=== PATIENT | male | born 1960 | race Caucasian/White ===

== ENCOUNTER 2020-07-29 18:13 | Emergency (ER) | payer OTHER, SELFPAY ==
[2020-07-29 18:22] VITALS: BP 124/80; PULSE 104; RESP 18; TEMP 36.6; O2SAT 96; BMI 25.8
--- NOTE | 2020-07-29 18:30 | ECG_ITS ---
Test Reason : weakness Blood Pressure : / mmHG Vent. Rate : 097 BPM Atrial Rate : 097 BPM P-R Int : 150 ms QRS Dur : 078 ms QT Int : 374 ms P-R-T Axes : 055 015 066 degrees QTc Int : 474 ms Normal sinus rhythm Normal ECG When compared with ECG of 03-MAY-2020 15:33, Borderline criteria for Inferior infarct are no longer Present Referred By: Denise Nina Electronically Signed By:KYLE MONTEZ
--- NOTE | 2020-07-29 18:32 | ED.NAVMDI ---
HPI - Nausea/Vomiting/Diarrhea General Chief complaint: Nausea/Vomiting/Diarrhea <Denise Nina NP - Last Filed: 07/29/20 21:19> Stated complaint: NVD <Denise Nina NP - Last Filed: 07/29/20 21:19> Time Seen by Provider: 07/29/20 18:21 <Denise Nina NP - Last Filed: 07/29/20 21:19> Source: patient and EMS <Denise Nina NP - Last Filed: 07/29/20 21:19> Mode of arrival: EMS <Denise Nina NP - Last Filed: 07/29/20 21:19> Limitations: no limitations <Denise Nina NP - Last Filed: 07/29/20 21:19> History of Present Illness HPI Narrative: 60-year-old male with a past medical history of ADD, D DD, depression, diabetes, high cholesterol, substance abuse, osteoarthritis, pancreatitis, alcohol abuse here with complaints of nausea, vomiting, diarrhea x2 days. No abdominal pain. No fevers, chills, urinary symptoms. The patient does drink daily about 2-3 nebs and has been cutting down. His last drink was today at 14:00. <Denise Nina NP - Last Filed: 07/29/20 21:19> MD elicited complaint: nausea, vomiting and diarrhea <Denise Nina NP - Last Filed: 07/29/20 21:19> Onset (ago): day(s) <Denise Nina NP - Last Filed: 07/29/20 21:19> Associated nausea: Yes <Denise Nina NP - Last Filed: 07/29/20 21:19> Associated abdominal pain: No <Denise Nina NP - Last Filed: 07/29/20 21:19> Exacerbating factors: none <Denise Nina NP - Last Filed: 07/29/20 21:19> Relieving factors: none <Denise Nina NP - Last Filed: 07/29/20 21:19> Associated symptoms: nausea/vomiting <Denise Nina NP - Last Filed: 07/29/20 21:19> Related Data Home medications: Home Medications Medication Instructions Recorded Confirmed acamprosate 333 mg tablet,delayed 666 mg PO TID 06/11/20 release amitriptyline 25 mg tablet 25 mg PO DAILY 06/11/20 bupropion HCl 150 mg tablet,12 hr 150 mg PO DAILY 06/11/20 sustained-release fluticasone furoate 50 INHALATION 06/11/20 mcg/actuation blister powder for inhalation gabapentin 300 mg tablet 300 mg PO DAILY 06/11/20 insulin glargine 100 unit/mL (3 15 unit SUBCUT BID 06/11/20 mL) subcutaneous pen insulin lispro 100 unit/mL 8 unit SUBCUT TID 06/11/20 subcutaneous pen naltrexone 50 mg tablet 50 mg PO DAILY 06/11/20 polyethylene glycol 3350 17 gram 17 g PO DAILY 06/11/20 oral powder packet quetiapine 100 mg tablet 100 mg PO DAILY 06/11/20 thiamine HCl (vitamin B1) 100 mg 50 mg PO DAILY 06/11/20 tablet Previous Rx's Medication Instructions Recorded insulin lispro 100 unit/mL 12 unit SUBCUT TID 30 Days #15 ml 05/31/20 subcutaneous pen gabapentin 400 mg capsule 400 mg PO TID #90 cap 07/02/20 cholecalciferol (vitamin D3) 25 25 mcg PO DAILY #90 cap 07/24/20 mcg (1,000 unit) capsule nabumetone 750 mg tablet 750 mg PO BID #60 tab 07/24/20 benzonatate [Tessalon Perles] 100 mg PO TID PRN #14 cap 07/30/20 prochlorperazine maleate 10 mg PO TID PRN #10 tab 07/30/20 [Compazine] <Denise Nina NP - Last Filed: 07/29/20 21:19> Allergies/Adverse reactions: Allergies Allergy/AdvReac Type Severity Reaction Status Date / Time acamprosate Allergy Unknown redness Verified 06/11/20 08:50 and itching Docusate Sodium Allergy Unknown Migraines Verified 07/16/20 14:05 <Denise Nina NP - Last Filed: 07/29/20 21:19> Review of Systems Review of Systems: Yes all other systems are reviewed and are negative <Denise Nina NP - Last Filed: 07/29/20 21:19> Constitutional: Constitutional: Reports no additional constitutional complaints, Denies body ache(s), Denies chills, Denies fever(s), Denies headache(s) and Denies weakness <Denise Nina NP - Last Filed: 07/29/20 21:19> Eyes: Eyes: Reports no additional eye complaints and Denies change in vision <Denise Nina NP - Last Filed: 07/29/20 21:19> ENT: Reports system reviewed and no additional complaints, except as documented, Denies dizziness, Denies headache(s), Denies nasal congestion, Denies nasal discharge and Denies neck pain <Denise Nina NP - Last Filed: 07/29/20 21:19> Cardiovascular: Cardiovascular: Reports no additional cardiovascular complaints, Denies chest pain, Denies leg edema and Denies dyspnea <Denise Nina NP - Last Filed: 07/29/20 21:19> Respiratory: Respiratory: Reports no additional respiratory complaints, Denies cough and Denies dyspnea <Denise Nina NP - Last Filed: 07/29/20 21:19> Gastrointestinal: Gastrointestinal: Denies abdominal pain, Reports diarrhea, Reports nausea and Reports vomiting <Denise Nina NP - Last Filed: 07/29/20 21:19> Genitourinary: Genitourinary: Denies urinary incontinence <Denise Nina NP - Last Filed: 07/29/20 21:19> Musculoskeletal: Musculoskeletal: Reports no additional musculoskeletal complaints, Denies back pain, Denies arthralgias, Denies joint swelling, Denies neck pain, Denies numbness and Denies tingling <Denise Nina NP - Last Filed: 07/29/20 21:19> Integumentary/Breasts: Skin/Breast: Reports system reviewed and no additional complaints, except as docu and Denies rash <Denise Nina NP - Last Filed: 07/29/20 21:19> Neurologic: Reports system reviewed and no additional complaints, except as documented, Denies Abnormal speech present, Denies dizziness, Denies headache(s), Denies numbness, Denies tingling and Denies weakness <Denise Nina NP - Last Filed: 07/29/20 21:19> [facility] Past Medical History Attestation statement: The following information was validated with the patient. <Denise Nina NP - Last Filed: 07/29/20 21:19> Source: old records reviewed and nursing notes reviewed <Denise Nina NP - Last Filed: 07/29/20 21:19> Medical History: Medical History Attention deficit disorder Degenerative disc disease, cervical Depression Diabetes mellitus Dyslipidemia History of substance abuse Hypotestosteronism Osteoarthritis of right hand Pancreatitis <Denise Nina NP - Last Filed: 07/29/20 21:19> Surgical History: Surgical History History of surgery <Denise Nina NP - Last Filed: 07/29/20 21:19> Family History Family History: Family History Father Cancer Mother Cancer Diabetes <Denise Nina NP - Last Filed: 07/29/20 21:19> Social History Social History: Social History Smoking Status: Current every day smoker Use of substances other than those prescribed or required for medical reasons: No Substance Use Frequency: Chronic Longstanding Last Used Substance: Hours (ago) Advance Directives: No Current occupational status: unemployed Current occupation: Right Handed <Denise Nina NP - Last Filed: 07/29/20 21:19> Physical Exam Vital Signs: Vital Signs: Last Vital Signs Temp 98.6 F 07/29/20 21:18 Pulse 89 07/29/20 23:00 Resp 17 07/29/20 22:00 BP 131/89 07/29/20 23:00 Pulse Ox 96 07/29/20 22:00 Body Mass Index 25.8 <Denise Nina NP - Last Filed: 07/29/20 21:19> Vital Signs: Last Vital Signs Temp 98.6 F 07/29/20 21:18 Pulse 89 07/29/20 23:00 Resp 17 07/29/20 22:00 BP 131/89 07/29/20 23:00 Pulse Ox 96 07/29/20 22:00 Body Mass Index 25.8 <Consuelo Izquierdo MD - Last Filed: 07/30/20 00:34> Const: General: cooperative, healthy appearing, comfortable and no acute distress <Denise Nina NP - Last Filed: 07/29/20 21:19> Orientation/consciousness: patient oriented x3 <Denise Nina NP - Last Filed: 07/29/20 21:19> Limitations: no limitations <Denise Nina NP - Last Filed: 07/29/20 21:19> HENMT: Head: Yes normal to inspection <Denise Nina NP - Last Filed: 07/29/20 21:19> Ears: hearing grossly normal bilaterally <Denise Nina NP - Last Filed: 07/29/20 21:19> General nose exam: Normal external nose present <Denise Nina NP - Last Filed: 07/29/20 21:19> Face and sinus: Yes normal facial exam <Denise Nina NP - Last Filed: 07/29/20 21:19> Mouth: Normal oral and palatal mucosa present <Denise Nina NP - Last Filed: 07/29/20 21:19> Throat: Yes posterior oropharynx normal <Denise Nina NP - Last Filed: 07/29/20 21:19> Eyes: General: appearance normal, both eyes and all related structures <Denise Nina NP - Last Filed: 07/29/20 21:19> Pupils: Equal, round and reactive pupils present <Denise Nina NP - Last Filed: 07/29/20 21:19> Neck: Neck: Yes normal visual inspection <Denise Nina NP - Last Filed: 07/29/20 21:19> Chest: Chest palpation & inspection: normal inspection of the chest <Denise Nina NP - Last Filed: 07/29/20 21:19> Resp: Effort & Inspection: normal respiratory effort <Denise Nina NP - Last Filed: 07/29/20 21:19> Auscultation: clear to auscultation bilaterally <Denise Nina ON [employer] SUPER[employer]OR - Last Filed: 07/29/20 21:19> Cardio: Rate: regular rate <Denise Nina NP - Last Filed: 07/29/20 21:19> Rhythm: regular rhythm <Denise Nina [employer]PER[employer] - Last Filed: 07/29/20 21:19> Peripheral pulses: Peripheral pulses 2+ throughout <Denise Nina NP - Last Filed: 07/29/20 21:19> GI: Inspection: Yes normal to inspection <Denise Nina NP - Last Filed: 07/29/20 21:19> Palpation (GI): Soft to palpation and nontender <Denise Nina ON [employer] SUPER[employer] - Last Filed: 07/29/20 21:19> Auscultation: normal bowel sounds <Denise Nina NP - Last Filed: 07/29/20 21:19> Back/Spine/Pelvis: Thoracic/Lumbar Spine: thoracic and lumbar spine normal to inspection <Denise Nina NP - Last Filed: 07/29/20 21:19> Skin: General skin exam: no rashes or lesions noted <Denise Nina NP - Last Filed: 07/29/20 21:19> Neuro: General: patient oriented x3, no focal motor deficits and normal sensation to monofilament <Denise Nina ON [employer] SUPER[employer]OR - Last Filed: 07/29/20 21:19> Cranial nerves: Yes Equal, round and reactive pupils present <Denise Nina NP - Last Filed: 07/29/20 21:19> Cognition (Neuro): normal cognition <Denise Nina NP - Last Filed: 07/29/20 21:19> Speech: No Abnormal speech present <Denise Nina NP - Last Filed: 07/29/20 21:19> Gait exam (Neuro): Normal gait present <Denise Nina NP - Last Filed: 07/29/20 21:19> Motor exam (neuro): 5/5 motor strength present throughout <Denise Nina NP - Last Filed: 07/29/20 21:19> Extrem: General: Yes normal to inspection <Denise Nina NP - Last Filed: 07/29/20 21:19> Course Course Course Narrative: 60-year-old male here with vomiting and diarrhea for the last 2 days. No abdominal pain or any other symptoms. He does drink daily but was able to tolerate 2 nips today with no difficultly at 14:00. Will check labs, UA, EKG. Will place PIV and give normal saline bolus and antiemetics. The patient does have a slight tremor so we will give him a dose of lorazepam. 2053-Labs reviewed and show low MG. Replacement ordered. Pt received 1L NSB and one dose antiemetic. Requesting repeat. ordered 2L NSB, IV phenergan. UA/LITTLE pending, additional labs pending. 2100-sign out to Dr Izquierdo pending above. <Denise Nina NP - Last Filed: 07/29/20 21:19> I received sign-out from JOE Nina. I discussed the labs with the patient, patient states that he does not have any abdominal pain at all. Patient still feeling nauseous, 2nd L of fluid still running, more nausea medication offered to the patient prior to discharge, patient complaining of cough. Patient states the nausea is still present but much improved, no vomiting. Chest x-ray obtained, no acute pathology. Patient feeling better, p.o. challenged, patient ready for discharge <Consuelo Izquierdo MD - Last Filed: 07/30/20 00:34> MDM - Nausea/Vomiting/Diarrhea Medical Records Attestation: I reviewed the patient's medical records. <Denise Nina NP - Last Filed: 07/29/20 21:19> Lab Data Attestation: I reviewed the patient's lab results. <Denise Nina NP - Last Filed: 07/29/20 21:19> Result diagrams: : 07/29/20 18:38 12/07/20 18:38 <Denise Nina ON [employer]PER[employer] - Last Filed: 07/29/20 21:19> Labs: Lab Results 07/29/20 07/29/20 07/29/20 Range/Units 18:38 18:38 20:49 WBC 11.9 H (4.8-10.8) X10*3/uL RBC 3.92 L (4.60-5.80) X10*6/uL Hgb 13.0 L (14.0-18.0) g/dl Hct 36.7 L (42-52) % MCV 93.6 (80-98) fL MCH 33.2 H (27.0-33.0) pg MCHC 35.4 (31.0-36.0) g/dl RDW 13.6 (11.0-16.0) % Plt Count 135 L (160-400) X10*3/uL MPV 9.1 L (9.4-12.4) fL Immature Gran % (Auto) 0.4 (0.0-0.4) % Neut % (Auto) 71.8 (45-73) % Lymph % (Auto) 20.6 (20-40) % [place] % (Auto) 6.6 (2-11) % Eos % (Auto) 0.3 (0-4) % Baso % (Auto) 0.3 (0-2) % Lymph # (Auto) 2.5 (1.2-4.9) X10*3/uL [place] # (Auto) 0.8 (0.1-1.2) X10*3/uL Eos # (Auto) 0.0 (0.0-0.4) X10*3/uL Baso # (Auto) 0.0 (0.0-0.2) X10*3/uL Abs Immat Gran (auto) 0.05 H (0.00-0.03) X10*3/uL Absolute Neuts (auto) 8.6 H (2.0-8.3) X10*3/uL Absolute Nucleated RBC 0.000 (0.0-0.012) X10*3/uL Nucleated RBC % (auto) 0.0 (0.0-0.2) /100WBC Sodium 134 L (135-145) mmol/L Potassium 3.3 (3.3-5.1) mmol/l Chloride 87 L (96-108) mmol/L Carbon Dioxide 28 (22-29) mmol/L Anion Gap 22 H (12-20) BUN 13 (9-16) mg/dL Creatinine 1.32 (0.5-1.4) mg/dL Estim Creat Clear Calc 54.3 Estimated GFR 56 Random Glucose 234 H (60-115) mg/dL Calcium 8.7 (8.4-10.2) mg/dL Magnesium 1.0 L* (1.6-2.6) mg/dL Total Bilirubin 0.8 (0.0-1.0) mg/dL Direct Bilirubin 0.4 (0.0-0.5) mg/dL AST 44 H (5-37) U/L ALT 27 (0-40) U/L Alkaline Phosphatase 125 H (39-117) U/L Total Protein 7.7 (6.5-8.0) g/dL Albumin 4.2 (3.5-5.0) g/dL Lipase 126 H (8-78) U/L Urine Color YELLOW Urine Appearance CLEAR Urine pH 6.5 (5.0-8.0) Ur Specific [place] <= 1.005 (1.005-1.025) Urine Protein NEG (NEG-TRACE) MG/DL Urine Glucose (UA) NEG (NEG) MG/DL Urine Ketones NEG (NEG) MG/DL Urine Blood TRACE (NEG) Urine Nitrite NEG (NEG) Ur Leukocyte Esterase NEG (NEG) Urine RBC 1-4 (0) /HPF Urine WBC 0 (0-4) /HPF Ur Squamous Epith Cells 1+ /LPF Urine Bacteria NONE /LPF Urine Opiates Screen (Not Detect) Ur Barbiturates Screen (Not Detect) Ur Phencyclidine Scrn (Not Detect) Ur Amphetamines Screen (Not Detect) U Benzodiazepines Scrn (Not Detect) Urine Cocaine Screen (Not Detect) U Marijuana (THC) Screen (Not Detect) 07/29/20 Range/Units 20:49 WBC (4.8-10.8) X10*3/uL RBC (4.60-5.80) X10*6/uL Hgb (14.0-18.0) g/dl Hct (42-52) % MCV (80-98) fL MCH (27.0-33.0) pg MCHC (31.0-36.0) g/dl RDW (11.0-16.0) % Plt Count (160-400) X10*3/uL MPV (9.4-12.4) fL Immature Gran % (Auto) (0.0-0.4) % Neut % (Auto) (45-73) % Lymph % (Auto) (20-40) % [place] % (Auto) (2-11) % Eos % (Auto) (0-4) % Baso % (Auto) (0-2) % Lymph # (Auto) (1.2-4.9) X10*3/uL [place] # (Auto) (0.1-1.2) X10*3/uL Eos # (Auto) (0.0-0.4) X10*3/uL Baso # (Auto) (0.0-0.2) X10*3/uL Abs Immat Gran (auto) (0.00-0.03) X10*3/uL Absolute Neuts (auto) (2.0-8.3) X10*3/uL Absolute Nucleated RBC (0.0-0.012) X10*3/uL Nucleated RBC % (auto) (0.0-0.2) /100WBC Sodium (135-145) mmol/L Potassium (3.3-5.1) mmol/l Chloride (96-108) mmol/L Carbon Dioxide (22-29) mmol/L Anion Gap (12-20) BUN (9-16) mg/dL Creatinine (0.5-1.4) mg/dL Estim Creat Clear Calc Estimated GFR Random Glucose (60-115) mg/dL Calcium (8.4-10.2) mg/dL Magnesium (1.6-2.6) mg/dL Total Bilirubin (0.0-1.0) mg/dL Direct Bilirubin (0.0-0.5) mg/dL AST (5-37) U/L ALT (0-40) U/L Alkaline Phosphatase (39-117) U/L Total Protein (6.5-8.0) g/dL Albumin (3.5-5.0) g/dL Lipase (8-78) U/L Urine Color Urine Appearance Urine pH (5.0-8.0) Ur Specific [place] (1.005-1.025) Urine Protein (NEG-TRACE) MG/DL Urine Glucose (UA) (NEG) MG/DL Urine Ketones (NEG) MG/DL Urine Blood (NEG) Urine Nitrite (NEG) Ur Leukocyte Esterase (NEG) Urine RBC (0) /HPF Urine WBC (0-4) /HPF Ur Squamous Epith Cells /LPF Urine Bacteria /LPF Urine Opiates Screen Not Detected (Not Detect) Ur Barbiturates Screen Not Detected (Not Detect) Ur Phencyclidine Scrn Not Detected (Not Detect) Ur Amphetamines Screen Not Detected (Not Detect) U Benzodiazepines Scrn Not Detected (Not Detect) Urine Cocaine Screen Not Detected (Not Detect) U Marijuana (THC) Screen Not Detected (Not Detect) <Denise Nina NP - Last Filed: 07/29/20 21:19> Lab Results 07/29/20 07/29/20 07/29/20 Range/Units 18:38 18:38 20:49 WBC 11.9 H (4.8-10.8) X10*3/uL RBC 3.92 L (4.60-5.80) X10*6/uL Hgb 13.0 L (14.0-18.0) g/dl Hct 36.7 L (42-52) % MCV 93.6 (80-98) fL MCH 33.2 H (27.0-33.0) pg MCHC 35.4 (31.0-36.0) g/dl RDW 13.6 (11.0-16.0) % Plt Count 135 L (160-400) X10*3/uL MPV 9.1 L (9.4-12.4) fL Immature Gran % (Auto) 0.4 (0.0-0.4) % Neut % (Auto) 71.8 (45-73) % Lymph % (Auto) 20.6 (20-40) % [place] % (Auto) 6.6 (2-11) % Eos % (Auto) 0.3 (0-4) % Baso % (Auto) 0.3 (0-2) % Lymph # (Auto) 2.5 (1.2-4.9) X10*3/uL [place] # (Auto) 0.8 (0.1-1.2) X10*3/uL Eos # (Auto) 0.0 (0.0-0.4) X10*3/uL Baso # (Auto) 0.0 (0.0-0.2) X10*3/uL Abs Immat Gran (auto) 0.05 H (0.00-0.03) X10*3/uL Absolute Neuts (auto) 8.6 H (2.0-8.3) X10*3/uL Absolute Nucleated RBC 0.000 (0.0-0.012) X10*3/uL Nucleated RBC % (auto) 0.0 (0.0-0.2) /100WBC Sodium 134 L (135-145) mmol/L Potassium 3.3 (3.3-5.1) mmol/l Chloride 87 L (96-108) mmol/L Carbon Dioxide 28 (22-29) mmol/L Anion Gap 22 H (12-20) BUN 13 (9-16) mg/dL Creatinine 1.32 (0.5-1.4) mg/dL Estim Creat Clear Calc 54.3 Estimated GFR 56 Random Glucose 234 H (60-115) mg/dL Calcium 8.7 (8.4-10.2) mg/dL Magnesium 1.0 L* (1.6-2.6) mg/dL Total Bilirubin 0.8 (0.0-1.0) mg/dL Direct Bilirubin 0.4 (0.0-0.5) mg/dL AST 44 H (5-37) U/L ALT 27 (0-40) U/L Alkaline Phosphatase 125 H (39-117) U/L Total Protein 7.7 (6.5-8.0) g/dL Albumin 4.2 (3.5-5.0) g/dL Lipase 126 H (8-78) U/L Urine Color YELLOW Urine Appearance CLEAR Urine pH 6.5 (5.0-8.0) Ur Specific [place] <= 1.005 (1.005-1.025) Urine Protein NEG (NEG-TRACE) MG/DL Urine Glucose (UA) NEG (NEG) MG/DL Urine Ketones NEG (NEG) MG/DL Urine Blood TRACE (NEG) Urine Nitrite NEG (NEG) Ur Leukocyte Esterase NEG (NEG) Urine RBC 1-4 (0) /HPF Urine WBC 0 (0-4) /HPF Ur Squamous Epith Cells 1+ /LPF Urine Bacteria NONE /LPF Urine Opiates Screen (Not Detect) Ur Barbiturates Screen (Not Detect) Ur Phencyclidine Scrn (Not Detect) Ur Amphetamines Screen (Not Detect) U Benzodiazepines Scrn (Not Detect) Urine Cocaine Screen (Not Detect) U Marijuana (THC) Screen (Not Detect) 07/29/20 Range/Units 20:49 WBC (4.8-10.8) X10*3/uL RBC (4.60-5.80) X10*6/uL Hgb (14.0-18.0) g/dl Hct (42-52) % MCV (80-98) fL MCH (27.0-33.0) pg MCHC (31.0-36.0) g/dl RDW (11.0-16.0) % Plt Count (160-400) X10*3/uL MPV (9.4-12.4) fL Immature Gran % (Auto) (0.0-0.4) % Neut % (Auto) (45-73) % Lymph % (Auto) (20-40) % [place] % (Auto) (2-11) % Eos % (Auto) (0-4) % Baso % (Auto) (0-2) % Lymph # (Auto) (1.2-4.9) X10*3/uL [place] # (Auto) (0.1-1.2) X10*3/uL Eos # (Auto) (0.0-0.4) X10*3/uL Baso # (Auto) (0.0-0.2) X10*3/uL Abs Immat Gran (auto) (0.00-0.03) X10*3/uL Absolute Neuts (auto) (2.0-8.3) X10*3/uL Absolute Nucleated RBC (0.0-0.012) X10*3/uL Nucleated RBC % (auto) (0.0-0.2) /100WBC Sodium (135-145) mmol/L Potassium (3.3-5.1) mmol/l Chloride (96-108) mmol/L Carbon Dioxide (22-29) mmol/L Anion Gap (12-20) BUN (9-16) mg/dL Creatinine (0.5-1.4) mg/dL Estim Creat Clear Calc Estimated GFR Random Glucose (60-115) mg/dL Calcium (8.4-10.2) mg/dL Magnesium (1.6-2.6) mg/dL Total Bilirubin (0.0-1.0) mg/dL Direct Bilirubin (0.0-0.5) mg/dL AST (5-37) U/L ALT (0-40) U/L Alkaline Phosphatase (39-117) U/L Total Protein (6.5-8.0) g/dL Albumin (3.5-5.0) g/dL Lipase (8-78) U/L Urine Color Urine Appearance Urine pH (5.0-8.0) Ur Specific [place] (1.005-1.025) Urine Protein (NEG-TRACE) MG/DL Urine Glucose (UA) (NEG) MG/DL Urine Ketones (NEG) MG/DL Urine Blood (NEG) Urine Nitrite (NEG) Ur Leukocyte Esterase (NEG) Urine RBC (0) /HPF Urine WBC (0-4) /HPF Ur Squamous Epith Cells /LPF Urine Bacteria /LPF Urine Opiates Screen Not Detected (Not Detect) Ur Barbiturates Screen Not Detected (Not Detect) Ur Phencyclidine Scrn Not Detected (Not Detect) Ur Amphetamines Screen Not Detected (Not Detect) U Benzodiazepines Scrn Not Detected (Not Detect) Urine Cocaine Screen Not Detected (Not Detect) U Marijuana (THC) Screen Not Detected (Not Detect) <Consuelo Izquierdo MD - Last Filed: 07/30/20 00:34> Imaging Data Chest x-ray: Radiologist's impression: The lungs are hypoexpanded. No focal infiltrate, effusion, edema, or pneumothorax. Cardiac and mediastinal silhouettes are within normal limits for technique. No acute bony abnormality seen. XR/XR chest 1V IMPRESSION: Hypoexpanded but otherwise no evidence of acute disease <Consuelo Izquierdo MD - Last Filed: 07/30/20 00:34> ECG Data Attestation: I personally reviewed and interpreted this ECG as follows: <Denise Nina NP - Last Filed: 07/29/20 21:19> ECG interpretation date: 07/29/20 <Denise Nina NP - Last Filed: 07/29/20 21:19> ECG interpretation time: 18:52 <Denise Nina NP - Last Filed: 07/29/20 21:19> Interpretation: normal sinus rhythm, normal NH, normal QRS, normal QTC, normal ST segment <Denise Nina NP - Last Filed: 07/29/20 21:19> Discharge Plan Discharge Clinical Impression: Cough Vomiting Qualifiers: Vomiting type: unspecified Vomiting Intractability: non-intractable Nausea presence: with nausea Qualified Code(s): R11.2 - Nausea with vomiting, unspecified <Denise Nina NP - Last Filed: 07/29/20 21:19> Patient Disposition: Home, Self-Care <Denise Nina NP - Last Filed: 07/29/20 21:19> Instructions: Acute Nausea and Vomiting (ED) <Denise Nina NP - Last Filed: 07/29/20 21:19> Additional Instructions: Please follow-up with your primary care physician tomorrow. If you have any worsening or new symptoms, please return to the emergency room or call 911 <Denise Nina NP - Last Filed: 07/29/20 21:19> Prescriptions: New prochlorperazine maleate [Compazine] 10 mg tablet 10 mg PO TID PRN (Reason: nausea and vomiting) Qty: 10 RF: 0 benzonatate [Tessalon Perles] 100 mg capsule 100 mg PO TID PRN (Reason: cough) Qty: 14 RF: 0 No Action insulin lispro [Admelog SoloStar U-100 Insulin] 100 unit/mL insulin pen 12 unit subcut TID 30 Days Qty: 15 RF: 1 gabapentin 400 mg capsule 400 mg PO TID Qty: 90 RF: 0 nabumetone 750 mg tablet 750 mg PO BID Qty: 60 RF: 1 cholecalciferol (vitamin D3) 25 mcg (1,000 unit) capsule 25 mcg PO DAILY Qty: 90 RF: 2 <Denise Nina NP - Last Filed: 07/29/20 21:19>
[2020-07-29 18:50] LABS: Basophils Percent Auto 0.3 % (0-2); Eosinophils Percent Auto 0.3 % (0-4); Hematocrit 36.7 % (42-52); Imm Gran Abs Auto 0.05 X10*3/uL (0.00-0.03); Imm Gran Pct Auto 0.4 % (0.0-0.4); Lymphocytes Absolute Auto 2.5 X10*3/uL (1.2-4.9); Lymphocytes Percent Auto 20.6 % (20-40); MANUAL DIFF FLAG NO; Mean Corpuscular HGB Conc 35.4 g/dl (31.0-36.0); Mean Corpuscular Hemoglobin 33.2 pg (27.0-33.0); Mean Corpuscular Volume 93.6 fL (80-98); Mean Platelet Volume 9.1 fL (9.4-12.4); Monocytes Absolute Auto 0.8 X10*3/uL (0.1-1.2); Monocytes Percent Auto 6.6 % (2-11); Neutrophils Absolute Auto 8.6 X10*3/uL (2.0-8.3); Neutrophils Percent Auto 71.8 % (45-73); Platelet Count 135 X10*3/uL (160-400); Red Blood Count 3.92 X10*6/uL (4.60-5.80); Red Cell Distribution Width 13.6 % (11.0-16.0); White Blood Count 11.9 X10*3/uL (4.8-10.8)
[2020-07-29] MEDS: LORazepam 2 MG/ML VIAL 1 MG IVPUSH (18:54)
[2020-07-29] MEDS: ondansetron HCL 4 MG/2 ML VIAL IVPUSH (18:54)
[2020-07-29] MEDS: 0.9 % Sodium Chloride 1,000 ML 999 ML IV ×2 (18:58→21:16)
[2020-07-29 19:28] LABS: Alanine Aminotransferase 27 U/L (0-40); Albumin Level 4.2 g/dL (3.5-5.0); Alkaline Phosphatase 125 U/L (39-117); Anion Gap 22 (12-20); Aspartate Amino Transferase 44 U/L (5-37); Bilirubin Direct 0.4 mg/dL (0.0-0.5); Bilirubin Total 0.8 mg/dL (0.0-1.0); Blood Urea Nitrogen 13 mg/dL (9-16); Calcium 8.7 mg/dL (8.4-10.2); Carbon Dioxide 28 mmol/L (22-29); Chloride 87 mmol/L (96-108); Creatinine Clr Calc Pharmacy 54.3; Estimated Glomerular Filt Rate 56; Glucose Random 234 mg/dL (60-115); Potassium 3.3 mmol/l (3.3-5.1); Sodium 134 mmol/L (135-145); Total Protein 7.7 g/dL (6.5-8.0)
[2020-07-29] MEDS: Magnesium Sulfate/H2O 2 GM/50 ML PIGGYBACK IV (19:43)
[2020-07-29 20:59] LABS: Appearance Urine CLEAR; Color Urine YELLOW; Glucose Urine UA NEG (NEG); Leukocyte Esterase Urine NEG (NEG); Nitrite Urine NEG (NEG); PH 6.5 (5.0-8.0); Specific Gravity - Urine <= 1.005 (1.005-1.025); Urine Blood TRACE (NEG); Urine Ketones NEG (NEG); Urine Protein NEG (NEG-TRACE)
[2020-07-29 21:10] LABS: Squamous Epithelial Cell Urine 1+ /LPF; WBC Urine 0 /HPF (0-4)
[2020-07-29 21:18] VITALS: BP 121/88; PULSE 95; RESP 18; TEMP 37; O2SAT 95
[2020-07-29 21:18] LABS: Lipase 126 U/L (8-78)
[2020-07-29 21:37] LABS: Amphetamine Screen Urine Not Detected (Not Detect); Barbiturates, Urine Not Detected (Not Detect); Benzodiazepines Screen Urine Not Detected (Not Detect); Cannabinoid Screen Urine Not Detected (Not Detect); Cocaine Screen Urine Not Detected (Not Detect); Opiate Screen Urine Not Detected (Not Detect); Phencyclidine Screen Urine Not Detected (Not Detect)
[2020-07-29 22:00] VITALS: BP 128/86; PULSE 93; RESP 17; O2SAT 96
[2020-07-29] MEDS: Prochlorperazine Edisylate 10 MG/2 ML VIAL IVPUSH (22:37)
[2020-07-29 23:00] VITALS: BP 131/89; PULSE 89
--- NOTE | 2020-07-29 23:40 | PC.NURSE ---
PT COUGHING. LUNGS CLEAR, DIM. ABD HURTS WHEN PT COUGHS. NAUSEA BETTER PER PATIENT. DR MCDONALD AWARE. SEE ORDERS.
--- NOTE | 2020-07-29 23:45 | XR_ITS ---
EXAMINATION: PORTABLE CHEST 1 VIEW CLINICAL INFORMATION: cough . COMPARISON: 11/03/2019. TECHNIQUE: Portable frontal view of the chest was obtained. FINDINGS: The lungs are hypoexpanded. No focal infiltrate, effusion, edema, or pneumothorax. Cardiac and mediastinal silhouettes are within normal limits for technique. No acute bony abnormality seen. XR/XR chest 1V IMPRESSION: Hypoexpanded but otherwise no evidence of acute disease
[2020-07-30] MEDS: Benzonatate 100 MG CAPSULE PO (00:13)
== END 2020-07-30 00:46 | disposition home or self-care (01) ==
PROVIDERS: Nurse Practitioner Family; Emergency Provider Emergency Medicine; PCP Internal Medicine
DX: R05 Cough (principal); R11.2 Nausea with vomiting, unspecified; E11.9 Type 2 diabetes mellitus without complications; F17.200 Nicotine dependence, unspecified, uncomplicated; F10.10 Alcohol abuse, uncomplicated; Y90.9 Presence of alcohol in blood, level not specified; Z79.4 Long term (current) use of insulin; Z79.899 Other long term (current) drug therapy
CPT/HCPCS: 36415; 71045; 80048; 80076; 80307; 81001; 83690; 83735; 85025; 93005; 96361; 96365; 96366; 96375; 99284; J2060; J2405; J3475

== ENCOUNTER 2020-09-12 16:38 | Inpatient (IN) | payer OTHER, SELFPAY ==
[2020-09-12] VITALS (7 sets, daily range): BP systolic 95–122; BP diastolic 65–88; PULSE 78–98; RESP 11–17; TEMP 36–36.4; O2SAT 97–100; BMI 25.0
--- NOTE | 2020-09-12 17:01 | ED_ITS ---
HPI - Weakness General Chief complaint: Failure to Thrive <eDnise Nina NP - Last Filed: 09/13/20 00:58> Stated complaint: wakness <Denise Nina NP - Last Filed: 09/13/20 00:58> Time Seen by Provider: 09/12/20 17:00 <Denise Nina NP - Last Filed: 09/13/20 00:58> Source: EMS <Denise Nina NP - Last Filed: 09/13/20 00:58> Mode of arrival: EMS <Denise Nina NP - Last Filed: 09/13/20 00:58> Limitations: no limitations <Denise Nina NP - Last Filed: 09/13/20 00:58> History of Present Illness HPI Narrative: 60-year-old male with a past medical history of ADD, DDD, depression, high cholesterol, substance abuse, osteoarthritis, pancreatitis, alcohol abuse, diabetes here with complaints of generalized weakness x several days. EMS was called by a stepdamorales for a well check as she has not seen him in more then one month. PD and EMS on scene found the house in disarray, bugs everywhere, patient laying down surrounding by empty nip bottles. Concern that he is not medication compliant. Sent in on section 12. Patient is c/o of lower extremity pain, weakness, malaise, nausea. <Denise Nina NP - Last Filed: 09/13/20 00:58> MD Complaint: generalized weakness <Denise Nina NP - Last Filed: 09/13/20 00:58> Related Data Home medications: Previous Rx's Medication Instructions Recorded insulin lispro 100 unit/mL 12 unit SUBCUT TID 30 Days #15 ml 05/31/20 subcutaneous pen gabapentin 400 mg capsule 400 mg PO TID #90 cap 07/02/20 cholecalciferol (vitamin D3) 25 25 mcg PO DAILY #90 cap 08/12/20 mcg (1,000 unit) capsule Basaglar KwikPen U-100 Insulin 10 unit SUBCUT QPM #0 ml 09/23/20 magnesium oxide 400 mg PO BIDPC #1 tab 09/23/20 midodrine 5 mg PO TID #1 tab 09/23/20 quetiapine 100 mg PO BEDTIME #1 tab 09/23/20 <Denise Nina NP - Last Filed: 09/13/20 00:58> Allergies/Adverse reactions: Allergies Allergy/AdvReac Type Severity Reaction Status Date / Time acamprosate Allergy Unknown redness Verified 06/11/20 08:50 and itching Docusate Sodium Allergy Unknown Migraines Verified 07/16/20 14:05 <Denise Nina NP - Last Filed: 09/13/20 00:58> Review of Systems Review of Systems: Yes all other systems are reviewed and are negative <Denise Nina NP - Last Filed: 09/13/20 00:58> Constitutional: Constitutional: Reports no additional constitutional c omplaints, Denies body ache(s), Denies chills, Denies fever(s), Denies headache(s), Reports malaise and Reports weakness <Denise Nina NP - Last Filed: 09/13/20 00:58> Eyes: Eyes: Reports no additional eye complaints and Denies change in vision <Denise Nina NP - Last Filed: 09/13/20 00:58> ENT: Reports system reviewed and no additional complaints, except as documented, Denies dizziness, Denies headache(s), Denies nasal congestion, Denies nasal discharge and Denies neck pain <IVAN Sunshine Last Filed: 09/13/20 00:58> Cardiovascular: Cardiovascular: Reports no additional cardiovascular complaints, Denies chest pain, Denies leg edema and Denies dyspnea <Denise Nina NP - Last Filed: 09/13/20 00:58> Respiratory: Respiratory: Reports no additional respiratory complaints, Denies cough and Denies dyspnea <Denise Nina NP - Last Filed: 09/13/20 00:58> Gastrointestinal: Gastrointestinal: Reports no additional gastrointestinal complaints, Denies abdominal pain, Denies diarrhea, Reports nausea and Denies vomiting <IVAN Sunshine Last Filed: 09/13/20 00:58> Genitourinary: Genitourinary: Denies urinary incontinence <Denise Nina NP - Last Filed: 09/13/20 00:58> Musculoskeletal: Musculoskeletal: Reports no additional musculoskeletal complaints, Denies back pain, Reports arthralgias, Reports joint swelling, Denies neck pain, Denies numbness and Denies tingling <Denise Nina NP - Last Filed: 09/13/20 00:58> Integumentary/Breasts: Skin/Breast: Reports system reviewed and no additional complaints, except as docu and Denies rash <Denise Nina NP - Last Filed: 09/13/20 00:58> Neurologic: Reports system reviewed and no additional complaints, except as documented, Denies Abnormal speech present, Denies dizziness, Denies headache(s), Denies numbness, Denies tingling and Reports weakness <Denise Nina NP - Last Filed: 09/13/20 00:58> PMFSH Past Medical History Attestation statement: The following information was validated with the patient. <Denise Nina NP - Last Filed: 09/13/20 00:58> Source: old records reviewed and nursing notes reviewed <Denise Nina NP - Last Filed: 09/13/20 00:58> Medical History: Medical History Attention deficit disorder Degenerative disc disease, cervical Depression Diabetes mellitus Dyslipidemia History of substance abuse Hypotestosteronism Osteoarthritis of right hand Pancreatitis <Denise Nina NP - Last Filed: 09/13/20 00:58> Surgical History: Surgical History History of surgery <Denise Nina NP - Last Filed: 09/13/20 00:58> Family History Family History: Family History Father Cancer Mother Cancer Diabetes <Denise Nina NP - Last Filed: 09/13/20 00:58> Social History Social History: Social History Household Members: None Housing: Unknown / Unable to assess Alcohol intake: current Alcohol intake frequency: 0-2 drinks per day Alcohol type: hard liquor Smoking Status: Current every day smoker Tobacco Type: Cigarette service: No Current occupational status: unemployed Current occupation: Right Handed <Denise Nina NP - Last Filed: 09/13/20 00:58> Physical Exam Vital Signs: Vital Signs: Last Vital Signs Temp 97.5 F 09/24/20 07:42 Pulse 72 09/24/20 12:00 Resp 09/24/20 07:42 BP 90/60 09/24/20 12:00 Pulse Ox 99 09/24/20 12:00 Body Mass Index 25.0 <Deinse Nina NP - Last Filed: 09/13/20 00:58> Vital Signs: Last Vital Signs Temp 97.5 F 09/24/20 07:42 Pulse 72 09/24/20 12:00 Resp 09/24/20 07:42 BP 90/60 09/24/20 12:00 Pulse Ox 99 09/24/20 12:00 Body Mass Index 25.0 <Poli Pizano MD - Last Filed: 09/25/20 07:44> Const: Other: Eyes closed, open to verbal <Denise Nina NP - Last Filed: 09/13/20 00:58> General: ill appearing and poor hygiene <Denise Nina NP - Last Filed: 09/13/20 00:58> Nutritional Appearance: malnourished <Denise Nina NP - Last Filed: 09/13/20 00:58> Orientation/consciousness: oriented to person and oriented to place <Denise Nina NP - Last Filed: 09/13/20 00:58> Limitations: altered mental status <Denise Nina NP - Last Filed: 09/13/20 00:58> HENMT: Head: Yes normal to inspection <Denise Nina NP - Last Filed: 09/13/20 00:58> Ears: hearing grossly normal bilaterally <Denise Nina NP - Last Filed: 09/13/20 00:58> General nose exam: Normal external nose present <Denise Nina NP - Last Filed: 09/13/20 00:58> Face and sinus: Yes normal facial exam <Denise Nina NP - Last Filed: 09/13/20 00:58> Mouth: moist mucous membranes abnormal (tacky) <Denise Nina NP - Last Filed: 09/13/20 00:58> Throat: Yes posterior oropharynx normal <Denise Nina NP - Last Filed: 09/13/20 00:58> Eyes: General: appearance normal, both eyes and all related structures <Denise Nina NP - Last Filed: 09/13/20 00:58> Visual Stevenson: normal visual stevenson by confrontation <Denise Nina NP - Last Filed: 09/13/20 00:58> Alignment and Position: alignment normal <Denise Nina NP - Last Filed: 09/13/20 00:58> Periorbital: periorbital findings normal <Denise Nina NP - Last Filed: 09/13/20 00:58> Eyelids: Yes eyelids normal <Denise Nina NP - Last Filed: 09/13/20 00:58> Conjunctivae: conjunctival abnormal (bilateral conjunctival injection with purulent drainage, crusting ) <Denise Nina NP - Last Filed: 09/13/20 00:58> Sclerae: sclerae normal <Denise Nina NP - Last Filed: 09/13/20 00:58> Corneas: corneas normal <Denise Nina NP - Last Filed: 09/13/20 00:58> Pupils: Equal, round and reactive pupils present <Denise Nina NP - Last Filed: 09/13/20 00:58> EOM: EOMs intact bilaterally <Denise Nina NP - Last Filed: 09/13/20 00:58> Neck: Other: No cervical tenderness,step offs or deformities <Denise Nina NP - Last Filed: 09/13/20 00:58> Neck: Yes normal visual inspection <Denise Nina NP - Last Filed: 09/13/20 00:58> Chest: Chest palpation & inspection: normal inspection of the chest <Denise Nina NP - Last Filed: 09/13/20 00:58> Resp: Effort & Inspection: normal respiratory effort <Denise Nian NP - Last Filed: 09/13/20 00:58> Auscultation: clear to auscultation bilaterally <Denise Nina NP - Last Filed: 09/13/20 00:58> Cardio: Rate: regular rate <Denise Nina NP - Last Filed: 09/13/20 00:58> Rhythm: regular rhythm <Denise Nina NP - Last Filed: 09/13/20 00:58> Peripheral pulses: Peripheral pulses 2+ throughout <Denise Nina NP - Last Filed: 09/13/20 00:58> GI: Inspection: Yes normal to inspection <Denise Nina NP - Last Filed: 09/13/20 00:58> Palpation (GI): Soft to palpation and nontender <Denise Nina NP - Last Filed: 09/13/20 00:58> Auscultation: normal bowel sounds <Denise Nina NP - Last Filed: 09/13/20 00:58> Back/Spine/Pelvis: Thoracic/Lumbar Spine: thoracic and lumbar spine normal to inspection <Denise Nina NP - Last Filed: 09/13/20 00:58> Skin: General skin exam: no rashes or lesions noted <Denise Nina NP - Last Filed: 09/13/20 00:58> Neuro: General: oriented to person, oriented to place, no focal motor deficits, normal sensation to monofilament and Unable to assess gait <Denise Nina NP - Last Filed: 09/13/20 00:58> Cranial nerves: Yes Equal, round and reactive pupils present <Denise Nina NP - Last Filed: 09/13/20 00:58> Cognition (Neuro): normal cognition <Denise Nina NP - Last Filed: 09/13/20 00:58> Speech: No Abnormal speech present <Denise Nina NP - Last Filed: 09/13/20 00:58> Gait exam (Neuro): Unable to assess gait <Denise Nina NP - Last Filed: 09/13/20 00:58> Motor exam (neuro): 5/5 motor strength present throughout <Denise Nina NP - Last Filed: 09/13/20 00:58> Extrem: Other: Bilateral lower extremities cool to touch, discoloration noted. Doppler DP pulses obtained. FROM although entire legs tender to palp. <Denise Nina NP - Last Filed: 09/13/20 00:58> General: Yes normal to inspection <Denise Nina NP - Last Filed: 09/13/20 00:58> Course Course Course Narrative: 60 yo male here on section 12 here with generalized weakness, nausea, ma laise, lower extremity pain. Sent in for an unkept house, department of Health was notified by EMS and PD. Patient was found surrounded by empty nip bottles. On arrival unkept appearing, lower extremity bruising and discoloration, bilateral conjunctival injection/exudate. Oriented x2, equal hand grasps, speech normal (no focal deficits). Will check labs including blood cultures and lactic acid, chest x-ray, CT head, UA, LITTLE, EKG. 1814-CT head negative. X-rays unremarkable. COVID test negative. UA negative. Labs show an LIANA, hyperglycemia, hypochloremia, moderate acetone. Elevated lactic acid secondary to dehydration and not underlying infection. Corrected sodium 136. Fluids are infusing 30cc/kg for total 2200ml. Insulin ordered IV will plan to recheck BMP in 1 hour. EKG shows T wave inversions which appear new when compared to previous. NO Chest pain. Troponin x2 unchanged. 2300-repeat BMP shows improved glucose and renal function. However, the patient now has a potassium of 2.4. Ordered replacement both p.o. and IV. Lethargy and mild confusion likely secondary metabolic encephalopathy. Discussed with hospitalist Dr. Shepard who accepted patient. 0040-CT A/P ordered by medicine for complaints of abdominal pain reads as once agan soft tissue stranding around the pancreas which may well represent sequela of pancreatitis. While While this overall is not significantly changed from previous there is some increasing density in the region of the pancreatic tail extending cephalad posterior to the stomach and this could represent a complex fluid collection and/or organizing inflammatory change. It is soft tissue density therefore solid structure such as a lesion would need to be considered. Consider an MRI here a postcontrast CT to fully evaluate. This area measures 3.2 x 1.9 x 2.7 cm. At this time infection suspected. Antibiotics ordered. <Denise Nina NP - Last Filed: 09/13/20 00:58> I have discussed the case and management with the KATHLEEN, will hydrate and bring glucose down, no evidence of sepsis <Poli Pizano MD - Last Filed: 09/25/20 07:44> MDM - Weakness MDM Narrative Medical decision making narrative: ICH vs Lesion, metabolic cause, Underlying infection, deconditioning, ACS, FTT <Denise Nina NP - Last Filed: 09/13/20 00:58> Medical Records Attestation: I reviewed the patient's medical records. <Denise Nina NP - Last Filed: 09/13/20 00:58> Lab Data Attestation: I reviewed the patient's lab results. <Denise Nina NP - Last Filed: 09/13/20 00:58> Result diagrams: : 09/21/20 06:28 09/21/20 06:28 <Denise Nina NP - Last Filed: 09/13/20 00:58> Labs: Lab Results 09/12/20 09/12/20 09/12/20 Range/Units 17:10 17:23 17:23 WBC 8.2 (4.8-10.8) X10*3/uL RBC 4.21 L (4.60-5.80) X10*6/uL Hgb 13.4 L (14.0-18.0) g/dl Hct 37.1 L (42-52) % MCV 88.1 (80-98) fL MCH 31.8 (27.0-33.0) pg MCHC 36.1 H (31.0-36.0) g/dl RDW 13.9 (11.0-16.0) % Plt Count 61 L D (160-400) X10*3/uL MPV 9.4 (9.4-12.4) fL Immature Gran % (Auto) 0.7 H (0.0-0.4) % Neut % (Auto) 82.3 H (45-73) % Lymph % (Auto) 11.4 L (20-40) % [place] % (Auto) 5.5 (2-11) % Eos % (Auto) 0.1 (0-4) % Baso % (Auto) 0.0 (0-2) % Lymph # (Auto) 0.9 L (1.2-4.9) X10*3/uL [place] # (Auto) 0.5 (0.1-1.2) X10*3/uL Eos # (Auto) 0.0 (0.0-0.4) X10*3/uL Baso # (Auto) 0.0 (0.0-0.2) X10*3/uL Abs Immat Gran (auto) 0.06 H (0.00-0.03) X10*3/uL Absolute Neuts (auto) 6.7 (2.0-8.3) X10*3/uL Absolute Nucleated RBC 0.020 H (0.0-0.012) X10*3/uL Nucleated RBC % (auto) 0.2 (0.0-0.2) /100WBC PT 13.7 H (10.8-13.0) SEC INR 1.2 H (0.9-1.1) VBG pH (7.32-7.43) VBG pCO2 mmHg VBG pO2 mmHg VBG HCO3 mmol/L VBG O2 Saturation % VBG Base Excess mmol/L Sodium (135-145) mmol/L Potassium (3.3-5.1) mmol/l Chloride (96-108) mmol/L Carbon Dioxide (22-29) mmol/L Anion Gap (12-20) BUN (9-16) mg/dL Creatinine (0.5-1.4) mg/dL Estim Creat Clear Calc Estimated GFR POC Glucose 532 H* (60-115) mg/dL Random Glucose (60-115) mg/dL Osmolality (281-305) mosm/kg Lactic Acid (0.5-2.0) mmol/L Lactic Acid Fup @ 2Hr (0.5-2.0) mmol/L Calcium (8.4-10.2) mg/dL Phosphorus (2.7-4.5) mg/dL Magnesium (1.6-2.6) mg/dL Total Bilirubin (0.0-1.0) mg/dL Direct Bilirubin (0.0-0.5) mg/dL AST (5-37) U/L ALT (0-40) U/L Alkaline Phosphatase (39-117) U/L Total Creatine Kinase (38-174) U/L Troponin I High Sens (<3.5-35.0) ng/L Total Protein (6.5-8.0) g/dL Albumin (3.5-5.0) g/dL Urine Color Urine Appearance Urine pH (5.0-8.0) Ur Specific [place] (1.005-1.025) Urine Protein (NEG-TRACE) MG/DL Urine Glucose (UA) (NEG) MG/DL Urine Ketones (NEG) MG/DL Urine Blood (NEG) Urine Nitrite (NEG) Ur Leukocyte Esterase (NEG) Urine RBC (0) /HPF Urine WBC (0-4) /HPF Ur Squamous Epith Cells /LPF Amorphous Sediment /LPF Urine Bacteria /LPF Urine Opiates Screen (Not Detect) Ur Barbiturates Screen (Not Detect) Ur Phencyclidine Scrn (Not Detect) Ur Amphetamines Screen (Not Detect) U Benzodiazepines Scrn (Not Detect) Urine Cocaine Screen (Not Detect) U Marijuana (THC) Screen (Not Detect) Ethyl Alcohol mg/dL Acetone, Qual (Negative) COVID-19 (KAYLA) (Negative) COVID-19 Clin Com 09/12/20 09/12/20 09/12/20 Range/Units 17:23 17:23 17:23 WBC (4.8-10.8) X10*3/uL RBC (4.60-5.80) X10*6/uL Hgb (14.0-18.0) g/dl Hct (42-52) % MCV (80-98) fL MCH (27.0-33.0) pg MCHC (31.0-36.0) g/dl RDW (11.0-16.0) % Plt Count (160-400) X10*3/uL MPV (9.4-12.4) fL Immature Gran % (Auto) (0.0-0.4) % Neut % (Auto) (45-73) % Lymph % (Auto) (20-40) % [place] % (Auto) (2-11) % Eos % (Auto) (0-4) % Baso % (Auto) (0-2) % Lymph # (Auto) (1.2-4.9) X10*3/uL [place] # (Auto) (0.1-1.2) X10*3/uL Eos # (Auto) (0.0-0.4) X10*3/uL Baso # (Auto) (0.0-0.2) X10*3/uL Abs Immat Gran (auto) (0.00-0.03) X10*3/uL Absolute Neuts (auto) (2.0-8.3) X10*3/uL Absolute Nucleated RBC (0.0-0.012) X10*3/uL Nucleated RBC % (auto) (0.0-0.2) /100WBC PT (10.8-13.0) SEC INR (0.9-1.1) VBG pH (7.32-7.43) VBG pCO2 mmHg VBG pO2 mmHg VBG HCO3 mmol/L VBG O2 Saturation % VBG Base Excess mmol/L Sodium 127 L (135-145) mmol/L Potassium 3.6 (3.3-5.1) mmol/l Chloride 66 L D (96-108) mmol/L Carbon Dioxide 26 (22-29) mmol/L Anion Gap 39 H (12-20) BUN 62 H D (9-16) mg/dL Creatinine 2.36 H (0.5-1.4) mg/dL Estim Creat Clear Calc 32.6 Estimated GFR 28 POC Glucose (60-115) mg/dL Random Glucose 641 H* (60-115) mg/dL Osmolality (281-305) mosm/kg Lactic Acid 3.6 H* (0.5-2.0) mmol/L Lactic Acid Fup @ 2Hr (0.5-2.0) mmol/L Calcium 9.8 D (8.4-10.2) mg/dL Phosphorus 5.2 H (2.7-4.5) mg/dL Magnesium 2.8 H (1.6-2.6) mg/dL Total Bilirubin 1.7 H (0.0-1.0) mg/dL Direct Bilirubin 1.3 H (0.0-0.5) mg/dL AST 23 D (5-37) U/L ALT 27 (0-40) U/L Alkaline Phosphatase 102 (39-117) U/L Total Creatine Kinase 19 L (38-174) U/L Troponin I High Sens 10.6 (<3.5-35.0) ng/L Total Protein 8.7 H (6.5-8.0) g/dL Albumin 4.6 (3.5-5.0) g/dL Urine Color Urine Appearance Urine pH (5.0-8.0) Ur Specific [place] (1.005-1.025) Urine Protein (NEG-TRACE) MG/DL Urine Glucose (UA) (NEG) MG/DL Urine Ketones (NEG) MG/DL Urine Blood (NEG) Urine Nitrite (NEG) Ur Leukocyte Esterase (NEG) Urine RBC (0) /HPF Urine WBC (0-4) /HPF Ur Squamous Epith Cells /LPF Amorphous Sediment /LPF Urine Bacteria /LPF Urine Opiates Screen (Not Detect) Ur Barbiturates Screen (Not Detect) Ur Phencyclidine Scrn (Not Detect) Ur Amphetamines Screen (Not Detect) U Benzodiazepines Scrn (Not Detect) Urine Cocaine Screen (Not Detect) U Marijuana (THC) Screen (Not Detect) Ethyl Alcohol mg/dL Acetone, Qual Moderate H (Negative) COVID-19 (KAYLA) (Negative) COVID-19 Clin Com 09/12/20 09/12/20 09/12/20 Range/Units 17:23 17:23 17:23 WBC (4.8-10.8) X10*3/uL RBC (4.60-5.80) X10*6/uL Hgb (14.0-18.0) g/dl Hct (42-52) % MCV (80-98) fL MCH (27.0-33.0) pg MCHC (31.0-36.0) g/dl RDW (11.0-16.0) % Plt Count (160-400) X10*3/uL MPV (9.4-12.4) fL Immature Gran % (Auto) (0.0-0.4) % Neut % (Auto) (45-73) % Lymph % (Auto) (20-40) % [place] % (Auto) (2-11) % Eos % (Auto) (0-4) % Baso % (Auto) (0-2) % Lymph # (Auto) (1.2-4.9) X10*3/uL [place] # (Auto) (0.1-1.2) X10*3/uL Eos # (Auto) (0.0-0.4) X10*3/uL Baso # (Auto) (0.0-0.2) X10*3/uL Abs Immat Gran (auto) (0.00-0.03) X10*3/uL Absolute Neuts (auto) (2.0-8.3) X10*3/uL Absolute Nucleated RBC (0.0-0.012) X10*3/uL Nucleated RBC % (auto) (0.0-0.2) /100WBC PT (10.8-13.0) SEC INR (0.9-1.1) VBG pH (7.32-7.43) VBG pCO2 mmHg VBG pO2 mmHg VBG HCO3 mmol/L VBG O2 Saturation % VBG Base Excess mmol/L Sodium (135-145) mmol/L Potassium (3.3-5.1) mmol/l Chloride (96-108) mmol/L Carbon Dioxide (22-29) mmol/L Anion Gap (12-20) BUN (9-16) mg/dL Creatinine (0.5-1.4) mg/dL Estim Creat Clear Calc Estimated GFR POC Glucose (60-115) mg/dL Random Glucose (60-115) mg/dL Osmolality 335 H (281-305) mosm/kg Lactic Acid (0.5-2.0) mmol/L Lactic Acid Fup @ 2Hr (0.5-2.0) mmol/L Calcium (8.4-10.2) mg/dL Phosphorus (2.7-4.5) mg/dL Magnesium (1.6-2.6) mg/dL Total Bilirubin (0.0-1.0) mg/dL Direct Bilirubin (0.0-0.5) mg/dL AST (5-37) U/L ALT (0-40) U/L Alkaline Phosphatase (39-117) U/L Total Creatine Kinase (38-174) U/L Troponin I High Sens (<3.5-35.0) ng/L Total Protein (6.5-8.0) g/dL Albumin (3.5-5.0) g/dL Urine Color Urine Appearance Urine pH (5.0-8.0) Ur Specific [place] (1.005-1.025) Urine Protein (NEG-TRACE) MG/DL Urine Glucose (UA) (NEG) MG/DL Urine Ketones (NEG) MG/DL Urine Blood (NEG) Urine Nitrite (NEG) Ur Leukocyte Esterase (NEG) Urine RBC (0) /HPF Urine WBC (0-4) /HPF Ur Squamous Epith Cells /LPF Amorphous Sediment /LPF Urine Bacteria /LPF Urine Opiates Screen (Not Detect) Ur Barbiturates Screen (Not Detect) Ur Phencyclidine Scrn (Not Detect) Ur Amphetamines Screen (Not Detect) U Benzodiazepines Scrn (Not Detect) Urine Cocaine Screen (Not Detect) U Marijuana (THC) Screen (Not Detect) Ethyl Alcohol < 10 mg/dL Acetone, Qual (Negative) COVID-19 (KAYLA) Negative (Negative) COVID-19 Clin Com See Note 09/12/20 09/12/20 09/12/20 Range/Units 19:02 19:02 20:26 WBC (4.8-10.8) X10*3/uL RBC (4.60-5.80) X10*6/uL Hgb (14.0-18.0) g/dl Hct (42-52) % MCV (80-98) fL MCH (27.0-33.0) pg MCHC (31.0-36.0) g/dl RDW (11.0-16.0) % Plt Count (160-400) X10*3/uL MPV (9.4-12.4) fL Immature Gran % (Auto) (0.0-0.4) % Neut % (Auto) (45-73) % Lymph % (Auto) (20-40) % [place] % (Auto) (2-11) % Eos % (Auto) (0-4) % Baso % (Auto) (0-2) % Lymph # (Auto) (1.2-4.9) X10*3/uL [place] # (Auto) (0.1-1.2) X10*3/uL Eos # (Auto) (0.0-0.4) X10*3/uL Baso # (Auto) (0.0-0.2) X10*3/uL Abs Immat Gran (auto) (0.00-0.03) X10*3/uL Absolute Neuts (auto) (2.0-8.3) X10*3/uL Absolute Nucleated RBC (0.0-0.012) X10*3/uL Nucleated RBC % (auto) (0.0-0.2) /100WBC PT (10.8-13.0) SEC INR (0.9-1.1) VBG pH 7.53 H (7.32-7.43) VBG pCO2 24 mmHg VBG pO2 191 mmHg VBG HCO3 21 mmol/L VBG O2 Saturation 99.0 % VBG Base Excess -0.1 mmol/L Sodium (135-145) mmol/L Potassium (3.3-5.1) mmol/l Chloride (96-108) mmol/L Carbon Dioxide (22-29) mmol/L Anion Gap (12-20) BUN (9-16) mg/dL Creatinine (0.5-1.4) mg/dL Estim Creat Clear Calc Estimated GFR POC Glucose (60-115) mg/dL Random Glucose (60-115) mg/dL Osmolality (281-305) mosm/kg Lactic Acid (0.5-2.0) mmol/L Lactic Acid Fup @ 2Hr (0.5-2.0) mmol/L Calcium (8.4-10.2) mg/dL Phosphorus (2.7-4.5) mg/dL Magnesium (1.6-2.6) mg/dL Total Bilirubin (0.0-1.0) mg/dL Direct Bilirubin (0.0-0.5) mg/dL AST (5-37) U/L ALT (0-40) U/L Alkaline Phosphatase (39-117) U/L Total Creatine Kinase (38-174) U/L Troponin I High Sens (<3.5-35.0) ng/L Total Protein (6.5-8.0) g/dL Albumin (3.5-5.0) g/dL Urine Color YELLOW Urine Appearance CLEAR Urine pH 5.5 (5.0-8.0) Ur Specific [place] 1.020 (1.005-1.025) Urine Protein NEG (NEG-TRACE) MG/DL Urine Glucose (UA) >=1000 H (NEG) MG/DL Urine Ketones >=80 (NEG) MG/DL Urine Blood 1+ H (NEG) Urine Nitrite NEG (NEG) Ur Leukocyte Esterase NEG (NEG) Urine RBC 0-2 (0) /HPF Urine WBC 0 (0-4) /HPF Ur Squamous Epith Cells TRACE /LPF Amorphous Sediment 1+ /LPF Urine Bacteria NONE /LPF Urine Opiates Screen Not Detected (Not Detect) Ur Barbiturates Screen Not Detected (Not Detect) Ur Phencyclidine Scrn Not Detected (Not Detect) Ur Amphetamines Screen Not Detected (Not Detect) U Benzodiazepines Scrn Not Detected (Not Detect) Urine Cocaine Screen Not Detected (Not Detect) U Marijuana (THC) Screen Not Detected (Not Detect) Ethyl Alcohol mg/dL Acetone, Qual (Negative) COVID-19 (KAYLA) (Negative) COVID-19 Clin Com 09/12/20 09/12/20 09/12/20 Range/Units 20:26 20:26 20:56 WBC (4.8-10.8) X10*3/uL RBC (4.60-5.80) X10*6/uL Hgb (14.0-18.0) g/dl Hct (42-52) % MCV (80-98) fL MCH (27.0-33.0) pg MCHC (31.0-36.0) g/dl RDW (11.0-16.0) % Plt Count (160-400) X10*3/uL MPV (9.4-12.4) fL Immature Gran % (Auto) (0.0-0.4) % Neut % (Auto) (45-73) % Lymph % (Auto) (20-40) % [place] % (Auto) (2-11) % Eos % (Auto) (0-4) % Baso % (Auto) (0-2) % Lymph # (Auto) (1.2-4.9) X10*3/uL [place] # (Auto) (0.1-1.2) X10*3/uL Eos # (Auto) (0.0-0.4) X10*3/uL Baso # (Auto) (0.0-0.2) X10*3/uL Abs Immat Gran (auto) (0.00-0.03) X10*3/uL Absolute Neuts (auto) (2.0-8.3) X10*3/uL Absolute Nucleated RBC (0.0-0.012) X10*3/uL Nucleated RBC % (auto) (0.0-0.2) /100WBC PT (10.8-13.0) SEC INR (0.9-1.1) VBG pH (7.32-7.43) VBG pCO2 mmHg VBG pO2 mmHg VBG HCO3 mmol/L VBG O2 Saturation % VBG Base Excess mmol/L Sodium (135-145) mmol/L Potassium (3.3-5.1) mmol/l Chloride (96-108) mmol/L Carbon Dioxide (22-29) mmol/L Anion Gap (12-20) BUN (9-16) mg/dL Creatinine (0.5-1.4) mg/dL Estim Creat Clear Calc Estimated GFR POC Glucose 380 H* (60-115) mg/dL Random Glucose (60-115) mg/dL Osmolality (281-305) mosm/kg Lactic Acid (0.5-2.0) mmol/L Lactic Acid Fup @ 2Hr 3.2 H* (0.5-2.0) mmol/L Calcium (8.4-10.2) mg/dL Phosphorus (2.7-4.5) mg/dL Magnesium (1.6-2.6) mg/dL Total Bilirubin (0.0-1.0) mg/dL Direct Bilirubin (0.0-0.5) mg/dL AST (5-37) U/L ALT (0-40) U/L Alkaline Phosphatase (39-117) U/L Total Creatine Kinase (38-174) U/L Troponin I High Sens 8.8 (<3.5-35.0) ng/L Total Protein (6.5-8.0) g/dL Albumin (3.5-5.0) g/dL Urine Color Urine Appearance Urine pH (5.0-8.0) Ur Specific [place] (1.005-1.025) Urine Protein (NEG-TRACE) MG/DL Urine Glucose (UA) (NEG) MG/DL Urine Ketones (NEG) MG/DL Urine Blood (NEG) Urine Nitrite (NEG) Ur Leukocyte Esterase (NEG) Urine RBC (0) /HPF Urine WBC (0-4) /HPF Ur Squamous Epith Cells /LPF Amorphous Sediment /LPF Urine Bacteria /LPF Urine Opiates Screen (Not Detect) Ur Barbiturates Screen (Not Detect) Ur Phencyclidine Scrn (Not Detect) Ur Amphetamines Screen (Not Detect) U Benzodiazepines Scrn (Not Detect) Urine Cocaine Screen (Not Detect) U Marijuana (THC) Screen (Not Detect) Ethyl Alcohol mg/dL Acetone, Qual (Negative) COVID-19 ([facility]) (Negative) COVID-19 Clin Com 09/12/20 Range/Units 21:35 WBC (4.8-10.8) X10*3/uL RBC (4.60-5.80) X10*6/uL Hgb (14.0-18.0) g/dl Hct (42-52) % MCV (80-98) fL MCH (27.0-33.0) pg MCHC (31.0-36.0) g/dl RDW (11.0-16.0) % Plt Count (160-400) X10*3/uL MPV (9.4-12.4) fL Immature Gran % (Auto) (0.0-0.4) % Neut % (Auto) (45-73) % Lymph % (Auto) (20-40) % [place] % (Auto) (2-11) % Eos % (Auto) (0-4) % Baso % (Auto) (0-2) % Lymph # (Auto) (1.2-4.9) X10*3/uL [place] # (Auto) (0.1-1.2) X10*3/uL Eos # (Auto) (0.0-0.4) X10*3/uL Baso # (Auto) (0.0-0.2) X10*3/uL Abs Immat Gran (auto) (0.00-0.03) X10*3/uL Absolute Neuts (auto) (2.0-8.3) X10*3/uL Absolute Nucleated RBC (0.0-0.012) X10*3/uL Nucleated RBC % (auto) (0.0-0.2) /100WBC PT (10.8-13.0) SEC INR (0.9-1.1) VBG pH (7.32-7.43) VBG pCO2 mmHg VBG pO2 mmHg VBG HCO3 mmol/L VBG O2 Saturation % VBG Base Excess mmol/L Sodium 133 L (135-145) mmol/L Potassium 2.4 L* D (3.3-5.1) mmol/l Chloride 84 L D (96-108) mmol/L Carbon Dioxide 25 (22-29) mmol/L Anion Gap 26 H (12-20) BUN 53 H (9-16) mg/dL Creatinine 1.75 H (0.5-1.4) mg/dL Estim Creat Clear Calc 43.9 Estimated GFR 40 POC Glucose (60-115) mg/dL Random Glucose 351 H* (60-115) mg/dL Osmolality (281-305) mosm/kg Lactic Acid (0.5-2.0) mmol/L Lactic Acid Fup @ 2Hr (0.5-2.0) mmol/L Calcium 8.0 L D (8.4-10.2) mg/dL Phosphorus (2.7-4.5) mg/dL Magnesium (1.6-2.6) mg/dL Total Bilirubin (0.0-1.0) mg/dL Direct Bilirubin (0.0-0.5) mg/dL AST (5-37) U/L ALT (0-40) U/L Alkaline Phosphatase (39-117) U/L Total Creatine Kinase (38-174) U/L Troponin I High Sens (<3.5-35.0) ng/L Total Protein (6.5-8.0) g/dL Albumin (3.5-5.0) g/dL Urine Color Urine Appearance Urine pH (5.0-8.0) Ur Specific [place] (1.005-1.025) Urine Protein (NEG-TRACE) MG/DL Urine Glucose (UA) (NEG) MG/DL Urine Ketones (NEG) MG/DL Urine Blood (NEG) Urine Nitrite (NEG) Ur Leukocyte Esterase (NEG) Urine RBC (0) /HPF Urine WBC (0-4) /HPF Ur Squamous Epith Cells /LPF Amorphous Sediment /LPF Urine Bacteria /LPF Urine Opiates Screen (Not Detect) Ur Barbiturates Screen (Not Detect) Ur Phencyclidine Scrn (Not Detect) Ur Amphetamines Screen (Not Detect) U Benzodiazepines Scrn (Not Detect) Urine Cocaine Screen (Not Detect) U Marijuana (THC) Screen (Not Detect) Ethyl Alcohol mg/dL Acetone, Qual (Negative) COVID-19 ([facility]) (Negative) COVID-19 Clin Com <Denisereginald Nina, [employer] - Last Filed: 09/13/20 00:58> Lab Results 09/12/20 09/12/20 09/12/20 Range/Units 17:10 17:23 17:23 WBC 8.2 (4.8-10.8) X10*3/uL RBC 4.21 L (4.60-5.80) X10*6/uL Hgb 13.4 L (14.0-18.0) g/dl Hct 37.1 L (42-52) % MCV 88.1 (80-98) fL MCH 31.8 (27.0-33.0) pg MCHC 36.1 H (31.0-36.0) g/dl RDW 13.9 (11.0-16.0) % Plt Count 61 L D (160-400) X10*3/uL MPV 9.4 (9.4-12.4) fL Immature Gran % (Auto) 0.7 H (0.0-0.4) % Neut % (Auto) 82.3 H (45-73) % Lymph % (Auto) 11.4 L (20-40) % [place] % (Auto) 5.5 (2-11) % Eos % (Auto) 0.1 (0-4) % Baso % (Auto) 0.0 (0-2) % Lymph # (Auto) 0.9 L (1.2-4.9) X10*3/uL [place] # (Auto) 0.5 (0.1-1.2) X10*3/uL Eos # (Auto) 0.0 (0.0-0.4) X10*3/uL Baso # (Auto) 0.0 (0.0-0.2) X10*3/uL Abs Immat Gran (auto) 0.06 H (0.00-0.03) X10*3/uL Absolute Neuts (auto) 6.7 (2.0-8.3) X10*3/uL Absolute Nucleated RBC 0.020 H (0.0-0.012) X10*3/uL Nucleated RBC % (auto) 0.2 (0.0-0.2) /100WBC PT 13.7 H (10.8-13.0) SEC INR 1.2 H (0.9-1.1) VBG pH (7.32-7.43) VBG pCO2 mmHg VBG pO2 mmHg VBG HCO3 mmol/L VBG O2 Saturation % VBG Base Excess mmol/L Sodium (135-145) mmol/L Potassium (3.3-5.1) mmol/l Chloride (96-108) mmol/L Carbon Dioxide (22-29) mmol/L Anion Gap (12-20) BUN (9-16) mg/dL Creatinine (0.5-1.4) mg/dL Estim Creat Clear Calc Estimated GFR POC Glucose 532 H* (60-115) mg/dL Random Glucose (60-115) mg/dL Osmolality (281-305) mosm/kg Lactic Acid (0.5-2.0) mmol/L Lactic Acid Fup @ 2Hr (0.5-2.0) mmol/L Calcium (8.4-10.2) mg/dL Phosphorus (2.7-4.5) mg/dL Magnesium (1.6-2.6) mg/dL Total Bilirubin (0.0-1.0) mg/dL Direct Bilirubin (0.0-0.5) mg/dL AST (5-37) U/L ALT (0-40) U/L Alkaline Phosphatase (39-117) U/L Total Creatine Kinase (38-174) U/L Troponin I High Sens (<3.5-35.0) ng/L Total Protein (6.5-8.0) g/dL Albumin (3.5-5.0) g/dL Urine Color Urine Appearance Urine pH (5.0-8.0) Ur Specific [place] (1.005-1.025) Urine Protein (NEG-TRACE) MG/DL Urine Glucose (UA) (NEG) MG/DL Urine Ketones (NEG) MG/DL Urine Blood (NEG) Urine Nitrite (NEG) Ur Leukocyte Esterase (NEG) Urine RBC (0) /HPF Urine WBC (0-4) /HPF Ur Squamous Epith Cells /LPF Amorphous Sediment /LPF Urine Bacteria /LPF Urine Opiates Screen (Not Detect) Ur Barbiturates Screen (Not Detect) Ur Phencyclidine Scrn (Not Detect) Ur Amphetamines Screen (Not Detect) U Benzodiazepines Scrn (Not Detect) Urine Cocaine Screen (Not Detect) U Marijuana (THC) Screen (Not Detect) Ethyl Alcohol mg/dL Acetone, Qual (Negative) COVID-19 ([facility]) (Negative) COVID-19 Clin Com 09/12/20 09/12/20 09/12/20 Range/Units 17:23 17:23 17:23 WBC (4.8-10.8) X10*3/uL RBC (4.60-5.80) X10*6/uL Hgb (14.0-18.0) g/dl Hct (42-52) % MCV (80-98) fL MCH (27.0-33.0) pg MCHC (31.0-36.0) g/dl RDW (11.0-16.0) % Plt Count (160-400) X10*3/uL MPV (9.4-12.4) fL Immature Gran % (Auto) (0.0-0.4) % Neut % (Auto) (45-73) % Lymph % (Auto) (20-40) % [place] % (Auto) (2-11) % Eos % (Auto) (0-4) % Baso % (Auto) (0-2) % Lymph # (Auto) (1.2-4.9) X10*3/uL [place] # (Auto) (0.1-1.2) X10*3/uL Eos # (Auto) (0.0-0.4) X10*3/uL Baso # (Auto) (0.0-0.2) X10*3/uL Abs Immat Gran (auto) (0.00-0.03) X10*3/uL Absolute Neuts (auto) (2.0-8.3) X10*3/uL Absolute Nucleated RBC (0.0-0.012) X10*3/uL Nucleated RBC % (auto) (0.0-0.2) /100WBC PT (10.8-13.0) SEC INR (0.9-1.1) VBG pH (7.32-7.43) VBG pCO2 mmHg VBG pO2 mmHg VBG HCO3 mmol/L VBG O2 Saturation % VBG Base Excess mmol/L Sodium 127 L (135-145) mmol/L Potassium 3.6 (3.3-5.1) mmol/l Chloride 66 L D (96-108) mmol/L Carbon Dioxide 26 (22-29) mmol/L Anion Gap 39 H (12-20) BUN 62 H D (9-16) mg/dL Creatinine 2.36 H (0.5-1.4) mg/dL Estim Creat Clear Calc 32.6 Estimated GFR 28 POC Glucose (60-115) mg/dL Random Glucose 641 H* (60-115) mg/dL Osmolality (281-305) mosm/kg Lactic Acid 3.6 H* (0.5-2.0) mmol/L Lactic Acid Fup @ 2Hr (0.5-2.0) mmol/L Calcium 9.8 D (8.4-10.2) mg/dL Phosphorus 5.2 H (2.7-4.5) mg/dL Magnesium 2.8 H (1.6-2.6) mg/dL Total Bilirubin 1.7 H (0.0-1.0) mg/dL Direct Bilirubin 1.3 H (0.0-0.5) mg/dL AST 23 D (5-37) U/L ALT 27 (0-40) U/L Alkaline Phosphatase 102 (39-117) U/L Total Creatine Kinase 19 L (38-174) U/L Troponin I High Sens 10.6 (<3.5-35.0) ng/L Total Protein 8.7 H (6.5-8.0) g/dL Albumin 4.6 (3.5-5.0) g/dL Urine Color Urine Appearance Urine pH (5.0-8.0) Ur Specific [place] (1.005-1.025) Urine Protein (NEG-TRACE) MG/DL Urine Glucose (UA) (NEG) MG/DL Urine Ketones (NEG) MG/DL Urine Blood (NEG) Urine Nitrite (NEG) Ur Leukocyte Esterase (NEG) Urine RBC (0) /HPF Urine WBC (0-4) /HPF Ur Squamous Epith Cells /LPF Amorphous Sediment /LPF Urine Bacteria /LPF Urine Opiates Screen (Not Detect) Ur Barbiturates Screen (Not Detect) Ur Phencyclidine Scrn (Not Detect) Ur Amphetamines Screen (Not Detect) U Benzodiazepines Scrn (Not Detect) Urine Cocaine Screen (Not Detect) U Marijuana (THC) Screen (Not Detect) Ethyl Alcohol mg/dL Acetone, Qual Moderate H (Negative) COVID-19 ([facility]) (Negative) COVID-19 Clin Com 09/12/20 09/12/20 09/12/20 Range/Units 17:23 17:23 17:23 WBC (4.8-10.8) X10*3/uL RBC (4.60-5.80) X10*6/uL Hgb (14.0-18.0) g/dl Hct (42-52) % MCV (80-98) fL MCH (27.0-33.0) pg MCHC (31.0-36.0) g/dl RDW (11.0-16.0) % Plt Count (160-400) X10*3/uL MPV (9.4-12.4) fL Immature Gran % (Auto) (0.0-0.4) % Neut % (Auto) (45-73) % Lymph % (Auto) (20-40) % [place] % (Auto) (2-11) % Eos % (Auto) (0-4) % Baso % (Auto) (0-2) % Lymph # (Auto) (1.2-4.9) X10*3/uL [place] # (Auto) (0.1-1.2) X10*3/uL Eos # (Auto) (0.0-0.4) X10*3/uL Baso # (Auto) (0.0-0.2) X10*3/uL Abs Immat Gran (auto) (0.00-0.03) X10*3/uL Absolute Neuts (auto) (2.0-8.3) X10*3/uL Absolute Nucleated RBC (0.0-0.012) X10*3/uL Nucleated RBC % (auto) (0.0-0.2) /100WBC PT (10.8-13.0) SEC INR (0.9-1.1) VBG pH (7.32-7.43) VBG pCO2 mmHg VBG pO2 mmHg VBG HCO3 mmol/L VBG O2 Saturation % VBG Base Excess mmol/L Sodium (135-145) mmol/L Potassium (3.3-5.1) mmol/l Chloride (96-108) mmol/L Carbon Dioxide (22-29) mmol/L Anion Gap (12-20) BUN (9-16) mg/dL Creatinine (0.5-1.4) mg/dL Estim Creat Clear Calc Estimated GFR POC Glucose (60-115) mg/dL Random Glucose (60-115) mg/dL Osmolality 335 H (281-305) mosm/kg Lactic Acid (0.5-2.0) mmol/L Lactic Acid Fup @ 2Hr (0.5-2.0) mmol/L Calcium (8.4-10.2) mg/dL Phosphorus (2.7-4.5) mg/dL Magnesium (1.6-2.6) mg/dL Total Bilirubin (0.0-1.0) mg/dL Direct Bilirubin (0.0-0.5) mg/dL AST (5-37) U/L ALT (0-40) U/L Alkaline Phosphatase (39-117) U/L Total Creatine Kinase (38-174) U/L Troponin I High Sens (<3.5-35.0) ng/L Total Protein (6.5-8.0) g/dL Albumin (3.5-5.0) g/dL Urine Color Urine Appearance Urine pH (5.0-8.0) Ur Specific [place] (1.005-1.025) Urine Protein (NEG-TRACE) MG/DL Urine Glucose (UA) (NEG) MG/DL Urine Ketones (NEG) MG/DL Urine Blood (NEG) Urine Nitrite (NEG) Ur Leukocyte Esterase (NEG) Urine RBC (0) /HPF Urine WBC (0-4) /HPF Ur Squamous Epith Cells /LPF Amorphous Sediment /LPF Urine Bacteria /LPF Urine Opiates Screen (Not Detect) Ur Barbiturates Screen (Not Detect) Ur Phencyclidine Scrn (Not Detect) Ur Amphetamines Screen (Not Detect) U Benzodiazepines Scrn (Not Detect) Urine Cocaine Screen (Not Detect) U Marijuana (THC) Screen (Not Detect) Ethyl Alcohol < 10 mg/dL Acetone, Qual (Negative) COVID-19 ([facility]) Negative (Negative) COVID-19 Clin Com See Note 09/12/20 09/12/20 09/12/20 Range/Units 19:02 19:02 20:26 WBC (4.8-10.8) X10*3/uL RBC (4.60-5.80) X10*6/uL Hgb (14.0-18.0) g/dl Hct (42-52) % MCV (80-98) fL MCH (27.0-33.0) pg MCHC (31.0-36.0) g/dl RDW (11.0-16.0) % Plt Count (160-400) X10*3/uL MPV (9.4-12.4) fL Immature Gran % (Auto) (0.0-0.4) % Neut % (Auto) (45-73) % Lymph % (Auto) (20-40) % [place] % (Auto) (2-11) % Eos % (Auto) (0-4) % Baso % (Auto) (0-2) % Lymph # (Auto) (1.2-4.9) X10*3/uL [place] # (Auto) (0.1-1.2) X10*3/uL Eos # (Auto) (0.0-0.4) X10*3/uL Baso # (Auto) (0.0-0.2) X10*3/uL Abs Immat Gran (auto) (0.00-0.03) X10*3/uL Absolute Neuts (auto) (2.0-8.3) X10*3/uL Absolute Nucleated RBC (0.0-0.012) X10*3/uL Nucleated RBC % (auto) (0.0-0.2) /100WBC PT (10.8-13.0) SEC INR (0.9-1.1) VBG pH 7.53 H (7.32-7.43) VBG pCO2 24 mmHg VBG pO2 191 mmHg VBG HCO3 21 mmol/L VBG O2 Saturation 99.0 % VBG Base Excess -0.1 mmol/L Sodium (135-145) mmol/L Potassium (3.3-5.1) mmol/l Chloride (96-108) mmol/L Carbon Dioxide (22-29) mmol/L Anion Gap (12-20) BUN (9-16) mg/dL Creatinine (0.5-1.4) mg/dL Estim Creat Clear Calc Estimated GFR POC Glucose (60-115) mg/dL Random Glucose (60-115) mg/dL Osmolality (281-305) mosm/kg Lactic Acid (0.5-2.0) mmol/L Lactic Acid Fup @ 2Hr (0.5-2.0) mmol/L Calcium (8.4-10.2) mg/dL Phosphorus (2.7-4.5) mg/dL Magnesium (1.6-2.6) mg/dL Total Bilirubin (0.0-1.0) mg/dL Direct Bilirubin (0.0-0.5) mg/dL AST (5-37) U/L ALT (0-40) U/L Alkaline Phosphatase (39-117) U/L Total Creatine Kinase (38-174) U/L Troponin I High Sens (<3.5-35.0) ng/L Total Protein (6.5-8.0) g/dL Albumin (3.5-5.0) g/dL Urine Color YELLOW Urine Appearance CLEAR Urine pH 5.5 (5.0-8.0) Ur Specific [place] 1.020 (1.005-1.025) Urine Protein NEG (NEG-TRACE) MG/DL Urine Glucose (UA) >=1000 H (NEG) MG/DL Urine Ketones >=80 (NEG) MG/DL Urine Blood 1+ H (NEG) Urine Nitrite NEG (NEG) Ur Leukocyte Esterase NEG (NEG) Urine RBC 0-2 (0) /HPF Urine WBC 0 (0-4) /HPF Ur Squamous Epith Cells TRACE /LPF Amorphous Sediment 1+ /LPF Urine Bacteria NONE /LPF Urine Opiates Screen Not Detected (Not Detect) Ur Barbiturates Screen Not Detected (Not Detect) Ur Phencyclidine Scrn Not Detected (Not Detect) Ur Amphetamines Screen Not Detected (Not Detect) U Benzodiazepines Scrn Not Detected (Not Detect) Urine Cocaine Screen Not Detected (Not Detect) U Marijuana (THC) Screen Not Detected (Not Detect) Ethyl Alcohol mg/dL Acetone, Qual (Negative) COVID-19 ([facility]) (Negative) COVID-19 Clin Com 09/12/20 09/12/20 09/12/20 Range/Units 20:26 20:26 20:56 WBC (4.8-10.8) X10*3/uL RBC (4.60-5.80) X10*6/uL Hgb (14.0-18.0) g/dl Hct (42-52) % MCV (80-98) fL MCH (27.0-33.0) pg MCHC (31.0-36.0) g/dl RDW (11.0-16.0) % Plt Count (160-400) X10*3/uL MPV (9.4-12.4) fL Immature Gran % (Auto) (0.0-0.4) % Neut % (Auto) (45-73) % Lymph % (Auto) (20-40) % [place] % (Auto) (2-11) % Eos % (Auto) (0-4) % Baso % (Auto) (0-2) % Lymph # (Auto) (1.2-4.9) X10*3/uL [place] # (Auto) (0.1-1.2) X10*3/uL Eos # (Auto) (0.0-0.4) X10*3/uL Baso # (Auto) (0.0-0.2) X10*3/uL Abs Immat Gran (auto) (0.00-0.03) X10*3/uL Absolute Neuts (auto) (2.0-8.3) X10*3/uL Absolute Nucleated RBC (0.0-0.012) X10*3/uL Nucleated RBC % (auto) (0.0-0.2) /100WBC PT (10.8-13.0) SEC INR (0.9-1.1) VBG pH (7.32-7.43) VBG pCO2 mmHg VBG pO2 mmHg VBG HCO3 mmol/L VBG O2 Saturation % VBG Base Excess mmol/L Sodium (135-145) mmol/L Potassium (3.3-5.1) mmol/l Chloride (96-108) mmol/L Carbon Dioxide (22-29) mmol/L Anion Gap (12-20) BUN (9-16) mg/dL Creatinine (0.5-1.4) mg/dL Estim Creat Clear Calc Estimated GFR POC Glucose 380 H* (60-115) mg/dL Random Glucose (60-115) mg/dL Osmolality (281-305) mosm/kg Lactic Acid (0.5-2.0) mmol/L Lactic Acid Fup @ 2Hr 3.2 H* (0.5-2.0) mmol/L Calcium (8.4-10.2) mg/dL Phosphorus (2.7-4.5) mg/dL Magnesium (1.6-2.6) mg/dL Total Bilirubin (0.0-1.0) mg/dL Direct Bilirubin (0.0-0.5) mg/dL AST (5-37) U/L ALT (0-40) U/L Alkaline Phosphatase (39-117) U/L Total Creatine Kinase (38-174) U/L Troponin I High Sens 8.8 (<3.5-35.0) ng/L Total Protein (6.5-8.0) g/dL Albumin (3.5-5.0) g/dL Urine Color Urine Appearance Urine pH (5.0-8.0) Ur Specific [place] (1.005-1.025) Urine Protein (NEG-TRACE) MG/DL Urine Glucose (UA) (NEG) MG/DL Urine Ketones (NEG) MG/DL Urine Blood (NEG) Urine Nitrite (NEG) Ur Leukocyte Esterase (NEG) Urine RBC (0) /HPF Urine WBC (0-4) /HPF Ur Squamous Epith Cells /LPF Amorphous Sediment /LPF Urine Bacteria /LPF Urine Opiates Screen (Not Detect) Ur Barbiturates Screen (Not Detect) Ur Phencyclidine Scrn (Not Detect) Ur Amphetamines Screen (Not Detect) U Benzodiazepines Scrn (Not Detect) Urine Cocaine Screen (Not Detect) U Marijuana (THC) Screen (Not Detect) Ethyl Alcohol mg/dL Acetone, Qual (Negative) COVID-19 ([facility]LA) (Negative) COVID-19 Clin Com 09/12/20 Range/Units 21:35 WBC (4.8-10.8) X10*3/uL RBC (4.60-5.80) X10*6/uL Hgb (14.0-18.0) g/dl Hct (42-52) % MCV (80-98) fL MCH (27.0-33.0) pg MCHC (31.0-36.0) g/dl RDW (11.0-16.0) % Plt Count (160-400) X10*3/uL MPV (9.4-12.4) fL Immature Gran % (Auto) (0.0-0.4) % Neut % (Auto) (45-73) % Lymph % (Auto) (20-40) % [place] % (Auto) (2-11) % Eos % (Auto) (0-4) % Baso % (Auto) (0-2) % Lymph # (Auto) (1.2-4.9) X10*3/uL [place] # (Auto) (0.1-1.2) X10*3/uL Eos # (Auto) (0.0-0.4) X10*3/uL Baso # (Auto) (0.0-0.2) X10*3/uL Abs Immat Gran (auto) (0.00-0.03) X10*3/uL Absolute Neuts (auto) (2.0-8.3) X10*3/uL Absolute Nucleated RBC (0.0-0.012) X10*3/uL Nucleated RBC % (auto) (0.0-0.2) /100WBC PT (10.8-13.0) SEC INR (0.9-1.1) VBG pH (7.32-7.43) VBG pCO2 mmHg VBG pO2 mmHg VBG HCO3 mmol/L VBG O2 Saturation % VBG Base Excess mmol/L Sodium 133 L (135-145) mmol/L Potassium 2.4 L* D (3.3-5.1) mmol/l Chloride 84 L D (96-108) mmol/L Carbon Dioxide 25 (22-29) mmol/L Anion Gap 26 H (12-20) BUN 53 H (9-16) mg/dL Creatinine 1.75 H (0.5-1.4) mg/dL Estim Creat Clear Calc 43.9 Estimated GFR 40 POC Glucose (60-115) mg/dL Random Glucose 351 H* (60-115) mg/dL Osmolality (281-305) mosm/kg Lactic Acid (0.5-2.0) mmol/L Lactic Acid Fup @ 2Hr (0.5-2.0) mmol/L Calcium 8.0 L D (8.4-10.2) mg/dL Phosphorus (2.7-4.5) mg/dL Magnesium (1.6-2.6) mg/dL Total Bilirubin (0.0-1.0) mg/dL Direct Bilirubin (0.0-0.5) mg/dL AST (5-37) U/L ALT (0-40) U/L Alkaline Phosphatase (39-117) U/L Total Creatine Kinase (38-174) U/L Troponin I High Sens (<3.5-35.0) ng/L Total Protein (6.5-8.0) g/dL Albumin (3.5-5.0) g/dL Urine Color Urine Appearance Urine pH (5.0-8.0) Ur Specific [place] (1.005-1.025) Urine Protein (NEG-TRACE) MG/DL Urine Glucose (UA) (NEG) MG/DL Urine Ketones (NEG) MG/DL Urine Blood (NEG) Urine Nitrite (NEG) Ur Leukocyte Esterase (NEG) Urine RBC (0) /HPF Urine WBC (0-4) /HPF Ur Squamous Epith Cells /LPF Amorphous Sediment /LPF Urine Bacteria /LPF Urine Opiates Screen (Not Detect) Ur Barbiturates Screen (Not Detect) Ur Phencyclidine Scrn (Not Detect) Ur Amphetamines Screen (Not Detect) U Benzodiazepines Scrn (Not Detect) Urine Cocaine Screen (Not Detect) U Marijuana (THC) Screen (Not Detect) Ethyl Alcohol mg/dL Acetone, Qual (Negative) COVID-19 ([facility]) (Negative) COVID-19 Clin Com <Poli Pizano MD - Last Filed: 09/25/20 07:44> Imaging Data CT scan - head: Attestation: I personally reviewed and interpreted this imaging study as follows: <Denise Nina NP - Last Filed: 09/13/20 00:58> Radiologist's impression: EXAMINATION: CT HEAD WITHOUT CONTRAST CLINICAL INFORMATION: Frequent falls COMPARISON: 11/03/2019 TECHNIQUE: Contiguous axial imaging was performed from the skull base to vertex without intravenous administration of contrast. This CT examination was performed using dose optimization techniques as appropriate, variously including the following: *Automated exposure control *Adjustment of mA and/or kV according to patient size (this includes techniques or standardized protocols for targeted exams where dose is matched to indication/reason for exam; i.e. extremities or head) *Use of iterative reconstruction technique DLP: 110 mGy-cm FINDINGS: There is no evidence of acute intracranial hemorrhage or territorial infarction. No abnormal mass effect or midline shift is seen. James to white matter differentiation is well preserved. No extra-axial fluid collections are identified. The ventricles are normal in size. Some scattered white matter ischemic change The osseous structures and soft tissues are normal. The mastoid air cells and visualized portions of the paranasal sinuses are well aerated. 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 Also seen previously. Not significantly changed from previous exam CT/CT head/brain wo con IMPRESSION: No acute intracranial pathology. 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 Measures approximately a centimeter <Denise Nina NP - Last Filed: 09/13/20 00:58> Chest x-ray: Attestation: I personally reviewed and interpreted this imaging study as follows: <eDnise Nina NP - Last Filed: 09/13/20 00:58> Radiologist's impression: Single view chest does not demonstrate an acute finding. No obvious failure or infiltrate. There is no effusion. The mediastinal contours are comparable to previous. Must consider some element of tortuous versus ectatic aorta. No displaced fracture. There is no pneumothorax. <Denise Nina NP - Last Filed: 09/13/20 00:58> right/left tibia/fibula: Attestation: I personally reviewed and interpreted this imaging study as follows: <Denise Nnia NP - Last Filed: 09/13/20 00:58> Radiologist's impression: 2 views of the left tib-fib do not demonstrate evidence for fracture. 2 views of the right tib-fib do not demonstrate evidence for fracture. Some mild benign-appearing periosteal change mid shaft tibia may represent calcification within the intraosseous ligament. <Denise Nina NP - Last Filed: 09/13/20 00:58> CT scan - abdomen: Attestation: I personally reviewed and interpreted this imaging study as follows: <Denise Nina NP - Last Filed: 09/13/20 00:58> Radiologist's impression: EXAMINATION: CT ABDOMEN AND PELVIS WITHOUT CONTRAST CLINICAL INFORMATION: Abdominal pain COMPARISON: 04/08/2020 TECHNIQUE: Multidetector volumetric imaging was performed from the superior aspect of the liver through the pubic symphysis. Sagittal and coronal reformatted images were obtained on the technologist's workstation. This CT examination was performed using dose optimization techniques as appropriate, variously including the following: *Automated exposure control *Adjustment of mA and/or kV according to patient size (this includes techniques or standardized protocols for targeted exams where dose is matched to indication/reason for exam; i.e. extremities or head) *Use of iterative reconstruction technique DLP: 434 mGy-cm FINDINGS: LUNG BASES: Some reticular nodular change in the right midlung laterally may be a small inflammatory process. Stable small nodularity in the left lung Mild reticular nodular change lateral left upper most cuts. LIVER, GALLBLADDER, AND BILIARY TREE: The liver is normal in size, shape, and attenuation. No focal hepatic lesion or biliary ductal dilatation is present. The gallbladder is unremarkable with no evidence of radiopaque gallstones, gallbladder wall thickening, or obvious pericholecystic inflammatory changes. PANCREAS: Some minimal soft tissue stranding around the pancreas. This is felt to be a mildly improved from previous. Region of the distal body and tail however posterior to the pancreas there is more soft tissue density structure which is emanating cephalad posterior to the stomach. This may be the sequela of pancreatitis with more organized complex collection but a solid lesion cannot be excluded. Increasing calcification in the region of the proximal pancreatic body. SPLEEN: Unremarkable. ADRENAL GLANDS: Unremarkable. KIDNEYS AND URETERS: No hydronephrosis or stone. BLADDER: Unremarkable. GASTROINTESTINAL TRACT: The small and large bowel are unremarkable. The appendix is unremarkable. ABDOMINAL WALL: No significant hernia is appreciated. LYMPH NODES: Normal. VASCULAR: Unremarkable. PELVIC VISCERA: Unremarkable. OSSEOUS STRUCTURES: No acute finding. Degenerative change at L1-L2. CT/CT abdomen pelvis wo con IMPRESSION: Once again soft tissue stranding around the pancreas which may well represent sequela of pancreatitis. While this overall is not significantly changed from previous there is some increasing density in the region of the pancreatic tail extending cephalad posterior to the stomach and this could represent a complex fluid collection and/or organizing inflammatory change. It is soft tissue density therefore solid structure such as a lesion would need to be considered. Consider an MRI here a postcontrast CT to fully evaluate. This area measures 3.2 x 1.9 x 2.7 cm Some mild reticular nodular change in the lungs may be small areas of inflammatory change <Denise Nina NP - Last Filed: 09/13/20 00:58> ECG Data Attestation: I personally reviewed and interpreted this ECG as follows: <Denise Nina NP - Last Filed: 09/13/20 00:58> ECG interpretation date: 09/12/20 <Denise Nina NP - Last Filed: 09/13/20 00:58> ECG interpretation time: 19:12 <Denise Nina NP - Last Filed: 09/13/20 00:58> Interpretation: Normal sinus rhythm with a rate of 85, normal MA, normal QRS, QTC 497. Inverted T-waves in leads 2, V5, V6 <Denise Nina NP - Last Filed: 09/13/20 00:58> Discharge Plan Discharge Clinical Impression: Dehydration, LIANA (acute kidney injury), Acute hypokalemia, Elevated lactic acid level, Acute electrocardiogram changes, Hypochloremia, Weakness Acute pancreatitis Qualifiers: Pancreatitis type: alcohol induced Acute pancreatitis complication: unspecified Qualified Code(s): K85.20 - Alcohol induced acute pancreatitis without necrosis or infection <Denise Nina NP - Last Filed: 09/13/20 00:58> Patient Disposition: Admitted As Inpatient <IVAN Sunshine Last Filed: 09/13/20 00:58> Discharge Date/Time: 09/13/20 07:45 <Denise Nina [employer] - Last Filed: 09/13/20 00:58>
--- NOTE | 2020-09-12 17:11 | XR_ITS ---
Indication: Weakness EXAMINATION: Single view of the chest and bilateral tib-fib studies. Comparison 07/29/2020. Single view chest does not demonstrate an acute finding. No obvious failure or infiltrate. There is no effusion. The mediastinal contours are comparable to previous. Must consider some element of tortuous versus ectatic aorta. No displaced fracture. There is no pneumothorax. 2 views of the left tib-fib do not demonstrate evidence for fracture. 2 views of the right tib-fib do not demonstrate evidence for fracture. Some mild benign-appearing periosteal change mid shaft tibia may represent calcification within the intraosseous ligament. XR/XR chest 1V IMPRESSION: Multiple studies. No acute finding. Smooth appearing periosteal change along the lateral aspect of the mid shaft of the right tibia may be reactive or calcification dystrophic of the intraosseous ligament. Correlation recommended clinically. If further evaluation is warranted consider MR.
--- NOTE | 2020-09-12 17:11 | ECG_ITS ---
Test Reason : WEAKNESS Blood Pressure : / mmHG Vent. Rate : 085 BPM Atrial Rate : 085 BPM P-R Int : 160 ms QRS Dur : 076 ms QT Int : 418 ms P-R-T Axes : 071 023 082 degrees QTc Int : 497 ms Normal sinus rhythm Nonspecific T wave abnormality Prolonged QT Abnormal ECG When compared with ECG of 29-JUL-2020 18:52, Nonspecific T wave abnormality now evident in Inferior leads T wave inversion now evident in Lateral leads Referred By: Denise Nian Electronically Signed By:KYLE MONTEZ
--- NOTE | 2020-09-12 17:12 | XR_ITS ---
Indication: Weakness EXAMINATION: Single view of the chest and bilateral tib-fib studies. Comparison 07/29/2020. Single view chest does not demonstrate an acute finding. No obvious failure or infiltrate. There is no effusion. The mediastinal contours are comparable to previous. Must consider some element of tortuous versus ectatic aorta. No displaced fracture. There is no pneumothorax. 2 views of the left tib-fib do not demonstrate evidence for fracture. 2 views of the right tib-fib do not demonstrate evidence for fracture. Some mild benign-appearing periosteal change mid shaft tibia may represent calcification within the intraosseous ligament. XR/XR tibia fibula LT 2V IMPRESSION: Multiple studies. No acute finding. Smooth appearing periosteal change along the lateral aspect of the mid shaft of the right tibia may be reactive or calcification dystrophic of the intraosseous ligament. Correlation recommended clinically. If further evaluation is warranted consider .
--- NOTE | 2020-09-12 17:12 | XR_ITS ---
Indication: Weakness EXAMINATION: Single view of the chest and bilateral tib-fib studies. Comparison 07/29/2020. Single view chest does not demonstrate an acute finding. No obvious failure or infiltrate. There is no effusion. The mediastinal contours are comparable to previous. Must consider some element of tortuous versus ectatic aorta. No displaced fracture. There is no pneumothorax. 2 views of the left tib-fib do not demonstrate evidence for fracture. 2 views of the right tib-fib do not demonstrate evidence for fracture. Some mild benign-appearing periosteal change mid shaft tibia may represent calcification within the intraosseous ligament. XR/XR tibia fibula RT 2V IMPRESSION: Multiple studies. No acute finding. Smooth appearing periosteal change along the lateral aspect of the mid shaft of the right tibia may be reactive or calcification dystrophic of the intraosseous ligament. Correlation recommended clinically. If further evaluation is warranted consider .
--- NOTE | 2020-09-12 17:13 | CT_ITS ---
EXAMINATION: CT HEAD WITHOUT CONTRAST CLINICAL INFORMATION: Frequent falls COMPARISON: 11/03/2019 TECHNIQUE: Contiguous axial imaging was performed from the skull base to vertex without intravenous administration of contrast. This CT examination was performed using dose optimization techniques as appropriate, variously including the following: *Automated exposure control *Adjustment of mA and/or kV according to patient size (this includes techniques or standardized protocols for targeted exams where dose is matched to indication/reason for exam; i.e. extremities or head) *Use of iterative reconstruction technique DLP: 110 mGy-cm FINDINGS: There is no evidence of acute intracranial hemorrhage or territorial infarction. No abnormal mass effect or midline shift is seen. James to white matter differentiation is well preserved. No extra-axial fluid collections are identified. The ventricles are normal in size. Some scattered white matter ischemic change The osseous structures and soft tissues are normal. The mastoid air cells and visualized portions of the paranasal sinuses are well aerated. 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 Also seen previously. Not significantly changed from previous exam CT/CT head/brain wo con IMPRESSION: No acute intracranial pathology. 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 Measures approximately a centimeter
[2020-09-12 17:16] LABS: Glucose, Whole Blood 532 mg/dL (60-115)
[2020-09-12] MEDS: 0.9 % Sodium Chloride 1,000 ML 999 ML IV (17:26)
[2020-09-12 17:32] LABS: MANUAL DIFF FLAG NO
[2020-09-12 17:36] LABS: Eosinophils Percent Auto 0.1 % (0-4); Hematocrit 37.1 % (42-52); Hemoglobin 13.4 g/dl (14.0-18.0); Imm Gran Abs Auto 0.06 X10*3/uL (0.00-0.03); Imm Gran Pct Auto 0.7 % (0.0-0.4); Lymphocytes Absolute Auto 0.9 X10*3/uL (1.2-4.9); Lymphocytes Percent Auto 11.4 % (20-40); Mean Corpuscular HGB Conc 36.1 g/dl (31.0-36.0); Mean Corpuscular Hemoglobin 31.8 pg (27.0-33.0); Mean Corpuscular Volume 88.1 fL (80-98); Mean Platelet Volume 9.4 fL (9.4-12.4); Monocytes Absolute Auto 0.5 X10*3/uL (0.1-1.2); Monocytes Percent Auto 5.5 % (2-11); NRBC Pct Auto 0.2 /100WBC (0.0-0.2); Neutrophils Absolute Auto 6.7 X10*3/uL (2.0-8.3); Neutrophils Percent Auto 82.3 % (45-73); Red Blood Count 4.21 X10*6/uL (4.60-5.80); Red Cell Distribution Width 13.9 % (11.0-16.0); White Blood Count 8.2 X10*3/uL (4.8-10.8)
[2020-09-12 17:43] LABS: INTERNATIONAL NORM RATIO 1.2 (0.9-1.1); Prothrombin Time 13.7 SEC (10.8-13.0)
--- NOTE | 2020-09-12 17:49 | PC.NURSE ---
pt alert and oriented, but sleepy. pt coming from home due to a well visit call. pt in really poor state, very dehydrated-oral mucosal extremely dry, tong almost leather like in appearance, body covered in old and new scrapes/scratches/skin rears/bruising. pt's lower extremities muddled in appearance, but positive pedal pulses via Doppler. rectal/coccyx area appears excoriated. eyes with crusted yellow substances around them. pt reports all over abd pain/nausea and having multiple falls.according to pt last alcohol drink was yesterday-pt is a chronic drinker
[2020-09-12 17:54] LABS: Ethanol < 10 mg/dL
[2020-09-12 17:57] LABS: COVID-19 Test Negative (Negative); Lactic Acid 3.6 mmol/L (0.5-2.0)
[2020-09-12 17:58] LABS: Platelet Count 61 X10*3/uL (160-400)
[2020-09-12 18:03] LABS: Troponin-I High Sensitivity 10.6 ng/L (<3.5-35.0)
[2020-09-12 18:06] LABS: Alanine Aminotransferase 27 U/L (0-40); Albumin Level 4.6 g/dL (3.5-5.0); Alkaline Phosphatase 102 U/L (39-117); Anion Gap 39 (12-20); Aspartate Amino Transferase 23 U/L (5-37); Bilirubin Direct 1.3 mg/dL (0.0-0.5); Bilirubin Total 1.7 mg/dL (0.0-1.0); Blood Urea Nitrogen 62 mg/dL (9-16); Calcium 9.8 mg/dL (8.4-10.2); Carbon Dioxide 26 mmol/L (22-29); Chloride 66 mmol/L (96-108); Creatinine Clr Calc Pharmacy 32.6; Estimated Glomerular Filt Rate 28; Glucose Random 641 mg/dL (60-115); Magnesium 2.8 mg/dL (1.6-2.6); Potassium 3.6 mmol/l (3.3-5.1); Sodium 127 mmol/L (135-145); Total Protein 8.7 g/dL (6.5-8.0)
[2020-09-12 18:24] LABS: Acetone, serum QL Moderate (Negative)
[2020-09-12 18:45] LABS: Phosphorus 5.2 mg/dL (2.7-4.5)
[2020-09-12 18:47] LABS: Osmolality, Serum 335 mosm/kg (281-305)
[2020-09-12 19:30] LABS: Reflex Lactate? Lactic Acid Added
[2020-09-12] MEDS: SODIUM CHLORIDE 999 ML IV (19:31)
[2020-09-12] MEDS: Insulin Regular, Human 100 UNIT/ML 3 ML VIAL 10 UNIT IVPUSH (19:31)
--- NOTE | 2020-09-12 19:31 | PC.NURSE ---
PT WILL RECIEVE A TOTAL OF 2250 ML OF NORMAL SALINE.
[2020-09-12 19:45] LABS: Glucose Urine UA >=1000 MG/DL (NEG); Leukocyte Esterase Urine NEG (NEG); Nitrite Urine NEG (NEG); PH 5.5 (5.0-8.0); Urine Blood 1+ (NEG); Urine Ketones >=80 MG/DL (NEG); Urine Protein NEG (NEG-TRACE)
[2020-09-12 19:46] LABS: Appearance Urine CLEAR; Color Urine YELLOW
[2020-09-12 20:01] LABS: Amorphous Sediment Urine 1+ /LPF; RBC Urine 0-2 /HPF (0); Squamous Epithelial Cell Urine TRACE /LPF; WBC Urine 0 /HPF (0-4)
[2020-09-12 20:07] LABS: Amphetamine Screen Urine Not Detected (Not Detect); Barbiturates, Urine Not Detected (Not Detect); Benzodiazepines Screen Urine Not Detected (Not Detect); Cannabinoid Screen Urine Not Detected (Not Detect); Cocaine Screen Urine Not Detected (Not Detect); Opiate Screen Urine Not Detected (Not Detect); Phencyclidine Screen Urine Not Detected (Not Detect)
[2020-09-12 20:38] LABS: Base Excess VBG -0.1 mmol/L; HCO3 VBG 21 mmol/L; PCO2 VBG 24 mmHg; PO2 VBG 191 mmHg; pH VBG 7.53 (7.32-7.43)
--- NOTE | 2020-09-12 20:55 | PC.NURSE ---
STEP DAUGHTER CALLED, UNDER THE IMPRESSION THAT PT WILL REMAIN IN HOSPITAL UNDER A SECTION 12. PT WAS SECTION 12 FOR TRANSPORT ONLY. PROVIDER EXPLAINED THAT PT IS NOT ABLE TO LEAVE UNTIL HE IS AWAKE AND ALERT AND HAS GOOD JUDGEMENT. PT'S APARTMENT IS FILLED WITH ALCOHOL BOTTLES, BUGS AND FECAL MATTER-[employer]. STEP DAUGHTER HAS BEEN CLEANING APARTMENT. SHE WANTS TO HAVE HIM SECTION [address],FOR ETOH, WILL GO TO COURT TMRW MORNING. STEP DAUGHTER ON PHONE NOW WITH CASE MANAGEMENT.
[2020-09-12 21:00] LABS: Glucose, Whole Blood 380 mg/dL (60-115)
[2020-09-12 21:03] LABS: ~Lactic Acid-LAB USE ONLY 3.2 mmol/L (0.5-2.0)
[2020-09-12 21:08] LABS: Troponin-I High Sensitivity 8.8 ng/L (<3.5-35.0)
--- NOTE | 2020-09-12 21:33 | MHC.CARE ---
CARE Team receives consult, indicating that pt is here for alcohol use among other medical concerns, and his step daughter, Gaby ([phone]), is planning on pursuing a section 35. Case management asks that CARE Team reach out to cosme espinoza to provide guidance on obtaining the section 35. CARE Team provides education on how to work with official court reporter, and the process that would follow, should a warrant be issued. Cosme espinoza identifies that she would like for pt to be picked up on warrant from the [facility] and CARE Team does not provide guarantee of this, as if pt is d/c on the weekend or at night this would not be possible. It would be helpful for [facility] floor team to work with Tia on making a plan for d/c. Cosme espinoza does not want pt to return home, as she is trying to clean his apartment, so she would like to work out a plan for pt to be picked up from [facility]. Gaby plans on staying in touch with nursing daily in order to get a timeline of when pt may be medically cleared for discharge. She will call the court in the morning. CARE Team phone number is provided and Tia is encouraged to reach out for support as needed.
--- NOTE | 2020-09-12 21:34 | MHC.CM.ED ---
RENE received a call from patients step daughter, Gaby Perez ([phone]), who was very concerned about pt. [facility] pt has alcohol abuse problem and has been drinking heavily since her mother 6 years ago. Has HX of bipolar, diabetes and substance abuse per Tia. States she found him at home and he would not get out of bed. House was covered in filth, with bugs and feces, and nips bottles everywhere. She has been cleaning the apartment. [facility] police will file with health department. Cannot file elder at risk, as pt is only 60 years of age. Gaby wants to file a section 35 to try and get him some help. Gaby tells CM pt has a therapist and psychiatrist and PCP is Dr. White. [facility] pt had VNA services, but refused to open the door, so they discharged him. Relayed above conversation with Susi DIAZ. This pt is well known to her and the CARE team has been consulted. Spoke with Marilee from the Care Team. She tells CM that pt is well known to her and that section 35 may be a very good plan. Will call Gaby to discuss section 35. Contact information given. Pt will be followed by CARE team at this time. Repeat telephone call to Gaby to let her know that CARE team is following pt. Given contact information ([phone]).
[2020-09-12 22:14] LABS: Blood Urea Nitrogen 53 mg/dL (9-16); Creatinine Clr Calc Pharmacy 43.9; Estimated Glomerular Filt Rate 40; Glucose Random 351 mg/dL (60-115)
[2020-09-12 22:26] LABS: Anion Gap 26 (12-20); Carbon Dioxide 25 mmol/L (22-29); Chloride 84 mmol/L (96-108); Potassium 2.4 mmol/l (3.3-5.1); Sodium 133 mmol/L (135-145)
[2020-09-12 22:32] LABS: Reflex Lactate? 2 Y
[2020-09-12] MEDS: Potassium Chloride/H20 10 MEQ/100 ML PIGGYBACK 100 MEQ IV ×2 (22:52→23:58)
[2020-09-12] MEDS: Potassium Chloride Packet 20 MEQ PACKET 60 MEQ PO (22:53)
--- NOTE | 2020-09-12 23:13 | CT_ITS ---
EXAMINATION: CT ABDOMEN AND PELVIS WITHOUT CONTRAST CLINICAL INFORMATION: Abdominal pain COMPARISON: 04/08/2020 TECHNIQUE: Multidetector volumetric imaging was performed from the superior aspect of the liver through the pubic symphysis. Sagittal and coronal reformatted images were obtained on the technologist's workstation. This CT examination was performed using dose optimization techniques as appropriate, variously including the following: *Automated exposure control *Adjustment of mA and/or kV according to patient size (this includes techniques or standardized protocols for targeted exams where dose is matched to indication/reason for exam; i.e. extremities or head) *Use of iterative reconstruction technique DLP: 434 mGy-cm FINDINGS: LUNG BASES: Some reticular nodular change in the right midlung laterally may be a small inflammatory process. Stable small nodularity in the left lung Mild reticular nodular change lateral left upper most cuts. LIVER, GALLBLADDER, AND BILIARY TREE: The liver is normal in size, shape, and attenuation. No focal hepatic lesion or biliary ductal dilatation is present. The gallbladder is unremarkable with no evidence of radiopaque gallstones, gallbladder wall thickening, or obvious pericholecystic inflammatory changes. PANCREAS: Some minimal soft tissue stranding around the pancreas. This is felt to be a mildly improved from previous. Region of the distal body and tail however posterior to the pancreas there is more soft tissue density structure which is emanating cephalad posterior to the stomach. This may be the sequela of pancreatitis with more organized complex collection but a solid lesion cannot be excluded. Increasing calcification in the region of the proximal pancreatic body. SPLEEN: Unremarkable. ADRENAL GLANDS: Unremarkable. KIDNEYS AND URETERS: No hydronephrosis or stone. BLADDER: Unremarkable. GASTROINTESTINAL TRACT: The small and large bowel are unremarkable. The appendix is unremarkable. ABDOMINAL WALL: No significant hernia is appreciated. LYMPH NODES: Normal. VASCULAR: Unremarkable. PELVIC VISCERA: Unremarkable. OSSEOUS STRUCTURES: No acute finding. Degenerative change at L1-L2. CT/CT abdomen pelvis wo con IMPRESSION: Once again soft tissue stranding around the pancreas which may well represent sequela of pancreatitis. While this overall is not significantly changed from previous there is some increasing density in the region of the pancreatic tail extending cephalad posterior to the stomach and this could represent a complex fluid collection and/or organizing inflammatory change. It is soft tissue density therefore solid structure such as a lesion would need to be considered. Consider an MRI here a postcontrast CT to fully evaluate. This area measures 3.2 x 1.9 x 2.7 cm Some mild reticular nodular change in the lungs may be small areas of inflammatory change
--- NOTE | 2020-09-12 23:31 | P.HPHOSP_ITS ---
History of Present Illness Date of Service: 09/12/20 Chief Complaint: weakness, lethargy This is a 60-year-old male with past medical history of alcohol abuse, diabetes, pancreatitis, HLD who presents to the hospital after being found by EMS on the floor. Patient is lethargic answers questions appropriately within not of his head but not much history can be obtained from him. It appears that his niece was worried about him because she had not heard from him in few days, she called EMS for a well check, EMS went patient's home, found him on the floor conscious but lethargic, they also found his house in complete disarray with feces everywhere, bugs and rode in's around the house and therefore patient was brought in. When asked about review of system, patient does report abdominal pain and nausea and vomiting, as well as diarrhea, he otherwise shakes his head no to questions including headache, chest pain, shortness of breath, cough, urinary symptoms, lower extremity edema. He does say that he has been feeling sick although does not elaborate. When asked about his drinking, he reports that he has been drinking 2 weeks. On arrival To the ED hemodynamically stable with no significant abnormal vitals Labs are significant for normal WBC count of 6.6, hemoglobin of 10.2, hematocrit 28.1, PT of 13.7, INR of 1.2, pH of 7.53, CO2 of 24, glucose on arrival found to be 641, corrected sodium 136, potassium 3.6 with dropped to 2.4 after receiving insulin for the hyperglycemia, he had an anion gap of 39, creatinine of 2.36 with a BUN of 62 which improved to 1.75/53 with IV fluids, , lactic acid of 3.6, UA that is positive for glucose, acetone positive, UDS negative and alcohol level negative. Patient received 10 units of IV insulin, with improvement of his glucose Multiple images including chest x-ray, x-ray of the tibia fibula and head CT were all negative for any acute changes, abdominal CT ordered by me showed soft tissue stranding around the pancreas which may be represent sequelae of pancreatitis. There is some increasing density in the region of the pancreatic tail which could represent a complex fluid collection and or organizing inflammatory change. Past medical history: ADHD, depression, diabetes, HLD, hypotestosteronism, history of pancreatitis Surgical history: Unknown Family history: Significant for cancer Social history: Comes from home, lives alone, history of alcohol abuse although patient reports that he has not been drinking for 2 weeks, distant history of IV drug use, Review of Systems Review of Systems: Yes all other systems are reviewed and are negative Constitutional: Constitutional: Denies headache(s) and Reports weakness ENT: Denies dizziness and Denies headache(s) Musculoskeletal: Musculoskeletal: Denies numbness and Denies tingling Neurologic: Reports system reviewed and no additional complaints, except as documented, Reports Abnormal speech present, Denies dizziness, Denies headache(s), Denies numbness, Denies tingling and Reports weakness PMFSH Medical History Attention deficit disorder Degenerative disc disease, cervical Depression Diabetes mellitus Dyslipidemia History of substance abuse Hypotestosteronism Osteoarthritis of right hand Pancreatitis Family History Father Cancer Mother Cancer Diabetes Surgical History History of surgery Social History Alcohol intake: current Alcohol intake frequency: 0-2 drinks per day Alcohol type: hard liquor Smoking Status: Current every day smoker Use of substances other than those prescribed or required for medical reasons: No Advance Directives: No Advance Directives Information Provided: No Current occupational status: unemployed Current occupation: Right Handed Meds Allergies Allergy/AdvReac Type Severity Reaction Status Date / Time acamprosate Allergy Unknown redness Verified 06/11/20 08:50 and itching Docusate Sodium Allergy Unknown Migraines Verified 07/16/20 14:05 Home Medications Medication Instructions Recorded Confirmed Type acamprosate 333 mg tablet,delayed 666 mg PO TID 06/11/20 09/12/20 History release amitriptyline 25 mg tablet 25 mg PO BEDTIME 06/11/20 09/12/20 History dexmethylphenidate 10 mg PO DAILY 09/12/20 09/12/20 History insulin glargine [Basaglar KwikPen 0 unit SUBCUT QPM 09/12/20 History U-100 Insulin] Physical Exam Vital Signs and Narrative: Vital Signs: Last Vital Signs Temp 96.8 F 09/12/20 21:55 Pulse 787 H 09/12/20 22:55 Resp 15 09/12/20 22:55 BP 95/67 09/12/20 22:55 Pulse Ox 100 09/12/20 22:55 Body Mass Index 25.0 Const: General: cooperative, ill appearing, lethargic and poor hygiene (significant poor hygiene) Orientation/consciousness: oriented to person, oriented to place and lethargic Eyes: General: appearance normal, both eyes and all related structures Neck: Yes no meningeal signs Resp: Effort & Inspection: normal respiratory effort and able to speak in complete sentences Cardio: Rate: regular rate Rhythm: regular rhythm GI: Other: tender abdomen diffusely, worst in the epigastric region, Palp ation (GI): Soft to palpation Auscultation: normal bowel sounds Neuro: General: oriented to person, oriented to place and no meningeal signs Speech: Abnormal speech present Extrem: General: Yes normal to inspection and Yes no pedal edema Results Labs CBC and Chem 7: 09/13/20 05:27 09/12/20 21:35 Labs: Laboratory Results - last 24 hr 09/12/20 09/12/20 09/12/20 17:10 17:23 17:23 MCV 88.1 MCH 31.8 MCHC 36.1 H RDW 13.9 Plt Count 61 L D MPV 9.4 Immature Gran % (Auto) 0.7 H Neut % (Auto) 82.3 H Lymph % (Auto) 11.4 L Burke % (Auto) 5.5 Eos % (Auto) 0.1 Baso % (Auto) 0.0 Lymph # (Auto) 0.9 L Burke # (Auto) 0.5 Eos # (Auto) 0.0 Baso # (Auto) 0.0 Abs Immat Gran (auto) 0.06 H Absolute Neuts (auto) 6.7 Absolute Nucleated RBC 0.020 H Nucleated RBC % (auto) 0.2 PT 13.7 H INR 1.2 H VBG pH VBG pCO2 VBG pO2 VBG HCO3 VBG O2 Saturation VBG Base Excess Anion Gap Estim Creat Clear Calc Estimated GFR POC Glucose 532 H* Random Glucose Osmolality Lactic Acid Lactic Acid Fup @ 2Hr Calcium Phosphorus Magnesium Total Bilirubin Direct Bilirubin AST ALT Alkaline Phosphatase Total Creatine Kinase Troponin I High Sens Total Protein Albumin Urine Color Urine Appearance Urine pH Ur Specific [place] Urine Protein Urine Glucose (UA) Urine Ketones Urine Blood Urine Nitrite Ur Leukocyte Esterase Urine RBC Urine WBC Ur Squamous Epith Cells Amorphous Sediment Urine Bacteria Urine Opiates Screen Ur Barbiturates Screen Ur Phencyclidine Scrn Ur Amphetamines Screen U Benzodiazepines Scrn Urine Cocaine Screen U Marijuana (THC) Screen Ethyl Alcohol Acetone, Qual COVID-19 (KAYLA) COVID-19 Clin Com 09/12/20 09/12/20 09/12/20 17:23 17:23 17:23 MCV MCH MCHC RDW Plt Count MPV Immature Gran % (Auto) Neut % (Auto) Lymph % (Auto) Burke % (Auto) Eos % (Auto) Baso % (Auto) Lymph # (Auto) Burke # (Auto) Eos # (Auto) Baso # (Auto) Abs Immat Gran (auto) Absolute Neuts (auto) Absolute Nucleated RBC Nucleated RBC % (auto) PT INR VBG pH VBG pCO2 VBG pO2 VBG HCO3 VBG O2 Saturation VBG Base Excess Anion Gap 39 H Estim Creat Clear Calc 32.6 Estimated GFR 28 POC Glucose Random Glucose 641 H* Osmolality Lactic Acid 3.6 H* Lactic Acid Fup @ 2Hr Calcium 9.8 D Phosphorus 5.2 H Magnesium 2.8 H Total Bilirubin 1.7 H Direct Bilirubin 1.3 H AST 23 D ALT 27 Alkaline Phosphatase 102 Total Creatine Kinase 19 L Troponin I High Sens 10.6 Total Protein 8.7 H Albumin 4.6 Urine Color Urine Appearance Urine pH Ur Specific [place] Urine Protein Urine Glucose (UA) Urine Ketones Urine Blood Urine Nitrite Ur Leukocyte Esterase Urine RBC Urine WBC Ur Squamous Epith Cells Amorphous Sediment Urine Bacteria Urine Opiates Screen Ur Barbiturates Screen Ur Phencyclidine Scrn Ur Amphetamines Screen U Benzodiazepines Scrn Urine Cocaine Screen U Marijuana (THC) Screen Ethyl Alcohol Acetone, Qual Moderate H COVID-19 (KAYLA) COVID-19 Clin Com 09/12/20 09/12/20 09/12/20 17:23 17:23 17:23 MCV MCH MCHC RDW Plt Count MPV Immature Gran % (Auto) Neut % (Auto) Lymph % (Auto) Burke % (Auto) Eos % (Auto) Baso % (Auto) Lymph # (Auto) Burke # (Auto) Eos # (Auto) Baso # (Auto) Abs Immat Gran (auto) Absolute Neuts (auto) Absolute Nucleated RBC Nucleated RBC % (auto) PT INR VBG pH VBG pCO2 VBG pO2 VBG HCO3 VBG O2 Saturation VBG Base Excess Anion Gap Estim Creat Clear Calc Estimated GFR POC Glucose Random Glucose Osmolality 335 H Lactic Acid Lactic Acid Fup @ 2Hr Calcium Phosphorus Magnesium Total Bilirubin Direct Bilirubin AST ALT Alkaline Phosphatase Total Creatine Kinase Troponin I High Sens Total Protein Albumin Urine Color Urine Appearance Urine pH Ur Specific [place] Urine Protein Urine Glucose (UA) Urine Ketones Urine Blood Urine Nitrite Ur Leukocyte Esterase Urine RBC Urine WBC Ur Squamous Epith Cells Amorphous Sediment Urine Bacteria Urine Opiates Screen Ur Barbiturates Screen Ur Phencyclidine Scrn Ur Amphetamines Screen U Benzodiazepines Scrn Urine Cocaine Screen U Marijuana (THC) Screen Ethyl Alcohol < 10 Acetone, Qual COVID-19 (KAYLA) Negative COVID-Octapoly See Note 09/12/20 09/12/20 09/12/20 19:02 19:02 20:26 MCV MCH MCHC RDW Plt Count MPV Immature Gran % (Auto) Neut % (Auto) Lymph % (Auto) Burke % (Auto) Eos % (Auto) Baso % (Auto) Lymph # (Auto) Burke # (Auto) Eos # (Auto) Baso # (Auto) Abs Immat Gran (auto) Absolute Neuts (auto) Absolute Nucleated RBC Nucleated RBC % (auto) PT INR VBG pH 7.53 H VBG pCO2 24 VBG pO2 191 VBG HCO3 21 VBG O2 Saturation 99.0 VBG Base Excess -0.1 Anion Gap Estim Creat Clear Calc Estimated GFR POC Glucose Random Glucose Osmolality Lactic Acid Lactic Acid Fup @ 2Hr Calcium Phosphorus Magnesium Total Bilirubin Direct Bilirubin AST ALT Alkaline Phosphatase Total Creatine Kinase Troponin I High Sens Total Protein Albumin Urine Color YELLOW Urine Appearance CLEAR Urine pH 5.5 Ur Specific [place] 1.020 Urine Protein NEG Urine Glucose (UA) >=1000 H Urine Ketones >=80 Urine Blood 1+ H Urine Nitrite NEG Ur Leukocyte Esterase NEG Urine RBC 0-2 Urine WBC 0 Ur Squamous Epith Cells TRACE Amorphous Sediment 1+ Urine Bacteria NONE Urine Opiates Screen Not Detected Ur Barbiturates Screen Not Detected Ur Phencyclidine Scrn Not Detected Ur Amphetamines Screen Not Detected U Benzodiazepines Scrn Not Detected Urine Cocaine Screen Not Detected U Marijuana (THC) Screen Not Detected Ethyl Alcohol Acetone, Qual COVID-19 (KAYLA) COVID-Octapoly 09/12/20 09/12/20 09/12/20 20:26 20:26 20:56 MCV MCH MCHC RDW Plt Count MPV Immature Gran % (Auto) Neut % (Auto) Lymph % (Auto) [place] % (Auto) Eos % (Auto) Baso % (Auto) Lymph # (Auto) [place] # (Auto) Eos # (Auto) Baso # (Auto) Abs Immat Gran (auto) Absolute Neuts (auto) Absolute Nucleated RBC Nucleated RBC % (auto) PT INR VBG pH VBG pCO2 VBG pO2 VBG HCO3 VBG O2 Saturation VBG Base Excess Anion Gap Estim Creat Clear Calc Estimated GFR POC Glucose 380 H* Random Glucose Osmolality Lactic Acid Lactic Acid Fup @ 2Hr 3.2 H* Calcium Phosphorus Magnesium Total Bilirubin Direct Bilirubin AST ALT Alkaline Phosphatase Total Creatine Kinase Troponin I High Sens 8.8 Total Protein Albumin Urine Color Urine Appearance Urine pH Ur Specific [place] Urine Protein Urine Glucose (UA) Urine Ketones Urine Blood Urine Nitrite Ur Leukocyte Esterase Urine RBC Urine WBC Ur Squamous Epith Cells Amorphous Sediment Urine Bacteria Urine Opiates Screen Ur Barbiturates Screen Ur Phencyclidine Scrn Ur Amphetamines Screen U Benzodiazepines Scrn Urine Cocaine Screen U Marijuana (THC) Screen Ethyl Alcohol Acetone, Qual COVID-19 (KAYLA) COVID-19 Mofang Com 09/12/20 21:35 MCV MCH MCHC RDW Plt Count MPV Immature Gran % (Auto) Neut % (Auto) Lymph % (Auto) [place] % (Auto) Eos % (Auto) Baso % (Auto) Lymph # (Auto) [place] # (Auto) Eos # (Auto) Baso # (Auto) Abs Immat Gran (auto) Absolute Neuts (auto) Absolute Nucleated RBC Nucleated RBC % (auto) PT INR VBG pH VBG pCO2 VBG pO2 VBG HCO3 VBG O2 Saturation VBG Base Excess Anion Gap 26 H Estim Creat Clear Calc 43.9 Estimated GFR 40 POC Glucose Random Glucose 351 H* Osmolality Lactic Acid Lactic Acid Fup @ 2Hr Calcium 8.0 L D Phosphorus Magnesium Total Bilirubin Direct Bilirubin AST ALT Alkaline Phosphatase Total Creatine Kinase Troponin I High Sens Total Protein Albumin Urine Color Urine Appearance Urine pH Ur Specific [place] Urine Protein Urine Glucose (UA) Urine Ketones Urine Blood Urine Nitrite Ur Leukocyte Esterase Urine RBC Urine WBC Ur Squamous Epith Cells Amorphous Sediment Urine Bacteria Urine Opiates Screen Ur Barbiturates Screen Ur Phencyclidine Scrn Ur Amphetamines Screen U Benzodiazepines Scrn Urine Cocaine Screen U Marijuana (THC) Screen Ethyl Alcohol Acetone, Qual COVID-19 (KAYLA) COVID-19 Clin Com Imaging Radiologist's Impressions: Impressions Chest X-Ray 09/12/20 17:11 IMPRESSION: Multiple studies. No acute finding. Smooth appearing periosteal change along the lateral aspect of the mid shaft of the right tibia may be reactive or calcification dystrophic of the intraosseous ligament. Correlation recommended clinically. If further evaluation is warranted consider MR. Tibia/Fibula X-Ray 09/12/20 17:12 IMPRESSION: Multiple studies. No acute finding. Smooth appearing periosteal change along the lateral aspect of the mid shaft of the right tibia may be reactive or calcification dystrophic of the intraosseous ligament. Correlation recommended clinically. If further evaluation is warranted consider MR. Tibia/Fibula X-Ray 09/12/20 17:12 IMPRESSION: Multiple studies. No acute finding. Smooth appearing periosteal change along the lateral aspect of the mid shaft of the right tibia may be reactive or calcification dystrophic of the intraosseous ligament. Correlation recommended clinically. If further evaluation is warranted consider MR. Head CT 09/12/20 17:13 IMPRESSION: No acute intracranial pathology. 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 Measures approximately a centimeter Assessment and Plan (1) LIANA (acute kidney injury): Status: Acute (2) Acute pancreatitis: Qualifiers: Pancreatitis type: alcohol induced Acute pancreatitis complication: unspecified Qualified Code(s): K85.20 - Alcohol induced acute pancreatitis without necrosis or infection Status: Acute (3) Weakness: Status: Acute (4) Dehydration: Status: Acute (5) Acute hypokalemia: Status: Acute (6) Elevated lactic acid level: Status: Acute (7) Diabetes mellitus: Status: Acute This is a 60-year-old male with past medical history of alcohol abuse, diabetes who presents to the hospital after being found in his home on the floor, in a very for condition. Found to have multiple abnormal findings on arrival to the ED as below # acute pancreatitis with possible complications - CT of the abdomen as above showing acute stranding around the pancreatitis as well as possible complex fluid collection - cause most likely alcohol use as patient has history of alcoholism - no leukocytosis, afebrile, no evidence of infection at this time - will start patient on aggressive IV fluids - given possible fluid collection will start him on IV antibiotics - blood cultures - will make NPO - GI consult # LIANA - most likely secondary to dehydration as well as pancreatitis - improve slightly in the ED with IV fluids - will continue maintenance fluids with LR 200 cc an hour - follow BMP # hyperkalemia - secondary to hyperglycemia as well as diarrhea as well as poor oral intake - repleted in the ED - will follow BMP and repeat repletion if necessary # lactic acidosis - most likely secondary to dehydration as well as acute pancreatitis - continue IV fluids - follow lactic acid # weakness/lethargy - secondary to acute infection, poor oral intake, history of alcohol abuse as well as mental health - no evidence of encephalopathy - will start him on IV fluids, treat the infection - follow mental status # history of alcohol abuse - reports last drink was 2 weeks ago - no evidence of withdrawal at this time - will start him on thiamine, folic acid supplement IV - CIWA to monitor for withdrawal symptoms DVT prophylaxis: Heparin subq
[2020-09-12] MEDS: Insulin Lispro 100 UNIT/ML 3 ML VIAL 10 UNIT SUBCUT (23:44)
[2020-09-12] MEDS: Heparin Sodium,Porcine 5,000 UNIT/ML VIAL 5000 UNIT SUBCUT (23:45)
[2020-09-12] MEDS: Lactated Ringers 1,000 ML 100 ML IVCONT (23:46)
[2020-09-12 23:53] LABS: Glucose, Whole Blood 303 mg/dL (60-115)
[2020-09-13] VITALS (7 sets, daily range): BP systolic 90–108; BP diastolic 59–75; PULSE 63–82; RESP 12–20; TEMP 36.4–36.8; O2SAT 97–100
[2020-09-13 00:38] LABS: ~Lactic Acid-LAB USE ONLY 1.8 mmol/L (0.5-2.0)
[2020-09-13] MEDS: Piperacillin Sodium/Tazobactam 3.375 GM in 0.9 % Sodium Chloride 50 ML IV (00:55)
--- NOTE | 2020-09-13 02:26 | PC.NURSE ---
PT WAKES EASILY TO TOUCH, RESPIRATORY EFFORT NON LABORED AND REGULAR. ROOM AIR SPO2 HAS BEEN HIGH 90'S, RR 16. PT HAS MULTIPLE HEALING SCABS FROM ? SKIN TEARS.
[2020-09-13 05:21] LABS: Glucose, Whole Blood 190 mg/dL (60-115)
[2020-09-13 05:32] LABS: Basophils Percent Auto 0.2 % (0-2); Eosinophils Percent Auto 0.6 % (0-4); Hematocrit 28.1 % (42-52); Hemoglobin 10.2 g/dl (14.0-18.0); Imm Gran Abs Auto 0.05 X10*3/uL (0.00-0.03); Imm Gran Pct Auto 0.8 % (0.0-0.4); Lymphocytes Percent Auto 15.5 % (20-40); MANUAL DIFF FLAG NO; Mean Corpuscular HGB Conc 36.3 g/dl (31.0-36.0); Mean Corpuscular Hemoglobin 32.2 pg (27.0-33.0); Mean Corpuscular Volume 88.6 fL (80-98); Mean Platelet Volume 8.7 fL (9.4-12.4); Monocytes Absolute Auto 0.4 X10*3/uL (0.1-1.2); Monocytes Percent Auto 6.2 % (2-11); Neutrophils Absolute Auto 5.1 X10*3/uL (2.0-8.3); Neutrophils Percent Auto 76.7 % (45-73); Red Blood Count 3.17 X10*6/uL (4.60-5.80); Red Cell Distribution Width 13.8 % (11.0-16.0); White Blood Count 6.6 X10*3/uL (4.8-10.8)
[2020-09-13 05:34] LABS: Platelet Count 27 X10*3/uL (160-400)
[2020-09-13] MEDS: Lactated Ringers 1,000 ML 200 ML IVCONT ×4 (05:47→20:12)
[2020-09-13 06:10] LABS: Carbon Dioxide 30 mmol/L (22-29)
[2020-09-13 06:11] LABS: Creatinine Clr Calc Pharmacy 49.9; Estimated Glomerular Filt Rate 46
[2020-09-13 06:12] LABS: Blood Urea Nitrogen 44 mg/dL (9-16)
[2020-09-13 06:38] LABS: Anion Gap 21 (12-20); Calcium 8.2 mg/dL (8.4-10.2); Chloride 88 mmol/L (96-108); Glucose Random 173 mg/dL (60-115); Potassium 2.8 mmol/l (3.3-5.1); Sodium 135 mmol/L (135-145)
[2020-09-13] MEDS: 0.9 % Sodium Chloride Flush 3 ML SYRINGE IVFLUSH (07:15)
[2020-09-13] MEDS: cefTRIAXone sodium 1 GM in 0.9 % Sodium Chloride 50 ML IV (07:15)
[2020-09-13] MEDS: metroNIDAZOLE/NS 500 MG/100 ML PIGGYBACK 100 MG IV ×3 (07:28→20:51)
[2020-09-13 07:57] LABS: Glucose, Whole Blood 198 mg/dL (60-115)
[2020-09-13] MEDS: Insulin Lispro 100 UNIT/ML 3 ML VIAL SUBCUT ×4 (08:31→20:51)
[2020-09-13] MEDS: Thiamine HCL 200 MG/2 ML VIAL 100 MG IVPUSH (09:25)
[2020-09-13] MEDS: Potassium Chloride ER 20 MEQ TAB.ER.PRT 40 MEQ PO (09:26)
[2020-09-13 10:03] LABS: Alanine Aminotransferase 17 U/L (0-40); Albumin Level 3.4 g/dL (3.5-5.0); Alkaline Phosphatase 70 U/L (39-117); Aspartate Amino Transferase 19 U/L (5-37); Bilirubin Direct 0.9 mg/dL (0.0-0.5); Bilirubin Total 1.2 mg/dL (0.0-1.0); Total Protein 6.3 g/dL (6.5-8.0)
--- NOTE | 2020-09-13 10:10 | P.PNIM_ITS ---
Subjective Subjective Date of Service: 09/13/20 Interval History: abd pain Cardiovascular Cardiovascular: Reports no additional cardiovascular complaints Genitourinary Genitourinary: Reports no additional male genitourinary complaints Physical Exam Vital Signs: Vital Signs: Last Vital Signs Temp 97.8 F 09/13/20 07:53 Pulse 71 09/13/20 07:53 Resp 20 09/13/20 07:53 BP 107/73 09/13/20 07:53 Pulse Ox 100 09/13/20 07:53 Body Mass Index 25.0 General: lethargic, oX3, no acute distress Resp: CTA bilateral CVS: S1,S2,RRR GI: soft, diffusely tender, non distended Neuro: motor grossly intact Psych: appropriate affect Objective Data Current Medications Generic Name Dose Route Start Last Admin Trade Name Freq PRN Reason Stop Dose Admin Acetaminophen 650 mg 09/12/20 23:13 Acetaminophen 325 Mg Tablet PO Q6H PRN Pain, Mild (Pain Scale 1-3) Docusate Sodium 100 mg 09/12/20 23:13 Docusate Sodium 100 Mg Capsule PO DAILY PRN Constipation Folic Acid 1 mg 09/13/20 09:00 09/13/20 09:26 Folic Acid 1 Mg/0.2 Ml Syringe IVPUSH 1 mg DAILY JOSE Administration Gabapentin 400 mg 09/13/20 09:00 09/13/20 08:27 Gabapentin 400 Mg Capsule PO Not Given TID JOSE Heparin Sodium (Porcine) 5,000 unit 09/12/20 23:15 09/12/20 23:45 Heparin Sodium,Porcine 5,000 Unit/Ml Vial SUBCUT 5,000 unit Q12H JOSE Administration Lactated Ringer's 1,000 mls @ 200 mls/hr 09/12/20 23:15 09/13/20 09:07 Lr IVCONT Not Given .Q5H JOSE Ceftriaxone Sodium 1 gm/ 50 mls @ 100 mls/hr 09/13/20 06:00 09/13/20 07:57 Sodium Chloride IV Infused Q24H JOSE Infusion Metronidazole 500 mg in 100 mls @ 100 mls/hr 09/13/20 06:00 09/13/20 09:04 Flagyl IV Infused Q8H JOSE Infusion Insulin Human Lispro 0 unit 09/13/20 08:15 09/13/20 08:31 Insulin Lispro 100 Unit/Ml 3 Ml Vial SUBCUT 2 unit Q6H JOSE Administration Protocol Ondansetron HCl 4 mg 09/12/20 23:13 Ondansetron Hcl 4 Mg/2 Ml Vial IVPUSH Q8H PRN Nausea and Vomiting Pharmacy Consult 1 each 09/12/20 17:11 Consult Rx Perform Med Rec MISCELLANE ONCE PRN Consult order Sodium Chloride 3 ml 09/13/20 00:00 09/13/20 07:56 0.9 % Sodium Chloride Flush 3 Ml Syringe IVFLUSH Not Given QSHIFT JOSE Thiamine HCl 100 mg 09/13/20 09:00 09/13/20 09:25 Thiamine Hcl 200 Mg/2 Ml Vial IVPUSH 100 mg DAILY JOSE Administration Labs CBC & Chem 7: 09/13/20 05:27 09/13/20 05:27 Assessment and Plan (1) LIANA (acute kidney injury): Status: Acute (2) Acute pancreatitis: Status: Acute (3) Weakness: Status: Acute (4) Dehydration: Status: Acute (5) Acute hypokalemia: Status: Acute (6) Elevated lactic acid level: Status: Acute (7) Diabetes mellitus: Status: Acute Assessment and Plan: This is a 60-year-old male with past medical history of alcohol abuse, diabetes who presented to the hospital after being found in his home on the floor compl aining of abd pain acute alcoholic pancreatitis npo, ivf advance diet as tolerated lesion posterior to pancreatic, will consider mri with contrast if creatining improves, if not will pursue other testing gi eval LIANA ivf, monitor hypokalemia, hypomagnesemia replace and monitor etoh dependence monitor ciwa thrombocytopenia ?etoh related monitor stop heparin
[2020-09-13 10:16] LABS: Lipase 1079 U/L (8-78)
--- NOTE | 2020-09-13 10:28 | MHC.CM.PN ---
spoke with pts brother who plans on filing a sect 35..care team to see pt prior to dc
[2020-09-13 11:34] LABS: Glucose, Whole Blood 202 mg/dL (60-115)
--- NOTE | 2020-09-13 11:56 | MHC.CM.PN ---
recalled brother fransisco and explined that a hcp mwas completed and being mailed to him we discussed sect 35 ,he reports that he calld [facility] this morning and got instructions in the sect 35 filing process he plans to move forward with the process he will keep us updated
--- NOTE | 2020-09-13 13:59 | MHC.RECOVSUP ---
Recovery Support note: Patient is a 60 year old Israeli speaking male who presented to [facility] ED via EMS after his family called for a wellness check. Patient was medically admitted due to LIANA and pancreatitis. Patient is known to this scientific technical writer from previous consultations. This scientific technical writer and the recovery support nurse attempted to meet with patient in to discuss his alcohol use and treatment options. Patient reports he is not feeling well at all and was minimally engaged in consultation. Attributes his alcohol use to his depression. Recovery Support Team will follow up with patient on Wednesday when he is feeling better to determine if patient is interested in discussing his substance use and recovery supports further.
[2020-09-13] MEDS: Gabapentin 400 MG CAPSULE PO ×2 (14:42→20:51)
[2020-09-13 16:23] LABS: Glucose, Whole Blood 212 mg/dL (60-115)
--- NOTE | 2020-09-13 16:23 | CONS_ITS ---
DATE OF SERVICE: 09/13/2020 REFERRING PHYSICIAN: Nayely Shepard REASON FOR CONSULTATION: Abdominal pain and abnormal CT scan of the pancreas. HISTORY OF THE PRESENT ILLNESS: The patient is a 60-year-old man who was admitted to the hospital after presenting to the emergency room yesterday after being found at home with change in mental status and very unkempt condition. The patient has a history of alcohol abuse and states he last drank 2 days ago. He does not quantify how much he drinks. He was evaluated in the emergency department and was hyperglycemic. He had complaints of abdominal pain and CT scanning was obtained. This is reviewed and is interpreted as showing changes consistent with pancreatitis. There were also abnormalities involving the tail of pancreas, which are reviewed with Dr. Miller today and she indicates could be fluid. The patient was not given IV contrast due to elevated BUN and creatinine. He has had pancreatitis in the past. A lipase was obtained on laboratory studies from this morning and was elevated at 1079, up from 126 on July 29. PAST MEDICAL HISTORY: 1. Alcohol abuse. 2. Pancreatitis. 3. Diabetes. 4. Hyperlipidemia. 5. ADHD. 6. Depression. CURRENT MEDICATIONS: Current medication list is reviewed in the chart. ALLERGIES: ACAMPROSATE AND DOCUSATE. FAMILY HISTORY: This is reviewed in the electronic medical record. SOCIAL HISTORY: Alcohol abuse. REVIEW OF SYSTEMS: This is not obtainable. PHYSICAL EXAMINATION: GENERAL: Shows an elderly, unkempt male, appearing older than stated age. VITAL SIGNS: Reviewed in the electronic medical record and are stable. SKIN: Shows multiple lesions. HEENT: Shows no scleral icterus. NECK: Without lymphadenopathy or thyromegaly. LUNGS: Clear. HEART: Shows regular rate and rhythm. S1, S2. No murmur. ABDOMEN: Soft. Bowel sounds are present. There is mild diffuse tenderness to palpation. There is no guarding or rebound. EXTREMITIES: Without edema. LABORATORY DATA: Show a white blood cell count of 6.6; hematocrit 28 following IV hydration; platelet count 27,000, down from 61 on admission. IMPRESSION: Pancreatitis with abnormal CT scan. This appears consistent with alcohol-induced pancreatitis. I advised the patient not to drink alcohol. The abnormalities on his CT scan could be consistent with fluid related to an episode of acute pancreatitis. I would recommend obtaining a CT with contrast or MRI with contrast when his renal function allows. I would continue to keep him n.p.o. and treat him with pain medications and IV fluids as needed and as his pancreatitis improves, his diet can be gradually advanced. Thanks for asking me to see him. I will follow him in the hospital with you. MD DIEGO Prieto/BAYRON / [id number]
[2020-09-13 20:17] LABS: Glucose, Whole Blood 219 mg/dL (60-115)
[2020-09-14] MEDS: Lactated Ringers 1,000 ML 200 ML IVCONT (01:18)
[2020-09-14 03:26] VITALS: BP 102/60; PULSE 63; RESP 16; TEMP 36.1; O2SAT 97
[2020-09-14] MEDS: cefTRIAXone sodium 1 GM in 0.9 % Sodium Chloride 50 ML IV (04:58)
[2020-09-14] MEDS: metroNIDAZOLE/NS 500 MG/100 ML PIGGYBACK 100 MG IV (04:58)
[2020-09-14 06:19] LABS: MANUAL DIFF FLAG NO
[2020-09-14 06:27] LABS: Basophils Percent Auto 0.2 % (0-2); Eosinophils Absolute Auto 0.1 X10*3/uL (0.0-0.4); Eosinophils Percent Auto 2.4 % (0-4); Hematocrit 27.9 % (42-52); Hemoglobin 9.6 g/dl (14.0-18.0); Imm Gran Abs Auto 0.02 X10*3/uL (0.00-0.03); Imm Gran Pct Auto 0.4 % (0.0-0.4); Lymphocytes Absolute Auto 1.2 X10*3/uL (1.2-4.9); Lymphocytes Percent Auto 21.6 % (20-40); Mean Corpuscular HGB Conc 34.4 g/dl (31.0-36.0); Mean Corpuscular Hemoglobin 31.2 pg (27.0-33.0); Mean Corpuscular Volume 90.6 fL (80-98); Mean Platelet Volume 9.6 fL (9.4-12.4); Monocytes Absolute Auto 0.3 X10*3/uL (0.1-1.2); Monocytes Percent Auto 5.1 % (2-11); Neutrophils Absolute Auto 3.9 X10*3/uL (2.0-8.3); Neutrophils Percent Auto 70.3 % (45-73); Platelet Count 23 X10*3/uL (160-400); Red Blood Count 3.08 X10*6/uL (4.60-5.80); Red Cell Distribution Width 13.8 % (11.0-16.0); White Blood Count 5.5 X10*3/uL (4.8-10.8)
[2020-09-14 06:32] LABS: Fibrinogen 375 MG/DL (259-690); INTERNATIONAL NORM RATIO 1.1 (0.9-1.1); Prothrombin Time 13.6 SEC (10.8-13.0)
[2020-09-14 07:02] LABS: Alanine Aminotransferase 12 U/L (0-40); Alkaline Phosphatase 62 U/L (39-117); Anion Gap 20 (12-20); Aspartate Amino Transferase 20 U/L (5-37); Bilirubin Direct 0.7 mg/dL (0.0-0.5); Bilirubin Total 0.8 mg/dL (0.0-1.0); Blood Urea Nitrogen 25 mg/dL (9-16); Calcium 8.2 mg/dL (8.4-10.2); Carbon Dioxide 28 mmol/L (22-29); Chloride 96 mmol/L (96-108); Creatinine Clr Calc Pharmacy 65.7; Estimated Glomerular Filt Rate > 60; Glucose Fasting 129 mg/dL (60-99); Potassium 2.9 mmol/l (3.3-5.1); Sodium 141 mmol/L (135-145); Total Protein 5.7 g/dL (6.5-8.0)
[2020-09-14 07:32] VITALS: BP 109/63; PULSE 62; RESP 17; TEMP 36.2; O2SAT 98
[2020-09-14 08:27] LABS: Glucose, Whole Blood 156 mg/dL (60-115)
--- NOTE | 2020-09-14 08:42 | PC.NURSE ---
pt has no IV access, also NPO . insulin held
--- NOTE | 2020-09-14 10:10 | HO.PM.IMPN ---
Subjective Subjective Date of Service: 09/14/20 Interval History: ready for liquids Cardiovascular Cardiovascular: Reports no additional cardiovascular complaints Respiratory Respiratory: Reports no additional respiratory complaints Physical Exam Vital Signs: Vital Signs: Last Vital Signs Temp 97.1 F 09/14/20 07:32 Pulse 62 09/14/20 07:32 Resp 17 09/14/20 07:32 BP 109/63 09/14/20 07:32 Pulse Ox 98 09/14/20 07:32 Body Mass Index 25.0 General: lethargic, dishevled Resp: CTA bilateral CVS: S1,S2,RRR GI: soft, tender, non distended Neuro: motor grossly intact Psych: appropriate affect Objective Data Current Medications Generic Name Dose Route Start Last Admin Trade Name Freq PRN Reason Stop Dose Admin Acetaminophen 650 mg 09/12/20 23:13 Acetaminophen 325 Mg Tablet PO Q6H PRN Pain, Mild (Pain Scale 1-3) Docusate Sodium 100 mg 09/12/20 23:13 Docusate Sodium 100 Mg Capsule PO DAILY PRN Constipation Folic Acid 1 mg 09/13/20 09:00 09/13/20 09:26 Folic Acid 1 Mg/0.2 Ml Syringe IVPUSH 1 mg DAILY JOSE Administration Gabapentin 400 mg 09/13/20 09:00 09/13/20 20:51 Gabapentin 400 Mg Capsule PO 400 mg TID JOSE Administration Insulin Human Lispro 0 unit 09/13/20 16:30 09/14/20 08:42 Insulin Lispro 100 Unit/Ml 3 Ml Vial SUBCUT Not Given QIDACHS [facility] Protocol Ondansetron HCl 4 mg 09/12/20 23:13 Ondansetron Hcl 4 Mg/2 Ml Vial IVPUSH Q8H PRN Nausea and Vomiting Pharmacy Consult 1 each 09/12/20 17:11 Consult Rx Perform Med Rec MISCELLANE ONCE PRN Consult order Potassium Chloride 40 meq 09/14/20 10:09 Potassium Chloride Packet 20 Meq Packet PO 09/14/20 10:10 ONCE ONE Sodium Chloride 3 ml 09/13/20 00:00 09/14/20 09:42 0.9 % Sodium Chloride Flush 3 Ml Syringe IVFLUSH Not Given QSHIFT JOSE Thiamine HCl 100 mg 09/13/20 09:00 09/13/20 09:25 Thiamine Hcl 200 Mg/2 Ml Vial IVPUSH 100 mg DAILY JOSE Administration Labs CBC & Chem 7: 09/14/20 05:05 09/14/20 05:05 Microbiology Microbiology Results: Microbiology 09/12/20 18:08 Blood - Venous Blood Culture - Preliminary No growth after 24 hours. 09/12/20 17:23 Blood - Venous Blood Culture - Preliminary No growth after 24 hours. Assessment and Plan (1) LIANA (acute kidney injury): Status: Acute (2) Acute pancreatitis: Status: Acute (3) Weakness: Status: Acute (4) Dehydration: Status: Acute (5) Acute hypokalemia: Status: Acute (6) Elevated lactic acid level: Status: Acute (7) Diabetes mellitus: Status: Acute Assessment and Plan: This is a 60-year-old male with past medical history of alcohol abuse, diabetes who presented to the hospital after being found in his home on the floor complaining of abd pain acute alcoholic pancreatitis advance to clears advance diet as tolerated lesion posterior to pancreatic, will consider mri with contrast if creatinine continues to improve, if not will pursue other testing gi appreciated LIANA improving hypokalemia, hypomagnesemia replace and monitor etoh dependence monitor ciwa thrombocytopenia ?etoh related monitor hodling heparin
[2020-09-14] MEDS: Potassium Chloride Packet 20 MEQ PACKET 40 MEQ PO (11:09)
--- NOTE | 2020-09-14 11:30 | PC.NURSE ---
pt has been intyermittently awake, semi oriented to self, place but not time. He has had several inc episodes of loose stool and has been cleaned and changed. Anesthesia put IV in pt's left neck. Pt has not removed the IV. He refused to drink the PO potassium.
[2020-09-14 11:53] LABS: Glucose, Whole Blood 200 mg/dL (60-115)
[2020-09-14 11:54] VITALS: BP 99/66; PULSE 65; RESP 20; TEMP 36.5; O2SAT 100
--- NOTE | 2020-09-14 11:59 | P.PNGI_ITS ---
Subjective Subjective Date of Service: 09/14/20 Interval History: resting comfortably denies abd pain Physical Exam Vital Signs: Vital Signs: Last Vital Signs Temp 97.1 F 09/14/20 07:32 Pulse 62 09/14/20 07:32 Resp 17 09/14/20 07:32 BP 109/63 09/14/20 07:32 Pulse Ox 98 09/14/20 07:32 Body Mass Index 25.0 Const: Other: unkempt Chest: Chest palpation & inspection: normal inspection of the chest Cardio: Rate: regular rate Heart sounds: S1 normal heart sound present and S2 normal heart sound present GI: Other: abdomen without focal tenderness Extrem: Other: no edema Objective Data Labs CBC & Chem 7: 09/14/20 05:05 09/14/20 05:05 Progress Note: A&P Assessment and plan (1) Acute pancreatitis: Status: Acute Assessment and Plan: renal function improving starting clear liquids advised patient not to drink alcohol. Time Spent With Patient Time: Total time spent is greater than 50% in coordination of care (as doc umented) at patient's floor/unit and/or counseling patient: Time with patient: less than 15 minutes
[2020-09-14] MEDS: Lactated Ringers 1,000 ML 150 ML IVCONT (13:35)
--- NOTE | 2020-09-14 14:46 | PC.NURSE ---
pt has had difficulty swallowing pills. He does not swallow trhem, spits them out ioir coughs until the pill is expelled from mouth. Pt has been able to tolerate sips of liquid and Jello. He also has been speaking, swearing at times. Pt has dryness to bilateral eyes, also has redness surrounding eyelids. He states eyes are painful. Eyes were cleaned with soft gauze and sterile water. MD locke.
[2020-09-14 15:16] VITALS: BP 99/69; PULSE 71; RESP 18; TEMP 36.4; O2SAT 94
--- NOTE | 2020-09-14 15:17 | PC.NURSE ---
pt removed his IV. aware. Pt able to tolerate PO fluids.
--- NOTE | 2020-09-14 16:15 | PC.NURSE ---
pt has had multiple episodes of loose stool incontinence. He has been reporting itching to buttocks and has been scratching an area to buttocks until it is red and open. Pt has been redirected several times and continues to occasionally scratch the area. Applied liberal amount of barrier cream to make scratching difficult. Pt resting at this time.
[2020-09-14 16:26] LABS: Glucose, Whole Blood 299 mg/dL (60-115)
[2020-09-14] MEDS: Insulin Lispro 100 UNIT/ML 3 ML VIAL SUBCUT ×2 (16:44→21:14)
[2020-09-14 19:54] VITALS: BP 90/60; PULSE 83; RESP 18; TEMP 36.4; O2SAT 100
[2020-09-14 20:27] LABS: Glucose, Whole Blood 299 mg/dL (60-115)
[2020-09-14] MEDS: Gabapentin 400 MG CAPSULE PO (21:14)
[2020-09-14 23:37] VITALS: BP 93/63; PULSE 79; RESP 16; TEMP 36.4; O2SAT 97
[2020-09-15] MEDS: Lactated Ringers 1,000 ML 150 ML IVCONT ×5 (01:05→22:56)
[2020-09-15 03:11] VITALS: BP 103/62; PULSE 72; RESP 16; TEMP 36.7; O2SAT 97
[2020-09-15 07:20] VITALS: BP 104/68; PULSE 76; RESP 16; TEMP 36.7; O2SAT 96
[2020-09-15] MEDS: 0.9 % Sodium Chloride Flush 3 ML SYRINGE IVFLUSH ×2 (08:58→15:25)
[2020-09-15] MEDS: Gabapentin 400 MG CAPSULE PO ×3 (08:58→21:59)
[2020-09-15 09:01] LABS: Glucose, Whole Blood 213 mg/dL (60-115)
[2020-09-15] MEDS: Insulin Lispro 100 UNIT/ML 3 ML VIAL SUBCUT ×4 (09:12→22:00)
--- NOTE | 2020-09-15 10:06 | HO.PM.IMPN ---
Subjective Subjective Date of Service: 09/15/20 Interval History: lousy, but ready to try solids Cardiovascular Cardiovascular: Reports no additional cardiovascular complaints Gastrointestinal Gastrointestinal: Reports no additional gastrointestinal complaints Physical Exam Vital Signs: Vital Signs: Last Vital Signs Temp 98.1 F 09/15/20 07:20 Pulse 76 09/15/20 07:20 Resp 16 09/15/20 07:20 BP 104/68 09/15/20 07:20 Pulse Ox 96 09/15/20 07:20 Body Mass Index 25.0 General: lethargic, dishevled Resp: CTA bilateral CVS: S1,S2,RRR GI: soft, tender, non distended Neuro: motor grossly intact Psych: appropriate affect Objective Data Current Medications Generic Name Dose Route Start Last Admin Trade Name Lolis PRN Reason Stop Dose Admin Acetaminophen 650 mg 09/12/20 23:13 Acetaminophen 325 Mg Tablet PO Q6H PRN Pain, Mild (Pain Scale 1-3) Docusate Sodium 100 mg 09/12/20 23:13 Docusate Sodium 100 Mg Capsule PO DAILY PRN Constipation Folic Acid 1 mg 09/13/20 09:00 09/15/20 08:58 Folic Acid 1 Mg/0.2 Ml Syringe IVPUSH Not Given DAILY JOSE Gabapentin 400 mg 09/13/20 09:00 09/15/20 08:58 Gabapentin 400 Mg Capsule PO 400 mg TID JOSE Administration Lactated Ringer's 1,000 mls @ 150 mls/hr 09/14/20 12:45 09/15/20 08:58 Lr IVCONT 150 mls/hr .Q6H40M JOSE Administration Insulin Human Lispro 0 unit 09/13/20 16:30 09/15/20 09:12 Insulin Lispro 100 Unit/Ml 3 Ml Vial SUBCUT 4 unit QIDACHS JOSE Administration Protocol Ondansetron HCl 4 mg 09/12/20 23:13 Ondansetron Hcl 4 Mg/2 Ml Vial IVPUSH Q8H PRN Nausea and Vomiting Pharmacy Consult 1 each 09/12/20 17:11 Consult Rx Perform Med Rec MISCELLANE ONCE PRN Consult order Sodium Chloride 3 ml 09/13/20 00:00 09/15/20 08:58 0.9 % Sodium Chloride Flush 3 Ml Syringe IVFLUSH 3 ml QSHIFT JOSE Administration Thiamine HCl 100 mg 09/13/20 09:00 09/14/20 10:49 Thiamine Hcl 200 Mg/2 Ml Vial IVPUSH Not Given DAILY JOSE Labs CBC & Chem 7: 09/14/20 05:05 09/14/20 05:05 Microbiology Microbiology Results: Microbiology 09/12/20 18:08 Blood - Venous Blood Culture - Preliminary No growth after 48 hours. 09/12/20 17:23 Blood - Venous Blood Culture - Preliminary No growth after 48 hours. Assessment and Plan (1) LIANA (acute kidney injury): Status: Acute (2) Acute pancreatitis: Status: Acute Assessment and Plan: This is a 60-year-old male with past medical history of alcohol abuse, diabetes who presented to the hospital after being found in his home on the floor complaining of abd pain acute alcoholic pancreatitis advance to low fat diet lesion posterior to pancreatic, will check mri gi appreciated LIANA improving hypokalemia, hypomagnesemia replace and monitor etoh dependence monitor ciwa thrombocytopenia ?etoh related monitor hodling heparin
[2020-09-15] MEDS: Thiamine HCL 200 MG/2 ML VIAL 100 MG IVPUSH (10:34)
[2020-09-15 12:00] VITALS: BP 90/60; PULSE 64; RESP 17; TEMP 36.6; O2SAT 100
[2020-09-15 12:18] LABS: Glucose, Whole Blood 305 mg/dL (60-115)
--- NOTE | 2020-09-15 12:34 | P.PNGI_ITS ---
Subjective Subjective Date of Service: 09/15/20 Interval History: states all my problems are in my head tolerating clear liquids denies abd pain Physical Exam Vital Signs: Vital Signs: Last Vital Signs Temp 98.1 F 09/15/20 07:20 Pulse 76 09/15/20 07:20 Resp 16 09/15/20 07:20 BP 104/68 09/15/20 07:20 Pulse Ox 96 09/15/20 07:20 Body Mass Index 25.0 Const: Other: alert GI: Other: soft, nontender, bowel sounds present Extrem: Other: without edema Objective Data Labs CBC & Chem 7: 09/14/20 05:05 09/14/20 05:05 Progress Note: A&P Assessment and plan (1) Acute pancreatitis: Status: Acute Assessment and Plan: advance diet as tolerated mri pending Time Spent With Patient Time: Total time spent is greater than 50% in coordination of care (as docume nted) at patient's floor/unit and/or counseling patient: Time with patient: less than 15 minutes
[2020-09-15 15:04] LABS: Basophils Percent Auto 0.3 % (0-2); MANUAL DIFF FLAG SCAN; Monocytes Absolute Auto 0.2 X10*3/uL (0.1-1.2); NRBC Pct Auto 0.5 /100WBC (0.0-0.2); PLT CLUMP 1; SCAN SMEAR FLAG 1
[2020-09-15 15:05] LABS: Eosinophils Absolute Auto 0.1 X10*3/uL (0.0-0.4); Eosinophils Percent Auto 2.7 % (0-4); Hematocrit 29.9 % (42-52); Hemoglobin 10.3 g/dl (14.0-18.0); Imm Gran Abs Auto 0.03 X10*3/uL (0.00-0.03); Imm Gran Pct Auto 0.8 % (0.0-0.4); Lymphocytes Absolute Auto 0.9 X10*3/uL (1.2-4.9); Lymphocytes Percent Auto 23.9 % (20-40); Mean Corpuscular HGB Conc 34.4 g/dl (31.0-36.0); Mean Corpuscular Hemoglobin 31.6 pg (27.0-33.0); Mean Corpuscular Volume 91.7 fL (80-98); Mean Platelet Volume 9.9 fL (9.4-12.4); Monocytes Percent Auto 4.8 % (2-11); Neutrophils Absolute Auto 2.5 X10*3/uL (2.0-8.3); Neutrophils Percent Auto 67.5 % (45-73); Red Blood Count 3.26 X10*6/uL (4.60-5.80); Red Cell Distribution Width 14.1 % (11.0-16.0); White Blood Count 3.7 X10*3/uL (4.8-10.8)
[2020-09-15 15:09] LABS: Platelet Count 29 X10*3/uL (160-400)
[2020-09-15 15:37] LABS: SLIDE REVIEW VERIFIED
[2020-09-15 15:59] VITALS: BP 100/60; PULSE 53; RESP 18; TEMP 36.6; O2SAT 99
[2020-09-15 16:01] LABS: Anion Gap 17 (12-20); Blood Urea Nitrogen 14 mg/dL (9-16); Calcium 8.4 mg/dL (8.4-10.2); Carbon Dioxide 30 mmol/L (22-29); Chloride 95 mmol/L (96-108); Creatinine Clr Calc Pharmacy 62.5; Estimated Glomerular Filt Rate > 60; Glucose Fasting 371 mg/dL (60-99); Magnesium 1.4 mg/dL (1.6-2.6); Potassium 3.2 mmol/l (3.3-5.1); Sodium 139 mmol/L (135-145)
[2020-09-15 17:05] LABS: Glucose, Whole Blood 303 mg/dL (60-115)
[2020-09-15] MEDS: Magnesium Oxide 400 MG TABLET 800 MG PO (17:21)
[2020-09-15 19:47] VITALS: BP 166/69; PULSE 93; RESP 21; TEMP 36.6; O2SAT 96
[2020-09-15 21:06] LABS: Glucose, Whole Blood 256 mg/dL (60-115)
[2020-09-16] VITALS (11 sets, daily range): BP systolic 92–128; BP diastolic 55–71; PULSE 86–107; RESP 18–20; TEMP 35.9–37.6; O2SAT 90–100
--- NOTE | 2020-09-16 | CT_ITS ---
EXAMINATION: CT ABDOMEN AND PELVIS WITHOUT AND WITH CONTRAST CLINICAL INFORMATION: Lesion posterior to pancreas COMPARISON: Directly compared to prior studies including most recent 09/12/2020 study TECHNIQUE: Multidetector volumetric imaging was performed of the abdomen and pelvis before and after the IV administration of 85 mL of Omnipaque 350 intravenous contrast. Sagittal and coronal reformatted images were obtained on the technologist's workstation. This CT examination was performed using dose optimization techniques as appropriate, variously including the following: *Automated exposure control *Adjustment of mA and/or kV according to patient size (this includes techniques or standardized protocols for targeted exams where dose is matched to indication/reason for exam; i.e. extremities or head) *Use of iterative reconstruction technique DLP: 1303 mGy-cm FINDINGS: LUNG BASES: The visualized lung bases are unremarkable. PERITONEAL SPACE: Small volume of abdominal ascites is seen but this is increased from the recent 09/12/2020 study. LIVER, GALLBLADDER, AND BILIARY TREE: The liver is normal in size, shape, and attenuation. No focal hepatic lesion or biliary ductal dilatation is present. The gallbladder is distended. Subtle densities along the dependent mid wall of the gallbladder may represent tiny gallstones or gallbladder polyps. Small pericholecystic fluid of uncertain significance in the setting of mild ascites. PANCREAS: Coarsened calcifications in the pancreatic neck again noted. I do not appreciate any pancreatic ductal dilatation. Mild peripancreatic inflammatory changes more so in the region the pancreatic tail with a small amount of ill-defined fluid along the lesser sac extending towards the splenic hilum. I do not appreciate a discrete wall surrounding the entirety of this ill-defined fluid collection. Again likely this represents sequela of pancreatitis. SPLEEN: Enlarged measuring 14.3 cm in maximal length. ADRENAL GLANDS: Unremarkable KIDNEYS AND URETERS: Low-attenuation left lower pole renal cyst. Otherwise the kidneys are normal in size, shape, and attenuation. No hydronephrosis, hydroureter, or calculi seen. No perinephric stranding. BLADDER: Unremarkable GASTROINTESTINAL TRACT: Scattered colonic diverticulosis but no obvious diverticulitis. No obstructive changes to the bowel ABDOMINAL WALL: Small fat-containing left inguinal hernia. Tiny fat-containing umbilical hernia LYMPH NODES: Normal VASCULAR: Vascular calcification within the aorta iliac system. PELVIC VISCERA: Unremarkable OSSEOUS STRUCTURES: Multilevel degenerative changes in the spine. CT/CT abdomen pelvis wo/w con IMPRESSION: Peripancreatic fluid collection in the region the pancreatic tail extending from the lesser sac to the splenic hilum. I do not appreciate a discrete wall around the entirety of this collection at this time suggesting more likely sequela of pancreatitis. No abnormal soft tissue gas to suggest underlying infection. No pancreatic ductal dilatation. Coarsened calcifications in the pancreatic neck likely representing sequela of prior chronic pancreatitis. Other changes as described above
[2020-09-16 05:10] LABS: Vitamin B12 1256 pg/mL (200-900)
[2020-09-16] MEDS: Lactated Ringers 1,000 ML 150 ML IVCONT ×3 (05:40→17:06)
[2020-09-16 06:11] LABS: MANUAL DIFF FLAG NO
[2020-09-16 06:16] LABS: Basophils Percent Auto 0.3 % (0-2); Eosinophils Absolute Auto 0.1 X10*3/uL (0.0-0.4); Eosinophils Percent Auto 1.8 % (0-4); Hematocrit 22.7 % (42-52); Hemoglobin 7.7 g/dl (14.0-18.0); Imm Gran Abs Auto 0.02 X10*3/uL (0.00-0.03); Imm Gran Pct Auto 0.6 % (0.0-0.4); Lymphocytes Absolute Auto 0.9 X10*3/uL (1.2-4.9); Lymphocytes Percent Auto 27.3 % (20-40); Mean Corpuscular HGB Conc 33.9 g/dl (31.0-36.0); Mean Corpuscular Hemoglobin 31.2 pg (27.0-33.0); Mean Corpuscular Volume 91.9 fL (80-98); Mean Platelet Volume 10.4 fL (9.4-12.4); Monocytes Absolute Auto 0.3 X10*3/uL (0.1-1.2); Monocytes Percent Auto 9.7 % (2-11); NRBC Pct Auto 0.6 /100WBC (0.0-0.2); Neutrophils Percent Auto 60.3 % (45-73); Red Blood Count 2.47 X10*6/uL (4.60-5.80); Red Cell Distribution Width 13.8 % (11.0-16.0); White Blood Count 3.3 X10*3/uL (4.8-10.8)
--- NOTE | 2020-09-16 06:45 | PC.NURSE ---
PATIENT NOTED TO BE INCONTINENT OF URINE AND A VERY LARGE AMOUNT OF LIQUID STOOL IN HIS BED. PATIENT WAS VERY RESISTIVE TO SKIN CARE AND BEING CLEANSED, BED SHEET CHANGE, AND REPOSITIONED. STAFF OF THREE NEEDED TO CLEAN PATIENT WHO WAS VERY UNCOOPERATIVE, SWEARING, AND DISRESPECTFUL TO ALL 3 STAFF MEMBERS. NOTED TO RELAX AND NAP SHORTLY AFTER CARE. [facility] [employer] ALERTED TO INCIDENT.
[2020-09-16 06:54] LABS: Anion Gap 16 (12-20); Blood Urea Nitrogen 10 mg/dL (9-16); Calcium 7.9 mg/dL (8.4-10.2); Carbon Dioxide 29 mmol/L (22-29); Chloride 95 mmol/L (96-108); Creatinine Clr Calc Pharmacy 89.4; Estimated Glomerular Filt Rate > 60; Glucose Fasting 153 mg/dL (60-99); Magnesium 0.9 mg/dL (1.6-2.6); Potassium 2.9 mmol/l (3.3-5.1); Sodium 137 mmol/L (135-145)
[2020-09-16 07:56] LABS: Glucose, Whole Blood 195 mg/dL (60-115)
[2020-09-16] MEDS: Insulin Lispro 100 UNIT/ML 3 ML VIAL SUBCUT ×4 (08:07→21:01)
[2020-09-16] MEDS: Potassium Chloride ER 20 MEQ TAB.ER.PRT 40 MEQ PO (08:09)
[2020-09-16] MEDS: Gabapentin 400 MG CAPSULE PO ×3 (08:10→21:01)
[2020-09-16] MEDS: Thiamine HCL 200 MG/2 ML VIAL 100 MG IVPUSH (08:10)
[2020-09-16] MEDS: Magnesium Sulfate/H2O 2 GM/50 ML PIGGYBACK IV (08:11)
[2020-09-16] MEDS: Magnesium Oxide 400 MG TABLET 800 MG PO (08:11)
[2020-09-16] MEDS: 0.9 % Sodium Chloride Flush 3 ML SYRINGE IVFLUSH (08:11)
[2020-09-16] MEDS: Folic Acid 1 MG TABLET PO ×2 (08:23→08:27)
[2020-09-16 08:25] LABS: Platelet Count 19 X10*3/uL (160-400)
--- NOTE | 2020-09-16 09:30 | HO.PM.IMPN ---
Subjective Subjective Date of Service: 09/16/20 Interval History: Nausea vomiting, some abdominal pain Respiratory Respiratory: Reports no additional respiratory complaints Gastrointestinal Gastrointestinal: Reports no additional gastrointestinal complaints Physical Exam Vital Signs: Vital Signs: Last Vital Signs Temp 97.3 F 09/16/20 07:58 Pulse 88 09/16/20 07:58 Resp 19 09/16/20 07:58 BP 94/67 09/16/20 07:58 Pulse Ox 99 09/16/20 07:58 Body Mass Index 25.0 General: AO X 3, no acute distress Resp: CTA bilateral CVS: S1,S2,RRR GI: soft, mild tender, non distended Neuro: motor grossly intact Psych: appropriate affect Objective Data Current Medications Generic Name Dose Route Start Last Admin Trade Name Freq PRN Reason Stop Dose Admin Acetaminophen 650 mg 09/12/20 23:13 Acetaminophen 325 Mg Tablet PO Q6H PRN Pain, Mild (Pain Scale 1-3) Docusate Sodium 100 mg 09/12/20 23:13 Docusate Sodium 100 Mg Capsule PO DAILY PRN Constipation Folic Acid 1 mg 09/16/20 09:00 09/16/20 08:27 Folic Acid 1 Mg Tablet PO 1 mg DAILY JOSE Administration Gabapentin 400 mg 09/13/20 09:00 09/16/20 08:10 Gabapentin 400 Mg Capsule PO 400 mg TID JOSE Administration Lactated Ringer's 1,000 mls @ 150 mls/hr 09/14/20 12:45 09/16/20 05:40 Lr IVCONT 150 mls/hr .Q6H40M JOSE Administration Insulin Human Lispro 0 unit 09/13/20 16:30 09/16/20 08:07 Insulin Lispro 100 Unit/Ml 3 Ml Vial SUBCUT 2 unit QIDACHS JOSE Administration Protocol Ondansetron HCl 4 mg 09/12/20 23:13 Ondansetron Hcl 4 Mg/2 Ml Vial IVPUSH Q8H PRN Nausea and Vomiting Pharmacy Consult 1 each 09/12/20 17:11 Consult Rx Perform Med Rec MISCELLANE ONCE PRN Consult order Sodium Chloride 3 ml 09/13/20 00:00 09/16/20 08:11 0.9 % Sodium Chloride Flush 3 Ml Syringe IVFLUSH 3 ml QSHIFT JOSE Administration Thiamine HCl 100 mg 09/13/20 09:00 09/16/20 08:10 Thiamine Hcl 200 Mg/2 Ml Vial IVPUSH 100 mg DAILY JOSE Administration Labs CBC & Chem 7: 09/16/20 05:30 09/16/20 05:30 Microbiology Microbiology Results: Microbiology 09/12/20 18:08 Blood - Venous Blood Culture - Preliminary No growth after 48 hours. 09/12/20 17:23 Blood - Venous Blood Culture - Preliminary No growth after 48 hours. Assessment and Plan (1) LIANA (acute kidney injury): Status: Acute (2) Acute pancreatitis: Status: Acute Assessment and Plan: This is a 60-year-old male with past medical history of alcohol abuse, diabetes who presented to the hospital after being found disheveled in his home on the floor complaining of abd pain acute alcoholic pancreatitis advanced to low fat diet 09/15/20, still with some abdominal pain, nausea, vomiting, but does not want to deescalate diet lesion posterior to pancreatic, will check mri gi appreciated Pancytopenia with severe thrombocytopenia CT abdomen with no clear splenomegaly Patient does not appear to have cirrhosis on imaging/labs, B12 within normal limits Will transfuse 1 unit of platelets Hematology eval LIANA Resolved hypokalemia, hypomagnesemia replace and monitor etoh dependence monitor ciwa, no signs of withdrawal at this time DVT prophylaxis- mechanical due to thrombocytopenia
--- NOTE | 2020-09-16 10:55 | MHC.RECOVRN ---
Recovery Support Note: Pt arrived to [facility] via ambulance on 09/12/20 after being found disheveled on the floor in his home and complaining of abdominal pain. Pt initially here for failure to thrive. Pt admitted due to LIANA, electrolyte abnormality, hyperglycemia, pancreatitis. T/w met with patient in 444-2 to discuss substance use. Pt oriented x3, spent most of the discussion with his eyes closed. Pt reports alcohol use, 2 sleeves x5 years. States when honey I went to the bottle. Pt reports having been together 23 years and the loss has been very difficult. Pt reports last use 2 weeks ago. Age of first use:10 Current cravings: Hell no. I feel like dog shit. Prior treatment: Detox 7 times I'll go anywhere but nothing to do with cyndi Islas, that's all I can say. Current mental health providers: Adrian Miles and Marv Sin Pt reports my therapist has been helpful Longest period in recovery: 2 weeks Social: Pt currently lives independently in an apartment. States I sit around and drink. Denies family history of addiction, states Nope, just me. Pt does endorse having supportive family. Pt would like to try medication for alcohol use disorder, although pt has stated I've tried them all and I still ended up here. Pt also interested in continuing with substance use disorder treatment once stable. Plan: Pt provided with information regarding inpatient and outpatient treatment. Pt too acute at this time to begin medication for alcohol use disorder, pt provided with information regarding medications and the [facility]. Per interdisciplinary rounds, step-daughter may pursue [facility] once patient is medically stable. Pt provided with t/w card if questions or concerns arise. Will continue to follow.
[2020-09-16 11:02] LABS: Glucose, Whole Blood 342 mg/dL (60-115)
[2020-09-16 11:55] LABS: Iron 67 mcg/dL (45-160); Lactate Dehydrogenase 168 U/L (118-273); Percent Iron Saturation 36 % (15-50); Total Iron Binding Capacity 184 mcg/dL (228-428); Unsaturated Iron Binding 117 ug/dL
[2020-09-16 11:56] LABS: Retic HGB Equivalent 34.9 pg (30.0-35.0); Reticulocyte Percent 1.5 % (0.5-1.8)
[2020-09-16 12:32] LABS: Folate 4.3 ng/mL (> or = 4.0)
--- NOTE | 2020-09-16 14:32 | MHC.CM.PN ---
CM SPOKE TO PTS BROTHER, LUH ([phone]) WHO REPORTS HE STILL PLANS TO FILE FOR A SECTION 35 PRIOR TO THE PT BEING DISCHARGED HE IS WORRIED IF THE PT RETURNS HOME HE WILL RESUME DRINKING. LUH REPORTS HE HAS DONE SOME CLEANING AND FUMIGATING IN THE PTS APARTMENT BUT IT STILL HAS A WAYS TO GO BEFORE IT IS HABITABLE. CM INFORMED LUH THAT THE MD DID NOT APPEAR TO FEEL THE PT WOULD BE READY TO DC TODAY OR TOMORROW. LUH ASKS THAT HE BE INFORMED WHEN AN EXPECTED DC DATE IS KNOWN SO THAT HE CAN FILE WITH THE [facility] [facility].
--- NOTE | 2020-09-16 16:07 | PM.HEMONCCN ---
Subjective - Subjective Chief complaint: Abdominal pain Patient: new to practice Consult date: 09/16/20 Requesting Physician: Dr. Botello. Primary Care Provider: Unknown Physician HPI - Consult Narrative Reason for consult: Thrombocytopenia/anemia Narrative: Pedrito Esteves is a 60 year old male Her with multiple medical problems but chiefly alcoholism who was admitted on 09/12/2020 with mental status changes. He was found dish ever old at home, on the floor and lethargic. On arrival To the ED hemodynamically stable with no significant abnormal vitals. Labs were significant for normal WBC count of 6.6, hemoglobin of 10.2, hematocrit 28.1, PT of 13.7, INR of 1.2, creatinine of 2.36 with a BUN of 62. Blood sugar was elevated at 641. Abdominal CT showed soft tissue stranding around the pancreas reported as sequelae of pancreatitis. There was also a density in the region of the pancreatic tail which could represent a complex fluid collection and or organizing inflammatory change. His blood counts worsened over the next few days with hemoglobin dropping to 7.7 gram/dL and platelets dropping from 61K to 19K on 09/16/2020. He got a few doses of ceftriaxone and 1 dose of subcutaneous heparin. He got 1 dose of Zosyn on 09/13/2020. Patient denies being told of anemia or low platelets in the past. He says he saw his PCP around 6 months or a year ago. He denies hematochezia, melena or epistaxis. He says he has extensive skin bruises. He says he hurt his left knee. He has been unemployed for about 5 years. He lives alone at home. He admits to chronic alcoholism and drinking on a daily basis. Review of Systems - Constitutional Reports poor appetite, Reports weight loss - Neurologic Reports no additional neurologic complaints, Reports abnormal speech, Denies dizziness, Denies headache(s), Denies numbness, Denies tingling, Reports weakness PMFSH Medical History: Medical History (Last Reviewed 09/13/20 @ 05:59 by Nayely Shepard MD) Attention deficit disorder Degenerative disc disease, cervical Depression Diabetes mellitus Dyslipidemia History of substance abuse Hypotestosteronism Osteoarthritis of right hand Pancreatitis Family History: Family History (Last Reviewed 09/12/20 @ 17:01 by Denise Nina NP) Father Cancer Mother Cancer Diabetes Surgical History: Surgical History (Last Reviewed 09/12/20 @ 17:01 by Denise Nina NP) History of surgery Smoking status: Current every day smoker Home Medications and Allergies Current Medications: Current Medications Generic Name Dose Route Start Last Admin Trade Name Lolis PRN Reason Stop Dose Admin Acetaminophen 650 mg 09/12/20 23:13 Acetaminophen 325 Mg Tablet PO Q6H PRN Pain, Mild (Pain Scale 1-3) Docusate Sodium 100 mg 09/12/20 23:13 Docusate Sodium 100 Mg Capsule PO DAILY PRN Constipation Folic Acid 1 mg 09/16/20 09:00 09/16/20 08:27 Folic Acid 1 Mg Tablet PO 1 mg DAILY JOSE Administration Gabapentin 400 mg 09/13/20 09:00 09/16/20 14:42 Gabapentin 400 Mg Capsule PO 400 mg TID JOSE Administration Lactated Ringer's 1,000 mls @ 150 mls/hr 09/14/20 12:45 09/16/20 13:22 Lr IVCONT 150 mls/hr .Q6H40M JOSE Administration Insulin Human Lispro 0 unit 09/13/20 16:30 09/16/20 11:21 Insulin Lispro 100 Unit/Ml 3 Ml Vial SUBCUT 8 unit QIDACHS JOSE Administration Protocol Ondansetron HCl 4 mg 09/12/20 23:13 Ondansetron Hcl 4 Mg/2 Ml Vial IVPUSH Q8H PRN Nausea and Vomiting Pharmacy Consult 1 each 09/12/20 17:11 Consult Rx Perform Med Rec MISCELLANE ONCE PRN Consult order Sodium Chloride 3 ml 09/13/20 00:00 09/16/20 08:11 0.9 % Sodium Chloride Flush 3 Ml Syringe IVFLUSH 3 ml QSHIFT JOSE Administration Thiamine HCl 100 mg 09/13/20 09:00 09/16/20 08:10 Thiamine Hcl 200 Mg/2 Ml Vial IVPUSH 100 mg DAILY JOSE Administration Home Medications Medication Instructions Recorded Confirmed Type acamprosate 333 mg tablet,delayed 666 mg PO TID 06/11/20 09/12/20 History release amitriptyline 25 mg tablet 25 mg PO BEDTIME 06/11/20 09/12/20 History dexmethylphenidate 10 mg PO DAILY 09/12/20 09/12/20 History insulin glargine [Basaglar KwikPen 0 unit SUBCUT QPM 09/12/20 History U-100 Insulin] Allergies Allergy/AdvReac Type Severity Reaction Status Date / Time acamprosate Allergy Unknown redness Verified 06/11/20 08:50 and itching Docusate Sodium Allergy Unknown Migraines Verified 07/16/20 14:05 Physical Exam Vital signs: Vital Signs Temp 97.4 F 09/16/20 11:09 Pulse 88 09/16/20 11:09 Resp 20 09/16/20 11:09 BP 128/62 09/16/20 11:09 Pulse Ox 98 09/16/20 11:09 Intake & Output 09/15/20 09/16/20 09/16/20 18:59 06:59 18:59 Intake Total 2237.5 / 4517.5 2280 / 4517.5 1530 / 1530 Output Total 400 / 600 200 / 600 300 / 300 Balance 1837.5 / 3917.5 2080 / 3917.5 1230 / 1230 Urine Output (Average ml/kg/hr) 0.45 0.22 0.33 Intake: Intake, Oral Amount 440 / 440 480 / 480 Intake, IV Amount 2237.5 / 4077.5 1840 / 4077.5 1050 / 1050 Magnesium Sulfate/H2O 2 gm In 50 / 50 50 ml @ 25 mls/hr IV ONCE ONE Rx#:[id number] Lactated Ringers 1,000 ml @ 150 2237.5 / 4077.5 1840 / 4077.5 1000 / 1000 mls/hr IVCONT .Q6H40M [facility] Rx#: [id number] Output: Output, Urine Amount 400 / 600 200 / 600 300 / 300 Other: Meal Refused No NPO No Breakfast % Eaten 100% Lunch % Eaten 25% Number of Incontinent Voids 2 2 Number of Unmeasured Voids 2 Number of Bowel Movements 2 1 Urine Urinal Urine Color Concentrated Last Bowel Movement 09/15/20 09/16/20 09/16/20 Stool Incontinent Incontinent Stool Amount Moderate Large Stool Color Brown Brown Stool Consistency Liquid Liquid Weight 74.843 kg - Constitutional Present: no acute distress, disheveled - Routine HEENT Exam Head: Present: normal inspection Eye: Present: EOMI, conjunctivae pale - Routine Neck Exam Absent: lymphadenopathy - Routine Respiratory Exam Present: CTAB. Absent: respiratory distress - Routine Cardiovascular Exam Cardiovascular: Present: S1, S2 - Routine Abdominal Exam Absent: rigid - Routine Skin Exam Present: ecchymosis - Routine Neurological Exam Present: alert, oriented X3 Hem/Onc Consult Result - Labs CBC & Chem 7: 09/16/20 05:30 09/16/20 05:30 Labs: Short CBC 09/16/20 Range/Units 05:30 WBC 3.3 L (4.8-10.8) X10*3/uL Hgb 7.7 L D (14.0-18.0) g/dl Hct 22.7 L D (42-52) % Plt Count 19 L* (160-400) X10*3/uL BMP 09/16/20 05:30 Sodium 137 Potassium 2.9 L Chloride 95 L Carbon Dioxide 29 BUN 10 Creatinine 0.86 Calcium 7.9 L Assessment and Plan (1) Thrombocytopenia Status: Acute 1. This is a 60-year-old male admitted with symptoms of acute alcohol related pancreatitis found to have worsening thrombocytopenia/pancytopenia. He has had a history of chronic thrombocytopenia with platelet count as low as 30 K in 2019. Thrombocytopenia dates back to at least 2013. He has also been anemic over the years and has had intermittent kidney injury probably related to alcohol-related dehydration. He has had multiple prior ER visits and admissions with similar problems. However, his platelet counts were never this low. Imaging does not show liver cirrhosis or splenomegaly. Possible etiology is alcohol related bone marrow suppression. He has also received one dose of Zosyn and 2/3 doses of ceftriaxone which can sometimes cause thrombocytopenia and hemolytic anemia. There is no evidence of hemolysis but he had acute kidney injury which could be a cause for his anemia in addition to bone marrow suppression, malnutrition and possibly blood loss. He has reticulocytopenia which is indicative of bone marrow suppression. Myelodysplastic syndrome, lymphoma and plasma cell dyscrasia is also possibility. He does not have coagulopathy, LDH is normal with normal Liver function tests and therefore less likely for this to be TTP/HUS. I agree with platelet transfusion, blood transfusion if his hemoglobin does not come up tomorrow. He does not have any significant hematinic deficiencies, he has mild folic acid deficiency and he is on replacement. I thank you for this consult, will follow with you.
[2020-09-16 16:13] LABS: Glucose, Whole Blood 306 mg/dL (60-115)
[2020-09-16 20:27] LABS: Glucose, Whole Blood 320 mg/dL (60-115)
[2020-09-16] MEDS: iohexoL 350 MG/ML 100 ML INFUS..BTL IV (22:06)
[2020-09-17] MEDS: Lactated Ringers 1,000 ML 150 ML IVCONT ×2 (02:26→09:43)
[2020-09-17 03:12] VITALS: BP 93/65; PULSE 71; RESP 18; TEMP 37; O2SAT 97
[2020-09-17 07:13] LABS: Basophils Percent Auto 0.4 % (0-2); Eosinophils Percent Auto 1.7 % (0-4); Hemoglobin 7.8 g/dl (14.0-18.0); Imm Gran Abs Auto 0.02 X10*3/uL (0.00-0.03); Imm Gran Pct Auto 0.9 % (0.0-0.4); MANUAL DIFF FLAG SCAN; Monocytes Absolute Auto 0.2 X10*3/uL (0.1-1.2); Monocytes Percent Auto 8.9 % (2-11); PLT CLUMP 1; Red Cell Distribution Width 14.2 % (11.0-16.0); SCAN SMEAR FLAG 1
[2020-09-17 07:15] LABS: Hematocrit 23.2 % (42-52); Lymphocytes Absolute Auto 0.6 X10*3/uL (1.2-4.9); Lymphocytes Percent Auto 24.3 % (20-40); Mean Corpuscular HGB Conc 33.6 g/dl (31.0-36.0); Mean Corpuscular Hemoglobin 31.5 pg (27.0-33.0); Mean Corpuscular Volume 93.5 fL (80-98); Mean Platelet Volume 10.6 fL (9.4-12.4); Neutrophils Absolute Auto 1.5 X10*3/uL (2.0-8.3); Neutrophils Percent Auto 63.8 % (45-73); Red Blood Count 2.48 X10*6/uL (4.60-5.80)
[2020-09-17 07:38] LABS: Platelet Count 33 X10*3/uL (160-400)
[2020-09-17 07:47] VITALS: BP 133/66; PULSE 79; RESP 18; TEMP 36.3; O2SAT 98
[2020-09-17] MEDS: Thiamine HCL 200 MG/2 ML VIAL 100 MG IVPUSH (07:58)
[2020-09-17] MEDS: Insulin Lispro 100 UNIT/ML 3 ML VIAL SUBCUT ×4 (07:59→22:00)
[2020-09-17] MEDS: Folic Acid 1 MG TABLET PO (07:59)
[2020-09-17] MEDS: Gabapentin 400 MG CAPSULE PO ×3 (07:59→21:59)
[2020-09-17] MEDS: 0.9 % Sodium Chloride Flush 3 ML SYRINGE IVFLUSH ×2 (07:59→22:00)
[2020-09-17 08:07] LABS: Glucose, Whole Blood 297 mg/dL (60-115)
[2020-09-17 08:18] LABS: Anion Gap 13 (12-20); Blood Urea Nitrogen 7 mg/dL (9-16); Calcium 7.6 mg/dL (8.4-10.2); Carbon Dioxide 28 mmol/L (22-29); Chloride 99 mmol/L (96-108); Creatinine Clr Calc Pharmacy 99.9; Estimated Glomerular Filt Rate > 60; Glucose Fasting 267 mg/dL (60-99); Potassium 3.2 mmol/l (3.3-5.1); Sodium 137 mmol/L (135-145)
[2020-09-17 08:21] LABS: Magnesium 1.4 mg/dL (1.6-2.6)
[2020-09-17 08:30] LABS: SLIDE REVIEW VERIFIED; White Blood Count 2.4 X10*3/uL (4.8-10.8)
[2020-09-17] MEDS: Magnesium Sulfate/D5W 1 GM/100 ML PIGGYBACK IV (09:28)
[2020-09-17] MEDS: Potassium Chloride ER 20 MEQ TAB.ER.PRT 40 MEQ PO (09:28)
[2020-09-17 11:12] VITALS: BP 107/62; PULSE 93; RESP 17; TEMP 36.1; O2SAT 96
[2020-09-17 11:44] LABS: Glucose, Whole Blood 307 mg/dL (60-115)
--- NOTE | 2020-09-17 14:46 | P.PNIM_ITS ---
Subjective Subjective Date of Service: 09/17/20 Interval History: Patient seen and examined at bedside Patient reported some abdominal discomfort Constitutional Constitutional: Denies headache(s) and Reports weakness ENT Ears, Nose, Mouth, and Throat: Denies dizziness and Denies headache(s) Cardiovascular Cardiovascular: Reports no additional cardiovascular complaints Respiratory Respiratory: Reports no additional respiratory complaints Gastrointestinal Gastrointestinal: Reports no additional gastrointestinal complaints Genitourinary Genitourinary: Reports no additional male genitourinary complaints Musculoskeletal Musculoskeletal: Denies numbness and Denies tingling Neurologic Neurologic: Reports system reviewed and no additional complaints, except as documented, Reports Abnormal speech present, Denies dizziness, Denies headache(s), Denies numbness, Denies tingling and Reports weakness Physical Exam Vital Signs: Vital Signs: Last Vital Signs Temp 97.0 F 09/17/20 11:12 Pulse 93 09/17/20 11:12 Resp 17 09/17/20 11:12 BP 107/62 09/17/20 11:12 Pulse Ox 96 09/17/20 11:12 Body Mass Index 25.0 Const: General: cooperative, ill appearing, lethargic and poor hygiene (significant poor hygiene) Orientation/consciousness: oriented to person, oriented to place and lethargic Eyes: General: appearance normal, both eyes and all related structures Neck: Neck: Yes no meningeal signs Resp: Effort & Inspection: normal respiratory effort and able to speak in complete sentences Cardio: Rate: regular rate Rhythm: regular rhythm GI: Other: tender abdomen diffusely, worst in the epigastric region, Palpation (GI): Soft to palpation Auscultation: normal bowel sounds Neuro: General: oriented to person, oriented to place and no meningeal signs Speech: Abnormal speech present Extrem: General: Yes normal to inspection and Yes no pedal edema Objective Data Current Medications Generic Name Dose Route Start Last Admin Trade Name Freq PRN Reason Stop Dose Admin Acetaminophen 650 mg 09/12/20 23:13 Acetaminophen 325 Mg Tablet PO Q6H PRN Pain, Mild (Pain Scale 1-3) Docusate Sodium 100 mg 09/12/20 23:13 Docusate Sodium 100 Mg Capsule PO DAILY PRN Constipation Folic Acid 1 mg 09/16/20 09:00 09/17/20 07:59 Folic Acid 1 Mg Tablet PO 1 mg DAILY JOSE Administration Gabapentin 400 mg 09/13/20 09:00 09/17/20 07:59 Gabapentin 400 Mg Capsule PO 400 mg TID [facility] Administration Insulin Human Lispro 0 unit 09/13/20 16:30 09/17/20 12:09 Insulin Lispro 100 Unit/Ml 3 Ml Vial SUBCUT 8 unit QIDACHS [facility] Administration Protocol Magnesium Oxide 400 mg 09/17/20 17:30 Magnesium Oxide 400 Mg Tablet PO BIDPC [facility] Ondansetron HCl 4 mg 09/12/20 23:13 Ondansetron Hcl 4 Mg/2 Ml Vial IVPUSH Q8H PRN Nausea and Vomiting Pharmacy Consult 1 each 09/12/20 17:11 Consult Rx Perform Med Rec MISCELLANE ONCE PRN Consult order Sodium Chloride 3 ml 09/13/20 00:00 09/17/20 07:59 0.9 % Sodium Chloride Flush 3 Ml Syringe IVFLUSH 3 ml QSHIFT [facility] Administration Thiamine HCl 100 mg 09/13/20 09:00 09/17/20 07:58 Thiamine Hcl 200 Mg/2 Ml Vial IVPUSH 100 mg DAILY JOSE Administration Labs CBC & Chem 7: 09/17/20 06:38 09/17/20 06:38 Microbiology Microbiology Results: Microbiology 09/12/20 18:08 Blood - Venous Blood Culture - Preliminary No growth after 48 hours. 09/12/20 17:23 Blood - Venous Blood Culture - Preliminary No growth after 48 hours. Assessment and Plan (1) LIANA (acute kidney injury): Status: Acute (2) Acute pancreatitis: Status: Acute Assessment and Plan: This is a 60-year-old male with past medical history of alcohol abuse, diabetes who presented to the hospital after being found disheveled in his home on the floor complaining of abd pain Acute alcoholic pancreatitis improving Continue pain management Continue supportive manage Advanced diet as tolerated lesion posterior to pancreatic, gi appreciated Pancytopenia with severe thrombocytopenia CT abdomen with no clear splenomegaly Patient does not appear to have cirrhosis on imaging/labs, B12 within normal limits Received 1 unit of platelets Platelet count improved today Monitor CBC Hematology consulted Anemia H&H dropped from 10-7.7 Will check stool for occult blood Will get GI follow-up May need transfusion if drop further LIANA Resolved hypokalemia, hypomagnesemia replace and monitor etoh dependence monitor ciwa, no signs of withdrawal at this time DVT prophylaxis- mechanical due to thrombocytopenia
[2020-09-17 16:00] VITALS: BP 93/54; PULSE 100; RESP 18; TEMP 36.6; O2SAT 93
[2020-09-17 16:36] LABS: Glucose, Whole Blood 263 mg/dL (60-115)
[2020-09-17] MEDS: Magnesium Oxide 400 MG TABLET PO (17:21)
[2020-09-17 17:30] LABS: OBS Int Ctl Valid YES; OBS1 NEG (NEG)
[2020-09-17 20:00] VITALS: BP 96/63; PULSE 93; RESP 20; TEMP 37.2; O2SAT 95
[2020-09-17 21:17] LABS: Glucose, Whole Blood 219 mg/dL (60-115)
[2020-09-18] VITALS: BP 95/60; PULSE 75; RESP 18; TEMP 37.1; O2SAT 97
--- NOTE | 2020-09-18 | ECG_ITS ---
Test Reason : chest pain Blood Pressure : / mmHG Vent. Rate : 085 BPM Atrial Rate : 085 BPM P-R Int : 162 ms QRS Dur : 074 ms QT Int : 352 ms P-R-T Axes : -14 024 006 degrees QTc Int : 418 ms Normal sinus rhythm Nonspecific T wave abnormality Abnormal ECG No previous ECGs available Referred By: Zeferino Rodriguez Electronically Signed By:Paolo Montaño
[2020-09-18 03:20] VITALS: BP 95/64; PULSE 80; RESP 18; TEMP 36.8; O2SAT 94
[2020-09-18 06:26] LABS: MANUAL DIFF FLAG NO
[2020-09-18 06:56] LABS: Basophils Percent Auto 0.9 % (0-2); Eosinophils Absolute Auto 0.1 X10*3/uL (0.0-0.4); Eosinophils Percent Auto 2.1 % (0-4); Hematocrit 25.5 % (42-52); Hemoglobin 8.6 g/dl (14.0-18.0); Imm Gran Abs Auto 0.02 X10*3/uL (0.00-0.03); Imm Gran Pct Auto 0.6 % (0.0-0.4); Lymphocytes Percent Auto 30.3 % (20-40); Mean Corpuscular HGB Conc 33.7 g/dl (31.0-36.0); Mean Corpuscular Hemoglobin 31.7 pg (27.0-33.0); Mean Corpuscular Volume 94.1 fL (80-98); Mean Platelet Volume 11.3 fL (9.4-12.4); Monocytes Absolute Auto 0.3 X10*3/uL (0.1-1.2); Monocytes Percent Auto 10.4 % (2-11); Neutrophils Absolute Auto 1.8 X10*3/uL (2.0-8.3); Neutrophils Percent Auto 55.7 % (45-73); Red Blood Count 2.71 X10*6/uL (4.60-5.80); Red Cell Distribution Width 14.6 % (11.0-16.0); White Blood Count 3.3 X10*3/uL (4.8-10.8)
[2020-09-18 06:57] LABS: Platelet Count 35 X10*3/uL (160-400)
[2020-09-18 07:10] LABS: Anion Gap 12 (12-20); Blood Urea Nitrogen 7 mg/dL (9-16); Calcium 7.9 mg/dL (8.4-10.2); Carbon Dioxide 27 mmol/L (22-29); Chloride 102 mmol/L (96-108); Creatinine Clr Calc Pharmacy 99.9; Estimated Glomerular Filt Rate > 60; Glucose Random 220 mg/dL (60-115); Potassium 3.4 mmol/l (3.3-5.1); Sodium 138 mmol/L (135-145)
[2020-09-18 07:42] VITALS: BP 99/61; PULSE 100; RESP 19; TEMP 37.1; O2SAT 95
[2020-09-18 08:09] LABS: Glucose, Whole Blood 234 mg/dL (60-115)
[2020-09-18 08:27] LABS: Magnesium 1.5 mg/dL (1.6-2.6)
[2020-09-18] MEDS: Folic Acid 1 MG TABLET PO (08:36)
[2020-09-18] MEDS: Magnesium Oxide 400 MG TABLET PO ×2 (08:36→17:17)
[2020-09-18] MEDS: Thiamine HCL 200 MG/2 ML VIAL 100 MG IVPUSH (08:36)
[2020-09-18] MEDS: Gabapentin 400 MG CAPSULE PO ×3 (08:36→21:15)
[2020-09-18] MEDS: Insulin Lispro 100 UNIT/ML 3 ML VIAL SUBCUT ×4 (08:37→21:15)
[2020-09-18] MEDS: 0.9 % Sodium Chloride Flush 3 ML SYRINGE IVFLUSH ×2 (08:41→16:41)
--- NOTE | 2020-09-18 10:07 | HO.PM.IMPN ---
Subjective Subjective Date of Service: 09/18/20 Interval History: seen and examined this AM feels the same ROS General - no fevers or chills Cardiovascular - no chest pain Respiratory - no shortness of breath or cough Abdominal- no abdominal pain, nausea, vomiting, diarrhea Physical Exam Vital Signs: Vital Signs: Last Vital Signs Temp 98.8 F 09/18/20 07:42 Pulse 100 09/18/20 07:42 Resp 19 09/18/20 07:42 BP 99/61 09/18/20 07:42 Pulse Ox 95 09/18/20 07:42 Body Mass Index 25.0 Const: Other: General - no acute distress, appears comfortable Cardiovascular - regular rate and rhythm, S1-S2 Lungs - normal respiratory effort, clear to auscultation bilaterally, no wheezing Abdomen - soft, nontender, no rebound or guarding Extremities - no edema bilaterally Neuro - awake and alert, no focal deficits Objective Data Current Medications Generic Name Dose Route Start Last Admin Trade Name Freq PRN Reason Stop Dose Admin Acetaminophen 650 mg 09/12/20 23:13 Acetaminophen 325 Mg Tablet PO Q6H PRN Pain, Mild (Pain Scale 1-3) Docusate Sodium 100 mg 09/12/20 23:13 Docusate Sodium 100 Mg Capsule PO DAILY PRN Constipation Folic Acid 1 mg 09/16/20 09:00 09/18/20 08:36 Folic Acid 1 Mg Tablet PO 1 mg DAILY JOSE Administration Gabapentin 400 mg 09/13/20 09:00 09/18/20 08:36 Gabapentin 400 Mg Capsule PO 400 mg TID JOSE Administration Insulin Human Lispro 0 unit 09/13/20 16:30 09/18/20 08:37 Insulin Lispro 100 Unit/Ml 3 Ml Vial SUBCUT 4 unit QIDACHS JOSE Administration Protocol Magnesium Oxide 400 mg 09/17/20 17:30 09/18/20 08:36 Magnesium Oxide 400 Mg Tablet PO 400 mg BIDPC JOSE Administration Ondansetron HCl 4 mg 09/12/20 23:13 Ondansetron Hcl 4 Mg/2 Ml Vial IVPUSH Q8H PRN Nausea and Vomiting Pharmacy Consult 1 each 09/12/20 17:11 Consult Rx Perform Med Rec MISCELLANE ONCE PRN Consult order Sodium Chloride 3 ml 09/13/20 00:00 09/18/20 08:41 0.9 % Sodium Chloride Flush 3 Ml Syringe IVFLUSH 3 ml QSHIFT JOSE Administration Labs CBC & Chem 7: 09/18/20 06:11 09/18/20 06:11 Microbiology Microbiology Results: Microbiology 09/12/20 18:08 Blood - Venous Blood Culture - Final No growth after 5 days. 09/12/20 17:23 Blood - Venous Blood Culture - Final No growth after 5 days. Assessment and Plan (1) LIANA (acute kidney injury): Status: Acute (2) Acute pancreatitis: Status: Acute Assessment and Plan: This is a 60-year-old male with past medical history of alcohol abuse, diabetes who presented to the hospital after being found disheveled in his home on the floor complaining of abd pain 1. Acute alcoholic pancreatitis clinically improving taper pain meds advance diet 2. Pancytopenia with severe thrombocytopenia hematology input appreciated suspected secondary to chronic alcoholism 3. Anemia likely due to liver dx no evidence of acute gi bleed at this time h/h stable >24 hours 4. LIANA Resolved 5. hypokalemia, hypomagnesemia replace and monitor 6. etoh dependence monitor ciwa, no signs of withdrawal at this time 7. Dysphagia being followed by speech - advance per their recs DVT prophylaxis- mechanical due to thrombocytopenia
[2020-09-18 11:12] VITALS: BP 111/82; PULSE 91; RESP 17; TEMP 36.2; O2SAT 94
--- NOTE | 2020-09-18 11:24 | MHC.SLORD ---
COCOA POWDER MIXER OPERATOR attempted to see pt x2 this morning. Both times pt was in the restroom reportedly passing bowels per RN. Pt's current diet is ground/mech altered solids and nectar thick liquids with pills whole in puree. Per RN, pt is tolerating without difficulty. COCOA POWDER MIXER OPERATOR will re-attempt dysphagia treatment later today or first thing tomorrow morning. Name: Pedrito Esteves Date of : 1960 Age: 60 Date of Registration: 09/12/20 Speech Language Pathology Order Status:
[2020-09-18 11:55] LABS: Glucose, Whole Blood 304 mg/dL (60-115)
--- NOTE | 2020-09-18 12:19 | MHC.CM.PN ---
NURSE STEAM SHOVEL OPERATING ENGINEER NOTE ELECTRONIC MEDICAL RECORD REVIEWED ALONG WITH CASE DISCUSSED WITH STAFF NURSE, joanne on multiple disciplinary rounds , reviewed care team notes. per documentation patient was admitted to the hospital secondary to history of etoh abuse diabetes and presented to the hospital after being found disheveled in his home on the floor complaining of abdominal pain . acute pancreatitis pancytopenia severe thrombocytopenia monitored by johana day no signs of withdrawl now dysphasia by speech evaluation patient has met with care team and obtained guidance on how to obtain section 35 patients brother polly ([phone]) i called and informed him that the doctor was planning on discharging patient tomorrow 09/19/20 is now planning to go to the court house and file for a section 35 . 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 discharge plan brother polly will go to court house 09/19/20 to apply for section 35
[2020-09-18 14:22] LABS: COVID-19 Test Negative (Negative); IDNOW Serial# 9DD0AD1C
[2020-09-18 16:43] LABS: Glucose, Whole Blood 319 mg/dL (60-115)
[2020-09-18 19:38] VITALS: BP 103/65; PULSE 92; RESP 19; TEMP 36.9; O2SAT 100
[2020-09-18 20:41] LABS: Glucose, Whole Blood 224 mg/dL (60-115)
[2020-09-19] VITALS: BP 123/75; PULSE 80; RESP 18; TEMP 36.6; O2SAT 99
[2020-09-19 03:31] VITALS: BP 107/66; PULSE 95; RESP 18; TEMP 36.6; O2SAT 99
[2020-09-19 07:28] VITALS: BP 120/79; PULSE 121; RESP 18; TEMP 36.1; O2SAT 96
[2020-09-19 08:22] LABS: Glucose, Whole Blood 209 mg/dL (60-115)
--- NOTE | 2020-09-19 09:03 | MHC.CM.PN ---
Addendum entered by Yoon Hernandez RN 09/19/20 09:07: STEP DAUGHTER/HCP TIA Victor M [phone] Original Note: CM RECEIVED CALL FROM PT'S STEP DAUGHTER/HCP TIA REGARDING DISCHARGE TIME FOR PT, CM MESSAGED ATTENDING WHO REPORTED PT WILL NOT BE DISCHARGE TODAY 09/19/20, CM RETURNED CALL TO PT'S STEP DAUGHTER AT 09OO TO LET HER KNOW PT WILL NOT BE DISCHARGED TODAY. STEP DAUGHTER TO CALL IN AM OF 09/20 TO CHECK ON DISCHARGE STATUS AND COORDINATE SECTION 35.
[2020-09-19 09:06] LABS: Basophils Percent Auto 0.3 % (0-2); Imm Gran Abs Auto 0.02 X10*3/uL (0.00-0.03); Imm Gran Pct Auto 0.6 % (0.0-0.4); MANUAL DIFF FLAG SCAN; PLT CLUMP 1; Red Cell Distribution Width 15.3 % (11.0-16.0); SCAN SMEAR FLAG 1
[2020-09-19 09:08] LABS: Eosinophils Absolute Auto 0.1 X10*3/uL (0.0-0.4); Eosinophils Percent Auto 1.9 % (0-4); Hematocrit 26.4 % (42-52); Hemoglobin 8.8 g/dl (14.0-18.0); Lymphocytes Absolute Auto 0.5 X10*3/uL (1.2-4.9); Lymphocytes Percent Auto 16.4 % (20-40); Mean Corpuscular HGB Conc 33.3 g/dl (31.0-36.0); Mean Corpuscular Hemoglobin 31.8 pg (27.0-33.0); Mean Corpuscular Volume 95.3 fL (80-98); Mean Platelet Volume 11.6 fL (9.4-12.4); Monocytes Absolute Auto 0.3 X10*3/uL (0.1-1.2); Neutrophils Absolute Auto 2.3 X10*3/uL (2.0-8.3); Neutrophils Percent Auto 71.8 % (45-73); Red Blood Count 2.77 X10*6/uL (4.60-5.80); White Blood Count 3.2 X10*3/uL (4.8-10.8)
[2020-09-19 09:13] LABS: Platelet Count 48 X10*3/uL (160-400)
[2020-09-19 09:30] LABS: SLIDE REVIEW VERIFIED
[2020-09-19 09:32] LABS: CDIFF Ag Negative (Negative); CDIFF Internal ctrl Dots and bkg OK (V); CDiff Toxin Negative (Negative)
[2020-09-19 09:42] LABS: Anion Gap 14 (12-20); Blood Urea Nitrogen 8 mg/dL (9-16); Carbon Dioxide 27 mmol/L (22-29); Chloride 102 mmol/L (96-108); Creatinine Clr Calc Pharmacy 98.6; Estimated Glomerular Filt Rate > 60; Glucose Random 239 mg/dL (60-115); Potassium 3.5 mmol/l (3.3-5.1); Sodium 139 mmol/L (135-145)
[2020-09-19] MEDS: Magnesium Oxide 400 MG TABLET PO ×2 (10:07→17:26)
[2020-09-19] MEDS: Gabapentin 400 MG CAPSULE PO ×3 (10:07→20:57)
[2020-09-19] MEDS: Thiamine HCL 100 MG TABLET PO (10:07)
[2020-09-19] MEDS: Insulin Lispro 100 UNIT/ML 3 ML VIAL SUBCUT ×4 (10:07→20:57)
[2020-09-19] MEDS: Folic Acid 1 MG TABLET PO (10:07)
[2020-09-19] MEDS: 0.9 % Sodium Chloride Flush 3 ML SYRINGE IVFLUSH ×3 (10:08→21:00)
[2020-09-19] MEDS: Loperamide HCl 2 MG CAPSULE 4 MG PO (10:58)
[2020-09-19 11:41] VITALS: BP 112/77; PULSE 109; RESP 18; TEMP 37.2; O2SAT 94
[2020-09-19 12:12] LABS: Glucose, Whole Blood 280 mg/dL (60-115)
[2020-09-19 15:34] VITALS: BP 100/64; PULSE 100; RESP 19; TEMP 37; O2SAT 100
[2020-09-19 16:41] LABS: Glucose, Whole Blood 263 mg/dL (60-115)
--- NOTE | 2020-09-19 18:07 | HO.PM.IMPN ---
Subjective Subjective Date of Service: 09/19/20 Interval History: seen and examined this AM feels the same, horrible per Rn rpoerts +diarrhea overnight and this AM ROS General - no fevers or chills Cardiovascular - no chest pain Respiratory - no shortness of breath or cough Abdominal- no abdominal pain, nausea, vomiting, +diarrhea Physical Exam Vital Signs: Vital Signs: Last Vital Signs Temp 98.6 F 09/19/20 15:34 Pulse 100 09/19/20 15:34 Resp 19 09/19/20 15:34 BP 100/64 09/19/20 15:34 Pulse Ox 100 09/19/20 15:34 Body Mass Index 25.0 Const: Other: General - no acute distress, appears comfortable Cardiovascular - regular rate and rhythm, S1-S2 Lungs - normal respiratory effort, clear to auscultation bilaterally, no wheezing Abdomen - soft, nontender, no rebound or guarding Extremities - no edema bilaterally Neuro - awake and alert, no focal deficits Objective Data Current Medications Generic Name Dose Route Start Last Admin Trade Name Lolis PRN Reason Stop Dose Admin Acetaminophen 650 mg 09/12/20 23:13 Acetaminophen 325 Mg Tablet PO Q6H PRN Pain, Mild (Pain Scale 1-3) Docusate Sodium 100 mg 09/12/20 23:13 Docusate Sodium 100 Mg Capsule PO DAILY PRN Constipation Folic Acid 1 mg 09/16/20 09:00 09/19/20 10:07 Folic Acid 1 Mg Tablet PO 1 mg DAILY JOSE Administration Gabapentin 400 mg 09/13/20 09:00 09/19/20 17:26 Gabapentin 400 Mg Capsule PO 400 mg TID JOSE Administration Insulin Human Lispro 0 unit 09/13/20 16:30 09/19/20 17:26 Insulin Lispro 100 Unit/Ml 3 Ml Vial SUBCUT 6 unit QIDACHS JOSE Administration Protocol Magnesium Oxide 400 mg 09/17/20 17:30 09/19/20 17:26 Magnesium Oxide 400 Mg Tablet PO 400 mg BIDPC JOSE Administration Ondansetron HCl 4 mg 09/12/20 23:13 Ondansetron Hcl 4 Mg/2 Ml Vial IVPUSH Q8H PRN Nausea and Vomiting Pharmacy Consult 1 each 09/12/20 17:11 Consult Rx Perform Med Rec MISCELLANE ONCE PRN Consult order Sodium Chloride 3 ml 09/13/20 00:00 09/19/20 17:28 0.9 % Sodium Chloride Flush 3 Ml Syringe IVFLUSH 3 ml QSHIFT JOSE Administration Thiamine HCl 100 mg 09/19/20 09:00 09/19/20 10:07 Thiamine Hcl 100 Mg Tablet PO 100 mg DAILY JOSE Administration Labs CBC & Chem 7: 09/19/20 08:34 09/19/20 08:34 Microbiology Microbiology Results: Microbiology 09/12/20 18:08 Blood - Venous Blood Culture - Final No growth after 5 days. 09/12/20 17:23 Blood - Venous Blood Culture - Final No growth after 5 days. Assessment and Plan (1) LIANA (acute kidney injury): Status: Acute (2) Acute pancreatitis: Status: Acute Assessment and Plan: This is a 60-year-old male with past medical history of alcohol abuse, diabetes who presented to the hospital after being found disheveled in his home on the floor complaining of abd pain 1. Acute alcoholic pancreatitis clinically improving taper pain meds advance diet 2. Pancytopenia with severe thrombocytopenia hematology input appreciated suspected secondary to chronic alcoholism recheck with labs tomorrow 3. Anemia likely due to liver dx no evidence of acute gi bleed at this time h/h stable >24 hours 4. LIANA Resolved 5. hypokalemia, hypomagnesemia replace and monitor 6. etoh dependence monitor ciwa, no signs of withdrawal at this time 7. Dysphagia being followed by speech - advance per their recs 8. diarrhea c. diff negative imodium prn DVT prophylaxis- mechanical due to thrombocytopenia
[2020-09-19 19:26] VITALS: BP 103/78; PULSE 100; RESP 20; TEMP 36.9; O2SAT 100
[2020-09-19 20:44] LABS: Glucose, Whole Blood 256 mg/dL (60-115)
[2020-09-20] VITALS (7 sets, daily range): BP systolic 91–104; BP diastolic 60–77; PULSE 72–111; RESP 14–18; TEMP 36–36.9; O2SAT 95–100
[2020-09-20 06:53] LABS: Basophils Percent Auto 0.5 % (0-2); Eosinophils Percent Auto 1.9 % (0-4); Hematocrit 22.4 % (42-52); Hemoglobin 7.6 g/dl (14.0-18.0); Imm Gran Abs Auto 0.01 X10*3/uL (0.00-0.03); Imm Gran Pct Auto 0.5 % (0.0-0.4); Lymphocytes Absolute Auto 0.5 X10*3/uL (1.2-4.9); Lymphocytes Percent Auto 25.4 % (20-40); MANUAL DIFF FLAG SCAN; Mean Corpuscular HGB Conc 33.9 g/dl (31.0-36.0); Mean Corpuscular Hemoglobin 32.1 pg (27.0-33.0); Mean Corpuscular Volume 94.5 fL (80-98); Mean Platelet Volume 10.9 fL (9.4-12.4); Monocytes Absolute Auto 0.4 X10*3/uL (0.1-1.2); Monocytes Percent Auto 17.7 % (2-11); Neutrophils Absolute Auto 1.1 X10*3/uL (2.0-8.3); Red Blood Count 2.37 X10*6/uL (4.60-5.80); Red Cell Distribution Width 15.2 % (11.0-16.0); SCAN SMEAR FLAG 1
[2020-09-20 06:55] LABS: Platelet Count 40 X10*3/uL (160-400); White Blood Count 2.1 X10*3/uL (4.8-10.8)
[2020-09-20 07:17] LABS: Alanine Aminotransferase 12 U/L (0-40); Albumin Level 2.7 g/dL (3.5-5.0); Alkaline Phosphatase 74 U/L (39-117); Anion Gap 12 (12-20); Aspartate Amino Transferase 22 U/L (5-37); Bilirubin Direct 0.4 mg/dL (0.0-0.5); Bilirubin Total 0.8 mg/dL (0.0-1.0); Blood Urea Nitrogen 7 mg/dL (9-16); Carbon Dioxide 25 mmol/L (22-29); Chloride 103 mmol/L (96-108); Creatinine Clr Calc Pharmacy 108.3; Estimated Glomerular Filt Rate > 60; Glucose Random 193 mg/dL (60-115); Magnesium 1.2 mg/dL (1.6-2.6); Sodium 137 mmol/L (135-145); Total Protein 5.1 g/dL (6.5-8.0)
[2020-09-20 07:29] LABS: Calcium 7.5 mg/dL (8.4-10.2)
[2020-09-20 07:32] LABS: SLIDE REVIEW VERIFIED
[2020-09-20 07:32] LABS: Glucose, Whole Blood 180 mg/dL (60-115)
[2020-09-20] MEDS: Insulin Lispro 100 UNIT/ML 3 ML VIAL SUBCUT ×4 (07:34→22:09)
[2020-09-20] MEDS: Thiamine HCL 100 MG TABLET PO (07:35)
[2020-09-20] MEDS: 0.9 % Sodium Chloride Flush 3 ML SYRINGE IVFLUSH ×2 (07:35→15:00)
[2020-09-20] MEDS: Magnesium Oxide 400 MG TABLET PO ×2 (07:35→17:20)
[2020-09-20] MEDS: Gabapentin 400 MG CAPSULE PO ×3 (07:35→22:10)
[2020-09-20] MEDS: Folic Acid 1 MG TABLET PO (07:35)
[2020-09-20] MEDS: Potassium Chloride ER 20 MEQ TAB.ER.PRT 60 MEQ PO (09:39)
[2020-09-20] MEDS: Magnesium Sulfate/H2O 2 GM/50 ML PIGGYBACK IV (09:40)
--- NOTE | 2020-09-20 09:42 | HO.PM.IMPN ---
Subjective Subjective Date of Service: 09/20/20 Interval History: seen and examined this AM feels tired and having diarrhea willing to go to [facility] General - no fevers or chills Cardiovascular - no chest pain Respiratory - no shortness of breath or cough Abdominal- no abdominal pain, nausea, vomiting, +diarrhea Physical Exam Vital Signs: Vital Signs: Last Vital Signs Temp 97.9 F 09/20/20 08:00 Pulse 81 09/20/20 08:00 Resp 18 09/20/20 08:00 BP 91/67 09/20/20 08:00 Pulse Ox 95 09/20/20 08:00 Body Mass Index 25.0 Const: Other: General - no acute distress, appears comfortable Cardiovascular - regular rate and rhythm, S1-S2 Lungs - normal respiratory effort, clear to auscultation bilaterally, no wheezing Abdomen - soft, nontender, no rebound or guarding Extremities - no edema bilaterally Neuro - awake and alert, no focal deficits Objective Data Current Medications Generic Name Dose Route Start Last Admin Trade Name Freq PRN Reason Stop Dose Admin Acetaminophen 650 mg 09/12/20 23:13 Acetaminophen 325 Mg Tablet PO Q6H PRN Pain, Mild (Pain Scale 1-3) Docusate Sodium 100 mg 09/12/20 23:13 Docusate Sodium 100 Mg Capsule PO DAILY PRN Constipation Folic Acid 1 mg 09/16/20 09:00 09/20/20 07:35 Folic Acid 1 Mg Tablet PO 1 mg DAILY JOSE Administration Gabapentin 400 mg 09/13/20 09:00 09/20/20 07:35 Gabapentin 400 Mg Capsule PO 400 mg TID JOSE Administration Insulin Human Lispro 0 unit 09/13/20 16:30 09/20/20 07:34 Insulin Lispro 100 Unit/Ml 3 Ml Vial SUBCUT 2 unit QIDACHS [facility] Administration Protocol Magnesium Oxide 400 mg 09/17/20 17:30 09/20/20 07:35 Magnesium Oxide 400 Mg Tablet PO 400 mg BIDPC [facility] Administration Ondansetron HCl 4 mg 09/12/20 23:13 Ondansetron Hcl 4 Mg/2 Ml Vial IVPUSH Q8H PRN Nausea and Vomiting Pharmacy Consult 1 each 09/12/20 17:11 Consult Rx Perform Med Rec MISCELLANE ONCE PRN Consult order Sodium Chloride 3 ml 09/13/20 00:00 09/20/20 07:35 0.9 % Sodium Chloride Flush 3 Ml Syringe IVFLUSH 3 ml QSHIFT JOSE Administration Thiamine HCl 100 mg 09/19/20 09:00 09/20/20 07:35 Thiamine Hcl 100 Mg Tablet PO 100 mg DAILY JOSE Administration Labs CBC & Chem 7: 09/20/20 06:07 09/20/20 06:07 Microbiology Microbiology Results: Microbiology 09/12/20 18:08 Blood - Venous Blood Culture - Final No growth after 5 days. 09/12/20 17:23 Blood - Venous Blood Culture - Final No growth after 5 days. Assessment and Plan (1) LIANA (acute kidney injury): Status: Acute (2) Acute pancreatitis: Status: Acute Assessment and Plan: This is a 60-year-old male with past medical history of alcohol abuse, diabetes who presented to the hospital after being found disheveled in his home on the floor complaining of abd pain 1. Acute alcoholic pancreatitis resolved tolearting diet 2. Diarrhea c. diff ruled out prn imodium 2. Pancytopenia with severe thrombocytopenia hematology input appreciated suspected secondary to chronic alcoholism recheck with labs tomorrow 3. Anemia likely due to liver dx no evidence of acute gi bleed at this time h/h stable >24 hours 4. LIANA Resolved 5. hypokalemia, hypomagnesemia low, continue schduled po mag + give 2gm iv today continue po k replacement as needed 6. etoh dependence monitor ciwa, no signs of withdrawal at this time 7. Dysphagia being followed by speech - advance per their recs 8. diarrhea c. diff negative imodium prn 9. weakness pt evaluation DVT prophylaxis- mechanical due to thrombocytopenia dispo: anticipate STR given his significant weakness.
--- NOTE | 2020-09-20 09:52 | MHC.CM.PN ---
CM met with pt to discuss DC planning. Pt reports being agreeable to short term rehab. Pt reports he wants to go to [facility] [place]. Referral sent. If [facility] is unable to offer a bed, CM will review STR list with pt as he reports being unable to read it on his own. Pt has a physical therapy eval pending and per MD will likely be ready to DC over the weekend
[2020-09-20 11:32] LABS: Glucose, Whole Blood 222 mg/dL (60-115)
--- NOTE | 2020-09-20 11:49 | MHC.PIE ---
P: Pt complaining of severe chest pain I: Vitals: P 78, BP 105/76, SAO2 97% on RA, MAP 86, Dr. Fran power[place] [facility] made aware, EKG ordered. E: Continue to monitor patient
[2020-09-20] MEDS: ondansetron HCL 4 MG/2 ML VIAL IVPUSH (11:57)
[2020-09-20] MEDS: Loperamide HCl 2 MG CAPSULE 4 MG PO (11:57)
--- NOTE | 2020-09-20 12:10 | ECG_ITS ---
Test Reason : CP Blood Pressure : / mmHG Vent. Rate : 076 BPM Atrial Rate : 076 BPM P-R Int : 160 ms QRS Dur : 072 ms QT Int : 406 ms P-R-T Axes : 013 -04 068 degrees QTc Int : 456 ms Normal sinus rhythm Nonspecific T wave abnormality Abnormal ECG When compared with ECG of 18-SEP-2020 23:05, Nonspecific T wave abnormality no longer evident in Inferior leads Referred By: Jd Peters Electronically Signed By:Paolo Montaño
--- NOTE | 2020-09-20 14:51 | MHC.CM.PN ---
CM met with pt to inform him that [facility] did not have a bed. CM assisted pt in reviewing a list of SNF's contracted with his insurance and he [facility]. Pt reports he does not hae a preference in facility and would be fine with any of these. referrals sent
[2020-09-20] MEDS: Midodrine HCl 5 MG TABLET PO ×2 (15:00→22:08)
[2020-09-20 15:38] LABS: COVID-19 Test Negative (Negative)
--- NOTE | 2020-09-20 16:20 | MHC.CM.PN ---
CM RECEIVED A CALL FROM PTS BROTHER, HARVINDER, WHO REPORTS HE SPOKE TO THE PTS STEP-DAUGHTER AND LEARNED THE PT IS NOW AGREEABLE TO STR SO HE DOES NOT PLAN TO MOVE FORWARD WITH THE SECTION 35. HE REPORTS HE HAS DONE MORE RESEARCH ON THE SECTION 35 AND FEELS IT IS A DOUBLE EDGE SWORD AND HE WILL NOT DON ONE UNLESS HE ABSOLUTELY HAS TO. HE REPORTS HE IS HOPEFUL THAT IF THE PT IS HERE GETTING HIS MEDICATIONS AND HIS MEDICAL CONDITIONS UNDER CONTROL, AND THEN GOES TO STR WHERE HE WILL GET PT, HE WILL FEEL BETTER AND MAY MAKE BETTER CHOICES. HARVINDER IS AWARE THE PT DOES NOT YET HAVE A BED OFFER AND THAT CM HAS MADE SEVERAL REFERRALS BUT MAY NEED TO EXPAND THE BED SEARCH. HE IS ALSO AWARE THE PT MAY BE CLEARED FOR DISCHARGE OVER THE WEEKEND. PTS CURRENT DC PLAN IS STR PENDING BED OFFER
[2020-09-20 16:49] LABS: Glucose, Whole Blood 245 mg/dL (60-115)
[2020-09-20 21:37] LABS: Glucose, Whole Blood 232 mg/dL (60-115)
[2020-09-21] VITALS (10 sets, daily range): BP systolic 94–106; BP diastolic 48–74; PULSE 68–81; RESP 14–17; TEMP 36.3–37.1; O2SAT 93–99
[2020-09-21] MEDS: 0.9 % Sodium Chloride Flush 3 ML SYRINGE IVFLUSH ×3 (02:14→14:38)
[2020-09-21 07:06] LABS: MANUAL DIFF FLAG NO
[2020-09-21 07:24] LABS: Basophils Percent Auto 0.7 % (0-2); Eosinophils Absolute Auto 0.1 X10*3/uL (0.0-0.4); Eosinophils Percent Auto 2.3 % (0-4); Hematocrit 22.4 % (42-52); Hemoglobin 7.4 g/dl (14.0-18.0); Imm Gran Abs Auto 0.01 X10*3/uL (0.00-0.03); Imm Gran Pct Auto 0.3 % (0.0-0.4); Lymphocytes Absolute Auto 0.9 X10*3/uL (1.2-4.9); Lymphocytes Percent Auto 29.5 % (20-40); Mean Corpuscular Hemoglobin 31.5 pg (27.0-33.0); Mean Corpuscular Volume 95.3 fL (80-98); Mean Platelet Volume 10.9 fL (9.4-12.4); Monocytes Absolute Auto 0.5 X10*3/uL (0.1-1.2); Monocytes Percent Auto 17.4 % (2-11); Neutrophils Absolute Auto 1.5 X10*3/uL (2.0-8.3); Neutrophils Percent Auto 49.8 % (45-73); Red Blood Count 2.35 X10*6/uL (4.60-5.80)
[2020-09-21 07:27] LABS: Platelet Count 49 X10*3/uL (160-400)
[2020-09-21 07:50] LABS: Anion Gap 12 (12-20); Blood Urea Nitrogen 7 mg/dL (9-16); Calcium 7.4 mg/dL (8.4-10.2); Carbon Dioxide 24 mmol/L (22-29); Chloride 103 mmol/L (96-108); Creatinine Clr Calc Pharmacy 108.3; Estimated Glomerular Filt Rate > 60; Glucose Random 213 mg/dL (60-115); Potassium 4.6 mmol/L (3.3-5.1); Sodium 134 mmol/L (135-145)
[2020-09-21 08:26] LABS: Glucose, Whole Blood 261 mg/dL (60-115)
--- NOTE | 2020-09-21 08:27 | HO.PM.IMPN ---
Subjective Subjective Date of Service: 09/21/20 Interval History: seen and examined this AM reports feeling better and that diarrhea has improved significantly ROS General - no fevers or chills Cardiovascular - no chest pain Respiratory - no shortness of breath or cough Abdominal- no abdominal pain, nausea, vomiting, diarrhea improved Physical Exam Vital Signs: Vital Signs: Last Vital Signs Temp 97.3 F 09/21/20 07:38 Pulse 68 09/21/20 07:38 Resp 17 09/21/20 07:38 BP 101/60 09/21/20 07:38 Pulse Ox 99 09/21/20 07:38 Body Mass Index 25.0 Const: Other: General - no acute distress, appears comfortable Cardiovascular - regular rate and rhythm, S1-S2 Lungs - normal respiratory effort, clear to auscultation bilaterally, no wheezing Abdomen - soft, nontender, no rebound or guarding Extremities - no edema bilaterally Neuro - awake and alert, no focal deficits Objective Data Current Medications Generic Name Dose Route Start Last Admin Trade Name Freq PRN Reason Stop Dose Admin Acetaminophen 650 mg 09/12/20 23:13 Acetaminophen 325 Mg Tablet PO Q6H PRN Pain, Mild (Pain Scale 1-3) Docusate Sodium 100 mg 09/12/20 23:13 Docusate Sodium 100 Mg Capsule PO DAILY PRN Constipation Folic Acid 1 mg 09/16/20 09:00 09/20/20 07:35 Folic Acid 1 Mg Tablet PO 1 mg DAILY JOSE Administration Gabapentin 400 mg 09/13/20 09:00 09/20/20 22:10 Gabapentin 400 Mg Capsule PO 400 mg TID JOSE Administration Insulin Human Lispro 0 unit 09/13/20 16:30 09/20/20 22:09 Insulin Lispro 100 Unit/Ml 3 Ml Vial SUBCUT 4 unit QIDACHS JOSE Administration Protocol Loperamide HCl 4 mg 09/20/20 09:40 09/20/20 11:57 Loperamide Hcl 2 Mg Capsule PO 4 mg Q6H PRN Administration Diarrhea Magnesium Oxide 400 mg 09/17/20 17:30 09/20/20 17:20 Magnesium Oxide 400 Mg Tablet PO 400 mg BIDPC JOSE Administration Midodrine 5 mg 09/20/20 15:00 09/20/20 22:08 Midodrine Hcl 5 Mg Tablet PO 5 mg TID JOSE Administration Ondansetron HCl 4 mg 09/12/20 23:13 09/20/20 11:57 Ondansetron Hcl 4 Mg/2 Ml Vial IVPUSH 4 mg Q8H PRN Administration Nausea and Vomiting Pharmacy Consult 1 each 09/12/20 17:11 Consult Rx Perform Med Rec MISCELLANE ONCE PRN Consult order Sodium Chloride 3 ml 09/13/20 00:00 09/21/20 02:14 0.9 % Sodium Chloride Flush 3 Ml Syringe IVFLUSH 3 ml QSHIFT JOSE Administration Thiamine HCl 100 mg 09/19/20 09:00 09/20/20 07:35 Thiamine Hcl 100 Mg Tablet PO 100 mg DAILY JOSE Administration Labs CBC & Chem 7: 09/21/20 06:28 09/21/20 06:28 Microbiology Microbiology Results: Microbiology 09/12/20 18:08 Blood - Venous Blood Culture - Final No growth after 5 days. 09/12/20 17:23 Blood - Venous Blood Culture - Final No growth after 5 days. Assessment and Plan (1) LIANA (acute kidney injury): Status: Acute (2) Acute pancreatitis: Status: Acute Assessment and Plan: This is a 60-year-old male with past medical history of alcohol abuse, diabetes who presented to the hospital after being found disheveled in his home on the floor complaining of abd pain 1. Acute alcoholic pancreatitis resolved tolerating diet 2. Diarrhea c. diff ruled out prn imodium improved 2. Pancytopenia with severe thrombocytopenia hematology input appreciated suspected secondary to chronic alcoholism relatively stable 3. Anemia likely due to liver dx no evidence of acute gi bleed at this time stable 4. LIANA Resolved 5. hypokalemia, hypomagnesemia K normalized, Mag pending -- will replete as necessary 6. etoh dependence monitor ciwa, no signs of withdrawal at this time 7. Dysphagia being followed by speech - advance per their recs 8. diarrhea c. diff negative imodium prn 9. weakness pt evaluation DVT prophylaxis- mechanical due to thrombocytopenia dispo: STR when bed available
[2020-09-21] MEDS: Magnesium Oxide 400 MG TABLET PO ×2 (08:41→17:16)
[2020-09-21] MEDS: Insulin Lispro 100 UNIT/ML 3 ML VIAL SUBCUT ×4 (08:41→21:08)
[2020-09-21] MEDS: Gabapentin 400 MG CAPSULE PO ×3 (08:41→21:07)
[2020-09-21] MEDS: Thiamine HCL 100 MG TABLET PO (08:42)
[2020-09-21] MEDS: Midodrine HCl 5 MG TABLET PO ×3 (08:42→21:09)
[2020-09-21 08:44] LABS: Magnesium 1.5 mg/dL (1.6-2.6)
[2020-09-21] MEDS: Omeprazole 20 MG CAPSULE.DR PO (09:18)
--- NOTE | 2020-09-21 10:31 | MHC.CM.PN ---
PATIENT OFFERED A BED AT [facility]; HOWEVER, NO ABILITY TO OBTAIN AUTH.OVER WEEKEND. THIS SCRIPT MANAGER ATTEMPTED TO SPEAK WITH PATIENT, BUT HE IS NOT RESPONDING TO VERBAL ATTEMPTS TO WAKE. AVOIDABLE DELAY RECORDED. NO OTHER BED OFFERS HAVE BEEN MADE
[2020-09-21 11:49] LABS: Glucose, Whole Blood 283 mg/dL (60-115)
[2020-09-21 16:48] LABS: Glucose, Whole Blood 235 mg/dL (60-115)
[2020-09-21 20:34] LABS: Glucose, Whole Blood 303 mg/dL (60-115)
[2020-09-21] MEDS: QUEtiapine Fumarate 100 MG TABLET PO (21:08)
[2020-09-22] VITALS (10 sets, daily range): BP systolic 94–131; BP diastolic 52–70; PULSE 69–89; RESP 16–19; TEMP 36.4–37.2; O2SAT 95–99
[2020-09-22] MEDS: 0.9 % Sodium Chloride Flush 3 ML SYRINGE IVFLUSH ×4 (01:05→21:27)
[2020-09-22] MEDS: Omeprazole 20 MG CAPSULE.DR PO (06:23)
[2020-09-22 07:49] LABS: Glucose, Whole Blood 194 mg/dL (60-115)
[2020-09-22] MEDS: Insulin Lispro 100 UNIT/ML 3 ML VIAL SUBCUT ×3 (09:57→21:24)
[2020-09-22] MEDS: Thiamine HCL 100 MG TABLET PO (09:58)
[2020-09-22] MEDS: Magnesium Oxide 400 MG TABLET PO ×2 (09:58→16:41)
[2020-09-22] MEDS: Midodrine HCl 5 MG TABLET PO ×3 (10:00→21:25)
[2020-09-22] MEDS: Folic Acid 1 MG TABLET PO (10:00)
[2020-09-22] MEDS: Gabapentin 400 MG CAPSULE PO ×3 (10:00→21:25)
--- NOTE | 2020-09-22 11:19 | HO.PM.IMPN ---
Subjective Subjective Date of Service: 09/22/20 Interval History: seen and examined this AM face timing with his family reports he slept well last night ROS General - no fevers or chills Cardiovascular - no chest pain Respiratory - no shortness of breath or cough Abdominal- no abdominal pain, nausea, vomiting, diarrhea improved Physical Exam Vital Signs: Vital Signs: Last Vital Signs Temp 97.5 F 09/22/20 07:30 Pulse 71 09/22/20 10:00 Resp 16 09/22/20 07:30 BP 113/52 L 09/22/20 10:00 Pulse Ox 96 09/22/20 07:30 Body Mass Index 25.0 Const: Other: General - no acute distress, appears comfortable Cardiovascular - regular rate and rhythm, S1-S2 Lungs - normal respiratory effort, clear to auscultation bilaterally, no wheezing Abdomen - soft, nontender, no rebound or guarding Extremities - no edema bilaterally Neuro - awake and alert, no focal deficits Objective Data Current Medications Generic Name Dose Route Start Last Admin Trade Name Freq PRN Reason Stop Dose Admin Acetaminophen 650 mg 09/12/20 23:13 Acetaminophen 325 Mg Tablet PO Q6H PRN Pain, Mild (Pain Scale 1-3) Docusate Sodium 100 mg 09/12/20 23:13 Docusate Sodium 100 Mg Capsule PO DAILY PRN Constipation Folic Acid 1 mg 09/16/20 09:00 09/22/20 10:00 Folic Acid 1 Mg Tablet PO 1 mg DAILY JOSE Administration Gabapentin 400 mg 09/13/20 09:00 09/22/20 10:00 Gabapentin 400 Mg Capsule PO 400 mg TID JOSE Administration Insulin Human Lispro 0 unit 09/13/20 16:30 09/22/20 09:57 Insulin Lispro 100 Unit/Ml 3 Ml Vial SUBCUT 2 unit QIDACHS JOSE Administration Protocol Loperamide HCl 4 mg 09/20/20 09:40 09/20/20 11:57 Loperamide Hcl 2 Mg Capsule PO 4 mg Q6H PRN Administration Diarrhea Magnesium Oxide 400 mg 09/17/20 17:30 09/22/20 09:58 Magnesium Oxide 400 Mg Tablet PO 400 mg BIDPC JOSE Administration Midodrine 5 mg 09/20/20 15:00 09/22/20 10:00 Midodrine Hcl 5 Mg Tablet PO 5 mg TID JOSE Administration Omeprazole 20 mg 09/21/20 09:00 09/22/20 06:23 Omeprazole 20 Mg Capsule. PO 20 mg DAILY@0630 JOSE Administration Ondansetron HCl 4 mg 09/12/20 23:13 09/20/20 11:57 Ondansetron Hcl 4 Mg/2 Ml Vial IVPUSH 4 mg Q8H PRN Administration Nausea and Vomiting Pharmacy Consult 1 each 09/12/20 17:11 Consult Rx Perform Med Rec MISCELLANE ONCE PRN Consult order Quetiapine Fumarate 100 mg 09/21/20 21:00 09/21/20 21:08 Quetiapine Fumarate 100 Mg Tablet PO 100 mg BEDTIME JOSE Administration Sodium Chloride 3 ml 09/13/20 00:00 09/22/20 09:58 0.9 % Sodium Chloride Flush 3 Ml Syringe IVFLUSH 3 ml QSHIFT JOSE Administration Thiamine HCl 100 mg 09/19/20 09:00 09/22/20 09:58 Thiamine Hcl 100 Mg Tablet PO 100 mg DAILY JOSE Administration Labs CBC & Chem 7: 09/21/20 06:28 09/21/20 06:28 Microbiology Microbiology Results: Microbiology 09/12/20 18:08 Blood - Venous Blood Culture - Final No growth after 5 days. 09/12/20 17:23 Blood - Venous Blood Culture - Final No growth after 5 days. Assessment and Plan (1) LIANA (acute kidney injury): Status: Acute (2) Acute pancreatitis: Status: Acute Assessment and Plan: This is a 60-year-old male with past medical history of alcohol abuse, diabetes who presented to the hospital after being found disheveled in his home on the floor complaining of abd pain 1. Acute alcoholic pancreatitis resolved tolerating diet alcohol cessation as been advised. 2. Diarrhea c. diff ruled out prn imodium resolved 3. Pancytopenia with severe thrombocytopenia/anemia hematology input appreciated suspected secondary to chronic alcoholism relatively stable 4. LIANA Resolved 5. hypokalemia, hypomagnesemia resolved 6. etoh dependence monitor ciwa, no signs of withdrawal at this time 7. Dysphagia being followed by speech - advance per their recs 8. weakness pt evaluation 9. History of bipolar was previously on multiple meds, which he stopped for a month or two (per his own admission / step-daughter report) restarted his seroquel at lower dose -- 100mg will need outpatient f/u with his psychiatrist DVT prophylaxis- mechanical due to thrombocytopenia dispo: STR when bed available
[2020-09-22 11:58] LABS: Glucose, Whole Blood 187 mg/dL (60-115)
[2020-09-22 16:45] LABS: Glucose, Whole Blood 374 mg/dL (60-115)
[2020-09-22 20:37] LABS: Glucose, Whole Blood 285 mg/dL (60-115)
[2020-09-22] MEDS: QUEtiapine Fumarate 100 MG TABLET PO (21:25)
[2020-09-23] VITALS (10 sets, daily range): BP systolic 98–137; BP diastolic 61–90; PULSE 70–107; RESP 16–18; TEMP 36.6–38.4; O2SAT 93–98
[2020-09-23] MEDS: Omeprazole 20 MG CAPSULE.DR PO (04:58)
--- NOTE | 2020-09-23 07:48 | PC.NURSE ---
pt states he rolled over on his IV and it came loose and then was itchy so he removed it. Pt currently has no IV access. He is awake and oriented.
[2020-09-23 08:07] LABS: Glucose, Whole Blood 221 mg/dL (60-115)
[2020-09-23] MEDS: Insulin Lispro 100 UNIT/ML 3 ML VIAL SUBCUT ×4 (08:33→21:02)
--- NOTE | 2020-09-23 09:11 | MHC.CM.PN ---
Addendum entered by Brittney Srinivasan 09/23/20 15:48: [facility] clinically accepting but received word and spoke with insurance company he does not qualify under the insurance criteria for inpatient short term rehab, patient alvin remain here overnight , i spoke with katja from the cares team she will referral to [facility] for possible alternative pans , i also spoke with patients father maría miller , he would not be able to tkae hannah into his home as he is carrying for a disabled daughter and her two autistic children, no other family members would be able to take him into their homes, family is now thinking secondary to his health they do not want to section 35 hi,m Original Note: NURSE DIRECTOR DRUG NOTE ELECTRONIC MEDICAL RECORD REVIEWED ALONG WITH CASE DISCUSSED WITH INSURANCE VERIFICATION CLERK AND HOSPITLAIST , [facility] CLINICAL ACCEPTANCE AND AWAITING INSURANCE AUTHORIZATION , CASE DISCUSSED WITH PHYSICAL THERAPIST AND RECOMMENDING WHEECHAIR VAN FOR TRANSPORTATION TO [facility] RAPID COVID 19 TEST TO BE ORDERED, AND PATIENT WILL NEEDED ANTICIPATED LENGTH OF STAY LENGTH OF STAY AT [facility] LESS THAN 30 DAYS ANTICIPATE DISCHARGE TODAY TO [facility] AE\WAITING INS AUTHORIZATION FOR DISCHARGE TODAY ACTION WHEEL-CHAIR VAN TO PROVIDE TRANSPORT
[2020-09-23] MEDS: Midodrine HCl 5 MG TABLET PO ×3 (10:18→21:03)
[2020-09-23] MEDS: Magnesium Oxide 400 MG TABLET PO ×2 (10:18→17:21)
[2020-09-23] MEDS: Folic Acid 1 MG TABLET PO (10:18)
[2020-09-23] MEDS: Gabapentin 400 MG CAPSULE PO ×3 (10:18→21:02)
[2020-09-23] MEDS: Thiamine HCL 100 MG TABLET PO (10:18)
[2020-09-23 12:13] LABS: Glucose, Whole Blood 401 mg/dL (60-115)
[2020-09-23 12:23] LABS: COVID-19 Test Negative (Negative); IDNOW Serial# 9DD0AD1C
--- NOTE | 2020-09-23 13:21 | PM.DS ---
DS: Providers Provider Date of Service: 09/23/20 Date of admission: 09/12/20 23:13 Primary care physician: Unknown Physician Consults: 09/12/20 20:34 Consult to Care Team Stat Comment: Reason for consultation: daughter seeking section 35, alcohol abuse 09/13/20 05:45 Consult to Gastroenterology Routine Consulting Provider: Dean Pineda Reason for consultation: complicated pancreatitis Has provider been notified: No 09/13/20 10:49 Consult to Care Team Routine Comment: Reason for consultation: etoh 09/16/20 09:25 Consult to Hematology / Oncology Routine Consulting Provider: Chante Maza Reason for consultation: pancytopenia, severe thrombocytopenia, ETOH, but no cirhrosis/splenomegaly DS: Diagnosis Discharge Diagnosis (1) LIANA (acute kidney injury): Status: Acute (2) Acute pancreatitis: Status: Acute DS: Medications Discharge Medications Home Medications: Previous Rx's Medication Instructions Recorded insulin lispro 100 unit/mL 12 unit SUBCUT TID 30 Days #15 ml 05/31/20 subcutaneous pen gabapentin 400 mg capsule 400 mg PO TID #90 cap 07/02/20 cholecalciferol (vitamin D3) 25 25 mcg PO DAILY #90 cap 08/12/20 mcg (1,000 unit) capsule Basaglar KwikPen U-100 Insulin 10 unit SUBCUT QPM #0 ml 09/23/20 magnesium oxide 400 mg PO BIDPC #1 tab 09/23/20 midodrine 5 mg PO TID #1 tab 09/23/20 quetiapine 100 mg PO BEDTIME #1 tab 09/23/20 DS: Summary Hospital Course Hospital Course: Patient presented with Weakness and lethargy. He was diagnosed with acute pancreatitis secondary to alcohol abuse and dependence. He also was noted to have electrolyte abnormalities including hyperkalemia and hypermagnesemia. He also had acute kidney injury. He was treated with aggressive fluid resuscitation, bowel rest and IV pain control. His diet was slowly advanced from clear liquids to solids which he is tolerating at the time of discharge. Who recommended ground solids and nectar thick liquids. If thin liquids are used, aspiration precaution should be followed and he should be supervised. His electrolyte abnormalities were repleted as necessary. His acute kidney injury did improve and resolved. He did have multiple abnormalities on his CBC as well. He was evaluated by Hematology who felt that these were likely secondary to bone marrow suppression from his chronic alcohol abuse. He did require a transfusion of blood in his H&H remained stable after this. In regards to his known history of bipolar/depression patient admitted that he had been off of his medications for at least 1 if not 2 months. Seroquel 100 mg at bedtime has been initiated hospital and can be continued. Time Spent with Patient Time attestation: Total time spent providing and/or coordinating discharge services: Discharge coordination time: Greater than 30 minutes Physical Exam Vital Signs: Vital Signs: Last Vital Signs Temp 97.9 F 09/23/20 11:20 Pulse 80 09/23/20 11:20 Resp 18 09/23/20 11:20 BP 111/66 09/23/20 11:20 Pulse Ox 94 09/23/20 11:20 Body Mass Index 25.0 Const: Other: General - no acute distress, appears comfortable Cardiovascular - regular rate and rhythm, S1-S2 Lungs - normal respiratory effort, clear to auscultation bilaterally, no wheezing Abdomen - soft, nontender, no rebound or guarding Extremities - no edema bilaterally Neuro - awake and alert, no focal deficits DS: Data Data Completed and Pending Labs on day of discharge: Laboratory Tests 09/12/20 09/12/20 09/12/20 17:10 17:23 17:23 WBC 8.2 RBC 4.21 L Hgb 13.4 L Hct 37.1 L MCV 88.1 MCH 31.8 MCHC 36.1 H RDW 13.9 Plt Count 61 L D MPV 9.4 Immature Gran % (Auto) 0.7 H Neut % (Auto) 82.3 H Lymph % (Auto) 11.4 L [place] % (Auto) 5.5 Eos % (Auto) 0.1 Baso % (Auto) 0.0 Lymph # (Auto) 0.9 L [place] # (Auto) 0.5 Eos # (Auto) 0.0 Baso # (Auto) 0.0 Abs Immat Gran (auto) 0.06 H Absolute Neuts (auto) 6.7 Absolute Nucleated RBC 0.020 H Nucleated RBC % (auto) 0.2 Smear Tech's Comments Smear Path Review Absolute Retic Percent Retic Immature Retic Fraction Retic Hgb Equivalent PT 13.7 H INR 1.2 H Fibrinogen VBG pH VBG pCO2 VBG pO2 VBG HCO3 VBG O2 Saturation VBG Base Excess Sodium Potassium Chloride Carbon Dioxide Anion Gap BUN Creatinine Estim Creat Clear Calc Estimated GFR POC Glucose 532 H* Random Glucose Fasting Glucose Osmolality Lactic Acid Lactic Acid Fup @ 2Hr Lactic Acid Fup @ 4Hr Calcium Phosphorus Magnesium Iron TIBC % Saturation Unsat Iron Binding Total Bilirubin Direct Bilirubin AST ALT Alkaline Phosphatase Lactate Dehydrogenase Total Creatine Kinase Troponin I High Sens Total Protein Albumin Lipase Vitamin B12 Folate Urine Color Urine Appearance Urine pH Ur Specific [place] Urine Protein Urine Glucose (UA) Urine Ketones Urine Blood Urine Nitrite Ur Leukocyte Esterase Urine RBC Urine WBC Ur Squamous Epith Cells Amorphous Sediment Urine Bacteria Stool Occult Blood Urine Opiates Screen Ur Barbiturates Screen Ur Phencyclidine Scrn Ur Amphetamines Screen U Benzodiazepines Scrn Urine Cocaine Screen U Marijuana (THC) Screen Ethyl Alcohol Acetone, Qual C. difficile Toxin A&B C. difficile Antigen C. difficile Interpret COVID-19 ([facility]) COVID-19 Clin Com Blood Type Antibody Screen 09/12/20 09/12/20 09/12/20 17:23 17:23 17:23 WBC RBC Hgb Hct MCV MCH MCHC RDW Plt Count MPV Immature Gran % (Auto) Neut % (Auto) Lymph % (Auto) [place] % (Auto) Eos % (Auto) Baso % (Auto) Lymph # (Auto) [place] # (Auto) Eos # (Auto) Baso # (Auto) Abs Immat Gran (auto) Absolute Neuts (auto) Absolute Nucleated RBC Nucleated RBC % (auto) Smear Tech's Comments Smear Path Review Absolute Retic Percent Retic Immature Retic Fraction Retic Hgb Equivalent PT INR Fibrinogen VBG pH VBG pCO2 VBG pO2 VBG HCO3 VBG O2 Saturation VBG Base Excess Sodium 127 L Potassium 3.6 Chloride 66 L D Carbon Dioxide 26 Anion Gap 39 H BUN 62 H D Creatinine 2.36 H Estim Creat Clear Calc 32.6 Estimated GFR 28 POC Glucose Random Glucose 641 H* Fasting Glucose Osmolality Lactic Acid 3.6 H* Lactic Acid Fup @ 2Hr Lactic Acid Fup @ 4Hr Calcium 9.8 D Phosphorus 5.2 H Magnesium 2.8 H Iron TIBC % Saturation Unsat Iron Binding Total Bilirubin 1.7 H Direct Bilirubin 1.3 H AST 23 D ALT 27 Alkaline Phosphatase 102 Lactate Dehydrogenase Total Creatine Kinase 19 L Troponin I High Sens 10.6 Total Protein 8.7 H Albumin 4.6 Lipase Vitamin B12 Folate Urine Color Urine Appearance Urine pH Ur Specific [place] Urine Protein Urine Glucose (UA) Urine Ketones Urine Blood Urine Nitrite Ur Leukocyte Esterase Urine RBC Urine WBC Ur Squamous Epith Cells Amorphous Sediment Urine Bacteria Stool Occult Blood Urine Opiates Screen Ur Barbiturates Screen Ur Phencyclidine Scrn Ur Amphetamines Screen U Benzodiazepines Scrn Urine Cocaine Screen U Marijuana (THC) Screen Ethyl Alcohol Acetone, Qual Moderate H C. difficile Toxin A&B C. difficile Antigen C. difficile Interpret COVID-19 ([facility]) COVID-19 Clin Com Blood Type Antibody Screen 09/12/20 09/12/20 09/12/20 17:23 17:23 17:23 WBC RBC Hgb Hct MCV MCH MCHC RDW Plt Count MPV Immature Gran % (Auto) Neut % (Auto) Lymph % (Auto) [place] % (Auto) Eos % (Auto) Baso % (Auto) Lymph # (Auto) [place] # (Auto) Eos # (Auto) Baso # (Auto) Abs Immat Gran (auto) Absolute Neuts (auto) Absolute Nucleated RBC Nucleated RBC % (auto) Smear Tech's Comments Smear Path Review Absolute Retic Percent Retic Immature Retic Fraction Retic Hgb Equivalent PT INR Fibrinogen VBG pH VBG pCO2 VBG pO2 VBG HCO3 VBG O2 Saturation VBG Base Excess Sodium Potassium Chloride Carbon Dioxide Anion Gap BUN Creatinine Estim Creat Clear Calc Estimated GFR POC Glucose Random Glucose Fasting Glucose Osmolality 335 H Lactic Acid Lactic Acid Fup @ 2Hr Lactic Acid Fup @ 4Hr Calcium Phosphorus Magnesium Iron TIBC % Saturation Unsat Iron Binding Total Bilirubin Direct Bilirubin AST ALT Alkaline Phosphatase Lactate Dehydrogenase Total Creatine Kinase Troponin I High Sens Total Protein Albumin Lipase Vitamin B12 Folate Urine Color Urine Appearance Urine pH Ur Specific [place] Urine Protein Urine Glucose (UA) Urine Ketones Urine Blood Urine Nitrite Ur Leukocyte Esterase Urine RBC Urine WBC Ur Squamous Epith Cells Amorphous Sediment Urine Bacteria Stool Occult Blood Urine Opiates Screen Ur Barbiturates Screen Ur Phencyclidine Scrn Ur Amphetamines Screen U Benzodiazepines Scrn Urine Cocaine Screen U Marijuana (THC) Screen Ethyl Alcohol < 10 Acetone, Qual C. difficile Toxin A&B C. difficile Antigen C. difficile Interpret COVID-19 ([facility]) Negative COVID-19 Clin Com See Note Blood Type Antibody Screen 09/12/20 09/12/20 09/12/20 19:02 19:02 20:26 WBC RBC Hgb Hct MCV MCH MCHC RDW Plt Count MPV Immature Gran % (Auto) Neut % (Auto) Lymph % (Auto) [place] % (Auto) Eos % (Auto) Baso % (Auto) Lymph # (Auto) [place] # (Auto) Eos # (Auto) Baso # (Auto) Abs Immat Gran (auto) Absolute Neuts (auto) Absolute Nucleated RBC Nucleated RBC % (auto) Smear Tech's Comments Smear Path Review Absolute Retic Percent Retic Immature Retic Fraction Retic Hgb Equivalent PT INR Fibrinogen VBG pH 7.53 H VBG pCO2 24 VBG pO2 191 VBG HCO3 21 VBG O2 Saturation 99.0 VBG Base Excess -0.1 Sodium Potassium Chloride Carbon Dioxide Anion Gap BUN Creatinine Estim Creat Clear Calc Estimated GFR POC Glucose Random Glucose Fasting Glucose Osmolality Lactic Acid Lactic Acid Fup @ 2Hr Lactic Acid Fup @ 4Hr Calcium Phosphorus Magnesium Iron TIBC % Saturation Unsat Iron Binding Total Bilirubin Direct Bilirubin AST ALT Alkaline Phosphatase Lactate Dehydrogenase Total Creatine Kinase Troponin I High Sens Total Protein Albumin Lipase Vitamin B12 Folate Urine Color YELLOW Urine Appearance CLEAR Urine pH 5.5 Ur Specific [place] 1.020 Urine Protein NEG Urine Glucose (UA) >=1000 H Urine Ketones >=80 Urine Blood 1+ H Urine Nitrite NEG Ur Leukocyte Esterase NEG Urine RBC 0-2 Urine WBC 0 Ur Squamous Epith Cells TRACE Amorphous Sediment 1+ Urine Bacteria NONE Stool Occult Blood Urine Opiates Screen Not Detected Ur Barbiturates Screen Not Detected Ur Phencyclidine Scrn Not Detected Ur Amphetamines Screen Not Detected U Benzodiazepines Scrn Not Detected Urine Cocaine Screen Not Detected U Marijuana (THC) Screen Not Detected Ethyl Alcohol Acetone, Qual C. difficile Toxin A&B C. difficile Antigen C. difficile Interpret COVID-19 ([facility]) COVID-19 Clin Com Blood Type Antibody Screen 09/12/20 09/12/20 09/12/20 20:26 20:26 20:56 WBC RBC Hgb Hct MCV MCH MCHC RDW Plt Count MPV Immature Gran % (Auto) Neut % (Auto) Lymph % (Auto) [place] % (Auto) Eos % (Auto) Baso % (Auto) Lymph # (Auto) [place] # (Auto) Eos # (Auto) Baso # (Auto) Abs Immat Gran (auto) Absolute Neuts (auto) Absolute Nucleated RBC Nucleated RBC % (auto) Smear Tech's Comments Smear Path Review Absolute Retic Percent Retic Immature Retic Fraction Retic Hgb Equivalent PT INR Fibrinogen VBG pH VBG pCO2 VBG pO2 VBG HCO3 VBG O2 Saturation VBG Base Excess Sodium Potassium Chloride Carbon Dioxide Anion Gap BUN Creatinine Estim Creat Clear Calc Estimated GFR POC Glucose 380 H* Random Glucose Fasting Glucose Osmolality Lactic Acid Lactic Acid Fup @ 2Hr 3.2 H* Lactic Acid Fup @ 4Hr Calcium Phosphorus Magnesium Iron TIBC % Saturation Unsat Iron Binding Total Bilirubin Direct Bilirubin AST ALT Alkaline Phosphatase Lactate Dehydrogenase Total Creatine Kinase Troponin I High Sens 8.8 Total Protein Albumin Lipase Vitamin B12 Folate Urine Color Urine Appearance Urine pH Ur Specific [place] Urine Protein Urine Glucose (UA) Urine Ketones Urine Blood Urine Nitrite Ur Leukocyte Esterase Urine RBC Urine WBC Ur Squamous Epith Cells Amorphous Sediment Urine Bacteria Stool Occult Blood Urine Opiates Screen Ur Barbiturates Screen Ur Phencyclidine Scrn Ur Amphetamines Screen U Benzodiazepines Scrn Urine Cocaine Screen U Marijuana (THC) Screen Ethyl Alcohol Acetone, Qual C. difficile Toxin A&B C. difficile Antigen C. difficile Interpret COVID-19 ([facility]) COVID-19 Clin Com Blood Type Antibody Screen 09/12/20 09/12/20 09/12/20 21:35 23:49 23:51 WBC RBC Hgb Hct MCV MCH MCHC RDW Plt Count MPV Immature Gran % (Auto) Neut % (Auto) Lymph % (Auto) [place] % (Auto) Eos % (Auto) Baso % (Auto) Lymph # (Auto) [place] # (Auto) Eos # (Auto) Baso # (Auto) Abs Immat Gran (auto) Absolute Neuts (auto) Absolute Nucleated RBC Nucleated RBC % (auto) Smear Tech's Comments Smear Path Review Absolute Retic Percent Retic Immature Retic Fraction Retic Hgb Equivalent PT INR Fibrinogen VBG pH VBG pCO2 VBG pO2 VBG HCO3 VBG O2 Saturation VBG Base Excess Sodium 133 L Potassium 2.4 L* D Chloride 84 L D Carbon Dioxide 25 Anion Gap 26 H BUN 53 H Creatinine 1.75 H Estim Creat Clear Calc 43.9 Estimated GFR 40 POC Glucose 303 H Random Glucose 351 H* Fasting Glucose Osmolality Lactic Acid Lactic Acid Fup @ 2Hr Lactic Acid Fup @ 4Hr 1.8 Calcium 8.0 L D Phosphorus Magnesium Iron TIBC % Saturation Unsat Iron Binding Total Bilirubin Direct Bilirubin AST ALT Alkaline Phosphatase Lactate Dehydrogenase Total Creatine Kinase Troponin I High Sens Total Protein Albumin Lipase Vitamin B12 Folate Urine Color Urine Appearance Urine pH Ur Specific [place] Urine Protein Urine Glucose (UA) Urine Ketones Urine Blood Urine Nitrite Ur Leukocyte Esterase Urine RBC Urine WBC Ur Squamous Epith Cells Amorphous Sediment Urine Bacteria Stool Occult Blood Urine Opiates Screen Ur Barbiturates Screen Ur Phencyclidine Scrn Ur Amphetamines Screen U Benzodiazepines Scrn Urine Cocaine Screen U Marijuana (THC) Screen Ethyl Alcohol Acetone, Qual C. difficile Toxin A&B C. difficile Antigen C. difficile Interpret COVID-19 ([facility]) COVID-19 Clin Com Blood Type Antibody Screen 09/13/20 09/13/20 09/13/20 05:17 05:27 05:27 WBC 6.6 RBC 3.17 L D Hgb 10.2 L D Hct 28.1 L D MCV 88.6 MCH 32.2 MCHC 36.3 H RDW 13.8 Plt Count 27 L D MPV 8.7 L Immature Gran % (Auto) 0.8 H Neut % (Auto) 76.7 H Lymph % (Auto) 15.5 L [place] % (Auto) 6.2 Eos % (Auto) 0.6 Baso % (Auto) 0.2 Lymph # (Auto) 1.0 L [place] # (Auto) 0.4 Eos # (Auto) 0.0 Baso # (Auto) 0.0 Abs Immat Gran (auto) 0.05 H Absolute Neuts (auto) 5.1 Absolute Nucleated RBC 0.000 Nucleated RBC % (auto) 0.0 Smear Tech's Comments Smear Path Review Absolute Retic Percent Retic Immature Retic Fraction Retic Hgb Equivalent PT INR Fibrinogen VBG pH VBG pCO2 VBG pO2 VBG HCO3 VBG O2 Saturation VBG Base Excess Sodium 135 Potassium 2.8 L Chloride 88 L Carbon Dioxide 30 H Anion Gap 21 H BUN 44 H Creatinine 1.54 H Estim Creat Clear Calc 49.9 Estimated GFR 46 POC Glucose 190 H Random Glucose 173 H D Fasting Glucose Osmolality Lactic Acid Lactic Acid Fup @ 2Hr Lactic Acid Fup @ 4Hr Calcium 8.2 L Phosphorus Magnesium Iron TIBC % Saturation Unsat Iron Binding Total Bilirubin 1.2 H Direct Bilirubin 0.9 H AST 19 ALT 17 Alkaline Phosphatase 70 D Lactate Dehydrogenase Total Creatine Kinase Troponin I High Sens Total Protein 6.3 L D Albumin 3.4 L D Lipase 1079 H Vitamin B12 Folate Urine Color Urine Appearance Urine pH Ur Specific [place] Urine Protein Urine Glucose (UA) Urine Ketones Urine Blood Urine Nitrite Ur Leukocyte Esterase Urine RBC Urine WBC Ur Squamous Epith Cells Amorphous Sediment Urine Bacteria Stool Occult Blood Urine Opiates Screen Ur Barbiturates Screen Ur Phencyclidine Scrn Ur Amphetamines Screen U Benzodiazepines Scrn Urine Cocaine Screen U Marijuana (THC) Screen Ethyl Alcohol Acetone, Qual C. difficile Toxin A&B C. difficile Antigen C. difficile Interpret COVID-19 ([facility]) COVID-19 Clin Com Blood Type Antibody Screen 09/13/20 09/13/20 09/13/20 07:51 11:30 15:37 WBC RBC Hgb Hct MCV MCH MCHC RDW Plt Count MPV Immature Gran % (Auto) Neut % (Auto) Lymph % (Auto) [place] % (Auto) Eos % (Auto) Baso % (Auto) Lymph # (Auto) [place] # (Auto) Eos # (Auto) Baso # (Auto) Abs Immat Gran (auto) Absolute Neuts (auto) Absolute Nucleated RBC Nucleated RBC % (auto) Smear Tech's Comments Smear Path Review Absolute Retic Percent Retic Immature Retic Fraction Retic Hgb Equivalent PT INR Fibrinogen VBG pH VBG pCO2 VBG pO2 VBG HCO3 VBG O2 Saturation VBG Base Excess Sodium Potassium Chloride Carbon Dioxide Anion Gap BUN Creatinine Estim Creat Clear Calc Estimated GFR POC Glucose 198 H 202 H 212 H Random Glucose Fasting Glucose Osmolality Lactic Acid Lactic Acid Fup @ 2Hr Lactic Acid Fup @ 4Hr Calcium Phosphorus Magnesium Iron TIBC % Saturation Unsat Iron Binding Total Bilirubin Direct Bilirubin AST ALT Alkaline Phosphatase Lactate Dehydrogenase Total Creatine Kinase Troponin I High Sens Total Protein Albumin Lipase Vitamin B12 Folate Urine Color Urine Appearance Urine pH Ur Specific [place] Urine Protein Urine Glucose (UA) Urine Ketones Urine Blood Urine Nitrite Ur Leukocyte Esterase Urine RBC Urine WBC Ur Squamous Epith Cells Amorphous Sediment Urine Bacteria Stool Occult Blood Urine Opiates Screen Ur Barbiturates Screen Ur Phencyclidine Scrn Ur Amphetamines Screen U Benzodiazepines Scrn Urine Cocaine Screen U Marijuana (THC) Screen Ethyl Alcohol Acetone, Qual C. difficile Toxin A&B C. difficile Antigen C. difficile Interpret COVID-19 ([facility]) COVID-19 Clin Com Blood Type Antibody Screen 09/13/20 09/14/20 09/14/20 19:23 05:05 05:05 WBC 5.5 RBC 3.08 L Hgb 9.6 L Hct 27.9 L MCV 90.6 MCH 31.2 MCHC 34.4 RDW 13.8 Plt Count 23 L MPV 9.6 Immature Gran % (Auto) 0.4 Neut % (Auto) 70.3 Lymph % (Auto) 21.6 [place] % (Auto) 5.1 Eos % (Auto) 2.4 Baso % (Auto) 0.2 Lymph # (Auto) 1.2 [place] # (Auto) 0.3 Eos # (Auto) 0.1 Baso # (Auto) 0.0 Abs Immat Gran (auto) 0.02 Absolute Neuts (auto) 3.9 Absolute Nucleated RBC 0.000 Nucleated RBC % (auto) 0.0 Smear Tech's Comments Smear Path Review Absolute Retic Percent Retic Immature Retic Fraction Retic Hgb Equivalent PT 13.6 H INR 1.1 Fibrinogen 375 VBG pH VBG pCO2 VBG pO2 VBG HCO3 VBG O2 Saturation VBG Base Excess Sodium Potassium Chloride Carbon Dioxide Anion Gap BUN Creatinine Estim Creat Clear Calc Estimated GFR POC Glucose 219 H Random Glucose Fasting Glucose Osmolality Lactic Acid Lactic Acid Fup @ 2Hr Lactic Acid Fup @ 4Hr Calcium Phosphorus Magnesium Iron TIBC % Saturation Unsat Iron Binding Total Bilirubin Direct Bilirubin AST ALT Alkaline Phosphatase Lactate Dehydrogenase Total Creatine Kinase Troponin I High Sens Total Protein Albumin Lipase Vitamin B12 Folate Urine Color Urine Appearance Urine pH Ur Specific [place] Urine Protein Urine Glucose (UA) Urine Ketones Urine Blood Urine Nitrite Ur Leukocyte Esterase Urine RBC Urine WBC Ur Squamous Epith Cells Amorphous Sediment Urine Bacteria Stool Occult Blood Urine Opiates Screen Ur Barbiturates Screen Ur Phencyclidine Scrn Ur Amphetamines Screen U Benzodiazepines Scrn Urine Cocaine Screen U Marijuana (THC) Screen Ethyl Alcohol Acetone, Qual C. difficile Toxin A&B C. difficile Antigen C. difficile Interpret COVID-19 ([facility]) COVID-19 Clin Com Blood Type Antibody Screen 09/14/20 09/14/20 09/14/20 05:05 05:05 07:31 WBC RBC Hgb Hct MCV MCH MCHC RDW Plt Count MPV Immature Gran % (Auto) Neut % (Auto) Lymph % (Auto) [place] % (Auto) Eos % (Auto) Baso % (Auto) Lymph # (Auto) [place] # (Auto) Eos # (Auto) Baso # (Auto) Abs Immat Gran (auto) Absolute Neuts (auto) Absolute Nucleated RBC Nucleated RBC % (auto) Smear Tech's Comments Smear Path Review Absolute Retic Percent Retic Immature Retic Fraction Retic Hgb Equivalent PT INR Fibrinogen VBG pH VBG pCO2 VBG pO2 VBG HCO3 VBG O2 Saturation VBG Base Excess Sodium 141 Potassium 2.9 L Chloride 96 Carbon Dioxide 28 Anion Gap 20 BUN 25 H Creatinine 1.17 Estim Creat Clear Calc 65.7 Estimated GFR > 60 POC Glucose 156 H Random Glucose Fasting Glucose 129 H Osmolality Lactic Acid Lactic Acid Fup @ 2Hr Lactic Acid Fup @ 4Hr Calcium 8.2 L Phosphorus Magnesium Iron TIBC % Saturation Unsat Iron Binding Total Bilirubin 0.8 Direct Bilirubin 0.7 H AST 20 ALT 12 Alkaline Phosphatase 62 Lactate Dehydrogenase Total Creatine Kinase Troponin I High Sens Total Protein 5.7 L Albumin 3.0 L Lipase Vitamin B12 1256 H Folate Urine Color Urine Appearance Urine pH Ur Specific [place] Urine Protein Urine Glucose (UA) Urine Ketones Urine Blood Urine Nitrite Ur Leukocyte Esterase Urine RBC Urine WBC Ur Squamous Epith Cells Amorphous Sediment Urine Bacteria Stool Occult Blood Urine Opiates Screen Ur Barbiturates Screen Ur Phencyclidine Scrn Ur Amphetamines Screen U Benzodiazepines Scrn Urine Cocaine Screen U Marijuana (THC) Screen Ethyl Alcohol Acetone, Qual C. difficile Toxin A&B C. difficile Antigen C. difficile Interpret COVID-19 ([facility]) COVID-19 Clin Com Blood Type Antibody Screen 09/14/20 09/14/20 09/14/20 11:32 16:20 20:12 WBC RBC Hgb Hct MCV MCH MCHC RDW Plt Count MPV Immature Gran % (Auto) Neut % (Auto) Lymph % (Auto) [place] % (Auto) Eos % (Auto) Baso % (Auto) Lymph # (Auto) [place] # (Auto) Eos # (Auto) Baso # (Auto) Abs Immat Gran (auto) Absolute Neuts (auto) Absolute Nucleated RBC Nucleated RBC % (auto) Smear Tech's Comments Smear Path Review Absolute Retic Percent Retic Immature Retic Fraction Retic Hgb Equivalent PT INR Fibrinogen VBG pH VBG pCO2 VBG pO2 VBG HCO3 VBG O2 Saturation VBG Base Excess Sodium Potassium Chloride Carbon Dioxide Anion Gap BUN Creatinine Estim Creat Clear Calc Estimated GFR POC Glucose 200 H 299 H 299 H Random Glucose Fasting Glucose Osmolality Lactic Acid Lactic Acid Fup @ 2Hr Lactic Acid Fup @ 4Hr Calcium Phosphorus Magnesium Iron TIBC % Saturation Unsat Iron Binding Total Bilirubin Direct Bilirubin AST ALT Alkaline Phosphatase Lactate Dehydrogenase Total Creatine Kinase Troponin I High Sens Total Protein Albumin Lipase Vitamin B12 Folate Urine Color Urine Appearance Urine pH Ur Specific [place] Urine Protein Urine Glucose (UA) Urine Ketones Urine Blood Urine Nitrite Ur Leukocyte Esterase Urine RBC Urine WBC Ur Squamous Epith Cells Amorphous Sediment Urine Bacteria Stool Occult Blood Urine Opiates Screen Ur Barbiturates Screen Ur Phencyclidine Scrn Ur Amphetamines Screen U Benzodiazepines Scrn Urine Cocaine Screen U Marijuana (THC) Screen Ethyl Alcohol Acetone, Qual C. difficile Toxin A&B C. difficile Antigen C. difficile Interpret COVID-19 ([facility]) COVID-19 Clin Com Blood Type Antibody Screen 09/15/20 09/15/20 09/15/20 08:57 11:16 14:52 WBC 3.7 L RBC 3.26 L Hgb 10.3 L Hct 29.9 L MCV 91.7 MCH 31.6 MCHC 34.4 RDW 14.1 Plt Count 29 L D MPV 9.9 Immature Gran % (Auto) 0.8 H Neut % (Auto) 67.5 Lymph % (Auto) 23.9 [place] % (Auto) 4.8 Eos % (Auto) 2.7 Baso % (Auto) 0.3 Lymph # (Auto) 0.9 L [place] # (Auto) 0.2 Eos # (Auto) 0.1 Baso # (Auto) 0.0 Abs Immat Gran (auto) 0.03 Absolute Neuts (auto) 2.5 Absolute Nucleated RBC 0.020 H Nucleated RBC % (auto) 0.5 H Smear Tech's Comments VERIFIED Smear Path Review Absolute Retic Percent Retic Immature Retic Fraction Retic Hgb Equivalent PT INR Fibrinogen VBG pH VBG pCO2 VBG pO2 VBG HCO3 VBG O2 Saturation VBG Base Excess Sodium Potassium Chloride Carbon Dioxide Anion Gap BUN Creatinine Estim Creat Clear Calc Estimated GFR POC Glucose 213 H 305 H Random Glucose Fasting Glucose Osmolality Lactic Acid Lactic Acid Fup @ 2Hr Lactic Acid Fup @ 4Hr Calcium Phosphorus Magnesium Iron TIBC % Saturation Unsat Iron Binding Total Bilirubin Direct Bilirubin AST ALT Alkaline Phosphatase Lactate Dehydrogenase Total Creatine Kinase Troponin I High Sens Total Protein Albumin Lipase Vitamin B12 Folate Urine Color Urine Appearance Urine pH Ur Specific [place] Urine Protein Urine Glucose (UA) Urine Ketones Urine Blood Urine Nitrite Ur Leukocyte Esterase Urine RBC Urine WBC Ur Squamous Epith Cells Amorphous Sediment Urine Bacteria Stool Occult Blood Urine Opiates Screen Ur Barbiturates Screen Ur Phencyclidine Scrn Ur Amphetamines Screen U Benzodiazepines Scrn Urine Cocaine Screen U Marijuana (THC) Screen Ethyl Alcohol Acetone, Qual C. difficile Toxin A&B C. difficile Antigen C. difficile Interpret COVID-19 ([facility]) COVID-19 Clin Com Blood Type Antibody Screen 09/15/20 09/15/20 09/15/20 14:52 17:01 19:40 WBC RBC Hgb Hct MCV MCH MCHC RDW Plt Count MPV Immature Gran % (Auto) Neut % (Auto) Lymph % (Auto) [place] % (Auto) Eos % (Auto) Baso % (Auto) Lymph # (Auto) [place] # (Auto) Eos # (Auto) Baso # (Auto) Abs Immat Gran (auto) Absolute Neuts (auto) Absolute Nucleated RBC Nucleated RBC % (auto) Smear Tech's Comments Smear Path Review Absolute Retic Percent Retic Immature Retic Fraction Retic Hgb Equivalent PT INR Fibrinogen VBG pH VBG pCO2 VBG pO2 VBG HCO3 VBG O2 Saturation VBG Base Excess Sodium 139 Potassium 3.2 L Chloride 95 L Carbon Dioxide 30 H Anion Gap 17 BUN 14 Creatinine 1.23 Estim Creat Clear Calc 62.5 Estimated GFR > 60 POC Glucose 303 H 256 H Random Glucose Fasting Glucose 371 H* D Osmolality Lactic Acid Lactic Acid Fup @ 2Hr Lactic Acid Fup @ 4Hr Calcium 8.4 Phosphorus Magnesium 1.4 L* Iron TIBC % Saturation Unsat Iron Binding Total Bilirubin Direct Bilirubin AST ALT Alkaline Phosphatase Lactate Dehydrogenase Total Creatine Kinase Troponin I High Sens Total Protein Albumin Lipase Vitamin B12 Folate Urine Color Urine Appearance Urine pH Ur Specific [place] Urine Protein Urine Glucose (UA) Urine Ketones Urine Blood Urine Nitrite Ur Leukocyte Esterase Urine RBC Urine WBC Ur Squamous Epith Cells Amorphous Sediment Urine Bacteria Stool Occult Blood Urine Opiates Screen Ur Barbiturates Screen Ur Phencyclidine Scrn Ur Amphetamines Screen U Benzodiazepines Scrn Urine Cocaine Screen U Marijuana (THC) Screen Ethyl Alcohol Acetone, Qual C. difficile Toxin A&B C. difficile Antigen C. difficile Interpret COVID-19 ([facility]) COVID-19 Clin Com Blood Type Antibody Screen 09/16/20 09/16/20 09/16/20 05:30 05:30 05:30 WBC 3.3 L RBC 2.47 L D Hgb 7.7 L D Hct 22.7 L D MCV 91.9 MCH 31.2 MCHC 33.9 RDW 13.8 Plt Count 19 L* MPV 10.4 Immature Gran % (Auto) 0.6 H Neut % (Auto) 60.3 Lymph % (Auto) 27.3 [place] % (Auto) 9.7 Eos % (Auto) 1.8 Baso % (Auto) 0.3 Lymph # (Auto) 0.9 L [place] # (Auto) 0.3 Eos # (Auto) 0.1 Baso # (Auto) 0.0 Abs Immat Gran (auto) 0.02 Absolute Neuts (auto) 2.0 Absolute Nucleated RBC 0.020 H Nucleated RBC % (auto) 0.6 H Smear Tech's Comments Smear Path Review Absolute Retic 0.040 Percent Retic 1.5 Immature Retic Fraction 28.0 H Retic Hgb Equivalent 34.9 PT INR Fibrinogen VBG pH VBG pCO2 VBG pO2 VBG HCO3 VBG O2 Saturation VBG Base Excess Sodium 137 Potassium 2.9 L Chloride 95 L Carbon Dioxide 29 Anion Gap 16 BUN 10 Creatinine 0.86 Estim Creat Clear Calc 89.4 Estimated GFR > 60 POC Glucose Random Glucose Fasting Glucose 153 H D Osmolality Lactic Acid Lactic Acid Fup @ 2Hr Lactic Acid Fup @ 4Hr Calcium 7.9 L Phosphorus Magnesium 0.9 L* Iron 67 TIBC 184 L % Saturation 36 Unsat Iron Binding 117 Total Bilirubin Direct Bilirubin AST ALT Alkaline Phosphatase Lactate Dehydrogenase 168 Total Creatine Kinase Troponin I High Sens Total Protein Albumin Lipase Vitamin B12 Folate 4.3 Urine Color Urine Appearance Urine pH Ur Specific [place] Urine Protein Urine Glucose (UA) Urine Ketones Urine Blood Urine Nitrite Ur Leukocyte Esterase Urine RBC Urine WBC Ur Squamous Epith Cells Amorphous Sediment Urine Bacteria Stool Occult Blood Urine Opiates Screen Ur Barbiturates Screen Ur Phencyclidine Scrn Ur Amphetamines Screen U Benzodiazepines Scrn Urine Cocaine Screen U Marijuana (THC) Screen Ethyl Alcohol Acetone, Qual C. difficile Toxin A&B C. difficile Antigen C. difficile Interpret COVID-19 ([facility]) COVID-19 Clin Com Blood Type Antibody Screen 09/16/20 09/16/20 09/16/20 07:52 09:56 10:58 WBC RBC Hgb Hct MCV MCH MCHC RDW Plt Count MPV Immature Gran % (Auto) Neut % (Auto) Lymph % (Auto) [place] % (Auto) Eos % (Auto) Baso % (Auto) Lymph # (Auto) [place] # (Auto) Eos # (Auto) Baso # (Auto) Abs Immat Gran (auto) Absolute Neuts (auto) Absolute Nucleated RBC Nucleated RBC % (auto) Smear Tech's Comments Smear Path Review Absolute Retic Percent Retic Immature Retic Fraction Retic Hgb Equivalent PT INR Fibrinogen VBG pH VBG pCO2 VBG pO2 VBG HCO3 VBG O2 Saturation VBG Base Excess Sodium Potassium Chloride Carbon Dioxide Anion Gap BUN Creatinine Estim Creat Clear Calc Estimated GFR POC Glucose 195 H 342 H Random Glucose Fasting Glucose Osmolality Lactic Acid Lactic Acid Fup @ 2Hr Lactic Acid Fup @ 4Hr Calcium Phosphorus Magnesium Iron TIBC % Saturation Unsat Iron Binding Total Bilirubin Direct Bilirubin AST ALT Alkaline Phosphatase Lactate Dehydrogenase Total Creatine Kinase Troponin I High Sens Total Protein Albumin Lipase Vitamin B12 Folate Urine Color Urine Appearance Urine pH Ur Specific [place] Urine Protein Urine Glucose (UA) Urine Ketones Urine Blood Urine Nitrite Ur Leukocyte Esterase Urine RBC Urine WBC Ur Squamous Epith Cells Amorphous Sediment Urine Bacteria Stool Occult Blood Urine Opiates Screen Ur Barbiturates Screen Ur Phencyclidine Scrn Ur Amphetamines Screen U Benzodiazepines Scrn Urine Cocaine Screen U Marijuana (THC) Screen Ethyl Alcohol Acetone, Qual C. difficile Toxin A&B C. difficile Antigen C. difficile Interpret COVID-19 ([facility]) COVID-19 Clin Com Blood Type O Positive Antibody Screen NEGATIVE 09/16/20 09/16/20 09/17/20 16:09 20:22 06:38 WBC 2.4 L RBC 2.48 L Hgb 7.8 L Hct 23.2 L MCV 93.5 MCH 31.5 MCHC 33.6 RDW 14.2 Plt Count 33 L D MPV 10.6 Immature Gran % (Auto) 0.9 H Neut % (Auto) 63.8 Lymph % (Auto) 24.3 [place] % (Auto) 8.9 Eos % (Auto) 1.7 Baso % (Auto) 0.4 Lymph # (Auto) 0.6 L [place] # (Auto) 0.2 Eos # (Auto) 0.0 Baso # (Auto) 0.0 Abs Immat Gran (auto) 0.02 Absolute Neuts (auto) 1.5 L Absolute Nucleated RBC 0.000 Nucleated RBC % (auto) 0.0 Smear Tech's Comments VERIFIED Smear Path Review SEE NOTE Absolute Retic Percent Retic Immature Retic Fraction Retic Hgb Equivalent PT INR Fibrinogen VBG pH VBG pCO2 VBG pO2 VBG HCO3 VBG O2 Saturation VBG Base Excess Sodium Potassium Chloride Carbon Dioxide Anion Gap BUN Creatinine Estim Creat Clear Calc Estimated GFR POC Glucose 306 H 320 H Random Glucose Fasting Glucose Osmolality Lactic Acid Lactic Acid Fup @ 2Hr Lactic Acid Fup @ 4Hr Calcium Phosphorus Magnesium Iron TIBC % Saturation Unsat Iron Binding Total Bilirubin Direct Bilirubin AST ALT Alkaline Phosphatase Lactate Dehydrogenase Total Creatine Kinase Troponin I High Sens Total Protein Albumin Lipase Vitamin B12 Folate Urine Color Urine Appearance Urine pH Ur Specific [place] Urine Protein Urine Glucose (UA) Urine Ketones Urine Blood Urine Nitrite Ur Leukocyte Esterase Urine RBC Urine WBC Ur Squamous Epith Cells Amorphous Sediment Urine Bacteria Stool Occult Blood Urine Opiates Screen Ur Barbiturates Screen Ur Phencyclidine Scrn Ur Amphetamines Screen U Benzodiazepines Scrn Urine Cocaine Screen U Marijuana (THC) Screen Ethyl Alcohol Acetone, Qual C. difficile Toxin A&B C. difficile Antigen C. difficile Interpret COVID-19 ([facility]) COVID-19 Clin Com Blood Type Antibody Screen 09/17/20 09/17/20 09/17/20 06:38 07:46 11:10 WBC RBC Hgb Hct MCV MCH MCHC RDW Plt Count MPV Immature Gran % (Auto) Neut % (Auto) Lymph % (Auto) [place] % (Auto) Eos % (Auto) Baso % (Auto) Lymph # (Auto) [place] # (Auto) Eos # (Auto) Baso # (Auto) Abs Immat Gran (auto) Absolute Neuts (auto) Absolute Nucleated RBC Nucleated RBC % (auto) Smear Tech's Comments Smear Path Review Absolute Retic Percent Retic Immature Retic Fraction Retic Hgb Equivalent PT INR Fibrinogen VBG pH VBG pCO2 VBG pO2 VBG HCO3 VBG O2 Saturation VBG Base Excess Sodium 137 Potassium 3.2 L Chloride 99 Carbon Dioxide 28 Anion Gap 13 BUN 7 L Creatinine 0.77 Estim Creat Clear Calc 99.9 Estimated GFR > 60 POC Glucose 297 H 307 H Random Glucose Fasting Glucose 267 H D Osmolality Lactic Acid Lactic Acid Fup @ 2Hr Lactic Acid Fup @ 4Hr Calcium 7.6 L Phosphorus Magnesium 1.4 L* Iron TIBC % Saturation Unsat Iron Binding Total Bilirubin Direct Bilirubin AST ALT Alkaline Phosphatase Lactate Dehydrogenase Total Creatine Kinase Troponin I High Sens Total Protein Albumin Lipase Vitamin B12 Folate Urine Color Urine Appearance Urine pH Ur Specific [place] Urine Protein Urine Glucose (UA) Urine Ketones Urine Blood Urine Nitrite Ur Leukocyte Esterase Urine RBC Urine WBC Ur Squamous Epith Cells Amorphous Sediment Urine Bacteria Stool Occult Blood Urine Opiates Screen Ur Barbiturates Screen Ur Phencyclidine Scrn Ur Amphetamines Screen U Benzodiazepines Scrn Urine Cocaine Screen U Marijuana (THC) Screen Ethyl Alcohol Acetone, Qual C. difficile Toxin A&B C. difficile Antigen C. difficile Interpret COVID-19 ([facility]) COVID-19 Clin Com Blood Type Antibody Screen 09/17/20 09/17/20 09/17/20 16:30 16:33 21:07 WBC RBC Hgb Hct MCV MCH MCHC RDW Plt Count MPV Immature Gran % (Auto) Neut % (Auto) Lymph % (Auto) [place] % (Auto) Eos % (Auto) Baso % (Auto) Lymph # (Auto) [place] # (Auto) Eos # (Auto) Baso # (Auto) Abs Immat Gran (auto) Absolute Neuts (auto) Absolute Nucleated RBC Nucleated RBC % (auto) Smear Tech's Comments Smear Path Review Absolute Retic Percent Retic Immature Retic Fraction Retic Hgb Equivalent PT INR Fibrinogen VBG pH VBG pCO2 VBG pO2 VBG HCO3 VBG O2 Saturation VBG Base Excess Sodium Potassium Chloride Carbon Dioxide Anion Gap BUN Creatinine Estim Creat Clear Calc Estimated GFR POC Glucose 263 H 219 H Random Glucose Fasting Glucose Osmolality Lactic Acid Lactic Acid Fup @ 2Hr Lactic Acid Fup @ 4Hr Calcium Phosphorus Magnesium Iron TIBC % Saturation Unsat Iron Binding Total Bilirubin Direct Bilirubin AST ALT Alkaline Phosphatase Lactate Dehydrogenase Total Creatine Kinase Troponin I High Sens Total Protein Albumin Lipase Vitamin B12 Folate Urine Color Urine Appearance Urine pH Ur Specific [place] Urine Protein Urine Glucose (UA) Urine Ketones Urine Blood Urine Nitrite Ur Leukocyte Esterase Urine RBC Urine WBC Ur Squamous Epith Cells Amorphous Sediment Urine Bacteria Stool Occult Blood NEG Urine Opiates Screen Ur Barbiturates Screen Ur Phencyclidine Scrn Ur Amphetamines Screen U Benzodiazepines Scrn Urine Cocaine Screen U Marijuana (THC) Screen Ethyl Alcohol Acetone, Qual C. difficile Toxin A&B C. difficile Antigen C. difficile Interpret COVID-19 ([facility]) COVID-19 [facility] Com Blood Type Antibody Screen 09/18/20 09/18/20 09/18/20 06:11 06:11 08:02 WBC 3.3 L RBC 2.71 L Hgb 8.6 L Hct 25.5 L MCV 94.1 MCH 31.7 MCHC 33.7 RDW 14.6 Plt Count 35 L MPV 11.3 Immature Gran % (Auto) 0.6 H Neut % (Auto) 55.7 Lymph % (Auto) 30.3 [place] % (Auto) 10.4 Eos % (Auto) 2.1 Baso % (Auto) 0.9 Lymph # (Auto) 1.0 L [place] # (Auto) 0.3 Eos # (Auto) 0.1 Baso # (Auto) 0.0 Abs Immat Gran (auto) 0.02 Absolute Neuts (auto) 1.8 L Absolute Nucleated RBC 0.000 Nucleated RBC % (auto) 0.0 Smear Tech's Comments Smear Path Review Absolute Retic Percent Retic Immature Retic Fraction Retic Hgb Equivalent PT INR Fibrinogen VBG pH VBG pCO2 VBG pO2 VBG HCO3 VBG O2 Saturation VBG Base Excess Sodium 138 Potassium 3.4 Chloride 102 Carbon Dioxide 27 Anion Gap 12 BUN 7 L Creatinine 0.77 Estim Creat Clear Calc 99.9 Estimated GFR > 60 POC Glucose 234 H Random Glucose 220 H Fasting Glucose Osmolality Lactic Acid Lactic Acid Fup @ 2Hr Lactic Acid Fup @ 4Hr Calcium 7.9 L Phosphorus Magnesium 1.5 L Iron TIBC % Saturation Unsat Iron Binding Total Bilirubin Direct Bilirubin AST ALT Alkaline Phosphatase Lactate Dehydrogenase Total Creatine Kinase Troponin I High Sens Total Protein Albumin Lipase Vitamin B12 Folate Urine Color Urine Appearance Urine pH Ur Specific [place] Urine Protein Urine Glucose (UA) Urine Ketones Urine Blood Urine Nitrite Ur Leukocyte Esterase Urine RBC Urine WBC Ur Squamous Epith Cells Amorphous Sediment Urine Bacteria Stool Occult Blood Urine Opiates Screen Ur Barbiturates Screen Ur Phencyclidine Scrn Ur Amphetamines Screen U Benzodiazepines Scrn Urine Cocaine Screen U Marijuana (THC) Screen Ethyl Alcohol Acetone, Qual C. difficile Toxin A&B C. difficile Antigen C. difficile Interpret COVID-19 ([facility]) COVID-19 Clin Com Blood Type Antibody Screen 09/18/20 09/18/20 09/18/20 11:14 13:25 16:39 WBC RBC Hgb Hct MCV MCH MCHC RDW Plt Count MPV Immature Gran % (Auto) Neut % (Auto) Lymph % (Auto) [place] % (Auto) Eos % (Auto) Baso % (Auto) Lymph # (Auto) [place] # (Auto) Eos # (Auto) Baso # (Auto) Abs Immat Gran (auto) Absolute Neuts (auto) Absolute Nucleated RBC Nucleated RBC % (auto) Smear Tech's Comments Smear Path Review Absolute Retic Percent Retic Immature Retic Fraction Retic Hgb Equivalent PT INR Fibrinogen VBG pH VBG pCO2 VBG pO2 VBG HCO3 VBG O2 Saturation VBG Base Excess Sodium Potassium Chloride Carbon Dioxide Anion Gap BUN Creatinine Estim Creat Clear Calc Estimated GFR POC Glucose 304 H 319 H Random Glucose Fasting Glucose Osmolality Lactic Acid Lactic Acid Fup @ 2Hr Lactic Acid Fup @ 4Hr Calcium Phosphorus Magnesium Iron TIBC % Saturation Unsat Iron Binding Total Bilirubin Direct Bilirubin AST ALT Alkaline Phosphatase Lactate Dehydrogenase Total Creatine Kinase Troponin I High Sens Total Protein Albumin Lipase Vitamin B12 Folate Urine Color Urine Appearance Urine pH Ur Specific [place] Urine Protein Urine Glucose (UA) Urine Ketones Urine Blood Urine Nitrite Ur Leukocyte Esterase Urine RBC Urine WBC Ur Squamous Epith Cells Amorphous Sediment Urine Bacteria Stool Occult Blood Urine Opiates Screen Ur Barbiturates Screen Ur Phencyclidine Scrn Ur Amphetamines Screen U Benzodiazepines Scrn Urine Cocaine Screen U Marijuana (THC) Screen Ethyl Alcohol Acetone, Qual C. difficile Toxin A&B C. difficile Antigen C. difficile Interpret COVID-19 ([facility]) Negative COVID-19 Clin Com See Note Blood Type Antibody Screen 09/18/20 09/19/20 09/19/20 20:34 07:31 08:34 WBC 3.2 L RBC 2.77 L Hgb 8.8 L Hct 26.4 L MCV 95.3 MCH 31.8 MCHC 33.3 RDW 15.3 Plt Count 48 L D MPV 11.6 Immature Gran % (Auto) 0.6 H Neut % (Auto) 71.8 Lymph % (Auto) 16.4 L [place] % (Auto) 9.0 Eos % (Auto) 1.9 Baso % (Auto) 0.3 Lymph # (Auto) 0.5 L [place] # (Auto) 0.3 Eos # (Auto) 0.1 Baso # (Auto) 0.0 Abs Immat Gran (auto) 0.02 Absolute Neuts (auto) 2.3 Absolute Nucleated RBC 0.000 Nucleated RBC % (auto) 0.0 Smear Tech's Comments VERIFIED Smear Path Review Absolute Retic Percent Retic Immature Retic Fraction Retic Hgb Equivalent PT INR Fibrinogen VBG pH VBG pCO2 VBG pO2 VBG HCO3 VBG O2 Saturation VBG Base Excess Sodium Potassium Chloride Carbon Dioxide Anion Gap BUN Creatinine Estim Creat Clear Calc Estimated GFR POC Glucose 224 H 209 H Random Glucose Fasting Glucose Osmolality Lactic Acid Lactic Acid Fup @ 2Hr Lactic Acid Fup @ 4Hr Calcium Phosphorus Magnesium Iron TIBC % Saturation Unsat Iron Binding Total Bilirubin Direct Bilirubin AST ALT Alkaline Phosphatase Lactate Dehydrogenase Total Creatine Kinase Troponin I High Sens Total Protein Albumin Lipase Vitamin B12 Folate Urine Color Urine Appearance Urine pH Ur Specific [place] Urine Protein Urine Glucose (UA) Urine Ketones Urine Blood Urine Nitrite Ur Leukocyte Esterase Urine RBC Urine WBC Ur Squamous Epith Cells Amorphous Sediment Urine Bacteria Stool Occult Blood Urine Opiates Screen Ur Barbiturates Screen Ur Phencyclidine Scrn Ur Amphetamines Screen U Benzodiazepines Scrn Urine Cocaine Screen U Marijuana (THC) Screen Ethyl Alcohol Acetone, Qual C. difficile Toxin A&B C. difficile Antigen C. difficile Interpret COVID-19 ([facility]) COVID-19 Clin Com Blood Type Antibody Screen 09/19/20 09/19/20 09/19/20 08:34 08:35 11:39 WBC RBC Hgb Hct MCV MCH MCHC RDW Plt Count MPV Immature Gran % (Auto) Neut % (Auto) Lymph % (Auto) [place] % (Auto) Eos % (Auto) Baso % (Auto) Lymph # (Auto) [place] # (Auto) Eos # (Auto) Baso # (Auto) Abs Immat Gran (auto) Absolute Neuts (auto) Absolute Nucleated RBC Nucleated RBC % (auto) Smear Tech's Comments Smear Path Review Absolute Retic Percent Retic Immature Retic Fraction Retic Hgb Equivalent PT INR Fibrinogen VBG pH VBG pCO2 VBG pO2 VBG HCO3 VBG O2 Saturation VBG Base Excess Sodium 139 Potassium 3.5 Chloride 102 Carbon Dioxide 27 Anion Gap 14 BUN 8 L Creatinine 0.78 Estim Creat Clear Calc 98.6 Estimated GFR > 60 POC Glucose 280 H Random Glucose 239 H Fasting Glucose Osmolality Lactic Acid Lactic Acid Fup @ 2Hr Lactic Acid Fup @ 4Hr Calcium 8.0 L Phosphorus Magnesium Iron TIBC % Saturation Unsat Iron Binding Total Bilirubin Direct Bilirubin AST ALT Alkaline Phosphatase Lactate Dehydrogenase Total Creatine Kinase Troponin I High Sens Total Protein Albumin Lipase Vitamin B12 Folate Urine Color Urine Appearance Urine pH Ur Specific [place] Urine Protein Urine Glucose (UA) Urine Ketones Urine Blood Urine Nitrite Ur Leukocyte Esterase Urine RBC Urine WBC Ur Squamous Epith Cells Amorphous Sediment Urine Bacteria Stool Occult Blood Urine Opiates Screen Ur Barbiturates Screen Ur Phencyclidine Scrn Ur Amphetamines Screen U Benzodiazepines Scrn Urine Cocaine Screen U Marijuana (THC) Screen Ethyl Alcohol Acetone, Qual C. difficile Toxin A&B Negative C. difficile Antigen Negative C. difficile Interpret SEE NOTE COVID-19 ([facility]) COVID-19 Clin Com Blood Type Antibody Screen 09/19/20 09/19/20 09/20/20 16:33 20:33 06:07 WBC 2.1 L RBC 2.37 L Hgb 7.6 L Hct 22.4 L MCV 94.5 MCH 32.1 MCHC 33.9 RDW 15.2 Plt Count 40 L MPV 10.9 Immature Gran % (Auto) 0.5 H Neut % (Auto) 54.0 Lymph % (Auto) 25.4 [place] % (Auto) 17.7 H Eos % (Auto) 1.9 Baso % (Auto) 0.5 Lymph # (Auto) 0.5 L [place] # (Auto) 0.4 Eos # (Auto) 0.0 Baso # (Auto) 0.0 Abs Immat Gran (auto) 0.01 Absolute Neuts (auto) 1.1 L Absolute Nucleated RBC 0.000 Nucleated RBC % (auto) 0.0 Smear Tech's Comments VERIFIED Smear Path Review Absolute Retic Percent Retic Immature Retic Fraction Retic Hgb Equivalent PT INR Fibrinogen VBG pH VBG pCO2 VBG pO2 VBG HCO3 VBG O2 Saturation VBG Base Excess Sodium Potassium Chloride Carbon Dioxide Anion Gap BUN Creatinine Estim Creat Clear Calc Estimated GFR POC Glucose 263 H 256 H Random Glucose Fasting Glucose Osmolality Lactic Acid Lactic Acid Fup @ 2Hr Lactic Acid Fup @ 4Hr Calcium Phosphorus Magnesium Iron TIBC % Saturation Unsat Iron Binding Total Bilirubin Direct Bilirubin AST ALT Alkaline Phosphatase Lactate Dehydrogenase Total Creatine Kinase Troponin I High Sens Total Protein Albumin Lipase Vitamin B12 Folate Urine Color Urine Appearance Urine pH Ur Specific [place] Urine Protein Urine Glucose (UA) Urine Ketones Urine Blood Urine Nitrite Ur Leukocyte Esterase Urine RBC Urine WBC Ur Squamous Epith Cells Amorphous Sediment Urine Bacteria Stool Occult Blood Urine Opiates Screen Ur Barbiturates Screen Ur Phencyclidine Scrn Ur Amphetamines Screen U Benzodiazepines Scrn Urine Cocaine Screen U Marijuana (THC) Screen Ethyl Alcohol Acetone, Qual C. difficile Toxin A&B C. difficile Antigen C. difficile Interpret COVID-19 ([facility]) COVID-19 Clin Com Blood Type Antibody Screen 09/20/20 09/20/20 09/20/20 06:07 07:15 11:18 WBC RBC Hgb Hct MCV MCH MCHC RDW Plt Count MPV Immature Gran % (Auto) Neut % (Auto) Lymph % (Auto) [place] % (Auto) Eos % (Auto) Baso % (Auto) Lymph # (Auto) [place] # (Auto) Eos # (Auto) Baso # (Auto) Abs Immat Gran (auto) Absolute Neuts (auto) Absolute Nucleated RBC Nucleated RBC % (auto) Smear Tech's Comments Smear Path Review Absolute Retic Percent Retic Immature Retic Fraction Retic Hgb Equivalent PT INR Fibrinogen VBG pH VBG pCO2 VBG pO2 VBG HCO3 VBG O2 Saturation VBG Base Excess Sodium 137 Potassium 3.0 L Chloride 103 Carbon Dioxide 25 Anion Gap 12 BUN 7 L Creatinine 0.71 Estim Creat Clear Calc 108.3 Estimated GFR > 60 POC Glucose 180 H 222 H Random Glucose 193 H Fasting Glucose Osmolality Lactic Acid Lactic Acid Fup @ 2Hr Lactic Acid Fup @ 4Hr Calcium 7.5 L D Phosphorus Magnesium 1.2 L* Iron TIBC % Saturation Unsat Iron Binding Total Bilirubin 0.8 Direct Bilirubin 0.4 AST 22 ALT 12 Alkaline Phosphatase 74 Lactate Dehydrogenase Total Creatine Kinase Troponin I High Sens Total Protein 5.1 L Albumin 2.7 L Lipase Vitamin B12 Folate Urine Color Urine Appearance Urine pH Ur Specific [place] Urine Protein Urine Glucose (UA) Urine Ketones Urine Blood Urine Nitrite Ur Leukocyte Esterase Urine RBC Urine WBC Ur Squamous Epith Cells Amorphous Sediment Urine Bacteria Stool Occult Blood Urine Opiates Screen Ur Barbiturates Screen Ur Phencyclidine Scrn Ur Amphetamines Screen U Benzodiazepines Scrn Urine Cocaine Screen U Marijuana (THC) Screen Ethyl Alcohol Acetone, Qual C. difficile Toxin A&B C. difficile Antigen C. difficile Interpret COVID-19 ([facility]) COVID-19 Clin Com Blood Type Antibody Screen 09/20/20 09/20/20 09/20/20 15:05 16:34 21:15 WBC RBC Hgb Hct MCV MCH MCHC RDW Plt Count MPV Immature Gran % (Auto) Neut % (Auto) Lymph % (Auto) [place] % (Auto) Eos % (Auto) Baso % (Auto) Lymph # (Auto) [place] # (Auto) Eos # (Auto) Baso # (Auto) Abs Immat Gran (auto) Absolute Neuts (auto) Absolute Nucleated RBC Nucleated RBC % (auto) Smear Tech's Comments Smear Path Review Absolute Retic Percent Retic Immature Retic Fraction Retic Hgb Equivalent PT INR Fibrinogen VBG pH VBG pCO2 VBG pO2 VBG HCO3 VBG O2 Saturation VBG Base Excess Sodium Potassium Chloride Carbon Dioxide Anion Gap BUN Creatinine Estim Creat Clear Calc Estimated GFR POC Glucose 245 H 232 H Random Glucose Fasting Glucose Osmolality Lactic Acid Lactic Acid Fup @ 2Hr Lactic Acid Fup @ 4Hr Calcium Phosphorus Magnesium Iron TIBC % Saturation Unsat Iron Binding Total Bilirubin Direct Bilirubin AST ALT Alkaline Phosphatase Lactate Dehydrogenase Total Creatine Kinase Troponin I High Sens Total Protein Albumin Lipase Vitamin B12 Folate Urine Color Urine Appearance Urine pH Ur Specific [place] Urine Protein Urine Glucose (UA) Urine Ketones Urine Blood Urine Nitrite Ur Leukocyte Esterase Urine RBC Urine WBC Ur Squamous Epith Cells Amorphous Sediment Urine Bacteria Stool Occult Blood Urine Opiates Screen Ur Barbiturates Screen Ur Phencyclidine Scrn Ur Amphetamines Screen U Benzodiazepines Scrn Urine Cocaine Screen U Marijuana (THC) Screen Ethyl Alcohol Acetone, Qual C. difficile Toxin A&B C. difficile Antigen C. difficile Interpret COVID-19 ([facility]) Negative COVID-19 Clin Com See Note Blood Type Antibody Screen 09/21/20 09/21/20 09/21/20 06:28 06:28 07:35 WBC 3.0 L RBC 2.35 L Hgb 7.4 L Hct 22.4 L MCV 95.3 MCH 31.5 MCHC 33.0 RDW 15.0 Plt Count 49 L MPV 10.9 Immature Gran % (Auto) 0.3 Neut % (Auto) 49.8 Lymph % (Auto) 29.5 [place] % (Auto) 17.4 H Eos % (Auto) 2.3 Baso % (Auto) 0.7 Lymph # (Auto) 0.9 L [place] # (Auto) 0.5 Eos # (Auto) 0.1 Baso # (Auto) 0.0 Abs Immat Gran (auto) 0.01 Absolute Neuts (auto) 1.5 L Absolute Nucleated RBC 0.000 Nucleated RBC % (auto) 0.0 Smear Tech's Comments Smear Path Review Absolute Retic Percent Retic Immature Retic Fraction Retic Hgb Equivalent PT INR Fibrinogen VBG pH VBG pCO2 VBG pO2 VBG HCO3 VBG O2 Saturation VBG Base Excess Sodium 134 L Potassium 4.6 Chloride 103 Carbon Dioxide 24 Anion Gap 12 BUN 7 L Creatinine 0.71 Estim Creat Clear Calc 108.3 Estimated GFR > 60 POC Glucose 261 H Random Glucose 213 H Fasting Glucose Osmolality Lactic Acid Lactic Acid Fup @ 2Hr Lactic Acid Fup @ 4Hr Calcium 7.4 L Phosphorus Magnesium 1.5 L Iron TIBC % Saturation Unsat Iron Binding Total Bilirubin Direct Bilirubin AST ALT Alkaline Phosphatase Lactate Dehydrogenase Total Creatine Kinase Troponin I High Sens Total Protein Albumin Lipase Vitamin B12 Folate Urine Color Urine Appearance Urine pH Ur Specific [place] Urine Protein Urine Glucose (UA) Urine Ketones Urine Blood Urine Nitrite Ur Leukocyte Esterase Urine RBC Urine WBC Ur Squamous Epith Cells Amorphous Sediment Urine Bacteria Stool Occult Blood Urine Opiates Screen Ur Barbiturates Screen Ur Phencyclidine Scrn Ur Amphetamines Screen U Benzodiazepines Scrn Urine Cocaine Screen U Marijuana (THC) Screen Ethyl Alcohol Acetone, Qual C. difficile Toxin A&B C. difficile Antigen C. difficile Interpret COVID-19 ([facility]) COVID-19 [employer] Com Blood Type Antibody Screen 09/21/20 09/21/20 09/21/20 11:36 16:35 20:26 WBC RBC Hgb Hct MCV MCH MCHC RDW Plt Count MPV Immature Gran % (Auto) Neut % (Auto) Lymph % (Auto) [place] % (Auto) Eos % (Auto) Baso % (Auto) Lymph # (Auto) [place] # (Auto) Eos # (Auto) Baso # (Auto) Abs Immat Gran (auto) Absolute Neuts (auto) Absolute Nucleated RBC Nucleated RBC % (auto) Smear Tech's Comments Smear Path Review Absolute Retic Percent Retic Immature Retic Fraction Retic Hgb Equivalent PT INR Fibrinogen VBG pH VBG pCO2 VBG pO2 VBG HCO3 VBG O2 Saturation VBG Base Excess Sodium Potassium Chloride Carbon Dioxide Anion Gap BUN Creatinine Estim Creat Clear Calc Estimated GFR POC Glucose 283 H 235 H 303 H Random Glucose Fasting Glucose Osmolality Lactic Acid Lactic Acid Fup @ 2Hr Lactic Acid Fup @ 4Hr Calcium Phosphorus Magnesium Iron TIBC % Saturation Unsat Iron Binding Total Bilirubin Direct Bilirubin AST ALT Alkaline Phosphatase Lactate Dehydrogenase Total Creatine Kinase Troponin I High Sens Total Protein Albumin Lipase Vitamin B12 Folate Urine Color Urine Appearance Urine pH Ur Specific Sunbright Urine Protein Urine Glucose (UA) Urine Ketones Urine Blood Urine Nitrite Ur Leukocyte Esterase Urine RBC Urine WBC Ur Squamous Epith Cells Amorphous Sediment Urine Bacteria Stool Occult Blood Urine Opiates Screen Ur Barbiturates Screen Ur Phencyclidine Scrn Ur Amphetamines Screen U Benzodiazepines Scrn Urine Cocaine Screen U Marijuana (THC) Screen Ethyl Alcohol Acetone, Qual C. difficile Toxin A&B C. difficile Antigen C. difficile Interpret COVID-19 (KAYLA) COVID-19 [employer] Com Blood Type Antibody Screen 09/22/20 09/22/20 09/22/20 07:27 11:33 16:31 WBC RBC Hgb Hct MCV MCH MCHC RDW Plt Count MPV Immature Gran % (Auto) Neut % (Auto) Lymph % (Auto) [place] % (Auto) Eos % (Auto) Baso % (Auto) Lymph # (Auto) [place] # (Auto) Eos # (Auto) Baso # (Auto) Abs Immat Gran (auto) Absolute Neuts (auto) Absolute Nucleated RBC Nucleated RBC % (auto) Smear Tech's Comments Smear Path Review Absolute Retic Percent Retic Immature Retic Fraction Retic Hgb Equivalent PT INR Fibrinogen VBG pH VBG pCO2 VBG pO2 VBG HCO3 VBG O2 Saturation VBG Base Excess Sodium Potassium Chloride Carbon Dioxide Anion Gap BUN Creatinine Estim Creat Clear Calc Estimated GFR POC Glucose 194 H 187 H 374 H* Random Glucose Fasting Glucose Osmolality Lactic Acid Lactic Acid Fup @ 2Hr Lactic Acid Fup @ 4Hr Calcium Phosphorus Magnesium Iron TIBC % Saturation Unsat Iron Binding Total Bilirubin Direct Bilirubin AST ALT Alkaline Phosphatase Lactate Dehydrogenase Total Creatine Kinase Troponin I High Sens Total Protein Albumin Lipase Vitamin B12 Folate Urine Color Urine Appearance Urine pH Ur Specific Sunbright Urine Protein Urine Glucose (UA) Urine Ketones Urine Blood Urine Nitrite Ur Leukocyte Esterase Urine RBC Urine WBC Ur Squamous Epith Cells Amorphous Sediment Urine Bacteria Stool Occult Blood Urine Opiates Screen Ur Barbiturates Screen Ur Phencyclidine Scrn Ur Amphetamines Screen U Benzodiazepines Scrn Urine Cocaine Screen U Marijuana (THC) Screen Ethyl Alcohol Acetone, Qual C. difficile Toxin A&B C. difficile Antigen C. difficile Interpret COVID-19 (KAYLA) COVID-19 Clin Com Blood Type Antibody Screen 09/22/20 09/23/20 09/23/20 20:23 07:39 11:19 WBC RBC Hgb Hct MCV MCH MCHC RDW Plt Count MPV Immature Gran % (Auto) Neut % (Auto) Lymph % (Auto) [place] % (Auto) Eos % (Auto) Baso % (Auto) Lymph # (Auto) [place] # (Auto) Eos # (Auto) Baso # (Auto) Abs Immat Gran (auto) Absolute Neuts (auto) Absolute Nucleated RBC Nucleated RBC % (auto) Smear Tech's Comments Smear Path Review Absolute Retic Percent Retic Immature Retic Fraction Retic Hgb Equivalent PT INR Fibrinogen VBG pH VBG pCO2 VBG pO2 VBG HCO3 VBG O2 Saturation VBG Base Excess Sodium Potassium Chloride Carbon Dioxide Anion Gap BUN Creatinine Estim Creat Clear Calc Estimated GFR POC Glucose 285 H 221 H 401 H* Random Glucose Fasting Glucose Osmolality Lactic Acid Lactic Acid Fup @ 2Hr Lactic Acid Fup @ 4Hr Calcium Phosphorus Magnesium Iron TIBC % Saturation Unsat Iron Binding Total Bilirubin Direct Bilirubin AST ALT Alkaline Phosphatase Lactate Dehydrogenase Total Creatine Kinase Troponin I High Sens Total Protein Albumin Lipase Vitamin B12 Folate Urine Color Urine Appearance Urine pH Ur Specific Sunbright Urine Protein Urine Glucose (UA) Urine Ketones Urine Blood Urine Nitrite Ur Leukocyte Esterase Urine RBC Urine WBC Ur Squamous Epith Cells Amorphous Sediment Urine Bacteria Stool Occult Blood Urine Opiates Screen Ur Barbiturates Screen Ur Phencyclidine Scrn Ur Amphetamines Screen U Benzodiazepines Scrn Urine Cocaine Screen U Marijuana (THC) Screen Ethyl Alcohol Acetone, Qual C. difficile Toxin A&B C. difficile Antigen C. difficile Interpret COVID-19 (KAYLA) COVID-19 Clin Com Blood Type Antibody Screen 09/23/20 11:51 WBC RBC Hgb Hct MCV MCH MCHC RDW Plt Count MPV Immature Gran % (Auto) Neut % (Auto) Lymph % (Auto) [place] % (Auto) Eos % (Auto) Baso % (Auto) Lymph # (Auto) [place] # (Auto) Eos # (Auto) Baso # (Auto) Abs Immat Gran (auto) Absolute Neuts (auto) Absolute Nucleated RBC Nucleated RBC % (auto) Smear Tech's Comments Smear Path Review Absolute Retic Percent Retic Immature Retic Fraction Retic Hgb Equivalent PT INR Fibrinogen VBG pH VBG pCO2 VBG pO2 VBG HCO3 VBG O2 Saturation VBG Base Excess Sodium Potassium Chloride Carbon Dioxide Anion Gap BUN Creatinine Estim Creat Clear Calc Estimated GFR POC Glucose Random Glucose Fasting Glucose Osmolality Lactic Acid Lactic Acid Fup @ 2Hr Lactic Acid Fup @ 4Hr Calcium Phosphorus Magnesium Iron TIBC % Saturation Unsat Iron Binding Total Bilirubin Direct Bilirubin AST ALT Alkaline Phosphatase Lactate Dehydrogenase Total Creatine Kinase Troponin I High Sens Total Protein Albumin Lipase Vitamin B12 Folate Urine Color Urine Appearance Urine pH Ur Specific Sunbright Urine Protein Urine Glucose (UA) Urine Ketones Urine Blood Urine Nitrite Ur Leukocyte Esterase Urine RBC Urine WBC Ur Squamous Epith Cells Amorphous Sediment Urine Bacteria Stool Occult Blood Urine Opiates Screen Ur Barbiturates Screen Ur Phencyclidine Scrn Ur Amphetamines Screen U Benzodiazepines Scrn Urine Cocaine Screen U Marijuana (THC) Screen Ethyl Alcohol Acetone, Qual C. difficile Toxin A&B C. difficile Antigen C. difficile Interpret COVID-19 (KAYLA) Negative COVID-19 Clin Com See Note Blood Type Antibody Screen Discharge Plan Discharge Patient Disposition: Xfer SNF Referrals: Jose White MD [Physician] - 1 Week (Please call and schedule a follow up appointment within 1 week.) Discharge Medications: New midodrine 5 mg Tablet 5 mg PO TID Qty: 1 RF: 0 quetiapine 100 mg Tablet 100 mg PO BEDTIME Qty: 1 RF: 0 magnesium oxide 400 mg (241.3 mg magnesium) Tablet 400 mg PO BIDPC Qty: 1 RF: 0 Continued insulin lispro [Admelog SoloStar U-100 Insulin] 100 unit/mL insulin pen 12 unit subcut TID 30 Days Qty: 15 RF: 1 gabapentin 400 mg capsule 400 mg PO TID Qty: 90 RF: 0 cholecalciferol (vitamin D3) 25 mcg (1,000 unit) capsule 25 mcg PO DAILY Qty: 90 RF: 0 Changed Basaglar KwikPen U-100 Insulin 100 unit/mL (3 mL) Insulin Pen 10 unit SUBCUT QPM Qty: 0 RF: 0 Discontinued nabumetone 750 mg tablet 750 mg PO BID Qty: 60 RF: 1 dexmethylphenidate 10 mg Capsule,Er Biphasic 50-50 10 mg PO DAILY RF: 0 amitriptyline 25 mg tablet 25 mg PO BEDTIME RF: 0 acamprosate 333 mg tablet,delayed release (DR/EC) 666 mg PO TID RF: 0 Discharge Orders: Discharge Order (Routine); Ordered 09/23/20 Ordered By: Jd Peters Diet: advance to usual diet and other Activity on Discharge: As tolerated Stand Alone Forms: Patient Portal Discharge page Other Ambulatory Orders: Add Laboratory Test (Routine) Timeframe: 1 Day Facility: [facility] - Location: Laboratory Ordered By: Chante Maza Care Plan Goals: To stay healthy and out of the hospital. Health Concerns: Alcohol Dependence and its acute and termite exterminator helper complications Plan of Treatment: Do not drink alcohol. You will be going to short term rehab to continue your recovery. Your body has already showed evidence of damage from years of drinking. If you continue to drink, this damage will continue and ultimately this will lead to your demise.
--- NOTE | 2020-09-23 14:34 | MHC.SLORD ---
Plan is for discharge to [facility] for STR, likely today, pending insurance authorization. Per MD, f/u for speech is no longer indicated. Name: Pedrito Esteves Date of : 1960 Age: 60 Date of Registration: 09/12/20 Speech Language Pathology Order Status:
--- NOTE | 2020-09-23 14:59 | PM.EVENT ---
Event Note Date of Service: 09/23/20 Event Note: Day Team Note S Pt continues to feel better and more hopeful for recovery O vitals - last documneted Gen - nad CVS - S1S2 Lungs - dim Abd - NT/ND Neuro - non-focal A/P plan was for STR today but denied by insurance. will need safe d/c plan. continue current mgmt otherwise
[2020-09-23 16:43] LABS: Glucose, Whole Blood 279 mg/dL (60-115)
[2020-09-23] MEDS: QUEtiapine Fumarate 100 MG TABLET PO (21:02)
[2020-09-23 21:31] LABS: Glucose, Whole Blood 209 mg/dL (60-115)
[2020-09-24] MEDS: Acetaminophen 325 MG TABLET 650 MG PO ×2 (00:02→06:03)
[2020-09-24 00:55] VITALS: TEMP 37.3
[2020-09-24 03:25] VITALS: BP 95/55; PULSE 97; RESP 18; TEMP 37.5; O2SAT 94
[2020-09-24] MEDS: Omeprazole 20 MG CAPSULE.DR PO (06:04)
[2020-09-24 07:42] VITALS: BP 80/60; PULSE 92; RESP 17; TEMP 36.4; O2SAT 97
[2020-09-24 07:44] LABS: Glucose, Whole Blood 228 mg/dL (60-115)
[2020-09-24 08:01] VITALS: BP 80/50
[2020-09-24] MEDS: Gabapentin 400 MG CAPSULE PO (08:01)
[2020-09-24] MEDS: Magnesium Oxide 400 MG TABLET PO (08:01)
[2020-09-24] MEDS: Midodrine HCl 5 MG TABLET PO (08:01)
[2020-09-24] MEDS: Thiamine HCL 100 MG TABLET PO (08:01)
[2020-09-24] MEDS: Folic Acid 1 MG TABLET PO (08:01)
[2020-09-24] MEDS: Insulin Lispro 100 UNIT/ML 3 ML VIAL SUBCUT (08:01)
--- NOTE | 2020-09-24 10:35 | MHC.RECOVSUP ---
Recovery Support note: This assembly instructions writer met with patient to further discuss recovery resources and treatment options. Patient reports he was not drinking for two weeks prior to his hospitalization. Discussed the damage that alcohol consumption has on the body and patient acknowledged. Patient reports he plans to avoid drinking entirely. Reports he has had periods of sobriety in the past. Patient states in the past when he was feeling well, he thought he could handle one drink but that this always lead to more drinks and that he realizes now he cannot drink at all. Patient reports he has attended AA meetings in the past and does not find them helpful at all. Discussed other types of support groups with patient. Patient reports he has been to detox six times and he is familiar with IOP. Patient reports he does not have access to technology and that he only has a flip phone. Patient reports he has one good friend who does not drink. Patient reports he plans to focus on his hobbies to stay busy, which include stamp collecting. Patient reports he has been on Campral and Naltrexone and that he did not find either helpful. Patient states he will skip doses when he plans to drink. Patient is not interested in Vivitrol. Patient reports he would be willing to get back on a medication for alcohol use disorder, stating he will accept anything that will help. Provided patient with the number for the [facility] and instructions to call when he is ready. Patient was familiar with [facility] and was agreeable to meeting with a Vessel Crew Member. This assembly instructions writer introduced patient to Gary Vessel Crew Member, who was familiar with patient from past encounters at [facility]. Vessel Crew Member discussed additional recovery supports with patient. Discussed case with patient's RN and CM.
--- NOTE | 2020-09-24 11:22 | MHC.CM.PN ---
Addendum entered by Brittney Srinivasan 09/24/20 12:14: telephone call to mr laine moody reviewed sdischarge plan with him i as below, he will provide transportatin home for patient and alvin call the foor when he can pick him up , he will also make sure their is food for him as he has been here since 09/12/20, and will take him to the pharmacy Original Note: NURSE JUNIOR DATA ANALYST NOTE ELECTRONIC MEDICAL RCORD REVIEWED SPOKE WITH JUVENAL FROM THE CARES TEAM , PER DOCUMENTATION HE NOTED Pedrito Esteves Male : 1960 [id number] 09/24/20 10:35 - Recovery Support Team by Juvenal Forrest [facility] Num: [id number] : 1960 Patient Age: 60 ( Recovery Support note: his principal technical writer met with patient to further discuss recovery resources and treatment options. Patient reports he was not drinking for two weeks prior to his hospitalization. Discussed the damage that alcohol consumption has on the body and patient acknowledged. Patient reports he plans to avoid drinking entirely. Reports he has had periods of sobriety in the past. Patient states in the past when he was feeling well, he thought he could handle one drink but that this always lead to more drinks and that he realizes now he cannot drink at all. Patient reports he has attended AA meetings in the past and does not find them helpful at all. Discussed other types of support groups with patient. Patient reports he has been to detox six times and he is familiar with IOP. Patient reports he does not have access to technology and that he only has a flip phone. Patient reports he has one good friend who does not drink. Patient reports he plans to focus on his hobbies to stay busy, which include stamp collecting. Patient reports he has been on Campral and Naltrexone and that he did not find either helpful. Patient states he will skip doses when he plans to drink. Patient is not interested in Vivitrol. Patient reports he would be willing to get back on a medication for alcohol use disorder, stating he will accept anything that will help. Provided patient with the number for the [facility] and instructions to call when he is ready. Patient was familiar with [facility] and was agreeable to meeting with a Business Lawyer. This principal technical writer introduced patient to Gary, Business Lawyer, who was familiar with patient from past encounters at [facility]. Business Lawyer discussed additional recovery supports with patient. Discussed case with patient's RN and CM. Initialized on 09/24/20 10:35 - END OF NOTE ) ALSO REFERRED TO THE [facility] COMM[facility]ITY NAVIGATION NURSES ,(HIGH UTILIZE, HISTORY OF SOME NON VOMPLIANCE WITH HIS DIABETIC MEDICATIONS) PATIENT WILL BE DISCHARGED HOME TODAY WITH [facility] FOR NURSING AND HOME PHYSICAL THEARPY DISCHARGE PLAN HOME WITH [facility] FOR NRUSING AND HOME PHYSICAL THEARPY, MARBLE CLEANER FOLLOW UP AND LISTING OF REQOUCES IN THE COMMUNITY GIVEN TO HIM BY THE CARES TEAM WORKER, INIATED REFERRAL TO THE [facility] NURSE NAVIGATOR REGAING HIGH UTILIZER AND DIAGNOSIS PCP PATIENT /FAMILY TO FOLLOW UP WITH PCP DR AUTUMN LÓPEZ TRANSPORTATION TO BE DETERMINED
[2020-09-24 11:35] LABS: Glucose, Whole Blood 241 mg/dL (60-115)
[2020-09-24 12:00] VITALS: BP 90/60; PULSE 72; O2SAT 99
--- NOTE | 2020-09-24 12:00 | P.PNIM_ITS ---
Subjective Subjective Date of Service: 09/24/20 Interval History: Has no issues overnight, BP is 80/50, report no symptoms ROS General - no fevers or chills Cardiovascular - no chest pain Respiratory - no shortness of breath or cough Abdominal- no abdominal pain, nausea, vomiting, diarrhea improved Physical Exam Vital Signs: Vital Signs: Last Vital Signs Temp 97.5 F 09/24/20 07:42 Pulse 92 09/24/20 07:42 Resp 17 09/24/20 07:42 BP 80/50 L 09/24/20 08:01 Pulse Ox 97 09/24/20 07:42 Body Mass Index 25.0 Const: Other: General - no acute distress, appears comfortable Cardiovascular - regular rate and rhythm, S1-S2 Lungs - normal respiratory effort, clear to auscultation bilaterally, no wheezing Abdomen - soft, nontender, no rebound or guarding Extremities - no edema bilaterally Neuro - awake and alert, no focal deficits Objective Data Current Medications Generic Name Dose Route Start Last Admin Trade Name Freq PRN Reason Stop Dose Admin Acetaminophen 650 mg 09/12/20 23:13 09/24/20 06:03 Acetaminophen 325 Mg Tablet PO 650 mg Q6H PRN Administration Pain, Mild (Pain Scale 1-3) Docusate Sodium 100 mg 09/12/20 23:13 Docusate Sodium 100 Mg Capsule PO DAILY PRN Constipation Folic Acid 1 mg 09/16/20 09:00 09/24/20 08:01 Folic Acid 1 Mg Tablet PO 1 mg DAILY JOSE Administration Gabapentin 400 mg 09/13/20 09:00 09/24/20 08:01 Gabapentin 400 Mg Capsule PO 400 mg TID JOSE Administration Insulin Human Lispro 0 unit 09/13/20 16:30 09/24/20 08:01 Insulin Lispro 100 Unit/Ml 3 Ml Vial SUBCUT 4 unit QIDACHS JOSE Administration Protocol Loperamide HCl 4 mg 09/20/20 09:40 09/20/20 11:57 Loperamide Hcl 2 Mg Capsule PO 4 mg Q6H PRN Administration Diarrhea Magnesium Oxide 400 mg 09/17/20 17:30 09/24/20 08:01 Magnesium Oxide 400 Mg Tablet PO 400 mg BIDPC JOSE Administration Midodrine 5 mg 09/20/20 15:00 09/24/20 08:01 Midodrine Hcl 5 Mg Tablet PO 5 mg TID JOSE Administration Omeprazole 20 mg 09/21/20 09:00 09/24/20 06:04 Omeprazole 20 Mg Capsule. PO 20 mg DAILY@0630 JOSE Administration Ondansetron HCl 4 mg 09/12/20 23:13 09/20/20 11:57 Ondansetron Hcl 4 Mg/2 Ml Vial IVPUSH 4 mg Q8H PRN Administration Nausea and Vomiting Pharmacy Consult 1 each 09/12/20 17:11 Consult Rx Perform Med Rec MISCELLANE ONCE PRN Consult order Quetiapine Fumarate 100 mg 09/21/20 21:00 09/23/20 21:02 Quetiapine Fumarate 100 Mg Tablet PO 100 mg BEDTIME JOSE Administration Sodium Chloride 3 ml 09/13/20 00:00 09/24/20 08:01 0.9 % Sodium Chloride Flush 3 Ml Syringe IVFLUSH Not Given QSHIFT JOSE Thiamine HCl 100 mg 09/19/20 09:00 09/24/20 08:01 Thiamine Hcl 100 Mg Tablet PO 100 mg DAILY JOSE Administration Labs CBC & Chem 7: 09/21/20 06:28 09/21/20 06:28 Microbiology Microbiology Results: Microbiology 09/12/20 18:08 Blood - Venous Blood Culture - Final No growth after 5 days. 09/12/20 17:23 Blood - Venous Blood Culture - Final No growth after 5 days. Assessment and Plan (1) LIANA (acute kidney injury): Status: Acute (2) Acute pancreatitis: Status: Acute Assessment and Plan: 60-year-old male with past medical history of alcohol abuse, diabetes who presented to the hospital after being found disheveled in his home on the floor complaining of abd pain 1. Acute alcoholic pancreatitis this was treated conservatively and has resolved. He has been advanced to regular diet which he is tolerating alcohol cessation as been advised. We were hoping he goes to rehab however denied by insurance. Here is alternate plan: He met with CARE team again and more receptive, he also has met with the resource recovery engineer whom will follow up with him for etoh abuse and was given additional commuinity resources , referreed to the [facility] conmmunity navigation nurse for diabetic education, management and medication reconciation and will have [facility] and home PT 2. Diarrhea--CD was negative and given Imodium PRN and now resolved. 3. Pancytopenia with severe thrombocytopenia/anemia hematology input appreciatedsuspected secondary to chronic alcoholism and relatively stable. No bleeding 4. LIANA--likely related to dehydration, hydrated and resolved. 5. hypokalemia, hypomagnesemia--related to chronic alcoholism and this has been treated and resolved. 6. etoh dependence monitor ciwa, no signs of withdrawal at this time--see plan as outlined in 1. 7. Dysphagia--gross followed by speech and seemed to have resolved. His t olerating regular diet. 8. weakness due to deconditioning but this has seemed to have improved. Will he will have home PT. 9. History of bipolar was previously on multiple meds, which he stopped for a month or two (per his own admission / step-daughter report) restarted his seroquel at lower dose -- 100mg will need outpatient f/u with his psychiatrist DVT prophylaxis- mechanical due to thrombocytopenia dispo: Home with [facility].
--- NOTE | 2020-09-24 13:43 | MHC.RECOVSUP ---
? Reason for consult:Continuity of care o Current location: [facility] o Identified substance use concern: - Withdrawal - Seeking ATS (detox) - Support ? Intervention: o MAT started or to be started o Community resources provided o Harm reduction discussion ? Plan: o Referral to CCC o Patient to follow up with [facility] after discharge ? Additional information: Pt. familar with this SALES [employer]PRESENTATIVE [facility]. Pt. given community resources,explained harm reduction,his danny, vivitrol, and pt.currently in MAT with Naltrexone.
[2020-09-26 09:04] LABS: Glucose, Whole Blood 427 mg/dL (60-115)
== END 2020-09-24 14:31 | disposition skilled nursing facility (03) | DRG 282 ==
LOC: HO.ED 23:13 → HO.EDOVER 09-13 00:03 → HO.IMC 09-13 06:39 → HO.S3 09-16 15:26
PROVIDERS: Family Medicine; Internal Medicine; Internal Medicine Gastroenterology; Nurse Practitioner Family; Admitting Provider Internal Medicine; Emergency Provider Emergency Medicine; PCP Internal Medicine; Visit Provider Internal Medicine
DX: K85.20 Alcohol induced acute pancreatitis without necrosis or infection (principal); N17.9 Acute kidney failure, unspecified; D61.818 Other pancytopenia; E83.42 Hypomagnesemia; R13.10 Dysphagia, unspecified; F31.9 Bipolar disorder, unspecified; E86.0 Dehydration; E78.5 Hyperlipidemia, unspecified; F10.20 Alcohol dependence, uncomplicated; R19.7 Diarrhea, unspecified; E11.9 Type 2 diabetes mellitus without complications; E87.6 Hypokalemia; F32.9 Major depressive disorder, single episode, unspecified; F90.9 Attention-deficit hyperactivity disorder, unspecified type; Z20.822 Contact with and (suspected) exposure to COVID-19; Z79.4 Long term (current) use of insulin; Z79.899 Other long term (current) drug therapy
CPT/HCPCS: 36415; 70450; 71045; 73590; 74176; 74178; 80048; 80076; 80307; 80320; 81001; 82009; 82272; 82550; 82607; 82746; 82803; 82947; 83540; 83605; 83615; 83690; 83735; 83930; 84100; 84484; 85025; 85045; 85060; 85384; 85610; 86850; 86900; 86901; 87040; 87324; 87449; 87635; 92526; 92610; 93005; 96361; 96365; 96366; 96367; 96375; 97116; 97162; 99284; 99285; J0696; J2405; J2543; J3411; J3475; P9035; Q9967

== ENCOUNTER 2020-09-25 15:39 | Emergency (ER) | payer OTHER, SELFPAY ==
[2020-09-25 15:47] VITALS: BP 92/54; BP 96/40; PULSE 90; PULSE 91; RESP 16; TEMP 36.7; O2SAT 98; BMI 25.0
--- NOTE | 2020-09-25 16:58 | XR_ITS ---
EXAMINATION: XR CHEST CLINICAL INFORMATION: Right-sided chest pain COMPARISON: 09/12/2020 TECHNIQUE: Frontal view of the chest was obtained. FINDINGS: The cardiomediastinal silhouette is within normal limits. The lungs are well expanded. There is no focal consolidation, edema, or effusion. No pneumothorax. No acute osseous abnormality. XR/XR chest 1V IMPRESSION: No acute pulmonary process.
--- NOTE | 2020-09-25 16:58 | ECG_ITS ---
Test Reason : RIGHT SIDED PAIN Blood Pressure : / mmHG Vent. Rate : 082 BPM Atrial Rate : 082 BPM P-R Int : 144 ms QRS Dur : 072 ms QT Int : 370 ms P-R-T Axes : -17 017 022 degrees QTc Int : 432 ms Normal sinus rhythm Normal ECG When compared with ECG of 20-SEP-2020 11:53, Nonspecific T wave abnormality no longer evident in Anterior leads Referred By: Melvin Hernandez Electronically Signed By:KYLE MONTEZ
--- NOTE | 2020-09-25 17:01 | ED.GENADULT ---
HPI - General Adult General Chief complaint: Psychiatric Symptoms Stated complaint: SI,-SEC 12 Time Seen by Provider: 09/25/20 16:04 Source: patient Mode of arrival: EMS Limitations: no limitations History of Present Illness HPI narrative: 60-year-old male who presents emergency department complaining of right-sided body pain, weakness, not feeling well and suicidal ideation. The patient was admitted to the hospital from 09/12/2019 until yesterday 09/24/2020 for alcoholic pancreatitis and alcohol abuse. In reviewing the notes, the patient was denied detox secondary to insurance. He states this is going home he has not felt well. He states that the right side of his body (right chest and right abdomen) is painful. He describes this as a constant, nonstop, pressure-like pain is if someone is sitting on him. He states the pain is 10/10. He states that he is feeling suicidal. He states that he wants to blow his brains out or drink a whole bottle of Draino. He states that he has had suicidal ideation in the past and usually is self-abusive in beats himself up when he suicidal. He denied fever, chills, cough, nausea, vomiting, changes bowel movements. He states that he continues to drink alcohol and drinks 1/2 pt of root beer vodka per day. He denies drug use. Related Data Home Medications Medication Instructions Recorded Confirmed nabumetone 750 mg PO BID 09/25/20 09/25/20 Previous Rx's Medication Instructions Recorded insulin lispro 100 unit/mL 12 unit SUBCUT TID 30 Days #15 ml 05/31/20 subcutaneous pen cholecalciferol (vitamin D3) 25 25 mcg PO DAILY #90 cap 08/12/20 mcg (1,000 unit) capsule Basaglar KwikPen U-100 Insulin 10 unit SUBCUT QPM #0 ml 09/23/20 midodrine 5 mg PO TID #1 tab 09/23/20 quetiapine 100 mg PO BEDTIME #1 tab 09/23/20 Allergies Allergy/AdvReac Type Severity Reaction Status Date / Time acamprosate Allergy Unknown redness Verified 06/11/20 08:50 and itching Docusate Sodium Allergy Unknown Migraines Verified 07/16/20 14:05 Review of Systems Review of Systems: Yes all other systems are reviewed and are negative Neurologic: Reports Abnormal speech present PMFSH Past Medical History Source: unable to obtain Medical History Attention deficit disorder Degenerative disc disease, cervical Depression Diabetes mellitus Dyslipidemia History of substance abuse Hypotestosteronism Osteoarthritis of right hand Pancreatitis Surgical History History of surgery Family History Family History Father Cancer Mother Cancer Diabetes Social History Social History Household Members: None Housing: Unknown / Unable to assess Alcohol intake: current Alcohol intake frequency: 0-2 drinks per day Alcohol type: hard liquor Smoking Status: Current every day smoker Tobacco Type: Cigarette Advance Directives: No Advance Directives Information Provided: Yes service: No Current occupational status: unemployed Current occupation: Right Handed Physical Exam Vital Signs: Vital Signs: Last Vital Signs Temp 98.1 F 09/25/20 15:47 Pulse 88 09/25/20 19:52 Resp 16 09/25/20 19:52 BP 112/82 09/25/20 19:52 Pulse Ox 100 09/25/20 19:52 Body Mass Index 25.0 Const: General: cooperative Nutritional Appearance: average body habitus Orientation/consciousness: oriented to person and oriented to place Limitations: no limitations HENMT: Head: Yes normal to inspection, Yes normocephalic and Yes atraumatic Ears: external ears normal General nose exam: Normal external nose present Face and sinus: Yes normal facial exam Mouth: Normal oral and palatal mucosa present Throat: Yes posterior oropharynx normal Eyes: Periorbital: periorbital findings normal Eyelids: Yes eyelids normal Conjunctivae: conjunctivae normal Sclerae: sclerae normal Corneas: corneas normal Pupils: Equal, round and reactive pupils present Direct Ophthalmoscopy: normal light reflex Neck: Neck: Yes full ROM, Yes no lymphadenopathy, Yes no meningeal signs, Yes trachea midline and Yes supple Chest: Chest palpation & inspection: normal inspection of the chest and normal palpation of entire chest wall Resp: Effort & Inspection: normal respiratory effort and able to speak in complete sentences Auscultation: clear to auscultation bilaterally Cardio: Rate: regular rate Rhythm: regular rhythm Heart sounds: S1 normal heart sound present, S2 normal heart sound present and no murmurs GI: Inspection: Yes normal to inspection Palpation (GI): Soft to palpation, Tenderness to palpation present (GI) (Moderate RUQ, RLQ and midepigastric), no guarding, not rigid and No hepatosplenomegaly present : General: Yes no CVA tenderness Back/Spine/Pelvis: Back: no CVA tenderness Cervical Spine: normal cervical lordosis Thoracic/Lumbar Spine: thoracic and lumbar spine normal to inspection Skin: Lesions: no lesions Rashes: no rashes Wounds: no wounds Neuro: General: oriented to person, oriented to place and no meningeal signs Cranial nerves: Yes Equal, round and reactive pupils present Cognition (Neuro): normal cognition Speech: Abnormal speech present Motor exam (neuro): 5/5 motor strength present throughout Extrem: General: Yes normal to inspection and Yes full ROM Psych: Appearance: well kempt Mental Status: mental status grossly normal Speech and movement: Normal speech and movement present Affect: normal affect Attitude: cooperative Thought process: Normal thought process present Thought content: Suicidality present Course Course Course Narrative: 60-year-old male who was hospitalized from 09/12/2020 until yesterday 09/24/2020 for alcohol abuse and alcoholic pancreatitis who presents to emergency department complaining of suicidal ideation with a plan to either blow his brains out or drink a bottle of drain 0. He also complained of right-sided chest and abdominal pain. Physical examination did reveal right upper quadrant, right lower quadrant and mid epigastric abdominal tenderness. I did order a laboratory workup on this patient including an EKG and a chest x-ray. Patient does appear to be dehydrated and was given normal saline x1 L IV. 2046: The patient's laboratory evaluation did reveal a pancytopenia which is chronic for this patient, patient had an elevated glucose greater than 400 which was treated with 2 L of normal saline and IV insulin with improvement of his glucose. Patient has LFT abnormalities which is consistent with his alcohol abuse. Patient's lipase was 260 which is markedly improved from 09/13/2020 when it was 1079. The patient is medically cleared. I will order the patient's outpatient medications and the patient is medically cleared to be transferred to the the [facility] for crisis evaluation. He that he is still suicidal. Medical Decision Making Lab Data Result diagrams: 09/25/20 17:49 09/25/20 17:50 Labs: Lab Results 09/25/20 09/25/20 09/25/20 Range/Units 17:46 17:46 17:46 WBC (4.8-10.8) X10*3/uL RBC (4.60-5.80) X10*6/uL Hgb (14.0-18.0) g/dl Hct (42-52) % MCV (80-98) fL MCH (27.0-33.0) pg MCHC (31.0-36.0) g/dl RDW (11.0-16.0) % Plt Count (160-400) X10*3/uL MPV (9.4-12.4) fL Immature Gran % (Auto) (0.0-0.4) % Neut % (Auto) (45-73) % Lymph % (Auto) (20-40) % [place] % (Auto) (2-11) % Eos % (Auto) (0-4) % Baso % (Auto) (0-2) % Lymph # (Auto) (1.2-4.9) X10*3/uL [place] # (Auto) (0.1-1.2) X10*3/uL Eos # (Auto) (0.0-0.4) X10*3/uL Baso # (Auto) (0.0-0.2) X10*3/uL Abs Immat Gran (auto) (0.00-0.03) X10*3/uL Absolute Neuts (auto) (2.0-8.3) X10*3/uL Absolute Nucleated RBC (0.0-0.012) X10*3/uL Nucleated RBC % (auto) (0.0-0.2) /100WBC Smear Tech's Comments Sodium (135-145) mmol/L Potassium (3.3-5.1) mmol/L Chloride (96-108) mmol/L Carbon Dioxide (22-29) mmol/L Anion Gap (12-20) BUN (9-16) mg/dL Creatinine (0.5-1.4) mg/dL Estim Creat Clear Calc Estimated GFR POC Glucose (60-115) mg/dL Random Glucose (60-115) mg/dL Calcium (8.4-10.2) mg/dL Total Bilirubin (0.0-1.0) mg/dL AST (5-37) U/L ALT (0-40) U/L Alkaline Phosphatase (39-117) U/L Total Protein (6.5-8.0) g/dL Albumin (3.5-5.0) g/dL Lipase (8-78) U/L Urine Color YELLOW Urine Appearance CLEAR Urine pH 6.0 (5.0-8.0) Ur Specific Hartman 1.015 (1.005-1.025) Urine Protein NEG (NEG-TRACE) MG/DL Urine Glucose (UA) >=1000 H (NEG) MG/DL Urine Ketones NEG (NEG) MG/DL Urine Blood 2+ H (NEG) Urine Nitrite NEG (NEG) Ur Leukocyte Esterase NEG (NEG) Urine RBC 10-14 H (0) /HPF Urine WBC 1-4 (0-4) /HPF Ur Squamous Epith Cells 1+ /LPF Urine Bacteria NONE /LPF Urine Opiates Screen Not Detected (Not Detect) Ur Barbiturates Screen Not Detected (Not Detect) Ur Phencyclidine Scrn Not Detected (Not Detect) Ur Amphetamines Screen Not Detected (Not Detect) U Benzodiazepines Scrn Not Detected (Not Detect) Urine Cocaine Screen Not Detected (Not Detect) U Marijuana (THC) Screen Not Detected (Not Detect) Ethyl Alcohol mg/dL COVID-19 ([facility]AYLA) Negative (Negative) COVID-19 Clin Com See Note 09/25/20 09/25/20 09/25/20 Range/Units 17:49 17:50 17:50 WBC 2.8 L (4.8-10.8) X10*3/uL RBC 2.51 L (4.60-5.80) X10*6/uL Hgb 8.0 L (14.0-18.0) g/dl Hct 23.6 L (42-52) % MCV 94.0 (80-98) fL MCH 31.9 (27.0-33.0) pg MCHC 33.9 (31.0-36.0) g/dl RDW 14.9 (11.0-16.0) % Plt Count 81 L D (160-400) X10*3/uL MPV 10.6 (9.4-12.4) fL Immature Gran % (Auto) 0.7 H (0.0-0.4) % Neut % (Auto) 69.9 (45-73) % Lymph % (Auto) 19.1 L (20-40) % [place] % (Auto) 7.8 (2-11) % Eos % (Auto) 2.1 (0-4) % Baso % (Auto) 0.4 (0-2) % Lymph # (Auto) 0.5 L (1.2-4.9) X10*3/uL [place] # (Auto) 0.2 (0.1-1.2) X10*3/uL Eos # (Auto) 0.1 (0.0-0.4) X10*3/uL Baso # (Auto) 0.0 (0.0-0.2) X10*3/uL Abs Immat Gran (auto) 0.02 (0.00-0.03) X10*3/uL Absolute Neuts (auto) 2.0 (2.0-8.3) X10*3/uL Absolute Nucleated RBC 0.000 (0.0-0.012) X10*3/uL Nucleated RBC % (auto) 0.0 (0.0-0.2) /100WBC Smear Tech's Comments VERIFIED Sodium 133 L (135-145) mmol/L Potassium 4.2 (3.3-5.1) mmol/L Chloride 98 (96-108) mmol/L Carbon Dioxide 24 (22-29) mmol/L Anion Gap 15 (12-20) BUN 10 (9-16) mg/dL Creatinine 0.94 (0.5-1.4) mg/dL Estim Creat Clear Calc 76.3 Estimated GFR > 60 POC Glucose (60-115) mg/dL Random Glucose 410 H* (60-115) mg/dL Calcium 8.3 L D (8.4-10.2) mg/dL Total Bilirubin 3.4 H (0.0-1.0) mg/dL AST 46 H D (5-37) U/L ALT 51 H (0-40) U/L Alkaline Phosphatase 194 H D (39-117) U/L Total Protein 6.2 L D (6.5-8.0) g/dL Albumin 3.1 L (3.5-5.0) g/dL Lipase 260 H (8-78) U/L Urine Color Urine Appearance Urine pH (5.0-8.0) Ur Specific Hartman (1.005-1.025) Urine Protein (NEG-TRACE) MG/DL Urine Glucose (UA) (NEG) MG/DL Urine Ketones (NEG) MG/DL Urine Blood (NEG) Urine Nitrite (NEG) Ur Leukocyte Esterase (NEG) Urine RBC (0) /HPF Urine WBC (0-4) /HPF Ur Squamous Epith Cells /LPF Urine Bacteria /LPF Urine Opiates Screen (Not Detect) Ur Barbiturates Screen (Not Detect) Ur Phencyclidine Scrn (Not Detect) Ur Amphetamines Screen (Not Detect) U Benzodiazepines Scrn (Not Detect) Urine Cocaine Screen (Not Detect) U Marijuana (THC) Screen (Not Detect) Ethyl Alcohol < 10 mg/dL COVID-19 ([facility]LA) (Negative) COVID-19 Clin Com 09/25/20 09/25/20 Range/Units 19:47 20:41 WBC (4.8-10.8) X10*3/uL RBC (4.60-5.80) X10*6/uL Hgb (14.0-18.0) g/dl Hct (42-52) % MCV (80-98) fL MCH (27.0-33.0) pg MCHC (31.0-36.0) g/dl RDW (11.0-16.0) % Plt Count (160-400) X10*3/uL MPV (9.4-12.4) fL Immature Gran % (Auto) (0.0-0.4) % Neut % (Auto) (45-73) % Lymph % (Auto) (20-40) % [place] % (Auto) (2-11) % Eos % (Auto) (0-4) % Baso % (Auto) (0-2) % Lymph # (Auto) (1.2-4.9) X10*3/uL [place] # (Auto) (0.1-1.2) X10*3/uL Eos # (Auto) (0.0-0.4) X10*3/uL Baso # (Auto) (0.0-0.2) X10*3/uL Abs Immat Gran (auto) (0.00-0.03) X10*3/uL Absolute Neuts (auto) (2.0-8.3) X10*3/uL Absolute Nucleated RBC (0.0-0.012) X10*3/uL Nucleated RBC % (auto) (0.0-0.2) /100WBC Smear Tech's Comments Sodium (135-145) mmol/L Potassium (3.3-5.1) mmol/L Chloride (96-108) mmol/L Carbon Dioxide (22-29) mmol/L Anion Gap (12-20) BUN (9-16) mg/dL Creatinine (0.5-1.4) mg/dL Estim Creat Clear Calc Estimated GFR POC Glucose 396 H* 290 H (60-115) mg/dL Random Glucose (60-115) mg/dL Calcium (8.4-10.2) mg/dL Total Bilirubin (0.0-1.0) mg/dL AST (5-37) U/L ALT (0-40) U/L Alkaline Phosphatase (39-117) U/L Total Protein (6.5-8.0) g/dL Albumin (3.5-5.0) g/dL Lipase (8-78) U/L Urine Color Urine Appearance Urine pH (5.0-8.0) Ur Specific Hartman (1.005-1.025) Urine Protein (NEG-TRACE) MG/DL Urine Glucose (UA) (NEG) MG/DL Urine Ketones (NEG) MG/DL Urine Blood (NEG) Urine Nitrite (NEG) Ur Leukocyte Esterase (NEG) Urine RBC (0) /HPF Urine WBC (0-4) /HPF Ur Squamous Epith Cells /LPF Urine Bacteria /LPF Urine Opiates Screen (Not Detect) Ur Barbiturates Screen (Not Detect) Ur Phencyclidine Scrn (Not Detect) Ur Amphetamines Screen (Not Detect) U Benzodiazepines Scrn (Not Detect) Urine Cocaine Screen (Not Detect) U Marijuana (THC) Screen (Not Detect) Ethyl Alcohol mg/dL COVID-19 (KAYLA) (Negative) COVID-19 Clin Com ECG Data Attestation: I personally reviewed and interpreted this ECG as follows: Interpretation: 1724: Normal sinus rhythm with a rate of 82, normal TX, QRS and QTC intervals, no ST segment elevation or depression, nonspecific T-wave abnormalities, this is a normal EKG. Discharge Plan Discharge Prescriptions: No Action insulin lispro [Admelog SoloStar U-100 Insulin] 100 unit/mL insulin pen 12 unit subcut TID 30 Days Qty: 15 RF: 1 cholecalciferol (vitamin D3) 25 mcg (1,000 unit) capsule 25 mcg PO DAILY Qty: 90 RF: 0 midodrine 5 mg Tablet 5 mg PO TID Qty: 1 RF: 0 quetiapine 100 mg Tablet 100 mg PO BEDTIME Qty: 1 RF: 0 Basaglar KwikPen U-100 Insulin 100 unit/mL (3 mL) Insulin Pen 10 unit SUBCUT QPM Qty: 0 RF: 0 nabumetone 750 mg tablet 750 mg PO BID RF: 0
[2020-09-25 17:27] VITALS: BP 94/64; PULSE 83; RESP 16; O2SAT 98
[2020-09-25 17:59] LABS: Basophils Percent Auto 0.4 % (0-2); Eosinophils Absolute Auto 0.1 X10*3/uL (0.0-0.4); Eosinophils Percent Auto 2.1 % (0-4); Hematocrit 23.6 % (42-52); Imm Gran Abs Auto 0.02 X10*3/uL (0.00-0.03); Imm Gran Pct Auto 0.7 % (0.0-0.4); Lymphocytes Absolute Auto 0.5 X10*3/uL (1.2-4.9); Lymphocytes Percent Auto 19.1 % (20-40); MANUAL DIFF FLAG SCAN; Mean Corpuscular HGB Conc 33.9 g/dl (31.0-36.0); Mean Corpuscular Hemoglobin 31.9 pg (27.0-33.0); Mean Platelet Volume 10.6 fL (9.4-12.4); Monocytes Absolute Auto 0.2 X10*3/uL (0.1-1.2); Monocytes Percent Auto 7.8 % (2-11); Neutrophils Percent Auto 69.9 % (45-73); Red Blood Count 2.51 X10*6/uL (4.60-5.80); Red Cell Distribution Width 14.9 % (11.0-16.0); SCAN SMEAR FLAG 1; White Blood Count 2.8 X10*3/uL (4.8-10.8)
[2020-09-25 18:01] LABS: Glucose Urine UA >=1000 MG/DL (NEG); Leukocyte Esterase Urine NEG (NEG); Nitrite Urine NEG (NEG); Specific Gravity - Urine 1.015 (1.005-1.025); Urine Blood 2+ (NEG); Urine Ketones NEG (NEG); Urine Protein NEG (NEG-TRACE)
[2020-09-25 18:02] LABS: Appearance Urine CLEAR; Color Urine YELLOW
[2020-09-25 18:08] LABS: Squamous Epithelial Cell Urine 1+ /LPF
[2020-09-25] MEDS: 0.9 % Sodium Chloride 1,000 ML 999 ML IV ×2 (18:11→19:49)
[2020-09-25 18:12] LABS: COVID-19 Test Negative (Negative)
[2020-09-25 18:19] LABS: Platelet Count 81 X10*3/uL (160-400)
[2020-09-25 18:20] LABS: SLIDE REVIEW VERIFIED
[2020-09-25 18:27] LABS: Ethanol < 10 mg/dL
[2020-09-25 18:30] LABS: Amphetamine Screen Urine Not Detected (Not Detect); Barbiturates, Urine Not Detected (Not Detect); Benzodiazepines Screen Urine Not Detected (Not Detect); Cannabinoid Screen Urine Not Detected (Not Detect); Cocaine Screen Urine Not Detected (Not Detect); Opiate Screen Urine Not Detected (Not Detect); Phencyclidine Screen Urine Not Detected (Not Detect)
[2020-09-25 18:41] LABS: Alanine Aminotransferase 51 U/L (0-40); Albumin Level 3.1 g/dL (3.5-5.0); Alkaline Phosphatase 194 U/L (39-117); Anion Gap 15 (12-20); Aspartate Amino Transferase 46 U/L (5-37); Bilirubin Total 3.4 mg/dL (0.0-1.0); Blood Urea Nitrogen 10 mg/dL (9-16); Calcium 8.3 mg/dL (8.4-10.2); Carbon Dioxide 24 mmol/L (22-29); Chloride 98 mmol/L (96-108); Creatinine Clr Calc Pharmacy 76.3; Estimated Glomerular Filt Rate > 60; Glucose Random 410 mg/dL (60-115); Lipase 260 U/L (8-78); Potassium 4.2 mmol/L (3.3-5.1); Sodium 133 mmol/L (135-145); Total Protein 6.2 g/dL (6.5-8.0)
[2020-09-25] MEDS: Insulin Regular, Human 100 UNIT/ML 3 ML VIAL 10 UNIT IVPUSH (19:49)
[2020-09-25 19:52] VITALS: BP 112/82; PULSE 88; RESP 16; O2SAT 100
[2020-09-25 19:52] LABS: Glucose, Whole Blood 396 mg/dL (60-115)
--- NOTE | 2020-09-25 19:57 | PC.NURSE ---
Pt medicated per OCT. POC obtained by MELISSA Merrill. Pt voiding in urinal without difficulty. VSS. Sitter at bedside. Pt provided with warm blankets, lights dim for comfort. Continue to monitor.
[2020-09-25 20:49] LABS: Glucose, Whole Blood 290 mg/dL (60-115)
--- NOTE | 2020-09-25 20:56 | PC.NURSE ---
This RN updating family on pt condition and plan of care. Per family, pt has been using alcohol as a coping mechanism since his mother several years ago. Per family, pt blames himself for his mothers . PD removing guns from pts home last week as pt doesn't have an FID card. Per family, pt had agreed to [place] [facility] [place] was an issue with [place] so he was sent home. Per family, pt lives alone and has never been without alcohol this long. Per family, pt taking Seroquel for depression but has been without Seroquel since April due to noncompliance. Per family, pt recently restarting by PCP on Seroquel. Per family, there is no family for him to stay with due to his declining health. Gaby Perez [phone]
--- NOTE | 2020-09-25 22:04 | PC.NURSE ---
Pt ambulating to the bathroom with walker and sitter with a steady gait. Per MD, plan to transfer to pod. 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
--- NOTE | 2020-09-25 22:12 | PC.NURSE ---
Report given to Erik, plan to transfer to pod room 5.
--- NOTE | 2020-09-25 23:28 | PC.NURSE ---
[facility] faxed/called spoke with Tavia/confirmed receipt of referral. No ETA
[2020-09-25 23:43] LABS: Glucose, Whole Blood 279 mg/dL (60-115)
[2020-09-25] MEDS: Insulin Glargine,Hum.rec.anlog 100 UNIT/ML 10 ML VIAL 10 UNIT SUBCUT (23:47)
--- NOTE | 2020-09-25 23:59 | PC.NURSE ---
POC was 279 @ 2335, provider notified/no new order, administered scheduled lantus 10 units. Patient compliant. Denied distress. Will continue to monitor.
--- NOTE | 2020-09-26 03:44 | PC.NURSE ---
HUNTERN completed assessment, patient disposition updated, patient is on section 12 in-patient bed search, will continue to monitor.
[2020-09-26 06:54] LABS: Glucose, Whole Blood 171 mg/dL (60-115)
--- NOTE | 2020-09-26 07:17 | PC.NURSE ---
SITTING AT DESK, EATING BKFST. INPT BEDSEARCH CONTINUES. COOPERATIVE
[2020-09-26] MEDS: Insulin Lispro 100 UNIT/ML 3 ML VIAL 12 UNIT SUBCUT (08:51)
[2020-09-26 08:52] VITALS: BP 108/78; PULSE 77
[2020-09-26] MEDS: Midodrine HCl 5 MG TABLET PO (08:52)
[2020-09-26] MEDS: Cholecalciferol (Vitamin D3) 25 MCG TABLET PO (08:54)
[2020-09-26 09:01] VITALS: BP 108/78; PULSE 77; TEMP 36.3; O2SAT 99
[2020-09-26 09:25] LABS: Alanine Aminotransferase 48 U/L (0-40); Albumin Level 2.7 g/dL (3.5-5.0); Alkaline Phosphatase 169 U/L (39-117); Aspartate Amino Transferase 62 U/L (5-37); Bilirubin Direct 2.6 mg/dL (0.0-0.5); Bilirubin Total 2.9 mg/dL (0.0-1.0); Total Protein 5.5 g/dL (6.5-8.0)
--- NOTE | 2020-09-26 12:38 | PC.NURSE ---
PT EATING LUNCH. NO C/O. BEDSEARCH CONTINUES
[2020-09-26 12:53] LABS: Glucose, Whole Blood 71 mg/dL (60-115)
[2020-09-26 16:20] VITALS: BP 120/80; PULSE 68; RESP 18; TEMP 36.1; O2SAT 98
--- NOTE | 2020-09-26 16:41 | PC.NURSE ---
PATIENT ACCEPTED AT [facility], DR. MCDONALD ACCEPTING. NURSE TO NURSE REPORT CALLED.
[2020-09-26] MEDS: Nicotine 21 MG PATCH.TD24 TRANSDERMA (18:36)
== END 2020-09-26 18:45 | disposition short-term general hospital (02) ==
PROVIDERS: Physician Assistant; Emergency Provider Emergency Medicine Emergency Medical Services; PCP Internal Medicine
DX: R07.9 Chest pain, unspecified (principal); R10.9 Unspecified abdominal pain; R45.851 Suicidal ideations; E11.65 Type 2 diabetes mellitus with hyperglycemia; R79.89 Other specified abnormal findings of blood chemistry; Z20.822 Contact with and (suspected) exposure to COVID-19; F10.10 Alcohol abuse, uncomplicated; Y90.0 Blood alcohol level of less than 20 mg/100 ml; K86.0 Alcohol-induced chronic pancreatitis; D61.818 Other pancytopenia; F17.210 Nicotine dependence, cigarettes, uncomplicated; Z79.4 Long term (current) use of insulin; Z79.899 Other long term (current) drug therapy
CPT/HCPCS: 36415; 71045; 80053; 80076; 80307; 80320; 81001; 82947; 83690; 85025; 87635; 93005; 96361; 96374; 99285

== ENCOUNTER 2021-02-09 11:52 | Inpatient (IN) | payer OTHER, SELFPAY ==
--- NOTE | ~2021-02-09 | CT_ITS ---
EXAMINATION: CT ABDOMEN AND PELVIS WITHOUT CONTRAST CLINICAL INFORMATION: Right lower quadrant pain COMPARISON: Previous CT of the abdomen and pelvis most recent August 2020 TECHNIQUE: Multidetector volumetric imaging was performed from the superior aspect of the liver through the pubic symphysis. Sagittal and coronal reformatted images were obtained on the technologist's workstation. This CT examination was performed using dose optimization techniques as appropriate, variously including the following: *Automated exposure control *Adjustment of mA and/or kV according to patient size (this includes techniques or standardized protocols for targeted exams where dose is matched to indication/reason for exam; i.e. extremities or head) *Use of iterative reconstruction technique DLP: 441 mGy-cm FINDINGS: LUNG BASES: The visualized lung bases are unremarkable. LIVER, GALLBLADDER, AND BILIARY TREE: The liver is normal in size, shape, and attenuation. No focal hepatic lesion or biliary ductal dilatation is present. The gallbladder is unremarkable with no evidence of radiopaque gallstones, gallbladder wall thickening, or obvious pericholecystic inflammatory changes. PANCREAS: There are calcifications in the pancreas suggestive of chronic pancreatitis. The largest measures 4 x 5 mm. There is a new cyst in the tail of the pancreas. This measures 3.8 x 4.8 cm and has a slightly thickened wall. There is stranding of the surrounding fat and thickening of the left pararenal fascia. SPLEEN: Unremarkable. ADRENAL GLANDS: Unremarkable. KIDNEYS AND URETERS: There is a 1.5 cm low-attenuation the left kidney probably representing a cyst. BLADDER: Unremarkable. GASTROINTESTINAL TRACT: There are fluid-filled slightly distended loops of small and proximal large bowel. No transition zone is seen and this probably represents an ileus. The appendix is unremarkable. ABDOMINAL WALL: There is a small left inguinal hernia containing fat and small umbilical hernia containing fat. LYMPH NODES: Normal. VASCULAR: There is evidence of atherosclerotic disease. No aneurysm is seen PELVIC VISCERA: Unremarkable. OSSEOUS STRUCTURES: There are degenerative changes of the spine. CT/CT abdomen pelvis wo con IMPRESSION: Fluid-filled distended small and proximal large bowel suggestive of an ileus. Normal-appearing appendix. Calcifications in the pancreas suggestive of chronic pancreatitis. New slightly complex cyst in the tail the pancreas measuring 3.8 x 4.8 cm and stranding of the surrounding fat and thickening of the left anterior pararenal fascia. This probably represents a pseudocyst and changes from pancreatitis.
[2021-02-09 11:59] LABS: Glucose, Whole Blood 341 mg/dL (60-115)
--- NOTE | 2021-02-09 12:01 | ED.ABDPAIN ---
HPI - Abdominal Pain General Chief Complaint: Abdominal Pain Stated Complaint: ABD PAIN Time Seen by Provider: 02/09/21 11:54 Source: patient, EMS and old records reviewed Mode of arrival: EMS Limitations: no limitations History of Present Illness MD elicited complaint: abdominal pain Pertinent past history: other (ETOH and pancreatitis) Onset (ago): day(s) (2) Pain Consistency: constant Location: RLQ Severity: moderate Quality: stabbing Radiation: none Migration to: no migration Exacerbating factors: vomiting and movement Relieving factors: nothing Associated symptoms: nausea, vomiting, diarrhea and chills Related Data Home Medications Medication Instructions Recorded Confirmed nabumetone 750 mg PO BID 09/25/20 09/25/20 Previous Rx's Medication Instructions Recorded cholecalciferol (vitamin D3) 25 25 mcg PO DAILY #90 cap 08/12/20 mcg (1,000 unit) capsule midodrine 5 mg PO TID #1 tab 09/23/20 quetiapine 100 mg PO BEDTIME #1 tab 09/23/20 blood sugar diagnostic #100 ea 12/30/20 blood-glucose meter #1 ea 12/30/20 insulin glargine 100 unit/mL (3 10 unit SUBCUT QPM #15 ml 12/30/20 mL) subcutaneous pen insulin lispro 100 unit/mL 12 unit SUBCUT TID 30 Days #15 ml 12/30/20 subcutaneous pen lancets 28 gauge #100 ea 12/30/20 pen needle, diabetic 31 gauge x #1200 ea 12/30/2001/05 Allergies Allergy/AdvReac Type Severity Reaction Status Date / Time acamprosate Allergy Unknown redness Verified 06/11/20 08:50 and itching Docusate Sodium Allergy Unknown Migraines Verified 07/16/20 14:05 Review of Systems Review of Systems Constitutional : No Weight loss, No Fever, No Chills ENT/Mouth : No sore throat, No Rhinorrhea Eyes: No Swelling, No Redness Cardiovascular : No Chest Pain, No SOB, NoEdema Respiratory : No Cough, No Sputum, No Wheezing Gastrointestinal : Positive Nausea, Positive Vomiting, positive Diarrhea, positive abdominal Pain, No Hematochezia, No Melena Genitourinary : No Dysuria, No Urinary Frequency, No Hematuria, No Urgency Musculoskeletal : No joint pain, No Myalgias, No Joint Swelling Skin : No Skin Lesions, No rash Neuro : No Weakness, No Numbness, No Dizziness, No Headache Psych : No Anxiety/Panic, No Depression Heme/Lymph: No Bruising, No Lymphadenopathy Endocrine : No Polyuria, No Polydipsia All other systems reviewed and are negative. Physical Exam Vital Signs: Vital Signs: Last Vital Signs Temp 98.7 F 02/09/21 12:02 Pulse 82 02/09/21 14:00 Resp 16 02/09/21 14:00 BP 102/76 02/09/21 14:00 Pulse Ox 96 02/09/21 14:00 Body Mass Index 25.8 Appearance: Alert. Oriented X3. No acute distress. unkempt, disheveled Eyes: Pupils equal, round and reactive to light. ENT: Pharynx mild dry MM Neck: Normal inspection. Neck supple. CVS: Normal heart rate and rhythm. Pulses normal. Respiratory: No respiratory distress. Breath sounds normal. Abdomen: Soft and moderate ttp in RLQ no rebound, mild guarding Skin: Skin warm and dry. Normal skin color. Normal skin turgor. Extremities: No lower extremity edema. No calf ttp Neuro: Oriented X 3. No motor deficit. No sensory deficit. Course Course Course Narrative: call to Radiology for results of CT scan - +ileus, will admit for further management repleting Mag and K given ETOH history will start on phenobarb protocol MDM - Abdominal Pain MDM Narrative Medical decision making narrative: 60 yo male with hx of COPD, IDDM, pancreatitis due to ETOH comes in today with c/o RLQ pain and n/v/d no recent abx use, at this time will need labs, CT scan for appendicitis, IVF, IV morphine/zofran for symptoms, dispo per results and findings. Differential Diagnosis Differential diagnosis: Likely abdominal pain, acute appendicitis, calculus of kidney and pancreatitis Lab Data Result diagrams: 02/09/21 12:15 02/09/21 12:15 Labs: Lab Results 02/09/21 02/09/21 02/09/21 Range/Units 11:56 12:15 12:15 WBC 5.9 (4.8-10.8) X10*3/uL RBC 4.52 L D (4.60-5.80) X10*6/uL Hgb 13.7 L D (14.0-18.0) g/dl Hct 37.8 L D (42-52) % MCV 83.6 (80-98) fL MCH 30.3 (27.0-33.0) pg MCHC 36.2 H (31.0-36.0) g/dl RDW 15.9 (11.0-16.0) % Plt Count 56 L D (160-400) X10*3/uL MPV 9.5 (9.4-12.4) fL Immature Gran % (Auto) 0.3 (0.0-0.4) % Neut % (Auto) 53.6 (45-73) % Lymph % (Auto) 35.5 (20-40) % [place] % (Auto) 8.7 (2-11) % Eos % (Auto) 1.4 (0-4) % Baso % (Auto) 0.5 (0-2) % Lymph # (Auto) 2.1 (1.2-4.9) X10*3/uL [place] # (Auto) 0.5 (0.1-1.2) X10*3/uL Eos # (Auto) 0.1 (0.0-0.4) X10*3/uL Baso # (Auto) 0.0 (0.0-0.2) X10*3/uL Abs Immat Gran (auto) 0.02 (0.00-0.03) X10*3/uL Absolute Neuts (auto) 3.2 (2.0-8.3) X10*3/uL Absolute Nucleated RBC 0.000 (0.0-0.012) X10*3/uL Nucleated RBC % (auto) 0.0 (0.0-0.2) /100WBC Smear Tech's Comments VERIFIED Hold Blue Top Sodium 131 L (135-145) mmol/L Potassium 3.2 L D (3.3-5.1) mmol/L Chloride 90 L (96-108) mmol/L Carbon Dioxide 26 (22-29) mmol/L Anion Gap 18 (12-20) BUN 8 L (9-16) mg/dL Creatinine 1.15 (0.5-1.4) mg/dL Estim Creat Clear Calc 62.4 Estimated GFR > 60 POC Glucose 341 H (60-115) mg/dL Random Glucose 359 H* (60-115) mg/dL Lactic Acid (0.5-2.0) mmol/L Calcium 8.9 D (8.4-10.2) mg/dL Magnesium 1.2 L* (1.6-2.6) mg/dL Total Bilirubin 0.9 (0.0-1.0) mg/dL Direct Bilirubin 0.4 (0.0-0.5) mg/dL AST 23 D (5-37) U/L ALT 10 (0-40) U/L Alkaline Phosphatase 93 D (39-117) U/L Total Protein 7.2 D (6.5-8.0) g/dL Albumin 3.9 D (3.5-5.0) g/dL Lipase 73 (8-78) U/L Urine Color Urine Appearance Urine pH (5.0-8.0) Ur Specific [place] (1.005-1.025) Urine Protein (NEG-TRACE) MG/DL Urine Glucose (UA) (NEG) MG/DL Urine Ketones (NEG) MG/DL Urine Blood (NEG) Urine Nitrite (NEG) Ur Leukocyte Esterase (NEG) Urine RBC (0) /HPF Urine WBC (0-4) /HPF Ur Squamous Epith Cells /LPF Urine Bacteria /LPF Urine Opiates Screen (Not Detect) Ur Barbiturates Screen (Not Detect) Ur Phencyclidine Scrn (Not Detect) Ur Amphetamines Screen (Not Detect) U Benzodiazepines Scrn (Not Detect) Urine Cocaine Screen (Not Detect) U Marijuana (THC) Screen (Not Detect) Ethyl Alcohol mg/dL 02/09/21 02/09/21 02/09/21 Range/Units 12:15 12:15 12:39 WBC (4.8-10.8) X10*3/uL RBC (4.60-5.80) X10*6/uL Hgb (14.0-18.0) g/dl Hct (42-52) % MCV (80-98) fL MCH (27.0-33.0) pg MCHC (31.0-36.0) g/dl RDW (11.0-16.0) % Plt Count (160-400) X10*3/uL MPV (9.4-12.4) fL Immature Gran % (Auto) (0.0-0.4) % Neut % (Auto) (45-73) % Lymph % (Auto) (20-40) % [place] % (Auto) (2-11) % Eos % (Auto) (0-4) % Baso % (Auto) (0-2) % Lymph # (Auto) (1.2-4.9) X10*3/uL [place] # (Auto) (0.1-1.2) X10*3/uL Eos # (Auto) (0.0-0.4) X10*3/uL Baso # (Auto) (0.0-0.2) X10*3/uL Abs Immat Gran (auto) (0.00-0.03) X10*3/uL Absolute Neuts (auto) (2.0-8.3) X10*3/uL Absolute Nucleated RBC (0.0-0.012) X10*3/uL Nucleated RBC % (auto) (0.0-0.2) /100WBC Smear Tech's Comments Hold Blue Top SEE NOTE Sodium (135-145) mmol/L Potassium (3.3-5.1) mmol/L Chloride (96-108) mmol/L Carbon Dioxide (22-29) mmol/L Anion Gap (12-20) BUN (9-16) mg/dL Creatinine (0.5-1.4) mg/dL Estim Creat Clear Calc Estimated GFR POC Glucose (60-115) mg/dL Random Glucose (60-115) mg/dL Lactic Acid 3.0 H* (0.5-2.0) mmol/L Calcium (8.4-10.2) mg/dL Magnesium (1.6-2.6) mg/dL Total Bilirubin (0.0-1.0) mg/dL Direct Bilirubin (0.0-0.5) mg/dL AST (5-37) U/L ALT (0-40) U/L Alkaline Phosphatase (39-117) U/L Total Protein (6.5-8.0) g/dL Albumin (3.5-5.0) g/dL Lipase (8-78) U/L Urine Color Urine Appearance Urine pH (5.0-8.0) Ur Specific [place] (1.005-1.025) Urine Protein (NEG-TRACE) MG/DL Urine Glucose (UA) (NEG) MG/DL Urine Ketones (NEG) MG/DL Urine Blood (NEG) Urine Nitrite (NEG) Ur Leukocyte Esterase (NEG) Urine RBC (0) /HPF Urine WBC (0-4) /HPF Ur Squamous Epith Cells /LPF Urine Bacteria /LPF Urine Opiates Screen (Not Detect) Ur Barbiturates Screen (Not Detect) Ur Phencyclidine Scrn (Not Detect) Ur Amphetamines Screen (Not Detect) U Benzodiazepines Scrn (Not Detect) Urine Cocaine Screen (Not Detect) U Marijuana (THC) Screen (Not Detect) Ethyl Alcohol < 10 mg/dL 02/09/21 02/09/21 Range/Units 14:20 14:20 WBC (4.8-10.8) X10*3/uL RBC (4.60-5.80) X10*6/uL Hgb (14.0-18.0) g/dl Hct (42-52) % MCV (80-98) fL MCH (27.0-33.0) pg MCHC (31.0-36.0) g/dl RDW (11.0-16.0) % Plt Count (160-400) X10*3/uL MPV (9.4-12.4) fL Immature Gran % (Auto) (0.0-0.4) % Neut % (Auto) (45-73) % Lymph % (Auto) (20-40) % [place] % (Auto) (2-11) % Eos % (Auto) (0-4) % Baso % (Auto) (0-2) % Lymph # (Auto) (1.2-4.9) X10*3/uL [place] # (Auto) (0.1-1.2) X10*3/uL Eos # (Auto) (0.0-0.4) X10*3/uL Baso # (Auto) (0.0-0.2) X10*3/uL Abs Immat Gran (auto) (0.00-0.03) X10*3/uL Absolute Neuts (auto) (2.0-8.3) X10*3/uL Absolute Nucleated RBC (0.0-0.012) X10*3/uL Nucleated RBC % (auto) (0.0-0.2) /100WBC Smear Tech's Comments Hold Blue Top Sodium (135-145) mmol/L Potassium (3.3-5.1) mmol/L Chloride (96-108) mmol/L Carbon Dioxide (22-29) mmol/L Anion Gap (12-20) BUN (9-16) mg/dL Creatinine (0.5-1.4) mg/dL Estim Creat Clear Calc Estimated GFR POC Glucose (60-115) mg/dL Random Glucose (60-115) mg/dL Lactic Acid (0.5-2.0) mmol/L Calcium (8.4-10.2) mg/dL Magnesium (1.6-2.6) mg/dL Total Bilirubin (0.0-1.0) mg/dL Direct Bilirubin (0.0-0.5) mg/dL AST (5-37) U/L ALT (0-40) U/L Alkaline Phosphatase (39-117) U/L Total Protein (6.5-8.0) g/dL Albumin (3.5-5.0) g/dL Lipase (8-78) U/L Urine Color YELLOW Urine Appearance CLEAR Urine pH 6.0 (5.0-8.0) Ur Specific [place] <= 1.005 (1.005-1.025) Urine Protein NEG (NEG-TRACE) MG/DL Urine Glucose (UA) 250 H (NEG) MG/DL Urine Ketones NEG (NEG) MG/DL Urine Blood TRACE (NEG) Urine Nitrite NEG (NEG) Ur Leukocyte Esterase NEG (NEG) Urine RBC 0-2 (0) /HPF Urine WBC 0 (0-4) /HPF Ur Squamous Epith Cells TRACE /LPF Urine Bacteria NONE /LPF Urine Opiates Screen POSITIVE H (Not Detect) Ur Barbiturates Screen Not Detected (Not Detect) Ur Phencyclidine Scrn Not Detected (Not Detect) Ur Amphetamines Screen Not Detected (Not Detect) U Benzodiazepines Scrn Not Detected (Not Detect) Urine Cocaine Screen Not Detected (Not Detect) U Marijuana (THC) Screen Not Detected (Not Detect) Ethyl Alcohol mg/dL Critical Care Time Critical Care Time Critical Care Time: Yes Total Critical Care Time: 60 Attestation: IVF, repletion of magnesium and potassium, start on phenobarb protocol, review of records I attest to this time spent taking care of the patient Discharge Plan Discharge Clinical Impression: Hypomagnesemia, Acute hypokalemia, Alcohol abuse, Ileus Vomiting Qualifiers: Vomiting type: unspecified Vomiting Intractability: intractable Nausea presence: with nausea Qualified Code(s): R11.2 - Nausea with vomiting, unspecified Patient Disposition: Admitted As Inpatient [facility] Past Medical History Attestation statement: The following information was validated with the patient. Medical History Attention deficit disorder Degenerative disc disease, cervical Depression Diabetes mellitus Dyslipidemia History of substance abuse Hypotestosteronism Osteoarthritis of right hand Pancreatitis Surgical History History of surgery Family History Family History Father Cancer Mother Cancer Diabetes Social History Social History (Updated 02/09/21 @ 12:01 by Rani Forrest DO) Household Members: None Housing: Unknown / Unable to assess Do you presently have visiting nurse or other home services: No Unable to assess alcohol history related to: Refusing to respond Alcohol intake: current Alcohol intake frequency: 3 or more drinks per day Alcohol type: wine and hard liquor Patient Tobacco Use Status: Former Tobacco user Use of substances other than those prescribed or required for medical reasons: No Advance Directives: No Advance Directives Information Provided: No service: No Current occupational status: unemployed Current occupation: Right Handed
[2021-02-09 12:02] VITALS: BP 115/75; BP 118/79; PULSE 100; PULSE 97; RESP 18; TEMP 37.1; O2SAT 93; O2SAT 96; BMI 25.8
[2021-02-09 12:23] LABS: Basophils Percent Auto 0.5 % (0-2); Hemoglobin 13.7 g/dl (14.0-18.0); MANUAL DIFF FLAG SCAN; PLT CLUMP 1; Red Cell Distribution Width 15.9 % (11.0-16.0); SCAN SMEAR FLAG 1
[2021-02-09] MEDS: 0.9 % Sodium Chloride 1,000 ML 999 ML IVCONT ×2 (12:23→13:53)
[2021-02-09] MEDS: Morphine Sulfate 4 MG/ML CARTRIDGE IVPUSH (12:24)
[2021-02-09] MEDS: Magnesium Sulfate/H2O 2 GM/50 ML PIGGYBACK IV ×2 (12:24→13:58)
[2021-02-09] MEDS: ondansetron HCL 4 MG/2 ML VIAL IVPUSH (12:24)
[2021-02-09 12:25] LABS: Eosinophils Absolute Auto 0.1 X10*3/uL (0.0-0.4); Eosinophils Percent Auto 1.4 % (0-4); Hematocrit 37.8 % (42-52); Imm Gran Abs Auto 0.02 X10*3/uL (0.00-0.03); Imm Gran Pct Auto 0.3 % (0.0-0.4); Lymphocytes Absolute Auto 2.1 X10*3/uL (1.2-4.9); Lymphocytes Percent Auto 35.5 % (20-40); Mean Corpuscular HGB Conc 36.2 g/dl (31.0-36.0); Mean Corpuscular Hemoglobin 30.3 pg (27.0-33.0); Mean Corpuscular Volume 83.6 fL (80-98); Mean Platelet Volume 9.5 fL (9.4-12.4); Monocytes Absolute Auto 0.5 X10*3/uL (0.1-1.2); Monocytes Percent Auto 8.7 % (2-11); Neutrophils Absolute Auto 3.2 X10*3/uL (2.0-8.3); Neutrophils Percent Auto 53.6 % (45-73); Red Blood Count 4.52 X10*6/uL (4.60-5.80); White Blood Count 5.9 X10*3/uL (4.8-10.8)
[2021-02-09 12:26] VITALS: BP 108/74; PULSE 104; RESP 16; O2SAT 95
[2021-02-09 12:28] LABS: Platelet Count 56 X10*3/uL (160-400)
[2021-02-09 12:41] LABS: SLIDE REVIEW VERIFIED
[2021-02-09 12:48] LABS: Ethanol < 10 mg/dL
[2021-02-09 12:55] LABS: Alanine Aminotransferase 10 U/L (0-40); Albumin Level 3.9 g/dL (3.5-5.0); Alkaline Phosphatase 93 U/L (39-117); Anion Gap 18 (12-20); Aspartate Amino Transferase 23 U/L (5-37); Bilirubin Direct 0.4 mg/dL (0.0-0.5); Bilirubin Total 0.9 mg/dL (0.0-1.0); Blood Urea Nitrogen 8 mg/dL (9-16); Calcium 8.9 mg/dL (8.4-10.2); Carbon Dioxide 26 mmol/L (22-29); Chloride 90 mmol/L (96-108); Creatinine Clr Calc Pharmacy 62.4; Estimated Glomerular Filt Rate > 60; Lipase 73 U/L (8-78); Potassium 3.2 mmol/L (3.3-5.1); Sodium 131 mmol/L (135-145); Total Protein 7.2 g/dL (6.5-8.0)
[2021-02-09 12:57] LABS: Glucose Random 359 mg/dL (60-115); Magnesium 1.2 mg/dL (1.6-2.6)
[2021-02-09] MEDS: Potassium Chloride ER 20 MEQ TAB.ER.PRT 40 MEQ PO (13:52)
[2021-02-09] MEDS: Potassium Chloride/H20 10 MEQ/100 ML PIGGYBACK 100 MEQ IV ×2 (13:58→16:19)
[2021-02-09 14:00] VITALS: BP 102/76; PULSE 82; RESP 16; O2SAT 96
[2021-02-09 14:20] LABS: Reflex Lactate? Lactic Acid Added
[2021-02-09 14:27] LABS: Glucose Urine UA 250 MG/DL (NEG); Leukocyte Esterase Urine NEG (NEG); Nitrite Urine NEG (NEG); Specific Gravity - Urine <= 1.005 (1.005-1.025); Urine Blood TRACE (NEG); Urine Ketones NEG (NEG); Urine Protein NEG (NEG-TRACE)
[2021-02-09 14:28] LABS: Appearance Urine CLEAR; Color Urine YELLOW
[2021-02-09 14:37] LABS: RBC Urine 0-2 /HPF (0); Squamous Epithelial Cell Urine TRACE /LPF; WBC Urine 0 /HPF (0-4)
[2021-02-09 14:49] LABS: Amphetamine Screen Urine Not Detected (Not Detect); Barbiturates, Urine Not Detected (Not Detect); Benzodiazepines Screen Urine Not Detected (Not Detect); Cannabinoid Screen Urine Not Detected (Not Detect); Cocaine Screen Urine Not Detected (Not Detect); Opiate Screen Urine POSITIVE (Not Detect); Phencyclidine Screen Urine Not Detected (Not Detect)
[2021-02-09 15:40] LABS: ~Lactic Acid-LAB USE ONLY 1.3 mmol/L (0.5-2.0)
--- NOTE | 2021-02-09 15:53 | P.HPHOSP_ITS ---
History of Present Illness Date of Service: 02/09/21 Chief Complaint: Abd pain, nausea, vomiting A 60 years old male with PMH of diabetes type 2, alcohol abuse among others who presented to the hospital complaining of abdominal pain, and VD for the last 3 days. The patient reports that event he started with nausea and vomiting 2 days ago associated with watery diarrhea multiple occasions. Denies any fever, chi lls, urinary symptoms, shortness of breath or chest pain. Starting this morning he noticed abdominal pain mainly central periumbilical radiating to his right low id associated with increased feeling of nausea. Stabbing in nature. 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 In the emergency a CT scan of the abdomen was consistent with ileus. He was found to have hypomagnesemia and hypokalemia as well. Admitted for further evaluation and treatment. Review of Systems 2 Review of Systems: No fever, chills but reports weakness No chest pain, palpitation No shortness of breath or coughing abdominal pain with reported nausea and vomiting No urinary symptoms No any rash or wounds PMFSH Medical History Attention deficit disorder Degenerative disc disease, cervical Depression Diabetes mellitus Dyslipidemia History of substance abuse Hypotestosteronism Osteoarthritis of right hand Pancreatitis Family History Father Cancer Mother Cancer Diabetes Surgical History History of surgery Social History Household Members: None Housing: Unknown / Unable to assess Do you presently have visiting nurse or other home services: No Unable to assess alcohol history related to: Refusing to respond Alcohol intake: current Alcohol intake frequency: 3 or more drinks per day Alcohol type: wine and hard liquor Patient Tobacco Use Status: Former Tobacco user Use of substances other than those prescribed or required for medical reasons: No Advance Directives: No Advance Directives Information Provided: No service: No Current occupational status: unemployed Current occupation: Right Handed Meds Allergies Allergy/AdvReac Type Severity Reaction Status Date / Time acamprosate Allergy Unknown redness Verified 06/11/20 08:50 and itching Docusate Sodium Allergy Unknown Migraines Verified 07/16/20 14:05 Active Medications: Current Medications Generic Name Dose Route Start Last Admin Trade Name [place] PRN Reason Stop Dose Admin Medication 1 each 02/10/21 09:00 No Benzodiazepines MISCELLANE DAILY [facility] Phenobarbital 45 mg 02/10/21 09:00 Phenobarbital 15 Mg Tablet PO 02/11/21 21:01 BID [facility] Phenobarbital 15 mg 02/12/21 09:00 Phenobarbital 15 Mg Tablet PO 02/13/21 21:01 BID [facility] Phenobarbital 15 mg 02/14/21 09:00 Phenobarbital 15 Mg Tablet PO 02/15/21 09:01 DAILY [facility] Phenobarbital Sodium 204 mg 02/09/21 16:00 Phenobarbital Sodium 130 Mg/Ml Vial IM 02/09/21 16:01 ONCE ONE Phenobarbital Sodium 153 mg 02/09/21 19:00 Phenobarbital Sodium 130 Mg/Ml Vial IM 02/09/21 22:01 Q3H [facility] Home Medications Medication Instructions Recorded Confirmed Last Taken Type nabumetone 750 mg PO BID 09/25/20 09/25/20 Unknown History Physical Exam Vital Signs and Narrative: Vital Signs: Last Vital Signs Temp 98.7 F 02/09/21 12:02 Pulse 82 02/09/21 14:00 Resp 16 02/09/21 14:00 BP 102/76 02/09/21 14:00 Pulse Ox 96 02/09/21 14:00 Body Mass Index 25.8 Const: Other: Constitutional : Alert, oriented, in mild distress Neck : Normal inspection, Supple Cardiovascular : RRR, S1 S2, no lower extremity edema Respiratory : Good bilateral air entry, no crackles, wheezes or rhonchi Gastrointestinal: soft, lax, Normal bowel sounds, generalized tenderness with no surgical Skin : Warm/Dry, No rash Neurological : Alert & oriented x3, No focal deficit Results Labs CBC and Chem 7: 02/09/21 12:15 02/09/21 12:15 Labs: Laboratory Results - last 24 hr 02/09/21 02/09/21 02/09/21 11:56 12:15 12:15 MCV 83.6 MCH 30.3 MCHC 36.2 H RDW 15.9 Plt Count 56 L D MPV 9.5 Immature Gran % (Auto) 0.3 Neut % (Auto) 53.6 Lymph % (Auto) 35.5 [place] % (Auto) 8.7 Eos % (Auto) 1.4 Baso % (Auto) 0.5 Lymph # (Auto) 2.1 [place] # (Auto) 0.5 Eos # (Auto) 0.1 Baso # (Auto) 0.0 Abs Immat Gran (auto) 0.02 Absolute Neuts (auto) 3.2 Absolute Nucleated RBC 0.000 Nucleated RBC % (auto) 0.0 Smear Tech's Comments VERIFIED Hold Blue Top Anion Gap 18 Estim Creat Clear Calc 62.4 Estimated GFR > 60 POC Glucose 341 H Random Glucose 359 H* Lactic Acid Lactic Acid Fup @ 2Hr Calcium 8.9 D Magnesium 1.2 L* Total Bilirubin 0.9 Direct Bilirubin 0.4 AST 23 D ALT 10 Alkaline Phosphatase 93 D Total Protein 7.2 D Albumin 3.9 D Lipase 73 Urine Color Urine Appearance Urine pH Ur Specific [place] Urine Protein Urine Glucose (UA) Urine Ketones Urine Blood Urine Nitrite Ur Leukocyte Esterase Urine RBC Urine WBC Ur Squamous Epith Cells Urine Bacteria Urine Opiates Screen Ur Barbiturates Screen Ur Phencyclidine Scrn Ur Amphetamines Screen U Benzodiazepines Scrn Urine Cocaine Screen U Marijuana (THC) Screen Ethyl Alcohol 02/09/21 02/09/21 02/09/21 12:15 12:15 12:39 MCV MCH MCHC RDW Plt Count MPV Immature Gran % (Auto) Neut % (Auto) Lymph % (Auto) [place] % (Auto) Eos % (Auto) Baso % (Auto) Lymph # (Auto) [place] # (Auto) Eos # (Auto) Baso # (Auto) Abs Immat Gran (auto) Absolute Neuts (auto) Absolute Nucleated RBC Nucleated RBC % (auto) Smear Tech's Comments Hold Blue Top SEE NOTE Anion Gap Estim Creat Clear Calc Estimated GFR POC Glucose Random Glucose Lactic Acid 3.0 H* Lactic Acid Fup @ 2Hr Calcium Magnesium Total Bilirubin Direct Bilirubin AST ALT Alkaline Phosphatase Total Protein Albumin Lipase Urine Color Urine Appearance Urine pH Ur Specific [place] Urine Protein Urine Glucose (UA) Urine Ketones Urine Blood Urine Nitrite Ur Leukocyte Esterase Urine RBC Urine WBC Ur Squamous Epith Cells Urine Bacteria Urine Opiates Screen Ur Barbiturates Screen Ur Phencyclidine Scrn Ur Amphetamines Screen U Benzodiazepines Scrn Urine Cocaine Screen U Marijuana (THC) Screen Ethyl Alcohol < 10 02/09/21 02/09/21 02/09/21 14:20 14:20 14:57 MCV MCH MCHC RDW Plt Count MPV Immature Gran % (Auto) Neut % (Auto) Lymph % (Auto) [place] % (Auto) Eos % (Auto) Baso % (Auto) Lymph # (Auto) [place] # (Auto) Eos # (Auto) Baso # (Auto) Abs Immat Gran (auto) Absolute Neuts (auto) Absolute Nucleated RBC Nucleated RBC % (auto) Smear Tech's Comments Hold Blue Top Anion Gap Estim Creat Clear Calc Estimated GFR POC Glucose Random Glucose Lactic Acid Lactic Acid Fup @ 2Hr 1.3 Calcium Magnesium Total Bilirubin Direct Bilirubin AST ALT Alkaline Phosphatase Total Protein Albumin Lipase Urine Color YELLOW Urine Appearance CLEAR Urine pH 6.0 Ur Specific [place] <= 1.005 Urine Protein NEG Urine Glucose (UA) 250 H Urine Ketones NEG Urine Blood TRACE Urine Nitrite NEG Ur Leukocyte Esterase NEG Urine RBC 0-2 Urine WBC 0 Ur Squamous Epith Cells TRACE Urine Bacteria NONE Urine Opiates Screen POSITIVE H Ur Barbiturates Screen Not Detected Ur Phencyclidine Scrn Not Detected Ur Amphetamines Screen Not Detected U Benzodiazepines Scrn Not Detected Urine Cocaine Screen Not Detected U Marijuana (THC) Screen Not Detected Ethyl Alcohol Imaging Radiologist's Impressions: Impressions Abdomen/Pelvis CT 02/09/21 12:00 IMPRESSION: Fluid-filled distended small and proximal large bowel suggestive of an ileus. Normal-appearing appendix. Calcifications in the pancreas suggestive of chronic pancreatitis. New slightly complex cyst in the tail the pancreas measuring 3.8 x 4.8 cm and stranding of the surrounding fat and thickening of the left anterior pararenal fascia. This probably represents a pseudocyst and changes from pancreatitis. Assessment and Plan (1) Vomiting: Qualifiers: Nausea presence: with nausea Vomiting Intractability: intractable Vomiting type: unspecified Qualified Code(s): R11.2 - Nausea with vomiting, unspecified Status: Acute (2) Hypomagnesemia: Status: Acute (3) Acute hypokalemia: Status: Acute (4) Alcohol abuse: Status: Acute (5) Thrombocytopenia: Status: Acute (6) Ileus: Status: Acute (7) Pancreatic cyst: Status: Acute A 60 years old male with PMH of diabetes type 2, alcohol abuse among others who presented to the hospital complaining of abdominal pain, and VD for the last 3 days. Ileus As reported on CT scan Bowel rest, advance to clear liquid with tolerated IV fluids Correct electrolyte imbalance Hypokalemia Hypomagnesemia Hyponatremia Start IV fluid to give potassium replacement Received magnesium replacement Monitor electrolytes Alcohol abuse in withdrawal Advised to quit alcohol Start phenobarbital treatment Pancreatic cyst See with CT scan The presenting likely a pseudocyst next [place] to get GI evaluation Thrombocytopenia Chronic related to chronic alcoholism DVT PPX Xarelto Quality Stroke Does the patient have a stroke diagnosis?: No VTE Prior VTE?: No VTE Risk Level:: Medical - moderate - high VTE Device Contraindication: Treatment Not Indicated VTE Drug Contraindication: N/A - Med Ordered
[2021-02-09] MEDS: PHENobarbitaL sodium 130 MG/ML VIAL 204 MG IM (16:17)
[2021-02-09 16:43] LABS: COVID-19 Test Negative (Negative)
[2021-02-09 18:38] VITALS: BP 102/57; PULSE 88; RESP 13; O2SAT 96
[2021-02-09] MEDS: Nicotine 7 MG PATCH.TD24 TRANSDERMA (19:03)
[2021-02-09] MEDS: PHENobarbitaL sodium 130 MG/ML VIAL 153 MG IM (19:03)
--- NOTE | 2021-02-09 19:15 | PC.NURSE ---
PT WALKING AROUND THE ED, INSTRUCTED THAT IF HE NEEDS TO WALK, TO PLEASE USE THE CALLBELL AND ASK STAFF TO WALK WITH HIM. WILL CONTINUE TO ASSESS AND MONITOR.
[2021-02-09 20:48] LABS: Glucose, Whole Blood 231 mg/dL (60-115)
[2021-02-09 22:13] VITALS: BP 108/60; PULSE 86; RESP 16; TEMP 36.6; O2SAT 94
[2021-02-09 22:19] LABS: Glucose, Whole Blood 209 mg/dL (60-115)
[2021-02-09] MEDS: Insulin Lispro 100 UNIT/ML 3 ML VIAL SUBCUT (22:23)
[2021-02-09] MEDS: 0.9 % Sodium Chloride Flush 3 ML SYRINGE IVFLUSH ×2 (22:23→22:28)
[2021-02-09] MEDS: 0.9 % Sodium Chloride 1,000 ML 100 ML IVCONT (22:23)
[2021-02-10] VITALS (7 sets, daily range): BP systolic 98–116; BP diastolic 56–74; PULSE 58–70; RESP 14–20; TEMP 36.4–36.8; O2SAT 94–98
[2021-02-10 06:14] LABS: Hematocrit 33.3 % (42-52); Hemoglobin 11.5 g/dl (14.0-18.0); Mean Corpuscular HGB Conc 34.5 g/dl (31.0-36.0); Mean Corpuscular Hemoglobin 30.4 pg (27.0-33.0); Mean Corpuscular Volume 88.1 fL (80-98); Red Blood Count 3.78 X10*6/uL (4.60-5.80); Red Cell Distribution Width 16.1 % (11.0-16.0); White Blood Count 4.2 X10*3/uL (4.8-10.8)
[2021-02-10 06:17] LABS: Platelet Count 35 X10*3/uL (160-400)
[2021-02-10 06:43] LABS: Anion Gap 10 (12-20); Blood Urea Nitrogen 8 mg/dL (9-16); Calcium 8.1 mg/dL (8.4-10.2); Carbon Dioxide 28 mmol/L (22-29); Chloride 101 mmol/L (96-108); Creatinine Clr Calc Pharmacy 84.4; Estimated Glomerular Filt Rate > 60; Glucose Random 213 mg/dL (60-115); Magnesium 1.8 mg/dL (1.6-2.6); Potassium 4.6 mmol/L (3.3-5.1); Sodium 134 mmol/L (135-145)
[2021-02-10 07:24] LABS: Glucose, Whole Blood 169 mg/dL (60-115)
[2021-02-10] MEDS: Insulin Lispro 100 UNIT/ML 3 ML VIAL SUBCUT ×2 (08:06→12:07)
[2021-02-10] MEDS: PHENobarbitaL 15 MG TABLET 45 MG PO ×2 (08:07→20:17)
[2021-02-10] MEDS: Nicotine 7 MG PATCH.TD24 TRANSDERMA (08:07)
--- NOTE | 2021-02-10 10:10 | MHC.CM.PN ---
CM met with Patient at bedside. Patient lives alone in an apartment, uses a cane to assist with mobility, and his goal for dc is to return home with a new referral to [facility]. CM has initiated and will follow for dc planning. Patient was recently at [facility] and then a [facility] and he wishes NOT to return. Brother/Lyndon is HCP and PCP is Dr. Jose White.
[2021-02-10 11:39] LABS: Glucose, Whole Blood 198 mg/dL (60-115)
[2021-02-10] MEDS: 0.9 % Sodium Chloride 1,000 ML 100 ML IVCONT ×2 (12:07→20:18)
[2021-02-10] MEDS: Ketorolac Tromethamine 15 MG/ML VIAL IVPUSH ×2 (14:20→23:41)
--- NOTE | 2021-02-10 14:39 | PM.EVENT ---
Event Note Date of Service: 02/10/21 Event Note: GI consult dictated N/V/D and abdominal pain improving with symptomatic treatment advised pt to stop using alcohol empiric omeprazole to cover any component of gastritis.
--- NOTE | 2021-02-10 15:06 | P.PNIM_ITS ---
Subjective Subjective Date of Service: 02/10/21 Interval History: The patient was seen and evaluated this morning Laying in bed, feels better today and able to tolerate small amount of clear liquids Still complaining abdominal pain occasions and feeling of nausea Denies any fever, chills or shortness of breath No reported other overnight events. Review of Systems No fever, chills but reports weakness No chest pain, palpitation No shortness of breath or coughing abdominal pain with reported nausea and vomiting No urinary symptoms No any rash or wounds Physical Exam Vital Signs: Vital Signs: Last Vital Signs Temp 98.3 F 02/10/21 12:00 Pulse 66 02/10/21 12:00 Resp 14 02/10/21 12:00 BP 114/63 02/10/21 12:00 Pulse Ox 94 02/10/21 12:00 Body Mass Index 25.8 Const: Other: Constitutional : Alert, oriented, in mild distress Neck : Normal inspection, Supple Cardiovascular : RRR, S1 S2, no lower extremity edema Respiratory : Good bilateral air entry, no crackles, wheezes or rhonchi Gastrointestinal: soft, lax, Normal bowel sounds, generalized tenderness with no surgical signs Skin : Warm/Dry, No rash Neurological : Alert & oriented x3, No focal deficit Objective Data Current Medications Generic Name Dose Route Start Last Admin Trade Name Freq PRN Reason Stop Dose Admin Acetaminophen 650 mg 02/09/21 21:39 Acetaminophen 325 Mg Tablet PO Q6H PRN Pain, Mild (Pain Scale 1-3) Sodium Chloride 1,000 mls @ 100 mls/hr 02/09/21 21:39 02/10/21 12:07 Ns IVCONT 100 mls/hr .Q10H JOSE Administration Insulin Human Lispro 0 unit 02/09/21 21:39 02/10/21 12:07 Insulin Lispro 100 Unit/Ml 3 Ml Vial SUBCUT 2 unit QIDACHS JOSE Administration Protocol Ketorolac Tromethamine 15 mg 02/10/21 14:07 02/10/21 14:20 Ketorolac Tromethamine 15 Mg/Ml Vial IVPUSH 15 mg Q6H PRN Administration Pain, Severe (Pain Scale 7-10) Medication 1 each 02/10/21 09:00 No Benzodiazepines MISCELLANE DAILY JOSE Nicotine 7 mg 02/09/21 19:00 02/10/21 08:07 Nicotine 7 Mg Patch.Td24 TRANSDERMA 7 mg DAILY [facility] Administration Omeprazole 20 mg 02/10/21 14:45 Omeprazole 20 Mg Capsule.Dr PO DAILY@0630 [facility] Ondansetron HCl 4 mg 02/09/21 21:39 Ondansetron Hcl 4 Mg/2 Ml Vial IVPUSH Q8H PRN Nausea and Vomiting Phenobarbital 45 mg 02/10/21 09:00 02/10/21 08:07 Phenobarbital 15 Mg Tablet PO 02/11/21 21:01 45 mg BID [facility] Administration Phenobarbital 15 mg 02/12/21 09:00 Phenobarbital 15 Mg Tablet PO 02/13/21 21:01 BID [facility] Phenobarbital 15 mg 02/14/21 09:00 Phenobarbital 15 Mg Tablet PO 02/15/21 09:01 DAILY [facility] Rivaroxaban 10 mg 02/10/21 09:00 02/10/21 08:16 Rivaroxaban 10 Mg Tablet PO Not Given DAILY [facility] Sodium Chloride 3 ml 02/09/21 21:39 02/10/21 08:07 0.9 % Sodium Chloride Flush 3 Ml Syringe IVFLUSH Not Given QSHIFT [facility] Labs CBC & Chem 7: 02/10/21 05:52 02/10/21 05:52 Labs: Laboratory Results - last 24 hr 02/09/21 02/09/21 02/09/21 14:57 16:23 20:44 WBC RBC Hgb Hct MCV MCH MCHC RDW Plt Count MPV Absolute Nucleated RBC Nucleated RBC % (auto) Sodium Potassium Chloride Carbon Dioxide Anion Gap BUN Creatinine Estim Creat Clear Calc Estimated GFR POC Glucose 231 H Random Glucose Lactic Acid Fup @ 2Hr 1.3 Calcium Magnesium COVID-19 ([facility]) Negative COVID-19 Clin Com See Note 02/09/21 02/10/21 02/10/21 22:16 05:52 05:52 WBC 4.2 L RBC 3.78 L Hgb 11.5 L Hct 33.3 L MCV 88.1 MCH 30.4 MCHC 34.5 RDW 16.1 H Plt Count 35 L D MPV 10.0 Absolute Nucleated RBC 0.000 Nucleated RBC % (auto) 0.0 Sodium 134 L Potassium 4.6 D Chloride 101 Carbon Dioxide 28 Anion Gap 10 L BUN 8 L Creatinine 0.85 Estim Creat Clear Calc 84.4 Estimated GFR > 60 POC Glucose 209 H Random Glucose 213 H D Lactic Acid Fup @ 2Hr Calcium 8.1 L D Magnesium 1.8 COVID-19 ([facility]) COVID-19 [employer] 02/10/21 02/10/21 07:21 11:30 WBC RBC Hgb Hct MCV MCH MCHC RDW Plt Count MPV Absolute Nucleated RBC Nucleated RBC % (auto) Sodium Potassium Chloride Carbon Dioxide Anion Gap BUN Creatinine Estim Creat Clear Calc Estimated GFR POC Glucose 169 H 198 H Random Glucose Lactic Acid Fup @ 2Hr Calcium Magnesium COVID-19 ([facility]) COVID-19 [employer] Com Microbiology Microbiology Results: Microbiology 02/09/21 12:39 Blood Culture - Preliminary Blood - Venous No growth after 24 hours. 02/09/21 12:15 Blood Culture - Preliminary Blood - Venous No growth after 24 hours. Quality Stroke Does the patient have a stroke diagnosis?: No VTE Prior VTE?: No VTE Risk Level:: Medical - moderate - high VTE Device Contraindication: Treatment Not Indicated VTE Drug Contraindication: N/A - Med Ordered Assessment and Plan (1) Vomiting: Status: Acute (2) Hypomagnesemia: Status: Acute (3) Acute hypokalemia: Status: Acute (4) Alcohol abuse: Status: Acute (5) Thrombocytopenia: Status: Acute (6) Ileus: Status: Acute (7) Pancreatic cyst: Status: Acute Assessment and Plan: A 60 years old male with PMH of diabetes type 2, alcohol abuse among others who presented to the hospital complaining of abdominal pain, and VD for the last 3 days. Ileus As reported on CT scan Passing small amount gas advance to clear liquid with tolerated Continue IV fluids Correct electrolyte imbalance Hypokalemia Hypomagnesemia Hyponatremia IV fluid Potassium corrected Magnesium corrected Sodium improving Alcohol abuse in withdrawal Advised to quit alcohol Continue phenobarbital treatment Pancreatic cyst See with CT scan The presenting likely a pseudocyst Pending GI evaluation Thrombocytopenia Chronic related to chronic alcoholism DVT PPX Xarelto
[2021-02-10] MEDS: Omeprazole 20 MG CAPSULE.DR PO (15:12)
[2021-02-10 16:10] LABS: Glucose, Whole Blood 127 mg/dL (60-115)
[2021-02-10 19:42] LABS: Glucose, Whole Blood 144 mg/dL (60-115)
[2021-02-10] MEDS: 0.9 % Sodium Chloride Flush 3 ML SYRINGE IVFLUSH (20:18)
--- NOTE | 2021-02-10 23:38 | CONS_ITS ---
DATE OF SERVICE: 02/10/2021 REFERRING PHYSICIAN: Dawit Gomez MD REASON FOR CONSULTATION: Abdominal pain, nausea, and vomiting. The patient is a 60-year-old man who was admitted to the hospital after presenting to the emergency room with complaints of abdominal pain, nausea, vomiting, and diarrhea for 2 days prior to admission. There was no associated fever or chills. He denies any unusual ingestions, ill contacts, or travel. The abdominal pain was present in the right lower quadrant and became associated with nausea, vomiting was nonbloody. He reports nonbloody diarrhea. He continues to drink alcohol and was hospitalized in September with pancreatitis secondary to alcohol. In the emergency department, CT scanning was obtained. This is reviewed. It shows calcifications in the pancreas suggestive of chronic pancreatitis and a 3 x 4.8 cm cyst in the tail of the pancreas, likely representing a pseudocyst. PAST MEDICAL HISTORY: 1. Alcohol abuse. 2. Pancreatitis. 3. Diabetes mellitus. 4. Hyperlipidemia. 5. Osteoarthritis. 6. ADD. 7. Hypotestosterone. CURRENT MEDICATIONS: His current medication list is reviewed in the chart. ALLERGIES: MULTIPLE ALLERGIES ARE REVIEWED. FAMILY HISTORY: This is reviewed with the patient and is noncontributory. SOCIAL HISTORY: Alcohol uses as noted above. He estimates he drinks 10 nip bottles on a daily basis. REVIEW OF SYSTEMS: SKIN: No pruritus. HEENT: Negative. CARDIOPULMONARY: No shortness of breath or chest pain. GASTROINTESTINAL: As above. GENITOURINARY: Negative. NEURO/PSYCHIATRIC: Negative. PHYSICAL EXAMINATION: GENERAL: Reveals a disheveled male in no acute distress. VITAL SIGNS: Reviewed in the electronic medical record and are stable. SKIN: Anicteric. HEENT: No scleral icterus. NECK: Without lymphadenopathy or thyromegaly. LUNGS: Clear. HEART: Regular rate and rhythm. S1, S2. No murmur. ABDOMEN: Soft without focal masses, guarding, or tenderness. EXTREMITIES: Without edema. LABORATORY DATA: Shows a white blood cell count of 4.2, hematocrit 33, platelet count 35. Chemistries show an AST of 23 and an ALT of 10. IMPRESSION: Abdominal pain with nausea, vomiting, and diarrhea. The differential diagnosis for his symptoms includes viral gastroenteritis, alcoholic gastritis, and pancreatitis. His lipase on admission was normal. I discussed with him the need to avoid alcohol and I would recommend empiric treatment with a proton pump inhibitor to treat any component of alcoholic gastritis. He appears to be improving symptomatically with improvement in his diarrhea as well as nausea and vomiting. His diet can be gradually advanced. Thanks for asking me to see him. I will follow him in the hospital with you. MD DIEGO Prieto/BAYRON / [id number] MTDD
[2021-02-11 03:19] VITALS: BP 120/67; PULSE 74; RESP 20; TEMP 36.6; O2SAT 100
[2021-02-11] MEDS: Omeprazole 20 MG CAPSULE.DR PO (05:37)
[2021-02-11] MEDS: Nicotine 7 MG PATCH.TD24 TRANSDERMA (05:40)
[2021-02-11 06:14] LABS: Hematocrit 35.5 % (42-52); Hemoglobin 11.9 g/dl (14.0-18.0); Mean Corpuscular HGB Conc 33.5 g/dl (31.0-36.0); Mean Corpuscular Hemoglobin 29.8 pg (27.0-33.0); Mean Corpuscular Volume 88.8 fL (80-98); Mean Platelet Volume 10.7 fL (9.4-12.4); Red Cell Distribution Width 15.9 % (11.0-16.0); White Blood Count 3.3 X10*3/uL (4.8-10.8)
[2021-02-11 06:15] LABS: Platelet Count 36 X10*3/uL (160-400)
[2021-02-11 06:43] LABS: Anion Gap 14 (12-20); Blood Urea Nitrogen 7 mg/dL (9-16); Calcium 8.4 mg/dL (8.4-10.2); Carbon Dioxide 24 mmol/L (22-29); Chloride 102 mmol/L (96-108); Creatinine Clr Calc Pharmacy 87.5; Estimated Glomerular Filt Rate > 60; Glucose Random 208 mg/dL (60-115); Potassium 4.5 mmol/L (3.3-5.1); Sodium 135 mmol/L (135-145)
[2021-02-11 07:22] VITALS: BP 135/90; PULSE 71; RESP 18; TEMP 36.4; O2SAT 93
[2021-02-11 07:32] LABS: Glucose, Whole Blood 256 mg/dL (60-115)
[2021-02-11] MEDS: Insulin Lispro 100 UNIT/ML 3 ML VIAL SUBCUT ×4 (08:12→20:38)
[2021-02-11] MEDS: 0.9 % Sodium Chloride Flush 3 ML SYRINGE IVFLUSH ×3 (08:14→20:39)
[2021-02-11 10:54] VITALS: BP 138/89; PULSE 74; RESP 18; TEMP 36.5; O2SAT 98
[2021-02-11 11:30] LABS: Glucose, Whole Blood 153 mg/dL (60-115)
[2021-02-11] MEDS: Ketorolac Tromethamine 15 MG/ML VIAL IVPUSH (11:39)
--- NOTE | 2021-02-11 14:41 | P.PNIM_ITS ---
Subjective Subjective Date of Service: 02/11/21 Interval History: The patient was seen and evaluated this morning feels better today and able to tolerate more of clear liquids abdominal pain occasions and feeling of nausea sometimes relieved by medications Denies any fever, chills or shortness of breath No reported other overnight events. Review of Systems No fever, chills but reports weakness No chest pain, palpitation No shortness of breath or coughing abdominal pain with reported nausea and vomiting No urinary symptoms No any rash or wounds Physical Exam Vital Signs: Vital Signs: Last Vital Signs Temp 97.7 F 02/11/21 10:54 Pulse 74 02/11/21 10:54 Resp 18 02/11/21 10:54 BP 138/89 02/11/21 10:54 Pulse Ox 98 02/11/21 10:54 Body Mass Index 25.8 Const: Other: Constitutional : Alert, oriented, in mild distress Neck : Normal inspection, Supple Cardiovascular : RRR, S1 S2, no lower extremity edema Respiratory : Good bilateral air entry, no crackles, wheezes or rhonchi Gastrointestinal: soft, lax, Normal bowel sounds, generalized tenderness with no surgical signs Skin : Warm/Dry, No rash Neurological : Alert & oriented x3, No focal deficit Objective Data Current Medications Generic Name Dose Route Start Last Admin Trade Name Freq PRN Reason Stop Dose Admin Acetaminophen 650 mg 02/09/21 21:39 Acetaminophen 325 Mg Tablet PO Q6H PRN Pain, Mild (Pain Scale 1-3) Insulin Human Lispro 0 unit 02/09/21 21:39 02/11/21 11:39 Insulin Lispro 100 Unit/Ml 3 Ml Vial SUBCUT 2 unit QIDACHS JOSE Administration Protocol Ketorolac Tromethamine 15 mg 02/10/21 14:07 02/11/21 11:39 Ketorolac Tromethamine 15 Mg/Ml Vial IVPUSH 15 mg Q6H PRN Administration Pain, Severe (Pain Scale 7-10) Medication 1 each 02/10/21 09:00 No Benzodiazepines MISCELLANE DAILY JOSE Nicotine 7 mg 02/09/21 19:00 02/11/21 05:40 Nicotine 7 Mg Patch.Td24 TRANSDERMA 7 mg DAILY JOSE Administration Omeprazole 20 mg 02/10/21 14:45 02/11/21 05:37 Omeprazole 20 Mg Capsule.Dr PO 20 mg DAILY@0630 JOSE Administration Ondansetron HCl 4 mg 02/09/21 21:39 Ondansetron Hcl 4 Mg/2 Ml Vial IVPUSH Q8H PRN Nausea and Vomiting Phenobarbital 45 mg 02/10/21 09:00 02/11/21 08:17 Phenobarbital 15 Mg Tablet PO 02/11/21 21:01 Not Given BID [facility] Phenobarbital 15 mg 02/12/21 09:00 Phenobarbital 15 Mg Tablet PO 02/13/21 21:01 BID [facility] Phenobarbital 15 mg 02/14/21 09:00 Phenobarbital 15 Mg Tablet PO 02/15/21 09:01 DAILY [facility] Rivaroxaban 10 mg 02/10/21 09:00 02/11/21 08:17 Rivaroxaban 10 Mg Tablet PO Not Given DAILY [facility] Sodium Chloride 3 ml 02/09/21 21:39 02/11/21 08:14 0.9 % Sodium Chloride Flush 3 Ml Syringe IVFLUSH 3 ml QSHIFT [facility] Administration Labs CBC & Chem 7: 02/11/21 05:25 02/11/21 05:25 Labs: Laboratory Results - last 24 hr 02/10/21 02/10/21 02/11/21 16:07 19:38 05:25 WBC 3.3 L RBC 4.00 L Hgb 11.9 L Hct 35.5 L MCV 88.8 MCH 29.8 MCHC 33.5 RDW 15.9 Plt Count 36 L MPV 10.7 Absolute Nucleated RBC 0.000 Nucleated RBC % (auto) 0.0 Sodium Potassium Chloride Carbon Dioxide Anion Gap BUN Creatinine Estim Creat Clear Calc Estimated GFR POC Glucose 127 H 144 H Random Glucose Calcium 02/11/21 02/11/21 02/11/21 05:25 07:26 10:58 WBC RBC Hgb Hct MCV MCH MCHC RDW Plt Count MPV Absolute Nucleated RBC Nucleated RBC % (auto) Sodium 135 Potassium 4.5 Chloride 102 Carbon Dioxide 24 Anion Gap 14 BUN 7 L Creatinine 0.82 Estim Creat Clear Calc 87.5 Estimated GFR > 60 POC Glucose 256 H 153 H Random Glucose 208 H Calcium 8.4 Microbiology Microbiology Results: Microbiology 02/09/21 12:15 Blood Culture - Preliminary Blood - Venous No growth after 48 hours. 02/09/21 12:39 Blood Culture - Preliminary Blood - Venous No growth after 24 hours. Quality Stroke Does the patient have a stroke diagnosis?: No VTE Prior VTE?: No VTE Risk Level:: Medical - moderate - high VTE Device Contraindication: Treatment Not Indicated VTE Drug Contraindication: N/A - Med Ordered Assessment and Plan (1) Vomiting: Status: Acute (2) Hypomagnesemia: Status: Acute (3) Acute hypokalemia: Status: Acute (4) Alcohol abuse: Status: Acute (5) Thrombocytopenia: Status: Acute (6) Ileus: Status: Acute (7) Pancreatic cyst: Status: Acute Assessment and Plan: A 60 years old male with PMH of diabetes type 2, alcohol abuse among others who presented to the hospital complaining of abdominal pain, and VD for the last 3 days. Ileus As reported on CT scan Passing gas, reports small bowel motion advance to regular as tolerated Discontinue IV fluids Correct electrolyte imbalance Hypokalemia Hypomagnesemia Hyponatremia Discontinue IV fluid Potassium corrected Magnesium corrected Sodium improved with 35 Alcohol abuse in withdrawal Improving Advised to quit alcohol Continue phenobarbital treatment Pancreatic cyst Seen with CT scan presenting likely a pseudocyst GI evaluated the patient, to follow-up with Dr. Pineda as outpatient within a month Thrombocytopenia Chronic related to chronic alcoholism DVT PPX Xarelto
--- NOTE | 2021-02-11 14:55 | PC.NURSE ---
Skin assessment completed today. No skin issues noted.
[2021-02-11 15:27] VITALS: BP 139/87; PULSE 65; RESP 20; TEMP 36.8; O2SAT 99
[2021-02-11 16:09] LABS: Glucose, Whole Blood 178 mg/dL (60-115)
[2021-02-11 19:27] VITALS: BP 119/75; PULSE 65; RESP 18; TEMP 36.6; O2SAT 96
[2021-02-11 20:22] LABS: Glucose, Whole Blood 240 mg/dL (60-115)
[2021-02-11] MEDS: ondansetron HCL 4 MG/2 ML VIAL IVPUSH (20:41)
[2021-02-11 23:34] VITALS: BP 109/65; PULSE 61; RESP 18; TEMP 36.6; O2SAT 97
[2021-02-12] MEDS: Ketorolac Tromethamine 15 MG/ML VIAL IVPUSH (00:13)
[2021-02-12 04:00] VITALS: BP 157/93; PULSE 63; RESP 20; TEMP 36.4; O2SAT 97
[2021-02-12] MEDS: Omeprazole 20 MG CAPSULE.DR PO (06:11)
[2021-02-12] MEDS: Nicotine 7 MG PATCH.TD24 TRANSDERMA (06:39)
[2021-02-12 07:04] LABS: Glucose, Whole Blood 200 mg/dL (60-115)
[2021-02-12 07:19] VITALS: BP 135/88; PULSE 71; RESP 18; TEMP 36.4; O2SAT 99
[2021-02-12 07:30] LABS: Alanine Aminotransferase 7 U/L (0-40); Albumin Level 3.6 g/dL (3.5-5.0); Alkaline Phosphatase 79 U/L (39-117); Aspartate Amino Transferase 17 U/L (5-37); Bilirubin Direct 0.3 mg/dL (0.0-0.5); Bilirubin Total 0.6 mg/dL (0.0-1.0); Total Protein 6.3 g/dL (6.5-8.0)
[2021-02-12 07:32] LABS: Anion Gap 13 (12-20); Blood Urea Nitrogen 10 mg/dL (9-16); Calcium 8.8 mg/dL (8.4-10.2); Carbon Dioxide 26 mmol/L (22-29); Chloride 102 mmol/L (96-108); Creatinine Clr Calc Pharmacy 77.1; Estimated Glomerular Filt Rate > 60; Glucose Random 222 mg/dL (60-115); Potassium 4.4 mmol/L (3.3-5.1); Sodium 137 mmol/L (135-145)
[2021-02-12] MEDS: Insulin Lispro 100 UNIT/ML 3 ML VIAL SUBCUT ×2 (07:40→11:21)
[2021-02-12] MEDS: 0.9 % Sodium Chloride Flush 3 ML SYRINGE IVFLUSH (07:41)
[2021-02-12 11:02] LABS: Glucose, Whole Blood 361 mg/dL (60-115)
[2021-02-12 11:14] VITALS: BP 125/66; PULSE 61; RESP 18; TEMP 37.1; O2SAT 98
--- NOTE | 2021-02-12 11:39 | PM.DS ---
DS: Providers Provider Date of Service: 02/12/21 Date of admission: 02/09/21 15:53 Primary care physician: Jose White MD Consults: 02/09/21 16:12 Consult to Gastroenterology Routine Consulting Provider: Dean Pineda Reason for consultation: Abd pain, Ileus, Pancreatic cyst. for your kind eval. DS: Diagnosis Discharge Diagnosis (1) Vomiting: Status: Acute (2) Hypomagnesemia: Status: Acute (3) Acute hypokalemia: Status: Acute (4) Alcohol abuse: Status: Acute (5) Thrombocytopenia: Status: Acute (6) Ileus: Status: Acute (7) Pancreatic cyst: Status: Acute (8) Alcohol dependence with withdrawal: Status: Acute DS: Medications Discharge Medications Home Medications: Home Medications Medication Instructions Recorded Confirmed gabapentin 400 mg PO DAILY 02/09/21 02/09/21 quetiapine 200 mg PO BEDTIME 02/09/21 02/09/21 Previous Rx's Medication Instructions Recorded blood sugar diagnostic #100 ea 12/30/20 blood-glucose meter #1 ea 12/30/20 insulin glargine 100 unit/mL (3 10 unit SUBCUT QPM #15 ml 12/30/20 mL) subcutaneous pen insulin lispro 100 unit/mL 12 unit SUBCUT TID 30 Days #15 ml 12/30/20 subcutaneous pen lancets 28 gauge #100 ea 12/30/20 pen needle, diabetic 31 gauge x #1200 ea 12/30/2001/05 DS: Summary Hospital Course Hospital Course: patient was admitted for alcoholic gastirits, ileus, and alcohol dependence with withdrawl. he was give fluids, ppi, phenobarb. sympotoms improved. diet [facility], tolerating solids, no longer in withdrawl, having bowel movements Time Spent with Patient Time attestation: Total time spent providing and/or coordinating discharge services: Discharge coordination time: Greater than 30 minutes Quality: Stroke Does the patient have a stroke diagnosis?: No Physical Exam Vital Signs: Vital Signs: Last Vital Signs Temp 98.8 F 02/12/21 11:14 Pulse 61 02/12/21 11:14 Resp 18 02/12/21 11:14 BP 125/66 02/12/21 11:14 Pulse Ox 98 02/12/21 11:14 Body Mass Index 25.8 General: AO X 3, no acute distress Resp: CTA bilateral CVS: S1,S2,RRR GI: soft, non tender, non distended Neuro: motor grossly intact Psych: appropriate affect DS: Data Data Completed and Pending Completed studies during hospitalization [Text1]: Procedures Transfusion of Nonautologous Platelets into Peripheral Vein, Percutaneous Approach (09/12/20) Labs on day of discharge: Laboratory Results - last 24 hr 02/11/21 02/11/21 02/12/21 16:06 20:19 06:12 Sodium 137 Potassium 4.4 Chloride 102 Carbon Dioxide 26 Anion Gap 13 BUN 10 Creatinine 0.93 Estim Creat Clear Calc 77.1 Estimated GFR > 60 POC Glucose 178 H 240 H Random Glucose 222 H Calcium 8.8 Total Bilirubin Direct Bilirubin AST ALT Alkaline Phosphatase Total Protein Albumin 02/12/21 02/12/21 02/12/21 06:12 07:01 10:52 Sodium Potassium Chloride Carbon Dioxide Anion Gap BUN Creatinine Estim Creat Clear Calc Estimated GFR POC Glucose 200 H 361 H* Random Glucose Calcium Total Bilirubin 0.6 Direct Bilirubin 0.3 AST 17 ALT 7 Alkaline Phosphatase 79 Total Protein 6.3 L Albumin 3.6 Preliminary micro results at discharge 02/09/21 12:39 Blood Culture - Preliminary Blood - Venous No growth after 48 hours. 02/09/21 12:15 Blood Culture - Preliminary Blood - Venous No growth after 48 hours. Discharge Plan Discharge Patient Disposition: Home, Self-Care Discharge Diagnosis: ileus Referrals: Jose White MD [Primary Care Provider] - 1 Week Discharge Medications: Continued insulin lispro [Admelog SoloStar U-100 Insulin] 100 unit/mL insulin pen 12 unit subcut TID 30 Days Qty: 15 RF: 1 Basaglar KwikPen U-100 Insulin 100 unit/mL (3 mL) insulin pen 10 unit SUBCUT QPM Qty: 15 RF: 2 (DME) pen needle, diabetic [BD Ultra-Fine Short Pen Needle] 31 gauge x 5/16 needle See Rx Instructions .ROUTE .MEDSUPPLY Qty: 1200 RF: 0 (DME) blood-glucose meter [FreeStyle Lite Meter] Kit See Rx Instructions .ROUTE .MEDSUPPLY Qty: 1 RF: 0 (DME) lancets [FreeStyle Lancets] 28 gauge misc See Rx Instructions .ROUTE .MEDSUPPLY Qty: 100 RF: 6 (DME) FreeStyle Lite Strips Strip See Rx Instructions .ROUTE .MEDSUPPLY Qty: 100 RF: 6 gabapentin 400 mg Tablet 400 mg PO DAILY RF: 0 quetiapine 100 mg tablet 200 mg PO BEDTIME RF: 0 Discharge Orders: Discharge Order (Routine); Ordered 02/12/21 Ordered By: Alberto Botello Diet: advance to usual diet Activity on Discharge: As tolerated Stand Alone Forms: Patient Portal Discharge page Care Plan Goals: rec[facility] Health Concerns: etoh Plan of Treatment: avoid alcohol Assessment: see above
--- NOTE | 2021-02-12 11:57 | MHC.CM.PN ---
pt dcd home no skilled servceis ordered by
--- NOTE | 2021-02-12 12:10 | MHC.CM.PN ---
[place] [facility]
== END 2021-02-12 12:48 | disposition home or self-care (01) | DRG 241 ==
LOC: HO.ED 15:13 → HO.EDOVER 16:11 → HO.IMC 20:26
PROVIDERS: Admitting Provider Student in an Organized Health Care Education/Training Program; Emergency Provider Emergency Medicine; PCP Internal Medicine; Visit Provider Internal Medicine
DX: K29.20 Alcoholic gastritis without bleeding (principal); D69.6 Thrombocytopenia, unspecified; K86.2 Cyst of pancreas; E83.42 Hypomagnesemia; K56.7 Ileus, unspecified; F98.8 Other specified behavioral and emotional disorders with onset usually occurring in childhood and adolescence; E87.6 Hypokalemia; F10.239 Alcohol dependence with withdrawal, unspecified; Z20.822 Contact with and (suspected) exposure to COVID-19; F17.210 Nicotine dependence, cigarettes, uncomplicated; Z71.6 Tobacco abuse counseling; Z79.4 Long term (current) use of insulin; Z79.899 Other long term (current) drug therapy
CPT/HCPCS: 36415; 74176; 80048; 80076; 80307; 81001; 82077; 82947; 83605; 83690; 83735; 85025; 85027; 87040; 87635; 99285; J1885; J2270; J2405; J2560; J3475

== ENCOUNTER 2021-02-27 20:38 | Inpatient (IN) | payer OTHER, SELFPAY ==
--- NOTE | ~2021-02-27 | CT_ITS ---
EXAMINATION: CT HEAD WITHOUT CONTRAST CLINICAL INFORMATION: Brain aneurysm. Headaches. COMPARISON: 09/12/2020 TECHNIQUE: Contiguous axial imaging was performed from the skull base to vertex without intravenous contrast. This CT examination was performed using dose optimization techniques as appropriate, variously including the following: * Automated exposure control * Adjustment of mA and/or kV according to patient size (this includes techniques or standardized protocols for targeted exams where dose is matched to indication/reason for exam; i.e. extremities or head) Use of iterative reconstruction technique DLP: 751 mGy-cm. FINDINGS: There is no evidence of acute intracranial hemorrhage or territorial infarction. No abnormal mass effect or midline shift is seen. James to white matter differentiation is well preserved. No extra-axial fluid collections are identified. No hydrocephalus. Proportional prominence of the ventricles and sulcal spaces is consistent with mild volume loss. There is no abnormal attenuation within the brain parenchyma. 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 Soft tissue swelling overlies the high left parietal lesion. No calvarial fracture. The mastoid air cells and visualized portions of the paranasal sinuses are well aerated. CT/CT head/brain wo con IMPRESSION: No acute intracranial pathology. Basilar tip aneurysm again noted.
--- NOTE | ~2021-02-27 | CT_ITS ---
EXAMINATION: CT ABDOMEN AND PELVIS WITHOUT CONTRAST CLINICAL INFORMATION: Vomiting. History of pancreatitis. Ileus. COMPARISON: CT abdomen pelvis February 09, 2021 TECHNIQUE: Multidetector volumetric imaging was performed from the superior aspect of the liver through the pubic symphysis. Sagittal and coronal reformatted images were obtained on the technologist's workstation. This CT examination was performed using dose optimization techniques as appropriate, variously including the following: *Automated exposure control *Adjustment of mA and/or kV according to patient size (this includes techniques or standardized protocols for targeted exams where dose is matched to indication/reason for exam; i.e. extremities or head) *Use of iterative reconstruction technique DLP: 415 mGy-cm FINDINGS: LUNG BASES: The visualized lung bases are unremarkable. LIVER, GALLBLADDER, AND BILIARY TREE: The liver is normal in size, shape, and attenuation. No focal hepatic lesion or biliary ductal dilatation is present. The gallbladder is unremarkable with no evidence of radiopaque gallstones, gallbladder wall thickening, or obvious pericholecystic inflammatory changes. PANCREAS: Coarse calcifications in the pancreas consistent with chronic pancreatitis. Redemonstrated pseudocyst involving the distal body and tail the pancreas. This has thickened wall. Measures about 4.5 cm in diameter. Similar size to the prior CAT scan of February 09, 2021. The surrounding edema in the mesenteric fat has diminished slightly since the prior CAT scan February 09, 2021 remains present. No new cysts. The pancreatic duct dilatation. SPLEEN: Unremarkable. ADRENAL GLANDS: Unremarkable. KIDNEYS AND URETERS: The kidneys are normal in size, shape, and attenuation. No hydronephrosis, hydroureter, or calculi seen. No perinephric stranding. Small cortical cyst lower pole of left kidney measuring 2 cm. Density measurement of 12 Hounsfield units. No follow-up imaging is recommended for simple renal cyst. BLADDER: Unremarkable. GASTROINTESTINAL TRACT: The small and large bowel are unremarkable. The appendix is unremarkable. ABDOMINAL WALL: Small fat-containing left inguinal hernia. LYMPH NODES: Normal. VASCULAR: Scattered vascular calcifications of the abdominal aorta and iliac arteries. There is no aneurysm. PELVIC VISCERA: Unremarkable. OSSEOUS STRUCTURES: Multilevel degenerative spondylosis of the spine. CT/CT abdomen pelvis wo con IMPRESSION: 1. Redemonstration of pancreatic pseudocyst. Diminishing edema around the pseudocyst since prior CAT scan February 09, 2021. Calcifications in the pancreas from chronic pancreatitis. 2. No acute abnormality of bowel.
[2021-02-27 20:48] VITALS: BP 144/125; PULSE 109; RESP 16; O2SAT 98; BMI 25.0
[2021-02-27 20:53] LABS: Glucose, Whole Blood 496 mg/dL (60-115)
--- NOTE | 2021-02-27 21:00 | ED.ABDPAIN ---
HPI - Abdominal Pain General Chief Complaint: Abdominal Pain Stated Complaint: upper abd pain Time Seen by Provider: 02/27/21 21:00 Source: patient, EMS and old records reviewed Mode of arrival: EMS Limitations: no limitations History of Present Illness HPI narrative: 60 yo male hx of DM, alcohol abuse has been on a cooper since father's day after his daughter didn't call him c/o vomiting with some brown material noted no lower GIB sypmtoms, he is not taking care of himself MD elicited complaint: abdominal pain Pertinent past history: other (gastritis/pancreatitis) Onset (ago): day(s) (2) Pain Consistency: constant Location: epigastric Severity: similar to previous episodes Quality: stabbing Radiation: back Migration to: no migration Exacerbating factors: eating, vomiting and movement Relieving factors: nothing Context: history of similar episodes and other (heavy ETOH abuse) Associated symptoms: nausea, vomiting and chills Related Data Home Medications Medication Instructions Recorded Confirmed gabapentin 1 cap PO TID 02/27/21 02/27/21 insulin glargine [Lantus Solostar 10 unit SUBCUT BEDTIME 02/27/21 02/27/21 U-100 Insulin] Previous Rx's Medication Instructions Recorded insulin lispro 100 unit/mL 12 unit SUBCUT TID 30 Days #15 ml 12/30/20 subcutaneous pen Allergies Allergy/AdvReac Type Severity Reaction Status Date / Time acamprosate Allergy Unknown redness Verified 06/11/20 08:50 and itching Docusate Sodium Allergy Unknown Migraines Verified 07/16/20 14:05 Review of Systems Review of Systems Constitutional : No Weight loss, No Fever, No Chills ENT/Mouth : No sore throat, No Rhinorrhea Eyes: No Swelling, No Redness Cardiovascular : No Chest Pain, No SOB, NoEdema Respiratory : No Cough, No Sputum, No Wheezing Gastrointestinal : Positive Nausea, Positive Vomiting, no Diarrhea, positive abdominal Pain, No Hematochezia, No Melena Genitourinary : No Dysuria, No Urinary Frequency, No Hematuria, No Urgency Musculoskeletal : No joint pain, No Myalgias, No Joint Swelling Skin : No Skin Lesions, No rash Neuro : pos Weakness, No Numbness, No Dizziness, No Headache Psych : No Anxiety/Panic, No Depression Heme/Lymph: No Bruising, No Lymphadenopathy Endocrine : No Polyuria, No Polydipsia All other systems reviewed and are negative. Physical Exam Vital Signs: Vital Signs: Last Vital Signs Temp 98.4 F 02/28/21 00:41 Pulse 84 02/28/21 00:41 Resp 16 02/28/21 00:41 BP 100/62 02/28/21 00:41 Pulse Ox 98 02/28/21 00:41 Body Mass Index 25.0 Appearance: Alert. Oriented X3. Mild acute distress. active dry heaving Eyes: Pupils equal, round and reactive to light. ENT: Pharynx moderately dry MM Neck: Normal inspection. Neck supple. CVS: tachycardic heart rate and rhythm. Pulses normal. Respiratory: No respiratory distress. Breath sounds normal. Abdomen: Soft and moderate epigastric ttp with vol guarding no rebound Skin: Skin warm and dry. Normal skin color. Normal skin turgor. Extremities: No lower extremity edema. No calf ttp Neuro: Oriented X 3. No motor deficit. No sensory deficit. Course Course Course Narrative: lactic acid high likely combination of ETOH and dehydration - receiving 3L of IVF lactic acidosis, thrombocytopenia is due to dehydration and ETOH abuse not infection or severe sepsis patient is not toxic appearing, drinking water and watching TV - repeat bmp and lactic acid ordered, shockingly HCO3 is 20 lactic acid trending down to 5.2 repeat BMP gap closed HCO3 stable, planned to admit to medicine MDM - Abdominal Pain MDM Narrative Medical decision making narrative: 60 yo male hx of DM, alcohol abuse has been on a cooper since father's day after his daughter didn't call him c/o vomiting with some brown material noted no lower GIB sypmtoms, he is not taking care of himself at this time labs, IVF x 2L, IV morphine/ativan for symptoms control, IV insulin for hyperglycemia, CT scan for ileus/pancreatitis, dispo per results and findings. Anticipate admission Lab Data Result diagrams: 02/27/21 22:17 02/28/21 00:29 Labs: Lab Results 02/27/21 02/27/21 02/27/21 Range/Units 20:47 22:14 22:16 WBC (4.8-10.8) X10*3/uL RBC (4.60-5.80) X10*6/uL Hgb (14.0-18.0) g/dl Hct (42-52) % MCV (80-98) fL MCH (27.0-33.0) pg MCHC (31.0-36.0) g/dl RDW (11.0-16.0) % Plt Count (160-400) X10*3/uL MPV (9.4-12.4) fL Immature Gran % (Auto) (0.0-0.4) % Neut % (Auto) (45-73) % Lymph % (Auto) (20-40) % [place] % (Auto) (2-11) % Eos % (Auto) (0-4) % Baso % (Auto) (0-2) % Lymph # (Auto) (1.2-4.9) X10*3/uL [place] # (Auto) (0.1-1.2) X10*3/uL Eos # (Auto) (0.0-0.4) X10*3/uL Baso # (Auto) (0.0-0.2) X10*3/uL Abs Immat Gran (auto) (0.00-0.03) X10*3/uL Absolute Neuts (auto) (2.0-8.3) X10*3/uL Absolute Nucleated RBC (0.0-0.012) X10*3/uL Nucleated RBC % (auto) (0.0-0.2) /100WBC VBG pH (7.32-7.43) VBG pCO2 mmHg VBG pO2 mmHg VBG HCO3 (22-26) mmol/L VBG O2 Saturation % VBG Base Excess mmol/L Sodium (135-145) mmol/L Potassium (3.3-5.1) mmol/L Chloride (96-108) mmol/L Carbon Dioxide (22-29) mmol/L Anion Gap (12-20) BUN (9-16) mg/dL Creatinine (0.5-1.4) mg/dL Estim Creat Clear Calc Estimated GFR POC Glucose 496 H* (60-115) mg/dL Random Glucose (60-115) mg/dL Lactic Acid 8.9 H* (0.5-2.0) mmol/L Lactic Acid Fup @ 2Hr (0.5-2.0) mmol/L Calcium (8.4-10.2) mg/dL Magnesium (1.6-2.6) mg/dL Total Bilirubin (0.0-1.0) mg/dL Direct Bilirubin (0.0-0.5) mg/dL AST (5-37) U/L ALT (0-40) U/L Alkaline Phosphatase (39-117) U/L Lactate Dehydrogenase (118-273) U/L Troponin I High Sens (<3.5-35.0) ng/L Total Protein (6.5-8.0) g/dL Albumin (3.5-5.0) g/dL Lipase (8-78) U/L Urine Color Urine Appearance Urine pH (5.0-8.0) Ur Specific [place] (1.005-1.025) Urine Protein (NEG-TRACE) MG/DL Urine Glucose (UA) (NEG) MG/DL Urine Ketones (NEG) MG/DL Urine Blood (NEG) Urine Nitrite (NEG) Ur Leukocyte Esterase (NEG) Urine RBC (0) /HPF Urine WBC (0-4) /HPF Ur Squamous Epith Cells /LPF Urine Bacteria /LPF Ethyl Alcohol < 10 mg/dL Acetone, Qual (Negative) COVID-19 (KAYLA) (Negative) COVID-19 Clin Com 02/27/21 02/27/21 02/27/21 Range/Units 22:16 22:17 22:17 WBC 6.0 (4.8-10.8) X10*3/uL RBC 3.85 L (4.60-5.80) X10*6/uL Hgb 11.9 L (14.0-18.0) g/dl Hct 33.0 L (42-52) % MCV 85.7 (80-98) fL MCH 30.9 (27.0-33.0) pg MCHC 36.1 H (31.0-36.0) g/dl RDW 14.7 (11.0-16.0) % Plt Count 50 L D (160-400) X10*3/uL MPV 9.1 L (9.4-12.4) fL Immature Gran % (Auto) 0.2 (0.0-0.4) % Neut % (Auto) 83.5 H (45-73) % Lymph % (Auto) 7.9 L (20-40) % [place] % (Auto) 8.2 (2-11) % Eos % (Auto) 0.0 (0-4) % Baso % (Auto) 0.2 (0-2) % Lymph # (Auto) 0.5 L (1.2-4.9) X10*3/uL [place] # (Auto) 0.5 (0.1-1.2) X10*3/uL Eos # (Auto) 0.0 (0.0-0.4) X10*3/uL Baso # (Auto) 0.0 (0.0-0.2) X10*3/uL Abs Immat Gran (auto) 0.01 (0.00-0.03) X10*3/uL Absolute Neuts (auto) 5.0 (2.0-8.3) X10*3/uL Absolute Nucleated RBC 0.000 (0.0-0.012) X10*3/uL Nucleated RBC % (auto) 0.0 (0.0-0.2) /100WBC VBG pH (7.32-7.43) VBG pCO2 mmHg VBG pO2 mmHg VBG HCO3 (22-26) mmol/L VBG O2 Saturation % VBG Base Excess mmol/L Sodium 137 (135-145) mmol/L Potassium 3.7 (3.3-5.1) mmol/L Chloride 92 L (96-108) mmol/L Carbon Dioxide 20 L (22-29) mmol/L Anion Gap 29 H (12-20) BUN 13 (9-16) mg/dL Creatinine 1.37 (0.5-1.4) mg/dL Estim Creat Clear Calc 52.3 Estimated GFR 53 POC Glucose (60-115) mg/dL Random Glucose 315 H D (60-115) mg/dL Lactic Acid (0.5-2.0) mmol/L Lactic Acid Fup @ 2Hr (0.5-2.0) mmol/L Calcium 8.5 (8.4-10.2) mg/dL Magnesium 1.5 L (1.6-2.6) mg/dL Total Bilirubin 1.2 H (0.0-1.0) mg/dL Direct Bilirubin 0.6 H (0.0-0.5) mg/dL AST 17 (5-37) U/L ALT 9 (0-40) U/L Alkaline Phosphatase 124 H D (39-117) U/L Lactate Dehydrogenase 142 (118-273) U/L Troponin I High Sens < 3.5 (<3.5-35.0) ng/L Total Protein 7.1 (6.5-8.0) g/dL Albumin 3.9 (3.5-5.0) g/dL Lipase 32 (8-78) U/L Urine Color Urine Appearance Urine pH (5.0-8.0) Ur Specific [place] (1.005-1.025) Urine Protein (NEG-TRACE) MG/DL Urine Glucose (UA) (NEG) MG/DL Urine Ketones (NEG) MG/DL Urine Blood (NEG) Urine Nitrite (NEG) Ur Leukocyte Esterase (NEG) Urine RBC (0) /HPF Urine WBC (0-4) /HPF Ur Squamous Epith Cells /LPF Urine Bacteria /LPF Ethyl Alcohol mg/dL Acetone, Qual Moderate H (Negative) COVID-19 (KAYLA) (Negative) COVID-19 Clin Com 02/27/21 02/27/21 02/27/21 Range/Units 22:26 22:51 23:37 WBC (4.8-10.8) X10*3/uL RBC (4.60-5.80) X10*6/uL Hgb (14.0-18.0) g/dl Hct (42-52) % MCV (80-98) fL MCH (27.0-33.0) pg MCHC (31.0-36.0) g/dl RDW (11.0-16.0) % Plt Count (160-400) X10*3/uL MPV (9.4-12.4) fL Immature Gran % (Auto) (0.0-0.4) % Neut % (Auto) (45-73) % Lymph % (Auto) (20-40) % [place] % (Auto) (2-11) % Eos % (Auto) (0-4) % Baso % (Auto) (0-2) % Lymph # (Auto) (1.2-4.9) X10*3/uL [place] # (Auto) (0.1-1.2) X10*3/uL Eos # (Auto) (0.0-0.4) X10*3/uL Baso # (Auto) (0.0-0.2) X10*3/uL Abs Immat Gran (auto) (0.00-0.03) X10*3/uL Absolute Neuts (auto) (2.0-8.3) X10*3/uL Absolute Nucleated RBC (0.0-0.012) X10*3/uL Nucleated RBC % (auto) (0.0-0.2) /100WBC VBG pH 7.46 H (7.32-7.43) VBG pCO2 29 mmHg VBG pO2 188 mmHg VBG HCO3 21 L (22-26) mmol/L VBG O2 Saturation 100.0 % VBG Base Excess -1.1 mmol/L Sodium (135-145) mmol/L Potassium (3.3-5.1) mmol/L Chloride (96-108) mmol/L Carbon Dioxide (22-29) mmol/L Anion Gap (12-20) BUN (9-16) mg/dL Creatinine (0.5-1.4) mg/dL Estim Creat Clear Calc Estimated GFR POC Glucose 284 H (60-115) mg/dL Random Glucose (60-115) mg/dL Lactic Acid (0.5-2.0) mmol/L Lactic Acid Fup @ 2Hr (0.5-2.0) mmol/L Calcium (8.4-10.2) mg/dL Magnesium (1.6-2.6) mg/dL Total Bilirubin (0.0-1.0) mg/dL Direct Bilirubin (0.0-0.5) mg/dL AST (5-37) U/L ALT (0-40) U/L Alkaline Phosphatase (39-117) U/L Lactate Dehydrogenase (118-273) U/L Troponin I High Sens (<3.5-35.0) ng/L Total Protein (6.5-8.0) g/dL Albumin (3.5-5.0) g/dL Lipase (8-78) U/L Urine Color Urine Appearance Urine pH (5.0-8.0) Ur Specific [place] (1.005-1.025) Urine Protein (NEG-TRACE) MG/DL Urine Glucose (UA) (NEG) MG/DL Urine Ketones (NEG) MG/DL Urine Blood (NEG) Urine Nitrite (NEG) Ur Leukocyte Esterase (NEG) Urine RBC (0) /HPF Urine WBC (0-4) /HPF Ur Squamous Epith Cells /LPF Urine Bacteria /LPF Ethyl Alcohol mg/dL Acetone, Qual (Negative) COVID-19 (KAYLA) Negative (Negative) COVID-19 Clin Com See Note 02/27/21 02/28/21 02/28/21 Range/Units 23:37 00:29 00:29 WBC (4.8-10.8) X10*3/uL RBC (4.60-5.80) X10*6/uL Hgb (14.0-18.0) g/dl Hct (42-52) % MCV (80-98) fL MCH (27.0-33.0) pg MCHC (31.0-36.0) g/dl RDW (11.0-16.0) % Plt Count (160-400) X10*3/uL MPV (9.4-12.4) fL Immature Gran % (Auto) (0.0-0.4) % Neut % (Auto) (45-73) % Lymph % (Auto) (20-40) % [place] % (Auto) (2-11) % Eos % (Auto) (0-4) % Baso % (Auto) (0-2) % Lymph # (Auto) (1.2-4.9) X10*3/uL [place] # (Auto) (0.1-1.2) X10*3/uL Eos # (Auto) (0.0-0.4) X10*3/uL Baso # (Auto) (0.0-0.2) X10*3/uL Abs Immat Gran (auto) (0.00-0.03) X10*3/uL Absolute Neuts (auto) (2.0-8.3) X10*3/uL Absolute Nucleated RBC (0.0-0.012) X10*3/uL Nucleated RBC % (auto) (0.0-0.2) /100WBC VBG pH (7.32-7.43) VBG pCO2 mmHg VBG pO2 mmHg VBG HCO3 (22-26) mmol/L VBG O2 Saturation % VBG Base Excess mmol/L Sodium 135 (135-145) mmol/L Potassium 4.2 (3.3-5.1) mmol/L Chloride 95 L (96-108) mmol/L Carbon Dioxide 24 (22-29) mmol/L Anion Gap 20 (12-20) BUN 12 (9-16) mg/dL Creatinine 1.07 (0.5-1.4) mg/dL Estim Creat Clear Calc 67.0 Estimated GFR > 60 POC Glucose (60-115) mg/dL Random Glucose 297 H (60-115) mg/dL Lactic Acid (0.5-2.0) mmol/L Lactic Acid Fup @ 2Hr 5.2 H* (0.5-2.0) mmol/L Calcium 7.8 L D (8.4-10.2) mg/dL Magnesium (1.6-2.6) mg/dL Total Bilirubin (0.0-1.0) mg/dL Direct Bilirubin (0.0-0.5) mg/dL AST (5-37) U/L ALT (0-40) U/L Alkaline Phosphatase (39-117) U/L Lactate Dehydrogenase (118-273) U/L Troponin I High Sens (<3.5-35.0) ng/L Total Protein (6.5-8.0) g/dL Albumin (3.5-5.0) g/dL Lipase (8-78) U/L Urine Color YELLOW Urine Appearance CLEAR Urine pH 6.0 (5.0-8.0) Ur Specific [place] 1.025 (1.005-1.025) Urine Protein NEG (NEG-TRACE) MG/DL Urine Glucose (UA) >=1000 H (NEG) MG/DL Urine Ketones >=80 (NEG) MG/DL Urine Blood TRACE (NEG) Urine Nitrite NEG (NEG) Ur Leukocyte Esterase NEG (NEG) Urine RBC 1-4 (0) /HPF Urine WBC 0-2 (0-4) /HPF Ur Squamous Epith Cells TRACE /LPF Urine Bacteria TRACE /LPF Ethyl Alcohol mg/dL Acetone, Qual (Negative) COVID-19 (KAYLA) (Negative) COVID-19 Clin Com ECG Data Attestation: I personally reviewed and interpreted this ECG as follows: ECG interpretation date: 02/27/21 ECG interpretation time: 21:34 Interpretation: Rate: 90 Rhythm: NSR [place]: normal Normal P waves. Normal [place]ICARD[place]. Normal QRS complex. ST T wave : nonspecific no LUIS FERNANDO qTC: prolonged prior studies: no acute ischemia The study has been interpreted contemporaneously by me. . Critical Care Time Critical Care Time Critical Care Time: Yes Total Critical Care Time: 60 Attestation: repeat labs, IVF x 3L, IV insulin, review of old records I attest to this time spent taking care of the patient Discharge Plan Discharge Clinical Impression: Hypomagnesemia, Alcohol abuse, Acidosis, lactic, Acute dehydration, Acute hyperglycemia Vomiting Qualifiers: Vomiting type: unspecified Vomiting Intractability: non-intractable Nausea presence: with nausea Qualified Code(s): R11.2 - Nausea with vomiting, unspecified Patient Disposition: Admitted As Inpatient [facility] Past Medical History Attestation statement: The following information was validated with the patient. Medical History Attention deficit disorder Degenerative disc disease, cervical Depression Diabetes mellitus Dyslipidemia History of substance abuse Hypotestosteronism Osteoarthritis of right hand Pancreatitis Surgical History History of surgery Family History Family History Father Cancer Mother Cancer Diabetes Social History Social History Household Members: None Housing: Apartment Do you presently have visiting nurse or other home services: No Unable to assess alcohol history related to: Refusing to respond Alcohol intake: current Alcohol intake frequency: 3 or more drinks per day Alcohol type: wine and hard liquor Patient Tobacco Use Status: Current everyday Tobacco user Tobacco use type: Cigarette Cigarette Packs Per Day: 1 Cigarettes Per Day: 20.0 Advance Directives: No Advance Directives Information Provided: No service: No Current occupational status: disabled Current occupation: Right Handed
--- NOTE | 2021-02-27 21:01 | ECG_ITS ---
Test Reason : ABDOMINAL PAIN Blood Pressure : / mmHG Vent. Rate : 090 BPM Atrial Rate : 090 BPM P-R Int : 156 ms QRS Dur : 074 ms QT Int : 416 ms P-R-T Axes : 053 017 046 degrees QTc Int : 508 ms Normal sinus rhythm Prolonged QT Abnormal ECG When compared with ECG of 25-SEP-2020 17:24, QT has lengthened Referred By: Rani Forrest Electronically Signed By:KYLE MONTEZ
--- NOTE | 2021-02-27 21:02 | PC.NURSE ---
POC 496 (Adriane) aware
[2021-02-27] MEDS: ondansetron HCL 4 MG/2 ML VIAL IVPUSH (21:11)
[2021-02-27 21:14] VITALS: RESP 17
[2021-02-27] MEDS: Morphine Sulfate 4 MG/ML CARTRIDGE IVPUSH (21:14)
[2021-02-27] MEDS: LORazepam 2 MG/ML VIAL 1 MG IVPUSH (21:15)
[2021-02-27] MEDS: Insulin Regular, Human 100 UNIT/ML 3 ML VIAL IVPUSH (21:18)
[2021-02-27] MEDS: Magnesium Sulfate/H2O 2 GM/50 ML PIGGYBACK IV (21:23)
[2021-02-27] MEDS: 0.9 % Sodium Chloride 1,000 ML 999 ML IVCONT ×2 (21:27→21:35)
[2021-02-27] MEDS: Pantoprazole Sodium 40 MG/10 ML VIAL IVPUSH (21:31)
[2021-02-27 22:23] LABS: MANUAL DIFF FLAG NO
[2021-02-27 22:25] LABS: Basophils Percent Auto 0.2 % (0-2); Hemoglobin 11.9 g/dl (14.0-18.0); Imm Gran Abs Auto 0.01 X10*3/uL (0.00-0.03); Imm Gran Pct Auto 0.2 % (0.0-0.4); Lymphocytes Absolute Auto 0.5 X10*3/uL (1.2-4.9); Lymphocytes Percent Auto 7.9 % (20-40); Mean Corpuscular HGB Conc 36.1 g/dl (31.0-36.0); Mean Corpuscular Hemoglobin 30.9 pg (27.0-33.0); Mean Corpuscular Volume 85.7 fL (80-98); Mean Platelet Volume 9.1 fL (9.4-12.4); Monocytes Absolute Auto 0.5 X10*3/uL (0.1-1.2); Monocytes Percent Auto 8.2 % (2-11); Neutrophils Percent Auto 83.5 % (45-73); Red Blood Count 3.85 X10*6/uL (4.60-5.80); Red Cell Distribution Width 14.7 % (11.0-16.0)
--- NOTE | 2021-02-27 22:27 | PHA.MEDREC ---
Pharmacy Consult ? Medication Reconciliation Pharmacy has completed the medication reconciliation. Patient states they take two insulin pens, meaning he is no longer taking the R insulin. He has not taken anything in three days.
[2021-02-27 22:28] LABS: Platelet Count 50 X10*3/uL (160-400)
[2021-02-27 22:34] LABS: VBG Base Excess -1.1 mmol/L; VBG HCO3 21 mmol/L (22-26); VBG pCO2 29 mmHg; VBG pH 7.46 (7.32-7.43); VBG pO2 188 mmHg
[2021-02-27 22:37] LABS: Venous Blood Gas Refer to POC result
--- NOTE | 2021-02-27 22:53 | PC.NURSE ---
POC 284 (Adriane) aware
[2021-02-27 22:54] LABS: Lactic Acid 8.9 mmol/L (0.5-2.0)
[2021-02-27 22:55] LABS: Alanine Aminotransferase 9 U/L (0-40); Albumin Level 3.9 g/dL (3.5-5.0); Alkaline Phosphatase 124 U/L (39-117); Anion Gap 29 (12-20); Aspartate Amino Transferase 17 U/L (5-37); Bilirubin Direct 0.6 mg/dL (0.0-0.5); Bilirubin Total 1.2 mg/dL (0.0-1.0); Blood Urea Nitrogen 13 mg/dL (9-16); Calcium 8.5 mg/dL (8.4-10.2); Carbon Dioxide 20 mmol/L (22-29); Chloride 92 mmol/L (96-108); Creatinine Clr Calc Pharmacy 52.3; Estimated Glomerular Filt Rate 53; Glucose Random 315 mg/dL (60-115); Lactate Dehydrogenase 142 U/L (118-273); Lipase 32 U/L (8-78); Magnesium 1.5 mg/dL (1.6-2.6); Potassium 3.7 mmol/L (3.3-5.1); Sodium 137 mmol/L (135-145); Total Protein 7.1 g/dL (6.5-8.0)
[2021-02-27 22:55] LABS: Glucose, Whole Blood 284 mg/dL (60-115)
[2021-02-27 23:02] LABS: Troponin-I High Sensitivity < 3.5 ng/L (<3.5-35.0)
[2021-02-27 23:16] VITALS: PULSE 87; RESP 16
[2021-02-27] MEDS: Lactated Ringers 1,000 ML 999 ML IV (23:22)
[2021-02-27 23:38] LABS: Ethanol < 10 mg/dL
[2021-02-27 23:44] LABS: Glucose Urine UA >=1000 MG/DL (NEG); Leukocyte Esterase Urine NEG (NEG); Nitrite Urine NEG (NEG); Specific Gravity - Urine 1.025 (1.005-1.025); Urine Blood TRACE (NEG); Urine Ketones >=80 MG/DL (NEG); Urine Protein NEG (NEG-TRACE)
[2021-02-27 23:47] LABS: Appearance Urine CLEAR; Color Urine YELLOW
[2021-02-27 23:53] LABS: Acetone, serum QL Moderate (Negative)
[2021-02-27 23:57] LABS: COVID-19 Test Negative (Negative); IDNOW Serial# 9DD0AD1C
[2021-02-27 23:59] LABS: Bacteria Urine TRACE /LPF; Squamous Epithelial Cell Urine TRACE /LPF; WBC Urine 0-2 /HPF (0-4)
[2021-02-28] VITALS (10 sets, daily range): BP systolic 89–129; BP diastolic 61–83; PULSE 68–85; RESP 16–20; TEMP 35.8–36.9; O2SAT 94–99
[2021-02-28 00:18] LABS: Reflex Lactate? Lactic Acid Added
[2021-02-28] MEDS: Nicotine 21 MG PATCH.TD24 TRANSDERMA ×3 (00:31→15:16)
[2021-02-28] MEDS: PHENobarbitaL sodium 130 MG/ML VIAL 205 MG IM (00:33)
[2021-02-28 00:56] LABS: ~Lactic Acid-LAB USE ONLY 5.2 mmol/L (0.5-2.0)
--- NOTE | 2021-02-28 00:56 | PC.NURSE ---
lactic 5.2 (Adriane) aware
[2021-02-28 01:11] LABS: Anion Gap 20 (12-20); Blood Urea Nitrogen 12 mg/dL (9-16); Calcium 7.8 mg/dL (8.4-10.2); Carbon Dioxide 24 mmol/L (22-29); Chloride 95 mmol/L (96-108); Estimated Glomerular Filt Rate > 60; Glucose Random 297 mg/dL (60-115); Potassium 4.2 mmol/L (3.3-5.1); Sodium 135 mmol/L (135-145)
--- NOTE | 2021-02-28 01:26 | P.HPHOSP_ITS ---
History of Present Illness Date of Service: 02/28/21 Chief Complaint: Abd pain 60-year-old male with a past medical history of alcohol abuse, diabetes, thrombocytopenia, history of brain aneurysm, tobacco dependence, history of pancreatitis / pseudocyst, history of ileus, alcohol abuse presented to the hospital with a chief complaint of nausea vomiting and abdominal discomfort for the past 2 days. Patient reports that he drinks regularly last drink was this morning; he has not been eating well; reports he has history of pancreatitis and for the past 2 days he has been having similar abdominal pain located in the upper abdomen associated with nausea and vomiting. Patient reports that he has history of diabetes-but is noncompliant with his insulin; last Insulin dose was couple days ago. patient reports that he has a history of brain aneurysm and has not had any intervention and has been having intermittent headaches; denies any blurry vision focal weakness. Denies any lightheadedness or dizziness. Patient denies any urinary symptoms. Denies any chest pain palpitations. Review of all other systems is negative except mentioned above ER course: Per ER team patient noted to be very dehydrated, mild abdominal tenderness noted, CT abdomen showed chronic pseudocyst; lipase was within normal limits. But labs also noted to have normal pH, CBD elevated lactate, a high anion gap, ketoacidosis, given IV fluids with improvement in anion gap. And improving lactic acidosis. Patient also received phenobarb for alcohol withdrawal. Admitted to the hospital for further management. [facility] Medical History Attention deficit disorder Degenerative disc disease, cervical Depression Diabetes mellitus Dyslipidemia History of substance abuse Hypotestosteronism Osteoarthritis of right hand Pancreatitis Family History Father Cancer Mother Cancer Diabetes Surgical History History of surgery Social History Household Members: None Housing: Apartment Do you presently have visiting nurse or other home services: No Unable to assess alcohol history related to: Refusing to respond Alcohol intake: current Alcohol intake frequency: 3 or more drinks per day Alcohol type: wine and hard liquor Patient Tobacco Use Status: Current everyday Tobacco user Tobacco use type: Cigarette Cigarette Packs Per Day: 1 Cigarettes Per Day: 20.0 Substance Use Type: Marijuana service: No Current occupational status: unemployed and disabled Current occupation: Right Handed Meds Allergies Allergy/AdvReac Type Severity Reaction Status Date / Time acamprosate Allergy Unknown redness Verified 06/11/20 08:50 and itching Docusate Sodium Allergy Unknown Migraines Verified 07/16/20 14:05 Active Medications: Current Medications Generic Name Dose Route Start Last Admin Trade Name Freq PRN Reason Stop Dose Admin Acetaminophen 650 mg 02/28/21 01:18 Acetaminophen 325 Mg Tablet PO Q6H PRN Pain, Mild (Pain Scale 1-3) Famotidine 20 mg 02/28/21 09:00 Famotidine/Pf 20 Mg/2 Ml Vial IVPUSH BID [facility] Folic Acid 1 mg 02/28/21 09:00 Folic Acid 1 Mg Tablet PO 03/03/21 08:59 DAILY [facility] Gabapentin 400 mg 02/28/21 09:00 Gabapentin 400 Mg Capsule PO TID [facility] Hydromorphone HCl 0.5 mg 02/28/21 01:18 Hydromorphone Hcl 0.5 Mg/0.5 Ml Syringe IVPUSH Q4H PRN Breakthrough Pain Dextrose/Sodium Chloride 1,000 mls @ 100 mls/hr 02/28/21 01:30 D51/2ns IVCONT .Q10H [facility] Insulin Human Lispro 0 unit 02/28/21 07:30 Insulin Lispro 100 Unit/Ml 3 Ml Vial SUBCUT QIDACHS [facility] Protocol Medication 1 each 02/28/21 09:00 No Benzodiazepines MISCELLANE DAILY [facility] Melatonin 6 mg 02/28/21 01:18 Melatonin 3 Mg Tablet PO BEDTIME PRN Insomnia Multivitamins 1 tab 02/28/21 09:00 B-Complex With Vitamin C Tablet PO DAILY [facility] Nicotine 21 mg 02/28/21 09:00 Nicotine 21 Mg Patch.Td24 TRANSDERMA DAILY [facility] Pharmacy Consult 1 each 02/27/21 21:29 Consult Rx Perform Med Rec MISCELLANE ONCE PRN Consult order Pharmacy Consult 1 each 02/27/21 23:46 Consult Rx Etoh Phenob Dosing MISCELLANE 02/27/21 23:47 ONCE ONE Protocol Phenobarbital Sodium 153 mg 02/28/21 03:30 Phenobarbital Sodium 130 Mg/Ml Vial IM 02/28/21 06:31 Q3H [facility] Senna 17.2 mg 02/28/21 01:18 Sennosides 8.6 Mg Tablet PO BEDTIME PRN Constipation Sodium Chloride 3 ml 02/28/21 08:00 0.9 % Sodium Chloride Flush 3 Ml Syringe IVFLUSH QSHIFT [facility] Thiamine HCl 100 mg 02/28/21 09:00 Thiamine Hcl 100 Mg Tablet PO 03/03/21 08:59 DAILY [facility] Home Medications Medication Instructions Recorded Confirmed Last Taken Type Lantus Solostar U-100 Insulin 10 unit SUBCUT BEDTIME 02/27/21 02/27/21 Unknown History gabapentin 1 cap PO TID 02/27/21 02/27/21 Unknown History Physical Exam Vital Signs and Narrative: Vital Signs: Last Vital Signs Temp 98.4 F 02/28/21 00:41 Pulse 84 02/28/21 00:41 Resp 16 02/28/21 00:41 BP 100/62 02/28/21 00:41 Pulse Ox 98 02/28/21 00:41 Body Mass Index 25.0 Gen: Appears be in no acute distress; lying in the bed comfortably; has a cane next to him; thin built HEENT: NCAT, Dry mucosa. Pulmonary: Vesicular breath sounds, fair air entry CVS: Normal S1-S2 Abdomen: BS+, Soft, mildly tender diffusely; no guarding no rigidity Extremities: Warm well perfused Neuro: Alert and awake. Results Labs CBC and Chem 7: 03/04/21 05:38 03/04/21 05:38 Labs: Laboratory Results - last 24 hr 02/27/21 02/27/21 02/27/21 20:47 22:14 22:16 MCV MCH MCHC RDW Plt Count MPV Immature Gran % (Auto) Neut % (Auto) Lymph % (Auto) [place] % (Auto) Eos % (Auto) Baso % (Auto) Lymph # (Auto) [place] # (Auto) Eos # (Auto) Baso # (Auto) Abs Immat Gran (auto) Absolute Neuts (auto) Absolute Nucleated RBC Nucleated RBC % (auto) VBG pH VBG pCO2 VBG pO2 VBG HCO3 VBG O2 Saturation VBG Base Excess Anion Gap Estim Creat Clear Calc Estimated GFR POC Glucose 496 H* Random Glucose Lactic Acid 8.9 H* Lactic Acid Fup @ 2Hr Calcium Magnesium Total Bilirubin Direct Bilirubin AST ALT Alkaline Phosphatase Lactate Dehydrogenase Troponin I High Sens Total Protein Albumin Lipase Urine Color Urine Appearance Urine pH Ur Specific [place] Urine Protein Urine Glucose (UA) Urine Ketones Urine Blood Urine Nitrite Ur Leukocyte Esterase Urine RBC Urine WBC Ur Squamous Epith Cells Urine Bacteria Ethyl Alcohol < 10 Acetone, Qual COVID-19 ([facility]) COVID-19 [employer] 02/27/21 02/27/21 02/27/21 22:16 22:17 22:17 MCV 85.7 MCH 30.9 MCHC 36.1 H RDW 14.7 Plt Count 50 L D MPV 9.1 L Immature Gran % (Auto) 0.2 Neut % (Auto) 83.5 H Lymph % (Auto) 7.9 L [place] % (Auto) 8.2 Eos % (Auto) 0.0 Baso % (Auto) 0.2 Lymph # (Auto) 0.5 L [place] # (Auto) 0.5 Eos # (Auto) 0.0 Baso # (Auto) 0.0 Abs Immat Gran (auto) 0.01 Absolute Neuts (auto) 5.0 Absolute Nucleated RBC 0.000 Nucleated RBC % (auto) 0.0 VBG pH VBG pCO2 VBG pO2 VBG HCO3 VBG O2 Saturation VBG Base Excess Anion Gap 29 H Estim Creat Clear Calc 52.3 Estimated GFR 53 POC Glucose Random Glucose 315 H D Lactic Acid Lactic Acid Fup @ 2Hr Calcium 8.5 Magnesium 1.5 L Total Bilirubin 1.2 H Direct Bilirubin 0.6 H AST 17 ALT 9 Alkaline Phosphatase 124 H D Lactate Dehydrogenase 142 Troponin I High Sens < 3.5 Total Protein 7.1 Albumin 3.9 Lipase 32 Urine Color Urine Appearance Urine pH Ur Specific [place] Urine Protein Urine Glucose (UA) Urine Ketones Urine Blood Urine Nitrite Ur Leukocyte Esterase Urine RBC Urine WBC Ur Squamous Epith Cells Urine Bacteria Ethyl Alcohol Acetone, Qual Moderate H COVID-19 ([facility]) COVID-19 [employer] 02/27/21 02/27/21 02/27/21 22:26 22:51 23:37 MCV MCH MCHC RDW Plt Count MPV Immature Gran % (Auto) Neut % (Auto) Lymph % (Auto) [place] % (Auto) Eos % (Auto) Baso % (Auto) Lymph # (Auto) [place] # (Auto) Eos # (Auto) Baso # (Auto) Abs Immat Gran (auto) Absolute Neuts (auto) Absolute Nucleated RBC Nucleated RBC % (auto) VBG pH 7.46 H VBG pCO2 29 VBG pO2 188 VBG HCO3 21 L VBG O2 Saturation 100.0 VBG Base Excess -1.1 Anion Gap Estim Creat Clear Calc Estimated GFR POC Glucose 284 H Random Glucose Lactic Acid Lactic Acid Fup @ 2Hr Calcium Magnesium Total Bilirubin Direct Bilirubin AST ALT Alkaline Phosphatase Lactate Dehydrogenase Troponin I High Sens Total Protein Albumin Lipase Urine Color Urine Appearance Urine pH Ur Specific [place] Urine Protein Urine Glucose (UA) Urine Ketones Urine Blood Urine Nitrite Ur Leukocyte Esterase Urine RBC Urine WBC Ur Squamous Epith Cells Urine Bacteria Ethyl Alcohol Acetone, Qual COVID-19 ([facility]) Negative COVID-19 Clin Com See Note 02/27/21 02/28/21 02/28/21 23:37 00:29 00:29 MCV MCH MCHC RDW Plt Count MPV Immature Gran % (Auto) Neut % (Auto) Lymph % (Auto) [place] % (Auto) Eos % (Auto) Baso % (Auto) Lymph # (Auto) [place] # (Auto) Eos # (Auto) Baso # (Auto) Abs Immat Gran (auto) Absolute Neuts (auto) Absolute Nucleated RBC Nucleated RBC % (auto) VBG pH VBG pCO2 VBG pO2 VBG HCO3 VBG O2 Saturation VBG Base Excess Anion Gap 20 Estim Creat Clear Calc 67.0 Estimated GFR > 60 POC Glucose Random Glucose 297 H Lactic Acid Lactic Acid Fup @ 2Hr 5.2 H* Calcium 7.8 L D Magnesium Total Bilirubin Direct Bilirubin AST ALT Alkaline Phosphatase Lactate Dehydrogenase Troponin I High Sens Total Protein Albumin Lipase Urine Color YELLOW Urine Appearance CLEAR Urine pH 6.0 Ur Specific [place] 1.025 Urine Protein NEG Urine Glucose (UA) >=1000 H Urine Ketones >=80 Urine Blood TRACE Urine Nitrite NEG Ur Leukocyte Esterase NEG Urine RBC 1-4 Urine WBC 0-2 Ur Squamous Epith Cells TRACE Urine Bacteria TRACE Ethyl Alcohol Acetone, Qual COVID-19 ([facility]) COVID-19 Clin Com Imaging Radiologist's Impressions: Impressions Abdomen/Pelvis CT 02/27/21 21:29 IMPRESSION: 1. Redemonstration of pancreatic pseudocyst. Diminishing edema around the pseudocyst since prior CAT scan February 09, 2021. Calcifications in the pancreas from chronic pancreatitis. 2. No acute abnormality of bowel. Assessment and Plan (1) Alcohol abuse: 60-year-old male with a past medical history of diabetes, alcohol abuse, tobacco dependence, thrombocytopenia, pancreatic pseudocyst presented to the hospital with a chief complaint of nausea vomiting and abdominal pain. Nausea vomiting /abdominal pain: Lipase is normal limits: CT abdomen showed pseudocyst. Pain control. Pepcid IV b.i.d.. Clear liquid diet as tolerated. Alcohol abuse: Patient on phenobarb protocol. Thiamine, folate: Multivitamins. Lactic acidosis/ alcoholic ketoacidosis: Improving. Continue IV fluids. History of brain aneurysm: Patient does report intermittent headaches. Denies any blurry visions or focal weakness. Will obtain CT head History of thrombocytopenia: Patient currently level is 50. patient had less than numbers before. Will continue to monitor. denies any signs of bleeding DVT prophylaxis: SCD boots Code status: Full code Quality Stroke Does the patient have a stroke diagnosis?: No VTE Prior VTE?: No VTE Risk Level:: Medical - moderate - high VTE Device Contraindication: N/A - Device Ordered VTE Drug Contraindication: Treatment Not Indicated
[2021-02-28] MEDS: Thiamine HCL 200 MG/2 ML VIAL 500 MG IVPUSH (01:29)
[2021-02-28] MEDS: Dextrose 5 % and 0.45 % NaCl 1,000 ML 100 ML IVCONT (01:34)
--- NOTE | 2021-02-28 01:59 | PC.NURSE ---
pt off to CT
--- NOTE | 2021-02-28 02:08 | PC.NURSE ---
pt back from CT
--- NOTE | 2021-02-28 02:08 | PC.NURSE ---
nurse to nurse report given to Tanika TORRES
[2021-02-28] MEDS: HYDROmorphone HCl 0.5 MG/0.5 ML SYRINGE IVPUSH ×4 (02:14→21:37)
[2021-02-28 02:32] LABS: Reflex Lactate? 2 Y
[2021-02-28 03:05] LABS: MANUAL DIFF FLAG NO
[2021-02-28 03:14] LABS: Basophils Percent Auto 0.2 % (0-2); Hematocrit 31.8 % (42-52); Hemoglobin 11.4 g/dl (14.0-18.0); Imm Gran Abs Auto 0.02 X10*3/uL (0.00-0.03); Imm Gran Pct Auto 0.4 % (0.0-0.4); Lymphocytes Percent Auto 19.5 % (20-40); Mean Corpuscular HGB Conc 35.8 g/dl (31.0-36.0); Mean Corpuscular Hemoglobin 31.1 pg (27.0-33.0); Mean Corpuscular Volume 86.9 fL (80-98); Mean Platelet Volume 9.5 fL (9.4-12.4); Monocytes Absolute Auto 0.5 X10*3/uL (0.1-1.2); Monocytes Percent Auto 8.6 % (2-11); Neutrophils Absolute Auto 3.8 X10*3/uL (2.0-8.3); Neutrophils Percent Auto 71.3 % (45-73); Platelet Count 40 X10*3/uL (160-400); Red Blood Count 3.66 X10*6/uL (4.60-5.80); Red Cell Distribution Width 14.8 % (11.0-16.0); White Blood Count 5.3 X10*3/uL (4.8-10.8)
[2021-02-28] MEDS: PHENobarbitaL sodium 130 MG/ML VIAL 153 MG IM ×2 (03:29→06:46)
[2021-02-28 03:56] LABS: ~Lactic Acid-LAB USE ONLY 2.2 mmol/L (0.5-2.0)
[2021-02-28 03:56] LABS: Glucose, Whole Blood 368 mg/dL (60-115)
[2021-02-28 03:57] LABS: Anion Gap 19 (12-20); Blood Urea Nitrogen 11 mg/dL (9-16); Calcium 7.9 mg/dL (8.4-10.2); Carbon Dioxide 24 mmol/L (22-29); Chloride 93 mmol/L (96-108); Creatinine Clr Calc Pharmacy 66.4; Estimated Glomerular Filt Rate > 60; Glucose Random 361 mg/dL (60-115); Potassium 4.4 mmol/L (3.3-5.1); Sodium 132 mmol/L (135-145)
[2021-02-28] MEDS: Insulin Lispro 100 UNIT/ML 3 ML VIAL SUBCUT ×5 (03:57→20:33)
--- NOTE | 2021-02-28 04:46 | PC.NURSE ---
pt glucose lab draw at 0.50 was critical 361. MD notified, orders to give sliding scale 10 units.
[2021-02-28 07:05] LABS: Glucose, Whole Blood 231 mg/dL (60-115)
[2021-02-28] MEDS: Thiamine HCL 100 MG TABLET PO (08:46)
[2021-02-28] MEDS: Famotidine/PF 20 MG/2 ML VIAL IVPUSH (08:46)
[2021-02-28] MEDS: Gabapentin 400 MG CAPSULE PO ×3 (08:46→20:33)
[2021-02-28] MEDS: Folic Acid 1 MG TABLET PO (08:46)
[2021-02-28 09:28] LABS: Alanine Aminotransferase 9 U/L (0-40); Albumin Level 3.5 g/dL (3.5-5.0); Alkaline Phosphatase 105 U/L (39-117); Aspartate Amino Transferase 20 U/L (5-37); Bilirubin Direct 0.4 mg/dL (0.0-0.5); Bilirubin Total 0.7 mg/dL (0.0-1.0); Magnesium 1.7 mg/dL (1.6-2.6); Total Protein 6.3 g/dL (6.5-8.0)
[2021-02-28 10:57] LABS: Glucose, Whole Blood 210 mg/dL (60-115)
--- NOTE | 2021-02-28 11:04 | PM.EVENT ---
Event Note Date of Service: 02/28/21 Event Note: Brief Day Team Note S Pt seen and examined Feels abdominal pain improved, but feels a bit nauseous O vital - last documented gen - NAD CVS - s1s2 Lungs - clear Abd - soft nt Neuro - non-focal, mild tremor at finger tips A/P 60 yo M with a a hitory of alcohol abuse and dependence and multiple alcohol related medical issues admitted for multiple issues 1. Alcohol dependence and withdrawal phenobarb monitor lytes and replete as needed mvi, thiamin, folate cessation has been strongly encouraged, 2. uncontrolled DM due to non-compliance unclear what he is truly taking at home continue sliding scale, add lantus 10 units bed time 3. Probable alcohol gastritis change iv h2 becky to oral ppi h/h stable 4. 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 At this time, he tells me is isnt interested in repair.
[2021-02-28] MEDS: Omeprazole 20 MG CAPSULE.DR PO (11:31)
--- NOTE | 2021-02-28 11:39 | MHC.CM.PN ---
CM MET WITH PT WHO REPORTS HE LIVES ALONE AND IS INDEPENDENT WITH CARE. PT REPORTS HE USES A CANE FOR MOBILITY AND HAS A CPAP MACHINE. PT REPORTS HE HAS BEEN TO DETOX AND GROUP HOME HOUSES AND HE IS NOT INTERESTED IN EITHER. PT REPORTS HE DID TRY VIVITROL ONCE ABOUT 4 YEARS AGO AND MAY BE INTERESTED IN TRYING THAT AGAIN. PT REPORTS HE IS STARTING TO FORGET THINGS AN IS WORRIED HE IS GETTING WET BRAIN . PT STATES IN THE PAST 5 YEARS HE HAS HAD MANY HEALTH ISSUES AND HE KNOWS HE HAS TO STOP DRINKING. PT INITIALLY INDICATES HE IS NOT INTERESTED IN STR IF RECOMMENDED BUT LATER SAYS HE WILL TRY ANYTHING THAT WILL HELP. PT IS ALSO INTERESTED IN [facility] IF HE DISCHARGES HOME. PT REPORTS HE HAS HAD THEM IN THE PAST BUT THEY DISCHARGED HIM BECAUSE OF HIS DRINKING. CURRENT DC PLAN IS HOME WITH CARE TEAM REFERRALS, POSSIBLY WITH [facility] VS STR. TRANSPORT WILL BE DETERMINED BY DISPOSITION., FAMILY VS CHAIR VAN
--- NOTE | 2021-02-28 12:02 | MHC.CLN ---
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
[2021-02-28] MEDS: 0.9 % Sodium Chloride Flush 3 ML SYRINGE IVFLUSH ×2 (15:17→20:34)
[2021-02-28 16:32] LABS: Glucose, Whole Blood 261 mg/dL (60-115)
[2021-02-28] MEDS: Insulin Glargine,Hum.rec.anlog 100 UNIT/ML 10 ML VIAL 10 UNIT SUBCUT (20:33)
[2021-02-28] MEDS: PHENobarbitaL 15 MG TABLET 45 MG PO (20:33)
[2021-02-28 20:35] LABS: Glucose, Whole Blood 218 mg/dL (60-115)
[2021-03-01] MEDS: Metoclopramide HCl 10 MG/2 ML VIAL 5 MG IVPUSH (00:28)
[2021-03-01 04:00] VITALS: BP 98/66; PULSE 70; RESP 18; TEMP 36.8; O2SAT 94
[2021-03-01] MEDS: Omeprazole 20 MG CAPSULE.DR PO ×2 (06:02→17:25)
[2021-03-01] MEDS: Acetaminophen 325 MG TABLET 650 MG PO ×2 (06:06→18:07)
[2021-03-01 07:14] LABS: Glucose, Whole Blood 239 mg/dL (60-115)
[2021-03-01 07:26] VITALS: BP 103/76; PULSE 78; RESP 16; TEMP 36.4; O2SAT 99
[2021-03-01] MEDS: PHENobarbitaL 15 MG TABLET 45 MG PO ×2 (08:35→20:56)
[2021-03-01] MEDS: Insulin Lispro 100 UNIT/ML 3 ML VIAL SUBCUT ×4 (08:35→20:56)
[2021-03-01] MEDS: Folic Acid 1 MG TABLET PO (08:36)
[2021-03-01] MEDS: Thiamine HCL 100 MG TABLET PO (08:36)
[2021-03-01] MEDS: 0.9 % Sodium Chloride Flush 3 ML SYRINGE IVFLUSH ×3 (08:36→20:57)
[2021-03-01] MEDS: Gabapentin 400 MG CAPSULE PO ×3 (08:36→20:56)
[2021-03-01] MEDS: Nicotine 21 MG PATCH.TD24 TRANSDERMA (08:36)
--- NOTE | 2021-03-01 11:15 | HO.PM.IMPN ---
Subjective Subjective Date of Service: 03/01/21 Interval History: Patient feels better, wants to eat regular diet abdominal pain has improved, has chronic achiness of feet with difficulty in ambulation, complain of falls,has history of neuropathy. Events from last night noted patient was trying to open the bathroom door when he fell hitting the side of rt head, right shoulder, no loss of consciousness, no nausea, no vomiting, no confusion, no change in his chronic headaches. ROS General no fever, no chills CVS no chest pain, no palpitation GI no nausea, no vomiting, epigastric pain is improving Physical Exam Vital Signs: Vital Signs: Last Vital Signs Temp 97.6 F 03/01/21 07:26 Pulse 78 03/01/21 07:26 Resp 16 03/01/21 07:26 BP 103/76 03/01/21 07:26 Pulse Ox 99 03/01/21 07:26 Body Mass Index 25.0 General resting comfortably in no acute distress. Neck supple ,no JVD. CVS regular rate rhythm, Respiratory lungs clear to auscultation, no respiratory distress Gastrointestinal abdomen soft, nontender, bowel sounds audible,no guarding , no rigidity. Extremities no edema. Neuro nonfocal Skin no rash Objective Data Current Medications Generic Name Dose Route Start Last Admin Trade Name Freq PRN Reason Stop Dose Admin Acetaminophen 650 mg 02/28/21 01:18 03/01/21 06:06 Acetaminophen 325 Mg Tablet PO 650 mg Q6H PRN Administration Pain, Mild (Pain Scale 1-3) Folic Acid 1 mg 02/28/21 09:00 03/01/21 08:36 Folic Acid 1 Mg Tablet PO 03/03/21 08:59 1 mg DAILY [facility] Administration Gabapentin 400 mg 02/28/21 09:00 03/01/21 08:36 Gabapentin 400 Mg Capsule PO 400 mg TID [facility] Administration Insulin Glargine 10 unit 02/28/21 21:00 02/28/21 20:33 Insulin Glargine,Hum.Rec.Anlog 100 Unit/Ml 10 Ml Vial SUBCUT 10 unit BEDTIME [facility] Administration Insulin Human Lispro 0 unit 02/28/21 07:30 03/01/21 08:35 Insulin Lispro 100 Unit/Ml 3 Ml Vial SUBCUT 4 unit QIDACHS [facility] Administration Protocol Medication 1 each 02/28/21 09:00 No Benzodiazepines MISCELLANE DAILY [facility] Melatonin 6 mg 02/28/21 01:18 Melatonin 3 Mg Tablet PO BEDTIME PRN Insomnia Multivitamins 1 tab 02/28/21 09:00 03/01/21 08:35 B-Complex With Vitamin C Tablet PO 1 tab DAILY [facility] Administration Nicotine 21 mg 02/28/21 09:00 03/01/21 08:36 Nicotine 21 Mg Patch.Td24 TRANSDERMA 21 mg DAILY [facility] Administration Omeprazole 20 mg 03/01/21 16:30 Omeprazole 20 Mg Capsule. PO BID@7614,3263 [facility] Pharmacy Consult 1 each 02/27/21 21:29 Consult Rx Perform Med Rec MISCELLANE ONCE PRN Consult order Phenobarbital 45 mg 02/28/21 21:00 03/01/21 08:35 Phenobarbital 15 Mg Tablet PO 03/02/21 09:01 45 mg BID [facility] Administration Protocol Phenobarbital 15 mg 03/02/21 21:00 Phenobarbital 15 Mg Tablet PO 03/04/21 09:01 BID [facility] Protocol Phenobarbital 15 mg 03/05/21 09:00 Phenobarbital 15 Mg Tablet PO 03/06/21 09:01 DAILY [facility] Protocol Senna 17.2 mg 02/28/21 01:18 Sennosides 8.6 Mg Tablet PO BEDTIME PRN Constipation Sodium Chloride 3 ml 02/28/21 08:00 03/01/21 08:36 0.9 % Sodium Chloride Flush 3 Ml Syringe IVFLUSH 3 ml QSHIFT [facility] Administration Thiamine HCl 100 mg 02/28/21 09:00 03/01/21 08:36 Thiamine Hcl 100 Mg Tablet PO 03/03/21 08:59 100 mg DAILY [facility] Administration Labs CBC & Chem 7: 02/28/21 02:58 02/28/21 02:58 Labs: Laboratory Results - last 24 hr 02/28/21 02/28/21 03/01/21 16:27 20:24 07:07 POC Glucose 261 H 218 H 239 H Quality Stroke Does the patient have a stroke diagnosis?: No VTE Prior VTE?: No VTE Risk Level:: Medical - moderate - high VTE Device Contraindication: N/A - Device Ordered VTE Drug Contraindication: Treatment Not Indicated Assessment and Plan (1) Alcohol abuse: Status: Acute (2) Acidosis, lactic: Status: Acute (3) Acute hyperglycemia: Status: Acute (4) Alcohol dependence with withdrawal: Status: Acute (5) Thrombocytopenia: Status: Acute (6) Hypomagnesemia: Status: Acute (7) Diabetes mellitus: Status: Acute (8) Abdominal pain: Status: Acute Assessment and Plan: 60 yo M with a a hitory of alcohol abuse and dependence and multiple alcohol related medical issues admitted for multiple issues 1. Alcohol dependence and withdrawal Patient has been drinking heavily since father's Day, continue phenobarb, mvi, thiamin, folate cessation has been strongly encouraged, will obtain care team eval 2. uncontrolled DM Hyperglycemia due to non-compliance, will adjust adjust insulin sliding scale since blood sugar noted to be elevated continue sliding scale, lantus 10 units bed time 3. Abdominal pain Likely due to alcohol gastritis, since was drinking heavily noted to have nausea followed by multiple episodes of vomiting, will advance diet, change Prilosec to twice daily Follow hematocrit, strongly advised to abstain from alcohol,if noted to have drop in hematocrit will obtain GI eval, normal lipase has prior history of pancreatitis 4. 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 At this time, he isnt interested in repair. 6. Unsteady gait and fall, patient fell last night have normal examination no head injuries noted, likely due to neuropathy, will check folic acid and B12 7. Prolonged QTC likely due to electrolyte abnormality will replace magnesium, follow labs and repeat EKG
[2021-03-01 11:27] LABS: Glucose, Whole Blood 342 mg/dL (60-115)
[2021-03-01 11:33] VITALS: BP 101/74; PULSE 92; RESP 16; TEMP 36.4; O2SAT 96
--- NOTE | 2021-03-01 14:42 | MHC.CARE ---
CARE team consulted for pt due to concern about ETOH. Per records pt has had acute medical issues as a result of his chronic ETOH dep. CARE met w pt in his room on [facility] today. Pt offered t/w a chair and was eager to engage in discussion. Pt described his longstanding history of ETOH dep and admits that his use is problematic. Pt expressed insight into how his use has caused him considerable medical issues with hospitalizations. Pt stated he does wish to reduce or stop his use but feels he cannot maintain it on his own. Pt stated his longest periods of abstinence of ETOH was while in a program at [facility]. Pts family has hx of [place] by his report also. He lives in an apartment in [facility] in his Brother's house. Pt stated he attempted to step down from [facility] to a sober house but decided to leave the program based on not being able to smoke cigarettes. Pt stated he is not sure he is open to the idea of a program at this time. Pt stated he heard of a program in [place] that comes to your house . He used to have [facility] for his medical issues however this was discontinued due to his ETOH use. Pt expressed frustration at the [facility] terminating his services despite his ETOH on board at the time of the services. Pt expressed interest (per chart and w t/w) about Vivitrol. T/w explained the benefit from coordination with [facility] here at [facility] for this referral given his hx and rule out medical acuity. T/w suggested that medical floor provider and nsg reach out to the [facility] on Wednesday for this to happen while pt is here for continuity. Pt accepted the resources given by CARE team for further consideration once he has clarity on his medical issues.
[2021-03-01 15:10] VITALS: BP 113/76; PULSE 88; RESP 17; TEMP 36.7; O2SAT 96
[2021-03-01 16:04] LABS: Glucose, Whole Blood 287 mg/dL (60-115)
[2021-03-01] MEDS: Magnesium Oxide 400 MG TABLET PO (17:24)
[2021-03-01 19:25] VITALS: BP 94/64; PULSE 86; RESP 16; TEMP 37.4; O2SAT 97
[2021-03-01 20:35] LABS: Glucose, Whole Blood 237 mg/dL (60-115)
[2021-03-01] MEDS: Insulin Glargine,Hum.rec.anlog 100 UNIT/ML 10 ML VIAL 10 UNIT SUBCUT (20:56)
[2021-03-01 23:11] VITALS: BP 93/62; PULSE 78; RESP 18; TEMP 36.1; O2SAT 97
[2021-03-02] MEDS: Acetaminophen 325 MG TABLET 650 MG PO ×2 (01:01→20:40)
[2021-03-02 03:02] VITALS: BP 111/69; PULSE 88; RESP 18; TEMP 35.8; O2SAT 98
[2021-03-02] MEDS: Omeprazole 20 MG CAPSULE.DR PO ×2 (05:57→16:32)
[2021-03-02 07:10] LABS: Hematocrit 31.6 % (42-52); Mean Corpuscular HGB Conc 34.8 g/dl (31.0-36.0); Mean Corpuscular Hemoglobin 30.5 pg (27.0-33.0); Mean Corpuscular Volume 87.5 fL (80-98); Mean Platelet Volume 9.4 fL (9.4-12.4); Red Blood Count 3.61 X10*6/uL (4.60-5.80); Red Cell Distribution Width 14.5 % (11.0-16.0); White Blood Count 2.8 X10*3/uL (4.8-10.8)
[2021-03-02 07:14] LABS: Glucose, Whole Blood 246 mg/dL (60-115)
[2021-03-02 07:36] LABS: Platelet Count 33 X10*3/uL (160-400)
[2021-03-02 07:44] VITALS: BP 103/71; PULSE 62; RESP 19; TEMP 36.6; O2SAT 100
[2021-03-02 07:51] LABS: Anion Gap 13 (12-20); Blood Urea Nitrogen 9 mg/dL (9-16); Calcium 8.9 mg/dL (8.4-10.2); Carbon Dioxide 31 mmol/L (22-29); Chloride 96 mmol/L (96-108); Creatinine Clr Calc Pharmacy 84.4; Estimated Glomerular Filt Rate > 60; Glucose Random 331 mg/dL (60-115); Magnesium 1.4 mg/dL (1.6-2.6); Potassium 3.5 mmol/L (3.3-5.1); Sodium 136 mmol/L (135-145)
--- NOTE | 2021-03-02 08:00 | ECG_ITS ---
Test Reason : QT INTERVAL Blood Pressure : / mmHG Vent. Rate : 080 BPM Atrial Rate : 080 BPM P-R Int : 168 ms QRS Dur : 078 ms QT Int : 374 ms P-R-T Axes : 024 027 044 degrees QTc Int : 431 ms Normal sinus rhythm Normal ECG When compared to the previous EKG of No significant changes seen Referred By: Vivek Houston Electronically Signed By:Paolo Montaño
[2021-03-02] MEDS: Insulin Lispro 100 UNIT/ML 3 ML VIAL SUBCUT ×4 (08:28→20:53)
[2021-03-02] MEDS: Thiamine HCL 100 MG TABLET PO (08:29)
[2021-03-02] MEDS: Magnesium Oxide 400 MG TABLET PO ×2 (08:29→16:32)
[2021-03-02] MEDS: PHENobarbitaL 15 MG TABLET 45 MG PO (08:29)
[2021-03-02] MEDS: Folic Acid 1 MG TABLET PO (08:29)
[2021-03-02] MEDS: Gabapentin 400 MG CAPSULE PO ×3 (08:30→20:44)
[2021-03-02] MEDS: 0.9 % Sodium Chloride Flush 3 ML SYRINGE IVFLUSH ×3 (08:30→23:41)
[2021-03-02] MEDS: Magnesium Sulfate/H2O 2 GM/50 ML PIGGYBACK IV (08:30)
[2021-03-02] MEDS: Nicotine 21 MG PATCH.TD24 TRANSDERMA (08:44)
[2021-03-02 11:24] LABS: Glucose, Whole Blood 343 mg/dL (60-115)
[2021-03-02 11:29] VITALS: BP 115/85; PULSE 78; RESP 20; TEMP 36.2; O2SAT 97
[2021-03-02 14:58] VITALS: BP 110/85; PULSE 79; RESP 20; TEMP 37.4; O2SAT 97
--- NOTE | 2021-03-02 15:03 | P.PNIM_ITS ---
Subjective Subjective Date of Service: 03/02/21 Interval History: Denies abdominal pain, no other acute issues overnight, frustrated due to high fall risk wants to ambulate, had a fall 02/28/2021 in the bathroom while trying to open the door, as history of chronic neuropathy and fall. ROS General no fever, no chills CVS no chest pain, no palpitation GI no nausea, no vomiting, no abdominal pain Skin no rash Physical Exam Vital Signs: Vital Signs: Last Vital Signs Temp 99.3 F 03/02/21 14:58 Pulse 79 03/02/21 14:58 Resp 20 03/02/21 14:58 BP 110/85 03/02/21 14:58 Pulse Ox 97 03/02/21 14:58 Body Mass Index 25.0 General resting comfortably,no acute distress. Neck supple ,no JVD. CVS regular rate rhythm, Respiratory lungs clear to auscultation, no respiratory distress Gastrointestinal abdomen soft, nontender, bowel sounds audible,no guarding , no rigidity. Extremities no edema. Neuro nonfocal Skin no rash Objective Data Current Medications Generic Name Dose Route Start Last Admin Trade Name Freq PRN Reason Stop Dose Admin Acetaminophen 650 mg 02/28/21 01:18 03/02/21 01:01 Acetaminophen 325 Mg Tablet PO 650 mg Q6H PRN Administration Pain, Mild (Pain Scale 1-3) Folic Acid 1 mg 02/28/21 09:00 03/02/21 08:29 Folic Acid 1 Mg Tablet PO 03/03/21 08:59 1 mg DAILY JOSE Administration Gabapentin 400 mg 02/28/21 09:00 03/02/21 08:30 Gabapentin 400 Mg Capsule PO 400 mg TID JOSE Administration Insulin Glargine 10 unit 02/28/21 21:00 03/01/21 20:56 Insulin Glargine,Hum.Rec.Anlog 100 Unit/Ml 10 Ml Vial SUBCUT 10 unit BEDTIME JOSE Administration Insulin Human Lispro 0 unit 02/28/21 07:30 03/02/21 11:32 Insulin Lispro 100 Unit/Ml 3 Ml Vial SUBCUT 10 unit QIDACHS JOSE Administration Protocol Magnesium Oxide 400 mg 03/01/21 17:30 03/02/21 08:29 Magnesium Oxide 400 Mg Tablet PO 400 mg BIDPC JOSE Administration Medication 1 each 02/28/21 09:00 No Benzodiazepines MISCELLANE DAILY [facility] Melatonin 6 mg 02/28/21 01:18 Melatonin 3 Mg Tablet PO BEDTIME PRN Insomnia Multivitamins 1 tab 02/28/21 09:00 03/02/21 08:29 B-Complex With Vitamin C Tablet PO 1 tab DAILY [facility] Administration Nicotine 21 mg 02/28/21 09:00 03/02/21 08:44 Nicotine 21 Mg Patch.Td24 TRANSDERMA 21 mg DAILY JOSE Administration Nicotine Polacrilex 2 mg 03/01/21 15:15 03/02/21 11:32 Nicotine Polacrilex 2 Mg Lozenge BUCCAL 2 mg Q2H PRN Administration Nicotine Cravings Omeprazole 20 mg 03/01/21 16:30 03/02/21 05:57 Omeprazole 20 Mg Capsule. PO 20 mg BID@8775,0162 [facility] Administration Pharmacy Consult 1 each 02/27/21 21:29 Consult Rx Perform Med Rec MISCELLANE ONCE PRN Consult order Phenobarbital 15 mg 03/02/21 21:00 Phenobarbital 15 Mg Tablet PO 03/04/21 09:01 BID [facility] Protocol Phenobarbital 15 mg 03/05/21 09:00 Phenobarbital 15 Mg Tablet PO 03/06/21 09:01 DAILY [facility] Protocol Senna 17.2 mg 02/28/21 01:18 Sennosides 8.6 Mg Tablet PO BEDTIME PRN Constipation Sodium Chloride 3 ml 02/28/21 08:00 03/02/21 08:30 0.9 % Sodium Chloride Flush 3 Ml Syringe IVFLUSH 3 ml QSHIFT [facility] Administration Thiamine HCl 100 mg 02/28/21 09:00 03/02/21 08:29 Thiamine Hcl 100 Mg Tablet PO 03/03/21 08:59 100 mg DAILY [facility] Administration Labs CBC & Chem 7: 03/02/21 06:07 03/02/21 06:07 Labs: Laboratory Results - last 24 hr 03/01/21 03/01/21 03/02/21 16:01 20:31 06:07 WBC 2.8 L RBC 3.61 L Hgb 11.0 L Hct 31.6 L MCV 87.5 MCH 30.5 MCHC 34.8 RDW 14.5 Plt Count 33 L MPV 9.4 Absolute Nucleated RBC 0.000 Nucleated RBC % (auto) 0.0 Sodium Potassium Chloride Carbon Dioxide Anion Gap BUN Creatinine Estim Creat Clear Calc Estimated GFR POC Glucose 287 H 237 H Random Glucose Calcium Magnesium 03/02/21 03/02/21 03/02/21 06:07 07:04 11:13 WBC RBC Hgb Hct MCV MCH MCHC RDW Plt Count MPV Absolute Nucleated RBC Nucleated RBC % (auto) Sodium 136 Potassium 3.5 D Chloride 96 Carbon Dioxide 31 H Anion Gap 13 BUN 9 Creatinine 0.85 Estim Creat Clear Calc 84.4 Estimated GFR > 60 POC Glucose 246 H 343 H Random Glucose 331 H Calcium 8.9 D Magnesium 1.4 L* Quality Stroke Does the patient have a stroke diagnosis?: No VTE Prior VTE?: No VTE Risk Level:: Medical - moderate - high VTE Device Contraindication: N/A - Device Ordered VTE Drug Contraindication: Treatment Not Indicated Assessment and Plan (1) Abdominal pain: Status: Acute (2) Alcohol abuse: Status: Acute (3) Thrombocytopenia: Status: Acute (4) Diabetes mellitus: Status: Acute (5) Hypomagnesemia: Status: Acute (6) Prolonged QT interval: Status: Acute Assessment and Plan: 60 yo M with a a hitory of alcohol abuse and dependence and multiple alcohol related medical issues admitted for multiple issues 1. Alcohol dependence and withdrawal Patient has been drinking heavily since father's Day, continue phenobarb, mvi, thiamin, folate cessation has been strongly encouraged, await care team eval, patient wishes to go to wear program, he remains sober for 6 months since he was at [facility] detox 90 days followed by sober house Is started drinking again in last 2 months 2. Hypomagnesemia magnesium dropped to 1.4 this a.m. will replete with 2 g of magnesium and continue by mouth Mag oxide likely due to poor nutrition 2. uncontrolled DM Hyperglycemia due to non-compliance, blood sugars remain elevated, will increase dose of Lantus, adjusted insulin sliding scale continue diabetic diet 3. Abdominal pain Likely due to alcohol gastritis, since was drinking heavily noted to have nausea followed by multiple episodes of vomiting, abdominal pain resolved Continue Prilosec to twice daily, hematocrit remains stable normal lipase has prior history of pancreatitis 4. 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 At this time, he isnt interested in repair. 6. Unsteady gait and fall, likely due to diabetic neuropathy, folic acid and B12 pending, obtain PT eval 7. Prolonged QTC likely due to electrolyte abnormality will replace magnesium, follow labs and repeat EKG pending 8. Psychiatric history patient asking for Seroquel that he was using in the past, recently not using it therefore will not start antipsychotics, refer to outpatient therapy.
[2021-03-02 16:15] LABS: Glucose, Whole Blood 267 mg/dL (60-115)
[2021-03-02 20:00] VITALS: BP 123/80; PULSE 82; RESP 16; TEMP 37.3; O2SAT 98
[2021-03-02 20:36] LABS: Glucose, Whole Blood 239 mg/dL (60-115)
[2021-03-02] MEDS: PHENobarbitaL 15 MG TABLET PO (20:40)
[2021-03-02] MEDS: Insulin Glargine,Hum.rec.anlog 100 UNIT/ML 10 ML VIAL 15 UNIT SUBCUT (20:41)
[2021-03-02 23:57] VITALS: BP 136/67; PULSE 84; RESP 18; TEMP 36.8; O2SAT 96
[2021-03-03] VITALS (7 sets, daily range): BP systolic 97–135; BP diastolic 58–83; PULSE 65–86; RESP 14–24; TEMP 36.4–37.1; O2SAT 97–100
[2021-03-03] MEDS: traZODone HCL 25 MG HALFTAB PO (02:41)
--- NOTE | 2021-03-03 02:51 | PC.NURSE ---
pt refusing telesitter camera. removed after educated regarding high fall risk, ring for assist, hourly rounds. need for bed alarm to remain in place, pt verbalizes understanding. reports difficulty sleeping steady ambulation, ambulated in [place] with cane & assist of standby tolerated well. smell of cigarettes in bathroom, educated no smoking & nicorette losenge given. dr. tobias aware trazadone 25mg po given as new order and administrated as ordered. pbj sandwich & drink given. pt relinquished cigarettes, labeled & placed in pt specific bin, will continue to monitor closely
[2021-03-03 04:19] LABS: Folate 11.5 ng/mL (> or = 4.0); Vitamin B12 462 pg/mL (200-900)
[2021-03-03] MEDS: Omeprazole 20 MG CAPSULE.DR PO ×2 (05:13→17:13)
[2021-03-03 06:53] LABS: Hematocrit 27.8 % (42-52); Hemoglobin 9.7 g/dl (14.0-18.0); Mean Corpuscular HGB Conc 34.9 g/dl (31.0-36.0); Mean Corpuscular Hemoglobin 30.8 pg (27.0-33.0); Mean Corpuscular Volume 88.3 fL (80-98); Mean Platelet Volume 10.6 fL (9.4-12.4); Red Blood Count 3.15 X10*6/uL (4.60-5.80); Red Cell Distribution Width 14.6 % (11.0-16.0); White Blood Count 3.2 X10*3/uL (4.8-10.8)
[2021-03-03 07:06] LABS: Platelet Count 28 X10*3/uL (160-400)
[2021-03-03 07:19] LABS: Glucose, Whole Blood 377 mg/dL (60-115)
[2021-03-03 07:30] LABS: Anion Gap 11 (12-20); Blood Urea Nitrogen 12 mg/dL (9-16); Calcium 8.3 mg/dL (8.4-10.2); Carbon Dioxide 26 mmol/L (22-29); Chloride 99 mmol/L (96-108); Estimated Glomerular Filt Rate > 60; Glucose Random 426 mg/dL (60-115); Magnesium 1.5 mg/dL (1.6-2.6); Potassium 3.4 mmol/L (3.3-5.1); Sodium 133 mmol/L (135-145)
[2021-03-03] MEDS: Magnesium Oxide 400 MG TABLET 800 MG PO ×2 (07:53→17:13)
[2021-03-03] MEDS: Gabapentin 400 MG CAPSULE PO ×3 (07:53→21:18)
[2021-03-03] MEDS: 0.9 % Sodium Chloride Flush 3 ML SYRINGE IVFLUSH ×3 (07:54→21:26)
[2021-03-03] MEDS: Nicotine 21 MG PATCH.TD24 TRANSDERMA (07:54)
[2021-03-03] MEDS: Magnesium Sulfate/H2O 2 GM/50 ML PIGGYBACK IV (07:54)
[2021-03-03] MEDS: Insulin Lispro 100 UNIT/ML 3 ML VIAL SUBCUT ×4 (07:54→21:19)
[2021-03-03] MEDS: PHENobarbitaL 15 MG TABLET PO ×2 (07:54→21:18)
[2021-03-03 08:03] LABS: Estimated Average Glucose 212 mg/dL
[2021-03-03 11:09] LABS: Glucose, Whole Blood 185 mg/dL (60-115)
--- NOTE | 2021-03-03 13:15 | MHC.RECOVRN ---
60 year old male presented to [facility] via EMS on 02/27 due to c/o abdominal pain and vomiting, per ems pt has hx of pancreatitis and etoh use. POC 496 on arrival. Upon evaluation, pt admitted for hypomagnesemia, acidosis, lactic, acute dehydration, acute hyperglycemia, as well as alcohol withdrawal. T/w met with pt in 458 after Addiction Medicine consult was placed. Pt reports drinking 1 sleeve of 100 proof root beer vodka x 4-5 years. Pt recently had 6 months of recovery while in a Sober Living house. Pt left the house 1 month ago and has been drinking wine, 2 boxes over the course of 3 days (about 21 glasses daily). Pt reports he began drinking heavily when his Honey on 08/27/14. Pt reports hx of opiate use, last use 18 years ago. Pt had been on methadone and successfully tapered. Pt has been in [facility] treatment many times. Pt does not find AA helpful due to the amount of people, prefers 1:1. Pt had services, prior to [facility], at [facility]. Pt had a psychiatrist and weekly therapy. Pt is interested in medications for AUD. T/w educated pt, pt reports hx Campral as well as naltrexone. Pt reports receiving 1 Vivitrol injection a couple years ago. Pt was unaware that it was a monthly injection and believed it to be a one time miracle shot. Pt would like to restart Campral and naltrexone if possible. Pt aware that liver function may be a barrier to restarting naltrexone. Pt also interested in [facility], in home [facility] treatment. Pt provided with this information. Case discussed with Yanique Hall APRN.
[2021-03-03 16:20] LABS: Glucose, Whole Blood 174 mg/dL (60-115)
--- NOTE | 2021-03-03 16:23 | HO.PM.IMPN ---
Subjective Subjective Date of Service: 03/03/21 Interval History: withdrawal symptoms well-controlled no gum or GI bleeding expresses interested in MAT to support sobriety Physical Exam Vital Signs: Vital Signs: Last Vital Signs Temp 97.7 F 03/03/21 15:32 Pulse 85 03/03/21 15:32 Resp 24 H 03/03/21 15:32 BP 97/68 03/03/21 15:32 Pulse Ox 99 03/03/21 15:32 Body Mass Index 25.0 Gen: in no acute distress HEENT: sclera anicteric, moist mucus membranes Neck: supple Lungs: clear to auscultation bilaterally Heart: regular rate and rhythm, no murmurs Abd: soft, non-tender, non-distended Ext: no edema Skin: warm/well-perfused Neuro: alert and oriented x3, no focal findings Psych: appropriate affect Objective Data Current Medications Generic Name Dose Route Start Last Admin Trade Name Freq PRN Reason Stop Dose Admin Acetaminophen 650 mg 02/28/21 01:18 03/02/21 20:40 Acetaminophen 325 Mg Tablet PO 650 mg Q6H PRN Administration Pain, Mild (Pain Scale 1-3) Gabapentin 400 mg 02/28/21 09:00 03/03/21 14:03 Gabapentin 400 Mg Capsule PO 400 mg TID [facility] Administration Insulin Glargine 18 unit 03/03/21 21:00 Insulin Glargine,Hum.Rec.Anlog 100 Unit/Ml 10 Ml Vial SUBCUT BEDTIME [facility] Insulin Human Lispro 0 unit 02/28/21 07:30 03/03/21 12:08 Insulin Lispro 100 Unit/Ml 3 Ml Vial SUBCUT 5 unit QIDAS [facility] Administration Protocol Magnesium Oxide 800 mg 03/03/21 08:30 03/03/21 07:53 Magnesium Oxide 400 Mg Tablet PO 800 mg BIDPC [facility] Administration Medication 1 each 02/28/21 09:00 No Benzodiazepines MISCELLANE DAILY JOSE Melatonin 6 mg 02/28/21 01:18 Melatonin 3 Mg Tablet PO BEDTIME PRN Insomnia Multivitamins 1 tab 02/28/21 09:00 03/03/21 07:53 B-Complex With Vitamin C Tablet PO 1 tab DAILY JOSE Administration Nicotine 21 mg 02/28/21 09:00 03/03/21 07:54 Nicotine 21 Mg Patch.Td24 TRANSDERMA 21 mg DAILY JOSE Administration Nicotine Polacrilex 2 mg 03/01/21 15:15 03/03/21 14:07 Nicotine Polacrilex 2 Mg Lozenge BUCCAL 2 mg Q2H PRN Administration Nicotine Cravings Omeprazole 20 mg 03/01/21 16:30 03/03/21 05:13 Omeprazole 20 Mg Capsule. PO 20 mg BID@2612,1432 [facility] Administration Pharmacy Consult 1 each 02/27/21 21:29 Consult Rx Perform Med Rec MISCELLANE ONCE PRN Consult order Phenobarbital 15 mg 03/02/21 21:00 03/03/21 07:54 Phenobarbital 15 Mg Tablet PO 03/04/21 09:01 15 mg BID [facility] Administration Protocol Phenobarbital 15 mg 03/05/21 09:00 Phenobarbital 15 Mg Tablet PO 03/06/21 09:01 DAILY [facility] Protocol Senna 17.2 mg 02/28/21 01:18 Sennosides 8.6 Mg Tablet PO BEDTIME PRN Constipation Sodium Chloride 3 ml 02/28/21 08:00 03/03/21 07:54 0.9 % Sodium Chloride Flush 3 Ml Syringe IVFLUSH 3 ml QSHIFT [facility] Administration Labs CBC & Chem 7: 03/03/21 06:01 03/03/21 06:01 Labs: Laboratory Results - last 24 hr 03/02/21 03/02/21 03/03/21 06:07 20:20 06:01 WBC 3.2 L RBC 3.15 L Hgb 9.7 L Hct 27.8 L MCV 88.3 MCH 30.8 MCHC 34.9 RDW 14.6 Plt Count 28 L MPV 10.6 Absolute Nucleated RBC 0.000 Nucleated RBC % (auto) 0.0 Sodium Potassium Chloride Carbon Dioxide Anion Gap BUN Creatinine Estim Creat Clear Calc Estimated GFR POC Glucose 239 H Random Glucose Estimat Average Glucose Hemoglobin A1c % Calcium Magnesium Vitamin B12 462 Folate 11.5 03/03/21 03/03/21 03/03/21 06:01 06:01 07:12 WBC RBC Hgb Hct MCV MCH MCHC RDW Plt Count MPV Absolute Nucleated RBC Nucleated RBC % (auto) Sodium 133 L Potassium 3.4 Chloride 99 Carbon Dioxide 26 Anion Gap 11 L BUN 12 Creatinine 0.92 Estim Creat Clear Calc 78.0 Estimated GFR > 60 POC Glucose 377 H* Random Glucose 426 H* Estimat Average Glucose 212 Hemoglobin A1c % 9.0 Calcium 8.3 L D Magnesium 1.5 L Vitamin B12 Folate 03/03/21 03/03/21 11:00 16:12 WBC RBC Hgb Hct MCV MCH MCHC RDW Plt Count MPV Absolute Nucleated RBC Nucleated RBC % (auto) Sodium Potassium Chloride Carbon Dioxide Anion Gap BUN Creatinine Estim Creat Clear Calc Estimated GFR POC Glucose 185 H 174 H Random Glucose Estimat Average Glucose Hemoglobin A1c % Calcium Magnesium Vitamin B12 Folate Quality Stroke Does the patient have a stroke diagnosis?: No VTE Prior VTE?: No VTE Risk Level:: Medical - moderate - high VTE Device Contraindication: N/A - Device Ordered VTE Drug Contraindication: Treatment Not Indicated Assessment and Plan (1) Abdominal pain: Status: Acute (2) Alcohol abuse: Status: Acute (3) Thrombocytopenia: Status: Acute (4) Diabetes mellitus: Status: Acute (5) Hypomagnesemia: Status: Acute (6) Prolonged QT interval: Status: Acute Assessment and Plan: hospital d#4 60 yo M with history of alcohol abuse and dependence and multiple alcohol related medical issues admitted for withdrawal, hypoMg # EtOH dependence/withdrawal - heavily drinking since Father's Day. continue phenobarbital taper, vitamins - CARE team consulted, Addiction Medicine consult pending # hypoMg - replete IV, increase PO Mg oxide dose, recheck level in AM # QT prolongation - QTc normalized to 431 ms as of yesterday # DM2, A1c 9 - increase basal/bolus insulin # EtOH gastritis - bid PPI # pancytopenia - due to EtOH, monitor counts, no bleeding at this time. check FOBT. # basilar artery aneurysm, chronic - [address] brain, unchanged from 09/12/20- outpt neurosurgery evaluation # neuropathy - continue gabapentin # tobacco abuse - NRT # VTE ppx - SCDs
[2021-03-03 20:53] LABS: Glucose, Whole Blood 323 mg/dL (60-115)
[2021-03-03] MEDS: Acetaminophen 325 MG TABLET 650 MG PO (21:18)
[2021-03-03] MEDS: Insulin Glargine,Hum.rec.anlog 100 UNIT/ML 10 ML VIAL 18 UNIT SUBCUT (21:20)
[2021-03-04 04:00] VITALS: BP 99/66; PULSE 80; RESP 20; TEMP 36.6; O2SAT 98
[2021-03-04 05:55] LABS: Hematocrit 29.5 % (42-52); Hemoglobin 10.1 g/dl (14.0-18.0); Mean Corpuscular HGB Conc 34.2 g/dl (31.0-36.0); Mean Corpuscular Hemoglobin 30.2 pg (27.0-33.0); Mean Corpuscular Volume 88.3 fL (80-98); Mean Platelet Volume 10.2 fL (9.4-12.4); Red Blood Count 3.34 X10*6/uL (4.60-5.80); Red Cell Distribution Width 14.8 % (11.0-16.0); White Blood Count 3.7 X10*3/uL (4.8-10.8)
[2021-03-04 05:57] LABS: Immature Retic Fraction 23.4 % (2.3-13.4); Reticulocyte Percent 3.3 % (0.5-1.8); Reticulocytes Absolute 0.111 X10*6/uL (0.026-0.095)
[2021-03-04 06:06] LABS: Platelet Count 39 X10*3/uL (160-400)
[2021-03-04] MEDS: Omeprazole 20 MG CAPSULE.DR PO ×2 (06:13→14:43)
[2021-03-04 06:20] LABS: Prothrombin Time 11.4 SEC (9.9-13.0)
[2021-03-04 06:21] LABS: Alanine Aminotransferase 13 U/L (0-40); Albumin Level 3.2 g/dL (3.5-5.0); Alkaline Phosphatase 76 U/L (39-117); Anion Gap 11 (12-20); Aspartate Amino Transferase 26 U/L (5-37); Bilirubin Direct 0.2 mg/dL (0.0-0.5); Bilirubin Total 0.4 mg/dL (0.0-1.0); Blood Urea Nitrogen 15 mg/dL (9-16); Calcium 8.9 mg/dL (8.4-10.2); Carbon Dioxide 28 mmol/L (22-29); Chloride 103 mmol/L (96-108); Creatinine Clr Calc Pharmacy 84.4; Estimated Glomerular Filt Rate > 60; Glucose Random 245 mg/dL (60-115); Iron 30 mcg/dL (45-160); Lactate Dehydrogenase 129 U/L (118-273); Magnesium 1.6 mg/dL (1.6-2.6); Percent Iron Saturation 11 % (15-50); Potassium 3.7 mmol/L (3.3-5.1); Sodium 138 mmol/L (135-145); Total Iron Binding Capacity 264 mcg/dL (228-428); Total Protein 5.8 g/dL (6.5-8.0); Unsaturated Iron Binding 234 ug/dL
[2021-03-04 06:34] LABS: HBS Num1 0.12 mIU/mL (0-7.99); HIV AB/AG Nonreactive (Nonreactive); HIV Num 1 0.08 S/CO (0.00-0.99); ~Hepatitis B Surface Antibody NONREACTIVE (Nonreactive)
[2021-03-04 06:36] LABS: HBc Num1 0.23 S/CO (0.00-0.79); HBsAGNum1 0.17 S/CO (0.00-0.99); Hepatitis B Core Antibody Nonreactive (Nonreactive); Hepatitis B Surface Antigen Negative (Negative); ~HepC Num1 0.12 S/CO (0.00-0.79); ~Hepatitis C Antibody Nonreactive (Nonreactive)
[2021-03-04 07:09] LABS: Glucose, Whole Blood 234 mg/dL (60-115)
[2021-03-04 07:43] VITALS: BP 101/73; PULSE 76; RESP 18; TEMP 36.3; O2SAT 98
[2021-03-04] MEDS: Insulin Lispro 100 UNIT/ML 3 ML VIAL SUBCUT ×2 (08:07→11:30)
[2021-03-04] MEDS: 0.9 % Sodium Chloride Flush 3 ML SYRINGE IVFLUSH ×2 (08:07→14:43)
[2021-03-04] MEDS: PHENobarbitaL 15 MG TABLET PO (08:07)
[2021-03-04] MEDS: Gabapentin 400 MG CAPSULE PO ×2 (08:07→14:43)
[2021-03-04] MEDS: Magnesium Oxide 400 MG TABLET 800 MG PO (08:07)
[2021-03-04] MEDS: Nicotine 21 MG PATCH.TD24 TRANSDERMA (08:08)
[2021-03-04] MEDS: Ferrous Sulfate 324 MG TABLET.DR PO (09:46)
--- NOTE | 2021-03-04 10:52 | PC.NURSE ---
Patient very angry this morning due to bed alarm sounding when he attempted to get out of bed; verbally abusive to staff, refusing to be redirected to room. Patient found in stair well by security while this RN was receiving report. jail guard spoke to patient along with this RN, stating that it is unacceptable for patient to be in the stairwells. Patient verbalizes understanding, yet is constantly in hallway without supervision. Patient steady on feet, high fall risk due to alcohol withdrawal, which patient denies he is experiencing.
[2021-03-04 11:01] LABS: Glucose, Whole Blood 170 mg/dL (60-115)
--- NOTE | 2021-03-04 11:06 | HO.ADDICTCON ---
History of Present Illness Date of Service: 03/04/2021 Chief Complaint: ETOH Abuse Reason for Consult: Alcohol use disorder Requesting physician: Jacqueline Álvarez Discussed with referring provider: No Sources of Information: patient interviewed and chart reviewed HPI Narrative: Patient is a 60-year-old male with alcohol use disorder, currently medically admitted with alcohol withdrawal and hypo Mag. Consult requested as patient verbalized desire to restart medications for alcohol use disorder. Patient seen in room 458, recovery support RN present for interview. Patient awake, alert, pleasant and engaged in interview. Patient reports he has struggled with several types of substance addictions, but finds abstaining from alcohol the most challenging. He reports history of several psychiatric and substance use treatment admissions over many years. He reports history of naltrexone and Campral. Denies any current engagement in behavioral health treatment or recovery supports. Review of Systems Constitutional: Reports as per HPI and Reports no additional constitutional complaints Diagnostics Vital Signs (24Hr): Vital Signs - 24 hr 03/03/21 11:30 03/03/21 15:32 03/03/21 20:00 Temperature 97.5 F 97.7 F 98.4 F Pulse Rate 86 85 76 Respiratory Rate 18 24 H 14 Blood Pressure 120/83 97/68 108/71 Pulse Oximetry 100 99 97 03/03/21 23:17 03/04/21 04:00 03/04/21 07:43 Temperature 98.7 F 98 F 97.4 F Pulse Rate 65 80 76 Respiratory Rate 18 20 18 Blood Pressure 135/82 99/66 101/73 Pulse Oximetry 98 98 98 Body Mass Index 25.0 Labs Results: 03/04/21 05:38 03/04/21 05:38 Labs: Laboratory Results - last 48 hr 03/02/21 03/02/21 03/02/21 06:07 11:13 16:10 WBC RBC Hgb Hct MCV MCH MCHC RDW Plt Count MPV Absolute Nucleated RBC Nucleated RBC % (auto) Absolute Retic Percent Retic Immature Retic Fraction Retic Hgb Equivalent PT INR Sodium Potassium Chloride Carbon Dioxide Anion Gap BUN Creatinine Estim Creat Clear Calc Estimated GFR POC Glucose 343 H 267 H Random Glucose Estimat Average Glucose Hemoglobin A1c % Calcium Magnesium Iron TIBC % Saturation Unsat Iron Binding Total Bilirubin Direct Bilirubin AST ALT Alkaline Phosphatase Lactate Dehydrogenase Total Protein Albumin Vitamin B12 462 Folate 11.5 Hep Bs Antigen Hep Bs Antibody Hep B Core Total Ab Hepatitis C Ab (EIA) HIV 1&2 Ab/P24 Ag 4thGn 03/02/21 03/03/21 03/03/21 20:20 06:01 06:01 WBC 3.2 L RBC 3.15 L Hgb 9.7 L Hct 27.8 L MCV 88.3 MCH 30.8 MCHC 34.9 RDW 14.6 Plt Count 28 L MPV 10.6 Absolute Nucleated RBC 0.000 Nucleated RBC % (auto) 0.0 Absolute Retic Percent Retic Immature Retic Fraction Retic Hgb Equivalent PT INR Sodium 133 L Potassium 3.4 Chloride 99 Carbon Dioxide 26 Anion Gap 11 L BUN 12 Creatinine 0.92 Estim Creat Clear Calc 78.0 Estimated GFR > 60 POC Glucose 239 H Random Glucose 426 H* Estimat Average Glucose Hemoglobin A1c % Calcium 8.3 L D Magnesium 1.5 L Iron TIBC % Saturation Unsat Iron Binding Total Bilirubin Direct Bilirubin AST ALT Alkaline Phosphatase Lactate Dehydrogenase Total Protein Albumin Vitamin B12 Folate Hep Bs Antigen Hep Bs Antibody Hep B Core Total Ab Hepatitis C Ab (EIA) HIV 1&2 Ab/P24 Ag 4thGn 03/03/21 03/03/21 03/03/21 06:01 07:12 11:00 WBC RBC Hgb Hct MCV MCH MCHC RDW Plt Count MPV Absolute Nucleated RBC Nucleated RBC % (auto) Absolute Retic Percent Retic Immature Retic Fraction Retic Hgb Equivalent PT INR Sodium Potassium Chloride Carbon Dioxide Anion Gap BUN Creatinine Estim Creat Clear Calc Estimated GFR POC Glucose 377 H* 185 H Random Glucose Estimat Average Glucose 212 Hemoglobin A1c % 9.0 Calcium Magnesium Iron TIBC % Saturation Unsat Iron Binding Total Bilirubin Direct Bilirubin AST ALT Alkaline Phosphatase Lactate Dehydrogenase Total Protein Albumin Vitamin B12 Folate Hep Bs Antigen Hep Bs Antibody Hep B Core Total Ab Hepatitis C Ab (EIA) HIV 1&2 Ab/P24 Ag 4thGn 03/03/21 03/03/21 03/04/21 16:12 20:46 05:38 WBC RBC Hgb Hct MCV MCH MCHC RDW Plt Count MPV Absolute Nucleated RBC Nucleated RBC % (auto) Absolute Retic Percent Retic Immature Retic Fraction Retic Hgb Equivalent PT INR Sodium Potassium Chloride Carbon Dioxide Anion Gap BUN Creatinine Estim Creat Clear Calc Estimated GFR POC Glucose 174 H 323 H Random Glucose Estimat Average Glucose Hemoglobin A1c % Calcium Magnesium Iron TIBC % Saturation Unsat Iron Binding Total Bilirubin Direct Bilirubin AST ALT Alkaline Phosphatase Lactate Dehydrogenase Total Protein Albumin Vitamin B12 Folate Hep Bs Antigen Negative Hep Bs Antibody NONREACTIVE Hep B Core Total Ab Nonreactive Hepatitis C Ab (EIA) Nonreactive HIV 1&2 Ab/P24 Ag 4thGn Nonreactive 03/04/21 03/04/21 03/04/21 05:38 05:38 05:38 WBC 3.7 L RBC 3.34 L Hgb 10.1 L Hct 29.5 L MCV 88.3 MCH 30.2 MCHC 34.2 RDW 14.8 Plt Count 39 L D MPV 10.2 Absolute Nucleated RBC 0.000 Nucleated RBC % (auto) 0.0 Absolute Retic Percent Retic Immature Retic Fraction Retic Hgb Equivalent PT 11.4 INR 1.0 Sodium 138 Potassium 3.7 Chloride 103 Carbon Dioxide 28 Anion Gap 11 L BUN 15 Creatinine 0.85 Estim Creat Clear Calc 84.4 Estimated GFR > 60 POC Glucose Random Glucose 245 H D Estimat Average Glucose Hemoglobin A1c % Calcium 8.9 D Magnesium 1.6 Iron 30 L TIBC 264 % Saturation 11 L Unsat Iron Binding 234 Total Bilirubin 0.4 Direct Bilirubin 0.2 AST 26 ALT 13 Alkaline Phosphatase 76 D Lactate Dehydrogenase 129 Total Protein 5.8 L Albumin 3.2 L Vitamin B12 Folate Hep Bs Antigen Hep Bs Antibody Hep B Core Total Ab Hepatitis C Ab (EIA) HIV 1&2 Ab/P24 Ag 4thGn 03/04/21 03/04/21 03/04/21 05:38 07:03 10:54 WBC RBC Hgb Hct MCV MCH MCHC RDW Plt Count MPV Absolute Nucleated RBC Nucleated RBC % (auto) Absolute Retic 0.111 H Percent Retic 3.3 H Immature Retic Fraction 23.4 H Retic Hgb Equivalent 35.0 PT INR Sodium Potassium Chloride Carbon Dioxide Anion Gap BUN Creatinine Estim Creat Clear Calc Estimated GFR POC Glucose 234 H 170 H Random Glucose Estimat Average Glucose Hemoglobin A1c % Calcium Magnesium Iron TIBC % Saturation Unsat Iron Binding Total Bilirubin Direct Bilirubin AST ALT Alkaline Phosphatase Lactate Dehydrogenase Total Protein Albumin Vitamin B12 Folate Hep Bs Antigen Hep Bs Antibody Hep B Core Total Ab Hepatitis C Ab (EIA) HIV 1&2 Ab/P24 Ag 4thGn Imaging Radiology Impressions: ITS Impressions Abdomen/Pelvis CT 02/27/21 21:29 IMPRESSION: 1. Redemonstration of pancreatic pseudocyst. Diminishing edema around the pseudocyst since prior CAT scan February 09, 2021. Calcifications in the pancreas from chronic pancreatitis. 2. No acute abnormality of bowel. Head CT 02/28/21 02:04 IMPRESSION: No acute intracranial pathology. Basilar tip aneurysm again noted. Mental Status Exam Mental Status Exam Patient Appearance: Appropriate Patient Orientation: Person, Place, Time and Situation Level of Consciousness: Awake, Appropriate and Alert Patient Behavior: Appropriate Mood Description: Calm and Appropriate Affect Description: Appropriate Patient Cognition Impaired: No Ability to Follow Directions: Excellent Speech Pattern: Clear Memory Description: Intact Delusions: Not Present Thought Process: Goal Oriented Thought Content: positive for Intact Judgement: Fair Medications Medications Current Medications Generic Name Dose Route Start Last Admin Trade Name Freq PRN Reason Stop Dose Admin Acetaminophen 650 mg 02/28/21 01:18 03/03/21 21:18 Acetaminophen 325 Mg Tablet PO 650 mg Q6H PRN Administration Pain, Mild (Pain Scale 1-3) Ferrous Sulfate 324 mg 03/04/21 09:30 03/04/21 09:46 Ferrous Sulfate 324 Mg Tablet. PO 324 mg DAILY JOSE Administration Gabapentin 400 mg 02/28/21 09:00 03/04/21 08:07 Gabapentin 400 Mg Capsule PO 400 mg TID JOSE Administration Insulin Glargine 18 unit 03/03/21 21:00 03/03/21 21:20 Insulin Glargine,Hum.Rec.Anlog 100 Unit/Ml 10 Ml Vial SUBCUT 18 unit BEDTIME JOSE Administration Insulin Human Lispro 0 unit 02/28/21 07:30 03/04/21 08:07 Insulin Lispro 100 Unit/Ml 3 Ml Vial SUBCUT 7 unit QIDACHS JOSE Administration Protocol Magnesium Oxide 800 mg 03/03/21 08:30 03/04/21 08:07 Magnesium Oxide 400 Mg Tablet PO 800 mg BIDPC JOSE Administration Medication 1 each 02/28/21 09:00 No Benzodiazepines MISCELLANE DAILY JOSE Melatonin 6 mg 02/28/21 01:18 Melatonin 3 Mg Tablet PO BEDTIME PRN Insomnia Multivitamins 1 tab 02/28/21 09:00 03/04/21 08:07 B-Complex With Vitamin C Tablet PO 1 tab DAILY JOSE Administration Nicotine Polacrilex 2 mg 03/01/21 15:15 03/04/21 09:46 Nicotine Polacrilex 2 Mg Lozenge BUCCAL 2 mg Q2H PRN Administration Nicotine Cravings Nicotine Polacrilex 2 mg 03/04/21 10:44 Nicotine Polacrilex 2 Mg Lozenge BUCCAL Q1H PRN Nicotine Cravings Omeprazole 20 mg 03/01/21 16:30 03/04/21 06:13 Omeprazole 20 Mg Capsule. PO 20 mg BID@0601,9740 [facility] Administration Pharmacy Consult 1 each 02/27/21 21:29 Consult Rx Perform Med Rec MISCELLANE ONCE PRN Consult order Phenobarbital 15 mg 03/05/21 09:00 Phenobarbital 15 Mg Tablet PO 03/06/21 09:01 DAILY [facility] Protocol Senna 17.2 mg 02/28/21 01:18 Sennosides 8.6 Mg Tablet PO BEDTIME PRN Constipation Sodium Chloride 3 ml 02/28/21 08:00 03/04/21 08:07 0.9 % Sodium Chloride Flush 3 Ml Syringe IVFLUSH 3 ml QSHIFT [facility] Administration Allergies Allergies Allergy/AdvReac Type Severity Reaction Status Date / Time acamprosate Allergy Unknown redness Verified 06/11/20 08:50 and itching Docusate Sodium Allergy Unknown Migraines Verified 07/16/20 14:05 Assessment & Plan Assessment & Plan (1) Alcohol use disorder, severe, dependence: Status: Acute Code(s): F10.20 - Alcohol dependence, uncomplicated Recommendations: Discussed available treatment options--patient requesting Campral. Aware of dosing, goals of treatment and side effects. Discussed Campral listed as an allergy--patient reports that this is inaccurate and he has taken Campral for several years. Discussed recovery supports with patient and coordinating outpatient care. Patient agreeable to meeting with livestock judging coach while in the hospital. Reports that primary care was prescribing Campral previously and would likely do so upon discharge. Total time spent with patient including coordinating care S 40 minutes Greater than 50% of the session was spent on counseling and/or coordination of care [facility] Past Medical History Medical History Attention deficit disorder Degenerative disc disease, cervical Depression Diabetes mellitus Dyslipidemia History of substance abuse Hypotestosteronism Osteoarthritis of right hand Pancreatitis Family History Family History Father Cancer Mother Cancer Diabetes Surgical History Surgical History History of surgery Social History Social History Household Members: None Housing: Apartment Do you presently have visiting nurse or other home services: No Unable to assess alcohol history related to: Refusing to respond Alcohol intake: current Alcohol intake frequency: 3 or more drinks per day Alcohol type: wine and hard liquor Patient Tobacco Use Status: Current everyday Tobacco user Tobacco use type: Cigarette Cigarette Packs Per Day: 1 Cigarettes Per Day: 20.0 Substance Use Type: Marijuana service: No Current occupational status: unemployed and disabled Current occupation: Right Handed
--- NOTE | 2021-03-04 11:15 | PM.EVENT ---
Event Note Date of Service: 03/04/21 Event Note: Contacted by provider, as Patient requesting to be started on seroquel, as he says he has bipolar disorder, and was on high doses of this in past. Patient recently seen by addiction STATIONARY BOILER FIREMAN re: ETOH use disorder and treatment options. This repairer typewriter reviewed chart, and discussed briefly with Yanique Hall. Communicated with Dr. Jacqueline Álvarez, recommendations are to hold off on starting seroquel as outpatient, and refer patient to his outpatient psych provider if he desires to be reinitiated on medications for bipolar disorder. Thank you. If you have any further questions or concerns, please do not hesitate to contact me at ext [phone]. Janette Nash, [id number]
[2021-03-04 11:27] VITALS: BP 112/82; PULSE 91; RESP 18; TEMP 36.6; O2SAT 99
--- NOTE | 2021-03-04 11:40 | PC.NURSE ---
Skin/Wound assessment completed today. The abrasions on right shoulder and left forearm are healed.
--- NOTE | 2021-03-04 12:06 | PM.DS ---
DS: Providers Provider Date of Service: 03/04/21 Date of admission: 02/28/21 01:19 Primary care physician: Jose White MD Consults: 03/01/21 11:05 Consult to Care Team Routine Comment: Reason for consultation: etoh abuse 03/03/21 09:01 Addiction Medicine Routine Consulting Provider: Yanique Hall Reason for consultation: etoh 03/04/21 10:44 Consult to Psychiatry Routine Consulting Provider: Psych Covering Reason for consultation: bipolar. was on quetiapine 400mg + 200mg prn. EtOH DS: Diagnosis Discharge Diagnosis (1) Alcohol abuse: Status: Acute (2) Thrombocytopenia: Status: Acute (3) Diabetes mellitus: Status: Acute (4) Hypomagnesemia: Status: Acute (5) Prolonged QT interval: Status: Acute (6) Alcohol withdrawal: Status: Acute (7) Pancytopenia: Status: Acute (8) Acute dehydration: Status: Acute (9) Alcoholic gastritis: Status: Acute DS: Medications Discharge Medications Home Medications: Home Medications Medication Instructions Recorded Confirmed gabapentin 1 cap PO TID 02/27/21 02/27/21 insulin glargine [Lantus Solostar 10 unit SUBCUT BEDTIME 02/27/21 02/27/21 U-100 Insulin] Previous Rx's Medication Instructions Recorded insulin lispro 100 unit/mL 12 unit SUBCUT TID 30 Days #15 ml 12/30/20 subcutaneous pen DS: Summary Hospital Course Hospital Course: from admission H+P by hospitalist Eamon Armijo, 02/28/21: 60-year-old male with a past medical history of alcohol abuse, diabetes, thrombocytopenia, history of brain aneurysm, tobacco dependence, history of pancreatitis / pseudocyst, history of ileus, alcohol abuse presented to the hospital with a chief complaint of nausea vomiting and abdominal discomfort for the past 2 days. Patient reports that he drinks regularly last drink was this morning; he has not been eating well; reports he has history of pancreatitis and for the past 2 days he has been having similar abdominal pain located in the upper abdomen associated with nausea and vomiting. Patient reports that he has history of diabetes-but is noncompliant with his insulin; last Insulin dose was couple days ago. patient reports that he has a history of brain aneurysm and has not had any intervention and has been having intermittent headaches; denies any blurry vision focal weakness. Denies any lightheadedness or dizziness. Patient denies any urinary symptoms. Denies any chest pain palpitations. Review of all other systems is negative except mentioned above ER course: Per ER team patient noted to be very dehydrated, mild abdominal tenderness noted, CT abdomen showed chronic pseudocyst; lipase was within normal limits. But labs also noted to have normal pH, CBD elevated lactate, a high anion gap, ketoacidosis, given IV fluids with improvement in anion gap. And improving lactic acidosis. Patient also received phenobarb for alcohol withdrawal. Admitted to the hospital for further management. The patient was admitted to the [facility] and started on phenobarbital taper with vitamin supplementation. Magnesium was repleted IV and PO and the patient was started on PO maintenance repletion. QTc normalized after magnesium repletion. He was given bid PPI for alcoholic gastritis. He was noted to have pancytopenia due to alcohol abuse. He was started on iron for iron deficiency. The importance of sobriety was counseled. He met with the addiction medicine specialist and was discharged on acamprosate. He will follow up with [place] [facility] for continued treatment of alcohol use disorder. He was incidentally noted on CT of the brain to have a 1 cm basilar artery aneurysm, present and unchanged since 09/12/20 and outpatient neurosurgery evaluation is recommended. He was discharged home with instructions to follow up with his primary care doctor in 1 week and to repeat labs (CBCd, CMP, and magnesium level) in 1 week. Time Spent with Patient Time attestation: Total time spent providing and/or coordinating discharge services: 40 Discharge coordination time: Greater than 30 minutes Quality: Stroke Does the patient have a stroke diagnosis?: No Physical Exam Vital Signs: Vital Signs: Last Vital Signs Temp 97.8 F 03/04/21 11:27 Pulse 91 03/04/21 11:27 Resp 18 03/04/21 11:27 BP 112/82 03/04/21 11:27 Pulse Ox 99 03/04/21 11:27 Body Mass Index 25.0 Gen: in no acute distress HEENT: sclera anicteric, moist mucus membranes Neck: supple Lungs: clear to auscultation bilaterally Heart: regular rate and rhythm, no murmurs Abd: soft, non-tender, non-distended Ext: no edema Skin: warm/well-perfused Neuro: alert and oriented x3, no focal findings Psych: appropriate affect DS: Data Data Completed and Pending Completed studies during hospitalization [Text1]: Laboratory Results WBC 3.7 X10*3/uL (4.8-10.8) L 03/04/21 05:38 RBC 3.34 X10*6/uL (4.60-5.80) L 03/04/21 05:38 Hgb 10.1 g/dl (14.0-18.0) L 03/04/21 05:38 Hct 29.5 % (42-52) L 03/04/21 05:38 MCV 88.3 fL (80-98) 03/04/21 05:38 MCH 30.2 pg (27.0-33.0) 03/04/21 05:38 MCHC 34.2 g/dl (31.0-36.0) 03/04/21 05:38 RDW 14.8 % (11.0-16.0) 03/04/21 05:38 Plt Count 39 X10*3/uL (160-400) L D 03/04/21 05:38 MPV 10.2 fL (9.4-12.4) 03/04/21 05:38 Immature Gran % (Auto) 0.4 % (0.0-0.4) 02/28/21 02:58 Neut % (Auto) 71.3 % (45-73) 02/28/21 02:58 Lymph % (Auto) 19.5 % (20-40) L 02/28/21 02:58 [place] % (Auto) 8.6 % (2-11) 02/28/21 02:58 Eos % (Auto) 0.0 % (0-4) 02/28/21 02:58 Baso % (Auto) 0.2 % (0-2) 02/28/21 02:58 Lymph # (Auto) 1.0 X10*3/uL (1.2-4.9) L 02/28/21 02:58 [place] # (Auto) 0.5 X10*3/uL (0.1-1.2) 02/28/21 02:58 Eos # (Auto) 0.0 X10*3/uL (0.0-0.4) 02/28/21 02:58 Baso # (Auto) 0.0 X10*3/uL (0.0-0.2) 02/28/21 02:58 Abs Immat Gran (auto) 0.02 X10*3/uL (0.00-0.03) 02/28/21 02:58 Absolute Neuts (auto) 3.8 X10*3/uL (2.0-8.3) 02/28/21 02:58 Absolute Nucleated RBC 0.000 X10*3/uL (0.0-0.012) 03/04/21 05:38 Nucleated RBC % (auto) 0.0 /100WBC (0.0-0.2) 03/04/21 05:38 Absolute Retic 0.111 X10*6/uL (0.026-0.095) H 03/04/21 05:38 Percent Retic 3.3 % (0.5-1.8) H 03/04/21 05:38 Immature Retic Fraction 23.4 % (2.3-13.4) H 03/04/21 05:38 Retic Hgb Equivalent 35.0 pg (30.0-35.0) 03/04/21 05:38 PT 11.4 SEC (9.9-13.0) 03/04/21 05:38 INR 1.0 (0.9-1.1) 03/04/21 05:38 VBG pH 7.46 (7.32-7.43) H 02/27/21 22:26 VBG pCO2 29 mmHg 02/27/21 22:26 VBG pO2 188 mmHg 02/27/21 22:26 VBG HCO3 21 mmol/L (22-26) L 02/27/21 22:26 VBG O2 Saturation 100.0 % 02/27/21 22:26 VBG Base Excess -1.1 mmol/L 02/27/21 22:26 Sodium 138 mmol/L (135-145) 03/04/21 05:38 Potassium 3.7 mmol/L (3.3-5.1) 03/04/21 05:38 Chloride 103 mmol/L (96-108) 03/04/21 05:38 Carbon Dioxide 28 mmol/L (22-29) 03/04/21 05:38 Anion Gap 11 (12-20) L 03/04/21 05:38 BUN 15 mg/dL (9-16) 03/04/21 05:38 Creatinine 0.85 mg/dL (0.5-1.4) 03/04/21 05:38 Estim Creat Clear Calc 84.4 03/04/21 05:38 Estimated GFR > 60 03/04/21 05:38 POC Glucose 170 mg/dL (60-115) H 03/04/21 10:54 Random Glucose 245 mg/dL (60-115) H D 03/04/21 05:38 Estimat Average Glucose 212 mg/dL 03/03/21 06:01 Hemoglobin A1c % 9.0 % 03/03/21 06:01 Lactic Acid 8.9 mmol/L (0.5-2.0) H* 02/27/21 22:16 Lactic Acid Fup @ 2Hr 5.2 mmol/L (0.5-2.0) H* 02/28/21 00:29 Lactic Acid Fup @ 4Hr 2.2 mmol/L (0.5-2.0) H* 02/28/21 02:58 Calcium 8.9 mg/dL (8.4-10.2) D 03/04/21 05:38 Magnesium 1.6 mg/dL (1.6-2.6) 03/04/21 05:38 Iron 30 mcg/dL (45-160) L 03/04/21 05:38 TIBC 264 mcg/dL (228-428) 03/04/21 05:38 % Saturation 11 % (15-50) L 03/04/21 05:38 Unsat Iron Binding 234 ug/dL 03/04/21 05:38 Total Bilirubin 0.4 mg/dL (0.0-1.0) 03/04/21 05:38 Direct Bilirubin 0.2 mg/dL (0.0-0.5) 03/04/21 05:38 AST 26 U/L (5-37) 03/04/21 05:38 ALT 13 U/L (0-40) 03/04/21 05:38 Alkaline Phosphatase 76 U/L (39-117) D 03/04/21 05:38 Lactate Dehydrogenase 129 U/L (118-273) 03/04/21 05:38 Troponin I High Sens < 3.5 ng/L (<3.5-35.0) 02/27/21 22:16 Total Protein 5.8 g/dL (6.5-8.0) L 03/04/21 05:38 Albumin 3.2 g/dL (3.5-5.0) L 03/04/21 05:38 Lipase 32 U/L (8-78) 02/27/21 22:17 Vitamin B12 462 pg/mL (200-900) 03/02/21 06:07 Folate 11.5 ng/mL (> or = 4.0) 03/02/21 06:07 Urine Color YELLOW 02/27/21 23:37 Urine Appearance CLEAR 02/27/21 23:37 Urine pH 6.0 (5.0-8.0) 02/27/21 23:37 Ur Specific [place] 1.025 (1.005-1.025) 02/27/21 23:37 Urine Protein NEG MG/DL (NEG-TRACE) 02/27/21 23:37 Urine Glucose (UA) >=1000 MG/DL (NEG) H 02/27/21 23:37 Urine Ketones >=80 MG/DL (NEG) 02/27/21 23:37 Urine Blood TRACE (NEG) 02/27/21 23:37 Urine Nitrite NEG (NEG) 02/27/21 23:37 Ur Leukocyte Esterase NEG (NEG) 02/27/21 23:37 Urine RBC 1-4 /HPF (0) 02/27/21 23:37 Urine WBC 0-2 /HPF (0-4) 02/27/21 23:37 Ur Squamous Epith Cells TRACE /LPF 02/27/21 23:37 Urine Bacteria TRACE /LPF 02/27/21 23:37 Ethyl Alcohol < 10 mg/dL 02/27/21 22:14 Acetone, Qual Moderate (Negative) H 02/27/21 22:17 COVID-19 (KAYLA) Negative (Negative) 02/27/21 23:37 COVID-19 Clin Com See Note 02/27/21 23:37 Hep Bs Antigen Negative (Negative) 03/04/21 05:38 Hep Bs Antibody NONREACTIVE (Nonreactive) 03/04/21 05:38 Hep B Core Total Ab Nonreactive (Nonreactive) 03/04/21 05:38 Hepatitis C Ab (EIA) Nonreactive (Nonreactive) 03/04/21 05:38 HIV 1&2 Ab/P24 Ag 4thGn Nonreactive (Nonreactive) 03/04/21 05:38 Impressions Abdomen/Pelvis CT 02/27/21 21:29 IMPRESSION: 1. Redemonstration of pancreatic pseudocyst. Diminishing edema around the pseudocyst since prior CAT scan February 09, 2021. Calcifications in the pancreas from chronic pancreatitis. 2. No acute abnormality of bowel. Head CT 02/28/21 02:04 IMPRESSION: No acute intracranial pathology. Basilar tip aneurysm again noted. Discharge Plan Discharge Patient Disposition: Home, Self-Care Discharge Diagnosis: alcohol dependence/withdrawal hypomagnesemia alcoholic gastritis pancytopenia brain aneurysm (chronic/stable) nicotine abuse bipolar disorder Referrals: Jose White MD [Primary Care Provider] - 03/05/21 3:00 pm (Post discharge appt with Dr. White on Wednesday, March 05, at 3 PM. Please call to reschedule if you are unable to make this appointment. ) Yanique Hall CNP [Nurse Practitioner] - 1 Week Physician,Unknown [Physician] - 1 Week Discharge Medications: New magnesium oxide 400 mg (241.3 mg magnesium) Tablet 800 mg PO BIDPC Qty: 120 RF: 0 omeprazole 20 mg Capsule,Delayed Release(Dr/Ec) 20 mg PO BID@0630,1630 Qty: 60 RF: 0 B-complex with vitamin C Tablet 1 tab PO DAILY Qty: 30 RF: 0 ferrous sulfate 324 mg (65 mg iron) Tablet,Delayed Release (Dr/Ec) 324 mg PO DAILY Qty: 30 RF: 0 nicotine (polacrilex) 2 mg Mini Lozenge 2 mg buccal Q1H PRN (Reason: Nicotine Cravings) Qty: 100 RF: 0 acamprosate 333 mg tablet,delayed release (DR/EC) 666 mg PO TID Qty: 180 RF: 0 Continued insulin lispro [Admelog SoloStar U-100 Insulin] 100 unit/mL insulin pen 12 unit subcut TID 30 Days Qty: 15 RF: 1 Lantus Solostar U-100 Insulin 100 unit/mL (3 mL) insulin pen 10 unit subcut BEDTIME RF: 0 gabapentin 400 mg capsule 1 cap PO TID RF: 0 Discharge Orders: Discharge Order (Routine); Ordered 03/04/21 Ordered By: Jacqueline Álvarez Diet: advance to usual diet Activity on Discharge: no etOH Stand Alone Forms: Patient Portal Discharge page Other Ambulatory Orders: Complete Blood Count Auto Diff (Routine) Timeframe: 1 Week Facility: [facility] - Location: Laboratory Ordered By: Jacqueline Mahoney. Panel (Routine) Timeframe: 1 Week Facility: [facility] - Location: Laboratory Ordered By: Jacqueline Álvarez Magnesium (Routine) Timeframe: 1 Week Facility: [facility] - Location: Laboratory Ordered By: Jacqueline Álvarez Care Plan Goals: sobriety, physical + mental health Health Concerns: alcohol dependence/withdrawal hypomagnesemia alcoholic gastritis pancytopenia brain aneurysm (chronic/stable) nicotine abuse bipolar disorder Plan of Treatment: avoid alcohol; start acamprosate 666 mg 3x a day and follow up with IVAN Hall at [facility] take magnesium oxide 800 mg twice daily; recheck labs in 1 week avoid alcohol; take omeprazole 20 mg twice daily avoid alcohol; take ferrous sulfate 325 mg once daily; recheck labs in 1 week stable brain aneurysm, 1 cm basilar artery; follow up with Neurosurgery as outpatient avoid smoking; use nicotine lozenge to help quit follow up with your psychiatry team see your primary care doctor in 1 week Assessment: as above Patient Instructions: Abuse of Alcohol (DC), Alcohol Dependence (DC)
--- NOTE | 2021-03-04 14:42 | MHC.CM.PN ---
pt dcd home no skilled services ordered by
--- NOTE | 2021-03-04 15:01 | MHC.CM.PN ---
PT DCD HOME GAVE [facility] VAN VOUCHER AND B US VOUCHER IF PT CANT MAKE VAN RIDE
== END 2021-03-04 15:42 | disposition home or self-care (01) | DRG 241 ==
LOC: HO.ED 02-28 00:37 → HO.EDOVER 02-28 01:53 → HO.IMC 02-28 01:55
PROVIDERS: Family Medicine; Hospitalist; Admitting Provider Hospitalist; Emergency Provider Emergency Medicine; PCP Internal Medicine; Visit Provider Family Medicine
DX: K29.20 Alcoholic gastritis without bleeding (principal); E11.42 Type 2 diabetes mellitus with diabetic polyneuropathy; E87.2 Acidosis; E11.65 Type 2 diabetes mellitus with hyperglycemia; E83.42 Hypomagnesemia; I72.5 Aneurysm of other precerebral arteries; E78.5 Hyperlipidemia, unspecified; F10.239 Alcohol dependence with withdrawal, unspecified; R94.31 Abnormal electrocardiogram [ECG] [EKG]; F98.8 Other specified behavioral and emotional disorders with onset usually occurring in childhood and adolescence; E86.0 Dehydration; F32.9 Major depressive disorder, single episode, unspecified; Z20.822 Contact with and (suspected) exposure to COVID-19; Z79.4 Long term (current) use of insulin; Z79.899 Other long term (current) drug therapy
CPT/HCPCS: 36415; 70450; 74176; 80048; 80076; 81001; 82009; 82077; 82607; 82746; 82947; 83036; 83540; 83605; 83615; 83690; 83735; 84484; 85025; 85027; 85045; 85610; 86704; 86706; 86803; 87340; 87389; 87635; 93005; 97161; 99285; J1170; J2060; J2270; J2405; J2560; J2765; J3411; J3475

== ENCOUNTER 2021-03-15 16:10 | Inpatient (IN) | payer OTHER, SELFPAY ==
--- NOTE | ~2021-03-15 | XR_ITS ---
EXAMINATION: XR KNEE, LEFT CLINICAL INFORMATION: Knee pain status post fall COMPARISON: None TECHNIQUE: Four views of the left knee. FINDINGS: Bones and soft tissues are normal. No fracture or joint effusion. Alignment is anatomic. Joint spaces are well maintained. No abnormal soft tissue calcification. XR/XR knee LT 4V IMPRESSION: Normal left knee.
--- NOTE | ~2021-03-15 | CT_ITS ---
EXAMINATION: CT HEAD WITHOUT CONTRAST CLINICAL INFORMATION: Fall injury. Alcohol. COMPARISON: Head CT dated 02/28/2021. TECHNIQUE: Contiguous axial imaging was performed from the skull base to vertex without intravenous administration of contrast. This CT examination was performed using dose optimization techniques as appropriate, variously including the following: *Automated exposure control *Adjustment of mA and/or kV according to patient size (this includes techniques or standardized protocols for targeted exams where dose is matched to indication/reason for exam; i.e. extremities or head) *Use of iterative reconstruction technique DLP: 843 mGy-cm FINDINGS: Small left posterior parietal/vertex soft tissue hematoma. There is no visible soft tissue trauma or skull fracture. There is no acute intracranial hemorrhage, midline shift, mass effect, intra- or extra-axial fluid collection. James-white matter differentiation is preserved. The ventricles and sulci are unremarkable. The basal cisterns are patent. Unchanged basilar tip aneurysm (2:33). The orbital contents are unremarkable bilaterally. Visualized paranasal sinuses and mastoid air cells are clear. CT/CT head/brain wo con IMPRESSION: --Left posterior parietal/vertex soft tissue hematoma. No underlying skull fracture. --No acute intracranial hemorrhage. --Unchanged basilar tip aneurysm.
--- NOTE | 2021-03-15 16:19 | ECG_ITS ---
Test Reason : ABDOMINAL PAIN Blood Pressure : / mmHG Vent. Rate : 093 BPM Atrial Rate : 093 BPM P-R Int : 146 ms QRS Dur : 068 ms QT Int : 388 ms P-R-T Axes : -16 025 062 degrees QTc Int : 482 ms Normal sinus rhythm Prolonged QT Abnormal ECG When compared with ECG of 02-MAR-2021 18:10, QT has lengthened Referred By: Rani Forrest Electronically Signed By:RICARDO CASANOVA MD
[2021-03-15 16:20] VITALS: BP 150/100; BP 153/92; PULSE 100; PULSE 82; RESP 18; TEMP 37.1; O2SAT 97; O2SAT 98; BMI 25.0
--- NOTE | 2021-03-15 16:32 | ED_ITS ---
HPI - Abdominal Pain General Chief Complaint: Abdominal Pain Stated Complaint: abdominal pain Time Seen by Provider: 03/15/21 16:16 Source: patient, EMS and old records reviewed Mode of arrival: EMS Limitations: no limitations History of Present Illness HPI narrative: 60 yo male with hx of chronic ETOH abuse - still drinking after last admission for ETOH gastritis/lyte derangements, pancytopenia, pancreatitis with known pseudocyst comes in with c/o return of abdominal pain n/v after drinking for the last week. Did fall and hurt his left knee and hit his head but no LOC MD elicited complaint: abdominal pain Pertinent past history: gastritis and other (pancreatitis) Onset (ago): day(s) (1) Pain Consistency: constant Location: epigastric Severity: similar to previous episodes Quality: stabbing Radiation: none Migration to: no migration Exacerbating factors: other (eating and drinking ETOH) Relieving factors: nothing Context: history of similar episodes Associated symptoms: nausea and vomiting Related Data Home Medications Medication Instructions Recorded Confirmed Lantus Solostar U-100 Insulin 10 unit SUBCUT BEDTIME 02/27/21 02/27/21 gabapentin 1 cap PO TID 02/27/21 02/27/21 Previous Rx's Medication Instructions Recorded insulin lispro 100 unit/mL 12 unit SUBCUT TID 30 Days #15 ml 12/30/20 subcutaneous pen B-complex with vitamin C 1 tab PO DAILY #30 tab 03/04/21 acamprosate 666 mg PO TID #180 tab 03/04/21 ferrous sulfate 324 mg PO DAILY #30 tab 03/04/21 magnesium oxide 800 mg PO BIDPC #120 tab 03/04/21 nicotine (polacrilex) 2 mg BUCCAL Q1H PRN #100 ea 03/04/21 omeprazole 20 mg PO BID@0630,1630 #60 cap 03/04/21 Allergies Allergy/AdvReac Type Severity Reaction Status Date / Time acamprosate Allergy Unknown redness Verified 06/11/20 08:50 and itching Docusate Sodium Allergy Unknown Migraines Verified 07/16/20 14:05 Review of Systems Review of Systems Constitutional : No Weight loss, No Fever, No Chills ENT/Mouth : No sore throat, No Rhinorrhea Eyes: No Swelling, No Redness Cardiovascular : No Chest Pain, No SOB, NoEdema Respiratory : No Cough, No Sputum, No Wheezing Gastrointestinal : Positive Nausea, Positive Vomiting, no Diarrhea, positive abdominal Pain, No Hematochezia, No Melena Genitourinary : No Dysuria, No Urinary Frequency, No Hematuria, No Urgency Musculoskeletal : pos joint pain, No Myalgias, No Joint Swelling Skin : No Skin Lesions, No rash Neuro : No Weakness, No Numbness, No Dizziness, No Headache Psych : No Anxiety/Panic, No Depression Heme/Lymph: No Bruising, No Lymphadenopathy Endocrine : No Polyuria, No Polydipsia All other systems reviewed and are negative. Physical Exam Vital Signs: Vital Signs: Last Vital Signs Temp 98.4 F 03/15/21 17:53 Pulse 80 03/15/21 17:53 Resp 18 03/15/21 17:53 BP 119/79 03/15/21 17:53 Pulse Ox 99 03/15/21 17:53 Body Mass Index 25.0 Appearance: Alert. Oriented X3. Mild acute distress. Disheveled and unkempt has stool that is dry down both legs Eyes: Pupils equal, round and reactive to light. ENT: Pharynx moderate dry MMM atraumatic scalp Neck: Normal inspection. Neck supple. CVS: Normal heart rate and rhythm. Pulses normal. Respiratory: No respiratory distress. Breath sounds normal. Abdomen: Soft and no distention, mild epigastric ttp somewhat distractable Skin: Skin warm and dry. pale skin color. Normal skin turgor. Extremities: No lower extremity edema. L knee ttp along patella distal NV intact Neuro: Oriented X 3. No motor deficit. No sensory deficit. Course Course Course Narrative: lactic acidosis, thrombocytopenia due to ETOH and not infection or severe sepsis chronic elevated acetone levels from ETOH and AKA not DKA gap and lactic acid cleared, thiamine ordered, phenobarb ordered MDM - Abdominal Pain MDM Narrative Medical decision making narrative: 60 yo male with hx of chronic ETOH abuse - still drinking after last admission for ETOH gastritis/lyte derangements, pancytopenia, pancreatitis with known pseudocyst comes in with c/o return of abdominal pain n/v after drinking for the last week. Did fall and hurt his left knee and hit his head but no LOC. At this time will need labs, IVF 2500cc bolus ordered, IV magnesium, IV ativan, CXR, CT head/L knee xray for trauma, suspect he will need admission again for ETOH gastritis - has failed multiple detox attempts does have a daughter but they are somewhat estranged so family would not be able to pursue a section 35. Lab Data Result diagrams: 03/15/21 16:33 03/15/21 19:17 Labs: Lab Results 03/15/21 03/15/21 03/15/21 Range/Units 16:33 16:33 16:33 WBC 5.0 (4.8-10.8) X10*3/uL RBC 3.95 L (4.60-5.80) X10*6/uL Hgb 12.3 L D (14.0-18.0) g/dl Hct 34.3 L (42-52) % MCV 86.8 (80-98) fL MCH 31.1 (27.0-33.0) pg MCHC 35.9 (31.0-36.0) g/dl RDW 14.1 (11.0-16.0) % Plt Count 82 L D (160-400) X10*3/uL MPV 8.9 L (9.4-12.4) fL Immature Gran % (Auto) 0.2 (0.0-0.4) % Neut % (Auto) 78.2 H (45-73) % Lymph % (Auto) 14.7 L (20-40) % Stephenson % (Auto) 6.5 (2-11) % Eos % (Auto) 0.0 (0-4) % Baso % (Auto) 0.4 (0-2) % Lymph # (Auto) 0.7 L (1.2-4.9) X10*3/uL Stephenson # (Auto) 0.3 (0.1-1.2) X10*3/uL Eos # (Auto) 0.0 (0.0-0.4) X10*3/uL Baso # (Auto) 0.0 (0.0-0.2) X10*3/uL Abs Immat Gran (auto) 0.01 (0.00-0.03) X10*3/uL Absolute Neuts (auto) 3.9 (2.0-8.3) X10*3/uL Absolute Nucleated RBC 0.000 (0.0-0.012) X10*3/uL Nucleated RBC % (auto) 0.0 (0.0-0.2) /100WBC PT 13.0 (9.9-13.0) SEC INR 1.1 (0.9-1.1) APTT 34.3 (24.1-38.0) SEC VBG pH (7.32-7.43) VBG pCO2 mmHg VBG pO2 mmHg VBG HCO3 (22-26) mmol/L VBG O2 Saturation % VBG Base Excess mmol/L Sodium 132 L (135-145) mmol/L Potassium 4.0 (3.3-5.1) mmol/L Chloride 91 L (96-108) mmol/L Carbon Dioxide 20 L (22-29) mmol/L Anion Gap 25 H (12-20) BUN 9 (9-16) mg/dL Creatinine 1.01 (0.5-1.4) mg/dL Estim Creat Clear Calc 71.0 Estimated GFR > 60 POC Glucose (60-115) mg/dL Random Glucose 426 H* (60-115) mg/dL Lactic Acid (0.5-2.0) mmol/L Lactic Acid Fup @ 2Hr (0.5-2.0) mmol/L Calcium 8.8 (8.4-10.2) mg/dL Magnesium (1.6-2.6) mg/dL Total Bilirubin (0.0-1.0) mg/dL Direct Bilirubin (0.0-0.5) mg/dL AST (5-37) U/L ALT (0-40) U/L Alkaline Phosphatase (39-117) U/L Lactate Dehydrogenase (118-273) U/L Troponin I High Sens (<3.5-35.0) ng/L Total Protein (6.5-8.0) g/dL Albumin (3.5-5.0) g/dL Lipase (8-78) U/L Urine Color Urine Appearance Urine pH (5.0-8.0) Ur Specific Reading (1.005-1.025) Urine Protein (NEG-TRACE) MG/DL Urine Glucose (UA) (NEG) MG/DL Urine Ketones (NEG) MG/DL Urine Blood (NEG) Urine Nitrite (NEG) Ur Leukocyte Esterase (NEG) Urine Opiates Screen (Not Detect) Ur Barbiturates Screen (Not Detect) Ur Phencyclidine Scrn (Not Detect) Ur Amphetamines Screen (Not Detect) U Benzodiazepines Scrn (Not Detect) Urine Cocaine Screen (Not Detect) U Marijuana (THC) Screen (Not Detect) Ethyl Alcohol mg/dL Acetone, Qual Small H (Negative) COVID-19 ([facility]LA) (Negative) COVID-19 Clin Com 03/15/21 03/15/21 03/15/21 Range/Units 16:33 16:33 16:33 WBC (4.8-10.8) X10*3/uL RBC (4.60-5.80) X10*6/uL Hgb (14.0-18.0) g/dl Hct (42-52) % MCV (80-98) fL MCH (27.0-33.0) pg MCHC (31.0-36.0) g/dl RDW (11.0-16.0) % Plt Count (160-400) X10*3/uL MPV (9.4-12.4) fL Immature Gran % (Auto) (0.0-0.4) % Neut % (Auto) (45-73) % Lymph % (Auto) (20-40) % Stephenson % (Auto) (2-11) % Eos % (Auto) (0-4) % Baso % (Auto) (0-2) % Lymph # (Auto) (1.2-4.9) X10*3/uL Stephenson # (Auto) (0.1-1.2) X10*3/uL Eos # (Auto) (0.0-0.4) X10*3/uL Baso # (Auto) (0.0-0.2) X10*3/uL Abs Immat Gran (auto) (0.00-0.03) X10*3/uL Absolute Neuts (auto) (2.0-8.3) X10*3/uL Absolute Nucleated RBC (0.0-0.012) X10*3/uL Nucleated RBC % (auto) (0.0-0.2) /100WBC PT (9.9-13.0) SEC INR (0.9-1.1) APTT (24.1-38.0) SEC VBG pH (7.32-7.43) VBG pCO2 mmHg VBG pO2 mmHg VBG HCO3 (22-26) mmol/L VBG O2 Saturation % VBG Base Excess mmol/L Sodium (135-145) mmol/L Potassium (3.3-5.1) mmol/L Chloride (96-108) mmol/L Carbon Dioxide (22-29) mmol/L Anion Gap (12-20) BUN (9-16) mg/dL Creatinine (0.5-1.4) mg/dL Estim Creat Clear Calc Estimated GFR POC Glucose (60-115) mg/dL Random Glucose (60-115) mg/dL Lactic Acid 2.9 H* (0.5-2.0) mmol/L Lactic Acid Fup @ 2Hr (0.5-2.0) mmol/L Calcium (8.4-10.2) mg/dL Magnesium 1.2 L* (1.6-2.6) mg/dL Total Bilirubin 1.2 H (0.0-1.0) mg/dL Direct Bilirubin 0.6 H (0.0-0.5) mg/dL AST 28 (5-37) U/L ALT 20 (0-40) U/L Alkaline Phosphatase 164 H D (39-117) U/L Lactate Dehydrogenase 143 (118-273) U/L Troponin I High Sens < 3.5 (<3.5-35.0) ng/L Total Protein 7.3 D (6.5-8.0) g/dL Albumin 4.0 D (3.5-5.0) g/dL Lipase 44 (8-78) U/L Urine Color Urine Appearance Urine pH (5.0-8.0) Ur Specific Reading (1.005-1.025) Urine Protein (NEG-TRACE) MG/DL Urine Glucose (UA) (NEG) MG/DL Urine Ketones (NEG) MG/DL Urine Blood (NEG) Urine Nitrite (NEG) Ur Leukocyte Esterase (NEG) Urine Opiates Screen (Not Detect) Ur Barbiturates Screen (Not Detect) Ur Phencyclidine Scrn (Not Detect) Ur Amphetamines Screen (Not Detect) U Benzodiazepines Scrn (Not Detect) Urine Cocaine Screen (Not Detect) U Marijuana (THC) Screen (Not Detect) Ethyl Alcohol mg/dL Acetone, Qual (Negative) COVID-19 ([facility]AYLA) (Negative) COVID-19 Clin Com 07/03/15/21 03/15/21 Range/Units 16:35 16:36 17:58 WBC (4.8-10.8) X10*3/uL RBC (4.60-5.80) X10*6/uL Hgb (14.0-18.0) g/dl Hct (42-52) % MCV (80-98) fL MCH (27.0-33.0) pg MCHC (31.0-36.0) g/dl RDW (11.0-16.0) % Plt Count (160-400) X10*3/uL MPV (9.4-12.4) fL Immature Gran % (Auto) (0.0-0.4) % Neut % (Auto) (45-73) % Lymph % (Auto) (20-40) % Stephenson % (Auto) (2-11) % Eos % (Auto) (0-4) % Baso % (Auto) (0-2) % Lymph # (Auto) (1.2-4.9) X10*3/uL Stephenson # (Auto) (0.1-1.2) X10*3/uL Eos # (Auto) (0.0-0.4) X10*3/uL Baso # (Auto) (0.0-0.2) X10*3/uL Abs Immat Gran (auto) (0.00-0.03) X10*3/uL Absolute Neuts (auto) (2.0-8.3) X10*3/uL Absolute Nucleated RBC (0.0-0.012) X10*3/uL Nucleated RBC % (auto) (0.0-0.2) /100WBC PT (9.9-13.0) SEC INR (0.9-1.1) APTT (24.1-38.0) SEC VBG pH 7.45 H (7.32-7.43) VBG pCO2 30 mmHg VBG pO2 85 mmHg VBG HCO3 21 L (22-26) mmol/L VBG O2 Saturation 97.0 % VBG Base Excess -1.4 mmol/L Sodium (135-145) mmol/L Potassium (3.3-5.1) mmol/L Chloride (96-108) mmol/L Carbon Dioxide (22-29) mmol/L Anion Gap (12-20) BUN (9-16) mg/dL Creatinine (0.5-1.4) mg/dL Estim Creat Clear Calc Estimated GFR POC Glucose 318 H (60-115) mg/dL Random Glucose (60-115) mg/dL Lactic Acid (0.5-2.0) mmol/L Lactic Acid Fup @ 2Hr (0.5-2.0) mmol/L Calcium (8.4-10.2) mg/dL Magnesium (1.6-2.6) mg/dL Total Bilirubin (0.0-1.0) mg/dL Direct Bilirubin (0.0-0.5) mg/dL AST (5-37) U/L ALT (0-40) U/L Alkaline Phosphatase (39-117) U/L Lactate Dehydrogenase (118-273) U/L Troponin I High Sens (<3.5-35.0) ng/L Total Protein (6.5-8.0) g/dL Albumin (3.5-5.0) g/dL Lipase (8-78) U/L Urine Color Urine Appearance Urine pH (5.0-8.0) Ur Specific Reading (1.005-1.025) Urine Protein (NEG-TRACE) MG/DL Urine Glucose (UA) (NEG) MG/DL Urine Ketones (NEG) MG/DL Urine Blood (NEG) Urine Nitrite (NEG) Ur Leukocyte Esterase (NEG) Urine Opiates Screen (Not Detect) Ur Barbiturates Screen (Not Detect) Ur Phencyclidine Scrn (Not Detect) Ur Amphetamines Screen (Not Detect) U Benzodiazepines Scrn (Not Detect) Urine Cocaine Screen (Not Detect) U Marijuana (THC) Screen (Not Detect) Ethyl Alcohol < 10 mg/dL Acetone, Qual (Negative) COVID-19 ([facility]LA) (Negative) COVID-19 Clin Com 03/15/21 03/15/21 03/15/21 Range/Units 19:11 19:17 19:17 WBC (4.8-10.8) X10*3/uL RBC (4.60-5.80) X10*6/uL Hgb (14.0-18.0) g/dl Hct (42-52) % MCV (80-98) fL MCH (27.0-33.0) pg MCHC (31.0-36.0) g/dl RDW (11.0-16.0) % Plt Count (160-400) X10*3/uL MPV (9.4-12.4) fL Immature Gran % (Auto) (0.0-0.4) % Neut % (Auto) (45-73) % Lymph % (Auto) (20-40) % Stephenson % (Auto) (2-11) % Eos % (Auto) (0-4) % Baso % (Auto) (0-2) % Lymph # (Auto) (1.2-4.9) X10*3/uL Stephenson # (Auto) (0.1-1.2) X10*3/uL Eos # (Auto) (0.0-0.4) X10*3/uL Baso # (Auto) (0.0-0.2) X10*3/uL Abs Immat Gran (auto) (0.00-0.03) X10*3/uL Absolute Neuts (auto) (2.0-8.3) X10*3/uL Absolute Nucleated RBC (0.0-0.012) X10*3/uL Nucleated RBC % (auto) (0.0-0.2) /100WBC PT (9.9-13.0) SEC INR (0.9-1.1) APTT (24.1-38.0) SEC VBG pH (7.32-7.43) VBG pCO2 mmHg VBG pO2 mmHg VBG HCO3 (22-26) mmol/L VBG O2 Saturation % VBG Base Excess mmol/L Sodium 132 L (135-145) mmol/L Potassium 4.0 (3.3-5.1) mmol/L Chloride 96 (96-108) mmol/L Carbon Dioxide 21 L (22-29) mmol/L Anion Gap 19 (12-20) BUN 8 L (9-16) mg/dL Creatinine 0.83 (0.5-1.4) mg/dL Estim Creat Clear Calc 86.4 Estimated GFR > 60 POC Glucose (60-115) mg/dL Random Glucose 340 H (60-115) mg/dL Lactic Acid (0.5-2.0) mmol/L Lactic Acid Fup @ 2Hr 1.8 (0.5-2.0) mmol/L Calcium 7.9 L D (8.4-10.2) mg/dL Magnesium (1.6-2.6) mg/dL Total Bilirubin (0.0-1.0) mg/dL Direct Bilirubin (0.0-0.5) mg/dL AST (5-37) U/L ALT (0-40) U/L Alkaline Phosphatase (39-117) U/L Lactate Dehydrogenase (118-273) U/L Troponin I High Sens (<3.5-35.0) ng/L Total Protein (6.5-8.0) g/dL Albumin (3.5-5.0) g/dL Lipase (8-78) U/L Urine Color Urine Appearance Urine pH (5.0-8.0) Ur Specific Reading (1.005-1.025) Urine Protein (NEG-TRACE) MG/DL Urine Glucose (UA) (NEG) MG/DL Urine Ketones (NEG) MG/DL Urine Blood (NEG) Urine Nitrite (NEG) Ur Leukocyte Esterase (NEG) Urine Opiates Screen (Not Detect) Ur Barbiturates Screen (Not Detect) Ur Phencyclidine Scrn (Not Detect) Ur Amphetamines Screen (Not Detect) U Benzodiazepines Scrn (Not Detect) Urine Cocaine Screen (Not Detect) U Marijuana (THC) Screen (Not Detect) Ethyl Alcohol mg/dL Acetone, Qual (Negative) COVID-19 ([facility]AYLA) Negative (Negative) COVID-19 Clin Com See Note 03/15/21 03/15/21 Range/Units 19:19 19:19 WBC (4.8-10.8) X10*3/uL RBC (4.60-5.80) X10*6/uL Hgb (14.0-18.0) g/dl Hct (42-52) % MCV (80-98) fL MCH (27.0-33.0) pg MCHC (31.0-36.0) g/dl RDW (11.0-16.0) % Plt Count (160-400) X10*3/uL MPV (9.4-12.4) fL Immature Gran % (Auto) (0.0-0.4) % Neut % (Auto) (45-73) % Lymph % (Auto) (20-40) % Stephenson % (Auto) (2-11) % Eos % (Auto) (0-4) % Baso % (Auto) (0-2) % Lymph # (Auto) (1.2-4.9) X10*3/uL Stephenson # (Auto) (0.1-1.2) X10*3/uL Eos # (Auto) (0.0-0.4) X10*3/uL Baso # (Auto) (0.0-0.2) X10*3/uL Abs Immat Gran (auto) (0.00-0.03) X10*3/uL Absolute Neuts (auto) (2.0-8.3) X10*3/uL Absolute Nucleated RBC (0.0-0.012) X10*3/uL Nucleated RBC % (auto) (0.0-0.2) /100WBC PT (9.9-13.0) SEC INR (0.9-1.1) APTT (24.1-38.0) SEC VBG pH (7.32-7.43) VBG pCO2 mmHg VBG pO2 mmHg VBG HCO3 (22-26) mmol/L VBG O2 Saturation % VBG Base Excess mmol/L Sodium (135-145) mmol/L Potassium (3.3-5.1) mmol/L Chloride (96-108) mmol/L Carbon Dioxide (22-29) mmol/L Anion Gap (12-20) BUN (9-16) mg/dL Creatinine (0.5-1.4) mg/dL Estim Creat Clear Calc Estimated GFR POC Glucose (60-115) mg/dL Random Glucose (60-115) mg/dL Lactic Acid (0.5-2.0) mmol/L Lactic Acid Fup @ 2Hr (0.5-2.0) mmol/L Calcium (8.4-10.2) mg/dL Magnesium (1.6-2.6) mg/dL Total Bilirubin (0.0-1.0) mg/dL Direct Bilirubin (0.0-0.5) mg/dL AST (5-37) U/L ALT (0-40) U/L Alkaline Phosphatase (39-117) U/L Lactate Dehydrogenase (118-273) U/L Troponin I High Sens (<3.5-35.0) ng/L Total Protein (6.5-8.0) g/dL Albumin (3.5-5.0) g/dL Lipase (8-78) U/L Urine Color YELLOW Urine Appearance CLEAR Urine pH 6.0 (5.0-8.0) Ur Specific Reading 1.015 (1.005-1.025) Urine Protein NEG (NEG-TRACE) MG/DL Urine Glucose (UA) >=1000 H (NEG) MG/DL Urine Ketones 40 (NEG) MG/DL Urine Blood TRACE (NEG) Urine Nitrite NEG (NEG) Ur Leukocyte Esterase NEG (NEG) Urine Opiates Screen Not Detected (Not Detect) Ur Barbiturates Screen POSITIVE H (Not Detect) Ur Phencyclidine Scrn Not Detected (Not Detect) Ur Amphetamines Screen Not Detected (Not Detect) U Benzodiazepines Scrn Not Detected (Not Detect) Urine Cocaine Screen Not Detected (Not Detect) U Marijuana (THC) Screen Not Detected (Not Detect) Ethyl Alcohol mg/dL Acetone, Qual (Negative) COVID-19 ([facility]LA) (Negative) COVID-19 Clin Com ECG Data Attestation: I personally reviewed and interpreted this ECG as follows: ECG interpretation date: 03/15/21 ECG interpretation time: 16:42 Interpretation: Rate: 93 Rhythm: NSR [place]: normal Normal P waves. Normal RICARDO. Normal QRS complex. ST T wave : normal no LUIS FERNANDO qTC: prolonged prior studies: no acute ischemia The study has been interpreted contemporaneously by me. . Critical Care Time Critical Care Time Critical Care Time: Yes Total Critical Care Time: 35 Attestation: review of records, 2L of IVF, phenobarb protocol I attest to this time spent taking care of the patient Discharge Plan Discharge Clinical Impression: Weakness, Hypomagnesemia, Acidosis, lactic, Acute hyperglycemia Alcoholic gastritis Qualifiers: Chronicity: chronic Gastritis bleeding: without bleeding Qualified Code(s): K29.20 - Alcoholic gastritis without bleeding Vomiting Qualifiers: Vomiting type: unspecified Vomiting Intractability: intractable Nausea presence: with nausea Qualified Code(s): R11.2 - Nausea with vomiting, unspecified Head injury Qualifiers: Encounter type: initial encounter Qualified Code(s): S09.90XA - Unspecified injury of head, initial encounter Patient Disposition: Admitted As Inpatient [facility] Past Medical History Attestation statement: The following information was validated with the patient. Medical History Acidosis, lactic Acute dehydration Acute hyperglycemia Alcohol abuse Alcohol dependence with withdrawal Alcohol use disorder, severe, dependence Attention deficit disorder Degenerative disc disease, cervical Depression Diabetes mellitus Dyslipidemia History of substance abuse Hypomagnesemia Hypotestosteronism Osteoarthritis of right hand Pancreatitis Prolonged QT interval Thrombocytopenia Vomiting Surgical History History of surgery Family History Family History Father Cancer Mother Cancer Diabetes Social History Social History Household Members: None Housing: Apartment Do you presently have visiting nurse or other home services: No Unable to assess alcohol history related to: Refusing to respond Alcohol intake: current Alcohol intake frequency: 3 or more drinks per day Alcohol type: wine and hard liquor Patient Tobacco Use Status: Current everyday Tobacco user Tobacco use type: Cigarette Cigarette Packs Per Day: 1 Cigarettes Per Day: 20.0 Use of substances other than those prescribed or required for medical reasons: No Substance Use Type: Marijuana Advance Directives: No Advance Directives Information Provided: No service: No Current occupational status: unemployed and disabled Current occupation: Right Handed
[2021-03-15 16:38] LABS: MANUAL DIFF FLAG NO
[2021-03-15 16:42] LABS: VBG Base Excess -1.4 mmol/L; VBG HCO3 21 mmol/L (22-26); VBG pCO2 30 mmHg; VBG pH 7.45 (7.32-7.43); VBG pO2 85 mmHg
[2021-03-15 16:43] LABS: Basophils Percent Auto 0.4 % (0-2); Hematocrit 34.3 % (42-52); Hemoglobin 12.3 g/dl (14.0-18.0); Imm Gran Abs Auto 0.01 X10*3/uL (0.00-0.03); Imm Gran Pct Auto 0.2 % (0.0-0.4); Lymphocytes Absolute Auto 0.7 X10*3/uL (1.2-4.9); Lymphocytes Percent Auto 14.7 % (20-40); Mean Corpuscular HGB Conc 35.9 g/dl (31.0-36.0); Mean Corpuscular Hemoglobin 31.1 pg (27.0-33.0); Mean Corpuscular Volume 86.8 fL (80-98); Mean Platelet Volume 8.9 fL (9.4-12.4); Monocytes Absolute Auto 0.3 X10*3/uL (0.1-1.2); Monocytes Percent Auto 6.5 % (2-11); Neutrophils Absolute Auto 3.9 X10*3/uL (2.0-8.3); Neutrophils Percent Auto 78.2 % (45-73); Red Blood Count 3.95 X10*6/uL (4.60-5.80); Red Cell Distribution Width 14.1 % (11.0-16.0); Venous Blood Gas Refer to POC result
[2021-03-15 16:46] LABS: Platelet Count 82 X10*3/uL (160-400)
[2021-03-15] MEDS: 0.9 % Sodium Chloride 1,000 ML 999 ML IVCONT ×2 (16:55)
[2021-03-15 16:56] LABS: Acetone, serum QL Small (Negative); INTERNATIONAL NORM RATIO 1.1 (0.9-1.1)
[2021-03-15] MEDS: Magnesium Sulfate/H2O 2 GM/50 ML PIGGYBACK IV (16:56)
[2021-03-15] MEDS: 0.9 % Sodium Chloride 500 ML IV (16:56)
[2021-03-15] MEDS: Famotidine/PF 20 MG/2 ML VIAL IVPUSH ×2 (16:56→20:48)
[2021-03-15] MEDS: LORazepam 2 MG/ML VIAL 1 MG IVPUSH (16:56)
[2021-03-15 16:59] LABS: Partial Thromboplastin Time 34.3 SEC (24.1-38.0)
[2021-03-15 17:02] LABS: Ethanol < 10 mg/dL
[2021-03-15 17:02] LABS: Lactic Acid 2.9 mmol/L (0.5-2.0)
[2021-03-15 17:08] LABS: Troponin-I High Sensitivity < 3.5 ng/L (<3.5-35.0)
[2021-03-15 17:11] LABS: Alanine Aminotransferase 20 U/L (0-40); Alkaline Phosphatase 164 U/L (39-117); Anion Gap 25 (12-20); Aspartate Amino Transferase 28 U/L (5-37); Bilirubin Direct 0.6 mg/dL (0.0-0.5); Bilirubin Total 1.2 mg/dL (0.0-1.0); Blood Urea Nitrogen 9 mg/dL (9-16); Calcium 8.8 mg/dL (8.4-10.2); Carbon Dioxide 20 mmol/L (22-29); Chloride 91 mmol/L (96-108); Estimated Glomerular Filt Rate > 60; Glucose Random 426 mg/dL (60-115); Lipase 44 U/L (8-78); Magnesium 1.2 mg/dL (1.6-2.6); Sodium 132 mmol/L (135-145); Total Protein 7.3 g/dL (6.5-8.0)
[2021-03-15] MEDS: Insulin Regular, Human 100 UNIT/ML 3 ML VIAL 10 UNIT IVPUSH (17:17)
[2021-03-15 17:19] LABS: Lactate Dehydrogenase 143 U/L (118-273)
[2021-03-15 17:53] VITALS: BP 119/79; PULSE 80; RESP 18; TEMP 36.9; O2SAT 99
[2021-03-15 18:06] LABS: Glucose, Whole Blood 318 mg/dL (60-115)
[2021-03-15 18:36] LABS: Reflex Lactate? Lactic Acid Added
[2021-03-15 19:34] LABS: Glucose Urine UA >=1000 MG/DL (NEG); Leukocyte Esterase Urine NEG (NEG); Nitrite Urine NEG (NEG); Specific Gravity - Urine 1.015 (1.005-1.025); Urine Blood TRACE (NEG); Urine Ketones 40 MG/DL (NEG); Urine Protein NEG (NEG-TRACE)
[2021-03-15 19:35] LABS: Appearance Urine CLEAR; Color Urine YELLOW
[2021-03-15 19:43] LABS: COVID-19 Test Negative (Negative)
[2021-03-15 19:52] LABS: ~Lactic Acid-LAB USE ONLY 1.8 mmol/L (0.5-2.0)
[2021-03-15 19:54] LABS: Amphetamine Screen Urine Not Detected (Not Detect); Barbiturates, Urine POSITIVE (Not Detect); Benzodiazepines Screen Urine Not Detected (Not Detect); Cannabinoid Screen Urine Not Detected (Not Detect); Cocaine Screen Urine Not Detected (Not Detect); Opiate Screen Urine Not Detected (Not Detect); Phencyclidine Screen Urine Not Detected (Not Detect)
[2021-03-15 19:55] LABS: Anion Gap 19 (12-20); Blood Urea Nitrogen 8 mg/dL (9-16); Calcium 7.9 mg/dL (8.4-10.2); Carbon Dioxide 21 mmol/L (22-29); Chloride 96 mmol/L (96-108); Creatinine Clr Calc Pharmacy 86.4; Estimated Glomerular Filt Rate > 60; Glucose Random 340 mg/dL (60-115); Sodium 132 mmol/L (135-145)
[2021-03-15 20:09] VITALS: BP 128/92; PULSE 76; RESP 16
--- NOTE | 2021-03-15 20:11 | PM.IMHP ---
History of Present Illness Date of Service: 03/15/21 Chief Complaint: Fall 60-year-old male with a past medical history of alcohol abuse, thrombocytopenia, anemia resume, tobacco dependence, history of pancreatitis with pseudocyst, ileus presented to the hospital with a chief complaint of nausea vomiting and abdominal discomfort. Patient reported that he had a fall and hurt his knee; denies any head strike or loss of consciousness. Patient denies any chest pain palpitations lightheadedness or dizziness. Patient denies any nausea vomiting or blood in the stool. Denies any urinary symptoms. Review of all other systems is negative except mentioned above ER course: ER team mentioned that patient's exam was nonfocal; CT head showed no acute findings; knee x-ray showed no acute findings; wound patient was given phenobarb protocol for alcohol abuse; admitted for further management. [facility] Medical History Acidosis, lactic Acute dehydration Acute hyperglycemia Alcohol abuse Alcohol dependence with withdrawal Alcohol use disorder, severe, dependence Attention deficit disorder Degenerative disc disease, cervical Depression Diabetes mellitus Dyslipidemia History of substance abuse Hypomagnesemia Hypotestosteronism Osteoarthritis of right hand Pancreatitis Prolonged QT interval Thrombocytopenia Vomiting Family History Father Cancer Mother Cancer Diabetes Surgical History History of surgery Social History Household Members: None Housing: Apartment Do you presently have visiting nurse or other home services: No Unable to assess alcohol history related to: Refusing to respond Alcohol intake: current Alcohol intake frequency: 3 or more drinks per day Alcohol type: wine and hard liquor Patient Tobacco Use Status: Current everyday Tobacco user Tobacco use type: Cigarette Cigarette Packs Per Day: 2 Cigarettes Per Day: 40.0 Substance Use Type: Marijuana Advance Directives: No Advance Directives Information Provided: No service: No Current occupational status: unemployed and disabled Current occupation: Right Handed Meds Allergies Allergy/AdvReac Type Severity Reaction Status Date / Time No Known Drug Allergies Allergy Unknown Verified 03/24/21 00:43 Active Medications: Current Medications Generic Name Dose Route Start Last Admin Trade Name Freq PRN Reason Stop Dose Admin Medication 1 each 03/15/21 20:10 No Benzodiazepines MISCELLANE DAILY [facility] Pharmacy Consult 1 each 03/15/21 20:00 Consult Rx Etoh Phenob Dosing MISCELLANE 03/15/21 20:01 ONCE ONE Protocol Phenobarbital 15 mg 03/16/21 09:00 Phenobarbital 15 Mg Tablet PO 03/17/21 21:01 BID [facility] Protocol Phenobarbital 30 mg 03/18/21 09:00 Phenobarbital 30 Mg Tablet PO 03/19/21 21:01 BID [facility] Protocol Phenobarbital 15 mg 03/20/21 09:00 Phenobarbital 15 Mg Tablet PO 03/21/21 09:01 DAILY [facility] Protocol Phenobarbital Sodium 204.16 mg 03/15/21 20:30 Phenobarbital Sodium 130 Mg/Ml Vial IM 03/15/21 20:31 ONCE ONE Protocol Phenobarbital Sodium 135.13 mg 03/16/21 00:00 Phenobarbital Sodium 65 Mg/Ml Vial IM 03/16/21 03:01 Q3H [facility] Protocol Home Medications Medication Instructions Recorded Confirmed Last Taken Type gabapentin 400 mg capsule 1 cap PO TID 02/27/21 03/24/21 Unknown History insulin glargine 100 unit/mL (3 10 unit SUBCUT BEDTIME 02/27/21 03/24/21 Unknown History mL) subcutaneous pen (Lantus Solostar U-100 Insulin) famotidine 20 mg tablet (Pepcid AC 20 mg PO BID 03/24/21 03/24/21 Unknown History Maximum Strength) insulin lispro 100 unit/mL 12 unit SUBCUT TIDWM 03/24/21 03/24/21 Unknown History subcutaneous pen (Admelog SoloStar U-100 Insulin lispro) Physical Exam Vital Signs and Narrative: Vital Signs: Last Vital Signs Temp 98.4 F 03/15/21 17:53 Pulse 80 03/15/21 17:53 Resp 18 03/15/21 17:53 BP 119/79 03/15/21 17:53 Pulse Ox 99 03/15/21 17:53 Body Mass Index 25.0 Gen: Appears be in no acute distress; lying in the bed comfortably; has a cane next to him; thin built HEENT: NCAT, Dry mucosa. Pulmonary: Vesicular breath sounds, fair air entry CVS: Normal S1-S2 Abdomen: BS+, Soft, mildly tender diffusely; no guarding no rigidity Extremities: Warm well perfused Neuro: Alert and awake.[email or web address] Results Labs CBC and Chem 7: 03/16/21 05:24 03/16/21 05:24 Labs: Laboratory Results - last 24 hr 03/15/21 03/15/21 03/15/21 16:33 16:33 16:33 MCV 86.8 MCH 31.1 MCHC 35.9 RDW 14.1 Plt Count 82 L D MPV 8.9 L Immature Gran % (Auto) 0.2 Neut % (Auto) 78.2 H Lymph % (Auto) 14.7 L [place] % (Auto) 6.5 Eos % (Auto) 0.0 Baso % (Auto) 0.4 Lymph # (Auto) 0.7 L [place] # (Auto) 0.3 Eos # (Auto) 0.0 Baso # (Auto) 0.0 Abs Immat Gran (auto) 0.01 Absolute Neuts (auto) 3.9 Absolute Nucleated RBC 0.000 Nucleated RBC % (auto) 0.0 PT 13.0 INR 1.1 APTT 34.3 VBG pH VBG pCO2 VBG pO2 VBG HCO3 VBG O2 Saturation VBG Base Excess Anion Gap 25 H Estim Creat Clear Calc 71.0 Estimated GFR > 60 POC Glucose Random Glucose 426 H* Lactic Acid Lactic Acid Fup @ 2Hr Calcium 8.8 Magnesium Total Bilirubin Direct Bilirubin AST ALT Alkaline Phosphatase Lactate Dehydrogenase Troponin I High Sens Total Protein Albumin Lipase Urine Color Urine Appearance Urine pH Ur Specific [place] Urine Protein Urine Glucose (UA) Urine Ketones Urine Blood Urine Nitrite Ur Leukocyte Esterase Urine Opiates Screen Ur Barbiturates Screen Ur Phencyclidine Scrn Ur Amphetamines Screen U Benzodiazepines Scrn Urine Cocaine Screen U Marijuana (THC) Screen Ethyl Alcohol Acetone, Qual Small H COVID-19 ([facility]) COVID-19 Clin Com 03/15/21 03/15/21 03/15/21 16:33 16:33 16:33 MCV MCH MCHC RDW Plt Count MPV Immature Gran % (Auto) Neut % (Auto) Lymph % (Auto) [place] % (Auto) Eos % (Auto) Baso % (Auto) Lymph # (Auto) [place] # (Auto) Eos # (Auto) Baso # (Auto) Abs Immat Gran (auto) Absolute Neuts (auto) Absolute Nucleated RBC Nucleated RBC % (auto) PT INR APTT VBG pH VBG pCO2 VBG pO2 VBG HCO3 VBG O2 Saturation VBG Base Excess Anion Gap Estim Creat Clear Calc Estimated GFR POC Glucose Random Glucose Lactic Acid 2.9 H* Lactic Acid Fup @ 2Hr Calcium Magnesium 1.2 L* Total Bilirubin 1.2 H Direct Bilirubin 0.6 H AST 28 ALT 20 Alkaline Phosphatase 164 H D Lactate Dehydrogenase 143 Troponin I High Sens < 3.5 Total Protein 7.3 D Albumin 4.0 D Lipase 44 Urine Color Urine Appearance Urine pH Ur Specific [place] Urine Protein Urine Glucose (UA) Urine Ketones Urine Blood Urine Nitrite Ur Leukocyte Esterase Urine Opiates Screen Ur Barbiturates Screen Ur Phencyclidine Scrn Ur Amphetamines Screen U Benzodiazepines Scrn Urine Cocaine Screen U Marijuana (THC) Screen Ethyl Alcohol Acetone, Qual COVID-19 ([facility]) COVID-19 [email or web address] 03/15/21 03/15/21 03/15/21 16:35 16:36 17:58 MCV MCH MCHC RDW Plt Count MPV Immature Gran % (Auto) Neut % (Auto) Lymph % (Auto) [place] % (Auto) Eos % (Auto) Baso % (Auto) Lymph # (Auto) [place] # (Auto) Eos # (Auto) Baso # (Auto) Abs Immat Gran (auto) Absolute Neuts (auto) Absolute Nucleated RBC Nucleated RBC % (auto) PT INR APTT VBG pH 7.45 H VBG pCO2 30 VBG pO2 85 VBG HCO3 21 L VBG O2 Saturation 97.0 VBG Base Excess -1.4 Anion Gap Estim Creat Clear Calc Estimated GFR POC Glucose 318 H Random Glucose Lactic Acid Lactic Acid Fup @ 2Hr Calcium Magnesium Total Bilirubin Direct Bilirubin AST ALT Alkaline Phosphatase Lactate Dehydrogenase Troponin I High Sens Total Protein Albumin Lipase Urine Color Urine Appearance Urine pH Ur Specific [place] Urine Protein Urine Glucose (UA) Urine Ketones Urine Blood Urine Nitrite Ur Leukocyte Esterase Urine Opiates Screen Ur Barbiturates Screen Ur Phencyclidine Scrn Ur Amphetamines Screen U Benzodiazepines Scrn Urine Cocaine Screen U Marijuana (THC) Screen Ethyl Alcohol < 10 Acetone, Qual COVID-19 ([facility]) COVID-19 [email or web address] 03/15/21 03/15/21 03/15/21 19:11 19:17 19:17 MCV MCH MCHC RDW Plt Count MPV Immature Gran % (Auto) Neut % (Auto) Lymph % (Auto) [place] % (Auto) Eos % (Auto) Baso % (Auto) Lymph # (Auto) [place] # (Auto) Eos # (Auto) Baso # (Auto) Abs Immat Gran (auto) Absolute Neuts (auto) Absolute Nucleated RBC Nucleated RBC % (auto) PT INR APTT VBG pH VBG pCO2 VBG pO2 VBG HCO3 VBG O2 Saturation VBG Base Excess Anion Gap 19 Estim Creat Clear Calc 86.4 Estimated GFR > 60 POC Glucose Random Glucose 340 H Lactic Acid Lactic Acid Fup @ 2Hr 1.8 Calcium 7.9 L D Magnesium Total Bilirubin Direct Bilirubin AST ALT Alkaline Phosphatase Lactate Dehydrogenase Troponin I High Sens Total Protein Albumin Lipase Urine Color Urine Appearance Urine pH Ur Specific [place] Urine Protein Urine Glucose (UA) Urine Ketones Urine Blood Urine Nitrite Ur Leukocyte Esterase Urine Opiates Screen Ur Barbiturates Screen Ur Phencyclidine Scrn Ur Amphetamines Screen U Benzodiazepines Scrn Urine Cocaine Screen U Marijuana (THC) Screen Ethyl Alcohol Acetone, Qual COVID-19 ([facility]) Negative COVID-19 Clin Com See Note 03/15/21 03/15/21 19:19 19:19 MCV MCH MCHC RDW Plt Count MPV Immature Gran % (Auto) Neut % (Auto) Lymph % (Auto) [place] % (Auto) Eos % (Auto) Baso % (Auto) Lymph # (Auto) [place] # (Auto) Eos # (Auto) Baso # (Auto) Abs Immat Gran (auto) Absolute Neuts (auto) Absolute Nucleated RBC Nucleated RBC % (auto) PT INR APTT VBG pH VBG pCO2 VBG pO2 VBG HCO3 VBG O2 Saturation VBG Base Excess Anion Gap Estim Creat Clear Calc Estimated GFR POC Glucose Random Glucose Lactic Acid Lactic Acid Fup @ 2Hr Calcium Magnesium Total Bilirubin Direct Bilirubin AST ALT Alkaline Phosphatase Lactate Dehydrogenase Troponin I High Sens Total Protein Albumin Lipase Urine Color YELLOW Urine Appearance CLEAR Urine pH 6.0 Ur Specific [place] 1.015 Urine Protein NEG Urine Glucose (UA) >=1000 H Urine Ketones 40 Urine Blood TRACE Urine Nitrite NEG Ur Leukocyte Esterase NEG Urine Opiates Screen Not Detected Ur Barbiturates Screen POSITIVE H Ur Phencyclidine Scrn Not Detected Ur Amphetamines Screen Not Detected U Benzodiazepines Scrn Not Detected Urine Cocaine Screen Not Detected U Marijuana (THC) Screen Not Detected Ethyl Alcohol Acetone, Qual COVID-19 ([facility]) COVID-19 Clin Com Imaging Radiologist's Impressions: Impressions Knee X-Ray 03/15/21 16:19 IMPRESSION: Normal left knee. Head CT 03/15/21 16:20 IMPRESSION: --Left posterior parietal/vertex soft tissue hematoma. No underlying skull fracture. --No acute intracranial hemorrhage. --Unchanged basilar tip aneurysm. Assessment and Plan (1) Alcoholic gastritis: Qualifiers: Chronicity: chronic Gastritis bleeding: without bleeding Qualified Code(s): K29.20 - Alcoholic gastritis without bleeding Status: Acute 60-year-old male with a past medical history of diabetes, alcohol abuse, tobacco dependence, thrombocytopenia, pancreatic pseudocyst presented to the hospital with a chief complaint of 1/nausea vomiting and abdominal comfort; admitted for alcoholic gastritis. fall: mechanical: CT head showed no acute intracranial abnormality; noted soft tissue hematoma was called. Supportive care. Fall precautions. PT/OT. X-rays were negative. Alcoholic Gastritis: Lipase is normal limits; Pain control. Pepcid IV b.i.d.. Clear liquid diet as tolerated. Alcohol abuse: Patient on phenobarb protocol. Thiamine, folate: Multivitamins. Hx Brain aneurysm: Denies any blurry visions or focal weakness. BP stable Hx chronic Thrombocytopenia: Will continue to monitor. Denies any signs of bleeding DVT prophylaxis: SCD boots Code status: Full code Quality Stroke Does the patient have a stroke diagnosis?: No VTE Prior VTE?: No VTE Risk Level:: Medical - moderate - high VTE Device Contraindication: N/A - Device Ordered VTE Drug Contraindication: Treatment Not Indicated
[2021-03-15 20:26] LABS: RBC Urine 0-2 /HPF (0); Squamous Epithelial Cell Urine TRACE /LPF; WBC Urine 0-2 /HPF (0-4)
[2021-03-15] MEDS: Thiamine HCL 200 MG/2 ML VIAL 100 MG IVPUSH (20:42)
[2021-03-15] MEDS: 0.9 % Sodium Chloride 1,000 ML 100 ML IVCONT (20:42)
[2021-03-15] MEDS: PHENobarbitaL sodium 130 MG/ML VIAL 204.16 MG IM (20:45)
[2021-03-15 21:08] LABS: Glucose, Whole Blood 285 mg/dL (60-115)
[2021-03-15] MEDS: Insulin Lispro 100 UNIT/ML 3 ML VIAL SUBCUT (21:39)
[2021-03-16] MEDS: Nicotine 21 MG PATCH.TD24 TRANSDERMA (00:33)
[2021-03-16] MEDS: PHENobarbitaL sodium 130 MG/ML VIAL 135.2 MG IM ×2 (00:34→03:36)
[2021-03-16] MEDS: 0.9 % Sodium Chloride Flush 3 ML SYRINGE IVFLUSH ×3 (00:34→16:55)
[2021-03-16] MEDS: 0.9 % Sodium Chloride 1,000 ML 100 ML IVCONT ×2 (03:42→14:19)
[2021-03-16 04:00] VITALS: BP 105/67; PULSE 66; RESP 16; TEMP 36.7; O2SAT 100
[2021-03-16 06:53] LABS: MANUAL DIFF FLAG NO
[2021-03-16 07:00] LABS: Basophils Percent Auto 0.6 % (0-2); Eosinophils Absolute Auto 0.1 X10*3/uL (0.0-0.4); Eosinophils Percent Auto 1.9 % (0-4); Hematocrit 29.3 % (42-52); Hemoglobin 10.4 g/dl (14.0-18.0); Imm Gran Abs Auto 0.01 X10*3/uL (0.00-0.03); Imm Gran Pct Auto 0.3 % (0.0-0.4); Lymphocytes Absolute Auto 1.4 X10*3/uL (1.2-4.9); Mean Corpuscular HGB Conc 35.5 g/dl (31.0-36.0); Mean Corpuscular Hemoglobin 31.5 pg (27.0-33.0); Mean Corpuscular Volume 88.8 fL (80-98); Monocytes Absolute Auto 0.2 X10*3/uL (0.1-1.2); Neutrophils Absolute Auto 1.5 X10*3/uL (2.0-8.3); Neutrophils Percent Auto 46.2 % (45-73); Red Cell Distribution Width 14.3 % (11.0-16.0); White Blood Count 3.2 X10*3/uL (4.8-10.8)
[2021-03-16 07:24] LABS: Platelet Count 52 X10*3/uL (160-400)
[2021-03-16 07:27] LABS: Anion Gap 15 (12-20); Blood Urea Nitrogen 7 mg/dL (9-16); Calcium 7.6 mg/dL (8.4-10.2); Carbon Dioxide 22 mmol/L (22-29); Chloride 102 mmol/L (96-108); Creatinine Clr Calc Pharmacy 96.9; Estimated Glomerular Filt Rate > 60; Glucose Random 242 mg/dL (60-115); Potassium 3.3 mmol/L (3.3-5.1); Sodium 136 mmol/L (135-145)
[2021-03-16 08:00] VITALS: BP 107/74; PULSE 64; RESP 18; TEMP 36.2; O2SAT 97
[2021-03-16 08:21] LABS: Glucose, Whole Blood 245 mg/dL (60-115)
[2021-03-16] MEDS: PHENobarbitaL 15 MG TABLET 45 MG PO ×2 (08:31→21:57)
[2021-03-16] MEDS: Insulin Lispro 100 UNIT/ML 3 ML VIAL SUBCUT ×4 (08:32→21:58)
[2021-03-16] MEDS: Thiamine HCL 100 MG TABLET PO (08:32)
[2021-03-16] MEDS: Folic Acid 1 MG TABLET PO (08:32)
[2021-03-16] MEDS: Famotidine/PF 20 MG/2 ML VIAL IVPUSH ×2 (08:33→21:57)
--- NOTE | 2021-03-16 11:16 | MHC.CM.PN ---
Patient lives alone, no prior services, has a cane and a CPAP machine. Has been to detox and nursing home homes in the past and does not wish to explore again. Transport TBD.
[2021-03-16 11:18] LABS: Glucose, Whole Blood 197 mg/dL (60-115)
[2021-03-16 12:31] VITALS: BP 138/71; PULSE 78; RESP 18; TEMP 35.3; O2SAT 98
[2021-03-16 12:54] LABS: Magnesium 1.5 mg/dL (1.6-2.6)
--- NOTE | 2021-03-16 13:34 | P.PNIM_ITS ---
Subjective Subjective Date of Service: 03/16/21 Interval History: Seen in f/u alcoholic gastritis, and electrolyte shift. He is having diarrhea, a bit shaky Review of Systems Gen: no fever Resp: no sob, no cough CV: no chest, no BARNES, no leg edema GI: No n/v, no abd pain, diarrhea Neuro: No confusion Physical Exam Vital Signs: Vital Signs: Last Vital Signs Temp 95.5 F L 03/16/21 12:31 Pulse 78 03/16/21 12:31 Resp 18 03/16/21 12:31 BP 138/71 03/16/21 12:31 Pulse Ox 98 03/16/21 12:31 Body Mass Index 25.0 Const: Other: General: AO X 3, no acute distress Resp: CTA bilateral CVS: S1,S2,RRR GI: +BS, NT, no distention Skin: No rash Neuro: motor grossly intact Psych: appropriate affect Objective Data Current Medications Generic Name Dose Route Start Last Admin Trade Name Freq PRN Reason Stop Dose Admin Acetaminophen 650 mg 03/15/21 20:06 Acetaminophen 325 Mg Tablet PO Q6H PRN Pain, Mild (Pain Scale 1-3) Famotidine 20 mg 03/15/21 21:00 03/16/21 08:33 Famotidine/Pf 20 Mg/2 Ml Vial IVPUSH 20 mg BID JOSE Administration Folic Acid 1 mg 03/16/21 09:00 03/16/21 08:32 Folic Acid 1 Mg Tablet PO 03/19/21 08:59 1 mg DAILY JOSE Administration Sodium Chloride 1,000 mls @ 100 mls/hr 03/15/21 20:15 03/16/21 03:42 Ns IVCONT 100 mls/hr .Q10H JOSE Administration Insulin Human Lispro 0 unit 03/15/21 21:00 03/16/21 11:53 Insulin Lispro 100 Unit/Ml 3 Ml Vial SUBCUT 2 unit QIDACHS JOSE Administration Protocol Medication 1 each 03/15/21 20:10 No Benzodiazepines MISCELLANE DAILY [facility] Multivitamins 1 tab 03/16/21 09:00 03/16/21 08:36 B-Complex With Vitamin C Tablet PO 1 tab DAILY JOSE Administration Phenobarbital 45 mg 03/16/21 09:00 03/16/21 08:31 Phenobarbital 15 Mg Tablet PO 03/17/21 21:01 45 mg BID JOSE Administration Protocol Phenobarbital 30 mg 03/18/21 09:00 Phenobarbital 30 Mg Tablet PO 03/19/21 21:01 BID JOSE Protocol Phenobarbital 15 mg 03/20/21 09:00 Phenobarbital 15 Mg Tablet PO 03/21/21 09:01 DAILY JOSE Protocol Sodium Chloride 3 ml 03/16/21 00:00 03/16/21 08:33 0.9 % Sodium Chloride Flush 3 Ml Syringe IVFLUSH 3 ml QSHIFT JOSE Administration Thiamine HCl 100 mg 03/16/21 09:00 03/16/21 08:32 Thiamine Hcl 100 Mg Tablet PO 03/19/21 08:59 100 mg DAILY JOSE Administration Labs CBC & Chem 7: 03/16/21 05:24 03/16/21 05:24 Labs: Laboratory Results - last 24 hr 03/15/21 03/15/21 03/15/21 16:33 16:33 16:33 WBC 5.0 RBC 3.95 L Hgb 12.3 L D Hct 34.3 L MCV 86.8 MCH 31.1 MCHC 35.9 RDW 14.1 Plt Count 82 L D MPV 8.9 L Immature Gran % (Auto) 0.2 Neut % (Auto) 78.2 H Lymph % (Auto) 14.7 L [place] % (Auto) 6.5 Eos % (Auto) 0.0 Baso % (Auto) 0.4 Lymph # (Auto) 0.7 L [place] # (Auto) 0.3 Eos # (Auto) 0.0 Baso # (Auto) 0.0 Abs Immat Gran (auto) 0.01 Absolute Neuts (auto) 3.9 Absolute Nucleated RBC 0.000 Nucleated RBC % (auto) 0.0 PT 13.0 INR 1.1 APTT 34.3 VBG pH VBG pCO2 VBG pO2 VBG HCO3 VBG O2 Saturation VBG Base Excess Sodium 132 L Potassium 4.0 Chloride 91 L Carbon Dioxide 20 L Anion Gap 25 H BUN 9 Creatinine 1.01 Estim Creat Clear Calc 71.0 Estimated GFR > 60 POC Glucose Random Glucose 426 H* Lactic Acid Lactic Acid Fup @ 2Hr Calcium 8.8 Magnesium Total Bilirubin Direct Bilirubin AST ALT Alkaline Phosphatase Lactate Dehydrogenase Troponin I High Sens Total Protein Albumin Lipase Urine Color Urine Appearance Urine pH Ur Specific [place] Urine Protein Urine Glucose (UA) Urine Ketones Urine Blood Urine Nitrite Ur Leukocyte Esterase Urine RBC Urine WBC Ur Squamous Epith Cells Urine Bacteria Urine Opiates Screen Ur Barbiturates Screen Ur Phencyclidine Scrn Ur Amphetamines Screen U Benzodiazepines Scrn Urine Cocaine Screen U Marijuana (THC) Screen Ethyl Alcohol Acetone, Qual Small H COVID-19 (KAYLA) COVID-19 [employer] 03/15/21 03/15/21 03/15/21 16:33 16:33 16:33 WBC RBC Hgb Hct MCV MCH MCHC RDW Plt Count MPV Immature Gran % (Auto) Neut % (Auto) Lymph % (Auto) [place] % (Auto) Eos % (Auto) Baso % (Auto) Lymph # (Auto) [place] # (Auto) Eos # (Auto) Baso # (Auto) Abs Immat Gran (auto) Absolute Neuts (auto) Absolute Nucleated RBC Nucleated RBC % (auto) PT INR APTT VBG pH VBG pCO2 VBG pO2 VBG HCO3 VBG O2 Saturation VBG Base Excess Sodium Potassium Chloride Carbon Dioxide Anion Gap BUN Creatinine Estim Creat Clear Calc Estimated GFR POC Glucose Random Glucose Lactic Acid 2.9 H* Lactic Acid Fup @ 2Hr Calcium Magnesium 1.2 L* Total Bilirubin 1.2 H Direct Bilirubin 0.6 H AST 28 ALT 20 Alkaline Phosphatase 164 H D Lactate Dehydrogenase 143 Troponin I High Sens < 3.5 Total Protein 7.3 D Albumin 4.0 D Lipase 44 Urine Color Urine Appearance Urine pH Ur Specific [place] Urine Protein Urine Glucose (UA) Urine Ketones Urine Blood Urine Nitrite Ur Leukocyte Esterase Urine RBC Urine WBC Ur Squamous Epith Cells Urine Bacteria Urine Opiates Screen Ur Barbiturates Screen Ur Phencyclidine Scrn Ur Amphetamines Screen U Benzodiazepines Scrn Urine Cocaine Screen U Marijuana (THC) Screen Ethyl Alcohol Acetone, Qual COVID-19 (KAYLA) COVID-19 [employer] 03/15/21 03/15/21 03/15/21 16:35 16:36 17:58 WBC RBC Hgb Hct MCV MCH MCHC RDW Plt Count MPV Immature Gran % (Auto) Neut % (Auto) Lymph % (Auto) [place] % (Auto) Eos % (Auto) Baso % (Auto) Lymph # (Auto) [place] # (Auto) Eos # (Auto) Baso # (Auto) Abs Immat Gran (auto) Absolute Neuts (auto) Absolute Nucleated RBC Nucleated RBC % (auto) PT INR APTT VBG pH 7.45 H VBG pCO2 30 VBG pO2 85 VBG HCO3 21 L VBG O2 Saturation 97.0 VBG Base Excess -1.4 Sodium Potassium Chloride Carbon Dioxide Anion Gap BUN Creatinine Estim Creat Clear Calc Estimated GFR POC Glucose 318 H Random Glucose Lactic Acid Lactic Acid Fup @ 2Hr Calcium Magnesium Total Bilirubin Direct Bilirubin AST ALT Alkaline Phosphatase Lactate Dehydrogenase Troponin I High Sens Total Protein Albumin Lipase Urine Color Urine Appearance Urine pH Ur Specific [place] Urine Protein Urine Glucose (UA) Urine Ketones Urine Blood Urine Nitrite Ur Leukocyte Esterase Urine RBC Urine WBC Ur Squamous Epith Cells Urine Bacteria Urine Opiates Screen Ur Barbiturates Screen Ur Phencyclidine Scrn Ur Amphetamines Screen U Benzodiazepines Scrn Urine Cocaine Screen U Marijuana (THC) Screen Ethyl Alcohol < 10 Acetone, Qual COVID-19 (KAYLA) COVID-[facility] [facility] [employer] [facility] 03/15/21 03/15/21 03/15/21 19:11 19:17 19:17 WBC RBC Hgb Hct MCV MCH MCHC RDW Plt Count MPV Immature Gran % (Auto) Neut % (Auto) Lymph % (Auto) [place] % (Auto) Eos % (Auto) Baso % (Auto) Lymph # (Auto) [place] # (Auto) Eos # (Auto) Baso # (Auto) Abs Immat Gran (auto) Absolute Neuts (auto) Absolute Nucleated RBC Nucleated RBC % (auto) PT INR APTT VBG pH VBG pCO2 VBG pO2 VBG HCO3 VBG O2 Saturation VBG Base Excess Sodium 132 L Potassium 4.0 Chloride 96 Carbon Dioxide 21 L Anion Gap 19 BUN 8 L Creatinine 0.83 Estim Creat Clear Calc 86.4 Estimated GFR > 60 POC Glucose Random Glucose 340 H Lactic Acid Lactic Acid Fup @ 2Hr 1.8 Calcium 7.9 L D Magnesium Total Bilirubin Direct Bilirubin AST ALT Alkaline Phosphatase Lactate Dehydrogenase Troponin I High Sens Total Protein Albumin Lipase Urine Color Urine Appearance Urine pH Ur Specific [place] Urine Protein Urine Glucose (UA) Urine Ketones Urine Blood Urine Nitrite Ur Leukocyte Esterase Urine RBC Urine WBC Ur Squamous Epith Cells Urine Bacteria Urine Opiates Screen Ur Barbiturates Screen Ur Phencyclidine Scrn Ur Amphetamines Screen U Benzodiazepines Scrn Urine Cocaine Screen U Marijuana (THC) Screen Ethyl Alcohol Acetone, Qual COVID-19 (KAYLA) Negative COVID-19 [employer] See Note 03/15/21 03/15/21 03/15/21 19:19 19:19 21:04 WBC RBC Hgb Hct MCV MCH MCHC RDW Plt Count MPV Immature Gran % (Auto) Neut % (Auto) Lymph % (Auto) [place] % (Auto) Eos % (Auto) Baso % (Auto) Lymph # (Auto) [place] # (Auto) Eos # (Auto) Baso # (Auto) Abs Immat Gran (auto) Absolute Neuts (auto) Absolute Nucleated RBC Nucleated RBC % (auto) PT INR APTT VBG pH VBG pCO2 VBG pO2 VBG HCO3 VBG O2 Saturation VBG Base Excess Sodium Potassium Chloride Carbon Dioxide Anion Gap BUN Creatinine Estim Creat Clear Calc Estimated GFR POC Glucose 285 H Random Glucose Lactic Acid Lactic Acid Fup @ 2Hr Calcium Magnesium Total Bilirubin Direct Bilirubin AST ALT Alkaline Phosphatase Lactate Dehydrogenase Troponin I High Sens Total Protein Albumin Lipase Urine Color YELLOW Urine Appearance CLEAR Urine pH 6.0 Ur Specific [place] 1.015 Urine Protein NEG Urine Glucose (UA) >=1000 H Urine Ketones 40 Urine Blood TRACE Urine Nitrite NEG Ur Leukocyte Esterase NEG Urine RBC 0-2 Urine WBC 0-2 Ur Squamous Epith Cells TRACE Urine Bacteria NONE Urine Opiates Screen Not Detected Ur Barbiturates Screen POSITIVE H Ur Phencyclidine Scrn Not Detected Ur Amphetamines Screen Not Detected U Benzodiazepines Scrn Not Detected Urine Cocaine Screen Not Detected U Marijuana (THC) Screen Not Detected Ethyl Alcohol Acetone, Qual COVID-19 (KAYLA) COVID-19 Clin Com 03/16/21 03/16/21 03/16/21 05:24 05:24 08:17 WBC 3.2 L RBC 3.30 L Hgb 10.4 L Hct 29.3 L MCV 88.8 MCH 31.5 MCHC 35.5 RDW 14.3 Plt Count 52 L D MPV 9.0 L Immature Gran % (Auto) 0.3 Neut % (Auto) 46.2 Lymph % (Auto) 44.0 H [place] % (Auto) 7.0 Eos % (Auto) 1.9 Baso % (Auto) 0.6 Lymph # (Auto) 1.4 [place] # (Auto) 0.2 Eos # (Auto) 0.1 Baso # (Auto) 0.0 Abs Immat Gran (auto) 0.01 Absolute Neuts (auto) 1.5 L Absolute Nucleated RBC 0.000 Nucleated RBC % (auto) 0.0 PT INR APTT VBG pH VBG pCO2 VBG pO2 VBG HCO3 VBG O2 Saturation VBG Base Excess Sodium 136 Potassium 3.3 Chloride 102 Carbon Dioxide 22 Anion Gap 15 BUN 7 L Creatinine 0.74 Estim Creat Clear Calc 96.9 Estimated GFR > 60 POC Glucose 245 H Random Glucose 242 H Lactic Acid Lactic Acid Fup @ 2Hr Calcium 7.6 L Magnesium 1.5 L Total Bilirubin Direct Bilirubin AST ALT Alkaline Phosphatase Lactate Dehydrogenase Troponin I High Sens Total Protein Albumin Lipase Urine Color Urine Appearance Urine pH Ur Specific [place] Urine Protein Urine Glucose (UA) Urine Ketones Urine Blood Urine Nitrite Ur Leukocyte Esterase Urine RBC Urine WBC Ur Squamous Epith Cells Urine Bacteria Urine Opiates Screen Ur Barbiturates Screen Ur Phencyclidine Scrn Ur Amphetamines Screen U Benzodiazepines Scrn Urine Cocaine Screen U Marijuana (THC) Screen Ethyl Alcohol Acetone, Qual COVID-19 (KAYLA) COVID-[facility] 03/16/21 11:09 WBC RBC Hgb Hct MCV MCH MCHC RDW Plt Count MPV Immature Gran % (Auto) Neut % (Auto) Lymph % (Auto) [place] % (Auto) Eos % (Auto) Baso % (Auto) Lymph # (Auto) [place] # (Auto) Eos # (Auto) Baso # (Auto) Abs Immat Gran (auto) Absolute Neuts (auto) Absolute Nucleated RBC Nucleated RBC % (auto) PT INR APTT VBG pH VBG pCO2 VBG pO2 VBG HCO3 VBG O2 Saturation VBG Base Excess Sodium Potassium Chloride Carbon Dioxide Anion Gap BUN Creatinine Estim Creat Clear Calc Estimated GFR POC Glucose 197 H Random Glucose Lactic Acid Lactic Acid Fup @ 2Hr Calcium Magnesium Total Bilirubin Direct Bilirubin AST ALT Alkaline Phosphatase Lactate Dehydrogenase Troponin I High Sens Total Protein Albumin Lipase Urine Color Urine Appearance Urine pH Ur Specific [place] Urine Protein Urine Glucose (UA) Urine Ketones Urine Blood Urine Nitrite Ur Leukocyte Esterase Urine RBC Urine WBC Ur Squamous Epith Cells Urine Bacteria Urine Opiates Screen Ur Barbiturates Screen Ur Phencyclidine Scrn Ur Amphetamines Screen U Benzodiazepines Scrn Urine Cocaine Screen U Marijuana (THC) Screen Ethyl Alcohol Acetone, Qual COVID-19 ([facility]AYLA) COVID-[facility] [facility] Quality Stroke Does the patient have a stroke diagnosis?: No VTE Prior VTE?: No VTE Risk Level:: Medical - moderate - high VTE Device Contraindication: N/A - Device Ordered VTE Drug Contraindication: Treatment Not Indicated Assessment and Plan (1) Alcoholic gastritis: Status: Acute Assessment and Plan: 60-year-old male with a past medical history of diabetes, alcohol abuse, tobacco dependence, thrombocytopenia, pancreatic pseudocyst presented to the hospital with a chief complaint of 1/nausea vomiting and abdominal comfort; admitted for alcoholic gastritis. fall: mechanical: CT head showed no acute intracranial abnormality; has scalp h ematoma. PT eval tomorrow Alcoholic Gastritis: Lipase is normal limits; Pain control. Pepcid IV b.i.d.. Advance diet Alcohol abuse high risk for withdrawal: Patient on phenobarb protocol. Thi amine, folate: Multivitamins. CARE consult Hypomagnesemia--d/t chronic alcohol se, IV replacement and repeat tomorrrow Diarrhea--check cdif Hx chronic Thrombocytopenia: Will continue to monitor. No bleeding DVT prophylaxis: SCD boots Code status: Full code
--- NOTE | 2021-03-16 14:21 | MHC.RECOVSUP ---
Recovery Support note: Patient is a 60 year old Bangladeshi speaking male who [place] [facility] [place] due to abdominal pain, nausea and vomiting and was medically admitted. This narrative writer met with patient in to discuss his alcohol use and recovery. Patient reports drinking since his last hospital discharge. Patient reports he was previously drinking 10 nips a day and is now down to 5. Patient reports he cannot find his phone and he has been unable to engage in services as a result. Patient reports plans to get a new phone so that he can utilize [facility]. Patient is optimistic that with this support he will be able to maintain sobriety. Patient acknowledges the negative effect his alcohol use has on his health. Patient reports he started drinking 5 years ago after the loss of his partner. Patient reports spending much of this year incarcerated and that he relapsed shortly after release. Patient reports he is interested in grief counseling and that he wants to get restarted on his Seroquel. Patient provided with a list of therapy agencies and recommended he reach out to [facility] when he gets his new phone to re-establish care with them. Patient reports therapy and psychiatry have been helpful in the past. Patient reports he is not interested in meeting with a motor coach chauffeur at this time. Discussed case with patient's RN.
[2021-03-16] MEDS: Magnesium Sulfate/H2O 2 GM/50 ML PIGGYBACK IV (14:26)
[2021-03-16 15:12] VITALS: BP 129/76; PULSE 67; RESP 17; TEMP 36.2; O2SAT 100
[2021-03-16 16:42] LABS: Glucose, Whole Blood 340 mg/dL (60-115)
[2021-03-16 19:28] VITALS: BP 103/77; PULSE 73; RESP 17; TEMP 36.4; O2SAT 99
[2021-03-16 20:23] LABS: Glucose, Whole Blood 281 mg/dL (60-115)
[2021-03-16 23:06] VITALS: BP 122/89; PULSE 68; RESP 18; TEMP 36.6; O2SAT 98
[2021-03-17] MEDS: Nicotine 21 MG PATCH.TD24 TRANSDERMA (01:32)
[2021-03-17] MEDS: 0.9 % Sodium Chloride 1,000 ML 100 ML IVCONT (01:32)
[2021-03-17 01:34] LABS: CDiff Gene PCR NEGATIVE (Negative)
[2021-03-17 03:35] VITALS: BP 122/72; PULSE 60; RESP 20; TEMP 36.8; O2SAT 99
[2021-03-17 07:18] LABS: Glucose, Whole Blood 292 mg/dL (60-115)
[2021-03-17 07:23] VITALS: BP 107/68; PULSE 65; RESP 18; TEMP 36.2; O2SAT 99
[2021-03-17] MEDS: Thiamine HCL 100 MG TABLET PO (07:58)
[2021-03-17] MEDS: Famotidine/PF 20 MG/2 ML VIAL IVPUSH (07:59)
[2021-03-17] MEDS: Insulin Lispro 100 UNIT/ML 3 ML VIAL SUBCUT ×2 (07:59→12:44)
[2021-03-17] MEDS: 0.9 % Sodium Chloride Flush 3 ML SYRINGE IVFLUSH (07:59)
[2021-03-17] MEDS: Folic Acid 1 MG TABLET PO (07:59)
[2021-03-17 09:20] VITALS: BP 107/68; PULSE 65; O2SAT 99
[2021-03-17 11:10] VITALS: BP 102/62; PULSE 64; RESP 18; TEMP 35.9; O2SAT 98
[2021-03-17 11:18] LABS: Glucose, Whole Blood 233 mg/dL (60-115)
[2021-03-17] MEDS: Loperamide HCl 2 MG CAPSULE PO (12:45)
--- NOTE | 2021-03-17 13:32 | PM.DS ---
DS: Providers Provider Date of Service: 03/17/21 Date of admission: 03/15/21 20:09 Primary care physician: Jose White MD Consults: 03/16/21 12:15 Consult to Care Team Routine Comment: Reason for consultation: alcoholism DS: Diagnosis Discharge Diagnosis (1) Alcoholic gastritis: Status: Acute DS: Medications Discharge Medications Home Medications: Home Medications Medication Instructions Recorded Confirmed Lantus Solostar U-100 Insulin 10 unit SUBCUT BEDTIME 02/27/21 02/27/21 gabapentin 1 cap PO TID 02/27/21 02/27/21 Previous Rx's Medication Instructions Recorded insulin lispro 100 unit/mL 12 unit SUBCUT TID 30 Days #15 ml 12/30/20 subcutaneous pen B-complex with vitamin C 1 tab PO DAILY #30 tab 03/04/21 acamprosate 666 mg PO TID #180 tab 03/04/21 ferrous sulfate 324 mg PO DAILY #30 tab 03/04/21 magnesium oxide 800 mg PO BIDPC #120 tab 03/04/21 nicotine (polacrilex) 2 mg BUCCAL Q1H PRN #100 ea 03/04/21 omeprazole 20 mg PO BID@0630,1630 #60 cap 03/04/21 loperamide [Anti-Diarrheal 2 mg PO Q6H PRN #14 tab 03/17/21 (loperamide)] DS: Summary Hospital Course Hospital Course: 60-year-old male with a past medical history of diabetes, alcohol abuse, tobacco dependence, thrombocytopenia, pancreatic pseudocyst presented to the hospital with a chief complaint of nausea vomiting and abdominal comfort; admitted for alcoholic gastritis. He aparently had also sustained mechanical fall a sustained a scalp hematoma. He was admitted for furthe management. fall: mechanical: CT head showed no acute intracranial abnormality; has scalp hematoma and no intracranial injury. PT saw him and recommend home with services. [facility]. Alcoholic Gastritis: Treated with hdyration, Pepcid and resolved and again discouraged from drinking. Alcohol abuse high risk for withdrawal: Was started on phenobarbital but did not develop overt alcohol withdrawal Hypomagnesemia--d/t chronic alcohol use, corrected, was 1.5 prior day was going to recheck, removed his iv and din't to be stuck again, not even for lab check and wanted to go home Diarrhea--C dif negative, and given imodium Hx chronic Thrombocytopenia: Will continue to monitor. No bleeding complication Diabetes--to resume usual meds Final diagnoses: Alcohol gastritis Scalp hematoma Mechanical fall Hypomagnesemia Diabetes Diarrhea home with services Time Spent with Patient Time attestation: Total time spent providing and/or coordinating discharge services: Discharge coordination time: Greater than 30 minutes Quality: Stroke Does the patient have a stroke diagnosis?: No Physical Exam Vital Signs: Vital Signs: Last Vital Signs Temp 96.7 F L 03/17/21 11:10 Pulse 64 03/17/21 11:10 Resp 18 03/17/21 11:10 BP 102/62 03/17/21 11:10 Pulse Ox 98 03/17/21 11:10 Body Mass Index 25.0 Const: Other: General: AO X 3, no acute distress Resp: CTA bilateral CVS: S1,S2,RRR GI: +BS, NT, no distention Skin: No rash Neuro: motor grossly intact Psych: appropriate affect DS: Data Data Completed and Pending Completed studies during hospitalization [Text1]: Procedures Detoxification Services for Substance Abuse Treatment (02/28/21) Transfusion of Nonautologous Platelets into Peripheral Vein, Percutaneous Approach (09/12/20) Labs on day of discharge: Laboratory Results - last 24 hr 03/16/21 03/16/21 03/16/21 16:29 16:39 20:15 POC Glucose 340 H 281 H C. difficile Tox B Gene NEGATIVE 03/17/21 03/17/21 07:10 11:09 POC Glucose 292 H 233 H C. difficile Tox B Gene Discharge Plan Discharge Anticipated Discharge Date/Time: 03/16/21 12:01 Patient Disposition: Home, Self-Care Discharge Diagnosis: Alcoholic gastritis Referrals: Jose White MD [Primary Care Provider] - 1 Week (You have been placed on the waiting list for a primary care appointment with Dr. White. You should receive a phone call from your doctor's office. ) Discharge Medications: New loperamide [Anti-Diarrheal (loperamide)] 2 mg tablet 2 mg PO Q6H PRN (Reason: loose stool) Qty: 14 RF: 0 Continued insulin lispro [Admelog SoloStar U-100 Insulin] 100 unit/mL insulin pen 12 unit subcut TID 30 Days Qty: 15 RF: 1 Lantus Solostar U-100 Insulin 100 unit/mL (3 mL) insulin pen 10 unit subcut BEDTIME RF: 0 gabapentin 400 mg capsule 1 cap PO TID RF: 0 magnesium oxide 400 mg (241.3 mg magnesium) Tablet 800 mg PO BIDPC Qty: 120 RF: 0 omeprazole 20 mg Capsule,Delayed Release(Dr/Ec) 20 mg PO BID@0630,1630 Qty: 60 RF: 0 B-complex with vitamin C Tablet 1 tab PO DAILY Qty: 30 RF: 0 ferrous sulfate 324 mg (65 mg iron) Tablet,Delayed Release (Dr/Ec) 324 mg PO DAILY Qty: 30 RF: 0 nicotine (polacrilex) 2 mg Mini Lozenge 2 mg buccal Q1H PRN (Reason: Nicotine Cravings) Qty: 100 RF: 0 acamprosate 333 mg tablet,delayed release (DR/EC) 666 mg PO TID Qty: 180 RF: 0 Discharge Orders: Discharge Order (Routine); Ordered 03/17/21 Ordered By: Lorenzo Yi Diet: advance to usual diet and diabetic diet Activity on Discharge: As tolerated Stand Alone Forms: Patient Portal Discharge page Care Plan Goals: to staty sober Health Concerns: alcohol dependency Plan of Treatment: avoid alcohol, take your medications as recommended and follow up with your Doctor in a week Assessment: as above Discharge Date/Time: 03/17/21 13:57
--- NOTE | 2021-03-17 13:48 | MHC.CM.PN ---
Male 60 DX ETOH is discharged today to home via [facility]. No services ordered.
--- NOTE | 2021-03-17 15:01 | W.MHC.F2F ---
Service Date Service Date: 03/17/21 Encounter Date of encounter: 03/17/21 Reasons for Services Reason for care home: neurological assessment Reason for physical therapy: home safety and mobility and gait/transfer training Homebound: Leaving the home is medically contraindicated at this time without the asist of a device and/or another person due th the listed conditions above and below. Homebound supporting statement: Homebound due to unsteady gait resulting in fall with scap hematoma and therefore needs the assitance of another person Certification: Based on the above findings, I certify that this patient is confined to the home and needs intermittent care home care, physical therapy and/or speech therapy, or continues to need occupational therapy. The patient is under my care, and I have initiated the establishment of the plan of care. The patient will be followed by a physician who will periodically review the plan of care.
== END 2021-03-17 13:57 | disposition home or self-care (01) | DRG 241 ==
LOC: HO.ED 20:03 → HO.EDOVER 21:29 → HO.IMC 03-16 02:02
PROVIDERS: Admitting Provider Hospitalist; Emergency Provider Emergency Medicine; PCP Internal Medicine; Visit Provider Internal Medicine
DX: K29.20 Alcoholic gastritis without bleeding (principal); D69.6 Thrombocytopenia, unspecified; F17.210 Nicotine dependence, cigarettes, uncomplicated; E83.42 Hypomagnesemia; F10.10 Alcohol abuse, uncomplicated; Z71.6 Tobacco abuse counseling; S00.03XA Contusion of scalp, initial encounter; W18.30XA Fall on same level, unspecified, initial encounter; Y93.9 Activity, unspecified; Y92.9 Unspecified place or not applicable; Y99.9 Unspecified external cause status; Z20.822 Contact with and (suspected) exposure to COVID-19; Z79.4 Long term (current) use of insulin; Z79.899 Other long term (current) drug therapy
CPT/HCPCS: 36415; 70450; 73564; 80048; 80076; 80307; 81001; 82009; 82077; 82803; 82947; 83605; 83615; 83690; 83735; 84484; 85025; 85610; 85730; 87493; 87635; 93005; 97162; 97165; 99285; J2060; J2560; J3411; J3475

== ENCOUNTER 2021-03-21 02:24 | Emergency (ER) | payer OTHER, SELFPAY ==
--- NOTE | ~2021-03-21 | XR_ITS ---
EXAMINATION: XR KNEE, LEFT CLINICAL INFORMATION: Fall. Pain. COMPARISON: 03/15/2021 TECHNIQUE: Four views of the left knee. FINDINGS: No acute fracture or dislocation. 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 Articular surfaces are smooth. No joint effusion. XR/XR knee LT 4V IMPRESSION: No acute fracture or dislocation.
[2021-03-21 02:29] VITALS: BP 125/91; PULSE 98; RESP 18; TEMP 36.8; O2SAT 99; BMI 24.2
--- NOTE | 2021-03-21 03:15 | ED.GENADULT ---
HPI - General Adult General Chief complaint: Fall Stated complaint: HIP PAIN DUE TO FALL THIS MORNING AND SOB Time Seen by Provider: 03/21/21 03:15 Source: patient Mode of arrival: EMS History of Present Illness HPI narrative: 60-year-old male, history of diabetes who presents via EMS with complaints of a mechanical fall into tall grass and has complaints of left knee pain as well as abdominal discomfort with nausea. Patient states that he drinks alcohol regularly and has not had a drink for 2 days. He states that he forgot to take his diabetic medication today but otherwise denies fever, chills, shortness of breath, chest pain/palpitations. Related Data Home Medications Medication Instructions Recorded Confirmed gabapentin 400 mg capsule 1 cap PO TID 02/27/21 02/27/21 insulin glargine 100 unit/mL (3 10 unit SUBCUT BEDTIME 02/27/21 02/27/21 mL) subcutaneous pen (Lantus Solostar U-100 Insulin) Previous Rx's Medication Instructions Recorded insulin lispro 100 unit/mL 12 unit SUBCUT TID 30 Days #15 ml 12/30/20 subcutaneous pen (Admelog SoloStar U-100 Insulin lispro) B-complex with vitamin C 1 tab PO DAILY #30 tab 03/04/21 acamprosate 333 mg tablet,delayed 666 mg PO TID #180 tab 03/04/21 release ferrous sulfate 324 mg (65 mg 324 mg PO DAILY #30 tab 03/04/21 iron) tablet,delayed release magnesium oxide 400 mg (241.3 mg 800 mg PO BIDPC #120 tab 03/04/21 magnesium) tablet nicotine (polacrilex) 2 mg buccal 2 mg BUCCAL Q1H PRN #100 ea 03/04/21 mini lozenge omeprazole 20 mg capsule,delayed 20 mg PO BID@0630,1630 #60 cap 03/04/21 release loperamide 2 mg tablet 2 mg PO Q6H PRN #14 tab 03/17/21 (Anti-Diarrheal (loperamide)) Allergies Allergy/AdvReac Type Severity Reaction Status Date / Time acamprosate Allergy Unknown redness Verified 06/11/20 08:50 and itching Docusate Sodium Allergy Unknown Migraines Verified 07/16/20 14:05 Review of Systems Review of Systems: Pertinent positives and negatives as stated in HPI 10 point review of systems is otherwise negative. PMFSH Past Medical History Source: nursing notes reviewed Medical History Acidosis, lactic Acute dehydration Acute hyperglycemia Alcohol abuse Alcohol dependence with withdrawal Alcohol use disorder, severe, dependence Attention deficit disorder Degenerative disc disease, cervical Depression Diabetes mellitus Dyslipidemia History of substance abuse Hypomagnesemia Hypotestosteronism Osteoarthritis of right hand Pancreatitis Prolonged QT interval Thrombocytopenia Vomiting Surgical History History of surgery Family History Family History Father Cancer Mother Cancer Diabetes Social History Social History Household Members: None Housing: Apartment Do you presently have visiting nurse or other home services: No Unable to assess alcohol history related to: Refusing to respond Alcohol intake: current Alcohol intake frequency: 3 or more drinks per day Alcohol type: wine and hard liquor Patient Tobacco Use Status: Current everyday Tobacco user Tobacco use type: Cigarette Cigarette Packs Per Day: 2 Cigarettes Per Day: 40.0 Substance Use Type: Marijuana Advance Directives: No service: No Current occupational status: unemployed and disabled Current occupation: Right Handed Physical Exam Vital Signs: Vital Signs: Last Vital Signs Temp 98.2 F 03/21/21 02:29 Pulse 72 03/21/21 06:44 Resp 16 03/21/21 06:44 BP 135/73 03/21/21 06:44 Pulse Ox 100 03/21/21 06:44 Body Mass Index 24.2 VITAL SIGNS: Reviewed. GENERAL: Chronically ill, in no acute distress. HEAD: Normocephalic/atraumatic EYES: PERRLA, EOMI EARS: Ext canals without abnormality OROPHARYNX: no oral lesions noted, posterior pharynx clear, dry mucosa NECK: No cervical spine tenderness on palpation, patient remove C-collar that EMS had put in place LUNGS: Normal breath sounds. No adventitious sounds or accessory muscle use. SpO2<98> CARDIOVASCULAR: Regular rate and rhythm without noted murmurs, no JVD or lower extremity edema. ABDOMEN: Soft, abdominal discomfort without rebound primarily in lower abdomen, non-distended with bowel sounds. LEFT KNEE: No obvious trauma to the knee, no erythema/swelling/abrasion/ecchymosis, sensation is intact BILATERAL FEET: Poor hygiene and onychomycosis noted otherwise no ulcerations and good capillary refill. SKIN: Inspection of the skin reveals no rashes, ulcerations, jaundice, pallor, or petechiae. NEUROLOGIC: Alert and oriented x 4. Strength and sensation to light touch were grossly intact x 4. Course Course Course Narrative: 60-year-old male with history and clinical presentation on review of prior documentation had similar presentation with left knee pain/fall/no LOC on 03/17 and was admitted that time for lactic acidosis. Patient complained of abdominal discomfort will receive IV fluids and is not currently hyperglycemic, to get CT scan as noted demonstrable evidence to support acute pancreatitis and on review of chart patient has chronic pseudocyst. Review of all investigations significant for hypo magnesemia which was repleted with 1 g and a noted likely ketoacidosis secondary to alcohol consumption as his sugar is within normal limits. Patient received 2 L of IV fluids and on repeat chemistries there is trending improvement in the acidosis, he is tolerating oral intake, and patient is feeling much better. He will be discharged in stable condition with instructions to continue fluid hydration and follow-up with his primary care provider. Medical Decision Making Lab Data Result diagrams: 03/21/21 03:34 03/21/21 06:12 Labs: Lab Results 03/21/21 03/21/21 03/21/21 Range/Units 03:29 03:29 03:33 WBC (4.8-10.8) X10*3/uL RBC (4.60-5.80) X10*6/uL Hgb (14.0-18.0) g/dl Hct (42-52) % MCV (80-98) fL MCH (27.0-33.0) pg MCHC (31.0-36.0) g/dl RDW (11.0-16.0) % Plt Count (160-400) X10*3/uL MPV (9.4-12.4) fL Immature Gran % (Auto) (0.0-0.4) % Neut % (Auto) (45-73) % Lymph % (Auto) (20-40) % [place] % (Auto) (2-11) % Eos % (Auto) (0-4) % Baso % (Auto) (0-2) % Lymph # (Auto) (1.2-4.9) X10*3/uL [place] # (Auto) (0.1-1.2) X10*3/uL Eos # (Auto) (0.0-0.4) X10*3/uL Baso # (Auto) (0.0-0.2) X10*3/uL Abs Immat Gran (auto) (0.00-0.03) X10*3/uL Absolute Neuts (auto) (2.0-8.3) X10*3/uL Absolute Nucleated RBC (0.0-0.012) X10*3/uL Nucleated RBC % (auto) (0.0-0.2) /100WBC Sodium 140 (135-145) mmol/L Potassium 3.6 (3.3-5.1) mmol/L Chloride 101 (96-108) mmol/L Carbon Dioxide 15 L (22-29) mmol/L Anion Gap 28 H (12-20) BUN 11 D (9-16) mg/dL Creatinine 0.79 (0.5-1.4) mg/dL Estim Creat Clear Calc 90.8 Estimated GFR > 60 Random Glucose 110 D (60-115) mg/dL Lactic Acid (0.5-2.0) mmol/L Calcium 8.8 D (8.4-10.2) mg/dL Magnesium 1.4 L* (1.6-2.6) mg/dL Total Bilirubin 0.6 (0.0-1.0) mg/dL AST 34 (5-37) U/L ALT 19 (0-40) U/L Alkaline Phosphatase 123 H D (39-117) U/L Total Protein 7.1 (6.5-8.0) g/dL Albumin 3.9 (3.5-5.0) g/dL Lipase 32 (8-78) U/L Urine Color YELLOW Urine Appearance CLEAR Urine pH 6.0 (5.0-8.0) Ur Specific [place] 1.025 (1.005-1.025) Urine Protein TRACE (NEG-TRACE) MG/DL Urine Glucose (UA) NEG (NEG) MG/DL Urine Ketones >=80 (NEG) MG/DL Urine Blood TRACE (NEG) Urine Nitrite NEG (NEG) Ur Leukocyte Esterase NEG (NEG) Urine RBC 0-2 (0) /HPF Urine WBC 0-2 (0-4) /HPF Ur Squamous Epith Cells 1+ /LPF Urine Bacteria NONE /LPF Hyaline Casts 15-29 /LPF Urine Mucus TRACE /LPF Ethyl Alcohol < 10 mg/dL Acetone, Qual Small H (Negative) 03/21/21 03/21/21 03/21/21 Range/Units 03:34 04:34 06:12 WBC 5.7 (4.8-10.8) X10*3/uL RBC 3.90 L (4.60-5.80) X10*6/uL Hgb 12.1 L (14.0-18.0) g/dl Hct 35.4 L D (42-52) % MCV 90.8 (80-98) fL MCH 31.0 (27.0-33.0) pg MCHC 34.2 (31.0-36.0) g/dl RDW 14.6 (11.0-16.0) % Plt Count 70 L D (160-400) X10*3/uL MPV 9.1 L (9.4-12.4) fL Immature Gran % (Auto) 0.5 H (0.0-0.4) % Neut % (Auto) 67.9 (45-73) % Lymph % (Auto) 22.0 (20-40) % [place] % (Auto) 7.9 (2-11) % Eos % (Auto) 1.2 (0-4) % Baso % (Auto) 0.5 (0-2) % Lymph # (Auto) 1.3 (1.2-4.9) X10*3/uL [place] # (Auto) 0.5 (0.1-1.2) X10*3/uL Eos # (Auto) 0.1 (0.0-0.4) X10*3/uL Baso # (Auto) 0.0 (0.0-0.2) X10*3/uL Abs Immat Gran (auto) 0.03 (0.00-0.03) X10*3/uL Absolute Neuts (auto) 3.9 (2.0-8.3) X10*3/uL Absolute Nucleated RBC 0.000 (0.0-0.012) X10*3/uL Nucleated RBC % (auto) 0.0 (0.0-0.2) /100WBC Sodium 139 (135-145) mmol/L Potassium 3.8 (3.3-5.1) mmol/L Chloride 104 (96-108) mmol/L Carbon Dioxide 16 L (22-29) mmol/L Anion Gap 23 H (12-20) BUN 11 (9-16) mg/dL Creatinine 0.78 (0.5-1.4) mg/dL Estim Creat Clear Calc 92.0 Estimated GFR > 60 Random Glucose 129 H (60-115) mg/dL Lactic Acid 1.6 (0.5-2.0) mmol/L Calcium 8.1 L D (8.4-10.2) mg/dL Magnesium 1.8 (1.6-2.6) mg/dL Total Bilirubin 0.6 (0.0-1.0) mg/dL AST 30 (5-37) U/L ALT 17 (0-40) U/L Alkaline Phosphatase 115 (39-117) U/L Total Protein 6.6 (6.5-8.0) g/dL Albumin 3.7 (3.5-5.0) g/dL Lipase (8-78) U/L Urine Color Urine Appearance Urine pH (5.0-8.0) Ur Specific [place] (1.005-1.025) Urine Protein (NEG-TRACE) MG/DL Urine Glucose (UA) (NEG) MG/DL Urine Ketones (NEG) MG/DL Urine Blood (NEG) Urine Nitrite (NEG) Ur Leukocyte Esterase (NEG) Urine RBC (0) /HPF Urine WBC (0-4) /HPF Ur Squamous Epith Cells /LPF Urine Bacteria /LPF Hyaline Casts /LPF Urine Mucus /LPF Ethyl Alcohol mg/dL Acetone, Qual (Negative) Discharge Plan Discharge Clinical Impression: Alcoholic ketoacidosis, Fall Patient Disposition: Home, Self-Care Instructions: Alcohol Dependence (ED), Knee Pain (ED) Additional Instructions: 1. Increase water intake. 2. Resume prescribed medications. 3. Follow-up with your primary care provider in the next 2-3 days for re-evaluation. Return to the ER for acute worsening of symptoms. Prescriptions: No Action insulin lispro [Admelog SoloStar U-100 Insulin] 100 unit/mL insulin pen 12 unit subcut TID 30 Days Qty: 15 RF: 1 Lantus Solostar U-100 Insulin 100 unit/mL (3 mL) insulin pen 10 unit subcut BEDTIME RF: 0 gabapentin 400 mg capsule 1 cap PO TID RF: 0 magnesium oxide 400 mg (241.3 mg magnesium) Tablet 800 mg PO BIDPC Qty: 120 RF: 0 omeprazole 20 mg Capsule,Delayed Release(Dr/Ec) 20 mg PO BID@0630,1630 Qty: 60 RF: 0 B-complex with vitamin C Tablet 1 tab PO DAILY Qty: 30 RF: 0 ferrous sulfate 324 mg (65 mg iron) Tablet,Delayed Release (Dr/Ec) 324 mg PO DAILY Qty: 30 RF: 0 nicotine (polacrilex) 2 mg Mini Lozenge 2 mg buccal Q1H PRN (Reason: Nicotine Cravings) Qty: 100 RF: 0 acamprosate 333 mg tablet,delayed release (DR/EC) 666 mg PO TID Qty: 180 RF: 0 loperamide [Anti-Diarrheal (loperamide)] 2 mg tablet 2 mg PO Q6H PRN (Reason: loose stool) Qty: 14 RF: 0 Referrals: Jose White MD [Primary Care Provider] - 2 days
[2021-03-21 03:26] VITALS: BP 141/98; PULSE 95; RESP 18; O2SAT 98
[2021-03-21 03:38] LABS: Basophils Percent Auto 0.5 % (0-2); Eosinophils Absolute Auto 0.1 X10*3/uL (0.0-0.4); Eosinophils Percent Auto 1.2 % (0-4); Hematocrit 35.4 % (42-52); Hemoglobin 12.1 g/dl (14.0-18.0); Imm Gran Abs Auto 0.03 X10*3/uL (0.00-0.03); Imm Gran Pct Auto 0.5 % (0.0-0.4); Lymphocytes Absolute Auto 1.3 X10*3/uL (1.2-4.9); Mean Corpuscular HGB Conc 34.2 g/dl (31.0-36.0); Mean Corpuscular Volume 90.8 fL (80-98); Mean Platelet Volume 9.1 fL (9.4-12.4); Monocytes Absolute Auto 0.5 X10*3/uL (0.1-1.2); Monocytes Percent Auto 7.9 % (2-11); Neutrophils Absolute Auto 3.9 X10*3/uL (2.0-8.3); Neutrophils Percent Auto 67.9 % (45-73); Red Cell Distribution Width 14.6 % (11.0-16.0); White Blood Count 5.7 X10*3/uL (4.8-10.8)
[2021-03-21 03:39] LABS: MANUAL DIFF FLAG NO
[2021-03-21 03:42] LABS: Platelet Count 70 X10*3/uL (160-400)
[2021-03-21 03:46] LABS: Glucose Urine UA NEG (NEG); Leukocyte Esterase Urine NEG (NEG); Nitrite Urine NEG (NEG); Specific Gravity - Urine 1.025 (1.005-1.025); UACC Culture Trigger NO; Urine Blood TRACE (NEG); Urine Ketones >=80 MG/DL (NEG); Urine Protein TRACE MG/DL (NEG-TRACE)
[2021-03-21 03:49] LABS: Appearance Urine CLEAR; Color Urine YELLOW
[2021-03-21 03:56] LABS: Acetone, serum QL Small (Negative)
[2021-03-21 04:04] LABS: Mucus Urine TRACE /LPF; RBC Urine 0-2 /HPF (0); Squamous Epithelial Cell Urine 1+ /LPF; WBC Urine 0-2 /HPF (0-4)
[2021-03-21 04:10] LABS: Alanine Aminotransferase 19 U/L (0-40); Albumin Level 3.9 g/dL (3.5-5.0); Alkaline Phosphatase 123 U/L (39-117); Anion Gap 28 (12-20); Aspartate Amino Transferase 34 U/L (5-37); Bilirubin Total 0.6 mg/dL (0.0-1.0); Blood Urea Nitrogen 11 mg/dL (9-16); Calcium 8.8 mg/dL (8.4-10.2); Carbon Dioxide 15 mmol/L (22-29); Chloride 101 mmol/L (96-108); Creatinine Clr Calc Pharmacy 90.8; Estimated Glomerular Filt Rate > 60; Glucose Random 110 mg/dL (60-115); Lipase 32 U/L (8-78); Magnesium 1.4 mg/dL (1.6-2.6); Potassium 3.6 mmol/L (3.3-5.1); Sodium 140 mmol/L (135-145); Total Protein 7.1 g/dL (6.5-8.0)
[2021-03-21] MEDS: Acetaminophen 325 MG TABLET 975 MG PO (04:36)
[2021-03-21] MEDS: Magnesium Sulfate/D5W 1 GM/100 ML PIGGYBACK IV (04:39)
[2021-03-21] MEDS: 0.9 % Sodium Chloride 1,000 ML 999 ML IV ×2 (04:42→04:47)
[2021-03-21 04:45] VITALS: BP 124/85; PULSE 85; RESP 16; O2SAT 97
[2021-03-21 04:46] LABS: Ethanol < 10 mg/dL
[2021-03-21 04:53] LABS: Lactic Acid 1.6 mmol/L (0.5-2.0)
[2021-03-21 05:47] VITALS: BP 103/76; PULSE 74; RESP 16; O2SAT 99
[2021-03-21 06:44] VITALS: BP 135/73; PULSE 72; RESP 16; O2SAT 100
[2021-03-21 06:57] LABS: Alanine Aminotransferase 17 U/L (0-40); Albumin Level 3.7 g/dL (3.5-5.0); Alkaline Phosphatase 115 U/L (39-117); Anion Gap 23 (12-20); Aspartate Amino Transferase 30 U/L (5-37); Bilirubin Total 0.6 mg/dL (0.0-1.0); Blood Urea Nitrogen 11 mg/dL (9-16); Calcium 8.1 mg/dL (8.4-10.2); Carbon Dioxide 16 mmol/L (22-29); Chloride 104 mmol/L (96-108); Estimated Glomerular Filt Rate > 60; Glucose Random 129 mg/dL (60-115); Magnesium 1.8 mg/dL (1.6-2.6); Potassium 3.8 mmol/L (3.3-5.1); Sodium 139 mmol/L (135-145); Total Protein 6.6 g/dL (6.5-8.0)
[2021-03-21] MEDS: Lidocaine HCl Viscous 2 % 15 ML SOLUTION 10 ML MUCOUS MEM (07:57)
[2021-03-21] MEDS: Nicotine 21 MG PATCH.TD24 TRANSDERMA (07:57)
[2021-03-21] MEDS: Magnesium Hydrox/Alum Hydrox 30 ML ORAL.SUSP PO (07:57)
== END 2021-03-21 08:36 | disposition home or self-care (01) ==
PROVIDERS: Emergency Provider Student in an Organized Health Care Education/Training Program; PCP Internal Medicine
DX: E87.2 Acidosis (principal); F10.20 Alcohol dependence, uncomplicated; Y90.0 Blood alcohol level of less than 20 mg/100 ml; E11.9 Type 2 diabetes mellitus without complications; M25.562 Pain in left knee; F17.210 Nicotine dependence, cigarettes, uncomplicated; Z79.4 Long term (current) use of insulin
CPT/HCPCS: 36415; 73564; 80053; 81001; 82009; 82077; 83605; 83690; 83735; 85025; 96361; 96365; 96375; 99284; J2405; J3475

== ENCOUNTER 2021-03-24 00:26 | Emergency (ER) | payer OTHER, SELFPAY ==
[2021-03-24] VITALS (9 sets, daily range): BP systolic 99–133; BP diastolic 65–91; PULSE 67–103; RESP 13–19; TEMP 36.4–37.4; O2SAT 94–100; BMI 25.0
--- NOTE | ~2021-03-24 | CT_ITS ---
EXAMINATION: CT HEAD WITHOUT CONTRAST CT CERVICAL SPINE WITHOUT CONTRAST CLINICAL INFORMATION: Fall COMPARISON: 03/15/2021, 11/03/2019 and 10/04/2019 TECHNIQUE: Multidetector CT imaging of the head and cervical spine was performed without the use of intravenous contrast. Multiplanar reformats are reviewed. This CT examination was performed using dose optimization techniques as appropriate, variously including the following: *Automated exposure control *Adjustment of mA and/or kV according to patient size (this includes techniques or standardized protocols for targeted exams where dose is matched to indication/reason for exam; i.e. extremities or head) *Use of iterative reconstruction technique DLP: 1120 mGy-cm. FINDINGS: There is no evidence of acute intracranial hemorrhage or territorial infarction. No abnormal mass effect or midline shift is seen. James to white matter differentiation is well preserved. No extra-axial fluid collections are identified. The ventricles are normal in size. There is no abnormal attenuation within the brain parenchyma. 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 Decreased size of the left parietal vertex subgaleal hematoma. No new soft tissue abnormalities. The mastoid air cells and visualized portions of the paranasal sinuses are well-aerated. Atlantooccipital alignment is maintained. The vertebral bodies and posterior elements align normally. No acute fracture or subluxation. Vertebral body heights are maintained.Stable bone island within the C4 vertebral body. The cervicomedullary junction and spinal cord are grossly unremarkable. Stable large right thyroid nodule measuring 3.3 cm. The imaged lung apices are clear CT/CT cervical spine wo con IMPRESSION: No acute intracranial pathology. 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 No cervical spine fracture or malalignment. Stable large right thyroid nodule measuring 3.3 cm. Recommend dedicated thyroid ultrasound.
[2021-03-24 00:53] LABS: Glucose, Whole Blood 221 mg/dL (60-115)
--- NOTE | 2021-03-24 00:55 | PC.NURSE ---
Pt aaox4 with red fall socks, red fall wrist band and red star posted outside of room. Stretcher low locked, rails raised, call tristan and personal belongings within reach. Pt aware and expresses understanding of instructions not to get out of bed independently.
[2021-03-24 01:23] LABS: Basophils Percent Auto 0.4 % (0-2); Eosinophils Percent Auto 0.9 % (0-4); Monocytes Absolute Auto 0.5 X10*3/uL (0.1-1.2); Monocytes Percent Auto 11.1 % (2-11); PLT CLUMP 1; SCAN SMEAR FLAG 1
[2021-03-24 01:24] LABS: MANUAL DIFF FLAG NO
[2021-03-24 01:25] LABS: Hematocrit 34.4 % (42-52); Hemoglobin 12.2 g/dl (14.0-18.0); Imm Gran Abs Auto 0.01 X10*3/uL (0.00-0.03); Imm Gran Pct Auto 0.2 % (0.0-0.4); Lymphocytes Absolute Auto 1.3 X10*3/uL (1.2-4.9); Lymphocytes Percent Auto 28.8 % (20-40); Mean Corpuscular HGB Conc 35.5 g/dl (31.0-36.0); Mean Corpuscular Hemoglobin 31.4 pg (27.0-33.0); Mean Corpuscular Volume 88.7 fL (80-98); Mean Platelet Volume 9.4 fL (9.4-12.4); Neutrophils Absolute Auto 2.7 X10*3/uL (2.0-8.3); Neutrophils Percent Auto 58.6 % (45-73); Red Blood Count 3.88 X10*6/uL (4.60-5.80); Red Cell Distribution Width 14.5 % (11.0-16.0); White Blood Count 4.6 X10*3/uL (4.8-10.8)
[2021-03-24 01:26] LABS: Platelet Count 83 X10*3/uL (160-400)
--- NOTE | 2021-03-24 02:06 | PC.NURSE ---
pt complaining I am feeling squirrely, can I have a nicotine patch ma'am? This RN requested nicotine patch from Dr Khoury. Per Dr Khoury, ok for verbal order for nicotine patch.
[2021-03-24] MEDS: Nicotine 21 MG PATCH.TD24 TRANSDERMA (02:21)
[2021-03-24 02:29] LABS: Acetone, serum QL Small (Negative)
--- NOTE | 2021-03-24 02:34 | PC.NURSE ---
pt c/o nausea, nereyda made aware, verbal order for MATTHEW kelsey
[2021-03-24 02:39] LABS: Ethanol < 10 mg/dL
[2021-03-24 02:41] LABS: Alanine Aminotransferase 26 U/L (0-40); Albumin Level 4.1 g/dL (3.5-5.0); Alkaline Phosphatase 127 U/L (39-117); Anion Gap 16 (12-20); Aspartate Amino Transferase 47 U/L (5-37); Bilirubin Total 0.6 mg/dL (0.0-1.0); Blood Urea Nitrogen 4 mg/dL (9-16); Calcium 9.3 mg/dL (8.4-10.2); Carbon Dioxide 24 mmol/L (22-29); Chloride 101 mmol/L (96-108); Creatinine Clr Calc Pharmacy 87.5; Estimated Glomerular Filt Rate > 60; Glucose Random 198 mg/dL (60-115); Potassium 3.4 mmol/L (3.3-5.1); Sodium 138 mmol/L (135-145); Total Protein 7.3 g/dL (6.5-8.0)
[2021-03-24] MEDS: Ondansetron ODT 4 MG TAB.RAPDIS TRANSLINGU (02:47)
--- NOTE | 2021-03-24 03:47 | ED.FALL ---
HPI - Fall General Chief Complaint: Fall Stated Complaint: FALL,HIT HEAD,+CCOLLAR,-THINNERS Time Seen by Provider: 03/24/21 02:10 Source: patient Mode of arrival: EMS History of Present Illness HPI Narrative: 60-year-old male arrives from home via EMS. As per EMS patient fell while getting out of his chair. Patient resources ?a little bit I think? of loss of consciousness but denies any use of blood thinners. As per EMS patient has a small lump on the back of the head and patient endorses cervical tenderness to EMS, but is noted to remove his collar multiple times. Patient denies any fever, chills, shortness of breath, chest pain/palpitations but states he is having some mild abdominal discomfort without nausea or vomiting or diarrhea. Related Data Home Medications Medication Instructions Recorded Confirmed gabapentin 400 mg capsule 1 cap PO TID 02/27/21 02/27/21 insulin glargine 100 unit/mL (3 10 unit SUBCUT BEDTIME 02/27/21 02/27/21 mL) subcutaneous pen (Lantus Solostar U-100 Insulin) Previous Rx's Medication Instructions Recorded insulin lispro 100 unit/mL 12 unit SUBCUT TID 30 Days #15 ml 12/30/20 subcutaneous pen (Admelog SoloStar U-100 Insulin lispro) B-complex with vitamin C 1 tab PO DAILY #30 tab 03/04/21 acamprosate 333 mg tablet,delayed 666 mg PO TID #180 tab 03/04/21 release ferrous sulfate 324 mg (65 mg 324 mg PO DAILY #30 tab 03/04/21 iron) tablet,delayed release magnesium oxide 400 mg (241.3 mg 800 mg PO BIDPC #120 tab 03/04/21 magnesium) tablet nicotine (polacrilex) 2 mg buccal 2 mg BUCCAL Q1H PRN #100 ea 03/04/21 mini lozenge omeprazole 20 mg capsule,delayed 20 mg PO BID@0630,1630 #60 cap 03/04/21 release loperamide 2 mg tablet 2 mg PO Q6H PRN #14 tab 03/17/21 (Anti-Diarrheal (loperamide)) Allergies Allergy/AdvReac Type Severity Reaction Status Date / Time No Known Drug Allergies Allergy Unknown Verified 03/24/21 00:43 Review of Systems Review of Systems: Pertinent positives and negatives as stated in HPI 10 point review of systems is otherwise negative. [facility] Past Medical History Source: nursing notes reviewed Medical History Acidosis, lactic Acute dehydration Acute hyperglycemia Alcohol abuse Alcohol dependence with withdrawal Alcohol use disorder, severe, dependence Attention deficit disorder Degenerative disc disease, cervical Depression Diabetes mellitus Dyslipidemia History of substance abuse Hypomagnesemia Hypotestosteronism Osteoarthritis of right hand Pancreatitis Prolonged QT interval Thrombocytopenia Vomiting Surgical History History of surgery Family History Family History Father Cancer Mother Cancer Diabetes Social History Social History Household Members: None Housing: Apartment Do you presently have visiting nurse or other home services: No Unable to assess alcohol history related to: Refusing to respond Alcohol intake: current Alcohol intake frequency: 3 or more drinks per day Alcohol type: wine and hard liquor Patient Tobacco Use Status: Current everyday Tobacco user Tobacco use type: Cigarette Cigarette Packs Per Day: 2 Cigarettes Per Day: 40.0 Substance Use Type: Marijuana Advance Directives: No Advance Directives Information Provided: No service: No Current occupational status: unemployed and disabled Current occupation: Right Handed Physical Exam Vital Signs: Vital Signs: Last Vital Signs Temp 98.3 F 03/24/21 06:15 Pulse 83 03/24/21 06:15 Resp 13 03/24/21 06:15 BP 108/75 03/24/21 06:15 Pulse Ox 100 03/24/21 06:15 Body Mass Index 25.0 VITAL SIGNS: Reviewed. GENERAL: Chronically ill, appears older than stated age, in no acute distress. HEAD: Normocephalic/small bump on back of head. EYES: PERRLA, EOMI EARS: Ext canals without abnormality, TMs non-bulging and non-erythematous NOSE: Nares patent bilateral OROPHARYNX: no oral lesions noted, posterior pharynx clear NECK: Supple, no adenopathy LUNGS: Normal breath sounds. No adventitious sounds or accessory muscle use. SpO2<100> CARDIOVASCULAR: Regular rate and rhythm without noted murmurs, no JVD or lower extremity edema. ABDOMEN: Soft, non-tender, non-distended with bowel sounds. MUSCULOSKELETAL: No tenderness, deformities, or effusions noted on gross inspection. EXTREMITIES: No cyanosis, clubbing or edema. SKIN: Inspection of the skin reveals no rashes NEUROLOGIC: Alert and oriented x 4. Strength and sensation to light touch were grossly intact x 4, gait instability (though not in terms of focal deficit) no tremulousness Course Course Course Narrative: This is a 60-year-old male with history and clinical presentation consistent with alcohol dependence but not currently intoxicated who presents with recurrent falls with evaluations. On review of all investigations only significant for low magnesium which was repleted with 1 g of magnesium sulfate. Otherwise it was noted by nursing staff that patient remains very unsteady on his feet and given his history of multiple falls he will be evaluated by Physical therapy as well as case management for possible placement. He is otherwise medically cleared for this evaluation. Signed out to Dr Forrest. Reevaluation(s) Reevaluation #1: Patient placed in physician observation because the patient needed more time for evaluation by Physical therapy and Case Management At the time observation was started the patient's vital signs were stable, patient is alert and oriented, neuro: Nonfocal, CV RRR, lungs clear Time: 06:55 MDM - Fall Lab Data Result diagrams: 03/24/21 01:15 03/24/21 01:52 Labs: Lab Results 03/24/21 03/24/21 03/24/21 Range/Units 00:39 01:15 01:15 WBC 4.6 L (4.8-10.8) X10*3/uL RBC 3.88 L (4.60-5.80) X10*6/uL Hgb 12.2 L (14.0-18.0) g/dl Hct 34.4 L (42-52) % MCV 88.7 (80-98) fL MCH 31.4 (27.0-33.0) pg MCHC 35.5 (31.0-36.0) g/dl RDW 14.5 (11.0-16.0) % Plt Count 83 L (160-400) X10*3/uL MPV 9.4 (9.4-12.4) fL Immature Gran % (Auto) 0.2 (0.0-0.4) % Neut % (Auto) 58.6 (45-73) % Lymph % (Auto) 28.8 (20-40) % [place] % (Auto) 11.1 H (2-11) % Eos % (Auto) 0.9 (0-4) % Baso % (Auto) 0.4 (0-2) % Lymph # (Auto) 1.3 (1.2-4.9) X10*3/uL [place] # (Auto) 0.5 (0.1-1.2) X10*3/uL Eos # (Auto) 0.0 (0.0-0.4) X10*3/uL Baso # (Auto) 0.0 (0.0-0.2) X10*3/uL Abs Immat Gran (auto) 0.01 (0.00-0.03) X10*3/uL Absolute Neuts (auto) 2.7 (2.0-8.3) X10*3/uL Absolute Nucleated RBC 0.000 (0.0-0.012) X10*3/uL Nucleated RBC % (auto) 0.0 (0.0-0.2) /100WBC Sodium (135-145) mmol/L Potassium (3.3-5.1) mmol/L Chloride (96-108) mmol/L Carbon Dioxide (22-29) mmol/L Anion Gap (12-20) BUN (9-16) mg/dL Creatinine (0.5-1.4) mg/dL Estim Creat Clear Calc Estimated GFR POC Glucose 221 H (60-115) mg/dL Random Glucose (60-115) mg/dL Calcium (8.4-10.2) mg/dL Magnesium (1.6-2.6) mg/dL Total Bilirubin (0.0-1.0) mg/dL AST (5-37) U/L ALT (0-40) U/L Alkaline Phosphatase (39-117) U/L Total Protein (6.5-8.0) g/dL Albumin (3.5-5.0) g/dL Ethyl Alcohol < 10 mg/dL Acetone, Qual (Negative) 03/24/21 Range/Units 01:52 WBC (4.8-10.8) X10*3/uL RBC (4.60-5.80) X10*6/uL Hgb (14.0-18.0) g/dl Hct (42-52) % MCV (80-98) fL MCH (27.0-33.0) pg MCHC (31.0-36.0) g/dl RDW (11.0-16.0) % Plt Count (160-400) X10*3/uL MPV (9.4-12.4) fL Immature Gran % (Auto) (0.0-0.4) % Neut % (Auto) (45-73) % Lymph % (Auto) (20-40) % [place] % (Auto) (2-11) % Eos % (Auto) (0-4) % Baso % (Auto) (0-2) % Lymph # (Auto) (1.2-4.9) X10*3/uL [place] # (Auto) (0.1-1.2) X10*3/uL Eos # (Auto) (0.0-0.4) X10*3/uL Baso # (Auto) (0.0-0.2) X10*3/uL Abs Immat Gran (auto) (0.00-0.03) X10*3/uL Absolute Neuts (auto) (2.0-8.3) X10*3/uL Absolute Nucleated RBC (0.0-0.012) X10*3/uL Nucleated RBC % (auto) (0.0-0.2) /100WBC Sodium 138 (135-145) mmol/L Potassium 3.4 (3.3-5.1) mmol/L Chloride 101 (96-108) mmol/L Carbon Dioxide 24 (22-29) mmol/L Anion Gap 16 (12-20) BUN 4 L D (9-16) mg/dL Creatinine 0.82 (0.5-1.4) mg/dL Estim Creat Clear Calc 87.5 Estimated GFR > 60 POC Glucose (60-115) mg/dL Random Glucose 198 H D (60-115) mg/dL Calcium 9.3 D (8.4-10.2) mg/dL Magnesium 1.3 L* (1.6-2.6) mg/dL Total Bilirubin 0.6 (0.0-1.0) mg/dL AST 47 H D (5-37) U/L ALT 26 (0-40) U/L Alkaline Phosphatase 127 H (39-117) U/L Total Protein 7.3 (6.5-8.0) g/dL Albumin 4.1 (3.5-5.0) g/dL Ethyl Alcohol mg/dL Acetone, Qual Small H (Negative) Discharge Plan Discharge Clinical Impression: Frequent falls, Diabetes, Gait instability Additional Instructions: 1. Stable large right thyroid nodule measuring 3.3 cm. Recommend dedicated thyroid ultrasound. Prescriptions: No Action insulin lispro [Admelog SoloStar U-100 Insulin] 100 unit/mL insulin pen 12 unit subcut TID 30 Days Qty: 15 RF: 1 Lantus Solostar U-100 Insulin 100 unit/mL (3 mL) insulin pen 10 unit subcut BEDTIME RF: 0 gabapentin 400 mg capsule 1 cap PO TID RF: 0 magnesium oxide 400 mg (241.3 mg magnesium) Tablet 800 mg PO BIDPC Qty: 120 RF: 0 omeprazole 20 mg Capsule,Delayed Release(Dr/Ec) 20 mg PO BID@0630,1630 Qty: 60 RF: 0 B-complex with vitamin C Tablet 1 tab PO DAILY Qty: 30 RF: 0 ferrous sulfate 324 mg (65 mg iron) Tablet,Delayed Release (Dr/Ec) 324 mg PO DAILY Qty: 30 RF: 0 nicotine (polacrilex) 2 mg Mini Lozenge 2 mg buccal Q1H PRN (Reason: Nicotine Cravings) Qty: 100 RF: 0 acamprosate 333 mg tablet,delayed release (DR/EC) 666 mg PO TID Qty: 180 RF: 0 loperamide [Anti-Diarrheal (loperamide)] 2 mg tablet 2 mg PO Q6H PRN (Reason: loose stool) Qty: 14 RF: 0
--- NOTE | 2021-03-24 04:31 | PC.NURSE ---
Pt assisted via stand and pivot to bedside commode. Pt had small diarrhea stool. Pt stand and pivot back to stretcher, rails raised, call tristan within reach. Pt's clothing taken into pod to be washed as pt reports his washing machine is broken at home and he arrived to [facility] tonight wearing the same, unwashed, clothing that he was wearing upon arrival to [facility] a couple of days ago. Pt appreciative of care provided.
[2021-03-24 06:01] LABS: Magnesium 1.3 mg/dL (1.6-2.6)
[2021-03-24] MEDS: Magnesium Sulfate/D5W 1 GM/100 ML PIGGYBACK IV (06:17)
--- NOTE | 2021-03-24 06:20 | PC.NURSE ---
Pt reports significant difficulty ambulating at home, states if I go home, I'm just going to fall. Dr Khoury made aware of pt's concerns, and pt's noted unsteady gait. Pt's mag level assessed, noted to be low. Pt to receive PT/CM and currently receiving IV mag replacement per orders. Pt aware of plan for PT/CM, is agreeable stating that's all I need. Thank you, ma'am. Pt stretcher in lowest locked position, rails raised, call tristan within reach.
[2021-03-24] MEDS: Nicotine Polacrilex Lozenge 4 MG LOZENGE BUCCAL (07:30)
[2021-03-24 07:36] LABS: COVID-19 Test Negative (Negative)
[2021-03-24] MEDS: chlordiazePOXIDE HCl 25 MG CAPSULE PO ×2 (07:53→18:34)
--- NOTE | 2021-03-24 08:03 | PHA.MEDREC ---
Pharmacy Consult ? Medication Reconciliation Pharmacy has completed the medication reconciliation. PT reports being non compliant with his meds. He thinks he may have last taken his meds a week ago but was unsure how true really was due to his drinking.
--- NOTE | 2021-03-24 08:41 | MHC.CM.ED ---
Received case management consult from Dr Khoury. Patient came to ER after a fall. Physical therapy eval completed. Short term rehab is recommended. Patient has a history of ETOH abuse. Current CIWA score is 8. Placement will not be able to be found until CIWA is consistently 0. Chiara DIAZ aware. Continue to monitor for d/c needs.
[2021-03-24] MEDS: LORazepam 1 MG TABLET 2 MG PO (09:04)
--- NOTE | 2021-03-24 09:44 | MHC.RECOVSUP ---
Recovery Support note: Patient is a 60 year old [place] Island[place] speaking male who presented to [facility] after a fall. Patient is known to this greeting card writer from previous consultations. Patient reports he has continued to drink 5 nips a day since discharging from the hospital. Patient states he was previously drinking 10 nips a day. Patient reports he wants to continue cutting back however states it's not easy. Encouraged patient to take it one day at a time and continue moving forward with reducing his consumption. Patient acknowledged. Patient reports he has found his phone since his last admission and hopes to utilize recovery supports with his phone. Patient reports he is experiencing withdrawal symptoms at this time. Discussed case with RENE.
[2021-03-24 12:01] LABS: Glucose, Whole Blood 238 mg/dL (60-115)
--- NOTE | 2021-03-24 13:31 | MHC.CM.ED ---
Met with patient in regards to discharge planning. Patient lives alone, ambulates with a cane, and had no services prior to coming to the ER. PCP verified. Copy of HCP verified to be on file. Patient received 2 Moderna vaccines. Patient states he has never been to short term rehab. List of facilities provided to patient. Patient states he can't see the list because he is legally blind. Facility choices discussed with patient. Patient requesting referral to [facility]. Referral made via [facility]. Continue to monitor for d/c needs.
[2021-03-24 21:27] LABS: Glucose, Whole Blood 332 mg/dL (60-115)
[2021-03-24] MEDS: Insulin Glargine,Hum.rec.anlog 100 UNIT/ML 10 ML VIAL 10 UNIT SUBCUT (21:43)
[2021-03-24] MEDS: Gabapentin 400 MG CAPSULE PO (21:43)
[2021-03-24] MEDS: Famotidine 20 MG TABLET PO (21:43)
[2021-03-24] MEDS: Insulin Lispro 100 UNIT/ML 3 ML VIAL SUBCUT (21:44)
[2021-03-25] VITALS (10 sets, daily range): BP systolic 90–113; BP diastolic 57–76; PULSE 62–85; RESP 16–18; TEMP 36.7–37.1; O2SAT 93–100
[2021-03-25 06:09] LABS: Glucose, Whole Blood 277 mg/dL (60-115)
[2021-03-25] MEDS: Insulin Lispro 100 UNIT/ML 3 ML VIAL SUBCUT ×3 (06:12→18:53)
--- NOTE | 2021-03-25 06:12 | PC.NURSE ---
pt eating sandwich and drinking juice awake and alert.
[2021-03-25 07:33] LABS: Glucose, Whole Blood 279 mg/dL (60-115)
--- NOTE | 2021-03-25 07:52 | PC.NURSE ---
PT A/O X 3 NO SOB/ELIJAH NOTED SKIN PINK WARM DRY SPEAKS IN FULL SENTENCES. PT IS SLEEPING RESP EVEN AND UNLABORED.
--- NOTE | 2021-03-25 08:59 | MHC.CM.ED ---
Patient remains in ER. Current CIWA score is 1. [facility] will not be able to accept patient until CIWA is consistently 0. Continue to monitor for d/c needs.
[2021-03-25] MEDS: Famotidine 20 MG TABLET PO ×2 (09:03→22:07)
[2021-03-25] MEDS: Gabapentin 400 MG CAPSULE PO ×3 (09:03→22:07)
[2021-03-25] MEDS: Nicotine Polacrilex 2 MG GUM BUCCAL ×3 (09:15→22:07)
[2021-03-25] MEDS: Nicotine 14 MG PATCH.TD24 TRANSDERMA (09:15)
--- NOTE | 2021-03-25 09:50 | PC.NURSE ---
pt amb (i) gait steady with cane to br. pt washed up himself and cchanged into clean/new hosp garment. complete bed change done.
--- NOTE | 2021-03-25 10:00 | PC.NURSE ---
pt amb (i) gait steady to br and performed lnida/body care, pt changed into clean/new hosp garment. complete bed change done.
[2021-03-25 11:30] LABS: Glucose, Whole Blood 188 mg/dL (60-115)
[2021-03-25] MEDS: Ibuprofen 400 MG TABLET PO (11:38)
--- NOTE | 2021-03-25 16:36 | MHC.CM.ED ---
CIWA score at 1558 is 0. will continue to monitor. Expect d/c to [facility] tomorrow. CM to follow for d/c planning.
[2021-03-25 18:19] LABS: Glucose, Whole Blood 375 mg/dL (60-115)
[2021-03-25 21:40] LABS: Glucose, Whole Blood 379 mg/dL (60-115)
[2021-03-25] MEDS: Nicotine 21 MG PATCH.TD24 TRANSDERMA (22:05)
[2021-03-25] MEDS: Insulin Glargine,Hum.rec.anlog 100 UNIT/ML 10 ML VIAL 10 UNIT SUBCUT (22:06)
[2021-03-25] MEDS: Insulin Lispro 100 UNIT/ML 3 ML VIAL 10 UNIT SUBCUT (22:07)
--- NOTE | 2021-03-25 22:48 | MHC.CM.ED ---
Repeat CIWA score 0 at 2132. Expect pt will be able to go to [facility] in the am Updates sent. CM to follow for d/c needs.
[2021-03-26 00:53] VITALS: BP 97/71; PULSE 75; RESP 18; O2SAT 99
[2021-03-26] MEDS: Nicotine Polacrilex 2 MG GUM BUCCAL ×2 (01:11→09:22)
[2021-03-26] MEDS: hydrOXYzine HCL 50 MG TABLET PO ×2 (01:11→09:35)
--- NOTE | 2021-03-26 07:37 | PC.NURSE ---
PT IS CURRENTLY SLEEPING, RESPIRATIONS EVEN AND UNLABORED.
--- NOTE | 2021-03-26 08:43 | MHC.CM.ED ---
Patient remains in ER. CIWA is 0. Clinical updates sent to [facility]. Continue to monitor for d/c needs.
[2021-03-26 09:03] VITALS: BP 117/74; PULSE 73; RESP 18; TEMP 36.4; O2SAT 97
[2021-03-26] MEDS: Famotidine 20 MG TABLET PO (09:16)
[2021-03-26] MEDS: Gabapentin 400 MG CAPSULE PO (09:16)
[2021-03-26] MEDS: Nicotine Polacrilex Lozenge 2 MG LOZENGE BUCCAL (09:39)
--- NOTE | 2021-03-26 09:39 | PC.NURSE ---
Pt reporting mild anxiety which he has at baseline. 1x dose attarax given. No obvious signs of anxiety noted at this time. Pt given nicotine lozenge instead of gum at this time r/t difficulty chewing.
--- NOTE | 2021-03-26 10:37 | MHC.CM.ED ---
Received notification from ER staff that patient is looking to speak with case management. Met with patient. Patient requesting to go home before going to short term rehab. T/W explained it would not be safe for patient to go home before going to short term rehab because of ETOH abuse. Patient declining to go to short term rehab. Requesting to be discharged home. [facility] van booked. Patient, Chiara DIAZ and Gracy Boone aware. Continue to monitor for d/c needs.
[2021-03-26 11:27] LABS: Glucose, Whole Blood 406 mg/dL (60-115)
[2021-03-26] MEDS: Insulin Lispro 100 UNIT/ML 3 ML VIAL 10 UNIT SUBCUT (11:31)
== END 2021-03-26 11:40 | disposition home or self-care (01) ==
PROVIDERS: Emergency Provider Student in an Organized Health Care Education/Training Program; PCP Internal Medicine
DX: R26.89 Other abnormalities of gait and mobility (principal); E11.9 Type 2 diabetes mellitus without complications; Z91.81 History of falling; F10.20 Alcohol dependence, uncomplicated; Y90.0 Blood alcohol level of less than 20 mg/100 ml; Z79.4 Long term (current) use of insulin; F17.210 Nicotine dependence, cigarettes, uncomplicated; F12.90 Cannabis use, unspecified, uncomplicated; Z20.822 Contact with and (suspected) exposure to COVID-19
CPT/HCPCS: 36415; 70450; 72125; 80053; 82009; 82077; 82947; 83735; 85025; 87635; 96365; 97162; 99285; J3475

== ENCOUNTER 2021-03-31 23:35 | Emergency (ER) | payer OTHER, SELFPAY ==
[2021-04-01] VITALS (9 sets, daily range): BP systolic 107–126; BP diastolic 56–93; PULSE 72–97; RESP 13–18; TEMP 36.3–38.1; O2SAT 95–99; BMI 25.0
--- NOTE | 2021-04-01 00:08 | ED_ITS ---
HPI - General Adult General Chief complaint: General Medical Stated complaint: ETOH Time Seen by Provider: 03/31/21 23:51 Source: patient and EMS Mode of arrival: EMS Limitations: no limitations History of Present Illness HPI narrative: Patient comes to emergency room complaining vomiting, diarrhea. Patient states that he usually drinks a significant amount of alcohol, states he had his last drink 2 days ago, states patient is trying to detox. Related Data Home Medications Medication Instructions Recorded Confirmed gabapentin 400 mg capsule 1 cap PO TID 02/27/21 03/24/21 insulin glargine 100 unit/mL (3 10 unit SUBCUT BEDTIME 02/27/21 03/24/21 mL) subcutaneous pen (Lantus Solostar U-100 Insulin) famotidine 20 mg tablet (Pepcid AC 20 mg PO BID 03/24/21 03/24/21 Maximum Strength) insulin lispro 100 unit/mL 12 unit SUBCUT TIDWM 03/24/21 03/24/21 subcutaneous pen (Admelog SoloStar U-100 Insulin lispro) Previous Rx's Medication Instructions Recorded acamprosate 333 mg tablet,delayed 666 mg PO TID #180 tab 03/04/21 release nicotine (polacrilex) 2 mg buccal 2 mg BUCCAL Q1H PRN #100 ea 03/04/21 mini lozenge loperamide 2 mg tablet 2 mg PO Q6H PRN #14 tab 03/17/21 (Anti-Diarrheal (loperamide)) Allergies Allergy/AdvReac Type Severity Reaction Status Date / Time No Known Drug Allergies Allergy Unknown Verified 03/24/21 00:43 Review of Systems Review of Systems: Constitutional : No Weight loss, No Fever, No Chills, No Night Sweats, No Fatigue, No Malaise ENT/Mouth : No Hearing loss, No Ear Pain, No Nasal Congestion, No Sinus Pain, No Hoarseness, No sore throat, No Rhinorrhea, No Swallowing Difficulty Eyes: No Eye Pain, No Swelling, No Redness, No Foreign Body, No Discharge, No Vision Changes Cardiovascular : No Chest Pain, No SOB, No Dyspnea on Exertion, No Orthopnea, No Edema, No Palpitations Respiratory : No Cough, No Sputum, No Wheezing, No Smoke Exposure, No Dyspnea Gastrointestinal : Patient complaining of nausea, vomiting, diarrhea, diffuse abdominal cramping, No Constipation, No Hematochezia, No Melena Genitourinary : no irregular bleeding, No Dysuria, No Urinary Frequency, No Hematuria, No Urinary Incontinence, No Urgency, No Flank Pain, No Urinary Flow Changes, No Hesitancy Musculoskeletal : No joint pain, No Myalgias, No Joint Swelling Skin : No Skin Lesions, No rash Neuro : No Weakness, No Numbness, No Paresthesias, No Loss of Consciousness, No Dizziness, No Headache, complaining of chronic neuropathic pain in lower extremities Psych : No Anxiety/Panic, No Depression, No SI/HI/AH/VH, No Social Issues, Heme/Lymph: No Bruising, No Bleeding,No Lymphadenopathy Endocrine : No Polyuria, No Polydipsia, No Temperature Intolerance [facility] Past Medical History Medical History Acidosis, lactic Acute dehydration Acute hyperglycemia Alcohol abuse Alcohol dependence with withdrawal Alcohol use disorder, severe, dependence Attention deficit disorder Degenerative disc disease, cervical Depression Diabetes mellitus Dyslipidemia Head injury History of substance abuse Hypomagnesemia Hypotestosteronism Osteoarthritis of right hand Pancreatitis Prolonged QT interval Thrombocytopenia Vomiting Surgical History History of surgery Family History Family History Father Cancer Mother Cancer Diabetes Social History Social History Household Members: None Housing: Apartment Do you presently have visiting nurse or other home services: No Unable to assess alcohol history related to: Refusing to respond Alcohol intake: current Alcohol intake frequency: 3 or more drinks per day Alcohol type: wine and hard liquor Patient Tobacco Use Status: Current everyday Tobacco user Tobacco use type: Cigarette Cigarette Packs Per Day: 2 Cigarettes Per Day: 40.0 Substance Use Type: Marijuana Advance Directives: No Advance Directives Information Provided: No service: No Current occupational status: unemployed and disabled Current occupation: Right Handed Physical Exam Vital Signs: Vital Signs: Last Vital Signs Temp 99.1 F 04/01/21 01:00 Pulse 87 04/01/21 01:00 Resp 13 04/01/21 01:00 BP 126/87 04/01/21 00:21 Pulse Ox 97 04/01/21 01:00 Body Mass Index 25.0 Const: Other: Appearance: Alert. Oriented X3. No acute distress. Eyes: Pupils equal, round and reactive to light. ENT: Pharynx normal. Neck: Normal inspection. Neck supple. No lymph nodes noted. No crepitus CVS: Normal heart rate and rhythm. Pulses normal. Normal S1 and S2 Respiratory: No respiratory distress. Breath sounds normal. No Wheezing. No rales Abdomen: Soft , mild to moderate abdominal pain in all quadrants, No rigidity. No distention. good BS x4 Skin: Skin warm and dry. Normal skin color. Normal skin turgor. Extremities: No lower extremity edema. No Lacerations. No Rash, no tremors Neuro: Oriented X 3. No motor deficit. No sensory deficit. Moving all extermities. No slurred speech. Course Course Course Narrative: At this time, 01:46, patient has no active signs of withdrawal. Patient has not been vomiting, no diarrhea in the emergency room, blood pressure stable, patient is not tremulous. Patient's magnesium is 1.0, being repleted IV, patient given 1 dose of Zofran, then patient will take p.o. potassium. Patient can likely be discharged after the fluids and IV magnesium Sign-out given to Dr. Tuttle Medical Decision Making Lab Data Result diagrams: 04/01/21 00:47 04/01/21 00:48 Labs: Lab Results 04/01/21 04/01/21 04/01/21 Range/Units 00:47 00:48 00:48 WBC 4.9 (4.8-10.8) X10*3/uL RBC 3.72 L (4.60-5.80) X10*6/uL Hgb 11.8 L (14.0-18.0) g/dl Hct 33.1 L (42-52) % MCV 89.0 (80-98) fL MCH 31.7 (27.0-33.0) pg MCHC 35.6 (31.0-36.0) g/dl RDW 14.2 (11.0-16.0) % Plt Count 71 L (160-400) X10*3/uL MPV 9.2 L (9.4-12.4) fL Immature Gran % (Auto) 0.2 (0.0-0.4) % Neut % (Auto) 66.4 (45-73) % Lymph % (Auto) 20.7 (20-40) % [place] % (Auto) 11.7 H (2-11) % Eos % (Auto) 0.4 (0-4) % Baso % (Auto) 0.6 (0-2) % Lymph # (Auto) 1.0 L (1.2-4.9) X10*3/uL [place] # (Auto) 0.6 (0.1-1.2) X10*3/uL Eos # (Auto) 0.0 (0.0-0.4) X10*3/uL Baso # (Auto) 0.0 (0.0-0.2) X10*3/uL Abs Immat Gran (auto) 0.01 (0.00-0.03) X10*3/uL Absolute Neuts (auto) 3.2 (2.0-8.3) X10*3/uL Absolute Nucleated RBC 0.000 (0.0-0.012) X10*3/uL Nucleated RBC % (auto) 0.0 (0.0-0.2) /100WBC PT 12.8 (9.9-13.0) SEC INR 1.1 (0.9-1.1) Sodium 142 (135-145) mmol/L Potassium 3.2 L (3.3-5.1) mmol/L Chloride 100 (96-108) mmol/L Carbon Dioxide 28 (22-29) mmol/L Anion Gap 17 (12-20) BUN 6 L (9-16) mg/dL Creatinine 0.85 (0.5-1.4) mg/dL Estim Creat Clear Calc 84.4 Estimated GFR > 60 Random Glucose 290 H D (60-115) mg/dL Calcium 8.3 L D (8.4-10.2) mg/dL Magnesium 1.0 L* (1.6-2.6) mg/dL Total Bilirubin 0.9 (0.0-1.0) mg/dL Direct Bilirubin 0.5 (0.0-0.5) mg/dL AST 28 D (5-37) U/L ALT 25 (0-40) U/L Alkaline Phosphatase 144 H (39-117) U/L Total Protein 6.8 (6.5-8.0) g/dL Albumin 3.8 (3.5-5.0) g/dL Lipase 20 (8-78) U/L Ethyl Alcohol mg/dL Acetone, Qual Negative (Negative) 04/01/21 Range/Units 00:48 WBC (4.8-10.8) X10*3/uL RBC (4.60-5.80) X10*6/uL Hgb (14.0-18.0) g/dl Hct (42-52) % MCV (80-98) fL MCH (27.0-33.0) pg MCHC (31.0-36.0) g/dl RDW (11.0-16.0) % Plt Count (160-400) X10*3/uL MPV (9.4-12.4) fL Immature Gran % (Auto) (0.0-0.4) % Neut % (Auto) (45-73) % Lymph % (Auto) (20-40) % [place] % (Auto) (2-11) % Eos % (Auto) (0-4) % Baso % (Auto) (0-2) % Lymph # (Auto) (1.2-4.9) X10*3/uL [place] # (Auto) (0.1-1.2) X10*3/uL Eos # (Auto) (0.0-0.4) X10*3/uL Baso # (Auto) (0.0-0.2) X10*3/uL Abs Immat Gran (auto) (0.00-0.03) X10*3/uL Absolute Neuts (auto) (2.0-8.3) X10*3/uL Absolute Nucleated RBC (0.0-0.012) X10*3/uL Nucleated RBC % (auto) (0.0-0.2) /100WBC PT (9.9-13.0) SEC INR (0.9-1.1) Sodium (135-145) mmol/L Potassium (3.3-5.1) mmol/L Chloride (96-108) mmol/L Carbon Dioxide (22-29) mmol/L Anion Gap (12-20) BUN (9-16) mg/dL Creatinine (0.5-1.4) mg/dL Estim Creat Clear Calc Estimated GFR Random Glucose (60-115) mg/dL Calcium (8.4-10.2) mg/dL Magnesium (1.6-2.6) mg/dL Total Bilirubin (0.0-1.0) mg/dL Direct Bilirubin (0.0-0.5) mg/dL AST (5-37) U/L ALT (0-40) U/L Alkaline Phosphatase (39-117) U/L Total Protein (6.5-8.0) g/dL Albumin (3.5-5.0) g/dL Lipase (8-78) U/L Ethyl Alcohol < 10 mg/dL Acetone, Qual (Negative) ECG Data Attestation: I personally reviewed and interpreted this ECG as follows: (Normal sinus rhythm, heart rate 83, no ST segment depression or elevation, no T-wave inversion, QTC 455) Discharge Plan Discharge Clinical Impression: Acute hypokalemia, Alcohol abuse, Hypomagnesemia Prescriptions: No Action Lantus Solostar U-100 Insulin 100 unit/mL (3 mL) insulin pen 10 unit subcut BEDTIME RF: 0 gabapentin 400 mg capsule 1 cap PO TID RF: 0 nicotine (polacrilex) 2 mg Mini Lozenge 2 mg buccal Q1H PRN (Reason: Nicotine Cravings) Qty: 100 RF: 0 acamprosate 333 mg tablet,delayed release (DR/EC) 666 mg PO TID Qty: 180 RF: 0 famotidine [Pepcid AC Maximum Strength] 20 mg Tablet 20 mg PO BID RF: 0 insulin lispro [Admelog SoloStar U-100 Insulin] 100 unit/mL insulin pen 12 unit subcut TIDWM RF: 0 loperamide [Anti-Diarrheal (loperamide)] 2 mg tablet 2 mg PO Q6H PRN (Reason: loose stool) Qty: 14 RF: 0
[2021-04-01 00:53] LABS: Basophils Percent Auto 0.6 % (0-2); Eosinophils Percent Auto 0.4 % (0-4); Hematocrit 33.1 % (42-52); Hemoglobin 11.8 g/dl (14.0-18.0); Imm Gran Abs Auto 0.01 X10*3/uL (0.00-0.03); Imm Gran Pct Auto 0.2 % (0.0-0.4); Lymphocytes Percent Auto 20.7 % (20-40); MANUAL DIFF FLAG NO; Mean Corpuscular HGB Conc 35.6 g/dl (31.0-36.0); Mean Corpuscular Hemoglobin 31.7 pg (27.0-33.0); Mean Platelet Volume 9.2 fL (9.4-12.4); Monocytes Absolute Auto 0.6 X10*3/uL (0.1-1.2); Monocytes Percent Auto 11.7 % (2-11); Neutrophils Absolute Auto 3.2 X10*3/uL (2.0-8.3); Neutrophils Percent Auto 66.4 % (45-73); Red Blood Count 3.72 X10*6/uL (4.60-5.80); Red Cell Distribution Width 14.2 % (11.0-16.0); White Blood Count 4.9 X10*3/uL (4.8-10.8)
[2021-04-01 01:01] LABS: Platelet Count 71 X10*3/uL (160-400)
[2021-04-01 01:03] LABS: INTERNATIONAL NORM RATIO 1.1 (0.9-1.1); Prothrombin Time 12.8 SEC (9.9-13.0)
--- NOTE | 2021-04-01 01:03 | ECG_ITS ---
Test Reason : WITHDRAWAL Blood Pressure : / mmHG Vent. Rate : 083 BPM Atrial Rate : 083 BPM P-R Int : 156 ms QRS Dur : 078 ms QT Int : 388 ms P-R-T Axes : -02 -02 041 degrees QTc Int : 455 ms Normal sinus rhythm Normal ECG When compared with ECG of 15-MAR-2021 16:42, No significant change was found Referred By: Consuelo Izquierdo Electronically Signed By:RICARDO CASANOVA MD
[2021-04-01 01:13] LABS: Acetone, serum QL Negative (Negative)
[2021-04-01 01:21] LABS: Ethanol < 10 mg/dL
[2021-04-01 01:25] LABS: Alanine Aminotransferase 25 U/L (0-40); Albumin Level 3.8 g/dL (3.5-5.0); Alkaline Phosphatase 144 U/L (39-117); Anion Gap 17 (12-20); Aspartate Amino Transferase 28 U/L (5-37); Bilirubin Direct 0.5 mg/dL (0.0-0.5); Bilirubin Total 0.9 mg/dL (0.0-1.0); Blood Urea Nitrogen 6 mg/dL (9-16); Calcium 8.3 mg/dL (8.4-10.2); Carbon Dioxide 28 mmol/L (22-29); Chloride 100 mmol/L (96-108); Creatinine Clr Calc Pharmacy 84.4; Estimated Glomerular Filt Rate > 60; Glucose Random 290 mg/dL (60-115); Lipase 20 U/L (8-78); Potassium 3.2 mmol/L (3.3-5.1); Sodium 142 mmol/L (135-145); Total Protein 6.8 g/dL (6.5-8.0)
[2021-04-01] MEDS: 0.9 % Sodium Chloride 1,000 ML 999 ML IVCONT (01:36)
[2021-04-01] MEDS: ondansetron HCL 4 MG/2 ML VIAL IVPUSH (01:36)
[2021-04-01] MEDS: Thiamine HCL 200 MG/2 ML VIAL 400 MG IVPUSH (01:36)
[2021-04-01] MEDS: LORazepam 1 MG TABLET PO ×2 (01:36→20:00)
[2021-04-01] MEDS: Potassium Chloride Packet 20 MEQ PACKET 40 MEQ PO (02:06)
[2021-04-01] MEDS: Loperamide HCl 2 MG CAPSULE 4 MG PO (02:06)
[2021-04-01] MEDS: Magnesium Sulfate/H2O 2 GM/50 ML PIGGYBACK IV (02:06)
--- NOTE | 2021-04-01 02:54 | PC.NURSE ---
PT NO LONGER FEELING NAUSEOUS, ABLE TO KEEP DOWN SEVERAL CUPS OF ICEWATER AND POTASSIUM SUPPLEMENT. PT ABLE TO USE BEDSIDE COMMODE FOR LOOSE STOOLS, EARLIER IN ER ARRIVAL.
[2021-04-01 04:26] LABS: Anion Gap 15 (12-20); Blood Urea Nitrogen 6 mg/dL (9-16); Calcium 7.9 mg/dL (8.4-10.2); Carbon Dioxide 30 mmol/L (22-29); Chloride 100 mmol/L (96-108); Creatinine Clr Calc Pharmacy 89.7; Estimated Glomerular Filt Rate > 60; Glucose Random 247 mg/dL (60-115); Magnesium 1.9 mg/dL (1.6-2.6); Potassium 3.9 mmol/L (3.3-5.1); Sodium 141 mmol/L (135-145)
--- NOTE | 2021-04-01 05:48 | PC.NURSE ---
PT REQUESTING A SANDWICH AND IBUPROFEN FOR A HEADACHE.
[2021-04-01 08:00] LABS: Glucose Urine UA 100 MG/DL (NEG); Leukocyte Esterase Urine NEG (NEG); Nitrite Urine NEG (NEG); PH 6.5 (5.0-8.0); Specific Gravity - Urine 1.025 (1.005-1.025); Urine Blood NEG (NEG); Urine Ketones 5 MG/DL (NEG); Urine Protein NEG (NEG-TRACE)
[2021-04-01 08:04] LABS: Appearance Urine CLEAR; Color Urine YELLOW
[2021-04-01 08:24] LABS: Amphetamine Screen Urine Not Detected (Not Detect); Barbiturates, Urine POSITIVE (Not Detect); Benzodiazepines Screen Urine POSITIVE (Not Detect); Cannabinoid Screen Urine Not Detected (Not Detect); Cocaine Screen Urine Not Detected (Not Detect); Opiate Screen Urine Not Detected (Not Detect); Phencyclidine Screen Urine Not Detected (Not Detect)
--- NOTE | 2021-04-01 08:33 | PC.NURSE ---
AMB TO BR USING CANE.
[2021-04-01] MEDS: Nicotine 21 MG PATCH.TD24 TRANSDERMA (09:16)
--- NOTE | 2021-04-01 09:57 | PHA.MEDREC ---
Pharmacy Consult ? Medication Reconciliation Pharmacy has completed the medication reconciliation.spoke with patient in ED2.
--- NOTE | 2021-04-01 10:32 | MHC.CM.ED ---
Received case management consult overnight. Patient came to the ER with weakness. Physical therapy eval completed. Rehab is recommended. Patient is well known to case management. [facility]. Patient recieved 2 doses of Moderna vaccines. Covid swab is pending. Continue to monitor for d/c needs.
[2021-04-01 11:48] LABS: Influenza A PCR NEGATIVE (Negative); Influenza B PCR NEGATIVE (Negative); Resp Syncy Virus RNA Qual PCR NEGATIVE (Negative); SARS COV2 PCR INHOUSE NEGATIVE (Negative)
--- NOTE | 2021-04-01 12:56 | MHC.CM.ED ---
[facility] is in the process of obtaining insurance auth. Continue to monitor for d/c needs.
--- NOTE | 2021-04-01 16:15 | PC.NURSE ---
Pt lying in bed resting quietly. Dinner order received from patient.
--- NOTE | 2021-04-01 17:27 | PC.NURSE ---
Patient is resting quietly in bed in no distress.
--- NOTE | 2021-04-01 18:10 | PC.NURSE ---
Patient given dinner tray. Pt is alert and in no distress
[2021-04-02] MEDS: Nicotine Polacrilex Lozenge 2 MG LOZENGE BUCCAL ×2 (00:24→11:14)
[2021-04-02] MEDS: LORazepam 1 MG TABLET PO ×2 (00:39→07:59)
[2021-04-02 07:24] VITALS: BP 105/82; PULSE 79; RESP 16; TEMP 37.3; O2SAT 97
[2021-04-02 07:56] LABS: Glucose, Whole Blood 264 mg/dL (60-115)
[2021-04-02] MEDS: Omeprazole 20 MG CAPSULE.DR PO (07:59)
[2021-04-02 08:02] VITALS: BP 116/82; PULSE 80; RESP 12; TEMP 36.3; O2SAT 99
--- NOTE | 2021-04-02 08:23 | MHC.CM.ED ---
Patient remains in ER. Waiting for insurance auth for patient to go to [facility] for short term rehab. Continue to monitor for d/c needs.
[2021-04-02 10:39] VITALS: BP 122/80; PULSE 68; RESP 16; TEMP 37.1; O2SAT 97
[2021-04-02] MEDS: Nicotine 21 MG PATCH.TD24 TRANSDERMA (11:14)
[2021-04-02] MEDS: ondansetron HCL 4 MG/2 ML VIAL IVPUSH (11:32)
[2021-04-02 12:26] VITALS: BP 125/80; PULSE 60; RESP 16; TEMP 36.7; O2SAT 97
--- NOTE | 2021-04-02 15:30 | MHC.CM.ED ---
[facility] has obtained insurance auth. Patient can leave at 430pm. [facility]. Med [facility] with chart. Patient and Monica DIAZ aware. Continue to monitor for d/c needs.
== END 2021-04-02 16:19 | disposition skilled nursing facility (03) ==
PROVIDERS: Internal Medicine; Emergency Provider Emergency Medicine
DX: F10.20 Alcohol dependence, uncomplicated (principal); E83.42 Hypomagnesemia; E87.6 Hypokalemia; D64.9 Anemia, unspecified; E11.42 Type 2 diabetes mellitus with diabetic polyneuropathy; Z79.4 Long term (current) use of insulin; Z79.899 Other long term (current) drug therapy; Z20.822 Contact with and (suspected) exposure to COVID-19
CPT/HCPCS: 0241U; 36415; 80048; 80076; 80307; 81003; 82009; 82077; 82947; 83690; 83735; 85025; 85610; 93005; 96361; 96374; 96375; 97162; 99285; J2405; J3411; J3475

== ENCOUNTER 2021-04-03 08:21 | Emergency (ER) | payer OTHER, SELFPAY ==
--- NOTE | ~2021-04-03 | CT_ITS ---
EXAMINATION: CT CERVICAL SPINE WITHOUT CONTRAST CLINICAL INFORMATION: Fall, trauma, ETOH COMPARISON: CT cervical spine 03/24/2021, 08/01/2018. TECHNIQUE: Multidetector volumetric CT imaging of the cervical spine is performed without contrast in the axial plane. Additional 2D reformatted coronal and sagittal images are generated on the CT workstation and uploaded to PACS. This CT examination was performed using dose optimization techniques as appropriate, variously including the following: *Automated exposure control *Adjustment of mA and/or kV according to patient size (this includes techniques or standardized protocols for targeted exams where dose is matched to indication/reason for exam; i.e. extremities or head) *Use of iterative reconstruction technique DLP: 309 mGy-cm FINDINGS: There is no vertebral compression fracture, fracture line, spondylolisthesis, or prevertebral soft tissue swelling. The craniocervical junction appears normal. The odontoid appears intact. There is straightening of the cervical lordosis. There are degenerative changes again noted with mild disc narrowing C5-C6. Posterior disc bulging with bridging osteophyte or mineralized annulus again noted at C3-C4. There is again mild dextrocurvature of cervical spine similar to previous exam. There is a bone island again seen in vertebral body C4. No apical pneumothorax. There is chronic largest nodule right thyroid again seen with overall size approximately 3.2 cm diameter by [address]/CT cervical spine wo con IMPRESSION: 1. No acute bony abnormality or prevertebral soft tissue swelling. 2. Chronic large right thyroid nodule approximately 3 x 6 cm. This may be further characterized with dedicated ultrasound as outpatient.
--- NOTE | ~2021-04-03 | CT_ITS ---
EXAMINATION: CT HEAD WITHOUT CONTRAST CLINICAL INFORMATION: Fall, trauma, EtOH COMPARISON: CT had noncontrast 03/24/2021, 03/15/2021, 02/28/2021 TECHNIQUE: Contiguous axial imaging was performed from the skull base to vertex without intravenous administration of contrast. This CT examination was performed using dose optimization techniques as appropriate, variously including the following: *Automated exposure control *Adjustment of mA and/or kV according to patient size (this includes techniques or standardized protocols for targeted exams where dose is matched to indication/reason for exam; i.e. extremities or head) *Use of iterative reconstruction technique DLP: 709 mGy-cm FINDINGS: There is no intracranial hemorrhage, hematoma, or extra-axial fluid collection. The ventricles are normal in size. There is no hydrocephalus, edema, or mass effect. The morris-white matter differentiation appears symmetric. There is some mild accentuation of the cortical sulci and fissures and cisterns similar to prior studies. Punctate bilateral basal ganglia calcifications are again seen. There is a stable aneurysm basilar tip measuring approximately 9 x 10 x 11 mm, stable from prior studies. There is no visible acute territorial infarct or interval mass lesion. The calvarium appears intact. There is no pneumocephalus or orbital emphysema. The visualized sinuses and middle ears and mastoid air cells show no significant mucosal thickening. There are no air-fluid levels. CT/CT head/brain wo con IMPRESSION: 1. No acute intracranial abnormality. 2. Aneurysm basilar tip stable.
[2021-04-03 08:27] VITALS: BP 128/76; PULSE 86; O2SAT 99
[2021-04-03 08:28] VITALS: BP 104/77; PULSE 95; RESP 15; TEMP 36.6; O2SAT 97; BMI 25.0
--- NOTE | 2021-04-03 08:58 | ED.GENADULT ---
HPI - General Adult General Chief complaint: General Medical Stated complaint: hyperglycemia 2.8 2/ Time Seen by Provider: 04/03/21 08:43 Source: patient and EMS Mode of arrival: EMS Limitations: no limitations History of Present Illness HPI narrative: Patient comes to the emergency room complaining of a fall. Patient was discharged yesterday from the emergency room, case management and physical therapy evaluated the patient, recommended short-term rehab at [facility]. Patient states that he got into an argument with the intake nurse, patient signed himself out, went home, had alcohol, fell backwards and hit the back of his head, did not lose consciousness. Patient complaining of mild neck pain. Related Data Home Medications Medication Instructions Recorded Confirmed gabapentin 400 mg capsule 400 mg PO BEDTIME 02/27/21 04/03/21 insulin glargine 100 unit/mL (3 12 unit SUBCUT BEDTIME 02/27/21 04/03/21 mL) subcutaneous pen (Lantus Solostar U-100 Insulin) insulin lispro 100 unit/mL 10 unit SUBCUT TIDAC 04/01/21 04/03/21 subcutaneous pen (Humalog KwikPen (U-100) Insulin) gabapentin 100 mg tablet 100 mg PO BID@0900,1200 PRN 04/03/21 04/03/21 Allergies Allergy/AdvReac Type Severity Reaction Status Date / Time No Known Drug Allergies Allergy Unknown Verified 03/24/21 00:43 Review of Systems Review of Systems: Constitutional : No Weight loss, No Fever, No Chills, No Night Sweats, No Fatigue, No Malaise ENT/Mouth : No Hearing loss, No Ear Pain, No Nasal Congestion, No Sinus Pain, No Hoarseness, No sore throat, No Rhinorrhea, No Swallowing Difficulty Eyes: No Eye Pain, No Swelling, No Redness, No Foreign Body, No Discharge, No Vision Changes Cardiovascular : No Chest Pain, No SOB, No Dyspnea on Exertion, No Orthopnea, No Edema, No Palpitations Respiratory : No Cough, No Sputum, No Wheezing, No Smoke Exposure, No Dyspnea Gastrointestinal : No Nausea, No Vomiting, No Diarrhea, No Constipation, No abdominal Pain, No Hematochezia, No Melena Genitourinary : no irregular bleeding, No Dysuria, No Urinary Frequency, No Hematuria, No Urinary Incontinence, No Urgency, No Flank Pain, No Urinary Flow Changes, No Hesitancy Musculoskeletal : No joint pain, No Myalgias, No Joint Swelling, complaining of chronic lower extremity neuropathy, complaining of posterior neck pain after a fall Skin : No Skin Lesions, No rash Neuro : No Weakness, No Numbness, No Paresthesias, No Loss of Consciousness, No Dizziness, No Headache Psych : No Anxiety/Panic, No Depression, No SI/HI/AH/VH, No Social Issues, Heme/Lymph: No Bruising, No Bleeding,No Lymphadenopathy Endocrine : No Polyuria, No Polydipsia, No Temperature Intolerance [facility] Past Medical History Medical History Acidosis, lactic Acute dehydration Acute hyperglycemia Alcohol abuse Alcohol dependence with withdrawal Alcohol use disorder, severe, dependence Attention deficit disorder Degenerative disc disease, cervical Depression Diabetes mellitus Dyslipidemia Head injury History of substance abuse Hypomagnesemia Hypotestosteronism Osteoarthritis of right hand Pancreatitis Prolonged QT interval Thrombocytopenia Vomiting Surgical History History of surgery Family History Family History Father Cancer Mother Cancer Diabetes Social History Social History Household Members: None Housing: Apartment Do you presently have visiting nurse or other home services: No Unable to assess alcohol history related to: Refusing to respond Alcohol intake: current Alcohol intake frequency: holidays/special occasions only Alcohol type: hard liquor Patient Tobacco Use Status: Current everyday Tobacco user Tobacco use type: Cigarette Cigarette Packs Per Day: 2 Cigarettes Per Day: 40.0 Use of substances other than those prescribed or required for medical reasons: No Substance Use Type: Marijuana Advance Directives: No Advance Directives Information Provided: No service: No Current occupational status: unemployed and disabled Current occupation: Right Handed Physical Exam Vital Signs: Vital Signs: Last Vital Signs Temp 98.8 F 04/03/21 10:15 Pulse 73 04/03/21 11:43 Resp 16 04/03/21 10:15 BP 106/68 04/03/21 11:43 Pulse Ox 99 04/03/21 11:43 Body Mass Index 25.0 Const: Other: Appearance: Alert. Oriented X3. No acute distress. Eyes: Pupils equal, round and reactive to light. ENT: Pharynx normal. Neck: Normal inspection. Neck supple. No lymph nodes noted. No crepitus, normal range of motion with flexion and extension, no palpable step-offs, no C-spine tenderness CVS: Normal heart rate and rhythm. Pulses normal. Normal S1 and S2 Respiratory: No respiratory distress. Breath sounds normal. No Wheezing. No rales Abdomen: Soft and nontender. No rigidity. No distention. good BS x4 Skin: Skin warm and dry. Normal skin color. Normal skin turgor. No abrasions and no ecchymosis Extremities: No lower extremity edema. No lower extremity edema. No Lacerations. No Rash Neuro: Oriented X 3. No motor deficit. No sensory deficit. Moving all extermities. No slurred speech. Course Course Course Narrative: Patient is being accepted in [facility] in [facility]. Patient agreeable to go. Medical Decision Making Lab Data Labs: Lab Results 04/03/21 04/03/21 04/03/21 Range/Units 09:48 09:48 11:54 Urine Color YELLOW Urine Appearance CLEAR Urine pH 7.0 (5.0-8.0) Ur Specific Buckner 1.015 (1.005-1.025) Urine Protein 1+ H (NEG-TRACE) MG/DL Urine Glucose (UA) 250 H (NEG) MG/DL Urine Ketones 5 (NEG) MG/DL Urine Blood NEG (NEG) Urine Nitrite NEG (NEG) Ur Leukocyte Esterase NEG (NEG) Urine RBC 0-2 (0) /HPF Urine WBC 1-4 (0-4) /HPF Ur Squamous Epith Cells 1+ /LPF Urine Bacteria NONE /LPF Urine Mucus 1+ /LPF Urine Opiates Screen Not Detected (Not Detect) Urine Fentanyl Screen Not Detected (Not Detect) Ur Barbiturates Screen POSITIVE H (Not Detect) Ur Phencyclidine Scrn Not Detected (Not Detect) Ur Amphetamines Screen Not Detected (Not Detect) U Benzodiazepines Scrn POSITIVE H (Not Detect) Urine Cocaine Screen Not Detected (Not Detect) U Marijuana (THC) Screen Not Detected (Not Detect) Ethyl Alcohol mg/dL Coronavirus (PCR) NEGATIVE (Negative) Influenza Type A (PCR) NEGATIVE (Negative) Influenza Type B (PCR) NEGATIVE (Negative) RSV RNA Qual (PCR) NEGATIVE (Negative) 04/03/21 Range/Units 11:55 Urine Color Urine Appearance Urine pH (5.0-8.0) Ur Specific Buckner (1.005-1.025) Urine Protein (NEG-TRACE) MG/DL Urine Glucose (UA) (NEG) MG/DL Urine Ketones (NEG) MG/DL Urine Blood (NEG) Urine Nitrite (NEG) Ur Leukocyte Esterase (NEG) Urine RBC (0) /HPF Urine WBC (0-4) /HPF Ur Squamous Epith Cells /LPF Urine Bacteria /LPF Urine Mucus /LPF Urine Opiates Screen (Not Detect) Urine Fentanyl Screen (Not Detect) Ur Barbiturates Screen (Not Detect) Ur Phencyclidine Scrn (Not Detect) Ur Amphetamines Screen (Not Detect) U Benzodiazepines Scrn (Not Detect) Urine Cocaine Screen (Not Detect) U Marijuana (THC) Screen (Not Detect) Ethyl Alcohol < 10 mg/dL Coronavirus (PCR) (Negative) Influenza Type A (PCR) (Negative) Influenza Type B (PCR) (Negative) RSV RNA Qual (PCR) (Negative) Imaging Data Cervical spine CT: Radiologist's impression: There is no vertebral compression fracture, fracture line, spondylolisthesis, or prevertebral soft tissue swelling. The craniocervical junction appears normal. The odontoid appears intact. There is straightening of the cervical lordosis. There are degenerative changes again noted with mild disc narrowing C5-C6. Posterior disc bulging with bridging osteophyte or mineralized annulus again noted at C3-C4. There is again mild dextrocurvature of cervical spine similar to previous exam. There is a bone island again seen in vertebral body C4. No apical pneumothorax. There is chronic largest nodule right thyroid again seen with overall size approximately 3.2 cm diameter by [address]/CT cervical spine wo con IMPRESSION: 1.? No acute bony abnormality or prevertebral soft tissue swelling. ? 2.? Chronic large right thyroid nodule approximately 3 x 6 cm. This may be further characterized with dedicated ultrasound as outpatient. CT scan - head: Radiologist's impression: FINDINGS: There is no intracranial hemorrhage, hematoma, or extra-axial fluid collection.? The ventricles are normal in size. There is no hydrocephalus, edema, or mass effect.? The morris-white matter differentiation appears symmetric. There is some mild accentuation of the cortical sulci and fissures and cisterns similar to prior studies. Punctate bilateral basal ganglia calcifications are again seen. There is a stable aneurysm basilar tip measuring approximately 9 x 10 x 11 mm, stable from prior studies. There is no visible acute territorial infarct or interval mass lesion. The calvarium appears intact. There is no pneumocephalus or orbital emphysema.? The visualized sinuses and middle ears and mastoid air cells show no significant mucosal thickening. There are no air-fluid levels. CT/CT head/brain wo con IMPRESSION: ? 1. No acute intracranial abnormality. 2. Aneurysm basilar tip stable. Discharge Plan Discharge Clinical Impression: Falls frequently, Chronic neuropathic pain Patient Disposition: Home, Self-Care Instructions: Fall Prevention for Older Adults (ED) Additional Instructions: Please follow-up with your primary care physician tomorrow. If you have any worsening or new symptoms, please return to the emergency room or call 911 Prescriptions: No Action Lantus Solostar U-100 Insulin 100 unit/mL (3 mL) insulin pen 12 unit subcut BEDTIME RF: 0 gabapentin 400 mg capsule 400 mg PO BEDTIME RF: 0 insulin lispro [Humalog KwikPen Insulin] 100 unit/mL Insulin Pen 10 unit SUBCUT TIDAC RF: 0 gabapentin 100 mg Tablet 100 mg PO BID@0900,1200 PRN (Reason: Pain) RF: 0
[2021-04-03] MEDS: Acetaminophen 325 MG TABLET 650 MG PO (09:55)
[2021-04-03 10:03] LABS: Glucose Urine UA 250 MG/DL (NEG); Leukocyte Esterase Urine NEG (NEG); Nitrite Urine NEG (NEG); Specific Gravity - Urine 1.015 (1.005-1.025); UACC Culture Trigger NO; Urine Blood NEG (NEG); Urine Ketones 5 MG/DL (NEG); Urine Protein 1+ MG/DL (NEG-TRACE)
[2021-04-03 10:04] LABS: Appearance Urine CLEAR; Color Urine YELLOW
[2021-04-03 10:15] VITALS: BP 105/67; PULSE 74; RESP 16; TEMP 37.1; O2SAT 97
[2021-04-03 10:15] LABS: Mucus Urine 1+ /LPF; RBC Urine 0-2 /HPF (0); Squamous Epithelial Cell Urine 1+ /LPF
[2021-04-03 10:37] LABS: Amphetamine Screen Urine Not Detected (Not Detect); Barbiturates, Urine POSITIVE (Not Detect); Benzodiazepines Screen Urine POSITIVE (Not Detect); Cannabinoid Screen Urine Not Detected (Not Detect); Cocaine Screen Urine Not Detected (Not Detect); Fentanyl, urine Not Detected (Not Detect); Opiate Screen Urine Not Detected (Not Detect); Phencyclidine Screen Urine Not Detected (Not Detect)
--- NOTE | 2021-04-03 11:17 | PHA.MEDREC ---
Pharmacy Consult ? Medication Reconciliation Pharmacy has completed the medication reconciliation. Patient has no recent filled history for gabapentin. Last filled in for Gabapentin 400mg TID. He reports taking it as 400mg at bedtime and 100mg BID PRN. Yadira Fuentes, PharmD
[2021-04-03 11:43] VITALS: BP 106/68; PULSE 73; O2SAT 99
[2021-04-03 12:21] LABS: Ethanol < 10 mg/dL
[2021-04-03 12:53] LABS: Influenza A PCR NEGATIVE (Negative); Influenza B PCR NEGATIVE (Negative); Resp Syncy Virus RNA Qual PCR NEGATIVE (Negative); SARS COV2 PCR INHOUSE NEGATIVE (Negative)
[2021-04-03] MEDS: Nicotine 21 MG PATCH.TD24 TRANSDERMA (14:59)
[2021-04-03 15:44] VITALS: BP 98/71; PULSE 80; RESP 16; TEMP 37.2; O2SAT 98
--- NOTE | 2021-04-03 16:06 | MHC.CM.ED ---
Received case management consult from Dr Izquierdo. Patient was d/c'd from [facility] on 04/02 to [facility]. When patient arrived at [facility], he wanted to smoke a cigarette and left the building before he could be officially admitted. Patient returned to the ER today. Patient is agreeable to returning to [facility]. Referral made. [place] doesn't have a bed. [place] does. Patient is agreeable to [facility]. Insurance auth has been obtained. Chair marietta booked for 530pm. Patient, Shanice TORRES and Dr Izquierdo aware. Continue to monitor for d/c needs.
== END 2021-04-03 18:08 | disposition home or self-care (01) ==
PROVIDERS: Emergency Provider Emergency Medicine; PCP Internal Medicine
DX: G89.29 Other chronic pain (principal); M79.2 Neuralgia and neuritis, unspecified; Z91.81 History of falling; M54.2 Cervicalgia; Z20.822 Contact with and (suspected) exposure to COVID-19; E11.9 Type 2 diabetes mellitus without complications; F19.10 Other psychoactive substance abuse, uncomplicated; F12.90 Cannabis use, unspecified, uncomplicated; F17.210 Nicotine dependence, cigarettes, uncomplicated; F10.20 Alcohol dependence, uncomplicated; Y90.0 Blood alcohol level of less than 20 mg/100 ml; Z79.899 Other long term (current) drug therapy; Z79.4 Long term (current) use of insulin
CPT/HCPCS: 0241U; 36415; 70450; 72125; 80307; 81001; 81003; 82077; 99284; 99285

== ENCOUNTER 2021-04-26 07:02 | Emergency (ER) | payer OTHER, SELFPAY ==
[2021-04-26 07:18] VITALS: BP 123/94; PULSE 98; RESP 18; TEMP 36.9; O2SAT 98; BMI 25.0
--- NOTE | 2021-04-26 08:21 | ED.ABDPAIN ---
HPI - Abdominal Pain General Chief Complaint: Abdominal Pain Stated Complaint: covid symptoms Time Seen by Provider: 04/26/21 08:21 Source: patient Mode of arrival: EMS History of Present Illness HPI narrative: 60-year-old male who is brought in by EMS and stating that he has had lower abdominal pain for the past 2 days with nausea, vomiting, and diarrhea. Also complaining of his diabetic neuropathy in bilateral feet. He states that he was ?forced out of the skilled nursing? that he was in because his roommate was talking too much to him. He had requested to be placed in a room by himself, however ?never happened?. Related Data Home Medications Medication Instructions Recorded Confirmed gabapentin 400 mg capsule 400 mg PO TID 02/27/21 04/26/21 insulin glargine 100 unit/mL (3 12 unit SUBCUT BEDTIME 02/27/21 04/26/21 mL) subcutaneous pen (Lantus Solostar U-100 Insulin) insulin lispro 100 unit/mL 10 unit SUBCUT TIDAC 04/01/21 04/26/21 subcutaneous pen (Humalog KwikPen (U-100) Insulin) gabapentin 100 mg tablet 100 mg PO BID@0900,1200 PRN 04/03/21 04/26/21 Allergies Allergy/AdvReac Type Severity Reaction Status Date / Time No Known Drug Allergies Allergy Unknown Verified 03/24/21 00:43 Review of Systems Review of Systems Pertinent positives and negatives as stated in HPI 10 point review systems is otherwise negative. Physical Exam Vital Signs: Vital Signs: Last Vital Signs Temp 98.8 F 04/26/21 08:34 Pulse 86 04/26/21 14:27 Resp 16 04/26/21 14:27 BP 100/47 L 04/26/21 14:27 Pulse Ox 98 04/26/21 14:27 Body Mass Index 25.0 VITAL SIGNS: Reviewed. GENERAL: Well developed, well nourished, in no acute distress. HEAD: Normocephalic/atraumatic EYES: PERRLA, EOMI OROPHARYNX: no oral lesions noted, posterior pharynx clear LUNGS: Normal breath sounds. No adventitious sounds or accessory muscle use. SpO2<98> CARDIOVASCULAR: Regular rate and rhythm without noted murmurs, no JVD or lower extremity edema. ABDOMEN: Soft, mild discomfort on palpation, non-distended with bowel sounds. MUSCULOSKELETAL: No tenderness, deformities, or effusions noted on gross inspection. EXTREMITIES: No cyanosis, clubbing or edema. SKIN: Inspection of the skin reveals no rashes NEUROLOGIC: Alert and oriented x 4. Strength and sensation to light touch were grossly intact x 4. Course Course Course Narrative: 60-year-old male with history and clinical presentation caution of chronic pain, likely a component of gastritis and patient has had no further episodes of diarrhea here in the emergency room. He has alternated between being able to tolerate use as well as a sandwich and then will informed nursing that he is nauseous. Patient stating that he requires more help and case management and PT eval were placed. He is otherwise medically cleared for placement. He will require continued medical management given his underlying diabetes. Reevaluation(s) Reevaluation #1: Patient placed in physician observation because the patient needed more time for case management and physical therapy evaluation. At the time observation was started the patient's vital signs were stable, patient is alert and oriented, neuro: Nonfocal, CV RRR, lungs clear Time: 16:49 MDM - Abdominal Pain Lab Data Result diagrams: 04/26/21 08:40 04/26/21 08:40 Labs: Lab Results 04/26/21 04/26/21 04/26/21 Range/Units 08:32 08:40 08:40 WBC 7.0 (4.8-10.8) X10*3/uL RBC 3.84 L (4.60-5.80) X10*6/uL Hgb 11.9 L (14.0-18.0) g/dl Hct 33.5 L (42-52) % MCV 87.2 (80-98) fL MCH 31.0 (27.0-33.0) pg MCHC 35.5 (31.0-36.0) g/dl RDW 12.8 (11.0-16.0) % Plt Count 79 L (160-400) X10*3/uL MPV 10.6 (9.4-12.4) fL Immature Gran % (Auto) 0.3 (0.0-0.4) % Neut % (Auto) 61.0 (45-73) % Lymph % (Auto) 29.4 (20-40) % [place] % (Auto) 7.8 (2-11) % Eos % (Auto) 1.1 (0-4) % Baso % (Auto) 0.4 (0-2) % Lymph # (Auto) 2.1 (1.2-4.9) X10*3/uL [place] # (Auto) 0.6 (0.1-1.2) X10*3/uL Eos # (Auto) 0.1 (0.0-0.4) X10*3/uL Baso # (Auto) 0.0 (0.0-0.2) X10*3/uL Abs Immat Gran (auto) 0.02 (0.00-0.03) X10*3/uL Absolute Neuts (auto) 4.3 (2.0-8.3) X10*3/uL Absolute Nucleated RBC 0.000 (0.0-0.012) X10*3/uL Nucleated RBC % (auto) 0.0 (0.0-0.2) /100WBC Sodium 134 L (135-145) mmol/L Potassium 3.9 (3.3-5.1) mmol/L Chloride 99 (96-108) mmol/L Carbon Dioxide 22 (22-29) mmol/L Anion Gap 17 (12-20) BUN 9 (9-16) mg/dL Creatinine 0.82 (0.5-1.4) mg/dL Estim Creat Clear Calc 87.5 Estimated GFR > 60 POC Glucose 306 H (60-115) mg/dL Random Glucose 299 H (60-115) mg/dL Calcium 9.0 D (8.4-10.2) mg/dL Total Bilirubin 1.1 H (0.0-1.0) mg/dL AST 17 (5-37) U/L ALT 19 (0-40) U/L Alkaline Phosphatase 96 D (39-117) U/L Total Protein 7.4 (6.5-8.0) g/dL Albumin 4.3 (3.5-5.0) g/dL Acetone, Qual Negative (Negative) COVID-19 (KAYLA) (Negative) COVID-19 Clin Com 04/26/21 04/26/21 Range/Units 09:59 16:53 WBC (4.8-10.8) X10*3/uL RBC (4.60-5.80) X10*6/uL Hgb (14.0-18.0) g/dl Hct (42-52) % MCV (80-98) fL MCH (27.0-33.0) pg MCHC (31.0-36.0) g/dl RDW (11.0-16.0) % Plt Count (160-400) X10*3/uL MPV (9.4-12.4) fL Immature Gran % (Auto) (0.0-0.4) % Neut % (Auto) (45-73) % Lymph % (Auto) (20-40) % [place] % (Auto) (2-11) % Eos % (Auto) (0-4) % Baso % (Auto) (0-2) % Lymph # (Auto) (1.2-4.9) X10*3/uL [place] # (Auto) (0.1-1.2) X10*3/uL Eos # (Auto) (0.0-0.4) X10*3/uL Baso # (Auto) (0.0-0.2) X10*3/uL Abs Immat Gran (auto) (0.00-0.03) X10*3/uL Absolute Neuts (auto) (2.0-8.3) X10*3/uL Absolute Nucleated RBC (0.0-0.012) X10*3/uL Nucleated RBC % (auto) (0.0-0.2) /100WBC Sodium (135-145) mmol/L Potassium (3.3-5.1) mmol/L Chloride (96-108) mmol/L Carbon Dioxide (22-29) mmol/L Anion Gap (12-20) BUN (9-16) mg/dL Creatinine (0.5-1.4) mg/dL Estim Creat Clear Calc Estimated GFR POC Glucose 278 H (60-115) mg/dL Random Glucose (60-115) mg/dL Calcium (8.4-10.2) mg/dL Total Bilirubin (0.0-1.0) mg/dL AST (5-37) U/L ALT (0-40) U/L Alkaline Phosphatase (39-117) U/L Total Protein (6.5-8.0) g/dL Albumin (3.5-5.0) g/dL Acetone, Qual (Negative) COVID-19 (KAYLA) Negative (Negative) COVID-19 Clin Com See Note Discharge Plan Discharge Clinical Impression: Chronic abdominal pain Prescriptions: No Action Lantus Solostar U-100 Insulin 100 unit/mL (3 mL) insulin pen 12 unit subcut BEDTIME RF: 0 gabapentin 400 mg capsule 400 mg PO TID RF: 0 insulin lispro [Humalog KwikPen Insulin] 100 unit/mL Insulin Pen 10 unit SUBCUT TIDAC RF: 0 gabapentin 100 mg Tablet 100 mg PO BID@0900,1200 PRN (Reason: Pain) RF: 0 PMFSH Past Medical History Source: nursing notes reviewed Medical History Acidosis, lactic Acute dehydration Acute hyperglycemia Alcohol abuse Alcohol dependence with withdrawal Alcohol use disorder, severe, dependence Attention deficit disorder Degenerative disc disease, cervical Depression Diabetes mellitus Dyslipidemia Head injury History of substance abuse Hypomagnesemia Hypotestosteronism Osteoarthritis of right hand Pancreatitis Prolonged QT interval Thrombocytopenia Vomiting Surgical History History of surgery Family History Family History Father Cancer Mother Cancer Diabetes Social History Social History Household Members: None Housing: Apartment Do you presently have visiting nurse or other home services: No Unable to assess alcohol history related to: Refusing to respond Alcohol intake: current Alcohol intake frequency: holidays/special occasions only Alcohol type: hard liquor Patient Tobacco Use Status: Current everyday Tobacco user Tobacco use type: Cigarette Cigarette Packs Per Day: 2 Cigarettes Per Day: 40.0 Use of substances other than those prescribed or required for medical reasons: No Substance Use Type: Marijuana Advance Directives: No Advance Directives Information Provided: No service: No Current occupational status: unemployed and disabled Current occupation: Right Handed
[2021-04-26 08:34] VITALS: BP 115/87; PULSE 85; RESP 15; TEMP 37.1; O2SAT 98
[2021-04-26 08:45] LABS: MANUAL DIFF FLAG NO
[2021-04-26 08:46] LABS: Glucose, Whole Blood 306 mg/dL (60-115)
[2021-04-26 08:57] LABS: Basophils Percent Auto 0.4 % (0-2); Eosinophils Absolute Auto 0.1 X10*3/uL (0.0-0.4); Eosinophils Percent Auto 1.1 % (0-4); Hematocrit 33.5 % (42-52); Hemoglobin 11.9 g/dl (14.0-18.0); Imm Gran Abs Auto 0.02 X10*3/uL (0.00-0.03); Imm Gran Pct Auto 0.3 % (0.0-0.4); Lymphocytes Absolute Auto 2.1 X10*3/uL (1.2-4.9); Lymphocytes Percent Auto 29.4 % (20-40); Mean Corpuscular HGB Conc 35.5 g/dl (31.0-36.0); Mean Corpuscular Volume 87.2 fL (80-98); Mean Platelet Volume 10.6 fL (9.4-12.4); Monocytes Absolute Auto 0.6 X10*3/uL (0.1-1.2); Monocytes Percent Auto 7.8 % (2-11); Neutrophils Absolute Auto 4.3 X10*3/uL (2.0-8.3); Red Blood Count 3.84 X10*6/uL (4.60-5.80); Red Cell Distribution Width 12.8 % (11.0-16.0)
[2021-04-26 08:59] LABS: Platelet Count 79 X10*3/uL (160-400)
[2021-04-26 09:06] LABS: Alanine Aminotransferase 19 U/L (0-40); Albumin Level 4.3 g/dL (3.5-5.0); Alkaline Phosphatase 96 U/L (39-117); Anion Gap 17 (12-20); Aspartate Amino Transferase 17 U/L (5-37); Bilirubin Total 1.1 mg/dL (0.0-1.0); Blood Urea Nitrogen 9 mg/dL (9-16); Carbon Dioxide 22 mmol/L (22-29); Chloride 99 mmol/L (96-108); Creatinine Clr Calc Pharmacy 87.5; Estimated Glomerular Filt Rate > 60; Glucose Random 299 mg/dL (60-115); Potassium 3.9 mmol/L (3.3-5.1); Sodium 134 mmol/L (135-145); Total Protein 7.4 g/dL (6.5-8.0)
[2021-04-26] MEDS: ondansetron HCL 4 MG/2 ML VIAL IVPUSH ×2 (09:43→20:58)
[2021-04-26] MEDS: 0.9 % Sodium Chloride 1,000 ML 999 ML IV (09:45)
[2021-04-26 09:48] LABS: Acetone, serum QL Negative (Negative)
[2021-04-26] MEDS: Nicotine 21 MG PATCH.TD24 TRANSDERMA (10:21)
[2021-04-26 10:23] LABS: COVID-19 Test Negative (Negative)
[2021-04-26] MEDS: Acetaminophen 325 MG TABLET 975 MG PO ×2 (10:23→17:23)
[2021-04-26 11:03] VITALS: BP 127/74; PULSE 77; RESP 16; O2SAT 99
--- NOTE | 2021-04-26 14:23 | PC.NURSE ---
Patient reporting continued nausea. This RN has made Dr. Khoury aware. Dr. Khoury to put in nausea medication.
[2021-04-26 14:27] VITALS: BP 100/47; PULSE 86; RESP 16; O2SAT 98
[2021-04-26] MEDS: Metoclopramide HCl 10 MG TABLET PO (14:38)
--- NOTE | 2021-04-26 16:07 | MHC.CM.ED ---
Received case management consult from Dr Le. Patient was at [facility] and was discharged home a few days prior to coming to the ER. Patient feels he needs more rehab. Patient will need physical therapy eval. Anticiapte patient will remain in ER. Continue to monitor for d/c needs.
[2021-04-26 16:57] LABS: Glucose, Whole Blood 278 mg/dL (60-115)
[2021-04-26] MEDS: Gabapentin 400 MG CAPSULE PO (20:20)
[2021-04-26] MEDS: Insulin Glargine,Hum.rec.anlog 100 UNIT/ML 10 ML VIAL 12 UNIT SUBCUT (20:21)
[2021-04-26 20:23] VITALS: BP 107/76; PULSE 75; RESP 16; O2SAT 98
--- NOTE | 2021-04-26 20:43 | PC.NURSE ---
Patient in NAD, breathing even and unlabored. Patient reporting nausea. This RN told MD Tuttle. Parag to put in medication.
--- NOTE | 2021-04-26 22:12 | PC.NURSE ---
Patient reports nausea has improved at this time. Patient in NAD, breathing even and unlabored. pending pt eval in morning.
--- NOTE | 2021-04-26 23:42 | PC.NURSE ---
patient getting up ambulating around the room without difficulty and patient asking to leave. stating that he came from home [facility]. stating came from diabetic neuropathy. patient attempting to climb on the black chair at bedside to reach the curtains to hang a towel to block the light. patient stopped before he was able to . provider coming in to reevaluate. no distress no issues ambulating. patient stating waiting to go home and does not feel like he needs case management. provider asking if he has medications and resources at home. patient responding yes and is ready to return home. stating needing transportation home. will attempt to get transport. patient was previous found before shift change attempting to smoke in the bathroom.
== END 2021-04-27 01:27 | disposition home or self-care (01) ==
PROVIDERS: Emergency Provider Student in an Organized Health Care Education/Training Program; PCP Internal Medicine
DX: G89.29 Other chronic pain (principal); R10.30 Lower abdominal pain, unspecified; Z20.822 Contact with and (suspected) exposure to COVID-19; E11.40 Type 2 diabetes mellitus with diabetic neuropathy, unspecified; F10.20 Alcohol dependence, uncomplicated; F17.210 Nicotine dependence, cigarettes, uncomplicated; F12.90 Cannabis use, unspecified, uncomplicated; Z79.4 Long term (current) use of insulin
CPT/HCPCS: 36415; 80053; 82009; 82947; 85025; 87635; 96361; 96374; 96376; 99284; 99285; J2405

== ENCOUNTER 2021-05-09 15:21 | Inpatient (IN) | payer OTHER, SELFPAY ==
--- NOTE | 2021-05-09 | ECG_ITS ---
Test Reason : CHEST PAIN Blood Pressure : / mmHG Vent. Rate : 094 BPM Atrial Rate : 094 BPM P-R Int : 136 ms QRS Dur : 076 ms QT Int : 414 ms P-R-T Axes : -20 -08 148 degrees QTc Int : 517 ms Normal sinus rhythm Low voltage QRS T wave abnormality, consider lateral ischemia Prolonged QT Abnormal ECG When compared with ECG of 01-APR-2021 01:11, T wave inversion now evident in Lateral leads QT has lengthened Referred By: Generic ED Physician Electronically Signed By:LINDA BAR
--- NOTE | ~2021-05-09 | CT_ITS ---
EXAMINATION: CT ABDOMEN AND PELVIS WITH CONTRAST CLINICAL INFORMATION: Abdominal pain, nausea and vomiting. History of pancreatitis. COMPARISON: 02/27/2021 TECHNIQUE: Multidetector volumetric images were obtained from the superior aspect of the liver through the pubic symphysis following administration 85 mL of Omnipaque 350 intravenous contrast. Sagittal and coronal reformatted images were obtained on the technologist's workstation. This CT examination was performed using dose optimization techniques as appropriate, variously including the following: *Automated exposure control *Adjustment of mA and/or kV according to patient size (this includes techniques or standardized protocols for targeted exams where dose is matched to indication/reason for exam; i.e. extremities or head) *Use of iterative reconstruction technique DLP: 372 mGy-cm FINDINGS: LUNG BASES: No pulmonary consolidation or pleural effusion at either lung base. LIVER: Liver is diffusely hypodense compared to the spleen on these portal venous phase images, which suggests presence of mild steatosis. No focal liver lesion or intrahepatic bile duct dilatation. GALLBLADDER AND BILIARY TREE: The gallbladder wall appears to be mildly thickened. No calculi are seen. No focal pericholecystic fluid. PANCREAS: Pancreatic parenchyma is chronically atrophied and has scattered coarse calcifications compatible with sequela of pancreatitis. There appears to be chronic, mild dilatation of the main pancreatic duct within the severely atrophied pancreatic body. No acute pancreatic edema or new peripancreatic fluid collection. 5.6 x 5.3 cm cyst of the pancreatic tail, consistent with pseudocyst, has central attenuation of 5 HU. It has developed a more simple appearance compared to 02/27/2021. This cyst measured 4.8 x 4.4 cm on 02/27/2021. SPLEEN: Mild splenomegaly. Spleen measures up to 14 cm maximum dimension. ADRENAL GLANDS: Normal. KIDNEYS AND URETERS: The kidneys have normal size and cortical thickness. No solid mass or perinephric fluid collection. No urolithiasis or hydroureteronephrosis. 2.1 cm cortical cyst of the posterior left lower pole has a very thin septation appearance (Bosniak category 2 cyst). Note that renal imaging follow-up is not recommended for a Bosniak category 1 or category 2 cyst. No suspicious renal lesion. BLADDER: Normal. No calculi or wall thickening. BOWEL AND PERITONEUM: Stomach is unremarkable. No dilated loops of bowel. The appendix is normal. No overt bowel wall thickening or mesenteric fat stranding. No ascites or pneumoperitoneum. ABDOMINAL WALL: Unremarkable. VASCULATURE: Atherosclerosis of the abdominal aorta without aneurysm. Inferior vena cava is normal. The splenic vein is compressed and displaced by the pancreatic pseudocyst. There are perisplenic/gastroepiploic collateral veins. No splenic vein thrombosis. The portal and hepatic veins are patent. LYMPH NODES: No pathologic sized lymph nodes in the abdomen or pelvis. No inguinal lymphadenopathy. PELVIC VISCERA: Prostate gland is unremarkable. No pelvic free fluid. SKELETAL: No suspicious bone lesions. Multilevel degenerative arthropathy of the visualized spine. Degenerative disc disease is worst at L1-L2. There is mild retrolisthesis at L1-L2 and L2-L3. The severe facet osteoarthritis of L4-L5 is associated with grade 1 anterolisthesis at this level. CT/CT abdomen pelvis w con IMPRESSION: * There is an old pseudocyst of the pancreatic tail. No evidence of recurrent pancreatitis. * No evidence of inflammation or obstruction along the gastrointestinal tract. * Mild diffuse hepatic steatosis is suspected and there is mild splenomegaly. The splenic vein is compressed and displaced by the pancreatic pseudocyst. However, no evidence of venous thrombosis. Perisplenic, gastroepiploic venous collaterals are noted. * Gallbladder wall appears to be mildly thickened. This is a nonspecific finding which might be reactive to hepatic disease. No gallstones are seen. If the patient has any right upper quadrant pain, then consider correlation with right upper quadrant ultrasound.
--- NOTE | ~2021-05-09 | XR_ITS ---
EXAMINATION: XR CHEST CLINICAL INFORMATION: Cough. Chest pain COMPARISON: Chest x-ray September 25, 2020 TECHNIQUE: Frontal portable view of the chest was obtained. 1651 hours FINDINGS: No significant abnormality is noted involving the heart, lungs, mediastinum, bony thorax or soft tissues. XR/XR chest 1V IMPRESSION: Unremarkable examination.
--- NOTE | ~2021-05-09 | US_ITS ---
EXAMINATION: US ABDOMEN LIMITED CLINICAL INFORMATION: Thickened gallbladder wall. COMPARISON: CT abdomen and pelvis 10/09/2020. Renal ultrasound 08/02/2018. Ultrasound abdomen 04/11/2018. X-ray abdomen 08/28/2017 and 08/27/2017. TECHNIQUE: Real-time imaging of the right upper quadrant abdominal viscera. FINDINGS: PANCREAS: The pancreas is abnormal. There is a 5.7 by by 5.5 x 5.5 cm anechoic cyst in the region of the tail the pancreas. The pancreatic duct appears dilated. There is an echogenic calcification in the mid body pancreatic tail consistent with a ductal stone measuring 1.3 x 0.7 x 0.6 cm. There may be an additional stone in the pancreatic duct at the junction with the common bile duct. This stone may be causing obstruction and dilatation of the pancreatic duct. LIVER: Normal. The liver is normal in size. The liver contour is normal. Parenchymal echogenicity is normal. No focal hepatic lesion. There is no intrahepatic biliary duct dilatation seen. GALLBLADDER: The gallbladder wall appears thickened, measuring 1.0 cm. There is fluid within the gallbladder wall. There is layering sludge seen within the gallbladder lumen. No echogenic gallstones are seen within the gallbladder lumen. COMMON BILE DUCT: Normal in caliber measuring 0.6 cm in diameter. RIGHT KIDNEY: Normal. No hydronephrosis. No renal calculi or focal parenchymal lesions. The kidney measures 10.3 cm in maximum dimension. FREE FLUID: None. US/US abdomen limited IMPRESSION: 1. There is a dilated and possibly obstructed pancreatic duct with a 1.3 cm calcification. There is a 5.7 cm cyst in the tail the pancreas. There may be a second pancreatic ductal calcification near the head of the pancreas. 2. There is a thickened gallbladder wall with gallbladder sludge within the lumen. Cholecystitis cannot be completely excluded.
[2021-05-09 15:31] VITALS: BP 113/70; BP 130/82; PULSE 102; RESP 14; TEMP 37.1; O2SAT 95; O2SAT 96; BMI 26.6
--- NOTE | 2021-05-09 15:45 | ED_ITS ---
HPI - Chest Pain General Chief Complaint: Chest Pain Stated Complaint: chest pain, n/v Time Seen by Provider: 05/09/21 15:43 Source: patient Mode of arrival: EMS Limitations: no limitations History of Present Illness HPI narrative: 60-year-old male with a past medical history of alcoholism, diabetes, hypokalemia, hypomagnesemia, pancreatitis, presents with chest pain that started at 11:00 a.m. this morning. Patient was lying in bed and the chest pain started and has been constant, it is a dull pain in his left chest radiating down his left arm. Patient had associated symptoms of nausea and mild dyspnea. Chest pain started while he was lying in bed. He started vomiting this morning, states he vomited 12-15 times. States he has not had a drink in 2 days, but usually drinks 10 drinks a day. No history of withdrawal seizures. Patient states he has had a new cough today. MD complaint: chest pain Onset (ago): hour(s) (5) Timing of current episode: constant Prior episodes: No Onset: during rest Pain location: left chest Pain radiation: left arm Severity: moderate Quality: dull Relieving factors: nothing Associated symptoms: nausea and vomiting Treatment prior to arrival: aspirin and nitroglycerin Risk Factors Coronary artery disease risk factors: diabetes, smoking history, hyperlipidemia and hypertension Related Data Home Medications Medication Instructions Recorded Confirmed gabapentin 400 mg capsule 400 mg PO TID 02/27/21 04/26/21 insulin glargine 100 unit/mL (3 12 unit SUBCUT BEDTIME 02/27/21 04/26/21 mL) subcutaneous pen (Lantus Solostar U-100 Insulin) insulin lispro 100 unit/mL 10 unit SUBCUT TIDAC 04/01/21 04/26/21 subcutaneous pen (Humalog KwikPen (U-100) Insulin) gabapentin 100 mg tablet 100 mg PO BID@0900,1200 PRN 04/03/21 04/26/21 Allergies Allergy/AdvReac Type Severity Reaction Status Date / Time No Known Drug Allergies Allergy Unknown Verified 03/24/21 00:43 Review of Systems Constitutional: Constitutional: Denies body ache(s), Denies chills, Reports fatigue, Denies fever(s), Denies headache(s), Reports malaise and Denies weakness Eyes: Eyes: Denies diplopia ENT: Denies dizziness, Denies otalgia, Denies headache(s), Denies mouth pain, Denies post nasal drip and Denies sore throat Cardiovascular: Cardiovascular: Reports chest pain, Denies syncope, Denies leg edema, Denies lightheadedness, Denies Loss of Consciousness, Denies palpitations and Reports dyspnea Respiratory: Respiratory: Denies chest congestion, Reports cough and Reports dyspnea Gastrointestinal: Gastrointestinal: Reports abdominal pain, Denies melena, Denies hematochezia, Denies constipation, Denies diarrhea, Reports nausea, Reports vomiting and Denies hematemesis Genitourinary: Genitourinary: Reports no additional male genitourinary complaints Musculoskeletal: Musculoskeletal: Reports no additional musculoskeletal complaints Integumentary/Breasts: Skin/Breast: Denies erythema and Denies rash Neurologic: Denies confusion, Denies dizziness, Denies syncope, Denies headache(s) and Denies weakness Psychiatric: Psychiatric: Denies anxiety, Denies confusion and Denies depression Endocrine: Endocrine: Reports fatigue and Denies palpitations PMFSH Past Medical History Medical History Acidosis, lactic Acute dehydration Acute hyperglycemia Alcohol abuse Alcohol dependence with withdrawal Alcohol use disorder, severe, dependence Attention deficit disorder Degenerative disc disease, cervical Depression Diabetes mellitus Dyslipidemia Head injury History of substance abuse Hypomagnesemia Hypotestosteronism Osteoarthritis of right hand Pancreatitis Prolonged QT interval Thrombocytopenia Vomiting Surgical History History of surgery Family History Family History Father Cancer Mother Cancer Diabetes Social History Social History Household Members: None Housing: Apartment Do you presently have visiting nurse or other home services: No Unable to assess alcohol history related to: Refusing to respond Alcohol intake: current Alcohol intake frequency: 3 or more drinks per day Alcohol type: hard liquor Patient Tobacco Use Status: Current everyday Tobacco user Tobacco use type: Cigarette Cigarette Packs Per Day: 2 Cigarettes Per Day: 40.0 Use of substances other than those prescribed or required for medical reasons: No Substance Use Type: Marijuana Advance Directives: No Advance Directives Information Provided: No service: No Current occupational status: unemployed and disabled Current occupation: Right Handed Physical Exam Vital Signs: Vital Signs: Last Vital Signs Temp 98.8 F 05/09/21 15:31 Pulse 83 05/09/21 20:18 Resp 12 05/09/21 20:18 BP 123/74 05/09/21 20:18 Pulse Ox 95 05/09/21 20:18 Body Mass Index 26.6 Const: General: alert, awake, ill appearing acutely and chronically and poor hygiene; No confusion Nutritional Appearance: thin Orientation/consciousness: patient oriented x3 and No confusion Limitations: no limitations HENMT: Head: Yes normal to inspection, Yes normocephalic and Yes atraumatic Ears: hearing grossly normal bilaterally and external ears normal General nose exam: Normal external nose present Face and sinus: Yes normal facial exam Mouth: Normal oral and palatal mucosa present and mucous membranes dry Throat: Yes posterior oropharynx normal Eyes: Conjunctivae: conjunctivae normal Pupils: Equal, round and reactive pupils present EOM: EOMs intact bilaterally Neck: Neck: Yes full ROM, Yes no lymphadenopathy and Yes supple Resp: Effort & Inspection: normal respiratory effort and able to speak in complete sentences Auscultation: clear to auscultation bilaterally, no crackles, no rales, no rhonchi and no wheezes Cardio: Rate: regular rate Rhythm: regular rhythm Heart sounds: S1 normal heart sound present and S2 normal heart sound present GI: Inspection: Yes normal to inspection Palpation (GI): Soft to palpation, not firm, Tenderness to palpation present (GI) in the epigastrum, in the LLQ, in the RLQ, in the LUQ and in the RUQ, Guarding due to palpation present (GI) in the LLQ, in the RLQ, in the LUQ and in the RUQ and not rigid Percussion: Yes normal to percussion Auscultation: Hypoactive bowel sounds present Skin: General skin exam: no rashes or lesions noted Neuro: General: patient oriented x3 and No confusion Cranial nerves: Yes Equal, round and reactive pupils present Extrem: General: Yes normal to inspection and Yes full ROM Psych: Appearance: grossly normal Affect: normal affect Attitude: cooperative Thought process: Normal thought process present Course Course Course Narrative: 60-year-old diabetic alcoholic male presents with chest pain that started 11:00 a.m. today. In addition, patient has been vomiting. Patient was hyperglycemic with blood sugar initially 524, after 1 L and 10 units of insulin his blood glucose is now 349. Patient has a VBG with the normal bicarb and a pH of 7.47. Acetone is moderately high. Troponin is negative, EKG shows no acute changes. Patient has an anion gap of 27, and sodium of 129. COVID negative. Chest x-ray is negative. Awaiting abdominal CT, will repeat BMP in 1 hour and troponin Q 3 hours. Reevaluation(s) Reevaluation #1: CT shows no pancreatitis, nothing acute to explain patient's nausea and vomiting, and tenderness in abdomen. Patient's repeat troponin is only 4.3, this rules out acute ischemia. Patient's blood glucose is now 265 with 10 units of insulin and 2 L of fluid. His anion gap has resolved and is 17. Patient has negative serum ketones. Patient is hyponatremic at 1:30 a.m. and hypokalemic at 3.1. Reevaluation #2: On repeat exam, patient is still nauseous and cannot keep fluids down despite antiemetics. Patient feels that he cannot go home as he feels too weak from the nausea and vomiting Patient's chest pain has resolved completely. MDM - Chest Pain Lab Data Result diagrams: 05/09/21 16:43 05/09/21 19:54 Labs: Lab Results 05/09/21 05/09/21 05/09/21 Range/Units 15:54 16:43 16:43 WBC 7.6 (4.8-10.8) X10*3/uL RBC 3.96 L (4.60-5.80) X10*6/uL Hgb 12.0 L (14.0-18.0) g/dl Hct 33.2 L (42-52) % MCV 83.8 (80-98) fL MCH 30.3 (27.0-33.0) pg MCHC 36.1 H (31.0-36.0) g/dl RDW 12.9 (11.0-16.0) % Plt Count 66 L (160-400) X10*3/uL MPV 8.7 L (9.4-12.4) fL Immature Gran % (Auto) 0.4 (0.0-0.4) % Neut % (Auto) 70.5 (45-73) % Lymph % (Auto) 17.5 L (20-40) % Dougherty % (Auto) 10.8 (2-11) % Eos % (Auto) 0.4 (0-4) % Baso % (Auto) 0.4 (0-2) % Lymph # (Auto) 1.3 (1.2-4.9) X10*3/uL Dougherty # (Auto) 0.8 (0.1-1.2) X10*3/uL Eos # (Auto) 0.0 (0.0-0.4) X10*3/uL Baso # (Auto) 0.0 (0.0-0.2) X10*3/uL Abs Immat Gran (auto) 0.03 (0.00-0.03) X10*3/uL Absolute Neuts (auto) 5.4 (2.0-8.3) X10*3/uL Absolute Nucleated RBC 0.000 (0.0-0.012) X10*3/uL Nucleated RBC % (auto) 0.0 (0.0-0.2) /100WBC VBG pH (7.32-7.43) VBG pCO2 mmHg VBG pO2 mmHg VBG HCO3 (22-26) mmol/L VBG O2 Saturation % VBG Base Excess mmol/L Sodium 129 L (135-145) mmol/L Potassium 3.6 (3.3-5.1) mmol/L Chloride 82 L (96-108) mmol/L Carbon Dioxide 24 (22-29) mmol/L Anion Gap 27 H (12-20) BUN 10 (9-16) mg/dL Creatinine 1.17 (0.5-1.4) mg/dL Estim Creat Clear Calc 61.3 Estimated GFR > 60 POC Glucose 520 H* (60-115) mg/dL Random Glucose 517 H* (60-115) mg/dL Calcium 8.4 D (8.4-10.2) mg/dL Magnesium 1.5 L (1.6-2.6) mg/dL Total Bilirubin 1.4 H (0.0-1.0) mg/dL AST 14 (5-37) U/L ALT 10 (0-40) U/L Alkaline Phosphatase 101 (39-117) U/L Troponin I High Sens (<3.5-35.0) ng/L Total Protein 7.0 (6.5-8.0) g/dL Albumin 4.2 (3.5-5.0) g/dL Urine Color Urine Appearance Urine pH (5.0-8.0) Ur Specific [facility] (1.005-1.025) Urine Protein (NEG-TRACE) MG/DL Urine Glucose (UA) (NEG) MG/DL Urine Ketones (NEG) MG/DL Urine Blood (NEG) Urine Nitrite (NEG) Ur Leukocyte Esterase (NEG) Urine RBC (0) /HPF Urine WBC (0-4) /HPF Ur Squamous Epith Cells /LPF Urine Bacteria /LPF Ethyl Alcohol mg/dL Acetone, Qual (Negative) COVID-19 ([facility]) (Negative) COVID-19 Clin Com 05/09/21 05/09/21 05/09/21 Range/Units 16:43 16:43 16:43 WBC (4.8-10.8) X10*3/uL RBC (4.60-5.80) X10*6/uL Hgb (14.0-18.0) g/dl Hct (42-52) % MCV (80-98) fL MCH (27.0-33.0) pg MCHC (31.0-36.0) g/dl RDW (11.0-16.0) % Plt Count (160-400) X10*3/uL MPV (9.4-12.4) fL Immature Gran % (Auto) (0.0-0.4) % Neut % (Auto) (45-73) % Lymph % (Auto) (20-40) % Dougherty % (Auto) (2-11) % Eos % (Auto) (0-4) % Baso % (Auto) (0-2) % Lymph # (Auto) (1.2-4.9) X10*3/uL Dougherty # (Auto) (0.1-1.2) X10*3/uL Eos # (Auto) (0.0-0.4) X10*3/uL Baso # (Auto) (0.0-0.2) X10*3/uL Abs Immat Gran (auto) (0.00-0.03) X10*3/uL Absolute Neuts (auto) (2.0-8.3) X10*3/uL Absolute Nucleated RBC (0.0-0.012) X10*3/uL Nucleated RBC % (auto) (0.0-0.2) /100WBC VBG pH (7.32-7.43) VBG pCO2 mmHg VBG pO2 mmHg VBG HCO3 (22-26) mmol/L VBG O2 Saturation % VBG Base Excess mmol/L Sodium (135-145) mmol/L Potassium (3.3-5.1) mmol/L Chloride (96-108) mmol/L Carbon Dioxide (22-29) mmol/L Anion Gap (12-20) BUN (9-16) mg/dL Creatinine (0.5-1.4) mg/dL Estim Creat Clear Calc Estimated GFR POC Glucose (60-115) mg/dL Random Glucose (60-115) mg/dL Calcium (8.4-10.2) mg/dL Magnesium (1.6-2.6) mg/dL Total Bilirubin (0.0-1.0) mg/dL AST (5-37) U/L ALT (0-40) U/L Alkaline Phosphatase (39-117) U/L Troponin I High Sens < 3.5 (<3.5-35.0) ng/L Total Protein (6.5-8.0) g/dL Albumin (3.5-5.0) g/dL Urine Color Urine Appearance Urine pH (5.0-8.0) Ur Specific [facility] (1.005-1.025) Urine Protein (NEG-TRACE) MG/DL Urine Glucose (UA) (NEG) MG/DL Urine Ketones (NEG) MG/DL Urine Blood (NEG) Urine Nitrite (NEG) Ur Leukocyte Esterase (NEG) Urine RBC (0) /HPF Urine WBC (0-4) /HPF Ur Squamous Epith Cells /LPF Urine Bacteria /LPF Ethyl Alcohol < 10 mg/dL Acetone, Qual (Negative) COVID-19 ([facility]) Negative (Negative) COVID-19 Clin Com See Note 05/09/21 05/09/21 05/09/21 Range/Units 16:43 16:50 17:40 WBC (4.8-10.8) X10*3/uL RBC (4.60-5.80) X10*6/uL Hgb (14.0-18.0) g/dl Hct (42-52) % MCV (80-98) fL MCH (27.0-33.0) pg MCHC (31.0-36.0) g/dl RDW (11.0-16.0) % Plt Count (160-400) X10*3/uL MPV (9.4-12.4) fL Immature Gran % (Auto) (0.0-0.4) % Neut % (Auto) (45-73) % Lymph % (Auto) (20-40) % Dougherty % (Auto) (2-11) % Eos % (Auto) (0-4) % Baso % (Auto) (0-2) % Lymph # (Auto) (1.2-4.9) X10*3/uL Dougherty # (Auto) (0.1-1.2) X10*3/uL Eos # (Auto) (0.0-0.4) X10*3/uL Baso # (Auto) (0.0-0.2) X10*3/uL Abs Immat Gran (auto) (0.00-0.03) X10*3/uL Absolute Neuts (auto) (2.0-8.3) X10*3/uL Absolute Nucleated RBC (0.0-0.012) X10*3/uL Nucleated RBC % (auto) (0.0-0.2) /100WBC VBG pH 7.47 H (7.32-7.43) VBG pCO2 34 mmHg VBG pO2 46 mmHg VBG HCO3 25 (22-26) mmol/L VBG O2 Saturation 78.0 % VBG Base Excess 2.3 mmol/L Sodium (135-145) mmol/L Potassium (3.3-5.1) mmol/L Chloride (96-108) mmol/L Carbon Dioxide (22-29) mmol/L Anion Gap (12-20) BUN (9-16) mg/dL Creatinine (0.5-1.4) mg/dL Estim Creat Clear Calc Estimated GFR POC Glucose 445 H* (60-115) mg/dL Random Glucose (60-115) mg/dL Calcium (8.4-10.2) mg/dL Magnesium (1.6-2.6) mg/dL Total Bilirubin (0.0-1.0) mg/dL AST (5-37) U/L ALT (0-40) U/L Alkaline Phosphatase (39-117) U/L Troponin I High Sens (<3.5-35.0) ng/L Total Protein (6.5-8.0) g/dL Albumin (3.5-5.0) g/dL Urine Color Urine Appearance Urine pH (5.0-8.0) Ur Specific [facility] (1.005-1.025) Urine Protein (NEG-TRACE) MG/DL Urine Glucose (UA) (NEG) MG/DL Urine Ketones (NEG) MG/DL Urine Blood (NEG) Urine Nitrite (NEG) Ur Leukocyte Esterase (NEG) Urine RBC (0) /HPF Urine WBC (0-4) /HPF Ur Squamous Epith Cells /LPF Urine Bacteria /LPF Ethyl Alcohol mg/dL Acetone, Qual Moderate H (Negative) COVID-19 ([facility]) (Negative) COVID-19 Clin Com 05/09/21 05/09/21 05/09/21 Range/Units 18:51 19:13 19:54 WBC (4.8-10.8) X10*3/uL RBC (4.60-5.80) X10*6/uL Hgb (14.0-18.0) g/dl Hct (42-52) % MCV (80-98) fL MCH (27.0-33.0) pg MCHC (31.0-36.0) g/dl RDW (11.0-16.0) % Plt Count (160-400) X10*3/uL MPV (9.4-12.4) fL Immature Gran % (Auto) (0.0-0.4) % Neut % (Auto) (45-73) % Lymph % (Auto) (20-40) % Dougherty % (Auto) (2-11) % Eos % (Auto) (0-4) % Baso % (Auto) (0-2) % Lymph # (Auto) (1.2-4.9) X10*3/uL Dougherty # (Auto) (0.1-1.2) X10*3/uL Eos # (Auto) (0.0-0.4) X10*3/uL Baso # (Auto) (0.0-0.2) X10*3/uL Abs Immat Gran (auto) (0.00-0.03) X10*3/uL Absolute Neuts (auto) (2.0-8.3) X10*3/uL Absolute Nucleated RBC (0.0-0.012) X10*3/uL Nucleated RBC % (auto) (0.0-0.2) /100WBC VBG pH (7.32-7.43) VBG pCO2 mmHg VBG pO2 mmHg VBG HCO3 (22-26) mmol/L VBG O2 Saturation % VBG Base Excess mmol/L Sodium (135-145) mmol/L Potassium (3.3-5.1) mmol/L Chloride (96-108) mmol/L Carbon Dioxide (22-29) mmol/L Anion Gap (12-20) BUN (9-16) mg/dL Creatinine (0.5-1.4) mg/dL Estim Creat Clear Calc Estimated GFR POC Glucose 349 H (60-115) mg/dL Random Glucose (60-115) mg/dL Calcium (8.4-10.2) mg/dL Magnesium (1.6-2.6) mg/dL Total Bilirubin (0.0-1.0) mg/dL AST (5-37) U/L ALT (0-40) U/L Alkaline Phosphatase (39-117) U/L Troponin I High Sens 4.3 (<3.5-35.0) ng/L Total Protein (6.5-8.0) g/dL Albumin (3.5-5.0) g/dL Urine Color YELLOW Urine Appearance CLEAR Urine pH 6.0 (5.0-8.0) Ur Specific [facility] 1.020 (1.005-1.025) Urine Protein TRACE (NEG-TRACE) MG/DL Urine Glucose (UA) >=1000 H (NEG) MG/DL Urine Ketones >=80 (NEG) MG/DL Urine Blood TRACE (NEG) Urine Nitrite NEG (NEG) Ur Leukocyte Esterase NEG (NEG) Urine RBC 1-4 (0) /HPF Urine WBC 0 (0-4) /HPF Ur Squamous Epith Cells TRACE /LPF Urine Bacteria NONE /LPF Ethyl Alcohol mg/dL Acetone, Qual (Negative) COVID-19 ([facility]) (Negative) COVID-19 Clin Com 05/09/21 Range/Units 19:54 WBC (4.8-10.8) X10*3/uL RBC (4.60-5.80) X10*6/uL Hgb (14.0-18.0) g/dl Hct (42-52) % MCV (80-98) fL MCH (27.0-33.0) pg MCHC (31.0-36.0) g/dl RDW (11.0-16.0) % Plt Count (160-400) X10*3/uL MPV (9.4-12.4) fL Immature Gran % (Auto) (0.0-0.4) % Neut % (Auto) (45-73) % Lymph % (Auto) (20-40) % Dougherty % (Auto) (2-11) % Eos % (Auto) (0-4) % Baso % (Auto) (0-2) % Lymph # (Auto) (1.2-4.9) X10*3/uL [place]herty # (Auto) (0.1-1.2) X10*3/uL Eos # (Auto) (0.0-0.4) X10*3/uL Baso # (Auto) (0.0-0.2) X10*3/uL Abs Immat Gran (auto) (0.00-0.03) X10*3/uL Absolute Neuts (auto) (2.0-8.3) X10*3/uL Absolute Nucleated RBC (0.0-0.012) X10*3/uL Nucleated RBC % (auto) (0.0-0.2) /100WBC VBG pH (7.32-7.43) VBG pCO2 mmHg VBG pO2 mmHg VBG HCO3 (22-26) mmol/L VBG O2 Saturation % VBG Base Excess mmol/L Sodium 130 L (135-145) mmol/L Potassium 3.1 L (3.3-5.1) mmol/L Chloride 89 L (96-108) mmol/L Carbon Dioxide 27 (22-29) mmol/L Anion Gap 17 (12-20) BUN 9 (9-16) mg/dL Creatinine 0.97 (0.5-1.4) mg/dL Estim Creat Clear Calc 73.9 Estimated GFR > 60 POC Glucose (60-115) mg/dL Random Glucose 265 H D (60-115) mg/dL Calcium 7.6 L D (8.4-10.2) mg/dL Magnesium (1.6-2.6) mg/dL Total Bilirubin (0.0-1.0) mg/dL AST (5-37) U/L ALT (0-40) U/L Alkaline Phosphatase (39-117) U/L Troponin I High Sens (<3.5-35.0) ng/L Total Protein (6.5-8.0) g/dL Albumin (3.5-5.0) g/dL Urine Color Urine Appearance Urine pH (5.0-8.0) Ur Specific [facility] (1.005-1.025) Urine Protein (NEG-TRACE) MG/DL Urine Glucose (UA) (NEG) MG/DL Urine Ketones (NEG) MG/DL Urine Blood (NEG) Urine Nitrite (NEG) Ur Leukocyte Esterase (NEG) Urine RBC (0) /HPF Urine WBC (0-4) /HPF Ur Squamous Epith Cells /LPF Urine Bacteria /LPF Ethyl Alcohol mg/dL Acetone, Qual (Negative) COVID-19 ([facility]) (Negative) COVID-19 Clin Com ECG Data ECG #1: Interpretation: Sinus at a rate of 94. P are 136, QRS 76, patient has a prolonged QTC of 517. No ST elevations or depressions, nonspecific T-wave changes.
[2021-05-09 15:59] LABS: Glucose, Whole Blood 520 mg/dL (60-115)
[2021-05-09] MEDS: 0.9 % Sodium Chloride 1,000 ML 999 ML IV ×2 (16:29→17:43)
[2021-05-09 16:35] VITALS: BP 135/85; PULSE 84; RESP 18; O2SAT 97
[2021-05-09 16:50] LABS: MANUAL DIFF FLAG NO
[2021-05-09 16:51] LABS: Basophils Percent Auto 0.4 % (0-2); Eosinophils Percent Auto 0.4 % (0-4); Hematocrit 33.2 % (42-52); Imm Gran Abs Auto 0.03 X10*3/uL (0.00-0.03); Imm Gran Pct Auto 0.4 % (0.0-0.4); Lymphocytes Absolute Auto 1.3 X10*3/uL (1.2-4.9); Lymphocytes Percent Auto 17.5 % (20-40); Mean Corpuscular HGB Conc 36.1 g/dl (31.0-36.0); Mean Corpuscular Hemoglobin 30.3 pg (27.0-33.0); Mean Corpuscular Volume 83.8 fL (80-98); Mean Platelet Volume 8.7 fL (9.4-12.4); Monocytes Absolute Auto 0.8 X10*3/uL (0.1-1.2); Monocytes Percent Auto 10.8 % (2-11); Neutrophils Absolute Auto 5.4 X10*3/uL (2.0-8.3); Neutrophils Percent Auto 70.5 % (45-73); Red Blood Count 3.96 X10*6/uL (4.60-5.80); Red Cell Distribution Width 12.9 % (11.0-16.0); White Blood Count 7.6 X10*3/uL (4.8-10.8)
[2021-05-09 16:52] LABS: Platelet Count 66 X10*3/uL (160-400)
[2021-05-09 16:55] LABS: VBG Base Excess 2.3 mmol/L; VBG HCO3 25 mmol/L (22-26); VBG pCO2 34 mmHg; VBG pH 7.47 (7.32-7.43); VBG pO2 46 mmHg
[2021-05-09 16:56] LABS: Venous Blood Gas Refer to POC result
[2021-05-09 17:04] LABS: COVID-19 Test Negative (Negative)
[2021-05-09 17:17] LABS: Ethanol < 10 mg/dL
[2021-05-09 17:20] LABS: Troponin-I High Sensitivity < 3.5 ng/L (<3.5-35.0)
[2021-05-09 17:36] LABS: Alanine Aminotransferase 10 U/L (0-40); Albumin Level 4.2 g/dL (3.5-5.0); Alkaline Phosphatase 101 U/L (39-117); Anion Gap 27 (12-20); Aspartate Amino Transferase 14 U/L (5-37); Bilirubin Total 1.4 mg/dL (0.0-1.0); Blood Urea Nitrogen 10 mg/dL (9-16); Calcium 8.4 mg/dL (8.4-10.2); Carbon Dioxide 24 mmol/L (22-29); Chloride 82 mmol/L (96-108); Creatinine Clr Calc Pharmacy 61.3; Estimated Glomerular Filt Rate > 60; Glucose Random 517 mg/dL (60-115); Magnesium 1.5 mg/dL (1.6-2.6); Potassium 3.6 mmol/L (3.3-5.1); Sodium 129 mmol/L (135-145)
[2021-05-09 17:38] LABS: Acetone, serum QL Moderate (Negative)
[2021-05-09 17:44] LABS: Glucose, Whole Blood 445 mg/dL (60-115)
[2021-05-09] MEDS: Insulin Regular, Human 100 UNIT/ML 3 ML VIAL 10 UNIT IVPUSH (17:51)
[2021-05-09] MEDS: iohexoL 350 MG/ML 100 ML INFUS..BTL IV (18:31)
[2021-05-09 18:55] LABS: Glucose, Whole Blood 349 mg/dL (60-115)
[2021-05-09 19:10] VITALS: BP 136/80; PULSE 87; RESP 15; O2SAT 93
[2021-05-09 19:27] LABS: Appearance Urine CLEAR; Color Urine YELLOW; Glucose Urine UA >=1000 MG/DL (NEG); Leukocyte Esterase Urine NEG (NEG); Nitrite Urine NEG (NEG); Urine Blood TRACE (NEG); Urine Ketones >=80 MG/DL (NEG); Urine Protein TRACE MG/DL (NEG-TRACE)
[2021-05-09 19:36] LABS: Squamous Epithelial Cell Urine TRACE /LPF; WBC Urine 0 /HPF (0-4)
[2021-05-09] MEDS: Nicotine 21 MG PATCH.TD24 TRANSDERMA (19:47)
[2021-05-09] MEDS: Potassium Chloride Packet 20 MEQ PACKET 40 MEQ PO (19:47)
[2021-05-09] MEDS: Magnesium Sulfate/H2O 2 GM/50 ML PIGGYBACK IV (19:47)
[2021-05-09 20:14] LABS: Anion Gap 17 (12-20); Blood Urea Nitrogen 9 mg/dL (9-16); Calcium 7.6 mg/dL (8.4-10.2); Carbon Dioxide 27 mmol/L (22-29); Chloride 89 mmol/L (96-108); Creatinine Clr Calc Pharmacy 73.9; Estimated Glomerular Filt Rate > 60; Glucose Random 265 mg/dL (60-115); Potassium 3.1 mmol/L (3.3-5.1); Sodium 130 mmol/L (135-145)
[2021-05-09 20:18] VITALS: BP 123/74; PULSE 83; RESP 12; O2SAT 95
[2021-05-09 20:21] LABS: Troponin-I High Sensitivity 4.3 ng/L (<3.5-35.0)
--- NOTE | 2021-05-09 21:43 | PHA.MEDREC ---
Pharmacy Consult ? Medication Reconciliation Pharmacy has completed the medication reconciliation. Patient reports taking medications, although they have not been filled for quite some time. Yolanda YoungD
[2021-05-09 22:12] VITALS: BP 136/83; PULSE 81; RESP 21
[2021-05-09] MEDS: ondansetron HCL 4 MG/2 ML VIAL IVPUSH (22:30)
--- NOTE | 2021-05-09 22:42 | PM.IMHP ---
History of Present Illness Date of Service: 05/09/21 Chief Complaint: Nausea/vomiting 61-year-old male with a past medical history of hypertension, hyperlipidemia, diabetes, anxiety, depression, alcohol abuse, osteoarthritis, history of pancreatitis, thrombocytopenia, prolonged QTC, presented to the hospital with a chief complaint of and vomiting. Patient reports that over the past couple days he has increased episodes of nausea vomiting and abdominal discomfort; denies any blood in the vomitus. Mentions that he has been drinking alcohol about 10 drinks per day but last drink was 2 days ago; denies any seizure-like activity. Denies any blood in the vomitus. Denies any blood in the stool. Patient reports he has reduced oral intake. Denies any chest pain palpitations lightheadedness or dizziness. Denies any numbness tingling or focal weakness. Denies any falls. Review of all other systems is except mentioned above Course: Per ER team patient noted to have severe; also noted to have elevated blood glucose levels and anion gap; given regular insulin IV push and IV fluids with improvement in anion gap; CT abdomen showed old pseudocyst at pancreatic tail, hepatic steatosis, mild gallbladder wall thickening; patient was afebrile and has no leukocytosis; antibiotics were not given. ER team mentioned that they tried to. Seven patient but patient failed. Admitted to the hospital for further management. [facility] Medical History (Updated 05/09/21 @ 22:43 by Eamon Longoria MD) Acidosis, lactic Acute dehydration Acute hyperglycemia Alcohol abuse Alcohol dependence with withdrawal Alcohol use disorder, severe, dependence Attention deficit disorder Degenerative disc disease, cervical Depression Diabetes mellitus Dyslipidemia Head injury History of substance abuse Hypomagnesemia Hypotestosteronism Osteoarthritis of right hand Pancreatitis Prolonged QT interval Thrombocytopenia Vomiting Family History Father Cancer Mother Cancer Diabetes Pertinent family history: Reviewed Surgical History History of surgery Social History Household Members: None Housing: Apartment Do you presently have visiting nurse or other home services: No Unable to assess alcohol history related to: Refusing to respond Alcohol intake: current Alcohol intake frequency: 3 or more drinks per day Alcohol type: hard liquor Patient Tobacco Use Status: Current everyday Tobacco user Tobacco use type: Cigarette Cigarette Packs Per Day: 2 Cigarettes Per Day: 40.0 Use of substances other than those prescribed or required for medical reasons: No Substance Use Type: Marijuana Advance Directives: No Advance Directives Information Provided: No service: No Current occupational status: unemployed and disabled Current occupation: Right Handed Meds Allergies Allergy/AdvReac Type Severity Reaction Status Date / Time No Known Drug Allergies Allergy Unknown Verified 03/24/21 00:43 Active Medications: Current Medications Acetaminophen (Acetaminophen 325 Mg Tablet) 650 mg PO Q6H PRN PRN Reason: Pain, Mild (Pain Scale 1-3) Dextrose (Dextrose 50 % 25 Gm/50 Ml Vial) 25 gm IVPUSH Q15M PRN; Protocol PRN Reason: per Hypoglycemia Standing Ord. Famotidine (Famotidine/Pf 20 Mg/2 Ml Vial) 20 mg IVPUSH BID JOSE Glucose (Glucose Gel 15 Gm Gel..Gram.) 15 gm PO Q15M PRN; Protocol PRN Reason: per Hypoglycemia Standing Ord. Sodium Chloride (Ns) 1,000 mls @ 100 mls/hr IVCONT .Q10H [facility] Insulin Human Lispro (Insulin Lispro 100 Unit/Ml 3 Ml Vial) 0 unit SUBCUT QIDACHS [facility]; Protocol Melatonin (Melatonin 3 Mg Tablet) 6 mg PO BEDTIME PRN PRN Reason: Insomnia Ondansetron HCl (Ondansetron Hcl 4 Mg/2 Ml Vial) 4 mg IVPUSH Q8H PRN PRN Reason: Nausea and Vomiting Pharmacy Consult (Consult Rx Perform Med Rec) 1 each MISCELLANE ONCE PRN PRN Reason: Consult order Senna (Sennosides 8.6 Mg Tablet) 17.2 mg PO BEDTIME PRN PRN Reason: Constipation Sodium Chloride (0.9 % Sodium Chloride Flush 3 Ml Syringe) 3 ml IVFLUSH QSHIFT [facility] Home Medications Medication Instructions Recorded Confirmed Last Taken Type gabapentin 400 mg capsule 400 mg PO TID 02/27/21 05/09/21 05/09/21 History insulin glargine 100 unit/mL (3 12 unit SUBCUT BEDTIME 02/27/21 05/09/21 04/02/21 History mL) subcutaneous pen (Lantus Solostar U-100 Insulin) insulin lispro 100 unit/mL 10 unit SUBCUT TIDAC 04/01/21 05/09/2104/02/21 History subcutaneous pen (Humalog KwikPen (U-100) Insulin) Physical Exam Vital Signs and Narrative: Vital Signs: Last Vital Signs Temp 98.8 F 05/09/21 15:31 Pulse 81 05/09/21 22:12 Resp 21 H 05/09/21 22:12 BP 136/83 05/09/21 22:12 Pulse Ox 95 05/09/21 20:18 Body Mass Index 26.6 Gen: Appears be in no acute distress HEENT: NCAT, Moist mucosa. Pulmonary: Vesicular breath sounds, fair air entry CVS: Normal S1-S2 Abdomen: BS+, Soft, Nontender Extremities: Warm well perfused Neuro: Alert and awake. Results Labs CBC and Chem 7: 05/09/21 16:43 05/09/21 19:54 Labs: Laboratory Results - last 24 hr 05/09/21 05/09/21 05/09/21 15:54 16:43 16:43 MCV 83.8 MCH 30.3 MCHC 36.1 H RDW 12.9 Plt Count 66 L MPV 8.7 L Immature Gran % (Auto) 0.4 Neut % (Auto) 70.5 Lymph % (Auto) 17.5 L [place] % (Auto) 10.8 Eos % (Auto) 0.4 Baso % (Auto) 0.4 Lymph # (Auto) 1.3 [place] # (Auto) 0.8 Eos # (Auto) 0.0 Baso # (Auto) 0.0 Abs Immat Gran (auto) 0.03 Absolute Neuts (auto) 5.4 Absolute Nucleated RBC 0.000 Nucleated RBC % (auto) 0.0 VBG pH VBG pCO2 VBG pO2 VBG HCO3 VBG O2 Saturation VBG Base Excess Anion Gap 27 H Estim Creat Clear Calc 61.3 Estimated GFR > 60 POC Glucose 520 H* Random Glucose 517 H* Calcium 8.4 D Magnesium 1.5 L Total Bilirubin 1.4 H AST 14 ALT 10 Alkaline Phosphatase 101 Troponin I High Sens Total Protein 7.0 Albumin 4.2 Urine Color Urine Appearance Urine pH Ur Specific Le[place] Urine Protein Urine Glucose (UA) Urine Ketones Urine Blood Urine Nitrite Ur Leukocyte Esterase Urine RBC Urine WBC Ur Squamous Epith Cells Urine Bacteria Ethyl Alcohol Acetone, Qual COVID-19 ([facility]) COVID-19 Clin Com 05/09/21 05/09/21 05/09/21 16:43 16:43 16:43 MCV MCH MCHC RDW Plt Count MPV Immature Gran % (Auto) Neut % (Auto) Lymph % (Auto) [place] % (Auto) Eos % (Auto) Baso % (Auto) Lymph # (Auto) [place] # (Auto) Eos # (Auto) Baso # (Auto) Abs Immat Gran (auto) Absolute Neuts (auto) Absolute Nucleated RBC Nucleated RBC % (auto) VBG pH VBG pCO2 VBG pO2 VBG HCO3 VBG O2 Saturation VBG Base Excess Anion Gap Estim Creat Clear Calc Estimated GFR POC Glucose Random Glucose Calcium Magnesium Total Bilirubin AST ALT Alkaline Phosphatase Troponin I High Sens < 3.5 Total Protein Albumin Urine Color Urine Appearance Urine pH Ur Specific Leivasy Urine Protein Urine Glucose (UA) Urine Ketones Urine Blood Urine Nitrite Ur Leukocyte Esterase Urine RBC Urine WBC Ur Squamous Epith Cells Urine Bacteria Ethyl Alcohol < 10 Acetone, Qual COVID-19 ([facility]) Negative COVID-19 Clin Com See Note 05/09/21 05/09/21 05/09/21 16:43 16:50 17:40 MCV MCH MCHC RDW Plt Count MPV Immature Gran % (Auto) Neut % (Auto) Lymph % (Auto) [place] % (Auto) Eos % (Auto) Baso % (Auto) Lymph # (Auto) [place] # (Auto) Eos # (Auto) Baso # (Auto) Abs Immat Gran (auto) Absolute Neuts (auto) Absolute Nucleated RBC Nucleated RBC % (auto) VBG pH 7.47 H VBG pCO2 34 VBG pO2 46 VBG HCO3 25 VBG O2 Saturation 78.0 VBG Base Excess 2.3 Anion Gap Estim Creat Clear Calc Estimated GFR POC Glucose 445 H* Random Glucose Calcium Magnesium Total Bilirubin AST ALT Alkaline Phosphatase Troponin I High Sens Total Protein Albumin Urine Color Urine Appearance Urine pH Ur Specific [place]iv[place] Urine Protein Urine Glucose (UA) Urine Ketones Urine Blood Urine Nitrite Ur Leukocyte Esterase Urine RBC Urine WBC Ur Squamous Epith Cells Urine Bacteria Ethyl Alcohol Acetone, Qual Moderate H COVID-19 ([facility]) COVID-ITC Com 05/09/21 05/09/21 05/09/21 18:51 19:13 19:54 MCV MCH MCHC RDW Plt Count MPV Immature Gran % (Auto) Neut % (Auto) Lymph % (Auto) [place] % (Auto) Eos % (Auto) Baso % (Auto) Lymph # (Auto) [place] # (Auto) Eos # (Auto) Baso # (Auto) Abs Immat Gran (auto) Absolute Neuts (auto) Absolute Nucleated RBC Nucleated RBC % (auto) VBG pH VBG pCO2 VBG pO2 VBG HCO3 VBG O2 Saturation VBG Base Excess Anion Gap Estim Creat Clear Calc Estimated GFR POC Glucose 349 H Random Glucose Calcium Magnesium Total Bilirubin AST ALT Alkaline Phosphatase Troponin I High Sens 4.3 Total Protein Albumin Urine Color YELLOW Urine Appearance CLEAR Urine pH 6.0 Ur Specific [place] 1.020 Urine Protein TRACE Urine Glucose (UA) >=1000 H Urine Ketones >=80 Urine Blood TRACE Urine Nitrite NEG Ur Leukocyte Esterase NEG Urine RBC 1-4 Urine WBC 0 Ur Squamous Epith Cells TRACE Urine Bacteria NONE Ethyl Alcohol Acetone, Qual COVID-19 ([facility]) COVID-19 [employer] Com 05/09/21 19:54 MCV MCH MCHC RDW Plt Count MPV Immature Gran % (Auto) Neut % (Auto) Lymph % (Auto) [place] % (Auto) Eos % (Auto) Baso % (Auto) Lymph # (Auto) [place] # (Auto) Eos # (Auto) Baso # (Auto) Abs Immat Gran (auto) Absolute Neuts (auto) Absolute Nucleated RBC Nucleated RBC % (auto) VBG pH VBG pCO2 VBG pO2 VBG HCO3 VBG O2 Saturation VBG Base Excess Anion Gap 17 Estim Creat Clear Calc 73.9 Estimated GFR > 60 POC Glucose Random Glucose 265 H D Calcium 7.6 L D Magnesium Total Bilirubin AST ALT Alkaline Phosphatase Troponin I High Sens Total Protein Albumin Urine Color Urine Appearance Urine pH Ur Specific [place]asy Urine Protein Urine Glucose (UA) Urine Ketones Urine Blood Urine Nitrite Ur Leukocyte Esterase Urine RBC Urine WBC Ur Squamous Epith Cells Urine Bacteria Ethyl Alcohol Acetone, Qual COVID-19 ([facility]) COVID-19 Clin Com Imaging Radiologist's Impressions: Impressions Abdomen/Pelvis CT 05/09/21 15:58 IMPRESSION: * There is an old pseudocyst of the pancreatic tail. No evidence of recurrent pancreatitis. * No evidence of inflammation or obstruction along the gastrointestinal tract. * Mild diffuse hepatic steatosis is suspected and there is mild splenomegaly. The splenic vein is compressed and displaced by the pancreatic pseudocyst. However, no evidence of venous thrombosis. Perisplenic, gastroepiploic venous collaterals are noted. * Gallbladder wall appears to be mildly thickened. This is a nonspecific finding which might be reactive to hepatic disease. No gallstones are seen. If the patient has any right upper quadrant pain, then consider correlation with right upper quadrant ultrasound. Chest X-Ray 05/09/21 15:58 IMPRESSION: Unremarkable examination. Assessment and Plan (1) Intractable nausea and vomiting: Status: Acute (2) Acute hyperglycemia: Status: Acute (3) Alcoholic gastritis: Qualifiers: Chronicity: chronic Gastritis bleeding: without bleeding Qualified Code(s): K29.20 - Alcoholic gastritis without bleeding Status: Acute (4) Alcohol abuse: Status: Acute (5) Diabetes mellitus: Status: Acute 61-year-old male with a past medical history of hypertension, hyperlipidemia, diabetes, alcohol abuse, alcoholic gastritis, history of pancreatitis, history of pseudocyst, anxiety, depression presented to the hospital with a chief complaint of nausea vomiting; noted to have elevated blood glucose consult mild DKA; improved with IV fluids and regular insulin. Admitted to the hospital for further management. Diabetes/hyperglycemia: Concern for medication compliance. Sliding scale. Monitor fingerstick glucose and adjust insulins as needed. Ketoacidosis: IV fluids. Nausea/vomiting: Likely alcoholic gastritis. IV Pepcid. Advanced diet as tolerated. Abdominal discomfort: Likely from nausea and vomiting/gastritis. Exam is fairly benign. Lipase levels pending. CT scan showed no acute process but noted pseudocyst at the pancreatic tail. Also noted mild gallbladder wall thickening-patient afebrile and has no leukocytosis; no hold off antibiotics. Will obtain HIDA scan to rule out cholecystitis. Diabetes:Lantus Plus Insulin sliding scale; monitor fingerstick glucose Hypomagnesemia/hypokalemia: Repleted in the ER. alcohol abuse: Will keep the patient on thiamine, folate, multivitamins. Monitor on CIWA protocol with Ativan. DVT prophylaxis: SCD boots Code status: Full code Quality Stroke Does the patient have a stroke diagnosis?: No VTE Prior VTE?: No VTE Risk Level:: Medical - moderate - high VTE Device Contraindication: N/A - Device Ordered VTE Drug Contraindication: Treatment Not Indicated
[2021-05-10 00:39] LABS: Lipase 18 U/L (8-78)
[2021-05-10] MEDS: LORazepam 1 MG TABLET 0.5 MG PO ×4 (00:57→23:13)
[2021-05-10] MEDS: Acetaminophen 325 MG TABLET 650 MG PO (00:57)
[2021-05-10] MEDS: 0.9 % Sodium Chloride 1,000 ML 100 ML IVCONT ×3 (01:01→18:41)
[2021-05-10 02:02] LABS: Glucose, Whole Blood 289 mg/dL (60-115)
[2021-05-10 02:43] VITALS: BP 130/76; PULSE 80; RESP 14; O2SAT 94
[2021-05-10] MEDS: LORazepam 1 MG TABLET PO (03:43)
--- NOTE | 2021-05-10 03:53 | PC.NURSE ---
PT STATES I FEEL LIKE I AM HAVING D/T'S PT IS NOT SWEATY BUT DOES APPEAR SLIGHTLY RESTLESS, NO SHAKING. OFFERED PRN LORAZEPAM FOR BREAKTHROUGH WITHDRAWL
--- NOTE | 2021-05-10 05:05 | PC.NURSE ---
ATTTEMPTED TO WAKE PT FOR 0445 DOSE OF ATIVAN, PT VERY SLEEPY, IMMEDIATLEY BACK TO SLEEP, WOKE AGAIN, PT DOES NOT WANT PO ATIVAN AT THIS TIME.
[2021-05-10 07:08] LABS: MANUAL DIFF FLAG NO
[2021-05-10 07:13] LABS: Basophils Percent Auto 0.4 % (0-2); Eosinophils Percent Auto 0.4 % (0-4); Hematocrit 27.1 % (42-52); Hemoglobin 9.8 g/dl (14.0-18.0); Imm Gran Abs Auto 0.01 X10*3/uL (0.00-0.03); Imm Gran Pct Auto 0.4 % (0.0-0.4); Lymphocytes Absolute Auto 1.5 X10*3/uL (1.2-4.9); Lymphocytes Percent Auto 52.5 % (20-40); Mean Corpuscular HGB Conc 36.2 g/dl (31.0-36.0); Mean Corpuscular Hemoglobin 30.9 pg (27.0-33.0); Mean Corpuscular Volume 85.5 fL (80-98); Mean Platelet Volume 9.3 fL (9.4-12.4); Monocytes Absolute Auto 0.3 X10*3/uL (0.1-1.2); Monocytes Percent Auto 10.4 % (2-11); Neutrophils Percent Auto 35.9 % (45-73); Red Blood Count 3.17 X10*6/uL (4.60-5.80); Red Cell Distribution Width 12.8 % (11.0-16.0); White Blood Count 2.8 X10*3/uL (4.8-10.8)
[2021-05-10 07:18] LABS: Platelet Count 34 X10*3/uL (160-400)
--- NOTE | 2021-05-10 07:24 | P.PNIM_ITS ---
Subjective Subjective Date of Service: 05/10/21 Interval History: f/u on gastritis, dka. DKA resovled, n/v resolved. Review of Systems no n/v no fever Physical Exam Vital Signs: Vital Signs: Last Vital Signs Temp 98.8 F 05/09/21 15:31 Pulse 80 05/10/21 02:43 Resp 14 05/10/21 02:43 BP 130/76 05/10/21 02:43 Pulse Ox 94 05/10/21 02:43 Body Mass Index 26.6 General: AO X 3, no acute distress Resp: CTA bilateral CVS: S1,S2,RRR GI: +BS, NT, no distention Skin: No rash Neuro: motor grossly intact Psych: appropriate affect Objective Data Active Medications Acetaminophen (Acetaminophen 325 Mg Tablet) 650 mg PO Q6H PRN PRN Reason: Pain, Mild (Pain Scale 1-3) Last Admin: 05/10/21 00:57 Dose: 650 mg Documented by: JAMAAL Dextrose (Dextrose 50 % 25 Gm/50 Ml Vial) 25 gm IVPUSH Q15M PRN; Protocol PRN Reason: per Hypoglycemia Standing Ord. Famotidine (Famotidine/Pf 20 Mg/2 Ml Vial) 20 mg IVPUSH BID JOSE Folic Acid (Folic Acid 1 Mg Tablet) 1 mg PO DAILY JOSE Stop: 05/13/21 08:59 Glucose (Glucose Gel 15 Gm Gel..Gram.) 15 gm PO Q15M PRN; Protocol PRN Reason: per Hypoglycemia Standing Ord. Sodium Chloride (Ns) 1,000 mls @ 100 mls/hr IVCONT .Q10H [facility] Last Admin: 05/10/21 01:01 Dose: 100 mls/hr Documented by: JAMAAL Insulin Glargine (Insulin Glargine,Hum.Rec.Anlog 100 Unit/Ml 10 Ml Vial) 10 unit SUBCUT BEDTIME JOSE Insulin Human Lispro (Insulin Lispro 100 Unit/Ml 3 Ml Vial) 0 unit SUBCUT QIDACHS [facility]; Protocol Lorazepam (Lorazepam 1 Mg Tablet) 1 mg PO Q4H JOSE; Taper Stop: 05/14/21 00:44 Last Admin: 05/10/21 00:57 Dose: 1 mg Documented by: JAMAAL Lorazepam (Lorazepam 1 Mg Tablet) 1 mg PO Q4H PRN PRN Reason: Breakthrough alcohol withdrawa Stop: 05/13/21 22:40 Last Admin: 05/10/21 03:43 Dose: 1 mg Documented by: JAMAAL Melatonin (Melatonin 3 Mg Tablet) 6 mg PO BEDTIME PRN PRN Reason: Insomnia Multivitamins/Vitamin C (Multivitamin Tablet) 1 tab PO DAILY [facility] Stop: 05/13/21 08:59 Ondansetron HCl (Ondansetron Hcl 4 Mg/2 Ml Vial) 4 mg IVPUSH Q8H PRN PRN Reason: Nausea and Vomiting Pharmacy Consult (Consult Rx Perform Med Rec) 1 each MISCELLANE ONCE PRN PRN Reason: Consult order Senna (Sennosides 8.6 Mg Tablet) 17.2 mg PO BEDTIME PRN PRN Reason: Constipation Sodium Chloride (0.9 % Sodium Chloride Flush 3 Ml Syringe) 3 ml IVFLUSH QSHIFT JOSE Last Admin: 05/10/21 01:17 Dose: Not Given Documented by: JAMAAL Non-Admin Reason: Med Not Available Thiamine HCl (Thiamine Hcl 100 Mg Tablet) 100 mg PO DAILY [facility] Stop: 05/13/21 08:59 Labs CBC & Chem 7: 05/10/21 06:46 05/10/21 06:46 Labs: Laboratory Results - last 24 hr 05/09/21 05/09/21 05/09/21 15:54 16:43 16:43 MCV 83.8 MCH 30.3 MCHC 36.1 H RDW 12.9 Plt Count 66 L MPV 8.7 L Immature Gran % (Auto) 0.4 Neut % (Auto) 70.5 Lymph % (Auto) 17.5 L Dale % (Auto) 10.8 Eos % (Auto) 0.4 Baso % (Auto) 0.4 Lymph # (Auto) 1.3 Dale # (Auto) 0.8 Eos # (Auto) 0.0 Baso # (Auto) 0.0 Abs Immat Gran (auto) 0.03 Absolute Neuts (auto) 5.4 Absolute Nucleated RBC 0.000 Nucleated RBC % (auto) 0.0 VBG pH VBG pCO2 VBG pO2 VBG HCO3 VBG O2 Saturation VBG Base Excess Anion Gap 27 H Estim Creat Clear Calc 61.3 Estimated GFR > 60 POC Glucose 520 H* Random Glucose 517 H* Calcium 8.4 D Magnesium 1.5 L Total Bilirubin 1.4 H AST 14 ALT 10 Alkaline Phosphatase 101 Troponin I High Sens Total Protein 7.0 Albumin 4.2 Lipase 18 Urine Color Urine Appearance Urine pH Ur Specific [place] Urine Protein Urine Glucose (UA) Urine Ketones Urine Blood Urine Nitrite Ur Leukocyte Esterase Urine RBC Urine WBC Ur Squamous Epith Cells Urine Bacteria Ethyl Alcohol Acetone, Qual COVID-19 (KAYLA) COVID-19 Clin Com 05/09/21 05/09/21 05/09/21 16:43 16:43 16:43 MCV MCH MCHC RDW Plt Count MPV Immature Gran % (Auto) Neut % (Auto) Lymph % (Auto) Dale % (Auto) Eos % (Auto) Baso % (Auto) Lymph # (Auto) Dale # (Auto) Eos # (Auto) Baso # (Auto) Abs Immat Gran (auto) Absolute Neuts (auto) Absolute Nucleated RBC Nucleated RBC % (auto) VBG pH VBG pCO2 VBG pO2 VBG HCO3 VBG O2 Saturation VBG Base Excess Anion Gap Estim Creat Clear Calc Estimated GFR POC Glucose Random Glucose Calcium Magnesium Total Bilirubin AST ALT Alkaline Phosphatase Troponin I High Sens < 3.5 Total Protein Albumin Lipase Urine Color Urine Appearance Urine pH Ur Specific [place] Urine Protein Urine Glucose (UA) Urine Ketones Urine Blood Urine Nitrite Ur Leukocyte Esterase Urine RBC Urine WBC Ur Squamous Epith Cells Urine Bacteria Ethyl Alcohol < 10 Acetone, Qual COVID-19 (KAYLA) Negative COVID-19 Clin Com See Note 05/09/21 05/09/21 05/09/21 16:43 16:50 17:40 MCV MCH MCHC RDW Plt Count MPV Immature Gran % (Auto) Neut % (Auto) Lymph % (Auto) Dale % (Auto) Eos % (Auto) Baso % (Auto) Lymph # (Auto) Dale # (Auto) Eos # (Auto) Baso # (Auto) Abs Immat Gran (auto) Absolute Neuts (auto) Absolute Nucleated RBC Nucleated RBC % (auto) VBG pH 7.47 H VBG pCO2 34 VBG pO2 46 VBG HCO3 25 VBG O2 Saturation 78.0 VBG Base Excess 2.3 Anion Gap Estim Creat Clear Calc Estimated GFR POC Glucose 445 H* Random Glucose Calcium Magnesium Total Bilirubin AST ALT Alkaline Phosphatase Troponin I High Sens Total Protein Albumin Lipase Urine Color Urine Appearance Urine pH Ur Specific [place] Urine Protein Urine Glucose (UA) Urine Ketones Urine Blood Urine Nitrite Ur Leukocyte Esterase Urine RBC Urine WBC Ur Squamous Epith Cells Urine Bacteria Ethyl Alcohol Acetone, Qual Moderate H COVID-19 (KAYLA) COVID-19 [facility] Com 05/09/21 05/09/21 05/09/21 18:51 19:13 19:54 MCV MCH MCHC RDW Plt Count MPV Immature Gran % (Auto) Neut % (Auto) Lymph % (Auto) Dale % (Auto) Eos % (Auto) Baso % (Auto) Lymph # (Auto) Dale # (Auto) Eos # (Auto) Baso # (Auto) Abs Immat Gran (auto) Absolute Neuts (auto) Absolute Nucleated RBC Nucleated RBC % (auto) VBG pH VBG pCO2 VBG pO2 VBG HCO3 VBG O2 Saturation VBG Base Excess Anion Gap Estim Creat Clear Calc Estimated GFR POC Glucose 349 H Random Glucose Calcium Magnesium Total Bilirubin AST ALT Alkaline Phosphatase Troponin I High Sens 4.3 Total Protein Albumin Lipase Urine Color YELLOW Urine Appearance CLEAR Urine pH 6.0 Ur Specific [place] 1.020 Urine Protein TRACE Urine Glucose (UA) >=1000 H Urine Ketones >=80 Urine Blood TRACE Urine Nitrite NEG Ur Leukocyte Esterase NEG Urine RBC 1-4 Urine WBC 0 Ur Squamous Epith Cells TRACE Urine Bacteria NONE Ethyl Alcohol Acetone, Qual COVID-19 (KAYLA) COVID-19 [facility] Com 05/09/21 05/10/21 05/10/21 19:54 01:58 06:46 MCV 85.5 MCH 30.9 MCHC 36.2 H RDW 12.8 Plt Count 34 L D MPV 9.3 L Immature Gran % (Auto) 0.4 Neut % (Auto) 35.9 L Lymph % (Auto) 52.5 H [place] % (Auto) 10.4 Eos % (Auto) 0.4 Baso % (Auto) 0.4 Lymph # (Auto) 1.5 Dale # (Auto) 0.3 Eos # (Auto) 0.0 Baso # (Auto) 0.0 Abs Immat Gran (auto) 0.01 Absolute Neuts (auto) 1.0 L Absolute Nucleated RBC 0.000 Nucleated RBC % (auto) 0.0 VBG pH VBG pCO2 VBG pO2 VBG HCO3 VBG O2 Saturation VBG Base Excess Anion Gap 17 Estim Creat Clear Calc 73.9 Estimated GFR > 60 POC Glucose 289 H Random Glucose 265 H D Calcium 7.6 L D Magnesium Total Bilirubin AST ALT Alkaline Phosphatase Troponin I High Sens Total Protein Albumin Lipase Urine Color Urine Appearance Urine pH Ur Specific [place] Urine Protein Urine Glucose (UA) Urine Ketones Urine Blood Urine Nitrite Ur Leukocyte Esterase Urine RBC Urine WBC Ur Squamous Epith Cells Urine Bacteria Ethyl Alcohol Acetone, Qual COVID-19 ([facility]AYLA) COVID-19 Clin Com Assessment and Plan (1) Diabetes mellitus: Status: Acute (2) Alcoholic gastritis: Status: Acute (3) DKA (diabetic ketoacidosis): Status: Acute Assessment and Plan: 61-year-old male with a past medical history of hypertension, hyperlipidemia, diabetes, alcohol abuse, alcoholic gastritis, history of pancreatitis, history of pseudocyst, anxiety, depression presented to the hospital with a chief complaint of nausea vomiting; noted to have elevated blood glucose level, high anion gap and high Acetone level consistent with mild DKA. Mild DKA--resolved with IVF, he is non compliant and drink alcohol as part of the problem Nausea/vomiting. Abdominal discomfort? Likely alcoholic gastritis.? IV Pepcid.? Advanced diet as tolerated. Abdominal discomfort, n/v:? Likely from gastritis.? Bening exam.?normal lipase.? CT scan showed no acute process but noted pseudocyst at the pancreatic tail.? Also noted mild gallbladder wall thickening-patient afebrile and has no leukocytosis? HIDA scan to rule out cholecystitis. Diabetes: unonctrolled, non compliant. Lantus Plus Insulin sliding scale; Hypomagnesemia/hypokalemia:?supplement give ?Alcohol dependence? : CIWA, thiamine, folate, cessation discussed, counceling Advance diet and if tolerate should go home DVT prophylaxis:? SCD boots Code status:? Full code Quality Stroke Does the patient have a stroke diagnosis?: No VTE Prior VTE?: No VTE Risk Level:: Medical - moderate - high VTE Device Contraindication: N/A - Device Ordered VTE Drug Contraindication: Treatment Not Indicated
[2021-05-10 07:40] LABS: Anion Gap 15 (12-20); Blood Urea Nitrogen 7 mg/dL (9-16); Calcium 7.8 mg/dL (8.4-10.2); Carbon Dioxide 26 mmol/L (22-29); Chloride 95 mmol/L (96-108); Creatinine Clr Calc Pharmacy 81.4; Estimated Glomerular Filt Rate > 60; Glucose Random 281 mg/dL (60-115); Potassium 3.7 mmol/L (3.3-5.1); Sodium 132 mmol/L (135-145)
[2021-05-10 08:20] LABS: Glucose, Whole Blood 254 mg/dL (60-115)
[2021-05-10] MEDS: Famotidine/PF 20 MG/2 ML VIAL IVPUSH ×2 (09:07→23:14)
[2021-05-10] MEDS: Insulin Lispro 100 UNIT/ML 3 ML VIAL SUBCUT ×3 (09:08→23:37)
[2021-05-10] MEDS: Multivitamin TABLET 1 TAB PO (09:08)
[2021-05-10] MEDS: Gabapentin 400 MG CAPSULE PO ×3 (09:08→23:13)
[2021-05-10] MEDS: Folic Acid 1 MG TABLET PO (09:08)
[2021-05-10] MEDS: Thiamine HCL 100 MG TABLET PO (09:08)
[2021-05-10] MEDS: 0.9 % Sodium Chloride Flush 3 ML SYRINGE IVFLUSH ×2 (09:09→18:42)
--- NOTE | 2021-05-10 09:15 | MHC.RECOVSUP ---
Recovery Support note: Patient is a 61 year old Wallisian speaking male who presented to [facility] ED due to N/V/D after going two days without consuming alcohol. Patient is known to this scientific technical writer from previous consultations. This scientific technical writer met with patient to discuss his alcohol use and treatment options. Patient reports he was previously drinking ten nips a day and brought it down to five. Patient reports he was drinking four or five nips daily and tried to stop cold turkey. Patient reports a desire to maintain sobriety however identifies his grief as a barrier. Patient reports he is also off his bipolar medication and hopes to restart that soon. Patient reports he was previously connected with [facility] and found it helpful. Patient is interested in being referred to [facility] to restart services with them. Patient also reports he plans to utilize [facility]. Discussed the importance of having his phone charged and the volume loud so that he does not miss calls from [facility] or [facility]. Patient acknowledged. Encouraged patient to reach out to friends or family in the mean time for support. This scientific technical writer will refer patient to [facility] and they will contact patient after discharge. Discussed case with patient's RN.
[2021-05-10 09:53] LABS: Magnesium 1.9 mg/dL (1.6-2.6)
[2021-05-10 17:37] LABS: Glucose, Whole Blood 210 mg/dL (60-115)
[2021-05-10] MEDS: Nicotine 21 MG PATCH.TD24 TRANSDERMA (23:32)
[2021-05-10] MEDS: ondansetron HCL 4 MG/2 ML VIAL IVPUSH (23:33)
[2021-05-10] MEDS: Insulin Glargine,Hum.rec.anlog 100 UNIT/ML 10 ML VIAL 10 UNIT SUBCUT (23:36)
[2021-05-10 23:45] VITALS: BP 111/72; PULSE 67; RESP 16; O2SAT 100
[2021-05-10 23:47] LABS: Glucose, Whole Blood 280 mg/dL (60-115)
[2021-05-11] MEDS: 0.9 % Sodium Chloride 1,000 ML 100 ML IVCONT (05:13)
[2021-05-11 06:28] VITALS: BP 118/92; PULSE 103; RESP 16; O2SAT 96
[2021-05-11 07:54] LABS: Glucose, Whole Blood 305 mg/dL (60-115)
[2021-05-11] MEDS: LORazepam 1 MG TABLET 0.5 MG PO ×3 (08:10→23:13)
[2021-05-11] MEDS: Thiamine HCL 100 MG TABLET PO (08:10)
[2021-05-11] MEDS: Gabapentin 400 MG CAPSULE PO ×3 (08:10→20:57)
[2021-05-11] MEDS: Multivitamin TABLET 1 TAB PO (08:10)
[2021-05-11] MEDS: Folic Acid 1 MG TABLET PO (08:10)
[2021-05-11] MEDS: Insulin Lispro 100 UNIT/ML 3 ML VIAL SUBCUT ×5 (08:11→23:13)
[2021-05-11] MEDS: Famotidine/PF 20 MG/2 ML VIAL IVPUSH ×2 (08:11→20:57)
--- NOTE | 2021-05-11 11:25 | HO.PM.IMPN ---
Subjective Subjective Date of Service: 05/11/21 Interval History: ? f/u on gastritis, dka resolved. No abd pain tody Review of Systems no n/v no fever Physical Exam Vital Signs: Vital Signs: Last Vital Signs Temp 98.8 F 05/09/21 15:31 Pulse 103 H 05/11/21 06:28 Resp 16 05/11/21 06:28 BP 118/92 H 05/11/21 06:28 Pulse Ox 96 05/11/21 06:28 Body Mass Index 26.6 General: AO X 3, no acute distress Resp: CTA bilateral CVS: S1,S2,RRR GI: +BS, NT, no distention Skin: No rash Neuro: motor grossly intact Psych: appropriate affect Objective Data Active Medications Acetaminophen (Acetaminophen 325 Mg Tablet) 650 mg PO Q6H PRN PRN Reason: Pain, Mild (Pain Scale 1-3) Last Admin: 05/10/21 00:57 Dose: 650 mg Documented by: JAMAAL Dextrose (Dextrose 50 % 25 Gm/50 Ml Vial) 25 gm IVPUSH Q15M PRN; Protocol PRN Reason: per Hypoglycemia Standing Ord. Famotidine (Famotidine/Pf 20 Mg/2 Ml Vial) 20 mg IVPUSH BID [facility] Last Admin: 05/11/21 08:11 Dose: 20 mg Documented by: NIA Folic Acid (Folic Acid 1 Mg Tablet) 1 mg PO DAILY [facility] Stop: 05/13/21 08:59 Last Admin: 05/11/21 08:10 Dose: 1 mg Documented by: NIA Gabapentin (Gabapentin 400 Mg Capsule) 400 mg PO TID [facility] Last Admin: 05/11/21 08:10 Dose: 400 mg Documented by: NIA Glucose (Glucose Gel 15 Gm Gel..Gram.) 15 gm PO Q15M PRN; Protocol PRN Reason: per Hypoglycemia Standing Ord. Insulin Glargine (Insulin Glargine,Hum.Rec.Anlog 100 Unit/Ml 10 Ml Vial) 10 unit SUBCUT BEDTIME [facility] Last Admin: 05/10/21 23:36 Dose: 10 unit Documented by: ASHLEY Insulin Human Lispro (Insulin Lispro 100 Unit/Ml 3 Ml Vial) 0 unit SUBCUT QIDACHS [facility]; Protocol Last Admin: 05/11/21 08:11 Dose: 8 unit Documented by: NIA Lorazepam (Lorazepam 1 Mg Tablet) 1 mg PO Q6H JOSE; Taper Stop: 05/14/21 00:44 Last Admin: 05/11/21 08:10 Dose: 1 mg Documented by: NIA Lorazepam (Lorazepam 1 Mg Tablet) 1 mg PO Q4H PRN PRN Reason: Breakthrough alcohol withdrawa Stop: 05/13/21 22:40 Last Admin: 05/10/21 03:43 Dose: 1 mg Documented by: JAMAAL Melatonin (Melatonin 3 Mg Tablet) 6 mg PO BEDTIME PRN PRN Reason: Insomnia Multivitamins/Vitamin C (Multivitamin Tablet) 1 tab PO DAILY JOSE Stop: 05/13/21 08:59 Last Admin: 05/11/21 08:10 Dose: 1 tab Documented by: NIA Ondansetron HCl (Ondansetron Hcl 4 Mg/2 Ml Vial) 4 mg IVPUSH Q8H PRN PRN Reason: Nausea and Vomiting Last Admin: 05/10/21 23:33 Dose: 4 mg Documented by: ASHLEY Pharmacy Consult (Consult Rx Perform Med Rec) 1 each MISCELLANE ONCE PRN PRN Reason: Consult order Senna (Sennosides 8.6 Mg Tablet) 17.2 mg PO BEDTIME PRN PRN Reason: Constipation Sodium Chloride (0.9 % Sodium Chloride Flush 3 Ml Syringe) 3 ml IVFLUSH QSHIFT [facility] Last Admin: 05/11/21 08:32 Dose: Not Given Documented by: NIA Non-Admin Reason: IV Running Thiamine HCl (Thiamine Hcl 100 Mg Tablet) 100 mg PO DAILY [facility] Stop: 05/13/21 08:59 Last Admin: 05/11/21 08:10 Dose: 100 mg Documented by: NIA Labs CBC & Chem 7: 05/10/21 06:46 05/10/21 06:46 Labs: Laboratory Results - last 24 hr 05/10/21 05/10/21 05/11/21 17:31 23:36 07:51 POC Glucose 210 H 280 H 305 H Assessment and Plan (1) Diabetes mellitus: Status: Acute (2) Alcoholic gastritis: Status: Acute (3) DKA (diabetic ketoacidosis): Status: Acute Assessment and Plan: 61-year-old male with a past medical history of hypertension, hyperlipidemia, diabetes, alcohol abuse, alcoholic gastritis, history of pancreatitis, history of pseudocyst, anxiety, depression presented to the hospital with a chief complaint of nausea vomiting; noted to have elevated blood glucose level, high anion gap and high Acetone level consistent with mild DKA. Mild DKA--resolved with IVF, he is non compliant and drink alcohol as part of the problem Nausea/vomiting. Abdominal discomfort? Likely alcoholic gastritis.? IV Pepcid. Tolerating regular diet Abdominal discomfort, n/v:? Likely from gastritis.? Bening exam.?normal lipase.? CT scan showed no acute process but noted pseudocyst at the pancreatic tail.? Also noted mild gallbladder wall thickening-patient afebrile and has no leukocytosis? US show thickening likely chronic. Will surgery see him, get LFTS Diabetes: unonctrolled, non compliant. Lantus Plus Insulin sliding scale; Hypomagnesemia/hypokalemia:?supplement give ?Alcohol dependence? : CIWA, thiamine, folate, cessation discussed, counceling Advance diet and if tolerate should go home DVT prophylaxis:? SCD boots Code status:? Full code Quality Stroke Does the patient have a stroke diagnosis?: No VTE Prior VTE?: No VTE Risk Level:: Medical - moderate - high VTE Device Contraindication: N/A - Device Ordered VTE Drug Contraindication: Treatment Not Indicated
[2021-05-11 11:51] LABS: Glucose, Whole Blood 176 mg/dL (60-115)
--- NOTE | 2021-05-11 12:34 | PM.CNGS ---
History of Present Illness Consult details Consult date: 05/11/21 Narrative: 61M referred for abnormal CT scan of the pancreas and gallbladder. He was admitted for chest pain last 2020. He has multiple medical problems including ETOH abuse, recurrent alcoholic pancreatitis and diabetes. He has knwon pancreatic cysts from alcohol abuse. He had complained of nausea and vomitting during this admision. He had a CT scan on admission which showed a pancreatic pseudocyst at the tail, some ductal dilatation and midly thickened GB wall. He had an US showing pancreatic ductal dilatation with likely stone in the duct. He seems to have GB sludge but no obvious gallbladder stones. He currently denies abdominal pain, although he does state he has frequent abdominal pain for many years now. He admits to still actively drinking alcohol at home everyday. [facility] Past Medical History Medical History Acidosis, lactic Acute dehydration Acute hyperglycemia Alcohol abuse Alcohol dependence with withdrawal Alcohol use disorder, severe, dependence Attention deficit disorder Degenerative disc disease, cervical Depression Diabetes mellitus Dyslipidemia Head injury History of substance abuse Hypomagnesemia Hypotestosteronism Osteoarthritis of right hand Pancreatitis Prolonged QT interval Thrombocytopenia Vomiting Family History Family History Father Cancer Mother Cancer Diabetes Surgical History Surgical History History of surgery Social History Social History Household Members: None Housing: Apartment Do you presently have visiting nurse or other home services: No Unable to assess alcohol history related to: Refusing to respond Alcohol intake: current Alcohol intake frequency: 3 or more drinks per day Alcohol type: hard liquor Patient Tobacco Use Status: Current everyday Tobacco user Tobacco use type: Cigarette Cigarette Packs Per Day: 2 Cigarettes Per Day: 40.0 Substance Use Type: Marijuana service: No Current occupational status: unemployed and disabled Current occupation: Right Handed Meds Allergies Allergy/AdvReac Type Severity Reaction Status Date / Time No Known Drug Allergies Allergy Unknown Verified 03/24/21 00:43 Active Medications: Current Medications Acetaminophen (Acetaminophen 325 Mg Tablet) 650 mg PO Q6H PRN PRN Reason: Pain, Mild (Pain Scale 1-3) Last Admin: 05/10/21 00:57 Dose: 650 mg Documented by: Dextrose (Dextrose 50 % 25 Gm/50 Ml Vial) 25 gm IVPUSH Q15M PRN; Protocol PRN Reason: per Hypoglycemia Standing Ord. Famotidine (Famotidine/Pf 20 Mg/2 Ml Vial) 20 mg IVPUSH BID [facility] Last Admin: 05/11/21 08:11 Dose: 20 mg Documented by: Folic Acid (Folic Acid 1 Mg Tablet) 1 mg PO DAILY [facility] Stop: 05/13/21 08:59 Last Admin: 05/11/21 08:10 Dose: 1 mg Documented by: Gabapentin (Gabapentin 400 Mg Capsule) 400 mg PO TID [facility] Last Admin: 05/11/21 08:10 Dose: 400 mg Documented by: Glucose (Glucose Gel 15 Gm Gel..Gram.) 15 gm PO Q15M PRN; Protocol PRN Reason: per Hypoglycemia Standing Ord. Insulin Glargine (Insulin Glargine,Hum.Rec.Anlog 100 Unit/Ml 10 Ml Vial) 10 unit SUBCUT BEDTIME [facility] Last Admin: 05/10/21 23:36 Dose: 10 unit Documented by: Insulin Human Lispro (Insulin Lispro 100 Unit/Ml 3 Ml Vial) 0 unit SUBCUT QIDACHS [facility]; Protocol Last Admin: 05/11/21 08:11 Dose: 8 unit Documented by: Lorazepam (Lorazepam 1 Mg Tablet) 1 mg PO Q6H [facility]; Taper Stop: 05/14/21 00:44 Last Admin: 05/11/21 08:10 Dose: 1 mg Documented by: Lorazepam (Lorazepam 1 Mg Tablet) 1 mg PO Q4H PRN PRN Reason: Breakthrough alcohol withdrawa Stop: 05/13/21 22:40 Last Admin: 05/10/21 03:43 Dose: 1 mg Documented by: Melatonin (Melatonin 3 Mg Tablet) 6 mg PO BEDTIME PRN PRN Reason: Insomnia Multivitamins/Vitamin C (Multivitamin Tablet) 1 tab PO DAILY [facility] Stop: 05/13/21 08:59 Last Admin: 05/11/21 08:10 Dose: 1 tab Documented by: Ondansetron HCl (Ondansetron Hcl 4 Mg/2 Ml Vial) 4 mg IVPUSH Q8H PRN PRN Reason: Nausea and Vomiting Last Admin: 05/10/21 23:33 Dose: 4 mg Documented by: Pharmacy Consult (Consult Rx Perform Med Rec) 1 each MISCELLANE ONCE PRN PRN Reason: Consult order Senna (Sennosides 8.6 Mg Tablet) 17.2 mg PO BEDTIME PRN PRN Reason: Constipation Sodium Chloride (0.9 % Sodium Chloride Flush 3 Ml Syringe) 3 ml IVFLUSH QSHIFT [facility] Last Admin: 05/11/21 08:32 Dose: Not Given Documented by: Thiamine HCl (Thiamine Hcl 100 Mg Tablet) 100 mg PO DAILY [facility] Stop: 05/13/21 08:59 Last Admin: 05/11/21 08:10 Dose: 100 mg Documented by: Home Medications Medication Instructions Recorded Confirmed Last Taken Type gabapentin 400 mg capsule 400 mg PO TID 02/27/21 05/09/21 05/09/21 History insulin glargine 100 unit/mL (3 12 unit SUBCUT BEDTIME 02/27/21 05/09/21 04/02/21 History mL) subcutaneous pen (Lantus Solostar U-100 Insulin) insulin lispro 100 unit/mL 10 unit SUBCUT TIDAC 04/01/21 05/09/21 04/02/21 History subcutaneous pen (Humalog KwikPen (U-100) Insulin) Physical Exam Vital Signs: Vital Signs: Last Vital Signs Temp 98.8 F 05/09/21 15:31 Pulse 103 H 05/11/21 06:28 Resp 16 05/11/21 06:28 BP 118/92 H 05/11/21 06:28 Pulse Ox 96 05/11/21 06:28 Body Mass Index 26.6 Const: General: no acute distress Resp: Effort & Inspection: normal respiratory effort Cardio: Rate: regular rate GI: Other: no Mark's sign Palpation (GI): Soft to palpation, not firm, nontender and no guarding Results Labs Result diagrams: 05/10/21 06:46 05/11/21 17:21 Labs: Abnormal lab results 05/10/21 05/10/21 05/11/21 Range/Units 17:31 23:36 07:51 POC Glucose 210 H 280 H 305 H (60-115) mg/dL 05/11/21 Range/Units 11:46 POC Glucose 176 H (60-115) mg/dL Urine 05/09/21 Range/Units 19:13 Urine Color YELLOW Urine Appearance CLEAR Urine pH 6.0 (5.0-8.0) Ur Specific [place] 1.020 (1.005-1.025) Urine Protein TRACE (NEG-TRACE) MG/DL Urine Glucose (UA) >=1000 H (NEG) MG/DL All other labs normal. Imaging Abdomen CT scan report/results: report reviewed and image reviewed CT scan - pelvis: report reviewed and image reviewed Assessment and Plan (1) Pancreatic cyst: Status: Acute 61M with multiple medical problems as described above including ETOH abuse with note of dilated pancreatic duct, pseudocyst and possible pancreatic ductal stone on US. He currently denies acute pain. He says he is awaiting discharge. His physical exam is very benign and he is currently nontender. Most of the changes in his pancreas are secondary to his alcoholic intake with chronic pancreatitis, but there is mention of a possible ductal stone in the pancreas. He may be worked up for this by GI as an outpatient with MRCP. Clinically he does not have acute cholecysititis. If his LFTs are unremarkable, he may be discharged today. I have counseled him on the benefits of alcohol cessation. Procedures Date of Service Date of Service: 05/11/21
[2021-05-11 12:40] LABS: Alanine Aminotransferase 7 U/L (0-40); Albumin Level 3.5 g/dL (3.5-5.0); Alkaline Phosphatase 73 U/L (39-117); Anion Gap 14 (12-20); Aspartate Amino Transferase 14 U/L (5-37); Bilirubin Direct 0.3 mg/dL (0.0-0.5); Bilirubin Total 0.5 mg/dL (0.0-1.0); Blood Urea Nitrogen 10 mg/dL (9-16); Calcium 8.7 mg/dL (8.4-10.2); Carbon Dioxide 27 mmol/L (22-29); Chloride 97 mmol/L (96-108); Creatinine Clr Calc Pharmacy 84.3; Estimated Glomerular Filt Rate > 60; Glucose Random 171 mg/dL (60-115); Magnesium 1.5 mg/dL (1.6-2.6); Potassium 2.8 mmol/L (3.3-5.1); Sodium 135 mmol/L (135-145); Total Protein 5.7 g/dL (6.5-8.0)
[2021-05-11] MEDS: Potassium Chloride ER 20 MEQ TAB.ER.PRT 40 MEQ PO (14:50)
[2021-05-11 16:16] VITALS: BP 115/75; PULSE 82; RESP 16; TEMP 37; O2SAT 95
[2021-05-11 17:34] LABS: Glucose, Whole Blood 257 mg/dL (60-115)
[2021-05-11 17:57] LABS: Anion Gap 13 (12-20); Blood Urea Nitrogen 10 mg/dL (9-16); Calcium 8.6 mg/dL (8.4-10.2); Carbon Dioxide 29 mmol/L (22-29); Chloride 96 mmol/L (96-108); Estimated Glomerular Filt Rate > 60; Glucose Random 288 mg/dL (60-115); Potassium 3.5 mmol/L (3.3-5.1); Sodium 134 mmol/L (135-145)
[2021-05-11] MEDS: 0.9 % Sodium Chloride Flush 3 ML SYRINGE IVFLUSH ×2 (18:25→23:14)
--- NOTE | 2021-05-11 20:09 | PC.NURSE ---
This RN contacting Hospitalist regarding plan for DC home as day nurse Neri had previously spoke with [facility] regarding DC. This RN awaiting DC summary. This RN contacting Hospitalist Swati regarding possible DC. Per Swati, discharge summary is not in and it is not safe for him to DC pt home. To continue plan for admission.
--- NOTE | 2021-05-11 20:22 | PC.NURSE ---
Pt made aware of plan to continue with admission. Pt ambulating to the bathroom with cane. Pt provided with a complete bed change. This RN calling [facility], C unable to take report at this time.
[2021-05-11 20:37] LABS: Glucose, Whole Blood 268 mg/dL (60-115)
--- NOTE | 2021-05-11 20:44 | PC.NURSE ---
Report given to [facility] RN. Plan for medications and transport to floor.
[2021-05-11] MEDS: Insulin Glargine,Hum.rec.anlog 100 UNIT/ML 10 ML VIAL 10 UNIT SUBCUT (20:56)
--- NOTE | 2021-05-11 21:00 | PC.NURSE ---
This RN at bedside for 2100 medications. IV to left wrist noted to have infiltrated, IV removed. IV reestablished to left FA, 20 ga. Pt medicated per OCT. nuclear plant instrument technician at bedside for transport to floor.
[2021-05-11 21:12] VITALS: BP 107/70; PULSE 82; RESP 19; TEMP 36.4; O2SAT 93
[2021-05-11 21:29] LABS: Glucose, Whole Blood 332 mg/dL (60-115)
[2021-05-11 23:41] VITALS: BP 109/70; PULSE 75; RESP 16; TEMP 35.8; O2SAT 100
[2021-05-12 04:00] VITALS: BP 109/75; PULSE 70; RESP 18; TEMP 36.7; O2SAT 99
[2021-05-12 07:29] VITALS: BP 130/83; PULSE 64; RESP 18; TEMP 36.6; O2SAT 98
[2021-05-12 07:33] LABS: Glucose, Whole Blood 228 mg/dL (60-115)
--- NOTE | 2021-05-12 08:07 | P.DS_ITS ---
DS: Providers Provider Date of Service: 05/10/21 Date of admission: 05/09/21 22:38 Primary care physician: Jose White MD DS: Diagnosis Discharge Diagnosis (1) DKA (diabetic ketoacidosis): Status: Resolved DS: Summary Hospital Course Hospital Course: 61 year old male with diabetes non compliant with meds, alcohol dependence, known alcoholic gastritis who presents with nausea and vomitting and noted to have blood sugar > 500, normal bicab but high anion gap, and has moderate acetone consistent with DKA, CT show no acute finding other than some gallbladder thickening but with no tenderness, leukocytosis or fever. He was admitted hydrated with rapid resolution of DKA and the nausea/vomitting that is likely due gastiritis and DKA.. He is now tolerating diet. Of note he he had hypomagnesemia..that was corrected with supplement. Time Spent with Patient Time attestation: Total time spent providing and/or coordinating discharge services: Discharge coordination time: Greater than 30 minutes Quality: Stroke Does the patient have a stroke diagnosis?: No Physical Exam Vital Signs: Vital Signs: Last Vital Signs Temp 98.8 F 05/09/21 15:31 Pulse 80 05/10/21 02:43 Resp 14 05/10/21 02:43 BP 130/76 05/10/21 02:43 Pulse Ox 94 05/10/21 02:43 Body Mass Index 26.6 General: AO X 3, no acute distress Resp: CTA bilateral CVS: S1,S2,RRR GI: +BS, NT, no distention Skin: No rash Neuro: motor grossly intact Psych: appropriate affect DS: Data Data Completed and Pending Completed studies during hospitalization [Text1]: Procedures Detoxification Services for Substance Abuse Treatment (03/15/21) Transfusion of Nonautologous Platelets into Peripheral Vein, Percutaneous Approach (09/12/20) Labs on day of discharge: Laboratory Results - last 24 hr 05/09/21 05/09/21 05/09/21 15:54 16:43 16:43 WBC 7.6 RBC 3.96 L Hgb 12.0 L Hct 33.2 L MCV 83.8 MCH 30.3 MCHC 36.1 H RDW 12.9 Plt Count 66 L MPV 8.7 L Immature Gran % (Auto) 0.4 Neut % (Auto) 70.5 Lymph % (Auto) 17.5 L [place] % (Auto) 10.8 Eos % (Auto) 0.4 Baso % (Auto) 0.4 Lymph # (Auto) 1.3 [place] # (Auto) 0.8 Eos # (Auto) 0.0 Baso # (Auto) 0.0 Abs Immat Gran (auto) 0.03 Absolute Neuts (auto) 5.4 Absolute Nucleated RBC 0.000 Nucleated RBC % (auto) 0.0 VBG pH VBG pCO2 VBG pO2 VBG HCO3 VBG O2 Saturation VBG Base Excess Sodium 129 L Potassium 3.6 Chloride 82 L Carbon Dioxide 24 Anion Gap 27 H BUN 10 Creatinine 1.17 Estim Creat Clear Calc 61.3 Estimated GFR > 60 POC Glucose 520 H* Random Glucose 517 H* Calcium 8.4 D Magnesium 1.5 L Total Bilirubin 1.4 H AST 14 ALT 10 Alkaline Phosphatase 101 Troponin I High Sens Total Protein 7.0 Albumin 4.2 Lipase 18 Urine Color Urine Appearance Urine pH Ur Specific Platter Urine Protein Urine Glucose (UA) Urine Ketones Urine Blood Urine Nitrite Ur Leukocyte Esterase Urine RBC Urine WBC Ur Squamous Epith Cells Urine Bacteria Ethyl Alcohol Acetone, Qual COVID-19 (KAYLA) COVID-i[employer] 05/09/21 05/09/21 05/09/21 16:43 16:43 16:43 WBC RBC Hgb Hct MCV MCH MCHC RDW Plt Count MPV Immature Gran % (Auto) Neut % (Auto) Lymph % (Auto) [place] % (Auto) Eos % (Auto) Baso % (Auto) Lymph # (Auto) [place] # (Auto) Eos # (Auto) Baso # (Auto) Abs Immat Gran (auto) Absolute Neuts (auto) Absolute Nucleated RBC Nucleated RBC % (auto) VBG pH VBG pCO2 VBG pO2 VBG HCO3 VBG O2 Saturation VBG Base Excess Sodium Potassium Chloride Carbon Dioxide Anion Gap BUN Creatinine Estim Creat Clear Calc Estimated GFR POC Glucose Random Glucose Calcium Magnesium Total Bilirubin AST ALT Alkaline Phosphatase Troponin I High Sens < 3.5 Total Protein Albumin Lipase Urine Color Urine Appearance Urine pH Ur Specific Platter Urine Protein Urine Glucose (UA) Urine Ketones Urine Blood Urine Nitrite Ur Leukocyte Esterase Urine RBC Urine WBC Ur Squamous Epith Cells Urine Bacteria Ethyl Alcohol < 10 Acetone, Qual COVID-19 (KAYLA) Negative COVID-iAmplify See Note 05/09/21 05/09/21 05/09/21 16:43 16:50 17:40 WBC RBC Hgb Hct MCV MCH MCHC RDW Plt Count MPV Immature Gran % (Auto) Neut % (Auto) Lymph % (Auto) [place] % (Auto) Eos % (Auto) Baso % (Auto) Lymph # (Auto) [place] # (Auto) Eos # (Auto) Baso # (Auto) Abs Immat Gran (auto) Absolute Neuts (auto) Absolute Nucleated RBC Nucleated RBC % (auto) VBG pH 7.47 H VBG pCO2 34 VBG pO2 46 VBG HCO3 25 VBG O2 Saturation 78.0 VBG Base Excess 2.3 Sodium Potassium Chloride Carbon Dioxide Anion Gap BUN Creatinine Estim Creat Clear Calc Estimated GFR POC Glucose 445 H* Random Glucose Calcium Magnesium Total Bilirubin AST ALT Alkaline Phosphatase Troponin I High Sens Total Protein Albumin Lipase Urine Color Urine Appearance Urine pH Ur Specific Platter Urine Protein Urine Glucose (UA) Urine Ketones Urine Blood Urine Nitrite Ur Leukocyte Esterase Urine RBC Urine WBC Ur Squamous Epith Cells Urine Bacteria Ethyl Alcohol Acetone, Qual Moderate H COVID-19 (KAYLA) [employer] 05/09/21 05/09/21 05/09/21 18:51 19:13 19:54 WBC RBC Hgb Hct MCV MCH MCHC RDW Plt Count MPV Immature Gran % (Auto) Neut % (Auto) Lymph % (Auto) [place] % (Auto) Eos % (Auto) Baso % (Auto) Lymph # (Auto) [place] # (Auto) Eos # (Auto) Baso # (Auto) Abs Immat Gran (auto) Absolute Neuts (auto) Absolute Nucleated RBC Nucleated RBC % (auto) VBG pH VBG pCO2 VBG pO2 VBG HCO3 VBG O2 Saturation VBG Base Excess Sodium Potassium Chloride Carbon Dioxide Anion Gap BUN Creatinine Estim Creat Clear Calc Estimated GFR POC Glucose 349 H Random Glucose Calcium Magnesium Total Bilirubin AST ALT Alkaline Phosphatase Troponin I High Sens 4.3 Total Protein Albumin Lipase Urine Color YELLOW Urine Appearance CLEAR Urine pH 6.0 Ur Specific Platter 1.020 Urine Protein TRACE Urine Glucose (UA) >=1000 H Urine Ketones >=80 Urine Blood TRACE Urine Nitrite NEG Ur Leukocyte Esterase NEG Urine RBC 1-4 Urine WBC 0 Ur Squamous Epith Cells TRACE Urine Bacteria NONE Ethyl Alcohol Acetone, Qual COVID-19 (KAYLA) COVID-19 [employer] 05/09/21 05/10/21 05/10/21 19:54 01:58 06:46 WBC 2.8 L RBC 3.17 L Hgb 9.8 L Hct 27.1 L MCV 85.5 MCH 30.9 MCHC 36.2 H RDW 12.8 Plt Count 34 L D MPV 9.3 L Immature Gran % (Auto) 0.4 Neut % (Auto) 35.9 L Lymph % (Auto) 52.5 H [place] % (Auto) 10.4 Eos % (Auto) 0.4 Baso % (Auto) 0.4 Lymph # (Auto) 1.5 [place] # (Auto) 0.3 Eos # (Auto) 0.0 Baso # (Auto) 0.0 Abs Immat Gran (auto) 0.01 Absolute Neuts (auto) 1.0 L Absolute Nucleated RBC 0.000 Nucleated RBC % (auto) 0.0 VBG pH VBG pCO2 VBG pO2 VBG HCO3 VBG O2 Saturation VBG Base Excess Sodium 130 L Potassium 3.1 L Chloride 89 L Carbon Dioxide 27 Anion Gap 17 BUN 9 Creatinine 0.97 Estim Creat Clear Calc 73.9 Estimated GFR > 60 POC Glucose 289 H Random Glucose 265 H D Calcium 7.6 L D Magnesium Total Bilirubin AST ALT Alkaline Phosphatase Troponin I High Sens Total Protein Albumin Lipase Urine Color Urine Appearance Urine pH Ur Specific Platter Urine Protein Urine Glucose (UA) Urine Ketones Urine Blood Urine Nitrite Ur Leukocyte Esterase Urine RBC Urine WBC Ur Squamous Epith Cells Urine Bacteria Ethyl Alcohol Acetone, Qual COVID-19 (KAYLA) COVID-19 Clin Com 05/10/21 06:46 WBC RBC Hgb Hct MCV MCH MCHC RDW Plt Count MPV Immature Gran % (Auto) Neut % (Auto) Lymph % (Auto) [place] % (Auto) Eos % (Auto) Baso % (Auto) Lymph # (Auto) [place] # (Auto) Eos # (Auto) Baso # (Auto) Abs Immat Gran (auto) Absolute Neuts (auto) Absolute Nucleated RBC Nucleated RBC % (auto) VBG pH VBG pCO2 VBG pO2 VBG HCO3 VBG O2 Saturation VBG Base Excess Sodium 132 L Potassium 3.7 Chloride 95 L Carbon Dioxide 26 Anion Gap 15 BUN 7 L Creatinine 0.87 Estim Creat Clear Calc 81.4 Estimated GFR > 60 POC Glucose Random Glucose 281 H Calcium 7.8 L Magnesium Total Bilirubin AST ALT Alkaline Phosphatase Troponin I High Sens Total Protein Albumin Lipase Urine Color Urine Appearance Urine pH Ur Specific Platter Urine Protein Urine Glucose (UA) Urine Ketones Urine Blood Urine Nitrite Ur Leukocyte Esterase Urine RBC Urine WBC Ur Squamous Epith Cells Urine Bacteria Ethyl Alcohol Acetone, Qual COVID-19 (KAYLA) COVID-19 Clin Com Discharge Plan Discharge Anticipated Discharge Date/Time: 05/12/21 10:01 Patient Disposition: Home, Self-Care Discharge Diagnosis: Mild DKA, alcoholic gastritis Referrals: Jose White MD [Primary Care Provider] - 1 Week (Your doctor's office should call you to schedule a follow up appointment.) Discharge Medications: New nicotine 14 mg/24 hr patch 24 hour 1 patch transdermal Q24H Qty: 28 RF: 0 Continued Lantus Solostar U-100 Insulin 100 unit/mL (3 mL) insulin pen 12 unit subcut BEDTIME RF: 0 gabapentin 400 mg capsule 400 mg PO TID RF: 0 insulin lispro [Humalog KwikPen Insulin] 100 unit/mL Insulin Pen 10 unit SUBCUT TIDAC RF: 0 Discharge Orders: Discharge Order (Routine); Ordered 05/12/21 Ordered By: Lorenzo Yi Diet: advance to usual diet and diabetic diet Activity on Discharge: As tolerated Stand Alone Forms: Patient Portal Discharge page Care Plan Goals: prevent rehospitslization Health Concerns: diabetes,non compliance, and chronic alcohol dependency Plan of Treatment: Take your insulin as directed, stay away from alcohol, take prilosec as directed Assessment: as above Discharge Date/Time: 05/12/21 12:23
[2021-05-12] MEDS: Multivitamin TABLET 1 TAB PO (09:42)
[2021-05-12] MEDS: Thiamine HCL 100 MG TABLET PO (09:42)
[2021-05-12] MEDS: Famotidine/PF 20 MG/2 ML VIAL IVPUSH (09:42)
[2021-05-12] MEDS: 0.9 % Sodium Chloride Flush 3 ML SYRINGE IVFLUSH (09:42)
[2021-05-12] MEDS: Gabapentin 400 MG CAPSULE PO (09:42)
[2021-05-12] MEDS: Insulin Lispro 100 UNIT/ML 3 ML VIAL SUBCUT (09:42)
[2021-05-12] MEDS: Folic Acid 1 MG TABLET PO (09:42)
[2021-05-12 11:14] VITALS: BP 135/73; PULSE 86; RESP 18; TEMP 36.4; O2SAT 97
[2021-05-12 11:23] LABS: Glucose, Whole Blood 300 mg/dL (60-115)
--- NOTE | 2021-05-12 12:34 | MHC.CM.PN ---
CM MET WITH PT WHO REPORTS HE LIVES ALONE AND IS FULLY INDEPENDENT PT REPORTS HE HAS A CANE AND A CPAP PT HAS NO IN HOME SERVICES AND NO COMMUNITY SERVICES ' PT REPORTS HE USED TO GO TO [facility] FOR MENTAL HEALTH SERVICES BUT THEY DISCHARGED HIM PT DECLINES A CARE TEAM CONSULT FOR MH REFERRALS AND REPORTS HE WILL SET IT UP HIMSELF PT CONFIRMS HIS PCP IS [facility] PT HAS A HCP ON FILE PT IS BEING DISCHARGED HOME TODAY WITH NO SERVICES PT WILL TAKE THE [facility]
[2021-05-14 00:26] LABS: Beta-Hydroxybutyrate 4.32 mmol/L
== END 2021-05-12 12:23 | disposition home or self-care (01) | DRG 241 ==
LOC: HO.ED 21:04 → HO.EDOVER 22:54 → HO.S3 05-11 14:13 → HO.EDOVER 05-11 14:43 → HO.IMC 05-11 20:14
PROVIDERS: Physician Assistant; Admitting Provider Hospitalist; Emergency Provider Emergency Medicine; PCP Internal Medicine; Visit Provider Internal Medicine
DX: K29.20 Alcoholic gastritis without bleeding (principal); E11.10 Type 2 diabetes mellitus with ketoacidosis without coma; K86.2 Cyst of pancreas; E83.42 Hypomagnesemia; F17.210 Nicotine dependence, cigarettes, uncomplicated; F10.20 Alcohol dependence, uncomplicated; E87.6 Hypokalemia; Z20.822 Contact with and (suspected) exposure to COVID-19; Z91.14 Patient's other noncompliance with medication regimen; Z71.6 Tobacco abuse counseling; Z79.4 Long term (current) use of insulin; Z79.899 Other long term (current) drug therapy
CPT/HCPCS: 36415; 71045; 74177; 76705; 80048; 80053; 80076; 81001; 82009; 82010; 82077; 82803; 82947; 83690; 83735; 84484; 85025; 87635; 93005; 96361; 96365; 96366; 96375; 99285; J2405; J3475; Q9967

== ENCOUNTER 2021-05-27 09:44 | Emergency (ER) | payer OTHER, SELFPAY ==
[2021-05-27] VITALS (8 sets, daily range): BP systolic 94–137; BP diastolic 64–95; PULSE 74–104; RESP 15–20; TEMP 36.8–37.3; O2SAT 96–99; BMI 25.8
--- NOTE | ~2021-05-27 | XR_ITS ---
EXAMINATION: XR CHEST CLINICAL INFORMATION: Left chest pain COMPARISON: Chest radiographs 05/09/2021, 09/25/2020 TECHNIQUE: Portable upright AP view of the chest was obtained. FINDINGS: There is no pneumothorax, airspace consolidation, groundglass opacity, or effusion. No pleural reaction. The heart is normal in size. The hilar contours are normal. There is slight rotation to the right. No acute bony abnormality demonstrated. XR/XR chest 1V IMPRESSION: Unremarkable examination.
--- NOTE | 2021-05-27 09:55 | ECG_ITS ---
Test Reason : CHEST PAIN Blood Pressure : / mmHG Vent. Rate : 101 BPM Atrial Rate : 101 BPM P-R Int : 154 ms QRS Dur : 076 ms QT Int : 418 ms P-R-T Axes : 074 -05 049 degrees QTc Int : 542 ms Sinus tachycardia Prolonged QT Abnormal ECG When compared with ECG of 09-MAY-2021 15:44, T wave inversion no longer evident in Lateral leads Referred By: Consuelo Izquierdo Electronically Signed By:LINDA BAR
--- NOTE | 2021-05-27 10:02 | ED.CHESTPAIN ---
HPI - Chest Pain General Chief Complaint: Chest Pain Stated Complaint: CHEST PAIN/N/V Time Seen by Provider: 05/27/21 09:54 Source: patient and EMS Mode of arrival: EMS Limitations: no limitations History of Present Illness HPI narrative: Patient comes to the emergency room complaining of nausea, vomiting, left-sided chest pain. Patient states he has been having diffuse abdominal discomfort for several days, patient is known to be diabetic and noncompliant with his medication. Patient states he has not use insulin in 2 days because he is not want to use it. The chest pain started this morning approximately 3 hours ago. Patient states it is constant, nonradiating, pressure on the left side of the chest. Patient denies any falls. Patient states he is trying to stop drinking, last alcohol drink was approximately 4 days ago. Patient is otherwise a daily alcohol drinker. Related Data Home Medications Medication Instructions Recorded Confirmed gabapentin 400 mg capsule 400 mg PO TID 02/27/21 05/09/21 insulin glargine 100 unit/mL (3 12 unit SUBCUT BEDTIME 02/27/21 05/09/21 mL) subcutaneous pen (Lantus Solostar U-100 Insulin) insulin lispro 100 unit/mL 10 unit SUBCUT TIDAC 04/01/21 05/09/21 subcutaneous pen (Humalog KwikPen (U-100) Insulin) Previous Rx's Medication Instructions Recorded nicotine 14 mg/24 hr daily 1 patch TRANSDERMAL Q24H #28 ea 05/12/21 transdermal patch Allergies Allergy/AdvReac Type Severity Reaction Status Date / Time No Known Drug Allergies Allergy Unknown Verified 03/24/21 00:43 Review of Systems Review of Systems: Constitutional : No Weight loss, No Fever, No Chills, No Night Sweats, No Fatigue, No Malaise ENT/Mouth : No Hearing loss, No Ear Pain, No Nasal Congestion, No Sinus Pain, No Hoarseness, No sore throat, No Rhinorrhea, No Swallowing Difficulty Eyes: No Eye Pain, No Swelling, No Redness, No Foreign Body, No Discharge, No Vision Changes Cardiovascular : Complaining of left-sided Chest Pain, No SOB, No Dyspnea on Exertion, No Orthopnea, No Edema, No Palpitations Respiratory : No Cough, No Sputum, No Wheezing, No Smoke Exposure, No Dyspnea Gastrointestinal : Complaining of nausea and vomiting No Diarrhea, No Constipation, complaining of mild diffuse abdominal discomfort No Hematochezia, No Melena Genitourinary : no irregular bleeding, No Dysuria, No Urinary Frequency, No Hematuria, No Urinary Incontinence, No Urgency, No Flank Pain, No Urinary Flow Changes, No Hesitancy Musculoskeletal : No joint pain, No Myalgias, No Joint Swelling Skin : No Skin Lesions, No rash Neuro : No Weakness, No Numbness, No Paresthesias, No Loss of Consciousness, No Dizziness, No Headache Psych : No Anxiety/Panic, No Depression, No SI/HI/AH/VH, No Social Issues, Heme/Lymph: No Bruising, No Bleeding,No Lymphadenopathy Endocrine : No Polyuria, No Polydipsia, No Temperature Intolerance [facility] Past Medical History Medical History Acidosis, lactic Acute dehydration Acute hyperglycemia Alcohol abuse Alcohol abuse Alcohol dependence with withdrawal Alcohol use disorder, severe, dependence Alcoholic gastritis Attention deficit disorder Degenerative disc disease, cervical Depression Diabetes mellitus Dyslipidemia Head injury History of substance abuse Hypomagnesemia Hypotestosteronism Osteoarthritis of right hand Pancreatic cyst Pancreatitis Prolonged QT interval Thrombocytopenia Vomiting Surgical History History of surgery Family History Family History Father Cancer Mother Cancer Diabetes Social History Social History Household Members: None Housing: Apartment Do you presently have visiting nurse or other home services: No Unable to assess alcohol history related to: Refusing to respond Alcohol intake: current Alcohol intake frequency: 3 or more drinks per day Alcohol type: hard liquor Patient Tobacco Use Status: Current everyday Tobacco user Tobacco use type: Cigarette Cigarette Packs Per Day: 2 Cigarettes Per Day: 40.0 Use of substances other than those prescribed or required for medical reasons: No Substance Use Type: Marijuana Advance Directives: Yes Advance Directives on File: Yes Advance Directives Date on File: 03/05/21 service: No Current occupational status: unemployed and disabled Current occupation: Right Handed Physical Exam Vital Signs: Vital Signs: Last Vital Signs Temp 98.5 F 05/27/21 13:53 Pulse 103 H 05/27/21 13:53 Resp 19 05/27/21 13:53 BP 106/80 05/27/21 13:53 Pulse Ox 97 05/27/21 13:53 Body Mass Index 25.8 Const: Other: Appearance: Alert. Oriented X3. No acute distress. Eyes: Pupils equal, round and reactive to light. ENT: Pharynx normal. Neck: Normal inspection. Neck supple. No lymph nodes noted. No crepitus CVS: Normal heart rate and rhythm. Pulses normal. Normal S1 and S2 Respiratory: No respiratory distress. Breath sounds normal. No Wheezing. No rales Abdomen: Soft , mild discomfort to palpation in all 4 quadrants, No rigidity. No distention. Skin: Skin warm and dry. Normal skin color. Multiple ecchymoses in upper and lower extremities Extremities: No lower extremity edema. No lower extremity edema. No Lacerations. No Rash Neuro: Oriented X 3. No motor deficit. No sensory deficit. Moving all extermities. No slurred speech. Course Course Course Narrative: Patient's potassium magnesium repleted, now normal, patient's glucose 170. Patient has prolonged QT, no other EKG changes. Prior to discharge, patient requested to have a PT/Case Management eval for possible placement. Vitals stable, physician of her vision started at 14:40. Disposition pending MDM - Chest Pain Lab Data Result diagrams: 05/27/21 10:25 05/27/21 13:44 Labs: Lab Results 05/27/21 05/27/21 05/27/21 Range/Units 10:07 10:18 10:24 WBC (4.8-10.8) X10*3/uL RBC (4.60-5.80) X10*6/uL Hgb (14.0-18.0) g/dl Hct (42-52) % MCV (80-98) fL MCH (27.0-33.0) pg MCHC (31.0-36.0) g/dl RDW (11.0-16.0) % Plt Count (160-400) X10*3/uL MPV (9.4-12.4) fL Immature Gran % (Auto) (0.0-0.4) % Neut % (Auto) (45-73) % Lymph % (Auto) (20-40) % [place] % (Auto) (2-11) % Eos % (Auto) (0-4) % Baso % (Auto) (0-2) % Lymph # (Auto) (1.2-4.9) X10*3/uL [place] # (Auto) (0.1-1.2) X10*3/uL Eos # (Auto) (0.0-0.4) X10*3/uL Baso # (Auto) (0.0-0.2) X10*3/uL Abs Immat Gran (auto) (0.00-0.03) X10*3/uL Absolute Neuts (auto) (2.0-8.3) X10*3/uL Absolute Nucleated RBC (0.0-0.012) X10*3/uL Nucleated RBC % (auto) (0.0-0.2) /100WBC Smear Tech's Comments PT (9.9-13.0) SEC INR (0.9-1.1) Sodium (135-145) mmol/L Potassium (3.3-5.1) mmol/L Chloride (96-108) mmol/L Carbon Dioxide (22-29) mmol/L Anion Gap (12-20) BUN (9-16) mg/dL Creatinine (0.5-1.4) mg/dL Estim Creat Clear Calc Estimated GFR POC Glucose 355 H* (60-115) mg/dL Random Glucose (60-115) mg/dL Calcium (8.4-10.2) mg/dL Magnesium (1.6-2.6) mg/dL Total Bilirubin (0.0-1.0) mg/dL Direct Bilirubin (0.0-0.5) mg/dL AST (5-37) U/L ALT (0-40) U/L Alkaline Phosphatase (39-117) U/L Troponin I High Sens (<3.5-35.0) ng/L Total Protein (6.5-8.0) g/dL Albumin (3.5-5.0) g/dL Lipase (8-78) U/L Ethyl Alcohol < 10 mg/dL Acetone, Qual (Negative) COVID-19 (KAYLA) Negative (Negative) COVID-19 Clin Com See Note 05/27/21 05/27/21 05/27/21 Range/Units 10:25 10:25 10:25 WBC 4.8 (4.8-10.8) X10*3/uL RBC 4.16 L D (4.60-5.80) X10*6/uL Hgb 12.8 L D (14.0-18.0) g/dl Hct 35.0 L D (42-52) % MCV 84.1 (80-98) fL MCH 30.8 (27.0-33.0) pg MCHC 36.6 H (31.0-36.0) g/dl RDW 14.2 (11.0-16.0) % Plt Count 64 L D (160-400) X10*3/uL MPV 9.1 L (9.4-12.4) fL Immature Gran % (Auto) 0.4 (0.0-0.4) % Neut % (Auto) 76.3 H (45-73) % Lymph % (Auto) 13.9 L (20-40) % [place] % (Auto) 8.6 (2-11) % Eos % (Auto) 0.2 (0-4) % Baso % (Auto) 0.6 (0-2) % Lymph # (Auto) 0.7 L (1.2-4.9) X10*3/uL [place] # (Auto) 0.4 (0.1-1.2) X10*3/uL Eos # (Auto) 0.0 (0.0-0.4) X10*3/uL Baso # (Auto) 0.0 (0.0-0.2) X10*3/uL Abs Immat Gran (auto) 0.02 (0.00-0.03) X10*3/uL Absolute Neuts (auto) 3.6 (2.0-8.3) X10*3/uL Absolute Nucleated RBC 0.000 (0.0-0.012) X10*3/uL Nucleated RBC % (auto) 0.0 (0.0-0.2) /100WBC Smear Tech's Comments VERIFIED PT 13.2 H (9.9-13.0) SEC INR 1.2 H (0.9-1.1) Sodium 136 (135-145) mmol/L Potassium 2.9 L (3.3-5.1) mmol/L Chloride 91 L (96-108) mmol/L Carbon Dioxide 25 (22-29) mmol/L Anion Gap 23 H (12-20) BUN 5 L (9-16) mg/dL Creatinine 1.03 (0.5-1.4) mg/dL Estim Creat Clear Calc 68.8 Estimated GFR > 60 POC Glucose (60-115) mg/dL Random Glucose 356 H* (60-115) mg/dL Calcium 8.5 (8.4-10.2) mg/dL Magnesium 0.9 L* (1.6-2.6) mg/dL Total Bilirubin 1.4 H (0.0-1.0) mg/dL Direct Bilirubin 0.7 H (0.0-0.5) mg/dL AST 23 D (5-37) U/L ALT 15 (0-40) U/L Alkaline Phosphatase 108 D (39-117) U/L Troponin I High Sens (<3.5-35.0) ng/L Total Protein 7.1 D (6.5-8.0) g/dL Albumin 4.2 (3.5-5.0) g/dL Lipase 23 (8-78) U/L Ethyl Alcohol mg/dL Acetone, Qual Negative (Negative) COVID-19 (KAYLA) (Negative) COVID-19 Clin Com 05/27/21 05/27/21 05/27/21 Range/Units 10:25 11:36 13:44 WBC (4.8-10.8) X10*3/uL RBC (4.60-5.80) X10*6/uL Hgb (14.0-18.0) g/dl Hct (42-52) % MCV (80-98) fL MCH (27.0-33.0) pg MCHC (31.0-36.0) g/dl RDW (11.0-16.0) % Plt Count (160-400) X10*3/uL MPV (9.4-12.4) fL Immature Gran % (Auto) (0.0-0.4) % Neut % (Auto) (45-73) % Lymph % (Auto) (20-40) % [place] % (Auto) (2-11) % Eos % (Auto) (0-4) % Baso % (Auto) (0-2) % Lymph # (Auto) (1.2-4.9) X10*3/uL [place] # (Auto) (0.1-1.2) X10*3/uL Eos # (Auto) (0.0-0.4) X10*3/uL Baso # (Auto) (0.0-0.2) X10*3/uL Abs Immat Gran (auto) (0.00-0.03) X10*3/uL Absolute Neuts (auto) (2.0-8.3) X10*3/uL Absolute Nucleated RBC (0.0-0.012) X10*3/uL Nucleated RBC % (auto) (0.0-0.2) /100WBC Smear Tech's Comments PT (9.9-13.0) SEC INR (0.9-1.1) Sodium 138 (135-145) mmol/L Potassium 3.6 D (3.3-5.1) mmol/L Chloride 96 (96-108) mmol/L Carbon Dioxide 29 (22-29) mmol/L Anion Gap 17 (12-20) BUN 5 L (9-16) mg/dL Creatinine 0.93 (0.5-1.4) mg/dL Estim Creat Clear Calc 76.2 Estimated GFR > 60 POC Glucose 155 H (60-115) mg/dL Random Glucose 170 H D (60-115) mg/dL Calcium 8.2 L (8.4-10.2) mg/dL Magnesium 1.8 (1.6-2.6) mg/dL Total Bilirubin (0.0-1.0) mg/dL Direct Bilirubin (0.0-0.5) mg/dL AST (5-37) U/L ALT (0-40) U/L Alkaline Phosphatase (39-117) U/L Troponin I High Sens 4.5 (<3.5-35.0) ng/L Total Protein (6.5-8.0) g/dL Albumin (3.5-5.0) g/dL Lipase (8-78) U/L Ethyl Alcohol mg/dL Acetone, Qual (Negative) COVID-19 (KAYLA) (Negative) COVID-19 Clin Com 05/27/21 Range/Units 13:44 WBC (4.8-10.8) X10*3/uL RBC (4.60-5.80) X10*6/uL Hgb (14.0-18.0) g/dl Hct (42-52) % MCV (80-98) fL MCH (27.0-33.0) pg MCHC (31.0-36.0) g/dl RDW (11.0-16.0) % Plt Count (160-400) X10*3/uL MPV (9.4-12.4) fL Immature Gran % (Auto) (0.0-0.4) % Neut % (Auto) (45-73) % Lymph % (Auto) (20-40) % [place] % (Auto) (2-11) % Eos % (Auto) (0-4) % Baso % (Auto) (0-2) % Lymph # (Auto) (1.2-4.9) X10*3/uL [place] # (Auto) (0.1-1.2) X10*3/uL Eos # (Auto) (0.0-0.4) X10*3/uL Baso # (Auto) (0.0-0.2) X10*3/uL Abs Immat Gran (auto) (0.00-0.03) X10*3/uL Absolute Neuts (auto) (2.0-8.3) X10*3/uL Absolute Nucleated RBC (0.0-0.012) X10*3/uL Nucleated RBC % (auto) (0.0-0.2) /100WBC Smear Tech's Comments PT (9.9-13.0) SEC INR (0.9-1.1) Sodium (135-145) mmol/L Potassium (3.3-5.1) mmol/L Chloride (96-108) mmol/L Carbon Dioxide (22-29) mmol/L Anion Gap (12-20) BUN (9-16) mg/dL Creatinine (0.5-1.4) mg/dL Estim Creat Clear Calc Estimated GFR POC Glucose (60-115) mg/dL Random Glucose (60-115) mg/dL Calcium (8.4-10.2) mg/dL Magnesium (1.6-2.6) mg/dL Total Bilirubin (0.0-1.0) mg/dL Direct Bilirubin (0.0-0.5) mg/dL AST (5-37) U/L ALT (0-40) U/L Alkaline Phosphatase (39-117) U/L Troponin I High Sens 6.0 (<3.5-35.0) ng/L Total Protein (6.5-8.0) g/dL Albumin (3.5-5.0) g/dL Lipase (8-78) U/L Ethyl Alcohol mg/dL Acetone, Qual (Negative) COVID-19 (KAYLA) (Negative) COVID-19 Clin Com Discharge Plan Discharge Clinical Impression: Acute hypokalemia, Hypomagnesemia, Hyperglycemia, Poor compliance with medication Prescriptions: No Action Lantus Solostar U-100 Insulin 100 unit/mL (3 mL) insulin pen 12 unit subcut BEDTIME RF: 0 gabapentin 400 mg capsule 400 mg PO TID RF: 0 insulin lispro [Humalog KwikPen Insulin] 100 unit/mL Insulin Pen 10 unit SUBCUT TIDAC RF: 0 nicotine 14 mg/24 hr patch 24 hour 1 patch transdermal Q24H Qty: 28 RF: 0
[2021-05-27 10:10] LABS: Glucose, Whole Blood 355 mg/dL (60-115)
[2021-05-27] MEDS: 0.9 % Sodium Chloride 1,000 ML 999 ML IVCONT (10:24)
[2021-05-27] MEDS: Insulin Regular, Human 100 UNIT/ML 3 ML VIAL 10 UNIT IVPUSH (10:26)
[2021-05-27] MEDS: LORazepam 1 MG TABLET 2 MG PO (10:27)
[2021-05-27 10:36] LABS: Basophils Percent Auto 0.6 % (0-2); Eosinophils Percent Auto 0.2 % (0-4); Hemoglobin 12.8 g/dl (14.0-18.0); Imm Gran Abs Auto 0.02 X10*3/uL (0.00-0.03); Imm Gran Pct Auto 0.4 % (0.0-0.4); Lymphocytes Absolute Auto 0.7 X10*3/uL (1.2-4.9); Lymphocytes Percent Auto 13.9 % (20-40); MANUAL DIFF FLAG SCAN; Mean Corpuscular HGB Conc 36.6 g/dl (31.0-36.0); Mean Corpuscular Hemoglobin 30.8 pg (27.0-33.0); Mean Corpuscular Volume 84.1 fL (80-98); Mean Platelet Volume 9.1 fL (9.4-12.4); Monocytes Absolute Auto 0.4 X10*3/uL (0.1-1.2); Monocytes Percent Auto 8.6 % (2-11); Neutrophils Absolute Auto 3.6 X10*3/uL (2.0-8.3); Neutrophils Percent Auto 76.3 % (45-73); PLT CLUMP 1; Red Blood Count 4.16 X10*6/uL (4.60-5.80); Red Cell Distribution Width 14.2 % (11.0-16.0); SCAN SMEAR FLAG 1
[2021-05-27 10:39] LABS: INTERNATIONAL NORM RATIO 1.2 (0.9-1.1); Prothrombin Time 13.2 SEC (9.9-13.0)
[2021-05-27 10:51] LABS: Ethanol < 10 mg/dL
[2021-05-27 10:51] LABS: COVID-19 Test Negative (Negative)
[2021-05-27 10:59] LABS: Alanine Aminotransferase 15 U/L (0-40); Albumin Level 4.2 g/dL (3.5-5.0); Alkaline Phosphatase 108 U/L (39-117); Anion Gap 23 (12-20); Aspartate Amino Transferase 23 U/L (5-37); Bilirubin Direct 0.7 mg/dL (0.0-0.5); Bilirubin Total 1.4 mg/dL (0.0-1.0); Blood Urea Nitrogen 5 mg/dL (9-16); Calcium 8.5 mg/dL (8.4-10.2); Carbon Dioxide 25 mmol/L (22-29); Chloride 91 mmol/L (96-108); Creatinine Clr Calc Pharmacy 68.8; Estimated Glomerular Filt Rate > 60; Glucose Random 356 mg/dL (60-115); Lipase 23 U/L (8-78); Magnesium 0.9 mg/dL (1.6-2.6); Potassium 2.9 mmol/L (3.3-5.1); Sodium 136 mmol/L (135-145); Total Protein 7.1 g/dL (6.5-8.0)
[2021-05-27 11:00] LABS: Troponin-I High Sensitivity 4.5 ng/L (<3.5-35.0)
[2021-05-27 11:07] LABS: White Blood Count 4.8 X10*3/uL (4.8-10.8)
[2021-05-27 11:08] LABS: Platelet Count 64 X10*3/uL (160-400); SLIDE REVIEW VERIFIED
--- NOTE | 2021-05-27 11:11 | PC.NURSE ---
Pt reports no ETOH x 2 days in attempt to detox. Also reports interest in assisted living facility if no admission. Reports n/v/d x 2 days with cp starting today. states non compliance with insulin x 2 days also. Pt is alert/oriented. nsr on tele. Skin pwd.
[2021-05-27 11:39] LABS: Glucose, Whole Blood 155 mg/dL (60-115)
[2021-05-27] MEDS: Magnesium Sulfate/H2O 2 GM/50 ML PIGGYBACK IV (11:44)
[2021-05-27] MEDS: Potassium Chloride Packet 20 MEQ PACKET 40 MEQ PO (11:44)
[2021-05-27] MEDS: ondansetron HCL 4 MG/2 ML VIAL IVPUSH (12:00)
--- NOTE | 2021-05-27 12:06 | PC.NURSE ---
learning coach to bedside at this time
[2021-05-27 12:10] LABS: Acetone, serum QL Negative (Negative)
--- NOTE | 2021-05-27 13:04 | MHC.RECOVSUP ---
? Reason for consult:Continuity of care o Current location:Bed 18 o Identified substance use concern:ETOH - Withdrawal - Seeking ATS (detox) - Support ? Intervention: o ATS bed search started/completed/in proces o Community resources provided o Harm reduction discussion ? Plan: o Referral to [facility] o Bed search in progress to o Patient to follow up with [facility] after discharge ? Additional information: Pt. waiting to be medically cleared. Pt. seeking detox.
--- NOTE | 2021-05-27 14:06 | ECG_ITS ---
Test Reason : CHEST PAIN Blood Pressure : / mmHG Vent. Rate : 101 BPM Atrial Rate : 101 BPM P-R Int : 158 ms QRS Dur : 074 ms QT Int : 408 ms P-R-T Axes : 041 022 045 degrees QTc Int : 529 ms Sinus tachycardia Prolonged QT Abnormal ECG When compared with ECG of 27-MAY-2021 09:55, No significant change was found Referred By: Consuelo Izquierdo Electronically Signed By:LINDA BAR
[2021-05-27 14:11] LABS: Anion Gap 17 (12-20); Blood Urea Nitrogen 5 mg/dL (9-16); Calcium 8.2 mg/dL (8.4-10.2); Carbon Dioxide 29 mmol/L (22-29); Chloride 96 mmol/L (96-108); Creatinine Clr Calc Pharmacy 76.2; Estimated Glomerular Filt Rate > 60; Glucose Random 170 mg/dL (60-115); Magnesium 1.8 mg/dL (1.6-2.6); Potassium 3.6 mmol/L (3.3-5.1); Sodium 138 mmol/L (135-145)
--- NOTE | 2021-05-27 14:44 | PC.NURSE ---
Plan for PT/Case Management
--- NOTE | 2021-05-27 14:46 | PC.NURSE ---
PT at bedside for eval
[2021-05-27 14:57] LABS: Appearance Urine CLEAR; Color Urine YELLOW; Glucose Urine UA 500 MG/DL (NEG); Leukocyte Esterase Urine NEG (NEG); Nitrite Urine NEG (NEG); Specific Gravity - Urine 1.025 (1.005-1.025); Urine Blood NEG (NEG); Urine Ketones 15 MG/DL (NEG); Urine Protein TRACE MG/DL (NEG-TRACE)
[2021-05-27 15:09] LABS: Amphetamine Screen Urine Not Detected (Not Detect); Barbiturates, Urine Not Detected (Not Detect); Benzodiazepines Screen Urine Not Detected (Not Detect); Cannabinoid Screen Urine Not Detected (Not Detect); Cocaine Screen Urine Not Detected (Not Detect); Fentanyl, urine Not Detected (Not Detect); Opiate Screen Urine Not Detected (Not Detect); Phencyclidine Screen Urine Not Detected (Not Detect)
--- NOTE | 2021-05-27 15:23 | MHC.CM.PN ---
PATIENT REQUESTS BED REFERRAL AT [facility] NOW [facility]. PATIENT REPORTS THAT HE IS FULLY VACCINATED AGAINST COVID-19 WITH THE MODERNA VACCINE APPROXIMATELY6 MONTHS AGO .
--- NOTE | 2021-05-27 17:27 | PHA.MEDREC ---
Pharmacy Consult ? Medication Reconciliation Pharmacy has completed the medication reconciliation. Spoke with patient in ED. Patient reports taking Gabapentin, Wellbutrin, lantus and Humalog. All med have not been filled at his [facility] pharmacy in quite some time. Wellbutrin was last filled on 01/02/20.
--- NOTE | 2021-05-27 18:44 | PC.NURSE ---
plan for dayanara garcia tomorrow
[2021-05-28 07:26] VITALS: BP 125/85; PULSE 69; RESP 14; TEMP 36.9; O2SAT 98
[2021-05-28] MEDS: Ondansetron ODT 4 MG TAB.RAPDIS TRANSLINGU (08:11)
[2021-05-28] MEDS: Gabapentin 400 MG CAPSULE PO ×3 (08:11→21:35)
[2021-05-28] MEDS: Nicotine 21 MG PATCH.TD24 TRANSDERMA (08:32)
[2021-05-28] MEDS: Acetaminophen 325 MG TABLET 975 MG PO ×2 (08:32→17:23)
--- NOTE | 2021-05-28 09:44 | MHC.CM.ED ---
Patient remains in ER. [facility] is in the process of obtaining insurance auth. Continue to monitor for d/c needs.
[2021-05-28 11:23] LABS: Glucose, Whole Blood 309 mg/dL (60-115)
[2021-05-28] MEDS: Insulin Lispro 100 UNIT/ML 3 ML VIAL 10 UNIT SUBCUT ×2 (13:23→18:02)
[2021-05-28 14:51] VITALS: BP 91/73; PULSE 84; RESP 12; TEMP 36.9; O2SAT 100
[2021-05-28 17:41] LABS: Glucose, Whole Blood 189 mg/dL (60-115)
[2021-05-28] MEDS: Insulin Glargine,Hum.rec.anlog 100 UNIT/ML 10 ML VIAL 12 UNIT SUBCUT (21:35)
[2021-05-28 22:55] VITALS: BP 105/69; PULSE 68; RESP 12; TEMP 36.9; O2SAT 96
[2021-05-29 08:09] LABS: Glucose, Whole Blood 253 mg/dL (60-115)
[2021-05-29 08:19] VITALS: BP 111/79; PULSE 73; RESP 18; TEMP 37.3; O2SAT 99
[2021-05-29] MEDS: Gabapentin 400 MG CAPSULE PO ×2 (09:26→14:30)
[2021-05-29] MEDS: Nicotine 14 MG PATCH.TD24 TRANSDERMA (09:26)
[2021-05-29] MEDS: Insulin Lispro 100 UNIT/ML 3 ML VIAL 10 UNIT SUBCUT ×2 (09:26→13:52)
--- NOTE | 2021-05-29 09:50 | MHC.CM.ED ---
Insurance auth obtained by [facility]. Action chair van booked for 1030am. Patient, Ary TORRES and Monica DIAZ aware. Continue to monitor for d/c needs.
[2021-05-29] MEDS: Ondansetron ODT 4 MG TAB.RAPDIS TRANSLINGU (10:20)
[2021-05-29 11:35] VITALS: BP 96/65; PULSE 85; RESP 14; TEMP 37.2; O2SAT 97
[2021-05-29 11:43] LABS: Glucose, Whole Blood 190 mg/dL (60-115)
[2021-05-29 12:45] LABS: Glucose, Whole Blood 145 mg/dL (60-115)
--- NOTE | 2021-05-29 13:53 | PC.NURSE ---
pt ate 60% of lunch
[2021-05-29] MEDS: LORazepam 1 MG TABLET PO (14:31)
== END 2021-05-29 17:06 | disposition skilled nursing facility (03) ==
PROVIDERS: Emergency Provider Emergency Medicine; PCP Internal Medicine
DX: E11.65 Type 2 diabetes mellitus with hyperglycemia (principal); R07.9 Chest pain, unspecified; E23.2 Diabetes insipidus; E61.2 Magnesium deficiency; Z79.4 Long term (current) use of insulin; Z91.14 Patient's other noncompliance with medication regimen; Z20.822 Contact with and (suspected) exposure to COVID-19; F17.210 Nicotine dependence, cigarettes, uncomplicated; Z71.6 Tobacco abuse counseling; Z79.899 Other long term (current) drug therapy
CPT/HCPCS: 36415; 71045; 80048; 80076; 80307; 81003; 82009; 82077; 82947; 83690; 83735; 84484; 85025; 85610; 87635; 93005; 96361; 96365; 96366; 96375; 97162; 99285; J2405; J3475

== ENCOUNTER 2021-06-24 06:32 | Emergency (ER) | payer OTHER, SELFPAY ==
--- NOTE | ~2021-06-24 | XR_ITS ---
EXAMINATION: XR CHEST CLINICAL INFORMATION: Chest pain COMPARISON: Frontal view 05/27/21 TECHNIQUE: Upright frontal portable view of the chest was obtained. FINDINGS: Devices overlie the patient. Lordotic projection. Slight tracheal deviation toward the left at the thoracic inlet is likely positional. The cardiac size jason and vasculature are within normal limits. Lung volumes are maintained. There is no consolidation or major zone of atelectasis. The visualized pleural margins appear within normal limits. No evidence of pneumoperitoneum XR/XR chest 1V IMPRESSION: No acute chest disease. No etiology for chest pain demonstrated
--- NOTE | 2021-06-24 06:41 | ECG_ITS ---
Test Reason : CP Blood Pressure : / mmHG Vent. Rate : 091 BPM Atrial Rate : 091 BPM P-R Int : 154 ms QRS Dur : 076 ms QT Int : 388 ms P-R-T Axes : 071 010 061 degrees QTc Int : 477 ms Normal sinus rhythm Low voltage QRS Otherwise normal ECG When compared with ECG of 27-MAY-2021 14:29, No significant changes seen Referred By: Generic ED Physician Electronically Signed By:GIANNA SOUZA MD
[2021-06-24 06:42] VITALS: BP 114/84; PULSE 90; RESP 16; TEMP 37.2; O2SAT 99; BMI 23.3
[2021-06-24 06:57] LABS: Glucose, Whole Blood 486 mg/dL (60-115)
[2021-06-24 07:12] LABS: MANUAL DIFF FLAG NO
[2021-06-24 07:13] VITALS: BP 118/76; PULSE 88; RESP 19
[2021-06-24 07:14] LABS: Basophils Percent Auto 0.3 % (0-2); Eosinophils Percent Auto 0.6 % (0-4); Hematocrit 35.8 % (42.0-52.0); Imm Gran Abs Auto 0.03 X10*3/uL (0.00-0.03); Imm Gran Pct Auto 0.5 % (0.0-0.4); Lymphocytes Absolute Auto 1.5 X10*3/uL (1.2-4.9); Lymphocytes Percent Auto 23.1 % (20-40); Mean Corpuscular HGB Conc 36.3 g/dl (31.0-36.0); Mean Corpuscular Hemoglobin 30.4 pg (27.0-33.0); Mean Corpuscular Volume 83.8 fL (80.0-98.0); Mean Platelet Volume 9.7 fL (9.4-12.4); Monocytes Absolute Auto 0.5 X10*3/uL (0.1-1.2); Monocytes Percent Auto 8.3 % (2-11); Neutrophils Absolute Auto 4.39 x10*3/uL (2.0-8.3); Neutrophils Percent Auto 67.2 % (45-73); Red Blood Count 4.27 X10*6/uL (4.60-5.80); Red Cell Distribution Width 13.8 % (11.0-16.0); White Blood Count 6.5 X10*3/uL (4.8-10.8)
[2021-06-24 07:15] LABS: Platelet Count 68 X10*3/uL (160-400)
[2021-06-24 07:35] LABS: Anion Gap 21 (12-20); Blood Urea Nitrogen 12 mg/dL (9-16); Carbon Dioxide 28 mmol/L (22-29); Chloride 83 mmol/L (96-108); Creatinine Clr Calc Pharmacy 62.7; Estimated Glomerular Filt Rate > 60; Glucose Random 518 mg/dL (60-115); Potassium 3.3 mmol/L (3.3-5.1); Sodium 129 mmol/L (135-145)
[2021-06-24 07:38] LABS: Troponin-I High Sensitivity < 3.5 ng/L (<3.5-35.0)
--- NOTE | 2021-06-24 08:01 | ED.CHESTPAIN ---
HPI - Chest Pain General Chief Complaint: Chest Pain Time Seen by Provider: 06/24/21 07:59 Source: patient Mode of arrival: EMS Limitations: no limitations History of Present Illness HPI narrative: 61-year-old male past medical history significant for diabetes, alcohol use disorder presents to the emergency department with chest pain x6 hours. He states that this chest pain started when he was sitting in a chair, watching TV. He states it started suddenly, it was centralized and radiated to his left arm. He states he has gotten chest pain like this before. He states that the pain is constant in nature, but has been fluctuating in intensity over the past 6 hours. He denies shortness of breath, palpitations, diaphoresis, abdominal pain, nausea, vomiting, weakness, recent illness, cough, fevers, chills. He is a current everyday smoker he smokes 2 packs per day, has been smoking for 30 years. MD complaint: chest pain Onset (ago): hour(s) (6) Timing of current episode: constant Prior episodes: Yes Onset: during rest Pain location: substernal Pain radiation: left shoulder Severity: moderate Quality: sharp Relieving factors: nothing Exacerbating factors: nothing Treatment prior to arrival: aspirin (324) and other (zofran 4mg) Related Data Home Medications Medication Instructions Recorded Confirmed gabapentin 400 mg capsule 400 mg PO TID 02/27/21 05/27/21 insulin glargine 100 unit/mL (3 12 unit SUBCUT BEDTIME 02/27/21 05/27/21 mL) subcutaneous pen (Lantus Solostar U-100 Insulin) insulin lispro 100 unit/mL 10 unit SUBCUT TIDAC 04/01/21 05/27/21 subcutaneous pen (Humalog KwikPen (U-100) Insulin) Previous Rx's Medication Instructions Recorded nicotine 14 mg/24 hr daily 1 patch TRANSDERMAL Q24H #28 ea 05/12/21 transdermal patch blood sugar diagnostic (FreeStyle #100 ea 06/23/21 Lite Strips) Allergies Allergy/AdvReac Type Severity Reaction Status Date / Time No Known Drug Allergies Allergy Unknown Verified 03/24/21 00:43 Review of Systems Review of Systems: Constitutional : No Weight loss, No Fever, No Chills, No Fatigue, No Malaise ENT/Mouth : No sore throat, No Rhinorrhea Eyes: No Eye Pain, No Swelling, No Redness Cardiovascular : + Chest Pain, No SOB, No Dyspnea on Exertion, No Orthopnea, No Edema, No Palpitations Respiratory : No Cough, No Sputum, No Wheezing Gastrointestinal : No Nausea, No Vomiting, No Diarrhea, No Constipation, No abdominal Pain, No Hematochezia, No Melena Genitourinary : No Dysuria, No Urinary Frequency, No Hematuria, Musculoskeletal : No joint pain, No Myalgias, No Joint Swelling Skin : No Skin Lesions, No rash Neuro : No Weakness, No Numbness, No Dizziness, No Headache All other systems reviewed and are negative [facility] Past Medical History Attestation statement: The following information was validated with the patient. Source: old records reviewed and nursing notes reviewed Medical History Acidosis, lactic Acute dehydration Acute hyperglycemia Alcohol abuse Alcohol abuse Alcohol dependence with withdrawal Alcohol use disorder, severe, dependence Alcoholic gastritis Attention deficit disorder Degenerative disc disease, cervical Depression Diabetes mellitus Dyslipidemia Head injury History of substance abuse Hypomagnesemia Hypotestosteronism Osteoarthritis of right hand Pancreatic cyst Pancreatitis Prolonged QT interval Thrombocytopenia Vomiting Surgical History History of surgery Family History Family History Father Cancer Mother Cancer Diabetes Social History Social History Household Members: None Housing: Apartment Do you presently have visiting nurse or other home services: No Unable to assess alcohol history related to: Refusing to respond Alcohol intake: current Alcohol intake frequency: 3 or more drinks per day Alcohol type: hard liquor Patient Tobacco Use Status: Current everyday Tobacco user Tobacco use type: Cigarette Cigarette Packs Per Day: 2 Cigarettes Per Day: 40.0 Substance Use Type: Marijuana Advance Directives: Yes Advance Directives on File: Yes Advance Directives Date on File: 03/05/21 service: No Current occupational status: unemployed and disabled Current occupation: Right Handed Physical Exam Vital Signs: Vital Signs: Last Vital Signs Temp 99 F 06/24/21 06:42 Pulse 88 06/24/21 09:36 Resp 17 06/24/21 09:36 BP 112/74 06/24/21 09:36 Pulse Ox 99 06/24/21 06:42 Body Mass Index 23.3 Appearance: Alert. Oriented X3. No acute distress. Eyes: Pupils equal, round and reactive to light. ENT: Pharynx normal. Neck: Normal inspection. Neck supple. CVS: Normal heart rate and rhythm. Pulses normal. + pain w/ palpation over anterior left chest Respiratory: No respiratory distress. Breath sounds normal. Abdomen: Soft and nontender. Skin: Skin warm and dry. Normal skin color. Normal skin turgor. Extremities: No lower extremity edema. No calf ttp Neuro: Oriented X 3. No motor deficit. No sensory deficit. Course Course Course Narrative: repeat trop negative, BS decreased, chemistry pending K repleted, tolerating PO feels better stable for DC Reevaluation(s) Reevaluation #1: Gap closed, currently repeating potassium. Time: 11:09 MDM - Chest Pain MDM Narrative Medical decision making narrative: 815 61-year-old male past medical history significant for DM, alcohol use disorder presents to the emergency department with 6 hours of constant substernal chest pain radiating to the left shoulder. He states he was sitting when it started, he has gotten chest pain like this in the past. Current 2PPD smoker X30 years . Pain is reproduceable with palpation he has no signs of DVT, it is not pleuritic he has no hypoxia I do not suspect PE. The pain seems MSK in nature ACS seems unlikely - two troponins ordered. Upon physical examination there is pain to palpation to the left anterior chest. Lungs are clear to auscultation. Abdomen soft nontender nondistended. No focal neuro deficits. Throughout the entire examination, the patient is sitting upright, speaking in full sentences, and in no signs of acute distress. Vital signs stable This time is to obtain basic labs, ethanol, troponin, point of care, chest x-ray, EKG. He will be given regular insulin due to an elevated POC of 518, he will receive 10 units. Magnesium sulfate, and fluids. Will rule out ACS. Lab Data Result diagrams: 06/24/21 07:08 06/24/21 14:33 Labs: Lab Results 06/24/21 06/24/21 06/24/21 Range/Units 06:53 07:08 07:08 WBC 6.5 (4.8-10.8) X10*3/uL RBC 4.27 L (4.60-5.80) X10*6/uL Hgb 13.0 L (14.0-18.0) g/dl Hct 35.8 L (42.0-52.0) % MCV 83.8 (80.0-98.0) fL MCH 30.4 (27.0-33.0) pg MCHC 36.3 H (31.0-36.0) g/dl RDW 13.8 (11.0-16.0) % Plt Count 68 L (160-400) X10*3/uL MPV 9.7 (9.4-12.4) fL Immature Gran % (Auto) 0.5 H (0.0-0.4) % Neut % (Auto) 67.2 (45-73) % Lymph % (Auto) 23.1 (20-40) % [place] % (Auto) 8.3 (2-11) % Eos % (Auto) 0.6 (0-4) % Baso % (Auto) 0.3 (0-2) % Lymph # (Auto) 1.5 (1.2-4.9) X10*3/uL [place] # (Auto) 0.5 (0.1-1.2) X10*3/uL Eos # (Auto) 0.0 (0.0-0.4) X10*3/uL Baso # (Auto) 0.0 (0.0-0.2) X10*3/uL Abs Immat Gran (auto) 0.03 (0.00-0.03) X10*3/uL Absolute Neuts (auto) 4.39 (2.0-8.3) x10*3/uL Absolute Nucleated RBC 0.000 (0.0-0.012) X10*3/uL Nucleated RBC % (auto) 0.0 (0.0-0.2) /100WBC Sodium 129 L (135-145) mmol/L Potassium 3.3 (3.3-5.1) mmol/L Chloride 83 L (96-108) mmol/L Carbon Dioxide 28 (22-29) mmol/L Anion Gap 21 H (12-20) BUN 12 D (9-16) mg/dL Creatinine 1.13 (0.5-1.4) mg/dL Estim Creat Clear Calc 62.7 Estimated GFR > 60 POC Glucose 486 H* (60-115) mg/dL Random Glucose 518 H* (60-115) mg/dL Calcium 9.0 D (8.4-10.2) mg/dL Magnesium 1.6 (1.6-2.6) mg/dL Total Bilirubin 1.4 H (0.0-1.0) mg/dL Direct Bilirubin 0.7 H (0.0-0.5) mg/dL AST 12 D (5-37) U/L ALT 12 (0-40) U/L Alkaline Phosphatase 124 H (39-117) U/L Troponin I High Sens (<3.5-35.0) ng/L Total Protein 7.2 (6.5-8.0) g/dL Albumin 4.3 (3.5-5.0) g/dL Lipase 153 H (8-78) U/L Ethyl Alcohol mg/dL 06/24/21 06/24/21 06/24/21 Range/Units 07:08 08:23 08:47 WBC (4.8-10.8) X10*3/uL RBC (4.60-5.80) X10*6/uL Hgb (14.0-18.0) g/dl Hct (42.0-52.0) % MCV (80.0-98.0) fL MCH (27.0-33.0) pg MCHC (31.0-36.0) g/dl RDW (11.0-16.0) % Plt Count (160-400) X10*3/uL MPV (9.4-12.4) fL Immature Gran % (Auto) (0.0-0.4) % Neut % (Auto) (45-73) % Lymph % (Auto) (20-40) % [place] % (Auto) (2-11) % Eos % (Auto) (0-4) % Baso % (Auto) (0-2) % Lymph # (Auto) (1.2-4.9) X10*3/uL [place] # (Auto) (0.1-1.2) X10*3/uL Eos # (Auto) (0.0-0.4) X10*3/uL Baso # (Auto) (0.0-0.2) X10*3/uL Abs Immat Gran (auto) (0.00-0.03) X10*3/uL Absolute Neuts (auto) (2.0-8.3) x10*3/uL Absolute Nucleated RBC (0.0-0.012) X10*3/uL Nucleated RBC % (auto) (0.0-0.2) /100WBC Sodium (135-145) mmol/L Potassium (3.3-5.1) mmol/L Chloride (96-108) mmol/L Carbon Dioxide (22-29) mmol/L Anion Gap (12-20) BUN (9-16) mg/dL Creatinine (0.5-1.4) mg/dL Estim Creat Clear Calc Estimated GFR POC Glucose 484 H* (60-115) mg/dL Random Glucose (60-115) mg/dL Calcium (8.4-10.2) mg/dL Magnesium (1.6-2.6) mg/dL Total Bilirubin (0.0-1.0) mg/dL Direct Bilirubin (0.0-0.5) mg/dL AST (5-37) U/L ALT (0-40) U/L Alkaline Phosphatase (39-117) U/L Troponin I High Sens < 3.5 (<3.5-35.0) ng/L Total Protein (6.5-8.0) g/dL Albumin (3.5-5.0) g/dL Lipase (8-78) U/L Ethyl Alcohol < 10 mg/dL 06/24/21 06/24/21 06/24/21 Range/Units 09:23 10:05 10:05 WBC (4.8-10.8) X10*3/uL RBC (4.60-5.80) X10*6/uL Hgb (14.0-18.0) g/dl Hct (42.0-52.0) % MCV (80.0-98.0) fL MCH (27.0-33.0) pg MCHC (31.0-36.0) g/dl RDW (11.0-16.0) % Plt Count (160-400) X10*3/uL MPV (9.4-12.4) fL Immature Gran % (Auto) (0.0-0.4) % Neut % (Auto) (45-73) % Lymph % (Auto) (20-40) % [place] % (Auto) (2-11) % Eos % (Auto) (0-4) % Baso % (Auto) (0-2) % Lymph # (Auto) (1.2-4.9) X10*3/uL [place] # (Auto) (0.1-1.2) X10*3/uL Eos # (Auto) (0.0-0.4) X10*3/uL Baso # (Auto) (0.0-0.2) X10*3/uL Abs Immat Gran (auto) (0.00-0.03) X10*3/uL Absolute Neuts (auto) (2.0-8.3) x10*3/uL Absolute Nucleated RBC (0.0-0.012) X10*3/uL Nucleated RBC % (auto) (0.0-0.2) /100WBC Sodium 133 L (135-145) mmol/L Potassium 2.7 L (3.3-5.1) mmol/L Chloride 89 L (96-108) mmol/L Carbon Dioxide 30 H (22-29) mmol/L Anion Gap 17 (12-20) BUN 13 (9-16) mg/dL Creatinine 0.98 (0.5-1.4) mg/dL Estim Creat Clear Calc 72.3 Estimated GFR > 60 POC Glucose 252 H (60-115) mg/dL Random Glucose 209 H D (60-115) mg/dL Calcium 8.8 (8.4-10.2) mg/dL Magnesium (1.6-2.6) mg/dL Total Bilirubin (0.0-1.0) mg/dL Direct Bilirubin (0.0-0.5) mg/dL AST (5-37) U/L ALT (0-40) U/L Alkaline Phosphatase (39-117) U/L Troponin I High Sens < 3.5 (<3.5-35.0) ng/L Total Protein (6.5-8.0) g/dL Albumin (3.5-5.0) g/dL Lipase (8-78) U/L Ethyl Alcohol mg/dL 11/02/21 Range/Units 14:33 WBC (4.8-10.8) X10*3/uL RBC (4.60-5.80) X10*6/uL Hgb (14.0-18.0) g/dl Hct (42.0-52.0) % MCV (80.0-98.0) fL MCH (27.0-33.0) pg MCHC (31.0-36.0) g/dl RDW (11.0-16.0) % Plt Count (160-400) X10*3/uL MPV (9.4-12.4) fL Immature Gran % (Auto) (0.0-0.4) % Neut % (Auto) (45-73) % Lymph % (Auto) (20-40) % [place] % (Auto) (2-11) % Eos % (Auto) (0-4) % Baso % (Auto) (0-2) % Lymph # (Auto) (1.2-4.9) X10*3/uL [place] # (Auto) (0.1-1.2) X10*3/uL Eos # (Auto) (0.0-0.4) X10*3/uL Baso # (Auto) (0.0-0.2) X10*3/uL Abs Immat Gran (auto) (0.00-0.03) X10*3/uL Absolute Neuts (auto) (2.0-8.3) x10*3/uL Absolute Nucleated RBC (0.0-0.012) X10*3/uL Nucleated RBC % (auto) (0.0-0.2) /100WBC Sodium (135-145) mmol/L Potassium 3.3 D (3.3-5.1) mmol/L Chloride (96-108) mmol/L Carbon Dioxide (22-29) mmol/L Anion Gap (12-20) BUN (9-16) mg/dL Creatinine (0.5-1.4) mg/dL Estim Creat Clear Calc Estimated GFR POC Glucose (60-115) mg/dL Random Glucose (60-115) mg/dL Calcium (8.4-10.2) mg/dL Magnesium (1.6-2.6) mg/dL Total Bilirubin (0.0-1.0) mg/dL Direct Bilirubin (0.0-0.5) mg/dL AST (5-37) U/L ALT (0-40) U/L Alkaline Phosphatase (39-117) U/L Troponin I High Sens (<3.5-35.0) ng/L Total Protein (6.5-8.0) g/dL Albumin (3.5-5.0) g/dL Lipase (8-78) U/L Ethyl Alcohol mg/dL ECG Data ECG #1: Attestation: I personally reviewed and interpreted this ECG as follows: ECG interpretation date: 06/24/21 ECG interpretation time: 08:01 Interpretation: Rate: 91 Rhythm: NSR [place]: left Normal P waves. Normal RICARDO. Normal QRS complex. ST T wave : no LUIS FERNANDO normal qTC: prolonged prior studies: no acute ischemia The study has been interpreted contemporaneously by me. . Critical Care Time Critical Care Time Critical Care Time: Yes Total Critical Care Time: 45 Attestation: IV insulin, IV, repeat labs, IV lyte repletion I attest to this time spent taking care of the patient Discharge Plan Discharge Clinical Impression: Atypical chest pain, Acute hyperglycemia, Hypokalemia, Hypomagnesemia Patient Disposition: Home, Self-Care Instructions: Chest Pain (ED), Hypokalemia (ED), Hypomagnesemia (ED), Diabetic Hyperglycemia (ED) Additional Instructions: return to ED for any worsening symptoms or concerns Prescriptions: No Action (DME) FreeStyle Lite Strips Strip See Rx Instructions .Route Qty: 100 RF: 6 Lantus Solostar U-100 Insulin 100 unit/mL (3 mL) insulin pen 12 unit subcut BEDTIME RF: 0 gabapentin 400 mg capsule 400 mg PO TID RF: 0 insulin lispro [Humalog KwikPen Insulin] 100 unit/mL Insulin Pen 10 unit SUBCUT TIDAC RF: 0 nicotine 14 mg/24 hr patch 24 hour 1 patch transdermal Q24H Qty: 28 RF: 0 Referrals: Jose White MD [Primary Care Provider] - 2 days Discharge Date/Time: 06/24/21 15:24
[2021-06-24 08:26] LABS: Glucose, Whole Blood 484 mg/dL (60-115)
[2021-06-24] MEDS: 0.9 % Sodium Chloride 1,000 ML 999 ML IV (08:29)
[2021-06-24] MEDS: Magnesium Sulfate/H2O 2 GM/50 ML PIGGYBACK IV (08:29)
[2021-06-24] MEDS: Insulin Regular, Human 100 UNIT/ML 3 ML VIAL 10 UNIT IVPUSH (08:33)
--- NOTE | 2021-06-24 08:34 | PC.NURSE ---
This RN unable to scan insulin barcode as no barcode stickers available in pyxis when this RN removed med. Pt requesting nicotine patch, c/o nausea. Dr Forrest to be made aware.
--- NOTE | 2021-06-24 08:41 | PC.NURSE ---
Dr Forrest aware of pt's requests.
[2021-06-24 08:43] LABS: Alanine Aminotransferase 12 U/L (0-40); Albumin Level 4.3 g/dL (3.5-5.0); Alkaline Phosphatase 124 U/L (39-117); Aspartate Amino Transferase 12 U/L (5-37); Bilirubin Direct 0.7 mg/dL (0.0-0.5); Bilirubin Total 1.4 mg/dL (0.0-1.0); Lipase 153 U/L (8-78); Magnesium 1.6 mg/dL (1.6-2.6); Total Protein 7.2 g/dL (6.5-8.0)
[2021-06-24] MEDS: Metoclopramide HCl 10 MG/2 ML VIAL 5 MG IVPUSH (08:48)
[2021-06-24] MEDS: Nicotine 21 MG PATCH.TD24 TRANSDERMA (08:48)
[2021-06-24] MEDS: diphenhydrAMINE HCL 50 MG/ML VIAL 25 MG IVPUSH (08:48)
--- NOTE | 2021-06-24 09:04 | PC.NURSE ---
Per Dr Forrest, hold 2nd dose of insulin at this time until first dose and fluids have time to take effect. Pt's BGL to be reassessed prior to 2nd dose. Tello RN aware.
[2021-06-24 09:05] LABS: Ethanol < 10 mg/dL
[2021-06-24 09:27] LABS: Glucose, Whole Blood 252 mg/dL (60-115)
[2021-06-24 09:36] VITALS: BP 112/74; PULSE 88; RESP 17
[2021-06-24] MEDS: Gabapentin 400 MG CAPSULE PO (09:36)
[2021-06-24 10:31] LABS: Troponin-I High Sensitivity < 3.5 ng/L (<3.5-35.0)
[2021-06-24 10:46] LABS: Anion Gap 17 (12-20); Blood Urea Nitrogen 13 mg/dL (9-16); Calcium 8.8 mg/dL (8.4-10.2); Carbon Dioxide 30 mmol/L (22-29); Chloride 89 mmol/L (96-108); Creatinine Clr Calc Pharmacy 72.3; Estimated Glomerular Filt Rate > 60; Glucose Random 209 mg/dL (60-115); Potassium 2.7 mmol/L (3.3-5.1); Sodium 133 mmol/L (135-145)
[2021-06-24] MEDS: Potassium Chloride/H20 10 MEQ/100 ML PIGGYBACK 100 MEQ IV ×2 (11:16→12:58)
[2021-06-24] MEDS: Potassium Chloride ER 20 MEQ TAB.ER.PRT 40 MEQ PO (11:16)
--- NOTE | 2021-06-24 11:54 | MHC.RECOVSUP ---
? Reason for consult:Recovery Support o Current location:[facility] o Identified substance use concern: ETOH - Withdrawal - Support ? Intervention: o MAT started or to be started o Community resources provided o Harm reduction discussion ? Plan: o Referral to [facility] o Patient to follow up with HF after discharge ? Additional information:Patient here for Chest pain, says that he is in withdrawel, spoke with him re:MAT and harm reduction. Pt. given resources to get in touch with the [facility] and [facility].
[2021-06-24 14:55] LABS: Potassium 3.3 mmol/L (3.3-5.1)
== END 2021-06-24 15:24 | disposition home or self-care (01) ==
PROVIDERS: Emergency Provider Emergency Medicine; PCP Internal Medicine
DX: R07.89 Other chest pain (principal); E23.2 Diabetes insipidus; E11.65 Type 2 diabetes mellitus with hyperglycemia; E83.42 Hypomagnesemia; F17.210 Nicotine dependence, cigarettes, uncomplicated; F12.90 Cannabis use, unspecified, uncomplicated; Z79.4 Long term (current) use of insulin; Z79.899 Other long term (current) drug therapy; Z20.822 Contact with and (suspected) exposure to COVID-19; Z71.6 Tobacco abuse counseling
CPT/HCPCS: 36415; 71045; 80048; 80076; 82077; 82947; 83690; 83735; 84132; 84484; 85025; 93005; 96365; 96366; 96367; 96375; 96376; 99284; 99291; J1200; J2765; J3475

== ENCOUNTER 2021-06-28 13:12 | Emergency (ER) | payer OTHER, SELFPAY ==
[2021-06-28] VITALS (8 sets, daily range): BP systolic 91–133; BP diastolic 62–89; PULSE 80–92; RESP 16–20; TEMP 36.6–36.9; O2SAT 98–100; BMI 26.5
--- NOTE | ~2021-06-28 | CT_ITS ---
EXAMINATION: CT HEAD WITHOUT CONTRAST CLINICAL INFORMATION: EtOH, fall, rule out intracranial abnormality. COMPARISON: 04/03/[address] scan. TECHNIQUE: Contiguous axial imaging was performed from the skull base to vertex without intravenous administration of contrast. Coronal and sagittal reformatted images were obtained. This CT examination was performed using dose optimization techniques as appropriate, variously including the following: *Automated exposure control *Adjustment of mA and/or kV according to patient size (this includes techniques or standardized protocols for targeted exams where dose is matched to indication/reason for exam; i.e. extremities or head) *Use of iterative reconstruction technique DLP: 736 mGy-cm FINDINGS: There is mild widening of the cortical sulci and associated ventriculomegaly. The lateral ventricles are symmetrical. The third and fourth ventricles are in their normal midline position. The basilar and prepontine cisterns are unremarkable. There is no acute intra or extracerebral abnormality. There is no mass effect or midline shift. Sections through the bony calvarium are unremarkable. Mild subgaleal thickening in the left high parietal region without significant change. The orbits are intact. The paranasal sinuses are clear. The mastoid air cells are clear. CT/CT head/brain wo con IMPRESSION: No acute intracranial pathology.
--- NOTE | ~2021-06-28 | CT_ITS ---
EXAMINATION: HEAD CT WITHOUT CONTRAST CERVICAL SPINE CT WITHOUT CONTRAST CLINICAL INFORMATION: Head injury. Neck injury. Rule out fracture, bleed. COMPARISON: 06/28/2021 TECHNIQUE: Contiguous axial imaging of the head was performed without the administration of IV contrast. Axial multidetector volumetric images were also performed through the cervical spine without intravenous contrast. Multiplanar reconstructed images in coronal and sagittal orientations were submitted. This CT examination was performed using dose optimization techniques as appropriate, variously including the following: *Automated exposure control *Adjustment of mA and/or kV according to patient size (this includes techniques or standardized protocols for targeted exams where dose is matched to indication/reason for exam; i.e. extremities or head) *Use of iterative reconstruction technique DOSE: 2699 mGy-cm FINDINGS: HEAD: There is no evidence of acute intracranial hemorrhage or territorial infarction. No abnormal mass-effect or midline shift. No extra-axial fluid collections. James to white matter differentiation is well preserved. Mild prominence of the ventricles and sulci is similar to prior. Normal parenchymal attenuation. 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 Calcific atherosclerosis is present within the cavernous segments of the internal carotid arteries. A subgaleal hematoma over the left posterior parietal calvarium measures 8 mm in thickness. There is a scalp contusion over the right posterior parietal region with subcutaneous edema. The sinuses and mastoid air cells are clear. CERVICAL SPINE: Vertebral body heights are normal. No fractures of the vertebral bodies or posterior elements. There is minimal anterolisthesis of C4 on C5 (2 mm) which is likely related to the facet arthropathy. No additional spondylolisthesis. Alignment is otherwise normal. Degenerative osteophytes and sclerosis are present at the atlantodental articulation, though normal alignment is maintained. Craniocervical junction is normal. Intervertebral disc heights are normal. No significant degenerative disc disease, most notably at C5-C6. Moderate multilevel facet arthropathy is most notable on the left at C2-C3 and C4-C5. Central canal and neural foramina appear patent without appreciable stenoses. No significant paravertebral soft tissue swelling. Atherosclerotic calcifications are present in the carotid arteries. There is a 5.6 cm (craniocaudal) hypoattenuating nodule at the right thyroid gland with associated calcifications. This was previously biopsied.. Imaged portions of the lung apices are clear. CT/CT cervical spine wo con IMPRESSION: 1. No acute intracranial pathology. Unchanged basilar tip aneurysm. Left parietal subgaleal hematoma and right parietal scalp contusion. No underlying calvarial fractures. 2. No acute fracture or malalignment in the cervical spine.
--- NOTE | 2021-06-28 13:26 | ED.ALCOHOL ---
HPI - Alcohol General Chief Complaint: General Medical Stated Complaint: DM NEUROPATHY,HIGH BS Time Seen by Provider: 06/28/21 13:20 Source: patient and EMS Mode of arrival: EMS Limitations: no limitations History of Present Illness MD complaint: alcohol intoxication Last drink: Just prior to admission Chronic alcohol use: Yes Previous visits for alcohol intoxication: Yes Recent trauma: Yes (tripped cause he can't walk and caught himself did not hit his head ) Associated symptoms: other (here because his neuropathy is worsening) Treatments prior to arrival: none Related Data Home Medications Medication Instructions Recorded Confirmed gabapentin 400 mg capsule 400 mg PO TID 02/27/21 06/28/21 insulin glargine 100 unit/mL (3 12 unit SUBCUT BEDTIME 02/27/21 06/28/21 mL) subcutaneous pen (Lantus Solostar U-100 Insulin) insulin lispro 100 unit/mL 10 unit SUBCUT TIDAC 04/01/21 06/28/21 subcutaneous pen (Humalog KwikPen (U-100) Insulin) Previous Rx's Medication Instructions Recorded nicotine 14 mg/24 hr daily 1 patch TRANSDERMAL Q24H #28 ea 05/12/21 transdermal patch blood sugar diagnostic (FreeStyle #100 ea 06/23/21 Lite Strips) Allergies Allergy/AdvReac Type Severity Reaction Status Date / Time No Known Drug Allergies Allergy Unknown Verified 03/24/21 00:43 Review of Systems Review of Systems: Constitutional : No Weight loss, No Fever, No Chills, No Fatigue, No Malaise ENT/Mouth : No sore throat, No Rhinorrhea Eyes: No Eye Pain, No Swelling, No Redness Cardiovascular : No Chest Pain, No SOB, No Dyspnea on Exertion, No Orthopnea, No Edema, No Palpitations Respiratory : No Cough, No Sputum, No Wheezing Gastrointestinal : No Nausea, No Vomiting, No Diarrhea, No Constipation, No abdominal Pain, No Hematochezia, No Melena Genitourinary : No Dysuria, No Urinary Frequency, No Hematuria, Musculoskeletal : No joint pain, pos Myalgias, No Joint Swelling Skin : No Skin Lesions, No rash Neuro : No Weakness, No Numbness, No Dizziness, No Headache Psych : No Anxiety/Panic, No Depression Heme/Lymph: No Bruising, No Bleeding,No Lymphadenopathy Endocrine : No Polyuria, No Polydipsia All other systems reviewed and are negative PMFSH Past Medical History Attestation statement: The following information was validated with the patient. Medical History Acidosis, lactic Acute dehydration Acute hyperglycemia Alcohol abuse Alcohol abuse Alcohol dependence with withdrawal Alcohol use disorder, severe, dependence Alcoholic gastritis Attention deficit disorder Degenerative disc disease, cervical Depression Diabetes mellitus Dyslipidemia Head injury History of substance abuse Hypomagnesemia Hypotestosteronism Osteoarthritis of right hand Pancreatic cyst Pancreatitis Prolonged QT interval Thrombocytopenia Vomiting Surgical History History of surgery Family History Family History Father Cancer Mother Cancer Diabetes Social History Social History Household Members: None Housing: Apartment Do you presently have visiting nurse or other home services: No Unable to assess alcohol history related to: Refusing to respond Alcohol intake: current Alcohol intake frequency: 3 or more drinks per day Alcohol type: hard liquor Patient Tobacco Use Status: Current everyday Tobacco user Tobacco use type: Cigarette Cigarette Packs Per Day: 2 Cigarettes Per Day: 40.0 Use of substances other than those prescribed or required for medical reasons: Yes Substance Use Type: Former Substance User Advance Directives: Yes Advance Directives on File: Yes Advance Directives Date on File: 03/05/21 service: No Current occupational status: unemployed and disabled Current occupation: Right Handed Physical Exam Vital Signs: Vital Signs: Last Vital Signs Temp 97.9 F 06/28/21 17:30 Pulse 80 06/28/21 18:00 Resp 17 06/28/21 18:00 BP 111/66 06/28/21 18:00 Pulse Ox 98 06/28/21 18:00 Body Mass Index 26.5 Appearance: Alert. Oriented X3. mild acute distress. ETOH odor, slurred speech Eyes: Pupils equal, round and reactive to light. Atraumatic ENT: Pharynx normal. Neck: Normal inspection. Neck supple. CVS: Normal heart rate and rhythm. Pulses normal. Respiratory: No respiratory distress. Breath sounds normal. Abdomen: Soft and nontender. Skin: Skin warm and dry. Normal skin color. Normal skin turgor. Extremities: No lower extremity edema. No calf ttp reports pain to both feet but good pulses noted Neuro: Oriented X 3. No motor deficit. No sensory deficit. Course Course Course Narrative: started on 2L of NS and insulin gtt - suspect DKA and component of AKA - VBG and acetone ordered tachycardia, lactic acidosis due to ETOH abuse / dehydration and not infection or severe sepsis will likely shut off gtt and recheck BMP after fluids insulin gtt off at 412pm lactic acid decreased, chronically elevated related to his ETOH abuse likely starvation ketosis pH normal doubt DKA signed out to Dr. Tuttle plan for PT/CM in AM pending normal BMP at 11pm tonight MDM - Alcohol MDM Narrative Medical decision making narrative: 61 yo male with hx of ETOH abuse, DM, lyte abnormalities here with c/o worsening neuropathy - at this time will need labs, lytes, IV repletions, IVF, suspect ETOH on board. The patient is also asking for placement. He has no signs of trauma, NV intact, no signs of infection. Lab Data Result diagrams: 06/28/21 13:36 06/28/21 17:19 Labs: Lab Results 06/28/21 06/28/21 06/28/21 Range/Units 13:35 13:36 13:36 WBC 6.5 (4.8-10.8) X10*3/uL RBC 3.94 L (4.60-5.80) X10*6/uL Hgb 12.1 L (14.0-18.0) g/dl Hct 34.1 L (42.0-52.0) % MCV 86.5 (80.0-98.0) fL MCH 30.7 (27.0-33.0) pg MCHC 35.5 (31.0-36.0) g/dl RDW 13.8 (11.0-16.0) % Plt Count 57 L (160-400) X10*3/uL MPV 9.5 (9.4-12.4) fL Immature Gran % (Auto) 0.5 H (0.0-0.4) % Neut % (Auto) 82.8 H (45-73) % Lymph % (Auto) 8.3 L (20-40) % [place] % (Auto) 8.1 (2-11) % Eos % (Auto) 0.0 (0-4) % Baso % (Auto) 0.3 (0-2) % Lymph # (Auto) 0.5 L (1.2-4.9) X10*3/uL [place] # (Auto) 0.5 (0.1-1.2) X10*3/uL Eos # (Auto) 0.0 (0.0-0.4) X10*3/uL Baso # (Auto) 0.0 (0.0-0.2) X10*3/uL Abs Immat Gran (auto) 0.03 (0.00-0.03) X10*3/uL Absolute Neuts (auto) 5.4 (2.0-8.3) x10*3/uL Absolute Nucleated RBC 0.000 (0.0-0.012) X10*3/uL Nucleated RBC % (auto) 0.0 (0.0-0.2) /100WBC VBG pH (7.32-7.43) VBG pCO2 mmHg VBG pO2 mmHg VBG HCO3 (22-26) mmol/L VBG O2 Saturation % VBG Base Excess mmol/L Sodium 129 L (135-145) mmol/L Potassium 3.5 (3.3-5.1) mmol/L Chloride 87 L (96-108) mmol/L Carbon Dioxide 13 L (22-29) mmol/L Anion Gap 33 H (12-20) BUN 9 (9-16) mg/dL Creatinine 0.99 (0.5-1.4) mg/dL Estim Creat Clear Calc 69.0 Estimated GFR > 60 POC Glucose (60-115) mg/dL Random Glucose 460 H* (60-115) mg/dL Lactic Acid (0.5-2.0) mmol/L Lactic Acid Fup @ 2Hr (0.5-2.0) mmol/L Calcium 8.4 (8.4-10.2) mg/dL Magnesium 1.3 L* (1.6-2.6) mg/dL Urine Opiates Screen (Not Detect) Urine Fentanyl Screen (Not Detect) Ur Barbiturates Screen (Not Detect) Ur Phencyclidine Scrn (Not Detect) Ur Amphetamines Screen (Not Detect) U Benzodiazepines Scrn (Not Detect) Urine Cocaine Screen (Not Detect) U Marijuana (THC) Screen (Not Detect) Ethyl Alcohol mg/dL Acetone, Qual (Negative) COVID-19 ([facility]LA) Negative (Negative) COVID-19 Clin Com See Note 06/28/21 06/28/21 06/28/21 Range/Units 13:36 14:24 14:24 WBC (4.8-10.8) X10*3/uL RBC (4.60-5.80) X10*6/uL Hgb (14.0-18.0) g/dl Hct (42.0-52.0) % MCV (80.0-98.0) fL MCH (27.0-33.0) pg MCHC (31.0-36.0) g/dl RDW (11.0-16.0) % Plt Count (160-400) X10*3/uL MPV (9.4-12.4) fL Immature Gran % (Auto) (0.0-0.4) % Neut % (Auto) (45-73) % Lymph % (Auto) (20-40) % [place] % (Auto) (2-11) % Eos % (Auto) (0-4) % Baso % (Auto) (0-2) % Lymph # (Auto) (1.2-4.9) X10*3/uL [place] # (Auto) (0.1-1.2) X10*3/uL Eos # (Auto) (0.0-0.4) X10*3/uL Baso # (Auto) (0.0-0.2) X10*3/uL Abs Immat Gran (auto) (0.00-0.03) X10*3/uL Absolute Neuts (auto) (2.0-8.3) x10*3/uL Absolute Nucleated RBC (0.0-0.012) X10*3/uL Nucleated RBC % (auto) (0.0-0.2) /100WBC VBG pH (7.32-7.43) VBG pCO2 mmHg VBG pO2 mmHg VBG HCO3 (22-26) mmol/L VBG O2 Saturation % VBG Base Excess mmol/L Sodium (135-145) mmol/L Potassium (3.3-5.1) mmol/L Chloride (96-108) mmol/L Carbon Dioxide (22-29) mmol/L Anion Gap (12-20) BUN (9-16) mg/dL Creatinine (0.5-1.4) mg/dL Estim Creat Clear Calc Estimated GFR POC Glucose (60-115) mg/dL Random Glucose (60-115) mg/dL Lactic Acid 6.4 H* (0.5-2.0) mmol/L Lactic Acid Fup @ 2Hr (0.5-2.0) mmol/L Calcium (8.4-10.2) mg/dL Magnesium (1.6-2.6) mg/dL Urine Opiates Screen (Not Detect) Urine Fentanyl Screen (Not Detect) Ur Barbiturates Screen (Not Detect) Ur Phencyclidine Scrn (Not Detect) Ur Amphetamines Screen (Not Detect) U Benzodiazepines Scrn (Not Detect) Urine Cocaine Screen (Not Detect) U Marijuana (THC) Screen (Not Detect) Ethyl Alcohol 49 mg/dL Acetone, Qual Small H (Negative) COVID-19 ([facility]LA) (Negative) COVID-19 Clin Com 06/28/21 06/28/21 06/28/21 Range/Units 14:24 14:27 14:30 WBC (4.8-10.8) X10*3/uL RBC (4.60-5.80) X10*6/uL Hgb (14.0-18.0) g/dl Hct (42.0-52.0) % MCV (80.0-98.0) fL MCH (27.0-33.0) pg MCHC (31.0-36.0) g/dl RDW (11.0-16.0) % Plt Count (160-400) X10*3/uL MPV (9.4-12.4) fL Immature Gran % (Auto) (0.0-0.4) % Neut % (Auto) (45-73) % Lymph % (Auto) (20-40) % [place] % (Auto) (2-11) % Eos % (Auto) (0-4) % Baso % (Auto) (0-2) % Lymph # (Auto) (1.2-4.9) X10*3/uL [place] # (Auto) (0.1-1.2) X10*3/uL Eos # (Auto) (0.0-0.4) X10*3/uL Baso # (Auto) (0.0-0.2) X10*3/uL Abs Immat Gran (auto) (0.00-0.03) X10*3/uL Absolute Neuts (auto) (2.0-8.3) x10*3/uL Absolute Nucleated RBC (0.0-0.012) X10*3/uL Nucleated RBC % (auto) (0.0-0.2) /100WBC VBG pH 7.36 (7.32-7.43) VBG pCO2 29 mmHg VBG pO2 83 mmHg VBG HCO3 17 L (22-26) mmol/L VBG O2 Saturation 95.0 % VBG Base Excess -6.7 mmol/L Sodium (135-145) mmol/L Potassium (3.3-5.1) mmol/L Chloride (96-108) mmol/L Carbon Dioxide (22-29) mmol/L Anion Gap (12-20) BUN (9-16) mg/dL Creatinine (0.5-1.4) mg/dL Estim Creat Clear Calc Estimated GFR POC Glucose 418 H* (60-115) mg/dL Random Glucose (60-115) mg/dL Lactic Acid (0.5-2.0) mmol/L Lactic Acid Fup @ 2Hr (0.5-2.0) mmol/L Calcium (8.4-10.2) mg/dL Magnesium (1.6-2.6) mg/dL Urine Opiates Screen Not Detected (Not Detect) Urine Fentanyl Screen Not Detected (Not Detect) Ur Barbiturates Screen Not Detected (Not Detect) Ur Phencyclidine Scrn Not Detected (Not Detect) Ur Amphetamines Screen Not Detected (Not Detect) U Benzodiazepines Scrn Not Detected (Not Detect) Urine Cocaine Screen Not Detected (Not Detect) U Marijuana (THC) Screen Not Detected (Not Detect) Ethyl Alcohol mg/dL Acetone, Qual (Negative) COVID-19 (K[facility]LA) (Negative) COVID-19 Clin Com 06/28/21 06/28/21 06/28/21 Range/Units 14:59 15:04 15:39 WBC (4.8-10.8) X10*3/uL RBC (4.60-5.80) X10*6/uL Hgb (14.0-18.0) g/dl Hct (42.0-52.0) % MCV (80.0-98.0) fL MCH (27.0-33.0) pg MCHC (31.0-36.0) g/dl RDW (11.0-16.0) % Plt Count (160-400) X10*3/uL MPV (9.4-12.4) fL Immature Gran % (Auto) (0.0-0.4) % Neut % (Auto) (45-73) % Lymph % (Auto) (20-40) % [place] % (Auto) (2-11) % Eos % (Auto) (0-4) % Baso % (Auto) (0-2) % Lymph # (Auto) (1.2-4.9) X10*3/uL [place] # (Auto) (0.1-1.2) X10*3/uL Eos # (Auto) (0.0-0.4) X10*3/uL Baso # (Auto) (0.0-0.2) X10*3/uL Abs Immat Gran (auto) (0.00-0.03) X10*3/uL Absolute Neuts (auto) (2.0-8.3) x10*3/uL Absolute Nucleated RBC (0.0-0.012) X10*3/uL Nucleated RBC % (auto) (0.0-0.2) /100WBC VBG pH (7.32-7.43) VBG pCO2 mmHg VBG pO2 mmHg VBG HCO3 (22-26) mmol/L VBG O2 Saturation % VBG Base Excess mmol/L Sodium (135-145) mmol/L Potassium (3.3-5.1) mmol/L Chloride (96-108) mmol/L Carbon Dioxide (22-29) mmol/L Anion Gap (12-20) BUN (9-16) mg/dL Creatinine (0.5-1.4) mg/dL Estim Creat Clear Calc Estimated GFR POC Glucose 398 H* 381 H* 293 H (60-115) mg/dL Random Glucose (60-115) mg/dL Lactic Acid (0.5-2.0) mmol/L Lactic Acid Fup @ 2Hr (0.5-2.0) mmol/L Calcium (8.4-10.2) mg/dL Magnesium (1.6-2.6) mg/dL Urine Opiates Screen (Not Detect) Urine Fentanyl Screen (Not Detect) Ur Barbiturates Screen (Not Detect) Ur Phencyclidine Scrn (Not Detect) Ur Amphetamines Screen (Not Detect) U Benzodiazepines Scrn (Not Detect) Urine Cocaine Screen (Not Detect) U Marijuana (THC) Screen (Not Detect) Ethyl Alcohol mg/dL Acetone, Qual (Negative) COVID-19 ([facility]LA) (Negative) COVID-19 Clin Com 06/28/21 06/28/21 06/28/21 Range/Units 16:09 17:19 17:19 WBC (4.8-10.8) X10*3/uL RBC (4.60-5.80) X10*6/uL Hgb (14.0-18.0) g/dl Hct (42.0-52.0) % MCV (80.0-98.0) fL MCH (27.0-33.0) pg MCHC (31.0-36.0) g/dl RDW (11.0-16.0) % Plt Count (160-400) X10*3/uL MPV (9.4-12.4) fL Immature Gran % (Auto) (0.0-0.4) % Neut % (Auto) (45-73) % Lymph % (Auto) (20-40) % [place] % (Auto) (2-11) % Eos % (Auto) (0-4) % Baso % (Auto) (0-2) % Lymph # (Auto) (1.2-4.9) X10*3/uL [place] # (Auto) (0.1-1.2) X10*3/uL Eos # (Auto) (0.0-0.4) X10*3/uL Baso # (Auto) (0.0-0.2) X10*3/uL Abs Immat Gran (auto) (0.00-0.03) X10*3/uL Absolute Neuts (auto) (2.0-8.3) x10*3/uL Absolute Nucleated RBC (0.0-0.012) X10*3/uL Nucleated RBC % (auto) (0.0-0.2) /100WBC VBG pH (7.32-7.43) VBG pCO2 mmHg VBG pO2 mmHg VBG HCO3 (22-26) mmol/L VBG O2 Saturation % VBG Base Excess mmol/L Sodium 132 L (135-145) mmol/L Potassium 3.4 (3.3-5.1) mmol/L Chloride 97 (96-108) mmol/L Carbon Dioxide 16 L (22-29) mmol/L Anion Gap 22 H (12-20) BUN 7 L (9-16) mg/dL Creatinine 0.83 (0.5-1.4) mg/dL Estim Creat Clear Calc 82.3 Estimated GFR > 60 POC Glucose 252 H (60-115) mg/dL Random Glucose 237 H D (60-115) mg/dL Lactic Acid (0.5-2.0) mmol/L Lactic Acid Fup @ 2Hr 2.8 H* (0.5-2.0) mmol/L Calcium 7.9 L (8.4-10.2) mg/dL Magnesium (1.6-2.6) mg/dL Urine Opiates Screen (Not Detect) Urine Fentanyl Screen (Not Detect) Ur Barbiturates Screen (Not Detect) Ur Phencyclidine Scrn (Not Detect) Ur Amphetamines Screen (Not Detect) U Benzodiazepines Scrn (Not Detect) Urine Cocaine Screen (Not Detect) U Marijuana (THC) Screen (Not Detect) Ethyl Alcohol mg/dL Acetone, Qual (Negative) COVID-19 (K[facility]LA) (Negative) COVID-19 Clin Com Critical Care Time Critical Care Time Critical Care Time: Yes Total Critical Care Time: 60 Attestation: 2.5L of IVF, insulin gtt, IV ativan, PO ativan, IV repletion of lytes I attest to this time spent taking care of the patient Discharge Plan Discharge Clinical Impression: Hypomagnesemia, Acute hyperglycemia, Acidosis, lactic, Alcohol abuse, Alcoholic ketoacidosis Prescriptions: No Action (DME) FreeStyle Lite Strips Strip See Rx Instructions .Route Qty: 100 RF: 6 Lantus Solostar U-100 Insulin 100 unit/mL (3 mL) insulin pen 12 unit subcut BEDTIME RF: 0 gabapentin 400 mg capsule 400 mg PO TID RF: 0 insulin lispro [Humalog KwikPen Insulin] 100 unit/mL Insulin Pen 10 unit SUBCUT TIDAC RF: 0 nicotine 14 mg/24 hr patch 24 hour 1 patch transdermal Q24H Qty: 28 RF: 0
[2021-06-28 13:43] LABS: MANUAL DIFF FLAG NO
[2021-06-28] MEDS: Magnesium Sulfate/H2O 2 GM/50 ML PIGGYBACK IV (13:43)
[2021-06-28 13:44] LABS: Basophils Percent Auto 0.3 % (0-2); Hematocrit 34.1 % (42.0-52.0); Hemoglobin 12.1 g/dl (14.0-18.0); Imm Gran Abs Auto 0.03 X10*3/uL (0.00-0.03); Imm Gran Pct Auto 0.5 % (0.0-0.4); Lymphocytes Absolute Auto 0.5 X10*3/uL (1.2-4.9); Lymphocytes Percent Auto 8.3 % (20-40); Mean Corpuscular HGB Conc 35.5 g/dl (31.0-36.0); Mean Corpuscular Hemoglobin 30.7 pg (27.0-33.0); Mean Corpuscular Volume 86.5 fL (80.0-98.0); Mean Platelet Volume 9.5 fL (9.4-12.4); Monocytes Absolute Auto 0.5 X10*3/uL (0.1-1.2); Monocytes Percent Auto 8.1 % (2-11); Neutrophils Absolute Auto 5.4 x10*3/uL (2.0-8.3); Neutrophils Percent Auto 82.8 % (45-73); Red Blood Count 3.94 X10*6/uL (4.60-5.80); Red Cell Distribution Width 13.8 % (11.0-16.0); White Blood Count 6.5 X10*3/uL (4.8-10.8)
[2021-06-28 13:49] LABS: Platelet Count 57 X10*3/uL (160-400)
--- NOTE | 2021-06-28 13:57 | MHC.CM.ED ---
i spoke c patient, he is interested in going to [facility], he has gone there in the past. if he medically clears in the e.d. and pending a PT eval, this may be the dc plan. he reports that he cannot walk, has his own apt and he recieved his vaccines in november of 2020. at this time we are waiting for a PT eval and medical clearance. a ref. to [facility] has been made. cm to cont. to follow.
[2021-06-28 13:58] LABS: Ethanol 49 mg/dL
[2021-06-28 14:04] LABS: Anion Gap 33 (12-20); Blood Urea Nitrogen 9 mg/dL (9-16); Calcium 8.4 mg/dL (8.4-10.2); Carbon Dioxide 13 mmol/L (22-29); Chloride 87 mmol/L (96-108); Estimated Glomerular Filt Rate > 60; Glucose Random 460 mg/dL (60-115); Magnesium 1.3 mg/dL (1.6-2.6); Potassium 3.5 mmol/L (3.3-5.1); Sodium 129 mmol/L (135-145)
[2021-06-28 14:06] LABS: COVID-19 Test Negative (Negative); IDNOW Serial# 9DD0AD1C
--- NOTE | 2021-06-28 14:11 | MHC.CM.ED ---
i spoke c patient, [facility], he has gone there in the past. if he medically clears in the e.d. and pending a PT eval, this may be the dc plan. he reports that he cannot walk, has his own apt and he recieved his vaccines in november of 2020. at this time we are waiting for a PT eval and medical clearance. a ref. to [facility] has been made. cm to cont. to follow. bhavin.adrian. and r.n. in the e.d. are aware of this working dc plan.
--- NOTE | 2021-06-28 14:22 | PHA.MEDREC ---
Pharmacy Consult ? Medication Reconciliation Pharmacy has completed the medication reconciliation. Patient's fill history does not reflect the medications he states he takes. Meds have not been filled for a few months now. Thanks Roberto Crump Pharm D
[2021-06-28] MEDS: ondansetron HCL 4 MG/2 ML VIAL IVPUSH (14:30)
[2021-06-28] MEDS: 0.9 % Sodium Chloride 1,000 ML 999 ML IVCONT ×2 (14:31→15:14)
[2021-06-28 14:32] LABS: Venous Blood Gas Refer to POC result
[2021-06-28] MEDS: Insulin Regular/NS 100 UNIT/100 ML PLAST..BAG IVCONT (14:33)
[2021-06-28 14:34] LABS: Glucose, Whole Blood 418 mg/dL (60-115)
[2021-06-28 14:34] LABS: VBG Base Excess -6.7 mmol/L; VBG HCO3 17 mmol/L (22-26); VBG pCO2 29 mmHg; VBG pH 7.36 (7.32-7.43); VBG pO2 83 mmHg
[2021-06-28] MEDS: Folic Acid 1 MG in 0.9 % Sodium Chloride 50 ML 100.4 MG IV (14:35)
[2021-06-28 14:48] LABS: Acetone, serum QL Small (Negative)
[2021-06-28 14:51] LABS: Amphetamine Screen Urine Not Detected (Not Detect); Barbiturates, Urine Not Detected (Not Detect); Benzodiazepines Screen Urine Not Detected (Not Detect); Cannabinoid Screen Urine Not Detected (Not Detect); Cocaine Screen Urine Not Detected (Not Detect); Fentanyl, urine Not Detected (Not Detect); Opiate Screen Urine Not Detected (Not Detect); Phencyclidine Screen Urine Not Detected (Not Detect)
[2021-06-28] MEDS: Potassium Chloride/H20 10 MEQ/100 ML PIGGYBACK 100 MEQ IV (14:52)
--- NOTE | 2021-06-28 14:53 | PC.NURSE ---
ivs inserted, labs drawn, urine obtained, covid swab performed, pt medicated per order, pharmacy consulted for ivf compatibility, cardiac monitor technician nsr 70s-80s, will continue to monitor.
[2021-06-28 14:57] LABS: Lactic Acid 6.4 mmol/L (0.5-2.0)
[2021-06-28 15:03] LABS: Glucose, Whole Blood 398 mg/dL (60-115)
[2021-06-28 15:10] LABS: Glucose, Whole Blood 381 mg/dL (60-115)
[2021-06-28] MEDS: Metoclopramide HCl 10 MG/2 ML VIAL 5 MG IVPUSH (15:14)
[2021-06-28] MEDS: LORazepam 2 MG/ML VIAL 1 MG IVPUSH (15:14)
[2021-06-28] MEDS: Thiamine HCL 100 MG in 0.9 % Sodium Chloride 100 ML 202 MG IV (15:15)
[2021-06-28] MEDS: 0.9 % Sodium Chloride 500 ML IV (15:16)
--- NOTE | 2021-06-28 15:27 | PC.NURSE ---
patient alert to person/place, monitoring engineer nsr 80s, vitals stable, iv medications given per order, poc q30 min, will continue to monitor.
[2021-06-28 15:43] LABS: Glucose, Whole Blood 293 mg/dL (60-115)
--- NOTE | 2021-06-28 16:10 | PC.NURSE ---
insulin drip stopped per provider
[2021-06-28 16:14] LABS: Glucose, Whole Blood 252 mg/dL (60-115)
[2021-06-28 16:29] LABS: Reflex Lactate? Lactic Acid Added
[2021-06-28] MEDS: Nicotine 21 MG PATCH.TD24 TRANSDERMA (16:39)
--- NOTE | 2021-06-28 18:06 | PC.NURSE ---
patient sleeping, wakes to verbal stimulus, labs previously drawn, stone hand nsr 80s, vss, will continue to monitor.
[2021-06-28 18:07] LABS: Anion Gap 22 (12-20); Blood Urea Nitrogen 7 mg/dL (9-16); Calcium 7.9 mg/dL (8.4-10.2); Carbon Dioxide 16 mmol/L (22-29); Chloride 97 mmol/L (96-108); Creatinine Clr Calc Pharmacy 82.3; Estimated Glomerular Filt Rate > 60; Glucose Random 237 mg/dL (60-115); Potassium 3.4 mmol/L (3.3-5.1); Sodium 132 mmol/L (135-145); ~Lactic Acid-LAB USE ONLY 2.8 mmol/L (0.5-2.0)
[2021-06-28 19:25] LABS: Reflex Lactate? 2 Y
[2021-06-28] MEDS: 0.9 % Sodium Chloride 1,000 ML 100 ML IVCONT (19:29)
--- NOTE | 2021-06-28 19:44 | PC.NURSE ---
patient given sandwich and gingerale per request, okd by provider
--- NOTE | 2021-06-28 21:23 | PC.NURSE ---
pt incontinent of large amount of stool
[2021-06-28 21:42] LABS: ~Lactic Acid-LAB USE ONLY 1.6 mmol/L (0.5-2.0)
[2021-06-28] MEDS: LORazepam 1 MG TABLET 2 MG PO (22:04)
--- NOTE | 2021-06-28 22:09 | PC.NURSE ---
Notified Dr. Rendon of a ciwa scale of 5.
[2021-06-28 23:27] LABS: Anion Gap 20 (12-20); Blood Urea Nitrogen 7 mg/dL (9-16); Calcium 7.6 mg/dL (8.4-10.2); Carbon Dioxide 19 mmol/L (22-29); Chloride 97 mmol/L (96-108); Creatinine Clr Calc Pharmacy 75.9; Estimated Glomerular Filt Rate > 60; Glucose Random 382 mg/dL (60-115); Potassium 3.5 mmol/L (3.3-5.1); Sodium 132 mmol/L (135-145)
[2021-06-29] VITALS (12 sets, daily range): BP systolic 102–141; BP diastolic 65–95; PULSE 76–93; RESP 16–20; TEMP 36.6–36.8; O2SAT 95–100
--- NOTE | 2021-06-29 01:08 | PC.NURSE ---
pt is a&o, able to move all extremities.
[2021-06-29] MEDS: LORazepam 1 MG TABLET 2 MG PO ×3 (01:18→22:40)
--- NOTE | 2021-06-29 01:20 | PC.NURSE ---
pt back from ct scan. pt a&o, no sob or chest pain. pt reports he forgot to ring, he was trying to go to the bathroom and fell. pt denies dizziness or lightheadedness. No double vision or hallucinations.
--- NOTE | 2021-06-29 01:23 | PC.NURSE ---
visual camera in place, curtain open. pt is close to the nursing station. Will continue to monitor.
--- NOTE | 2021-06-29 01:40 | PC.NURSE ---
Addendum entered by Claritza Garcia 06/29/21 04:06: Initial note documented by Rupal TORRES, under Claritza TORRES by mistake. Original Note: provider aware of CIWA score okay to give Ativan dose.
--- NOTE | 2021-06-29 01:47 | PC.NURSE ---
Charge nurse witness pt fall out off bed face forward. provider assessing patient, ct scan ordered. pt placed in c-spine precautions.
--- NOTE | 2021-06-29 02:00 | PC.NURSE ---
Commercial Marketing Specialist made aware of fall, incident report filed and post fall huddle done w/staff & nursing stranding supervisor.
--- NOTE | 2021-06-29 03:01 | PC.NURSE ---
pt change into hospital bed. Complete bed change, assist you with urinal. linda care completed. pt educated school vocational educator tristan. Will continue to monitor.
--- NOTE | 2021-06-29 05:21 | PC.NURSE ---
pt is sleeping at this time, no sign of agitations.
--- NOTE | 2021-06-29 05:22 | PC.NURSE ---
pt was looking for cane, no cane note in room during my shift. pt reports he had it in the ambulance.
[2021-06-29] MEDS: 0.9 % Sodium Chloride 1,000 ML 100 ML IVCONT (05:28)
[2021-06-29 08:13] LABS: Glucose, Whole Blood 379 mg/dL (60-115)
[2021-06-29] MEDS: Insulin Lispro 100 UNIT/ML 3 ML VIAL 10 UNIT SUBCUT (10:08)
[2021-06-29] MEDS: Gabapentin 400 MG CAPSULE PO ×3 (11:42→20:56)
[2021-06-29 12:08] LABS: Glucose, Whole Blood 318 mg/dL (60-115)
[2021-06-29] MEDS: Insulin Lispro 100 UNIT/ML 3 ML VIAL SUBCUT ×3 (13:40→21:11)
[2021-06-29 13:49] LABS: Glucose, Whole Blood 248 mg/dL (60-115)
--- NOTE | 2021-06-29 15:35 | PC.NURSE ---
care resume ,patient bedding was change ,patient was given a bed bath .
[2021-06-29 16:36] LABS: Glucose, Whole Blood 205 mg/dL (60-115)
--- NOTE | 2021-06-29 17:15 | PC.NURSE ---
poc 205, 4 units insulin coverage given as documented. pt denies headache/dizziness/sob. pt alert and oriented, vss.
--- NOTE | 2021-06-29 18:51 | PC.NURSE ---
patient ate 100 % of meal .
--- NOTE | 2021-06-29 19:55 | PC.NURSE ---
RN assumed care at 1900. Pt alert and oriented x4, calm and cooperative. Pt states 4/10 headache. Pt states I'm feeling anxious when can I get my meds . Pt educated on next medication pass and he stated an understanding to wait for meds. Pt resting in hospital without issues, vitals remain stable. Will continue to monitor.
[2021-06-29 21:01] LABS: Glucose, Whole Blood 354 mg/dL (60-115)
[2021-06-29] MEDS: Insulin Glargine,Hum.rec.anlog 100 UNIT/ML 10 ML VIAL 12 UNIT SUBCUT (21:02)
[2021-06-30 02:16] LABS: Glucose, Whole Blood 326 mg/dL (60-115)
[2021-06-30 04:35] VITALS: BP 108/70; PULSE 88; RESP 18; O2SAT 96
--- NOTE | 2021-06-30 06:31 | PC.NURSE ---
Pt alert and oriented x4, calm and cooperative. Pt denies pain. Pt OOB to use urinal with stand by assist. Pt ate food and tolerated well, denies N/V. Pt resting in stretcher at this time. Will continue to monitor.
[2021-06-30 07:59] LABS: Glucose, Whole Blood 356 mg/dL (60-115)
[2021-06-30] MEDS: Insulin Lispro 100 UNIT/ML 3 ML VIAL SUBCUT ×2 (08:15→22:50)
[2021-06-30] MEDS: Gabapentin 400 MG CAPSULE PO ×3 (08:27→20:55)
[2021-06-30 08:28] VITALS: BP 111/85; PULSE 76; RESP 16; O2SAT 97
--- NOTE | 2021-06-30 09:10 | MHC.CM.ED ---
Patient remains in ER. PT eval is pending. Clinical updates sent to [facility]. Continue to monitor for d/c needs.
--- NOTE | 2021-06-30 10:28 | MHC.CM.ED ---
[facility] is able to offer a bed and is in the process of obtaining ins auth. Will need PASRR Level 2 due to ETOH abuse. PASRR level 1 submitted to [facility] be T/W. Continue to monitor for d/c needs.
[2021-06-30] MEDS: Nicotine 14 MG PATCH.TD24 TRANSDERMA (10:38)
[2021-06-30] MEDS: LORazepam 1 MG TABLET 2 MG PO ×2 (10:43→20:59)
[2021-06-30 10:45] VITALS: BP 103/67; PULSE 83; RESP 14; TEMP 36.4; O2SAT 99
[2021-06-30 10:51] LABS: Glucose, Whole Blood 185 mg/dL (60-115)
--- NOTE | 2021-06-30 10:51 | MHC.RECOVSUP ---
Recovery Support note: Patient is a 61 year old Maldivian speaking male who presented to [facility] due to neuropathy, nausea, a recent fall and alcohol use. This show card writer met with patient to discuss substance use and mental health. Patient reports he plans to stop drinking and acknowledges that his alcohol consumption has been detrimental to his health and has been the source of problems in his life. Patient reports I'm real close to quitting. Patient reports drinking up to twenty nips a day some days. Patient denies SI and HI at this time. Patient reports anxiety however states it improves with medication. Discussed case with patient's CM.
[2021-06-30 12:12] LABS: Anion Gap 11 (12-20); Blood Urea Nitrogen 9 mg/dL (9-16); Calcium 9.4 mg/dL (8.4-10.2); Carbon Dioxide 28 mmol/L (22-29); Chloride 101 mmol/L (96-108); Creatinine Clr Calc Pharmacy 87.6; Estimated Glomerular Filt Rate > 60; Glucose Random 192 mg/dL (60-115); Sodium 137 mmol/L (135-145)
[2021-06-30 13:11] VITALS: BP 103/67; PULSE 83; O2SAT 99
[2021-06-30 15:27] LABS: Glucose, Whole Blood 294 mg/dL (60-115)
[2021-06-30] MEDS: Magnesium Oxide 400 MG TABLET 800 MG PO (16:44)
[2021-06-30] MEDS: Potassium Chloride Packet 20 MEQ PACKET 40 MEQ PO (16:45)
[2021-06-30 20:56] VITALS: BP 141/86; PULSE 68; RESP 15; O2SAT 99
[2021-06-30] MEDS: Insulin Glargine,Hum.rec.anlog 100 UNIT/ML 10 ML VIAL 12 UNIT SUBCUT (20:56)
[2021-06-30 21:00] LABS: Glucose, Whole Blood 458 mg/dL (60-115)
[2021-06-30 22:44] LABS: Glucose, Whole Blood 412 mg/dL (60-115)
[2021-07-01 06:01] VITALS: BP 100/75; PULSE 65; RESP 17; O2SAT 95
--- NOTE | 2021-07-01 08:41 | MHC.CM.ED ---
Patient remains in ER. [facility] exemption letter obtained. [facility] is still waiting for insurance auth. Continue to monitor for d/c needs.
[2021-07-01 09:56] LABS: Glucose, Whole Blood 297 mg/dL (60-115)
[2021-07-01] MEDS: Gabapentin 400 MG CAPSULE PO ×2 (10:17→14:14)
[2021-07-01] MEDS: Magnesium Oxide 400 MG TABLET 800 MG PO (10:17)
[2021-07-01] MEDS: Nicotine 14 MG PATCH.TD24 TRANSDERMA (10:18)
[2021-07-01 10:56] VITALS: BP 98/70; PULSE 76; RESP 18; O2SAT 96
[2021-07-01] MEDS: LORazepam 1 MG TABLET 2 MG PO ×2 (10:58→15:59)
[2021-07-01 13:17] LABS: Glucose, Whole Blood 320 mg/dL (60-115)
--- NOTE | 2021-07-01 13:25 | MHC.CM.ED ---
Insurance auth has been obtained by [facility]. Patient can leave at 330pm. [facility] booked. Med nec with chart. Patient, Flaca TORRES and Chiara DIAZ aware. Continue to monitor for d/c needs.
[2021-07-01] MEDS: Insulin Lispro 100 UNIT/ML 3 ML VIAL SUBCUT (14:14)
[2021-07-01 17:24] LABS: Glucose, Whole Blood 370 mg/dL (60-115)
== END 2021-07-01 17:56 | disposition skilled nursing facility (03) ==
PROVIDERS: Emergency Medicine; Physician Assistant; Emergency Provider Internal Medicine; PCP Internal Medicine
DX: E11.40 Type 2 diabetes mellitus with diabetic neuropathy, unspecified (principal); E11.10 Type 2 diabetes mellitus with ketoacidosis without coma; E83.42 Hypomagnesemia; R11.0 Nausea; F41.9 Anxiety disorder, unspecified; R51.9 Headache, unspecified; F10.10 Alcohol abuse, uncomplicated; Y90.2 Blood alcohol level of 40-59 mg/100 ml; F17.210 Nicotine dependence, cigarettes, uncomplicated; Z20.822 Contact with and (suspected) exposure to COVID-19; Z79.899 Other long term (current) drug therapy; Z79.4 Long term (current) use of insulin; Z71.6 Tobacco abuse counseling
CPT/HCPCS: 36415; 70450; 72125; 80048; 80307; 82009; 82077; 82803; 82947; 83605; 83735; 85025; 87635; 96365; 96367; 96375; 97162; 99285; 99291; J2060; J2405; J2765; J3411; J3475

== ENCOUNTER 2021-07-06 22:28 | Emergency (ER) | payer OTHER, SELFPAY ==
[2021-07-06 22:40] VITALS: BP 116/74; BP 127/68; PULSE 108; PULSE 97; RESP 18; TEMP 37.2; O2SAT 98; BMI 23.3
--- NOTE | 2021-07-06 22:40 | ECG_ITS ---
Test Reason : HYPERGLYCEMIC? Blood Pressure : / mmHG Vent. Rate : 095 BPM Atrial Rate : 095 BPM P-R Int : 172 ms QRS Dur : 072 ms QT Int : 344 ms P-R-T Axes : 010 006 027 degrees QTc Int : 432 ms Normal sinus rhythm RSR' or QR pattern in V1 suggests right ventricular conduction delay Otherwise normal ECG When compared with ECG of 24-JUN-2021 06:40, No significant change was found Referred By: Maggie Khoury Electronically Signed By:GIANNA SOUZA MD
--- NOTE | 2021-07-06 22:43 | ED.GENADULT ---
HPI - General Adult General Chief complaint: General Medical Stated complaint: rt arm pain Time Seen by Provider: 07/06/21 22:33 Source: patient Mode of arrival: EMS History of Present Illness HPI narrative: 61-year-old male brought in via EMS from [facility] with complaints of redness/pain/swelling at the right AC where patient had an IV during his last admission. He denies any associated fever, chills, shortness of breath, palpitations and EMS states that EN route they noted that patient had a point of care glucose greater than 500. Related Data Home Medications Medication Instructions Recorded Confirmed gabapentin 400 mg capsule 400 mg PO TID 02/27/21 06/28/21 insulin glargine 100 unit/mL (3 12 unit SUBCUT BEDTIME 02/27/21 06/28/21 mL) subcutaneous pen (Lantus Solostar U-100 Insulin) insulin lispro 100 unit/mL 10 unit SUBCUT TIDAC 04/01/21 06/28/21 subcutaneous pen (Humalog KwikPen (U-100) Insulin) Previous Rx's Medication Instructions Recorded nicotine 14 mg/24 hr daily 1 patch TRANSDERMAL Q24H #28 ea 05/12/21 transdermal patch blood sugar diagnostic (FreeStyle #100 ea 06/23/21 Lite Strips) lorazepam 2 mg tablet 2 mg PO TID PRN #9 tab 07/01/21 Allergies Allergy/AdvReac Type Severity Reaction Status Date / Time No Known Drug Allergies Allergy Unknown Verified 03/24/21 00:43 Review of Systems Review of Systems: Pertinent positives and negatives as stated in HPI 10 point review of systems is otherwise negative. [facility] Past Medical History Source: nursing notes reviewed Medical History Acidosis, lactic Acute dehydration Acute hyperglycemia Alcohol abuse Alcohol abuse Alcohol dependence with withdrawal Alcohol use disorder, severe, dependence Alcoholic gastritis Attention deficit disorder Degenerative disc disease, cervical Depression Diabetes mellitus Dyslipidemia Head injury History of substance abuse Hypomagnesemia Hypotestosteronism Osteoarthritis of right hand Pancreatic cyst Pancreatitis Prolonged QT interval Thrombocytopenia Vomiting Surgical History History of surgery Family History Family History Father Cancer Mother Cancer Diabetes Social History Social History Household Members: None Housing: Apartment Do you presently have visiting nurse or other home services: No Unable to assess alcohol history related to: Refusing to respond Alcohol intake: current Alcohol intake frequency: 3 or more drinks per day Alcohol type: hard liquor Patient Tobacco Use Status: Current everyday Tobacco user Tobacco use type: Cigarette Cigarette Packs Per Day: 2 Cigarettes Per Day: 40.0 Substance Use Type: Former Substance User Advance Directives: Yes Advance Directives on File: Yes Advance Directives Date on File: 03/05/21 service: No Current occupational status: unemployed and disabled Current occupation: Right Handed Physical Exam Vital Signs: Vital Signs: Last Vital Signs Temp 98.9 F 07/06/21 22:40 Pulse 85 07/07/21 00:44 Resp 18 07/07/21 00:44 BP 108/66 07/07/21 00:44 Pulse Ox 99 07/07/21 00:44 Body Mass Index 23.3 VITAL SIGNS: Reviewed. GENERAL: Appears older than stated age, chronically ill, in no acute distress. HEAD: Normocephalic/atraumatic EYES: PERRLA, EOMI EARS: Ext canals without abnormality NOSE: Nares patent bilateral OROPHARYNX: no oral lesions noted, posterior pharynx clear NECK: Supple, no adenopathy LUNGS: Normal breath sounds. No adventitious sounds or accessory muscle use. SpO2<98> CARDIOVASCULAR: Regular rate and rhythm without noted murmurs, no JVD or lower extremity edema. ABDOMEN: Soft, non-tender, non-distended with bowel sounds. RIGHT UPPER EXTREMITY: There is a noted 3 cm indurated, nonfluctuant swelling at the right AC without noted erythema/swelling/induration above or below this site, palpable radial and ulnar pulses with good capillary refill SKIN: Inspection of the skin reveals no rashes NEUROLOGIC: Alert and oriented x 4. Strength and sensation to light touch were grossly intact x 4. Course Course Course Narrative: 61-year-old male with history and clinical presentation consistent with hyperglycemia and suspect that the site at the right AC is secondary to an IV infiltration, low clinical suspicion for right upper extremity DVT. Patient's hyperglycemia is noted and will insure that not associated with DKA or HHS although absence of associated symptoms makes this less likely. Review of all investigations negative for acute findings other than elevated D-dimer without evidence to suggest pulmonary involvement. Patient was treated with initial dose of 15 mg of Xarelto and will return to the long-term care facility with instructions to return in the morning by 8:00 a.m. for venous duplex of the right upper extremity. Otherwise, there is no evidence of DKA or HHS and patient's point of care glucose has gradually improved. Medical Decision Making Lab Data Result diagrams: 07/06/21 23:48 07/06/21 23:48 Labs: Lab Results 07/06/21 07/06/21 07/06/21 Range/Units 23:48 23:48 23:48 WBC 4.5 L (4.8-10.8) X10*3/uL RBC 3.63 L (4.60-5.80) X10*6/uL Hgb 11.0 L (14.0-18.0) g/dl Hct 33.0 L (42.0-52.0) % MCV 90.9 (80.0-98.0) fL MCH 30.3 (27.0-33.0) pg MCHC 33.3 (31.0-36.0) g/dl RDW 14.5 (11.0-16.0) % Plt Count 92 L D (160-400) X10*3/uL MPV 10.6 (9.4-12.4) fL Immature Gran % (Auto) 0.4 (0.0-0.4) % Neut % (Auto) 55.3 (45-73) % Lymph % (Auto) 29.1 (20-40) % [place] % (Auto) 13.2 H (2-11) % Eos % (Auto) 1.3 (0-4) % Baso % (Auto) 0.7 (0-2) % Lymph # (Auto) 1.3 (1.2-4.9) X10*3/uL [place] # (Auto) 0.6 (0.1-1.2) X10*3/uL Eos # (Auto) 0.1 (0.0-0.4) X10*3/uL Baso # (Auto) 0.0 (0.0-0.2) X10*3/uL Abs Immat Gran (auto) 0.02 (0.00-0.03) X10*3/uL Absolute Neuts (auto) 2.5 (2.0-8.3) x10*3/uL Absolute Nucleated RBC 0.000 (0.0-0.012) X10*3/uL Nucleated RBC % (auto) 0.0 (0.0-0.2) /100WBC Smear Tech's Comments VERIFIED D-Dimer 387 NG/ML Coag Specimen Comment DELAY Sodium 134 L (135-145) mmol/L Potassium 4.2 D (3.3-5.1) mmol/L Chloride 100 (96-108) mmol/L Carbon Dioxide 24 (22-29) mmol/L Anion Gap 14 (12-20) BUN 14 D (9-16) mg/dL Creatinine 1.08 (0.5-1.4) mg/dL Estim Creat Clear Calc 65.6 Estimated GFR > 60 Random Glucose 399 H* (60-115) mg/dL Calcium 9.1 (8.4-10.2) mg/dL Total Bilirubin 0.4 (0.0-1.0) mg/dL AST 33 D (5-37) U/L ALT 36 (0-40) U/L Alkaline Phosphatase 103 (39-117) U/L Total Protein 6.7 (6.5-8.0) g/dL Albumin 3.9 (3.5-5.0) g/dL Acetone, Qual Negative (Negative) ECG Data Attestation: I personally reviewed and interpreted this ECG as follows: Prior ECG tracings: available for review (06/24/2021 no acute changes on comparison) Interpretation: Normal sinus rhythm, HR-95, no STEMI, WV/QRS/QTC are within normal limits. Discharge Plan Discharge Clinical Impression: Hyperglycemia, Redness and swelling of upper arm Patient Disposition: Xfer SNF Instructions: Diabetic Hyperglycemia (ED) Additional Instructions: 1. You must return at 8:00 a.m. in the morning to undergo ultrasound of your vessels in the right arm. You have been given initial dose of anticoagulation. 2. Resume all home medications as prescribed. Return to the ER for acute worsening of symptoms. Prescriptions: No Action (DME) FreeStyle Lite Strips Strip See Rx Instructions .Route Qty: 100 RF: 6 Lantus Solostar U-100 Insulin 100 unit/mL (3 mL) insulin pen 12 unit subcut BEDTIME RF: 0 gabapentin 400 mg capsule 400 mg PO TID RF: 0 insulin lispro [Humalog KwikPen Insulin] 100 unit/mL Insulin Pen 10 unit SUBCUT TIDAC RF: 0 nicotine 14 mg/24 hr patch 24 hour 1 patch transdermal Q24H Qty: 28 RF: 0 lorazepam 2 mg tablet 2 mg PO TID PRN (Reason: alcohol withdrawal) Qty: 9 RF: 0
[2021-07-06 23:57] LABS: Basophils Percent Auto 0.7 % (0-2); Eosinophils Absolute Auto 0.1 X10*3/uL (0.0-0.4); Eosinophils Percent Auto 1.3 % (0-4); Imm Gran Abs Auto 0.02 X10*3/uL (0.00-0.03); Imm Gran Pct Auto 0.4 % (0.0-0.4); Lymphocytes Absolute Auto 1.3 X10*3/uL (1.2-4.9); Lymphocytes Percent Auto 29.1 % (20-40); Mean Corpuscular HGB Conc 33.3 g/dl (31.0-36.0); Mean Corpuscular Hemoglobin 30.3 pg (27.0-33.0); Mean Corpuscular Volume 90.9 fL (80.0-98.0); Mean Platelet Volume 10.6 fL (9.4-12.4); Monocytes Absolute Auto 0.6 X10*3/uL (0.1-1.2); Monocytes Percent Auto 13.2 % (2-11); Neutrophils Absolute Auto 2.5 x10*3/uL (2.0-8.3); Neutrophils Percent Auto 55.3 % (45-73); Red Blood Count 3.63 X10*6/uL (4.60-5.80); Red Cell Distribution Width 14.5 % (11.0-16.0); White Blood Count 4.5 X10*3/uL (4.8-10.8)
[2021-07-06 23:58] LABS: Platelet Count 92 X10*3/uL (160-400)
[2021-07-07 00:10] LABS: Acetone, serum QL Negative (Negative)
[2021-07-07 00:15] LABS: MANUAL DIFF FLAG SCAN; SLIDE REVIEW VERIFIED
[2021-07-07 00:17] LABS: Alanine Aminotransferase 36 U/L (0-40); Albumin Level 3.9 g/dL (3.5-5.0); Alkaline Phosphatase 103 U/L (39-117); Anion Gap 14 (12-20); Aspartate Amino Transferase 33 U/L (5-37); Bilirubin Total 0.4 mg/dL (0.0-1.0); Blood Urea Nitrogen 14 mg/dL (9-16); Calcium 9.1 mg/dL (8.4-10.2); Carbon Dioxide 24 mmol/L (22-29); Chloride 100 mmol/L (96-108); Creatinine Clr Calc Pharmacy 65.6; Estimated Glomerular Filt Rate > 60; Glucose Random 399 mg/dL (60-115); Potassium 4.2 mmol/L (3.3-5.1); Sodium 134 mmol/L (135-145); Total Protein 6.7 g/dL (6.5-8.0)
[2021-07-07 00:29] LABS: Delay - Coag DELAY
[2021-07-07 00:42] LABS: D Dimer 387 NG/ML
[2021-07-07 00:44] VITALS: BP 108/66; PULSE 85; RESP 18; O2SAT 99
[2021-07-07] MEDS: 0.9 % Sodium Chloride 1,000 ML 999 ML IV (01:00)
[2021-07-07 01:18] LABS: INTERNATIONAL NORM RATIO 1.1 (0.9-1.1); Prothrombin Time 12.1 SEC (9.9-13.0)
[2021-07-07 01:20] LABS: Partial Thromboplastin Time 36.9 SEC (24.1-38.0)
[2021-07-07] MEDS: Rivaroxaban 15 MG TABLET PO (02:33)
== END 2021-07-07 02:35 | disposition skilled nursing facility (03) ==
PROVIDERS: Emergency Provider Student in an Organized Health Care Education/Training Program
DX: M79.89 Other specified soft tissue disorders (principal); M79.601 Pain in right arm; E11.65 Type 2 diabetes mellitus with hyperglycemia
CPT/HCPCS: 36415; 80053; 82009; 85025; 85379; 85610; 85730; 93005; 96360; 99284

== ENCOUNTER 2021-08-25 08:21 | Outpatient (REF) | payer OTHER, SELFPAY ==
--- NOTE | ~2021-08-25 | MR_ITS ---
EXAMINATION: MRI SHOULDER WITHOUT CONTRAST, LEFT CLINICAL INFORMATION: Shoulder pain, decreased range of motion.. COMPARISON: None. TECHNIQUE: MRI of the shoulder without contrast is performed in a 1.5 Batool high-field scanner. FINDINGS: CORACOACROMIAL ARCH: Mild acromioclavicular arthritis. Trace fluid in the subacromial subdeltoid space. Undersurface of the acromion is concave. ROTATOR CUFF: Mild heterogeneous T2 signal in the supraspinatus and infraspinatus tendon suggesting mild tendinosis. No focal tear is seen. Teres minor is intact. Mild subscapularis tendinosis. ROTATOR CUFF MUSCLES: No muscle atrophy or fatty infiltration. BICEPS TENDON: Intact LABRUM/CAPSULE: Linear T2 bright signal at the base of the superior labrum, could represent a sublabral sulcus versus a tear. No focal tears otherwise seen. Inferior capsule is intact. GLENOHUMERAL JOINT/MARROW: No fracture. No suspicious marrow signal changes. MR/MR shoulder LT wo con IMPRESSION: 1. Mild supraspinatus, infraspinatus and subscapularis tendinosis. No rotator cuff tear is seen. 2. Signal changes of base of superior labrum could represent a sublabral sulcus versus a tear. 3. Mild acromioclavicular arthritis.
== END 2021-08-25 08:22 | disposition home or self-care (01) ==
LOC: HO.MRI 08:21
PROVIDERS: Visit Provider Nurse Practitioner Gerontology
DX: M25.512 Pain in left shoulder (principal)
CPT/HCPCS: 73221

== ENCOUNTER 2021-09-26 06:02 | Outpatient (REF) | payer OTHER, SELFPAY ==
--- NOTE | ~2021-09-26 | XR_ITS ---
EXAMINATION: XR SHOULDER, LEFT CLINICAL INFORMATION: Left shoulder pain. COMPARISON: Left shoulder MRI dated 08/25/2021. TECHNIQUE: AP external rotation, Grashey, scapular Y, and axillary views of the left shoulder. FINDINGS: Small acromioclavicular marginal osteophytes. Mild glenohumeral joint space narrowing with tiny marginal osteophytes. No fracture or dislocation. No osseous erosion. No abnormal soft tissue calcification. XR/XR shoulder LT min 2V IMPRESSION: Mild acromioclavicular and glenohumeral osteoarthritis.
== END 2021-09-26 06:03 | disposition home or self-care (01) ==
LOC: HO.HOSX 06:02
PROVIDERS: Visit Provider Physician Assistant
DX: M67.819 Other specified disorders of synovium and tendon, unspecified shoulder (principal); M25.512 Pain in left shoulder; E11.9 Type 2 diabetes mellitus without complications
CPT/HCPCS: 20610; 73030; 99202; J1020

== ENCOUNTER 2022-01-16 21:36 | Emergency (ER) | payer MEDICAID, SELFPAY ==
--- NOTE | ~2022-01-16 | CT_ITS ---
EXAMINATION: CT ABDOMEN AND PELVIS WITHOUT CONTRAST CLINICAL INFORMATION: Right-sided pain COMPARISON: 05/09/2021 TECHNIQUE: Multidetector volumetric imaging was performed from the superior aspect of the liver through the pubic symphysis. Sagittal and coronal reformatted images were obtained on the technologist's workstation. This CT examination was performed using dose optimization techniques as appropriate, variously including the following: *Automated exposure control *Adjustment of mA and/or kV according to patient size (this includes techniques or standardized protocols for targeted exams where dose is matched to indication/reason for exam; i.e. extremities or head) *Use of iterative reconstruction technique DLP: 411 mGy-cm FINDINGS: LUNG BASES: The visualized lung bases are unremarkable. LIVER, GALLBLADDER, AND BILIARY TREE: Hepatic contour appears slightly nodular. No intrahepatic biliary ductal dilatation. Cholelithiasis is noted. PANCREAS: Parenchyma is atrophic. Previously identified pseudocyst along the tail of the pancreas now demonstrates areas of internal hyperdensity which is a new finding since 05/09/2021. This measures approximately 6.9 x 6.3 cm in the axial plane currently, versus 5.5 x 5.0 cm on 05/09/2021. Mild surrounding stranding noted. SPLEEN: Enlarged, measuring approximately 14 cm in the axial plane. ADRENAL GLANDS: Unremarkable. KIDNEYS AND URETERS: The kidneys are normal in size, shape, and attenuation. Left lower pole renal cyst is again noted; no follow-up recommended. No hydronephrosis, hydroureter, or calculi seen. No perinephric stranding. BLADDER: Unremarkable. GASTROINTESTINAL TRACT: No evidence of bowel obstruction. No significant bowel wall thickening is seen. Small amount of free fluid is present in the abdomen and pelvis. No free air is seen. ABDOMINAL WALL: Fat-containing left inguinal hernia. LYMPH NODES: No lymphadenopathy is seen, though assessment is limited in the absence of intravenous contrast. VASCULAR: There is atherosclerotic calcification along the aorta and iliac arteries. PELVIC VISCERA: Unremarkable. OSSEOUS STRUCTURES: Degenerative changes are noted in the spine. CT/CT abdomen pelvis wo con IMPRESSION: 1. Previously identified pancreatic pseudocyst is now larger and demonstrates internal hyperattenuating components, raising concern for hemorrhage in the pseudocyst. Mild surrounding inflammatory change noted. 2. Small amount of free fluid in the abdomen and pelvis. 3. Cholelithiasis. 4. Mildly nodular hepatic contour. Mild splenomegaly. This was discussed with Dr. Khoury on 01/17/2022 12:19 AM.
--- NOTE | ~2022-01-16 | CT_ITS ---
EXAMINATION: CT ABDOMEN AND PELVIS WITH CONTRAST CLINICAL INFORMATION: Abdominal pain, increasing cyst in size, question hemorrhage COMPARISON: Noncontrast CT 01/16/2022 TECHNIQUE: Multidetector volumetric images were obtained from the superior aspect of the liver through the pubic symphysis following administration of 75 mL of Omnipaque 350 intravenous contrast. Sagittal and coronal reformatted images were obtained on the technologist's workstation. Oral contrast: No This CT examination was performed using dose optimization techniques as appropriate, variously including the following: *Automated exposure control *Adjustment of mA and/or kV according to patient size (this includes techniques or standardized protocols for targeted exams where dose is matched to indication/reason for exam; i.e. extremities or head) *Use of iterative reconstruction technique DLP: 429 mGy-cm FINDINGS: LUNG BASES: Mild dependent atelectasis. LIVER, GALLBLADDER, AND BILIARY TREE: The liver is normal in size, shape, and attenuation. No focal hepatic lesion or biliary ductal dilatation is present. Cholelithiasis is suspected. PANCREAS: Atrophic parenchyma with scattered calcifications consistent with chronic pancreatitis. Redemonstrated pseudocyst at the pancreatic tail measuring approximately 7.0 x 6.2 cm with regions of internal hyperattenuation along the left aspect. There is also subtle curvilinear hyperdensity within this region such as seen on axial images 28-30/95 and coronal images 33-34, raising concern for contrast extravasation into this cyst, and it is difficult to determine whether this is of venous arterial origin since both the aorta and splenic vein have similar densities on this exam. Mild surrounding inflammation noted. SPLEEN: Mildly enlarged. ADRENAL GLANDS: Unremarkable. KIDNEYS AND URETERS: No hydronephrosis or obstructing calculus bilaterally. Redemonstrated posterior left renal cyst; no follow-up recommended. BLADDER: Unremarkable. GASTROINTESTINAL TRACT: No evidence of bowel obstruction or significant wall thickening. Redemonstrated small amount of free fluid in the abdomen and pelvis. No free air is seen. ABDOMINAL WALL: Fat-containing left inguinal hernia. LYMPH NODES: Scattered mesenteric and retroperitoneal subcentimeter lymph nodes are present, without significant enlargement by size criteria. VASCULAR: There is atherosclerotic calcification along the aorta and iliac arteries. Varices are noted in the left abdomen. PELVIC VISCERA: Unremarkable. OSSEOUS STRUCTURES: Degenerative changes are noted in the spine. CT/CT abdomen pelvis w con IMPRESSION: 1. Redemonstrated pancreatic pseudocyst with hyperattenuating components. Along the left lateral aspect of the pseudocyst there is additional curvilinear hyperdensity concerning for contrast extravasation/active hemorrhage into the cyst, though it is difficult to determine whether this is of arterial or venous origin. 2. Redemonstrated small amount of free fluid in the abdomen and pelvis. This critical result was discussed with Dr. Khoury on 01/17/2022 2:28 AM, and it was ascertained that the content and urgency of the report was understood at the time of direct communication.
[2022-01-16 21:52] VITALS: BP 171/91; BP 192/99; PULSE 67; PULSE 76; RESP 20; TEMP 36.9; O2SAT 95; O2SAT 98; BMI 23.3
[2022-01-16] MEDS: 0.9 % Sodium Chloride 1,000 ML 999 ML IV ×2 (22:05→23:06)
[2022-01-16] MEDS: ondansetron HCL 4 MG/2 ML VIAL IVPUSH (22:09)
[2022-01-16] MEDS: fentaNYL citrate/PF 100 MCG/2 ML VIAL 25 MCG IVPUSH (22:09)
[2022-01-16 22:14] LABS: MANUAL DIFF FLAG NO
[2022-01-16 22:15] LABS: Basophils Percent Auto 0.4 % (0-2); Neutrophils Percent Auto 78.5 % (45-73); PLT CLUMP 1; SCAN SMEAR FLAG 1
[2022-01-16 22:17] LABS: Eosinophils Absolute Auto 0.1 X10*3/uL (0.0-0.4); Eosinophils Percent Auto 1.4 % (0-4); Hematocrit 38.7 % (42.0-52.0); Imm Gran Abs Auto 0.05 X10*3/uL (0.00-0.03); Imm Gran Pct Auto 0.5 % (0.0-0.4); Lymphocytes Absolute Auto 1.3 X10*3/uL (1.2-4.9); Lymphocytes Percent Auto 12.7 % (20-40); Mean Corpuscular HGB Conc 33.6 g/dl (31.0-36.0); Mean Corpuscular Hemoglobin 29.3 pg (27.0-33.0); Mean Corpuscular Volume 87.2 fL (80.0-98.0); Mean Platelet Volume 9.9 fL (9.4-12.4); Monocytes Absolute Auto 0.7 X10*3/uL (0.1-1.2); Monocytes Percent Auto 6.5 % (2-11); Red Blood Count 4.44 X10*6/uL (4.60-5.80); Red Cell Distribution Width 13.9 % (11.0-16.0)
[2022-01-16 22:25] LABS: Platelet Count 88 X10*3/uL (160-400); White Blood Count 10.2 X10*3/uL (4.8-10.8)
[2022-01-16 22:28] LABS: Ethanol < 10 mg/dL
[2022-01-16 22:29] LABS: Lactic Acid 1.1 mmol/L (0.5-2.0)
[2022-01-16 22:32] VITALS: BP 158/88; PULSE 68; RESP 15; TEMP 36.7; O2SAT 97
[2022-01-16 22:32] LABS: Alanine Aminotransferase 14 U/L (0-40); Albumin Level 4.2 g/dL (3.5-5.0); Alkaline Phosphatase 80 U/L (39-117); Anion Gap 16 (12-20); Aspartate Amino Transferase 17 U/L (5-37); Bilirubin Total 0.5 mg/dL (0.0-1.0); Blood Urea Nitrogen 15 mg/dL (9-16); Calcium 9.2 mg/dL (8.4-10.2); Carbon Dioxide 23 mmol/L (22-29); Chloride 106 mmol/L (96-108); Creatinine Clr Calc Pharmacy 73.8; Estimated Glomerular Filt Rate > 60; Glucose Random 207 mg/dL (60-115); Lipase 453 U/L (8-78); Potassium 3.7 mmol/L (3.3-5.1); Sodium 141 mmol/L (135-145); Total Protein 7.4 g/dL (6.5-8.0)
--- NOTE | 2022-01-16 22:37 | ED.ABDPAIN ---
HPI - Abdominal Pain General Chief Complaint: Abdominal Pain Stated Complaint: Abd pain Time Seen by Provider: 01/16/22 21:44 Source: patient Mode of arrival: EMS History of Present Illness HPI narrative: 61-year-old male with known history of alcoholism is brought in by EMS after he began having increased abdominal pain for 3 hours associated with nausea and vomiting as well as chills denies any diarrhea and states he has continued to pass flatus. He denies any recent alcohol use and states that it has been 4-5 months since his last alcohol use as he has been in the [place] [facility]. Related Data Home Medications Medication Instructions Recorded Confirmed gabapentin 400 mg capsule 400 mg PO TID 02/27/21 06/28/21 insulin glargine 100 unit/mL (3 12 unit SUBCUT BEDTIME 02/27/21 06/28/21 mL) subcutaneous pen (Lantus Solostar U-100 Insulin) insulin lispro 100 unit/mL 10 unit SUBCUT TIDAC 04/01/21 06/28/21 subcutaneous pen (Humalog KwikPen (U-100) Insulin) Previous Rx's Medication Instructions Recorded nicotine 14 mg/24 hr daily 1 patch TRANSDERMAL Q24H #28 ea 05/12/21 transdermal patch blood sugar diagnostic (FreeStyle #100 ea 06/23/21 Lite Strips) lorazepam 2 mg tablet 2 mg PO TID PRN #9 tab 07/01/21 Allergies Allergy/AdvReac Type Severity Reaction Status Date / Time No Known Drug Allergies Allergy Unknown Verified 03/24/21 00:43 Review of Systems Review of Systems Pertinent positives and negatives as stated in HPI 10 point review of systems is otherwise negative. [facility] Past Medical History Source: nursing notes reviewed Medical History Acidosis, lactic Acute dehydration Acute hyperglycemia Alcohol abuse Alcohol abuse Alcohol dependence with withdrawal Alcohol use disorder, severe, dependence Alcoholic gastritis Attention deficit disorder Degenerative disc disease, cervical Depression Diabetes mellitus Dyslipidemia Head injury History of substance abuse Hypomagnesemia Hypotestosteronism Osteoarthritis of right hand Pancreatic cyst Pancreatitis Prolonged QT interval Thrombocytopenia Vomiting Surgical History History of surgery Family History Family History Father Cancer Mother Cancer Diabetes Social History Social History Household Members: None Housing: Apartment Do you presently have visiting nurse or other home services: No Unable to assess alcohol history related to: Refusing to respond Alcohol intake: former Patient Tobacco Use Status: Current everyday Tobacco user Tobacco use type: Cigarette Cigarette Packs Per Day: 2 Cigarettes Per Day: 40.0 Use of substances other than those prescribed or required for medical reasons: No Substance Use Type: Former Substance User Advance Directives: Yes Advance Directives on File: Yes Advance Directives Date on File: 03/05/21 service: No Current occupational status: unemployed and disabled Current occupation: Right Handed Physical Exam ED Vital Signs: Vital Signs - 24 hr 01/16/22 21:52 01/16/22 22:32 01/16/22 23:01 Temperature 98.4 F 98.0 F Pulse Rate 67 68 71 Respiratory Rate 20 15 18 Blood Pressure 171/91 H 158/88 H 153/83 H Pulse Oximetry 95 97 99 01/17/22 00:00 01/17/22 02:02 Temperature Pulse Rate 69 71 Respiratory Rate 13 14 Blood Pressure 172/98 H 162/96 H Pulse Oximetry 97 98 BMI result Body Mass Index 23.3 VITAL SIGNS: Reviewed. GENERAL: Well developed, well nourished, in no acute distress. HEAD: Normocephalic/atraumatic EYES: PERRLA, EOMI EARS: Ext canals without abnormality OROPHARYNX: no oral lesions noted, posterior pharynx clear LUNGS: Normal breath sounds. No adventitious sounds or accessory muscle use. SpO2<95> CARDIOVASCULAR: Regular rate and rhythm without noted murmurs ABDOMEN: Soft, abdomen is diffuse tender without rebound, non-distended with bowel sounds. MUSCULOSKELETAL: No tenderness, deformities, or effusions noted on gross inspection. EXTREMITIES: No cyanosis, clubbing or edema. SKIN: Inspection of the skin reveals no rashes NEUROLOGIC: Alert and oriented x 4. Strength and sensation to light touch were grossly intact x 4. Course Course Course Narrative: 61-year-old male with history and clinical presentation suggestive of possible pancreatitis, diverticulitis, and less likely felt to be appendicitis or perforation. Patient received pain medications as well as IV fluids. Review of all investigations consistent with acute pancreatitis and on review of prior admissions and imaging he has been noted to have a thickened gallbladder wall but was clinically benign without change in LFTs at that time. At this time there is no leukocytosis and LFTs are within normal limits. CT scan demonstrates enlarged pseudocyst w/increase density suspicious for hemorrhage, and on rescanned with IV contrast consistent with hemorrhage into the pseudocyst. Dr. Og in Gastroenterology was updated, hospitalist was updated, [facility] declines transfer at this time, and patient will likely be transferred to [place]. Patient was informed of these plans and is agreeable. Reevaluation(s) Reevaluation #1: I discussed with Dr Og who recommends transfer to tertiary facility despite patient's current stability as there is increased risk for life threatening decompensation. Agrees with pursuing CT scan with IV contrast. Time: 00:45 Reevaluation #2: Jorge called and reports evidence to suggest active bleed into pseudocyst. Reevaluation #3: Ambulance companies in the area are declining to transfer the patient, stating insufficient staff. Contacted [facility] for assistance in transporting the patient. Time: 03:30 MDM - Abdominal Pain Lab Data Result diagrams: 01/17/22 02:38 01/16/22 22:02 Labs: Lab Results 01/16/22 01/16/22 01/16/22 Range/Units 22:02 22:02 22:02 WBC 10.2 (4.8-10.8) X10*3/uL RBC 4.44 L D (4.60-5.80) X10*6/uL Hgb 13.0 L (14.0-18.0) g/dl Hct 38.7 L (42.0-52.0) % MCV 87.2 (80.0-98.0) fL MCH 29.3 (27.0-33.0) pg MCHC 33.6 (31.0-36.0) g/dl RDW 13.9 (11.0-16.0) % Plt Count 88 L (160-400) X10*3/uL MPV 9.9 (9.4-12.4) fL Immature Gran % (Auto) 0.5 H (0.0-0.4) % Neut % (Auto) 78.5 H (45-73) % Lymph % (Auto) 12.7 L (20-40) % [place] % (Auto) 6.5 (2-11) % Eos % (Auto) 1.4 (0-4) % Baso % (Auto) 0.4 (0-2) % Lymph # (Auto) 1.3 (1.2-4.9) X10*3/uL [place] # (Auto) 0.7 (0.1-1.2) X10*3/uL Eos # (Auto) 0.1 (0.0-0.4) X10*3/uL Baso # (Auto) 0.0 (0.0-0.2) X10*3/uL Abs Immat Gran (auto) 0.05 H (0.00-0.03) X10*3/uL Absolute Neuts (auto) 8.0 (2.0-8.3) x10*3/uL Absolute Nucleated RBC 0.000 (0.0-0.012) X10*3/uL Nucleated RBC % (auto) 0.0 (0.0-0.2) /100WBC Smear Tech's Comments Sodium 141 (135-145) mmol/L Potassium 3.7 (3.3-5.1) mmol/L Chloride 106 (96-108) mmol/L Carbon Dioxide 23 (22-29) mmol/L Anion Gap 16 (12-20) BUN 15 (9-16) mg/dL Creatinine 0.96 (0.5-1.4) mg/dL Estim Creat Clear Calc 73.8 Estimated GFR > 60 Random Glucose 207 H D (60-115) mg/dL Lactic Acid 1.1 (0.5-2.0) mmol/L Calcium 9.2 (8.4-10.2) mg/dL Total Bilirubin 0.5 (0.0-1.0) mg/dL AST 17 D (5-37) U/L ALT 14 (0-40) U/L Alkaline Phosphatase 80 D (39-117) U/L Total Protein 7.4 (6.5-8.0) g/dL Albumin 4.2 (3.5-5.0) g/dL Lipase 453 H (8-78) U/L Ethyl Alcohol mg/dL COVID-19 ([facility]) (Negative) COVID-19 Clin Com 05/27/22 05/27/22 05/28/22 Range/Units 22:02 22:43 02:38 WBC 8.1 (4.8-10.8) X10*3/uL RBC 4.32 L (4.60-5.80) X10*6/uL Hgb 12.6 L (14.0-18.0) g/dl Hct 38.2 L (42.0-52.0) % MCV 88.4 (80.0-98.0) fL MCH 29.2 (27.0-33.0) pg MCHC 33.0 (31.0-36.0) g/dl RDW 13.9 (11.0-16.0) % Plt Count 68 L (160-400) X10*3/uL MPV 10.2 (9.4-12.4) fL Immature Gran % (Auto) 0.4 (0.0-0.4) % Neut % (Auto) 85.7 H (45-73) % Lymph % (Auto) 8.3 L (20-40) % [place] % (Auto) 5.3 (2-11) % Eos % (Auto) 0.2 (0-4) % Baso % (Auto) 0.1 (0-2) % Lymph # (Auto) 0.7 L (1.2-4.9) X10*3/uL [place] # (Auto) 0.4 (0.1-1.2) X10*3/uL Eos # (Auto) 0.0 (0.0-0.4) X10*3/uL Baso # (Auto) 0.0 (0.0-0.2) X10*3/uL Abs Immat Gran (auto) 0.03 (0.00-0.03) X10*3/uL Absolute Neuts (auto) 6.9 (2.0-8.3) x10*3/uL Absolute Nucleated RBC 0.000 (0.0-0.012) X10*3/uL Nucleated RBC % (auto) 0.0 (0.0-0.2) /100WBC Smear Tech's Comments VERIFIED Sodium (135-145) mmol/L Potassium (3.3-5.1) mmol/L Chloride (96-108) mmol/L Carbon Dioxide (22-29) mmol/L Anion Gap (12-20) BUN (9-16) mg/dL Creatinine (0.5-1.4) mg/dL Estim Creat Clear Calc Estimated GFR Random Glucose (60-115) mg/dL Lactic Acid (0.5-2.0) mmol/L Calcium (8.4-10.2) mg/dL Total Bilirubin (0.0-1.0) mg/dL AST (5-37) U/L ALT (0-40) U/L Alkaline Phosphatase (39-117) U/L Total Protein (6.5-8.0) g/dL Albumin (3.5-5.0) g/dL Lipase (8-78) U/L Ethyl Alcohol < 10 mg/dL COVID-19 ([facility]) Negative (Negative) COVID-19 Clin Com See Note Discharge Plan Discharge Clinical Impression: Acute pancreatitis, Diabetes mellitus, Pancreatic pseudocyst, Hemorrhage Patient Disposition: Xfer [facility] Transfer Details: Requires increased level of care, [facility] Prescriptions: No Action (DME) FreeStyle Lite Strips Strip See Rx Instructions .Route Qty: 100 6RF Rx Instructions: As directed- In Vitro to test blood sugars TID Lantus Solostar U-100 Insulin 100 unit/mL (3 mL) insulin pen 12 unit subcut BEDTIME 0RF gabapentin 400 mg capsule 400 mg PO TID 0RF insulin lispro [Humalog KwikPen Insulin] 100 unit/mL Insulin Pen 10 unit SUBCUT TIDAC 0RF nicotine 14 mg/24 hr patch 24 hour 1 patch transdermal Q24H Qty: 28 0RF lorazepam 2 mg tablet 2 mg PO TID PRN (Reason: alcohol withdrawal) Qty: 9 0RF
[2022-01-16 23:01] VITALS: BP 153/83; PULSE 71; RESP 18; O2SAT 99
[2022-01-16 23:03] LABS: COVID-19 Test Negative (Negative)
[2022-01-16] MEDS: HYDROmorphone HCl 0.5 MG/0.5 ML SYRINGE IVPUSH (23:06)
[2022-01-17] VITALS (9 sets, daily range): BP systolic 160–174; BP diastolic 96–100; PULSE 69–77; RESP 13–21; TEMP 36.6; O2SAT 94–98
[2022-01-17] MEDS: HYDROmorphone HCl 0.5 MG/0.5 ML SYRINGE IVPUSH ×2 (00:20→02:19)
[2022-01-17 02:46] LABS: Eosinophils Percent Auto 0.2 % (0-4); Hematocrit 38.2 % (42.0-52.0); Imm Gran Abs Auto 0.03 X10*3/uL (0.00-0.03); Imm Gran Pct Auto 0.4 % (0.0-0.4); Lymphocytes Percent Auto 8.3 % (20-40); MANUAL DIFF FLAG SCAN; PLT CLUMP 1; SCAN SMEAR FLAG 1
[2022-01-17 02:48] LABS: Basophils Percent Auto 0.1 % (0-2); Hemoglobin 12.6 g/dl (14.0-18.0); Lymphocytes Absolute Auto 0.7 X10*3/uL (1.2-4.9); Mean Corpuscular Hemoglobin 29.2 pg (27.0-33.0); Mean Corpuscular Volume 88.4 fL (80.0-98.0); Mean Platelet Volume 10.2 fL (9.4-12.4); Monocytes Absolute Auto 0.4 X10*3/uL (0.1-1.2); Monocytes Percent Auto 5.3 % (2-11); Neutrophils Absolute Auto 6.9 x10*3/uL (2.0-8.3); Neutrophils Percent Auto 85.7 % (45-73); Red Blood Count 4.32 X10*6/uL (4.60-5.80); Red Cell Distribution Width 13.9 % (11.0-16.0)
[2022-01-17 02:49] LABS: Platelet Count 68 X10*3/uL (160-400); White Blood Count 8.1 X10*3/uL (4.8-10.8)
[2022-01-17 02:50] LABS: SLIDE REVIEW VERIFIED
--- NOTE | 2022-01-17 03:55 | PC.NURSE ---
This US/[facility] called [facility] at 0325 for an ALS Emergent transfer deemed needed per . I was told by Anshu that she needed to call me back. I received a call back at 033 anshu stated unable to transfer due to [facility] staffing issue. spoke with Anshu and Anshu stated she would call her right back. At 336 [place] glazing department supervisor called from [facility] spoke to at length in regards to this transfer, and stated he can not transfer patient, and that he had reached out to other ambulances in the city and they were unable to transfer patient as well.[facility] without a back up plan in place.@[phone] asked this US to call [facility]() to inform them of this situation HH attempting to assist with transport as last resort if needed.[facility] unable to transport at this time. requesting [facility] if necessary and only option.
[2022-01-17] MEDS: HYDROmorphone HCl 1 MG/ML SYRINGE 0.75 MG IVPUSH (04:30)
--- NOTE | 2022-01-17 04:31 | PC.NURSE ---
This US/[employer] spoke with [facility] at 0415 per ,they were unable to transport by air,but able to transport by ambulance.business support associate time approximately 7am.
[2022-01-17] MEDS: ondansetron HCL 4 MG/2 ML VIAL IVPUSH (05:49)
[2022-01-17 06:18] LABS: Glucose, Whole Blood 260 mg/dL (60-115)
== END 2022-01-17 07:31 | disposition short-term general hospital (02) ==
PROVIDERS: Emergency Provider Student in an Organized Health Care Education/Training Program; PCP Internal Medicine
DX: K85.90 Acute pancreatitis without necrosis or infection, unspecified (principal); K86.3 Pseudocyst of pancreas; K86.89 Other specified diseases of pancreas; E13.9 Other specified diabetes mellitus without complications; Z20.822 Contact with and (suspected) exposure to COVID-19; F10.21 Alcohol dependence, in remission; F17.200 Nicotine dependence, unspecified, uncomplicated; Z79.4 Long term (current) use of insulin
CPT/HCPCS: 36415; 74176; 74177; 80053; 82077; 82947; 83605; 83690; 85025; 87040; 87635; 96360; 96361; 96374; 96375; 96376; 99285; J1170; J2405; J3010; Q9967

== ENCOUNTER 2022-03-01 15:41 | Emergency (ER) | payer MEDICAID, SELFPAY ==
[2022-03-01] VITALS (7 sets, daily range): BP systolic 89–96; BP diastolic 45–86; PULSE 84–125; RESP 12–19; TEMP 37.2; O2SAT 92–96; BMI 24.9
--- NOTE | ~2022-03-01 | CT_ITS ---
EXAMINATION: CT ABDOMEN AND PELVIS WITH CONTRAST CLINICAL INFORMATION: Abdominal pain COMPARISON: CT abdomen and pelvis 01/09/2022 TECHNIQUE: Multidetector volumetric images were obtained from the superior aspect of the liver through the pubic symphysis following administration 85 mL of Omnipaque 350 intravenous contrast. Sagittal and coronal reformatted images were obtained on the technologist's workstation. Oral contrast: No This CT examination was performed using dose optimization techniques as appropriate, variously including the following: *Automated exposure control *Adjustment of mA and/or kV according to patient size (this includes techniques or standardized protocols for targeted exams where dose is matched to indication/reason for exam; i.e. extremities or head) *Use of iterative reconstruction technique DLP: 464 mGy-cm FINDINGS: LUNG BASES: The heart size is normal. There are small pericardial effusion there is dependent bibasilar atelectasis. LIVER, GALLBLADDER, AND BILIARY TREE: The liver is normal in size, shape, and attenuation. No focal hepatic lesion or biliary ductal dilatation is present. There is perihepatic ascites The gallbladder is unremarkable with no evidence of radiopaque gallstones, gallbladder wall thickening, or obvious pericholecystic inflammatory changes. PANCREAS: The head and the body of the pancreas is atrophic with calcification of chronic pancreatitis. There is a large pseudocyst in the tail of the pancreas measuring 5.7 x 5.8 cm with punctate gas within likely from superinfection. This is a new finding.. There is a thick wall surrounding the pseudocyst with some combination of pancreatic tissue. SPLEEN: The spleen is unremarkable with perisplenic fluid. ADRENAL GLANDS: Unremarkable. KIDNEYS AND URETERS: The kidneys are normal in size, shape, and attenuation. No hydronephrosis, hydroureter, or calculi seen. No perinephric stranding. There is a small cyst lower pole left kidney, stable. BLADDER: Unremarkable. GASTROINTESTINAL TRACT: There is mild thick walled small bowel loops likely secondary to edema, new finding. There is a scattered stool in the colon without distention. There is diffuse mesenteric edema and fluid. No free air seen. There is no pneumatosis or pneumobilia. ABDOMINAL WALL: No significant hernia is appreciated. LYMPH NODES: Small shotty lymph nodes are seen in the retroperitoneum. VASCULAR: There are abundant collateral vessels seen in the upper abdomen likely secondary to portal venous hypertension. The splenic vein is a small and tortuous. The abdominal aorta is normal caliber. Origins of celiac and superior mesenteric artery are patent. PELVIC VISCERA: There is free fluid in the pelvis. The prostate gland is normal. OSSEOUS STRUCTURES: No lytic or sclerotic process seen. Grade 1 anterolisthesis L4-L5 there are degenerative disc changes T10-T11 through L1-L2 disc levels with moderate endplates sclerosis and spondylosis at L1-L2 disc level. No compression fracture or lytic process seen. CT/CT abdomen pelvis w con IMPRESSION: Large pancreatic tail pseudocyst with now gas formation likely superinfection. There is diffuse ascites which has increased since the previous study. Also visualized is diffuse mural thickening involving the small bowel loops which could be secondary to edema or nonspecific inflammation. There is no free air seen however. There is no pneumatosis. Large amount of varices in the upper abdomen. Small cyst lower pole left kidney Fleischner guidelines were followed.
--- NOTE | 2022-03-01 15:45 | ED.ABDPAIN ---
HPI - Abdominal Pain General Chief Complaint: Abdominal Pain Stated Complaint: Abdominal Pain Time Seen by Provider: 03/01/22 15:44 Source: patient and EMS Mode of arrival: EMS Limitations: no limitations History of Present Illness HPI narrative: 61-year-old male with extensive past medical history including DM, hx DKA, chronic pancreatitis, former alcohol abuse now sober for the last couple of months, recent ER visit here with abdominal pain due to a hemorrhagic pancreatic pseudocyst requiring emergent transfer to [facility] for intervention who presents to the ER from his [facility] facility with worsening abdominal pain over the last 3 days. Pain got acutely worse today and he began vomiting. He reports pain is located in his middle lower abdomen and radiates to his epigastric area. He comes in waves and is severe, 10/10. He is partially blind and unable to tell of his vomitus has had any blood. He reports ongoing nausea and pain. He denies any fever or chills. He last had a bowel movement yesterday and was normal. On EMS arrival blood pressure was low 80/60. He was given 500 cc of IV fluids with improvement in his blood pressure to the low 90 systolic. MD elicited complaint: abdominal pain Pertinent past history: gastritis and other (Pancreatitis) Onset (ago): week(s) Pain Consistency: constant Location: RLQ and LLQ Severity: severe Pain scale (0-10): 10 Quality: stabbing and sharp Radiation: epigastric Exacerbating factors: nothing Relieving factors: nothing Context: history of similar episodes Associated symptoms: nausea and vomiting Related Data Home Medications Medication Instructions Recorded Confirmed insulin lispro 100 unit/mL 12 unit subcut TIDAC 04/01/21 01/17/22 subcutaneous pen (Humalog KwikPen (U-100) Insulin) baclofen 10 mg tablet 10 mg PO BEDTIME 01/17/22 01/17/22 escitalopram oxalate 10 mg tablet 15 mg PO DAILY 01/17/22 01/17/22 gabapentin 600 mg tablet 600 mg PO TID 01/17/22 01/17/22 insulin glargine 100 unit/mL (3 26 unit subcut QPM 01/17/22 01/17/22 mL) subcutaneous pen Previous Rx's Medication Instructions Recorded nicotine 14 mg/24 hr daily 1 patch transdermal Q24H #28 ea 05/12/21 transdermal patch blood sugar diagnostic (FreeStyle #100 ea 06/23/21 Lite Strips) Allergies Allergy/AdvReac Type Severity Reaction Status Date / Time No Known Drug Allergies Allergy Unknown Verified 03/24/21 00:43 Review of Systems Review of Systems Constitutional: No Fever, No Chills ENT/Mouth: No sore throat, No Rhinorrhea, No Swallowing Difficulty Eyes: No Eye Pain, No Swelling, No Redness Cardiovascular: No Chest Pain, No SOB, No Orthopnea, No Edema Respiratory: No Cough, No Sputum, No Wheezing, No dyspnea Gastrointestinal: + Nausea, + Vomiting, No Diarrhea, + abdominal Pain, No Hematochezia, No Melena Genitourinary: No Dysuria, No Urinary Frequency, No Hematuria Musculoskeletal: No joint pain, No Myalgias Skin: No Skin Lesions, No rash Neuro: No Weakness, No Numbness, No Dizziness, No Headache Psych: No Anxiety/Panic, No Depression Heme/Lymph: No Bruising, No Lymphadenopathy Endocrine: No Polyuria, No Polydipsia PMFSH Past Medical History Medical History Acidosis, lactic Acute dehydration Acute hyperglycemia Alcohol abuse Alcohol abuse Alcohol dependence with withdrawal Alcohol use disorder, severe, dependence Alcoholic gastritis Attention deficit disorder Degenerative disc disease, cervical Depression Diabetes mellitus Dyslipidemia Head injury History of substance abuse Hypomagnesemia Hypotestosteronism Osteoarthritis of right hand Pancreatic cyst Pancreatitis Prolonged QT interval Thrombocytopenia Vomiting Surgical History History of surgery Family History Family History Father Cancer Mother Cancer Diabetes Social History Social History Household Members: None Housing: Apartment Do you presently have visiting nurse or other home services: No Unable to assess alcohol history related to: Refusing to respond Alcohol intake: former Patient Tobacco Use Status: Current everyday Tobacco user Tobacco use type: Cigarette Cigarette Packs Per Day: 2 Cigarettes Per Day: 40.0 Use of substances other than those prescribed or required for medical reasons: No Substance Use Type: Former Substance User Advance Directives: Yes Advance Directives on File: Yes Advance Directives Date on File: 03/05/21 service: No Current occupational status: unemployed and disabled Current occupation: Right Handed Physical Exam ED Vital Signs: Vital Signs - 24 hr 03/01/22 15:45 03/01/22 16:08 03/01/22 16:10 Temperature 98.9 F Pulse Rate 125 H 118 H 122 H Respiratory Rate 17 19 16 Blood Pressure 92/65 91/86 96/64 Pulse Oximetry 92 93 93 Oxygen Delivery Method Room Air Room Air Room Air 03/01/22 16:55 03/01/22 17:11 03/01/22 17:42 Temperature Pulse Rate 105 H 100 Respiratory Rate 14 14 12 Blood Pressure 92/62 89/58 L Pulse Oximetry 94 95 Oxygen Delivery Method Room Air BMI result Body Mass Index 24.9 Appearance: Alert. Oriented X3. In significant pain, moaning and groaning. Eyes: Pupils equal, round and reactive to light. ENT: Pharynx with moist mucus membranes. poor denition Neck: Normal inspection. Neck supple. CVS: Tachycardic, heart rate 130, regular rhythm.. Pulses normal. Respiratory: No respiratory distress. Breath sounds diminished at the bases Abdomen: firm, exquisite tenderness throughout, absent bowel sounds in all 4 quadrants. peritonitic. no flank or umbilical ecchymosis Skin: Skin warm and dry. Normal skin color. Normal skin turgor. No rashes. Extremities: No lower extremity edema. Neuro: Oriented X 3. Slightly slurred speech but conversant, moves all extremities and nonfocal. Course Course Course Narrative: 61-year-old male with a history of a recent hemorrhagic pancreatic pseudocyst requiring stent placement at [facility] presents to the ER with acute onset of 10/10 abdominal pain, nausea, vomiting. Pain has been worsening over the last 3 days and acutely worsened today. On examination he is tachycardic to the 130s, initially hypotensive 80/60 at the facility. His blood pressure slightly improved to 90/60 with 500 cc of fluid in route. On his abdominal exam he is firm, exquisitely tender with absent bowel sounds. Two IV lines have been placed, type and screen sent, septic workup started and will get emergent CT scan of his abdomen. Concern for recurrent bleeding vs perforation vs severe pancreatitis vs infected pseudocyst. Reevaluation(s) Reevaluation #1: Labs show a slight decrease in his hemoglobin from a baseline of 12.6 at the end of December to now 11.7. Blood pressures are stable 90/60 with fluids going. Heart rate improving low 100s now. Given a total of 150 mcg of IV Fentanyl with some improvement in the pain. His chemistry shows LIANA with hyponatremia, most likely hypovolemic in the setting of vomiting. Continue IV fluid resuscitation. Radiology called for stat CT read. Reevaluation #2: CT scan reading large pancreatic tail pseudocyst with now gas formation likely superinfection. Diffuse ascites increased since prior study. There is also mural thickening involving the small bowel which can be edema or nonspecific inflammation. No free air seen, no pneumatosis. IV meropenem ordered for documented infection at 17:23. Nursing aware. Called [facility] given patient's recent interventions there at the end of December. He has been accepted under Dr. Alaniz be sent to [facility] Emergency Department on ALS truck. MDM - Abdominal Pain Lab Data Result diagrams: 03/01/22 16:06 03/01/22 16:06 Labs: Lab Results 03/01/22 03/01/22 03/01/22 Range/Units 16:02 16:06 16:06 WBC 2.7 L (4.8-10.8) X10*3/uL RBC 4.27 L (4.60-5.80) X10*6/uL Hgb 11.7 L (14.0-18.0) g/dl Hct 34.3 L (42.0-52.0) % MCV 80.3 (80.0-98.0) fL MCH 27.4 (27.0-33.0) pg MCHC 34.1 (31.0-36.0) g/dl RDW 13.5 (11.0-16.0) % Plt Count 102 L D (160-400) X10*3/uL MPV 11.1 (9.4-12.4) fL Immature Gran % (Auto) 0.7 H (0.0-0.4) % Neut % (Auto) 82.5 H (45-73) % Lymph % (Auto) 10.8 L (20-40) % Berks % (Auto) 4.5 (2-11) % Eos % (Auto) 1.1 (0-4) % Baso % (Auto) 0.4 (0-2) % Lymph # (Auto) 0.3 L (1.2-4.9) X10*3/uL Berks # (Auto) 0.1 (0.1-1.2) X10*3/uL Eos # (Auto) 0.0 (0.0-0.4) X10*3/uL Baso # (Auto) 0.0 (0.0-0.2) X10*3/uL Abs Immat Gran (auto) 0.02 (0.00-0.03) X10*3/uL Absolute Neuts (auto) 2.2 (2.0-8.3) x10*3/uL Absolute Nucleated RBC 0.000 (0.0-0.012) X10*3/uL Nucleated RBC % (auto) 0.0 (0.0-0.2) /100WBC Sodium 126 L (135-145) mmol/L Potassium 3.6 (3.3-5.1) mmol/L Chloride 96 (96-108) mmol/L Carbon Dioxide 18 L (22-29) mmol/L Anion Gap 16 (12-20) BUN 32 H D (9-16) mg/dL Creatinine 1.55 H (0.5-1.4) mg/dL Estim Creat Clear Calc 45.7 Estimated GFR 46 Random Glucose 192 H (60-115) mg/dL Lactic Acid (0.5-2.0) mmol/L Calcium 7.4 L D (8.4-10.2) mg/dL Magnesium 1.2 L* (1.6-2.6) mg/dL Total Bilirubin 0.9 (0.0-1.0) mg/dL Direct Bilirubin 0.7 H (0.0-0.5) mg/dL AST 16 (5-37) U/L ALT 9 (0-40) U/L Alkaline Phosphatase 91 (39-117) U/L Total Protein 5.7 L D (6.5-8.0) g/dL Albumin 3.0 L D (3.5-5.0) g/dL Lipase 30 (8-78) U/L Ethyl Alcohol mg/dL COVID-19 ([facility]) (Negative) COVID-19 Clin Com Blood Type O Positive Antibody Screen NEGATIVE 03/01/22 03/01/22 03/01/22 Range/Units 16:06 16:06 16:06 WBC (4.8-10.8) X10*3/uL RBC (4.60-5.80) X10*6/uL Hgb (14.0-18.0) g/dl Hct (42.0-52.0) % MCV (80.0-98.0) fL MCH (27.0-33.0) pg MCHC (31.0-36.0) g/dl RDW (11.0-16.0) % Plt Count (160-400) X10*3/uL MPV (9.4-12.4) fL Immature Gran % (Auto) (0.0-0.4) % Neut % (Auto) (45-73) % Lymph % (Auto) (20-40) % Berks % (Auto) (2-11) % Eos % (Auto) (0-4) % Baso % (Auto) (0-2) % Lymph # (Auto) (1.2-4.9) X10*3/uL Berks # (Auto) (0.1-1.2) X10*3/uL Eos # (Auto) (0.0-0.4) X10*3/uL Baso # (Auto) (0.0-0.2) X10*3/uL Abs Immat Gran (auto) (0.00-0.03) X10*3/uL Absolute Neuts (auto) (2.0-8.3) x10*3/uL Absolute Nucleated RBC (0.0-0.012) X10*3/uL Nucleated RBC % (auto) (0.0-0.2) /100WBC Sodium (135-145) mmol/L Potassium (3.3-5.1) mmol/L Chloride (96-108) mmol/L Carbon Dioxide (22-29) mmol/L Anion Gap (12-20) BUN (9-16) mg/dL Creatinine (0.5-1.4) mg/dL Estim Creat Clear Calc Estimated GFR Random Glucose (60-115) mg/dL Lactic Acid 1.8 (0.5-2.0) mmol/L Calcium (8.4-10.2) mg/dL Magnesium (1.6-2.6) mg/dL Total Bilirubin (0.0-1.0) mg/dL Direct Bilirubin (0.0-0.5) mg/dL AST (5-37) U/L ALT (0-40) U/L Alkaline Phosphatase (39-117) U/L Total Protein (6.5-8.0) g/dL Albumin (3.5-5.0) g/dL Lipase (8-78) U/L Ethyl Alcohol < 10 mg/dL COVID-19 ([facility]LA) Negative (Negative) COVID-19 Clin Com See Note Blood Type Antibody Screen Critical Care Time Critical Care Time Critical Care Time: Yes Total Critical Care Time: 48 Attestation: I have personally provided critical care time exclusive of time spent on separately billable procedures. Time includes review of lab data, radiology results, discussion with consultants, and monitoring for potential decompensation. Intervention performed as documented. Discharge Plan Discharge Clinical Impression: Infected pancreatic pseudocyst, Severe sepsis Patient Disposition: [facility] Transfer Details: [facility] Instructions: Pancreatic Pseudocyst (DC) Prescriptions: No [facility] (DME) FreeStyle Lite Strips Strip See Rx Instructions .Route Qty: 100 6RF Rx Instructions: As directed- In Vitro to test blood sugars TID insulin lispro [Humalog KwikPen Insulin] 100 unit/mL Insulin Pen 12 unit SUBCUT TIDAC nicotine 14 mg/24 hr patch 24 hour 1 patch transdermal Q24H Qty: 28 0RF gabapentin 600 mg Tablet 600 mg PO TID baclofen 10 mg Tablet 10 mg PO BEDTIME escitalopram oxalate 10 mg Tablet 15 mg PO DAILY Semglee Pen U-100 Insulin 100 unit/mL (3 mL) Insulin Pen 26 unit SUBCUT QPM
[2022-03-01] MEDS: 0.9 % Sodium Chloride 1,000 ML 999 ML IVCONT ×2 (16:10→17:50)
[2022-03-01 16:13] LABS: MANUAL DIFF FLAG NO
[2022-03-01] MEDS: fentaNYL citrate/PF 100 MCG/2 ML VIAL 50 MCG IVPUSH ×2 (16:15→18:27)
[2022-03-01 16:17] LABS: Basophils Percent Auto 0.4 % (0-2); Eosinophils Percent Auto 1.1 % (0-4); Hematocrit 34.3 % (42.0-52.0); Hemoglobin 11.7 g/dl (14.0-18.0); Imm Gran Abs Auto 0.02 X10*3/uL (0.00-0.03); Imm Gran Pct Auto 0.7 % (0.0-0.4); Lymphocytes Absolute Auto 0.3 X10*3/uL (1.2-4.9); Lymphocytes Percent Auto 10.8 % (20-40); Mean Corpuscular HGB Conc 34.1 g/dl (31.0-36.0); Mean Corpuscular Hemoglobin 27.4 pg (27.0-33.0); Mean Corpuscular Volume 80.3 fL (80.0-98.0); Mean Platelet Volume 11.1 fL (9.4-12.4); Monocytes Absolute Auto 0.1 X10*3/uL (0.1-1.2); Monocytes Percent Auto 4.5 % (2-11); Neutrophils Absolute Auto 2.2 x10*3/uL (2.0-8.3); Neutrophils Percent Auto 82.5 % (45-73); Platelet Count 102 X10*3/uL (160-400); Red Blood Count 4.27 X10*6/uL (4.60-5.80); Red Cell Distribution Width 13.5 % (11.0-16.0); White Blood Count 2.7 X10*3/uL (4.8-10.8)
[2022-03-01 16:24] LABS: Lactic Acid 1.8 mmol/L (0.5-2.0)
[2022-03-01 16:26] LABS: Ethanol < 10 mg/dL
[2022-03-01 16:32] LABS: Alanine Aminotransferase 9 U/L (0-40); Alkaline Phosphatase 91 U/L (39-117); Anion Gap 16 (12-20); Aspartate Amino Transferase 16 U/L (5-37); Bilirubin Direct 0.7 mg/dL (0.0-0.5); Bilirubin Total 0.9 mg/dL (0.0-1.0); Blood Urea Nitrogen 32 mg/dL (9-16); Calcium 7.4 mg/dL (8.4-10.2); Carbon Dioxide 18 mmol/L (22-29); Chloride 96 mmol/L (96-108); Creatinine Clr Calc Pharmacy 45.7; Estimated Glomerular Filt Rate 46; Glucose Random 192 mg/dL (60-115); Lipase 30 U/L (8-78); Magnesium 1.2 mg/dL (1.6-2.6); Potassium 3.6 mmol/L (3.3-5.1); Sodium 126 mmol/L (135-145); Total Protein 5.7 g/dL (6.5-8.0)
[2022-03-01 16:40] LABS: COVID-19 Test Negative (Negative); IDNOW Serial# 16C4AD1C
[2022-03-01] MEDS: iohexoL 350 MG/ML 100 ML INFUS..BTL IV (16:51)
[2022-03-01] MEDS: fentaNYL citrate/PF 100 MCG/2 ML VIAL IVPUSH (17:11)
[2022-03-01] MEDS: Lactated Ringers 1,000 ML 999 ML IV (17:24)
[2022-03-01] MEDS: Magnesium Sulfate/H2O 2 GM/50 ML PIGGYBACK IV (17:24)
[2022-03-01] MEDS: Albumin Human 25 % 100 ML IV (17:25)
--- NOTE | 2022-03-01 18:05 | PC.NURSE ---
JOE Anderson called [facility] to get pt transfered. [facility] accepted pt in the ED. Call was placed to [facility] at 1732 for ALS they then stated 30 mins. Recived a call back at 1745 to push back time for 45 mins. Provider then asked that we try another company. [facility], [facility] declined due to lack or trucks or distance. I then spoke with the provider they agreed that if [facility] calls back and they push back the time again we will try [facility]
[2022-03-01] MEDS: ondansetron HCL 4 MG/2 ML VIAL IVPUSH (18:33)
== END 2022-03-01 19:04 | disposition short-term general hospital (02) ==
PROVIDERS: Physician Assistant; Emergency Provider Emergency Medicine; PCP Internal Medicine
DX: K86.3 Pseudocyst of pancreas (principal); R65.20 Severe sepsis without septic shock; R10.30 Lower abdominal pain, unspecified; R11.2 Nausea with vomiting, unspecified; R00.0 Tachycardia, unspecified; Z20.822 Contact with and (suspected) exposure to COVID-19; E11.9 Type 2 diabetes mellitus without complications; E78.5 Hyperlipidemia, unspecified; F10.11 Alcohol abuse, in remission; Y90.0 Blood alcohol level of less than 20 mg/100 ml; F17.200 Nicotine dependence, unspecified, uncomplicated; Z79.4 Long term (current) use of insulin
CPT/HCPCS: 36415; 74177; 80048; 80076; 82077; 83605; 83690; 83735; 85025; 86850; 86900; 86901; 87040; 87635; 96361; 96365; 96375; 96376; 99285; 99291; J2185; J2405; J3010; J3475; P9047; Q9967

== ENCOUNTER → 2022-03-27 11:36 | Outpatient (BNVA) | payer MEDICAID, SELFPAY | PROVIDERS: PCP Internal Medicine; Visit Provider Internal Medicine Gastroenterology | DX: Q45.3 Other congenital malformations of pancreas and pancreatic duct (principal); R18.8 Other ascites | CPT/HCPCS: 99202 ==

== ENCOUNTER 2022-04-04 22:26 | Emergency (ER) | payer MEDICAID, SELFPAY ==
[2022-04-04 22:32] VITALS: BP 112/65; PULSE 83; O2SAT 95
[2022-04-04 22:36] VITALS: BP 104/67; PULSE 79; RESP 16; O2SAT 96; BMI 22.3
--- NOTE | 2022-04-04 22:46 | ED_ITS ---
HPI - Alcohol General Chief Complaint: ETOH/Substance Use Stated Complaint: ETOH Time Seen by Provider: 04/04/22 22:37 Source: patient and EMS Mode of arrival: EMS Limitations: other (Intoxicated) History of Present Illness HPI narrative: Patient comes to the emergency room via EMS. Patient is coming from [facility]. Patient left the custodial facility, went to the package store where he drank 2 nebs, return to the custodial facility intoxicated. Patient states that his lady friend gave him money to purchase alcohol, patient but the sleeve of nips, reports that he and his friend split half and half. Patient has no complaints, has no abdominal pain. Patient states that he feels ?like a million bucks?. No falls. The custodial facility refuses to accept the patient back until he has a urine tox Related Data Home Medications Medication Instructions Recorded Confirmed insulin lispro 100 unit/mL 12 unit subcut TIDAC 04/01/21 01/17/22 subcutaneous pen (Humalog KwikPen (U-100) Insulin) baclofen 10 mg tablet 10 mg PO BEDTIME 01/17/22 01/17/22 escitalopram oxalate 10 mg tablet 15 mg PO DAILY 01/17/22 01/17/22 gabapentin 600 mg tablet 600 mg PO TID 01/17/22 01/17/22 insulin glargine 100 unit/mL (3 26 unit subcut QPM 01/17/22 01/17/22 mL) subcutaneous pen morphine 10 mg capsule,extended 10 mg PO DAILY 03/27/22 release pellets Previous Rx's Medication Instructions Recorded blood sugar diagnostic (FreeStyle #100 ea 06/23/21 Lite Strips) Allergies Allergy/AdvReac Type Severity Reaction Status Date / Time No Known Drug Allergies Allergy Unknown Verified 04/04/22 22:40 Review of Systems Review of Systems: Constitutional : No Weight loss, No Fever, No Chills, No Night Sweats, No Fatigue, No Malaise ENT/Mouth : No Hearing loss, No Ear Pain, No Nasal Congestion, No Sinus Pain, No Hoarseness, No sore throat, No Rhinorrhea, No Swallowing Difficulty Eyes: No Eye Pain, No Swelling, No Redness, No Foreign Body, No Discharge, No Vision Changes Cardiovascular : No Chest Pain, No SOB, No Dyspnea on Exertion, No Orthopnea, No Edema, No Palpitations Respiratory : No Cough, No Sputum, No Wheezing, No Smoke Exposure, No Dyspnea Gastrointestinal : No Nausea, No Vomiting, No Diarrhea, No Constipation, No abdominal Pain, No Hematochezia, No Melena Genitourinary : no irregular bleeding, No Dysuria, No Urinary Frequency, No Hematuria, No Urinary Incontinence, No Urgency, No Flank Pain, No Urinary Flow Changes, No Hesitancy Musculoskeletal : No joint pain, No Myalgias, No Joint Swelling Skin : No Skin Lesions, No rash Neuro : No Weakness, No Numbness, No Paresthesias, No Loss of Consciousness, No Dizziness, No Headache Psych : No Anxiety/Panic, No Depression, No SI/HI/AH/VH, No Social Issues, Heme/Lymph: No Bruising, No Bleeding,No Lymphadenopathy Endocrine : No Polyuria, No Polydipsia, No Temperature Intolerance [facility] Past Medical History Medical History Acidosis, lactic Acute dehydration Acute hyperglycemia Alcohol abuse Alcohol abuse Alcohol dependence with withdrawal Alcohol use disorder, severe, dependence Alcoholic gastritis Attention deficit disorder Degenerative disc disease, cervical Depression Diabetes mellitus Dyslipidemia Head injury History of substance abuse Hypomagnesemia Hypotestosteronism Osteoarthritis of right hand Pancreatic cyst Pancreatitis Prolonged QT interval Thrombocytopenia Vomiting Surgical History History of surgery Hx of colonoscopy Family History Family History Father Cancer Mother Cancer Diabetes Social History Social History Household Members: None Housing: Apartment Do you presently have visiting nurse or other home services: No Unable to assess alcohol history related to: Refusing to respond Alcohol intake: former Patient Tobacco Use Status: Current everyday Tobacco user Tobacco use type: Cigarette Cigarette Packs Per Day: 2 Cigarettes Per Day: 40.0 Substance Use Type: Former Substance User Advance Directives: Yes Advance Directives on File: Yes Advance Directives Date on File: 03/05/21 service: No Current occupational status: unemployed and disabled Current occupation: Right Handed Physical Exam ED Vital Signs: Vital Signs - 24 hr 04/04/22 22:36 Pulse Rate 79 Respiratory Rate 16 Blood Pressure 104/67 Pulse Oximetry 96 Oxygen Delivery Method Room Air BMI result Body Mass Index 22.3 Const Other: Appearance: Alert. Oriented X3. No acute distress. Eyes: Pupils equal, round and reactive to light. ENT: Pharynx normal. Neck: Normal inspection. Neck supple. No lymph nodes noted. No crepitus CVS: Normal heart rate and rhythm. Pulses normal. Normal S1 and S2 Respiratory: No respiratory distress. Breath sounds normal. No Wheezing. No rales Abdomen: Soft and nontender. No rigidity. No distention. Skin: Skin warm and dry. Normal skin color. Normal skin turgor. Extremities: No lower extremity edema. No Lacerations. No Rash Neuro: Oriented X 3. No motor deficit. No sensory deficit. Moving all extremities. No slurred speech. CN 2 through 12 grossly intact Psych: calm, cooperative, normal affect Course Course Course Narrative: Patient has no complaints. Patient feeling well. We will go ahead and get the urine tox and blood alcohol level Patient remains asymptomatic. Urine toxicology negative, alcohol level 81. MDM - Alcohol Lab Data Labs: Lab Results 04/04/22 04/04/22 Range/Units 23:10 23:17 Urine Opiates Screen Not Detected (Not Detect) Urine Fentanyl Screen Not Detected (Not Detect) Ur Barbiturates Screen Not Detected (Not Detect) Ur Phencyclidine Scrn Not Detected (Not Detect) Ur Amphetamines Screen Not Detected (Not Detect) U Benzodiazepines Scrn Not Detected (Not Detect) Urine Cocaine Screen Not Detected (Not Detect) U Marijuana (THC) Screen Not Detected (Not Detect) Ethyl Alcohol 81 mg/dL Discharge Plan Discharge Clinical Impression: Alcohol intoxication Patient Disposition: Home, Self-Care Instructions: Alcohol Intoxication (ED) Additional Instructions: Please follow-up with your primary care physician tomorrow. If you have any worsening or new symptoms, please return to the emergency room or call 911 Prescriptions: No Action (DME) FreeStyle Lite Strips Strip See Rx Instructions .Route Qty: 100 6RF Rx Instructions: As directed- In Vitro to test blood sugars TID insulin lispro [Humalog KwikPen Insulin] 100 unit/mL Insulin Pen 12 unit SUBCUT TIDAC gabapentin 600 mg Tablet 600 mg PO TID baclofen 10 mg Tablet 10 mg PO BEDTIME escitalopram oxalate 10 mg Tablet 15 mg PO DAILY Semglee Pen U-100 Insulin 100 unit/mL (3 mL) Insulin Pen 26 unit SUBCUT QPM morphine 10 mg capsule,extend.release pellets 10 mg PO DAILY
[2022-04-04 23:34] LABS: Ethanol 81 mg/dL
[2022-04-04 23:37] LABS: Amphetamine Screen Urine Not Detected (Not Detect); Barbiturates, Urine Not Detected (Not Detect); Benzodiazepines Screen Urine Not Detected (Not Detect); Cannabinoid Screen Urine Not Detected (Not Detect); Cocaine Screen Urine Not Detected (Not Detect); Fentanyl, urine Not Detected (Not Detect); Opiate Screen Urine Not Detected (Not Detect); Phencyclidine Screen Urine Not Detected (Not Detect)
--- NOTE | 2022-04-05 00:29 | PC.NURSE ---
Nurse to nurse given, [place] aware of plan to transport pt back to SNF via EMS.
[2022-04-05 00:39] VITALS: BP 91/60; PULSE 76; RESP 18; O2SAT 96
[2022-04-05 02:58] VITALS: BP 95/62; PULSE 72; RESP 18; O2SAT 97
--- NOTE | 2022-04-05 04:27 | PC.NURSE ---
spoke to FERNANDO from [facility] @0040 to transport patient back to [facility]. FERNANDO gave be an ETA of the morning when new crews come in will call at @0700 for updated ETA
[2022-04-05 06:09] VITALS: RESP 18
== END 2022-04-05 08:50 | disposition home or self-care (01) ==
PROVIDERS: Emergency Provider Emergency Medicine; PCP Internal Medicine
DX: Z02.2 Encounter for examination for admission to residential institution (principal); F10.120 Alcohol abuse with intoxication, uncomplicated; Y90.4 Blood alcohol level of 80-99 mg/100 ml; E11.9 Type 2 diabetes mellitus without complications; E78.5 Hyperlipidemia, unspecified; Z79.899 Other long term (current) drug therapy; Z79.4 Long term (current) use of insulin
CPT/HCPCS: 36415; 80307; 82077; 99283

== ENCOUNTER 2022-04-25 12:45 | Emergency (ER) | payer MEDICAID, SELFPAY ==
--- NOTE | ~2022-04-25 | CT_ITS ---
EXAMINATION: CT ABDOMEN AND PELVIS WITH CONTRAST CLINICAL INFORMATION: Diffuse abdominal pain. Nausea and vomiting. COMPARISON: Multiple priors with the last abdomen and pelvic CT 03/01/2022. CT of the abdomen and pelvis 03/09/2022 from [facility]. TECHNIQUE: Multidetector volumetric images were obtained from the superior aspect of the liver through the pubic symphysis following administration 85 mL of Omnipaque 350 intravenous contrast. Sagittal and coronal reformatted images were obtained on the technologist's workstation. Oral contrast: No. This CT examination was performed using dose optimization techniques as appropriate, variously including the following: *Automated exposure control *Adjustment of mA and/or kV according to patient size (this includes techniques or standardized protocols for targeted exams where dose is matched to indication/reason for exam; i.e. extremities or head) *Use of iterative reconstruction technique. DLP: 409 mGy-cm FINDINGS: LUNG BASES: Partial visualization of bilateral gynecomastia. The lung bases are unremarkable. No pericardial or pleural effusion. LIVER, GALLBLADDER, AND BILIARY TREE: The liver is normal in size, shape, and attenuation. No focal hepatic lesion or biliary ductal dilatation is present. The gallbladder is unremarkable with no evidence of radiopaque gallstones, gallbladder wall thickening, or obvious pericholecystic inflammatory changes. PANCREAS: A peripherally thick-walled cystic mass in the pancreatic tail is again noted, measuring 10.9 x 7.0 x 8.5 cm in length, AP and transverse dimensions, previously at a similar location 10.1 x 6.0 x 6.2 cm. Superiorly this cystic mass appears to be invading the adjacent stomach wall. The thickening around the cystic mass has significantly resolved when compared to previous CT of 03/01/2022, previously 7.5 x 3.7 x 4.2 cm in length, AP and transverse dimensions (03/09/2022). No definite internal air foci are noted at this time. On current examination streaky hyperdensity with somewhat amorphous hyperdense appearance are noted in the superior aspect of the pseudocyst (series 3, images 25 through 27) with somewhat layering hyperdensities more inferiorly (series 3, image 30). Appearance of the pancreatic body and tail with moderate atrophy and multiple calcifications (parenchymal and/or ductal) is a stable finding. SPLEEN: Upper limits of normal in size measuring 13 cm. No focal splenic lesion is noted. ADRENAL GLANDS: Unremarkable. KIDNEYS AND URETERS: The kidneys are normal in size and shape. Differential enhancement of the kidneys with delayed left nephrogram is a new finding compared to multiple previous CT scans. Recommend clinical correlation. A 1.7 x 2.4 cm hypodense lesion consistent with a cyst by CT Hounsfield criteria in the left renal lower pole is a stable finding and no further imaging follow up of this finding is recommended. There is no evidence of hydroureteronephrosis. No definite radiopaque urinary tract calculi are seen. BLADDER: Unremarkable. GASTROINTESTINAL TRACT: PERITONEAL CAVITY, OMENTUM AND MESENTERY: The stomach is partially distended. Cystic mass in the pancreatic tail representing pancreatic pseudocyst invading into the adjacent stomach superiorly as described above. There are fluid-filled structures in the lower abdomen/pelvis (series 3, image 44 through 57 of 104 and series 5, images 30 through 50 of 85). The right hemiabdomen measures 4.2 x 7.2 cm (series 3, image 50), one in the midline measures 1.8 x 2.7 cm (series 3, image 49) and in the left hemiabdomen the finding measures 4.7 x 2.9 cm (series 3, image 52). It is unclear whether these collections represent dilated fluid-filled, thick-walled bowel loops or interloop abscess collections. No air is noted within these fluid-filled structures. The right-sided structure and the smaller structure in the midline appear to be communicating with each other. The findings are new compared to previous CT scan of 03/01/2022. Without oral contrast administration further evaluation is somewhat limited. The remainder of the small bowel demonstrates no abnormal dilatation. The colon is normal in caliber. No evidence of colonic wall thickening. An appendix is not clearly identified, however there are no inflammatory changes in the expected location of the appendix. Stranding and fluid is noted in the omentum and mesentery in the upper abdomen. Small perihepatic and perisplenic free fluid. ABDOMINAL WALL: There is a small fat-containing left inguinal hernia. LYMPH NODES: Portacaval lymph node is noted measuring 1.3 cm in short axis, probably reactive. VASCULAR: Intra and extrahepatic portal venous system and SMV are patent. Splenic vein is not well seen, likely chronically thrombosed. Varices are noted around the stomach. The aortoiliac vessels are normal in caliber and well opacified. Ebjh-[id number] calcific atherosclerosis of the aortoiliac vessels. PELVIC VISCERA: Unremarkable. OSSEOUS STRUCTURES: No acute or suspicious osseous abnormality is noted. Stable mild grade 1 anterolisthesis of L4 over L5 and mild grade 1 retrolisthesis of L1 over L2 and L2 over L3. Degenerative disc disease is noted in the lower thoracic and upper lumbar spine. CT/CT abdomen pelvis w IV con IMPRESSION: Interval increase in the cystic mass centered in the pancreatic tail, consistent with known pancreatic pseudocyst. Superiorly the pseudocyst appears to be invading into the stomach. Air foci noted on the CT scan of 03/01/2022 within this pseudocyst are not seen on the current examination. Streaky, amorphous as well as layering hyperdensities are noted within the pseudocyst and are concerning for active intravenous contrast extravasation suggesting hemorrhage within the pseudocyst. Additional fluid-containing thick-walled structures in the lower abdomen/upper pelvis as described above, given the lack of oral contrast administration it is difficult to decide whether this represents interloop abscess collections or focal abnormal dilatation of the small bowel loops. The findings are new compared to previous CT 03/01/2022, however somewhat similar findings without associated peripheral thick wall are noted on the previous CT of 03/09/2022 (series 2, image 64). Abscess collections are favored over dilated small bowel loops. Significant interval improvement in the previously noted kyktcshh-[id number]-[id number] volume ascites with persistent small perihepatic and perisplenic ascites. Delayed nephrogram on the left of unclear etiology, recommend clinical correlation. The findings were discussed with Dr. Forrest on 04/25/2022 at 4:32 PM. The findings were again discussed with JOE Lovelace in the emergency room on 04/25/2022 at 4:53 PM. Fleischner guidelines were followed.
[2022-04-25 13:01] VITALS: BP 152/109; PULSE 77; RESP 18; TEMP 36.9; O2SAT 97; BMI 25.6
--- NOTE | 2022-04-25 13:37 | ED_ITS ---
HPI - Abdominal Pain General Chief Complaint: Abdominal Pain Stated Complaint: LOW ABDOMINAL PAIN Time Seen by Provider: 04/25/22 13:15 Source: patient and EMS Mode of arrival: EMS History of Present Illness HPI narrative: 61-year-old male with a past medical history of diabetes, DKA, chronic pancreatitis, ETOH abuse, hemorrhagic pancreatic pseudocyst, presenting to ED via EMS from [facility] complaining of lower abdominal pain, nausea, and vomiting since this morning. Denies similar symptoms in the past. Denies fever, diarrhea, dysuria / hematuria, EtOH or illicit substance use MD elicited complaint: abdominal pain Onset (ago): hour(s) Related Data Home Medications Medication Instructions Recorded Confirmed insulin lispro 100 unit/mL 0 sliding scale dose subcut QIDACHS 04/01/21 04/25/22 subcutaneous pen (Humalog KwikPen (U-100) Insulin) baclofen 10 mg tablet 10 mg PO BEDTIME 01/17/22 04/25/22 escitalopram oxalate 10 mg tablet 15 mg PO DAILY 01/17/22 04/25/22 gabapentin 600 mg tablet 600 mg PO TID 01/17/22 04/25/22 insulin glargine 100 unit/mL (3 10 unit subcut BEDTIME 01/17/22 04/25/22 mL) subcutaneous pen albuterol sulfate 90 mcg/actuation 2 puff inhalation Q6H PRN Wheezing 04/25/22 04/25/22 aerosol inhaler cholecalciferol (vitamin D3) 25 25 mcg PO DAILY 04/25/22 04/25/22 mcg (1,000 unit) tablet cyanocobalamin (vitamin B-12) 1,000 mcg PO DAILY 04/25/22 04/25/22 1,000 mcg tablet,extended release ferrous sulfate 325 mg (65 mg 325 mg PO BID 04/25/22 04/25/22 iron) tablet folic acid 1 mg tablet 1 mg PO DAILY 04/25/22 04/25/22 furosemide 20 mg tablet 20 mg PO DAILY 04/25/22 04/25/22 furosemide 40 mg tablet 40 mg PO DAILY 04/25/22 04/25/22 hydroxyzine HCl 25 mg tablet 25 mg PO Q8H PRN Itching 04/25/22 04/25/22 lactulose 10 gram/15 mL (15 mL) 30 ml PO DAILY 04/25/22 04/25/22 oral solution lactulose 10 gram/15 mL (15 mL) 30 ml PO Q4H PRN Constipation 04/25/22 04/25/22 oral solution lorazepam 0.5 mg tablet 0.5 mg PO Q12H PRN Anxiety 04/25/22 04/25/22 melatonin 3 mg tablet 3 mg PO BEDTIME 04/25/22 04/25/22 multivitamin 1 tab PO DAILY 04/25/22 04/25/22 ondansetron HCl 4 mg tablet 4 mg PO Q8H PRN Nausea 04/25/22 04/25/22 oxycodone 10 mg tablet,crush 10 mg PO BID 04/25/22 04/25/22 resistant,extended release 12 hr (OxyContin) oxycodone 5 mg tablet 5 mg PO Q6H PRN Pain 04/25/22 04/25/22 pantoprazole 40 mg tablet,delayed 40 mg PO DAILY 04/25/22 04/25/22 release (Protonix) polyethylene glycol 3350 17 gram 17 g PO BID 04/25/22 04/25/22 oral powder packet (Miralax) quetiapine 50 mg tablet 50 mg PO BID 04/25/22 04/25/22 quetiapine 50 mg tablet 50 mg PO DAILY 04/25/22 04/25/22 sennosides 8.6 mg-docusate sodium 2 tab-cap PO BEDTIME 04/25/22 04/25/22 50 mg tablet (Senna-S) spironolactone 100 mg tablet 100 mg PO DAILY 04/25/22 04/25/22 tamsulosin 0.4 mg capsule 0.4 mg PO BEDTIME 04/25/22 04/25/22 thiamine HCl (vitamin B1) 100 mg 100 mg PO DAILY 04/25/22 04/25/22 tablet Previous Rx's Medication Instructions Recorded blood sugar diagnostic (FreeStyle #100 ea 06/23/21 Lite Strips) Allergies Allergy/AdvReac Type Severity Reaction Status Date / Time No Known Drug Allergies Allergy Unknown Verified 04/04/22 22:40 Review of Systems Review of Systems Constitutional: No Fever, No Chills, No Night Sweats, No Fatigue, No Malaise ENT/Mouth:No Ear Pain, No Nasal Congestion, No Sinus Pain, No Hoarseness, No sore throat, No Rhinorrhea, No Swallowing Difficulty Eyes: No Eye Pain, No Swelling, No Redness, No Vision Changes Cardiovascular: No Chest Pain, No SOB, No Dyspnea on Exertion, No Orthopnea, No Edema, No Palpitations Respiratory: No Cough, No Sputum, No Dyspnea Gastrointestinal: + Nausea, + Vomiting, No Diarrhea, No Constipation, + Abdominal pain Genitourinary: No irregular bleeding, No Dysuria, No Urinary Frequency, No Hematuria, No Flank Pain, No Urinary Flow Changes, No Hesitancy Musculoskeletal: No joint pain, No Myalgias, No Joint Swelling Skin: No Skin Lesions, No rash Neuro: No Weakness, No Numbness, No Headache Yes all other systems are reviewed and are negative Constitutional: Reports as per [facility] Past Medical History Attestation statement: The following information was validated with the patient. Medical History (Updated 04/25/22 @ 17:46 by Baldev Sharma MD) Acidosis, lactic Acute dehydration Acute hyperglycemia Alcohol abuse Alcohol abuse Alcohol dependence with withdrawal Alcohol use disorder, severe, dependence Alcoholic gastritis Attention deficit disorder Degenerative disc disease, cervical Depression Diabetes mellitus Dyslipidemia Head injury History of substance abuse Hypomagnesemia Hypotestosteronism Osteoarthritis of right hand Pancreatic cyst Pancreatitis Prolonged QT interval Pseudocyst of pancreas Thrombocytopenia Vomiting Surgical History History of surgery Hx of colonoscopy Family History Family History Father Cancer Mother Cancer Diabetes Social History Social History Household Members: None Housing: Apartment Do you presently have visiting nurse or other home services: No Unable to assess alcohol history related to: Refusing to respond Alcohol intake: former Patient Tobacco Use Status: Current everyday Tobacco user Tobacco use type: Cigarette Cigarette Packs Per Day: 2 Cigarettes Per Day: 40.0 Substance Use Type: Former Substance User Advance Directives: Yes Advance Directives on File: Yes Advance Directives Date on File: 03/05/21 service: No Current occupational status: unemployed and disabled Current occupation: Right Handed Physical Exam ED Vital Signs: Vital Signs - 24 hr 04/25/22 13:01 04/25/22 15:25 04/25/22 15:59 Temperature 98.4 F 97.6 F Pulse Rate 77 72 Respiratory Rate 18 18 Blood Pressure 152/109 H Pulse Oximetry 97 Oxygen Delivery Method Room Air BMI result Body Mass Index 25.6 Const Other: wearing sunglasses during evaluation General: cooperative, healthy appearing and no acute distress Orientation/consciousness: patient oriented x3 Limitations: no limitations HENMT Head: Yes normal to inspection and Yes atraumatic Ears: hearing grossly normal bilaterally General nose exam: Normal external nose present Face and sinus: Yes normal facial exam Eyes General: appearance normal, both eyes and all related structures EOM: EOMs intact bilaterally Neck Neck: Yes normal visual inspection and Yes no meningeal signs Resp Effort & Inspection: normal respiratory effort and no respiratory distress Auscultation: clear to auscultation bilaterally Cardio Rate: regular rate Heart sounds: S1 normal heart sound present and S2 normal heart sound present GI Inspection: Yes normal to inspection Palpation (GI): Soft to palpation, Tenderness to palpation present (GI) (diffusely) with no rebound tenderness, Guarding due to palpation present (GI) and not rigid General: Yes no CVA tenderness Back/Spine/Pelvis Back: no CVA tenderness Skin Rashes: no rashes Wounds: no wounds Neuro General: patient oriented x3, tone normal and no meningeal signs Gait exam (Neuro): Normal gait present Extrem General: Yes normal to inspection Course Course Course Narrative: -1521-- no leukocytosis, H&H stable, chronic hyponatremia. BUN chronically elevated. Glucose 393, no anion gap > will obtain acetone - lipase mildly elevated to 84 - UA with blood, not infected -1650-- received call from [facility] CT shows pancreatic pseudocyst infiltrating gastric wall and lower abdominal fluid collections. Case discussed with General surgery Dr. Sharma who will evaluate patient in the ED. Empiric Zosyn and vancomycin ordered - received additional call from [facility] there was concern patient has recurrent hemorrhagic pseudocyst. Dr. Sharma was updated, he is currently on his way to the ED, will start transfer process. Patient hemodynamically stable complaining of pain, IV Dilaudid ordered -1703-- called [facility] however closed to transfers other than Pedi/ STEMI/Ob or trauma -1705-- [facility] declined transfer -1709-- [facility] closed for transfers due to code health status -1717-- patient accepted to [facility] accepting physician Dr. Willoughby CT abdomen pelvis w IV con IMPRESSION: Interval increase in the cystic mass centered in the pancreatic tail, consistent with known pancreatic pseudocyst. Superiorly the pseudocyst appears to be invading into the stomach. Air foci noted on the CT scan of 03/01/2022 within this pseudocyst are not seen on the current examination. Streaky, amorphous as well as layering hyperdensities are noted within the pseudocyst and are concerning for active intravenous contrast extravasation suggesting hemorrhage within the pseudocyst. ? Additional fluid-containing thick-walled structures in the lower abdomen/upper pelvis as described above, given the lack of oral contrast administration it is difficult to decide whether this represents interloop abscess collections or focal abnormal dilatation of the small bowel loops. The findings are new compared to previous CT 03/01/2022, however somewhat similar findings without associated peripheral thick wall are noted on the previous CT of 03/09/2022 (series 2, image 64). Abscess collections are favored over dilated small bowel loops. ? Significant interval improvement in the previously noted [id number] volume ascites with persistent small perihepatic and perisplenic ascites. ? Delayed nephrogram on the left of unclear etiology, recommend clinical correlation. ? The findings were discussed with Dr. Forrest on 04/25/2022 at 4:32 PM. The findings were again discussed with JOE Lovelace in the emergency room on 04/25/2022 at 4:53 PM. ? Fleischner guidelines were followed. -1700--ED care transferred to JOE Mirza pending transfer to [facility] MDM - Abdominal Pain MDM Narrative Medical decision making narrative: 61-year-old male with a past medical history of diabetes, DKA, chronic pancreatitis, ETOH abuse, hemorrhagic pancreatic pseudocyst, presenting to ED via EMS from [facility] complaining of lower abdominal pain, nausea , and vomiting since this morning. on exam hypertensive likely from pain, nontoxic, abdomen soft diffusely tender, no rebound, + guarding. Concern for pancreatitis vs appendicitis/diverticulitis vs UTI. plan: Labs, UA, lactic /blood cultures, CT AP, IVF, pain management Differential Diagnosis Differential diagnosis: Likely abdominal pain, acute appendicitis, bowel perforation, diverticulitis, gastroenteritis, gastritis, pancreatitis and small bowel obstruction Medical Records Attestation: I reviewed the patient's medical records. Lab Data Attestation: I reviewed the patient's lab results. Result diagrams: 04/25/22 14:22 04/25/22 14: Labs: Lab Results 04/25/22 04/25/22 04/25/22 Range/Units 14:22 14:22 14:22 WBC 10.5 (4.8-10.8) X10*3/uL RBC 4.58 L (4.60-5.80) X10*6/uL Hgb 12.3 L (14.0-18.0) g/dl Hct 36.5 L (42.0-52.0) % MCV 79.7 L (80.0-98.0) fL MCH 26.9 L (27.0-33.0) pg MCHC 33.7 (31.0-36.0) g/dl RDW 16.3 H (11.0-16.0) % Plt Count 107 L (160-400) X10*3/uL MPV 10.5 (9.4-12.4) fL Immature Gran % (Auto) 0.3 (0.0-0.4) % Neut % (Auto) 88.9 H (45-73) % Lymph % (Auto) 7.1 L (20-40) % Imperial % (Auto) 3.4 (2-11) % Eos % (Auto) 0.1 (0-4) % Baso % (Auto) 0.2 (0-2) % Lymph # (Auto) 0.7 L (1.2-4.9) X10*3/uL Imperial # (Auto) 0.4 (0.1-1.2) X10*3/uL Eos # (Auto) 0.0 (0.0-0.4) X10*3/uL Baso # (Auto) 0.0 (0.0-0.2) X10*3/uL Abs Immat Gran (auto) 0.03 (0.00-0.03) X10*3/uL Absolute Neuts (auto) 9.3 H (2.0-8.3) x10*3/uL Absolute Nucleated RBC 0.000 (0.0-0.012) X10*3/uL Nucleated RBC % (auto) 0.0 (0.0-0.2) /100WBC Sodium 133 L (135-145) mmol/L Potassium 4.3 (3.3-5.1) mmol/L Chloride 93 L (96-108) mmol/L Carbon Dioxide 24 (22-29) mmol/L Anion Gap 20 (12-20) BUN 32 H (9-16) mg/dL Creatinine 1.36 (0.5-1.4) mg/dL Estim Creat Clear Calc 44.6 Estimated GFR 53 Random Glucose 393 H* (60-115) mg/dL Lactic Acid 2.0 (0.5-2.0) mmol/L Calcium 9.5 D (8.4-10.2) mg/dL Magnesium 1.6 (1.6-2.6) mg/dL Total Bilirubin 0.7 (0.0-1.0) mg/dL Direct Bilirubin 0.3 (0.0-0.5) mg/dL AST 12 (5-37) U/L ALT 8 (0-40) U/L Alkaline Phosphatase 88 (39-117) U/L Total Protein 8.5 H D (6.5-8.0) g/dL Albumin 4.5 D (3.5-5.0) g/dL Lipase 84 H (8-78) U/L Urine Color Urine Appearance Urine pH (5.0-9.0) Ur Specific [place] (1.005-1.025) Urine Protein (Neg-Trace) mg/dL Urine Glucose (UA) (Negative) mg/dL Urine Ketones (Negative) mg/dL Urine Blood (Negative) Urine Nitrite (Negative) Ur Leukocyte Esterase (Negative) Urine RBC (0-2) /HPF Urine WBC (0-5) /HPF Ur Squamous Epith Cells (0-2) /HPF Urine Bacteria (None Seen) Hyaline Casts (0-2) /LPF Urine Opiates Screen (Not Detect) Urine Fentanyl Screen (Not Detect) Ur Barbiturates Screen (Not Detect) Ur Phencyclidine Scrn (Not Detect) Ur Amphetamines Screen (Not Detect) U Benzodiazepines Scrn (Not Detect) Urine Cocaine Screen (Not Detect) U Marijuana (THC) Screen (Not Detect) Ethyl Alcohol < 10 mg/dL Acetone, Qual Negative (Negative) 04/25/22 04/25/22 Range/Units 14:24 14:24 WBC (4.8-10.8) X10*3/uL RBC (4.60-5.80) X10*6/uL Hgb (14.0-18.0) g/dl Hct (42.0-52.0) % MCV (80.0-98.0) fL MCH (27.0-33.0) pg MCHC (31.0-36.0) g/dl RDW (11.0-16.0) % Plt Count (160-400) X10*3/uL MPV (9.4-12.4) fL Immature Gran % (Auto) (0.0-0.4) % Neut % (Auto) (45-73) % Lymph % (Auto) (20-40) % Imperial % (Auto) (2-11) % Eos % (Auto) (0-4) % Baso % (Auto) (0-2) % Lymph # (Auto) (1.2-4.9) X10*3/uL Imperial # (Auto) (0.1-1.2) X10*3/uL Eos # (Auto) (0.0-0.4) X10*3/uL Baso # (Auto) (0.0-0.2) X10*3/uL Abs Immat Gran (auto) (0.00-0.03) X10*3/uL Absolute Neuts (auto) (2.0-8.3) x10*3/uL Absolute Nucleated RBC (0.0-0.012) X10*3/uL Nucleated RBC % (auto) (0.0-0.2) /100WBC Sodium (135-145) mmol/L Potassium (3.3-5.1) mmol/L Chloride (96-108) mmol/L Carbon Dioxide (22-29) mmol/L Anion Gap (12-20) BUN (9-16) mg/dL Creatinine (0.5-1.4) mg/dL Estim Creat Clear Calc Estimated GFR Random Glucose (60-115) mg/dL Lactic Acid (0.5-2.0) mmol/L Calcium (8.4-10.2) mg/dL Magnesium (1.6-2.6) mg/dL Total Bilirubin (0.0-1.0) mg/dL Direct Bilirubin (0.0-0.5) mg/dL AST (5-37) U/L ALT (0-40) U/L Alkaline Phosphatase (39-117) U/L Total Protein (6.5-8.0) g/dL Albumin (3.5-5.0) g/dL Lipase (8-78) U/L Urine Color Yellow Urine Appearance Clear Urine pH 5.5 (5.0-9.0) Ur Specific [place] 1.015 (1.005-1.025) Urine Protein Negative (Neg-Trace) mg/dL Urine Glucose (UA) 500 H (Negative) mg/dL Urine Ketones Negative (Negative) mg/dL Urine Blood Moderate (2+) H (Negative) Urine Nitrite Negative (Negative) Ur Leukocyte Esterase Negative (Negative) Urine RBC 6-10 H (0-2) /HPF Urine WBC 0-5 (0-5) /HPF Ur Squamous Epith Cells 0-2 (0-2) /HPF Urine Bacteria None Seen (None Seen) Hyaline Casts 0-2 (0-2) /LPF Urine Opiates Screen Not Detected (Not Detect) Urine Fentanyl Screen Not Detected (Not Detect) Ur Barbiturates Screen Not Detected (Not Detect) Ur Phencyclidine Scrn Not Detected (Not Detect) Ur Amphetamines Screen Not Detected (Not Detect) U Benzodiazepines Scrn Not Detected (Not Detect) Urine Cocaine Screen Not Detected (Not Detect) U Marijuana (THC) Screen Not Detected (Not Detect) Ethyl Alcohol mg/dL Acetone, Qual (Negative) Critical Care Time Critical Care Time Critical Care Time: Yes Total Critical Care Time: 45 Attestation: I have personally provided critical care time exclusive of time spent on sep arately billable procedures. Time includes review of lab data, radiology results, discussion with consultants, and monitoring for potential decompensation. Intervention performed as documented. Discharge Plan Discharge Clinical Impression: Infected pancreatic pseudocyst, Intra-abdominal fluid collection Patient Disposition: Xfer [facility] Transfer Details: [facility] accepting physician Dr. Willoughby Prescriptions: No Action (DME) FreeStyle Lite Strips Strip See Rx Instructions .Route Qty: 100 6RF Rx Instructions: As directed- In Vitro to test blood sugars TID insulin lispro [Humalog KwikPen Insulin] 100 unit/mL Insulin Pen 0 sliding scale dose SUBCUT QIDACHS Protocol: Insulin Correction Scale Less than or equal to 110 ---- Give (units): 0 111 to 150 Give (units): 0 151 to 200 Give (units): 1 201 to 250 Give (units): 2 251 to 300 Give (units): 4 301 to 350 Give (units): 6 Greater than 350 Give (units): 10 Call MD if Blood Glucose > : 350 gabapentin 600 mg Tablet 600 mg PO TID baclofen 10 mg Tablet 10 mg PO BEDTIME escitalopram oxalate 10 mg Tablet 15 mg PO DAILY insulin glargine [Semglee Pen U-100 Insulin] 100 unit/mL (3 mL) Insulin Pen 10 unit SUBCUT BEDTIME multivitamin Tablet 1 tab PO DAILY furosemide 40 mg Tablet 40 mg PO DAILY cyanocobalamin (vitamin B-12) 1,000 mcg Tablet Extended Release 1,000 mcg PO DAILY polyethylene glycol 3350 [Miralax] 17 gram Powder In Packet 17 g PO BID ondansetron HCl 4 mg Tablet 4 mg PO Q8H PRN (Reason: Nausea) spironolactone 100 mg Tablet 100 mg PO DAILY sennosides-docusate sodium [Senna-S] 8.6-50 mg Tablet 2 tab-cap PO BEDTIME thiamine HCl (vitamin B1) 100 mg Tablet 100 mg PO DAILY melatonin 3 mg Tablet 3 mg PO BEDTIME lorazepam 0.5 mg Tablet 0.5 mg PO Q12H PRN (Reason: Anxiety) tamsulosin 0.4 mg Capsule 0.4 mg PO BEDTIME pantoprazole [Protonix] 40 mg Tablet,Delayed Release (Dr/Ec) 40 mg PO DAILY ferrous sulfate 325 mg (65 mg iron) Tablet 325 mg PO BID folic acid 1 mg Tablet 1 mg PO DAILY hydroxyzine HCl 25 mg Tablet 25 mg PO Q8H PRN (Reason: Itching) furosemide 20 mg Tablet 20 mg PO DAILY albuterol sulfate 90 mcg/actuation Hfa Aerosol Inhaler 2 puff INHALATION Q6H PRN (Reason: Wheezing) oxycodone 5 mg Tablet 5 mg PO Q6H PRN (Reason: Pain) quetiapine 50 mg Tablet 50 mg PO DAILY quetiapine 50 mg Tablet 50 mg PO BID cholecalciferol (vitamin D3) 25 mcg (1,000 unit) Tablet 25 mcg PO DAILY lactulose 10 gram/15 mL (15 mL) Solution 30 ml PO Q4H PRN (Reason: Constipation) lactulose 10 gram/15 mL (15 mL) Solution 30 ml PO DAILY oxycodone [OxyContin] 10 mg Tablet,Oral Only,Ext.Rel.12 Hr 10 mg PO BID
[2022-04-25] MEDS: Morphine Sulfate 2 MG/ML CARTRIDGE IVPUSH ×2 (14:08→15:59)
[2022-04-25] MEDS: 0.9 % Sodium Chloride 1,000 ML 999 ML IV ×2 (14:08→16:00)
[2022-04-25] MEDS: ondansetron HCL 4 MG/2 ML VIAL IVPUSH ×2 (14:08→21:00)
[2022-04-25 14:27] LABS: MANUAL DIFF FLAG NO
[2022-04-25 14:31] LABS: Basophils Percent Auto 0.2 % (0-2); Eosinophils Percent Auto 0.1 % (0-4); Hematocrit 36.5 % (42.0-52.0); Hemoglobin 12.3 g/dl (14.0-18.0); Imm Gran Abs Auto 0.03 X10*3/uL (0.00-0.03); Imm Gran Pct Auto 0.3 % (0.0-0.4); Lymphocytes Absolute Auto 0.7 X10*3/uL (1.2-4.9); Lymphocytes Percent Auto 7.1 % (20-40); Mean Corpuscular HGB Conc 33.7 g/dl (31.0-36.0); Mean Corpuscular Hemoglobin 26.9 pg (27.0-33.0); Mean Corpuscular Volume 79.7 fL (80.0-98.0); Mean Platelet Volume 10.5 fL (9.4-12.4); Monocytes Absolute Auto 0.4 X10*3/uL (0.1-1.2); Monocytes Percent Auto 3.4 % (2-11); Neutrophils Absolute Auto 9.3 x10*3/uL (2.0-8.3); Neutrophils Percent Auto 88.9 % (45-73); Platelet Count 107 X10*3/uL (160-400); Red Blood Count 4.58 X10*6/uL (4.60-5.80); Red Cell Distribution Width 16.3 % (11.0-16.0); White Blood Count 10.5 X10*3/uL (4.8-10.8)
[2022-04-25 14:35] LABS: Appearance Urine Clear; Color Urine Yellow; Glucose Urine UA 500 mg/dL (Negative); Leukocyte Esterase Urine Negative (Negative); Nitrite Urine Negative (Negative); PH 5.5 (5.0-9.0); Specific Gravity - Urine 1.015 (1.005-1.025); Urine Blood Moderate (2+) (Negative); Urine Ketones Negative (Negative); Urine Protein Negative (Neg-Trace)
[2022-04-25 14:37] LABS: Bacteria Urine None Seen (None Seen); Hyaline Casts Urine 0-2 /LPF (0-2); Squamous Epithelial Cell Urine 0-2 /HPF (0-2); WBC Urine 0-5 /HPF (0-5)
[2022-04-25 14:50] LABS: Amphetamine Screen Urine Not Detected (Not Detect); Barbiturates, Urine Not Detected (Not Detect); Benzodiazepines Screen Urine Not Detected (Not Detect); Cannabinoid Screen Urine Not Detected (Not Detect); Cocaine Screen Urine Not Detected (Not Detect); Fentanyl, urine Not Detected (Not Detect); Opiate Screen Urine Not Detected (Not Detect); Phencyclidine Screen Urine Not Detected (Not Detect)
[2022-04-25 14:55] LABS: Alanine Aminotransferase 8 U/L (0-40); Albumin Level 4.5 g/dL (3.5-5.0); Alkaline Phosphatase 88 U/L (39-117); Anion Gap 20 (12-20); Aspartate Amino Transferase 12 U/L (5-37); Bilirubin Direct 0.3 mg/dL (0.0-0.5); Bilirubin Total 0.7 mg/dL (0.0-1.0); Blood Urea Nitrogen 32 mg/dL (9-16); Calcium 9.5 mg/dL (8.4-10.2); Carbon Dioxide 24 mmol/L (22-29); Chloride 93 mmol/L (96-108); Creatinine Clr Calc Pharmacy 44.6; Estimated Glomerular Filt Rate 53; Ethanol < 10 mg/dL; Glucose Random 393 mg/dL (60-115); Lipase 84 U/L (8-78); Magnesium 1.6 mg/dL (1.6-2.6); Potassium 4.3 mmol/L (3.3-5.1); Sodium 133 mmol/L (135-145); Total Protein 8.5 g/dL (6.5-8.0)
[2022-04-25 15:05] LABS: Acetone, serum QL Negative (Negative)
[2022-04-25] MEDS: iohexoL 350 MG/ML 100 ML INFUS..BTL IV (15:19)
[2022-04-25 15:25] VITALS: PULSE 72; TEMP 36.4
[2022-04-25 15:59] VITALS: RESP 18
--- NOTE | 2022-04-25 16:43 | PHA.MEDREC ---
Pharmacy Consult ? Medication Reconciliation Pharmacy has completed the medication reconciliation. Patient came from [facility] with a medication list. Yadira Fuentes, HannahD
[2022-04-25] MEDS: Piperacillin Sodium/Tazobactam 4.5 GM in 0.9 % Sodium Chloride 100 ML IV (17:02)
[2022-04-25] MEDS: HYDROmorphone HCl 1 MG/ML SYRINGE IVPUSH (17:11)
[2022-04-25] MEDS: vancomycin HCL 1,500 MG in 0.9 % Sodium Chloride 500 ML 333.33 MG IV (17:34)
--- NOTE | 2022-04-25 17:39 | P.CONGS_ITS ---
History of Present Illness Consult details Consult date: 04/25/22 Narrative: 61M with a long hx of ETOH abuse, pancreatic pseudocyst, gastritis and DM, brought to the ED from the [place] today because of abdominal pain. He describes this as on the upper abdomen. he states this started this morning. He says he has had 8 epsiodes of vomitting. He says that the pain is sharp, severe and constant and says he is tender as well. He denies recent alcohol intake recently. He was in the ED last February 2022 for intoxication after he apparently slipped out of the [place] and had several drinks. He was in the ED last December 2021 for similar pain and had a CT scan suggesting bleeding within the pseudocyst he was tranferred to [facility]. Review of Systems Constitutional: Constitutional: Denies chills and Denies fever(s) Cardiovascular: Cardiovascular: Denies chest pain Respiratory: Respiratory: Denies cough Gastrointestinal: Gastrointestinal: Denies change in bowel habits and Reports vomiting Genitourinary: Genitourinary: Denies difficulty urinating Neurologic: Denies Abnormal speech present and Denies behavioral changes Psychiatric: Psychiatric: Denies behavioral changes [facility] Past Medical History Medical History (Updated 04/26/22 @ 00:04 by Background Daemon) Acidosis, lactic Acute dehydration Acute hyperglycemia Alcohol abuse Alcohol abuse Alcohol dependence with withdrawal Alcohol use disorder, severe, dependence Alcoholic gastritis Attention deficit disorder Degenerative disc disease, cervical Depression Diabetes mellitus Dyslipidemia Head injury History of substance abuse Hypomagnesemia Hypotestosteronism Osteoarthritis of right hand Pancreatic cyst Pancreatitis Prolonged QT interval Pseudocyst of pancreas Thrombocytopenia Vomiting Family History Family History Father Cancer Mother Cancer Diabetes Surgical History Surgical History History of surgery Hx of colonoscopy Social History Social History Household Members: None Housing: Apartment Do you presently have visiting nurse or other home services: No Unable to assess alcohol history related to: Refusing to respond Alcohol intake: former Patient Tobacco Use Status: Current everyday Tobacco user Tobacco use type: Cigarette Cigarette Packs Per Day: 2 Cigarettes Per Day: 40.0 Substance Use Type: Former Substance User Advance Directives: Yes Advance Directives on File: Yes Advance Directives Date on File: 03/05/21 service: No Current occupational status: unemployed and disabled Current occupation: Right Handed Meds Allergies Allergy/AdvReac Type Severity Reaction Status Date / Time No Known Drug Allergies Allergy Unknown Verified 04/04/22 22:40 Active Medications: Current Medications Vancomycin HCl 1,500 mg/ (Sodium Chloride) 500 mls @ 333.333 mls/hr IV ONCE ONE Stop: 04/25/22 18:18 Last Admin: 04/25/22 17:34 Dose: 333.33 mls/hr Pharmacy Consult (Consult Rx Vancomycin Dosing) 1 each MISCELLANE DAILY PRN PRN Reason: Consult order Home Medications Medication Instructions Recorded Confirmed Last Taken Type insulin lispro 100 unit/mL 0 sliding scale dose subcut QIDACHS 04/01/21 04/25/22 05/26/21 History subcutaneous pen (Humalog KwikPen (U-100) Insulin) baclofen 10 mg tablet 10 mg PO BEDTIME 01/17/22 04/25/22 Unknown History escitalopram oxalate 10 mg tablet 15 mg PO DAILY 01/17/22 04/25/22 Unknown Hi story gabapentin 600 mg tablet 600 mg PO TID 01/17/22 04/25/22 Unknown History insulin glargine 100 unit/mL (3 10 unit subcut BEDTIME 01/17/22 04/25/22 Unknown History mL) subcutaneous pen albuterol sulfate 90 mcg/actuation 2 puff inhalation Q6H PRN Wheezing 04/25/22 04/25/22 Unknown History aerosol inhaler cholecalciferol (vitamin D3) 25 25 mcg PO DAILY 04/25/22 04/25/22 Unknown History mcg (1,000 unit) tablet cyanocobalamin (vitamin B-12) 1,000 mcg PO DAILY 04/25/22 04/25/22 Unknown History 1,000 mcg tablet,extended release ferrous sulfate 325 mg (65 mg 325 mg PO BID 04/25/22 04/25/22 Unknown History iron) tablet folic acid 1 mg tablet 1 mg PO DAILY 04/25/22 04/25/22 Unknown History furosemide 20 mg tablet 20 mg PO DAILY 04/25/22 04/25/22 Unknown History furosemide 40 mg tablet 40 mg PO DAILY 04/25/22 04/25/22 Unknown History hydroxyzine HCl 25 mg tablet 25 mg PO Q8H PRN Itching 04/25/22 04/25/22 Unknown History lactulose 10 gram/15 mL (15 mL) 30 ml PO DAILY 04/25/22 04/25/22 Unknown History oral solution lactulose 10 gram/15 mL (15 mL) 30 ml PO Q4H PRN Constipation 04/25/22 04/25/22 Unknown History oral solution lorazepam 0.5 mg tablet 0.5 mg PO Q12H PRN Anxiety 04/25/22 04/25/22 Unknown History melatonin 3 mg tablet 3 mg PO BEDTIME 04/25/22 04/25/22 Unknown History multivitamin 1 tab PO DAILY 04/25/22 04/25/22 Unknown History ondansetron HCl 4 mg tablet 4 mg PO Q8H PRN Nausea 04/25/22 04/25/22 Unknown History oxycodone 10 mg tablet,crush 10 mg PO BID 04/25/22 04/25/22 Unknown History resistant,extended release 12 hr (OxyContin) oxycodone 5 mg tablet 5 mg PO Q6H PRN Pain 04/25/22 04/25/22 Unknown History pantoprazole 40 mg tablet,delayed 40 mg PO DAILY 04/25/22 04/25/22 Unknown History release (Protonix) polyethylene glycol 3350 17 gram 17 g PO BID 04/25/22 04/25/22 Unknown History oral powder packet (Miralax) quetiapine 50 mg tablet 50 mg PO BID 04/25/22 04/25/22 Unknown History quetiapine 50 mg tablet 50 mg PO DAILY 04/25/22 04/25/22 Unknown History sennosides 8.6 mg-docusate sodium 2 tab-cap PO BEDTIME 04/25/22 04/25/22 Unknown History 50 mg tablet (Senna-S) spironolactone 100 mg tablet 100 mg PO DAILY 04/25/22 04/25/22 Unknown History tamsulosin 0.4 mg capsule 0.4 mg PO BEDTIME 04/25/22 04/25/22 Unknown History thiamine HCl (vitamin B1) 100 mg 100 mg PO DAILY 04/25/22 04/25/22 Unknown History tablet Physical Exam Vital Signs: Vital Signs: Last Vital Signs Temp 97.6 F 04/25/22 15:25 Pulse 72 04/25/22 15:25 Resp 18 04/25/22 15:59 BP 152/109 H 04/25/22 13:01 Pulse Ox 97 04/25/22 13:01 O2 Del Method 04/25/22 13:01 BMI result Body Mass Index 25.6 Const: Other: c/o upper abdl pain General: no acute distress Resp: Effort & Inspection: normal respiratory effort Cardio: Rate: regular rate GI: Other: tender on the upper abdomen, mostly epigastric, voluntary guarding Neuro: Speech: No Abnormal speech present Extrem: General: Yes capillary refill normal Results Labs Result diagrams: 04/25/22 14:22 04/25/22 14:22 Labs: Abnormal lab results 04/25/22 04/25/22 04/25/22 Range/Units 14: 14: 14:24 RBC 4.58 L (4.60-5.80) X10*6/uL Hgb 12.3 L (14.0-18.0) g/dl Hct 36.5 L (42.0-52.0) % MCV 79.7 L (80.0-98.0) fL MCH 26.9 L (27.0-33.0) pg RDW 16.3 H (11.0-16.0) % Plt Count 107 L (160-400) X10*3/uL Neut % (Auto) 88.9 H (45-73) % Lymph % (Auto) 7.1 L (20-40) % Lymph # (Auto) 0.7 L (1.2-4.9) X10*3/uL Absolute Neuts (auto) 9.3 H (2.0-8.3) x10*3/uL Sodium 133 L (135-145) mmol/L Chloride 93 L (96-108) mmol/L BUN 32 H (9-16) mg/dL Random Glucose 393 H* (60-115) mg/dL Total Protein 8.5 H D (6.5-8.0) g/dL Lipase 84 H (8-78) U/L Urine Glucose (UA) 500 H (Negative) mg/dL Urine Blood Moderate (2+) H (Negative) Urine RBC 6-10 H (0-2) /HPF Short CBC 04/25/22 Range/Units 14:22 WBC 10.5 (4.8-10.8) X10*3/uL Hgb 12.3 L (14.0-18.0) g/dl Hct 36.5 L (42.0-52.0) % Plt Count 107 L (160-400) X10*3/uL BMP 04/25/22 14:22 Sodium 133 L Potassium 4.3 Chloride 93 L Carbon Dioxide 24 BUN 32 H Creatinine 1.36 Calcium 9.5 D Liver Function 04/25/22 Range/Units 14:22 Total Bilirubin 0.7 (0.0-1.0) mg/dL Direct Bilirubin 0.3 (0.0-0.5) mg/dL AST 12 (5-37) U/L ALT 8 (0-40) U/L Alkaline Phosphatase 88 (39-117) U/L Albumin 4.5 D (3.5-5.0) g/dL Urine 04/25/22 Range/Units 14:24 Urine Color Yellow Urine Appearance Clear Urine pH 5.5 (5.0-9.0) Ur Specific Siren 1.015 (1.005-1.025) Urine Protein Negative (Neg-Trace) mg/dL Urine Glucose (UA) 500 H (Negative) mg/dL All other labs normal. Assessment and Plan (1) Pseudocyst of pancreas: Status: Acute He presented to the ED with upper abdl pain. He has a long hx of ETOH abuse, pseudocysts and pancreatitis. His CT scan shows a large pseudocyst, intimately abutting the posterior stomach wall with layering hyperdensities within the pseudocyst concerning for bleeding. This may explain his pain in the upper abdomen. There are additional findings of question of interloop abscesses as well in the lower abdomen. He has increasing ascites. In view of the concern for bleeding within the ppesudocyst, it may be best for h im to be transferred for possible need for Interventional Radiology. He otherwise is hemodynamically stable and is Hg is within normal. Procedures Date of Service Date of Service: 04/25/22
[2022-04-25 18:04] LABS: COVID-19 Test Negative (Negative)
--- NOTE | 2022-04-25 18:20 | PC.NURSE ---
Provider approached asking that we transfer the pt. [facility] said no they are only taking stemi stroke trama ob pedi only. Provider is aware and asked we place a call to [facility] at [address] [place] said no with no explanation. Provider aware and asked we call [facility] said no due to [facility] Status. Provider then asked we call [facility]. [facility] was called at [phone] [facility] accepted pt ed to ed transfer. A call was placed to [facility] transport team to see if they could possible take the transfer due to [facility] not having an architecture intern till 7pm, [facility] said they cannot do the transfer due to their ambulance company doing 911s and behind on all calls. [facility] was called at [phone] I asked about transferring ALS to [facility] they told me to give them a call at 1830 to get a eta for the ALS truck
--- NOTE | 2022-04-25 18:35 | PC.NURSE ---
call was placed to [facility] at 1830 Cons[facility]o mann [facility] told me to call back at 1900 to find an ETA to [facility]
--- NOTE | 2022-04-25 20:23 | PC.NURSE ---
This US/Pct called [facility] at 1903 for an update on a stat ALS transfer to [facility] ER to ER,spoke to Chicho he stated he is working on it and will call back. AT 1946 Chicho from [facility] called and stated he was not able to give me a time frame on when they would be able to transport patient, he will try to pass Dr. Khoury aware.
[2022-04-25] MEDS: HYDROmorphone HCl 0.5 MG/0.5 ML SYRINGE IVPUSH (21:00)
--- NOTE | 2022-04-25 21:18 | PC.NURSE ---
At 2113 [facility] arrived to transport patient to [facility].
== END 2022-04-25 21:30 | disposition short-term general hospital (02) ==
PROVIDERS: Physician Assistant; Emergency Provider Student in an Organized Health Care Education/Training Program; PCP Internal Medicine
DX: K86.3 Pseudocyst of pancreas (principal); R18.8 Other ascites; R10.30 Lower abdominal pain, unspecified; R11.2 Nausea with vomiting, unspecified; Z20.822 Contact with and (suspected) exposure to COVID-19; E11.9 Type 2 diabetes mellitus without complications; E78.5 Hyperlipidemia, unspecified; F17.210 Nicotine dependence, cigarettes, uncomplicated; Z79.4 Long term (current) use of insulin; Z79.899 Other long term (current) drug therapy
CPT/HCPCS: 36415; 74177; 80048; 80076; 80307; 81001; 82009; 82077; 83605; 83690; 83735; 85025; 87040; 87635; 96361; 96365; 96374; 96375; 96376; 99285; J1170; J2270; J2405; J2543; J3370; Q9967

== ENCOUNTER 2023-01-07 23:35 | Observation (INO) | payer MEDICAID, SELFPAY ==
--- NOTE | ~2023-01-07 | CT_ITS ---
EXAMINATION: NONCONTRAST HEAD CT NONCONTRAST CERVICAL SPINE CT INDICATION INFORMATION: Fall. Altered mental status. COMPARISON: 06/29/2021 and 10/04/2019 TECHNIQUE: Separate noncontrast CT examinations of the head and cervical spine were performed. Coronal and sagittal images were created for each examination at the technologist workstation. This CT examination was performed using dose optimization techniques as appropriate, variously including the following: *Automated exposure control *Adjustment of mA and/or kV according to patient size (this includes techniques or standardized protocols for targeted exams where dose is matched to indication/reason for exam; i.e. extremities or head) *Use of iterative reconstruction technique DLP: 1118 mGy-cm FINDINGS: Head: There is no evidence of acute intracranial hemorrhage or territorial infarction. No abnormal mass effect or midline shift is seen. James to white matter differentiation is well preserved. No extra-axial fluid collections are identified. No hydrocephalus. No significant volume loss. There is no abnormal attenuation within the brain parenchyma. Thin right frontal and left parietal subgaleal hematomas. Calvarium and skull base intact. The mastoid air cells and visualized portions of the paranasal sinuses are well aerated. Cervical spine: No acute fracture or traumatic malalignment. Small endplate ossified at C5-C6 and C6-C7 with near complete obliteration of the disc space at C5-C6. Moderate facet arthropathy in the right at C2-C3, and on the left from C2-C5. Vertebral body heights maintained. No prevertebral soft tissue swelling. No significant change in size or appearance of the large calcified right thyroid nodule measuring up to 6.3 cm craniocaudally. Paraspinal soft tissues otherwise unremarkable. Dependent secretions within the upper thoracic trachea. Imaged lung apices are clear. CT/CT cervical spine wo IV con IMPRESSION: * No acute intracranial findings. Thin right frontal and left parietal subgaleal hematomas. * No acute fracture or traumatic malalignment of the cervical spine. * Large right thyroid nodule, without significant change in size since September 2019. Per report, this has previously been biopsied. If not, ultrasound guided FNA recommended.
--- NOTE | ~2023-01-07 | CT_ITS ---
EXAMINATION: CT ABDOMEN AND PELVIS WITHOUT CONTRAST CLINICAL INFORMATION: Abdominal pain COMPARISON: 04/25/2022 TECHNIQUE: Multidetector volumetric imaging was performed from the superior aspect of the liver through the pubic symphysis. Sagittal and coronal reformatted images were obtained on the technologist's workstation. This CT examination was performed using dose optimization techniques as appropriate, variously including the following: *Automated exposure control *Adjustment of mA and/or kV according to patient size (this includes techniques or standardized protocols for targeted exams where dose is matched to indication/reason for exam; i.e. extremities or head) *Use of iterative reconstruction technique DLP: 554 mGy-cm FINDINGS: LUNG BASES: The visualized lung bases are unremarkable. LIVER, GALLBLADDER, AND BILIARY TREE: The liver is normal in size, shape, and attenuation. No focal hepatic lesion or biliary ductal dilatation is present. Cholelithiasis. Trace perihepatic ascites. PANCREAS: Atrophic with coarse calcifications scattered throughout the pancreatic parenchyma. Interval decrease in size of a known pseudocyst posterior to the pancreatic tail measuring 7.7 x 6.0 cm transaxially on the current exam, previously 8.4 x 7.0 cm. No pancreatic inflammation on the current exam. SPLEEN: Borderline prominent but similar in size to prior. Trace perisplenic fluid. ADRENAL GLANDS: Unremarkable. KIDNEYS AND URETERS: The kidneys are normal in size, shape, and attenuation. No hydronephrosis, hydroureter, or calculi seen. No perinephric stranding. BLADDER: Unremarkable. GASTROINTESTINAL TRACT: No intestinal obstruction or inflammation. Interval decrease in size of the small bowel mesenteric fluid collections including the collection in the right mesentery now measuring 6.5 x 4.1 cm transaxially, previously 7.4 x 4.8 cm, and in the left mesentery measuring 3.5 x 3.5 cm, previously 4.6 x 3.9 cm. ABDOMINAL WALL: No significant hernia is appreciated. LYMPH NODES: Normal. VASCULAR: Embolization coil material present within the splenic artery. PELVIC VISCERA: Unremarkable. OSSEOUS STRUCTURES: No acute or suspicious osseous abnormalities. CT/CT abdomen pelvis wo IV con IMPRESSION: * Interval decrease in size of the known pseudocyst posterior to the pancreatic tail, as well as the small bowel mesenteric fluid collections, likely reflecting distant pseudocysts. * Pancreatic atrophy with diffuse coarse calcifications throughout the pancreas compatible with chronic pancreatitis. No evidence of acute pancreatitis on the current exam. * Cholelithiasis. * Trace perihepatic and perisplenic ascites.
--- NOTE | ~2023-01-07 | XR_ITS ---
EXAMINATION: XR CHEST CLINICAL INFORMATION: Fall COMPARISON: 06/24/2021 TECHNIQUE: Frontal view of the chest was obtained. FINDINGS: Normal symmetric lung volumes. No parenchymal consolidation. No pleural effusion. No pneumothorax. Cardiomediastinal silhouette and pulmonary vascularity are within normal limits. No acute osseous abnormalities. XR/XR chest 1V IMPRESSION: Clear lungs
[2023-01-07 23:40] VITALS: BP 119/63; PULSE 70; O2SAT 100
[2023-01-07 23:44] VITALS: BP 92/60; PULSE 79; RESP 16; TEMP 36.2; O2SAT 94; BMI 27.2
--- NOTE | 2023-01-07 23:48 | ECG_ITS ---
Test Reason : fall Blood Pressure : / mmHG Vent. Rate : 071 BPM Atrial Rate : 071 BPM P-R Int : 198 ms QRS Dur : 086 ms QT Int : 414 ms P-R-T Axes : 052 038 035 degrees QTc Int : 449 ms Normal sinus rhythm Normal ECG When compared with ECG of 06-JUL-2021 22:51, No significant change was found Referred By: Generic ED Physician Electronically Signed By:Paolo Montaño
[2023-01-08] VITALS (15 sets, daily range): BP systolic 86–125; BP diastolic 50–78; PULSE 52–77; RESP 12–20; TEMP 36.3–37.1; O2SAT 95–100
[2023-01-08 00:08] LABS: MANUAL DIFF FLAG NO
[2023-01-08 00:09] LABS: Basophils Percent Auto 0.4 % (0-2); Eosinophils Absolute Auto 0.4 X10*3/uL (0.0-0.4); Eosinophils Percent Auto 3.7 % (0-4); Hematocrit 30.9 % (42.0-52.0); Hemoglobin 10.5 g/dl (14.0-18.0); Imm Gran Abs Auto 0.04 X10*3/uL (0.00-0.03); Imm Gran Pct Auto 0.4 % (0.0-0.4); Lymphocytes Absolute Auto 1.8 X10*3/uL (1.2-4.9); Lymphocytes Percent Auto 17.2 % (20-40); Mean Corpuscular Hemoglobin 31.7 pg (27.0-33.0); Mean Corpuscular Volume 93.4 fL (80.0-98.0); Mean Platelet Volume 10.2 fL (9.4-12.4); Monocytes Percent Auto 9.4 % (2-11); Neutrophils Absolute Auto 7.1 x10*3/uL (2.0-8.3); Neutrophils Percent Auto 68.9 % (45-73); Platelet Count 103 X10*3/uL (160-400); Red Blood Count 3.31 X10*6/uL (4.60-5.80); Red Cell Distribution Width 13.5 % (11.0-16.0); White Blood Count 10.3 X10*3/uL (4.8-10.8)
--- NOTE | 2023-01-08 00:18 | MHC.EDTECH ---
This Tech assumed position of this patient upon arrival. EKG done and given in to provider. Pt hooked up to bottle gauger and labs done and sent for processing. Patient changed assisted by Tech Felisha Darden. Pt belonginf itemized
[2023-01-08 00:22] LABS: Ethanol < 10 mg/dL
[2023-01-08 00:24] LABS: Anion Gap 14 (12-20); Blood Urea Nitrogen 43 mg/dL (9-16); Calcium 9.3 mg/dL (8.4-10.2); Carbon Dioxide 25 mmol/L (22-29); Chloride 101 mmol/L (96-108); Creatinine Clr Calc Pharmacy 33.6; Estimated Glomerular Filt Rate 30; Glucose Random 152 mg/dL (60-115); Potassium 4.2 mmol/L (3.3-5.1); Sodium 136 mmol/L (135-145)
[2023-01-08 00:32] LABS: Troponin-I High Sensitivity 2.9 ng/L (<3.5-35.0)
[2023-01-08] MEDS: 0.9 % Sodium Chloride 1,000 ML 999 ML IV ×2 (01:25→03:05)
--- NOTE | 2023-01-08 02:15 | ED.GENADULT ---
HPI - General Adult General Chief complaint: Fall Stated complaint: Repeated falls, etoh, diarrhea Time Seen by Provider: 01/08/23 00:14 History of Present Illness HPI narrative: Patient is 62 years old with a history of diabetes, presented today with having episodes of passing out. Patient has been having decreased p.o. intake. Had an episode of passing out 2 days ago. Denies any chest pain or diaphoresis. No fever no chills. Calvin very weak. Sent in for further evaluation. Related Data Home Medications Medication Instructions Recorded Confirmed insulin lispro 100 unit/mL 0 sliding scale dose subcut QIDACHS 04/01/21 04/25/22 subcutaneous pen (Humalog KwikPen (U-100) Insulin) baclofen 10 mg tablet 10 mg PO BEDTIME 01/17/22 04/25/22 escitalopram oxalate 10 mg tablet 15 mg PO DAILY 01/17/22 04/25/22 gabapentin 600 mg tablet 600 mg PO TID 01/17/22 04/25/22 insulin glargine 100 unit/mL (3 10 unit subcut BEDTIME 01/17/22 04/25/22 mL) subcutaneous pen albuterol sulfate 90 mcg/actuation 2 puff inhalation Q6H PRN Wheezing 04/25/22 04/25/22 aerosol inhaler cholecalciferol (vitamin D3) 25 25 mcg PO DAILY 04/25/22 04/25/22 mcg (1,000 unit) tablet cyanocobalamin (vitamin B-12) 1,000 mcg PO DAILY 04/25/22 04/25/22 1,000 mcg tablet,extended release ferrous sulfate 325 mg (65 mg 325 mg PO BID 04/25/22 04/25/22 iron) tablet folic acid 1 mg tablet 1 mg PO DAILY 04/25/22 04/25/22 furosemide 20 mg tablet 20 mg PO DAILY 04/25/22 04/25/22 furosemide 40 mg tablet 40 mg PO DAILY 04/25/22 04/25/22 hydroxyzine HCl 25 mg tablet 25 mg PO Q8H PRN Itching 04/25/22 04/25/22 lactulose 10 gram/15 mL (15 mL) 30 ml PO DAILY 04/25/22 04/25/22 oral solution lactulose 10 gram/15 mL (15 mL) 30 ml PO Q4H PRN Constipation 04/25/22 04/25/22 oral solution lorazepam 0.5 mg tablet 0.5 mg PO Q12H PRN Anxiety 04/25/22 04/25/22 melatonin 3 mg tablet 3 mg PO BEDTIME 04/25/22 04/25/22 multivitamin 1 tab PO DAILY 04/25/22 04/25/22 ondansetron HCl 4 mg tablet 4 mg PO Q8H PRN Nausea 04/25/22 04/25/22 oxycodone 10 mg tablet,crush 10 mg PO BID 04/25/22 04/25/22 resistant,extended release 12 hr (OxyContin) oxycodone 5 mg tablet 5 mg PO Q6H PRN Pain 04/25/22 04/25/22 pantoprazole 40 mg tablet,delayed 40 mg PO DAILY 04/25/22 04/25/22 release (Protonix) polyethylene glycol 3350 17 gram 17 g PO BID 04/25/22 04/25/22 oral powder packet (Miralax) quetiapine 50 mg tablet 50 mg PO BID 04/25/22 04/25/22 quetiapine 50 mg tablet 50 mg PO DAILY 04/25/22 04/25/22 sennosides 8.6 mg-docusate sodium 2 tab-cap PO BEDTIME 04/25/22 04/25/22 50 mg tablet (Senna-S) spironolactone 100 mg tablet 100 mg PO DAILY 04/25/22 04/25/22 tamsulosin 0.4 mg capsule 0.4 mg PO BEDTIME 04/25/22 04/25/22 thiamine HCl (vitamin B1) 100 mg 100 mg PO DAILY 04/25/22 04/25/22 tablet Previous Rx's Medication Instructions Recorded blood sugar diagnostic (FreeStyle #100 ea 06/23/21 Lite Strips) Allergies Allergy/AdvReac Type Severity Reaction Status Date / Time No Known Drug Allergies Allergy Unknown Verified 01/07/23 23:49 Review of Systems Review of Systems: Patient is a poor historian and was unable to give details PMFSH Past Medical History Attestation statement: The following information was validated with the patient. Medical History Acidosis, lactic Acute dehydration Acute hyperglycemia Alcohol abuse Alcohol abuse Alcohol dependence with withdrawal Alcohol use disorder, severe, dependence Alcoholic gastritis Attention deficit disorder Degenerative disc disease, cervical Depression Diabetes mellitus Dyslipidemia Head injury History of substance abuse Hypomagnesemia Hypotestosteronism Osteoarthritis of right hand Pancreatic cyst Pancreatitis Prolonged QT interval Pseudocyst of pancreas Thrombocytopenia Vomiting Surgical History History of surgery Hx of colonoscopy Family History Family History Father Cancer Mother Cancer Diabetes Social History Social History Household Members: None Housing: Apartment Do you presently have visiting nurse or other home services: No Unable to assess alcohol history related to: Refusing to respond Alcohol intake: former Patient Tobacco Use Status: Current everyday Tobacco user Tobacco use type: Cigarette Cigarette Packs Per Day: 2 Cigarettes Per Day: 40.0 Substance Use Type: Former Substance User Advance Directives: Yes Advance Directives on File: Yes Advance Directives Date on File: 03/05/21 service: No Current occupational status: unemployed and disabled Current occupation: Right Handed Physical Exam ED Vital Signs: Vital Signs - 24 hr 01/07/23 23:44 01/08/23 00:56 Temperature 97.2 F Pulse Rate 79 65 Respiratory Rate 16 14 Blood Pressure 92/60 110/70 Pulse Oximetry 94 98 Oxygen Delivery Method Room Air Room Air BMI result Body Mass Index 27.2 Appearance: Lethargic slow to respond to questions Eyes: Pupils equal, round and reactive to light. ENT: Pharynx normal. Neck: Normal inspection. Neck supple. No lymph nodes noted. No crepitus CVS: Normal heart rate and rhythm. Pulses normal. Normal S1 and S2 Respiratory: No respiratory distress. Breath sounds normal. No Wheezing. No rales Abdomen: Soft and nontender. No rigidity. No distention. good BS x4 Skin: Skin warm and dry. Normal skin color. Normal skin turgor. Extremities: No lower extremity edema. Neurovascular intact to all extremities. No Lacerations. No Rash Neuro: Oriented X 3. No motor deficit. No sensory deficit. Moving all extermities. No slurred speech Medical Decision Making Medical Decision Making MDM Narrative: Patient's labs showed a elevated BUN and creatinine consistent with dehydration. His hemoglobin is baseline at approximately 10. Patient's cardiac enzyme was negative. My interpretation patient's EKG shows sinus pattern heart rate is 80 MO QRS QT within normal limits there is no acute ST segment elevation. CT scan of the head and C-spine were done. CT scan of the head was grossly negative for any acute evidence of bleeding. No fracture. No mass. Patient's case discussed with the hospitalist team for admission. Differential Diagnosis Differential Diagnoses: The differential diagnosis associated with the presentation includes Dehydration near-syncope/syncope, head injury, intracranial bleed Consult Healthcare Provider Management of the patient was discussed with: Hospitalist Lab Data MDM Lab Attestation statement: I reviewed the patient's lab results. 01/08/23 00:04 01/08/23 00:04 Labs: Lab Results 01/08/23 01/08/23 01/08/23 Range/Units 00:04 00:04 00:04 WBC 10.3 (4.8-10.8) X10*3/uL RBC 3.31 L D (4.60-5.80) X10*6/uL Hgb 10.5 L (14.0-18.0) g/dl Hct 30.9 L (42.0-52.0) % MCV 93.4 (80.0-98.0) fL MCH 31.7 (27.0-33.0) pg MCHC 34.0 (31.0-36.0) g/dl RDW 13.5 (11.0-16.0) % Plt Count 103 L (160-400) X10*3/uL MPV 10.2 (9.4-12.4) fL Immature Gran % (Auto) 0.4 (0.0-0.4) % Neut % (Auto) 68.9 (45-73) % Lymph % (Auto) 17.2 L (20-40) % [place] % (Auto) 9.4 (2-11) % Eos % (Auto) 3.7 (0-4) % Baso % (Auto) 0.4 (0-2) % Lymph # (Auto) 1.8 (1.2-4.9) X10*3/uL [place] # (Auto) 1.0 (0.1-1.2) X10*3/uL Eos # (Auto) 0.4 (0.0-0.4) X10*3/uL Baso # (Auto) 0.0 (0.0-0.2) X10*3/uL Abs Immat Gran (auto) 0.04 H (0.00-0.03) X10*3/uL Absolute Neuts (auto) 7.1 (2.0-8.3) x10*3/uL Absolute Nucleated RBC 0.000 (0.0-0.012) X10*3/uL Nucleated RBC % (auto) 0.0 (0.0-0.2) /100WBC Sodium 136 (135-145) mmol/L Potassium 4.2 (3.3-5.1) mmol/L Chloride 101 (96-108) mmol/L Carbon Dioxide 25 (22-29) mmol/L Anion Gap 14 (12-20) BUN 43 H (9-16) mg/dL Creatinine 2.23 H (0.5-1.4) mg/dL Estim Creat Clear Calc 33.6 Estimated GFR 30 Random Glucose 152 H (60-115) mg/dL Calcium 9.3 (8.4-10.2) mg/dL Troponin I High Sens 2.9 (<3.5-35.0) ng/L Ethyl Alcohol mg/dL 01/08/23 Range/Units 00:04 WBC (4.8-10.8) X10*3/uL RBC (4.60-5.80) X10*6/uL Hgb (14.0-18.0) g/dl Hct (42.0-52.0) % MCV (80.0-98.0) fL MCH (27.0-33.0) pg MCHC (31.0-36.0) g/dl RDW (11.0-16.0) % Plt Count (160-400) X10*3/uL MPV (9.4-12.4) fL Immature Gran % (Auto) (0.0-0.4) % Neut % (Auto) (45-73) % Lymph % (Auto) (20-40) % [place] % (Auto) (2-11) % Eos % (Auto) (0-4) % Baso % (Auto) (0-2) % Lymph # (Auto) (1.2-4.9) X10*3/uL [place] # (Auto) (0.1-1.2) X10*3/uL Eos # (Auto) (0.0-0.4) X10*3/uL Baso # (Auto) (0.0-0.2) X10*3/uL Abs Immat Gran (auto) (0.00-0.03) X10*3/uL Absolute Neuts (auto) (2.0-8.3) x10*3/uL Absolute Nucleated RBC (0.0-0.012) X10*3/uL Nucleated RBC % (auto) (0.0-0.2) /100WBC Sodium (135-145) mmol/L Potassium (3.3-5.1) mmol/L Chloride (96-108) mmol/L Carbon Dioxide (22-29) mmol/L Anion Gap (12-20) BUN (9-16) mg/dL Creatinine (0.5-1.4) mg/dL Estim Creat Clear Calc Estimated GFR Random Glucose (60-115) mg/dL Calcium (8.4-10.2) mg/dL Troponin I High Sens (<3.5-35.0) ng/L Ethyl Alcohol < 10 mg/dL Independent Interpretation I performed an independent interpretation of an: EKG Interpretation: Sinus heart rate is 80 MO QRS QTC within normal limits there is no acute ST segment elevation External Record Review External record reviewed: Inpatient record Discharge Plan Discharge Clinical Impression: Diabetes mellitus, Acute dehydration, Acute renal failure Patient Disposition: Admitted As Inpatient Prescriptions: No Action (DME) FreeStyle Lite Strips Strip See Rx Instructions .Route Qty: 100 6RF Rx Instructions: As directed- In Vitro to test blood sugars TID insulin lispro [Humalog KwikPen Insulin] 100 unit/mL Insulin Pen 0 sliding scale dose SUBCUT QIDACHS Protocol: Insulin Correction Scale Less than or equal to 110 ---- Give (units): 0 111 to 150 Give (units): 0 151 to 200 Give (units): 1 201 to 250 Give (units): 2 251 to 300 Give (units): 4 301 to 350 Give (units): 6 Greater than 350 Give (units): 10 Call MD if Blood Glucose > : 350 gabapentin 600 mg Tablet 600 mg PO TID baclofen 10 mg Tablet 10 mg PO BEDTIME escitalopram oxalate 10 mg Tablet 15 mg PO DAILY insulin glargine [Semglee Pen U-100 Insulin] 100 unit/mL (3 mL) Insulin Pen 10 unit SUBCUT BEDTIME multivitamin Tablet 1 tab PO DAILY furosemide 40 mg Tablet 40 mg PO DAILY cyanocobalamin (vitamin B-12) 1,000 mcg Tablet Extended Release 1,000 mcg PO DAILY polyethylene glycol 3350 [Miralax] 17 gram Powder In Packet 17 g PO BID ondansetron HCl 4 mg Tablet 4 mg PO Q8H PRN (Reason: Nausea) spironolactone 100 mg Tablet 100 mg PO DAILY sennosides-docusate sodium [Senna-S] 8.6-50 mg Tablet 2 tab-cap PO BEDTIME thiamine HCl (vitamin B1) 100 mg Tablet 100 mg PO DAILY melatonin 3 mg Tablet 3 mg PO BEDTIME lorazepam 0.5 mg Tablet 0.5 mg PO Q12H PRN (Reason: Anxiety) tamsulosin 0.4 mg Capsule 0.4 mg PO BEDTIME pantoprazole [Protonix] 40 mg Tablet,Delayed Release (Dr/Ec) 40 mg PO DAILY ferrous sulfate 325 mg (65 mg iron) Tablet 325 mg PO BID folic acid 1 mg Tablet 1 mg PO DAILY hydroxyzine HCl 25 mg Tablet 25 mg PO Q8H PRN (Reason: Itching) furosemide 20 mg Tablet 20 mg PO DAILY albuterol sulfate 90 mcg/actuation Hfa Aerosol Inhaler 2 puff INHALATION Q6H PRN (Reason: Wheezing) oxycodone 5 mg Tablet 5 mg PO Q6H PRN (Reason: Pain) quetiapine 50 mg Tablet 50 mg PO DAILY quetiapine 50 mg Tablet 50 mg PO BID cholecalciferol (vitamin D3) 25 mcg (1,000 unit) Tablet 25 mcg PO DAILY lactulose 10 gram/15 mL (15 mL) Solution 30 ml PO Q4H PRN (Reason: Constipation) lactulose 10 gram/15 mL (15 mL) Solution 30 ml PO DAILY oxycodone [OxyContin] 10 mg Tablet,Oral Only,Ext.Rel.12 Hr 10 mg PO BID
[2023-01-08 02:50] LABS: Appearance Urine Clear; Color Urine Yellow; Glucose Urine UA Negative (Negative); Leukocyte Esterase Urine Negative (Negative); Nitrite Urine Negative (Negative); PH 5.5 (5.0-9.0); Urine Blood Negative (Negative); Urine Ketones Negative (Negative); Urine Protein Negative (Neg-Trace)
[2023-01-08 02:52] LABS: Bacteria Urine None Seen (None Seen); Hyaline Casts Urine 0-2 /LPF (0-2); RBC Urine 0-2 /HPF (0-2); Squamous Epithelial Cell Urine 0-2 /HPF (0-2); WBC Urine 0-5 /HPF (0-5)
--- NOTE | 2023-01-08 02:59 | MHC.EDTECH ---
Unable to obtain Orthostatic Vitals patient is not able to sit or stand at the moment. Dr. George made aware and MELISSA Eugene
[2023-01-08] MEDS: Heparin Sodium,Porcine 5,000 UNIT/ML VIAL 5000 UNIT SUBCUT ×2 (03:05→14:58)
[2023-01-08] MEDS: Lactated Ringers 1,000 ML 100 ML IVCONT ×2 (03:06→19:44)
--- NOTE | 2023-01-08 04:08 | PC.NURSE ---
pt placed in trendelenburg position d/t bp of 86/53
--- NOTE | 2023-01-08 04:13 | PC.NURSE ---
pt unarousable sternum rub performed pt responded
--- NOTE | 2023-01-08 04:16 | PC.NURSE ---
requested urine drug screen per verbal order from hospitalist kellie steinberg LITTLE urine drug screen
[2023-01-08 04:31] LABS: Amphetamine Screen Urine Not Detected (Not Detect); Barbiturates, Urine Not Detected (Not Detect); Benzodiazepines Screen Urine Not Detected (Not Detect); Cannabinoid Screen Urine Not Detected (Not Detect); Cocaine Screen Urine Not Detected (Not Detect); Fentanyl, urine Not Detected (Not Detect); Opiate Screen Urine POSITIVE (Not Detect); Phencyclidine Screen Urine Not Detected (Not Detect)
--- NOTE | 2023-01-08 05:01 | PC.NURSE ---
pt remains asleep respirations even and unlabored
--- NOTE | 2023-01-08 05:04 | PC.NURSE ---
pt awake requested piss jug pt was able to use urinal without assistance
--- NOTE | 2023-01-08 05:05 | PC.NURSE ---
O2Sat 97%
--- NOTE | 2023-01-08 05:39 | PC.NURSE ---
pt cleaned and dry linens changed incontinent of urine assisted by NORMA Hathaway
[2023-01-08] MEDS: Lactated Ringers 1,000 ML 999 ML IV (05:45)
--- NOTE | 2023-01-08 06:37 | P.HPHOSP_ITS ---
History of Present Illness Date of Service: 01/08/23 Chief Complaint: falls this is a 62-year-old male with past medical history of diabetes, HLD, history of alcohol use now in remission for past 1 year, presents to the hospital from [facility] with complaints of multiple episodes of fall. Patient reports that the last episode happened the day prior to presentation, with bruising on his forehead. He reports that he had no loss of consciousness, reports no dizziness, but he states that after the 1st episode he hit his head and lost consciousness for few seconds. Denies any evidence of seizures. But he reports the feeling significantly weak, denies any chest pain, no shortness of breath, reports abdominal pain as chronic, worse in the right lower quadrant, reports having a cyst in the pancreas, denies any urinary symptoms, no lower extremity edema. No numbness weakness or tingling in specific area. On arrival to the ED patient noted to be slightly hypotensive with systolic BP is in the 90s over 60s Labs are significant for WBC count of 10.3, creatinine of 2.23 with a baseline of around 1.3, otherwise unremarkable, UA negative, UDS positive for opioids- he does take oxycodone a baseline patient started on IV fluids and will be admitted for further management Review of Systems Review of Systems: Yes all other systems are reviewed and are negative [facility] Medical History Acidosis, lactic Acute dehydration Acute hyperglycemia Alcohol abuse Alcohol abuse Alcohol dependence with withdrawal Alcohol use disorder, severe, dependence Alcoholic gastritis Attention deficit disorder Degenerative disc disease, cervical Depression Diabetes mellitus Dyslipidemia Head injury History of substance abuse Hypomagnesemia Hypotestosteronism Osteoarthritis of right hand Pancreatic cyst Pancreatitis Prolonged QT interval Pseudocyst of pancreas Thrombocytopenia Vomiting Family History Father Cancer Mother Cancer Diabetes Surgical History History of surgery Hx of colonoscopy Social History Household Members: None Housing: Apartment Do you presently have visiting nurse or other home services: No Unable to assess alcohol history related to: Refusing to respond Alcohol intake: unknown Patient Tobacco Use Status: Tobacco use Unknown Tobacco use type: Cigarette Cigarette Packs Per Day: 2 Cigarettes Per Day: 40.0 Use of substances other than those prescribed or required for medical reasons: Unable to respond Substance Use Type: Former Substance User Advance Directives: Yes Advance Directives on File: Yes Advance Directives Date on File: 03/05/21 service: No Current occupational status: unemployed and disabled Current occupation: Right Handed Meds Allergies Allergy/AdvReac Type Severity Reaction Status Date / Time No Known Drug Allergies Allergy Unknown Verified 01/07/23 23:49 Active Medications: Current Medications Acetaminophen (Acetaminophen 325 Mg Tablet) 650 mg PO Q6H PRN PRN Reason: Pain, Mild (Pain Scale 1-3) Docusate Sodium (Docusate Sodium 100 Mg Capsule) 100 mg PO DAILY PRN PRN Reason: Constipation Heparin Sodium (Porcine) (Heparin Sodium,Porcine 5,000 Unit/Ml Vial) 5,000 unit SUBCUT Q12H [facility] Last Admin: 01/08/23 03:05 Dose: 5,000 unit Lactated Ringer's (Lr) 1,000 mls @ 100 mls/hr IVCONT .Q10H [facility] Last Admin: 01/08/23 03:06 Dose: 100 mls/hr Lactated Ringer's (Lr) 1,000 mls @ 999 mls/hr IV .Q1H1M [facility] Stop: 01/08/23 06:45 Last Admin: 01/08/23 05:45 Dose: 999 mls/hr Ondansetron HCl (Ondansetron Hcl 4 Mg/2 Ml Vial) 4 mg IVPUSH Q8H PRN PRN Reason: Nausea and Vomiting Sodium Chloride (0.9 % Sodium Chloride Flush 3 Ml Syringe) 3 ml IVFLUSH QSHIFT [facility] Home Medications Medication Instructions Recorded Confirmed Last Taken Type insulin lispro 100 unit/mL 0 sliding scale dose subcut QIDACHS 04/01/21 04/25/22 05/26/21 History subcutaneous pen (Humalog KwikPen (U-100) Insulin) baclofen 10 mg tablet 10 mg PO BEDTIME 01/17/22 04/25/22 Unknown History escitalopram oxalate 10 mg tablet 15 mg PO DAILY 01/17/22 04/25/22 Unknown History gabapentin 600 mg tablet 600 mg PO TID 01/17/22 04/25/22 Unknown History insulin glargine 100 unit/mL (3 10 unit subcut BEDTIME 01/17/22 04/25/22 Unknown History mL) subcutaneous pen albuterol sulfate 90 mcg/actuation 2 puff inhalation Q6H PRN Wheezing 04/25/22 04/25/22 Unknown History aerosol inhaler cholecalciferol (vitamin D3) 25 25 mcg PO DAILY 04/25/22 04/25/22 Unknown History mcg (1,000 unit) tablet cyanocobalamin (vitamin B-12) 1,000 mcg PO DAILY 04/25/22 04/25/22 Unknown H istory 1,000 mcg tablet,extended release ferrous sulfate 325 mg (65 mg 325 mg PO BID 04/25/22 04/25/22 Unknown History iron) tablet folic acid 1 mg tablet 1 mg PO DAILY 04/25/22 04/25/22 Unknown History furosemide 20 mg tablet 20 mg PO DAILY 04/25/22 04/25/22 Unknown History furosemide 40 mg tablet 40 mg PO DAILY 04/25/22 04/25/22 Unknown History hydroxyzine HCl 25 mg tablet 25 mg PO Q8H PRN Itching 04/25/22 04/25/22 Unknown History lactulose 10 gram/15 mL (15 mL) 30 ml PO DAILY 04/25/22 04/25/22 Unknown History oral solution lactulose 10 gram/15 mL (15 mL) 30 ml PO Q4H PRN Constipation 04/25/22 04/25/22 Unknown History oral solution lorazepam 0.5 mg tablet 0.5 mg PO Q12H PRN Anxiety 04/25/22 04/25/22 Unknown History melatonin 3 mg tablet 3 mg PO BEDTIME 04/25/22 04/25/22 Unknown History multivitamin 1 tab PO DAILY 04/25/22 04/25/22 Unknown History ondansetron HCl 4 mg tablet 4 mg PO Q8H PRN Nausea 04/25/22 04/25/22 Unknown History oxycodone 10 mg tablet,crush 10 mg PO BID 04/25/22 04/25/22 Unknown History resistant,extended release 12 hr (OxyContin) oxycodone 5 mg tablet 5 mg PO Q6H PRN Pain 04/25/22 04/25/22 Unknown History pantoprazole 40 mg tablet,delayed 40 mg PO DAILY 04/25/22 04/25/22 Unknown History release (Protonix) polyethylene glycol 3350 17 gram 17 g PO BID 04/25/22 04/25/22 Unknown History oral powder packet (Miralax) quetiapine 50 mg tablet 50 mg PO BID 04/25/22 04/25/22 Unknown History quetiapine 50 mg tablet 50 mg PO DAILY 04/25/22 04/25/22 Unknown History sennosides 8.6 mg-docusate sodium 2 tab-cap PO BEDTIME 04/25/22 04/25/22 Unknown History 50 mg tablet (Senna-S) spironolactone 100 mg tablet 100 mg PO DAILY 04/25/22 04/25/22 Unknown History tamsulosin 0.4 mg capsule 0.4 mg PO BEDTIME 04/25/22 04/25/22 Unknown History thiamine HCl (vitamin B1) 100 mg 100 mg PO DAILY 04/25/22 04/25/22 Unknown History tablet Physical Exam Vital Signs and Narrative: Vital Signs: Last Vital Signs Temp 97.2 F 01/07/23 23:44 Pulse 77 01/08/23 05:41 Resp 13 01/08/23 05:41 BP 101/62 01/08/23 05:41 Pulse Ox 95 01/08/23 05:41 O2 Del Method Room Air 01/08/23 05:41 BMI result Body Mass Index 27.2 Const: Other: poor hygiene General: cooperative and no acute distress Orientation/consciousness: patient oriented x3 Eyes: General: appearance normal, both eyes and all related structures Pupils: Equal, round and reactive pupils present Resp: Effort & Inspection: normal respiratory effort Auscultation: clear to auscultation bilaterally Cardio: Rate: regular rate Rhythm: regular rhythm GI: Other: abdomen is hard, distended, diffusely tender, worse in the right lower quadrant Skin: General skin exam: no rashes or lesions noted Neuro: General: patient oriented x3 Cranial nerves: Yes Equal, round and reactive pupils present Cognition (Neuro): normal cognition Extrem: General: Yes normal to inspection and Yes no pedal edema Results Labs 01/08/23 00:04 01/08/23 00:04 Labs: Laboratory Results - last 24 hr 01/08/23 01/08/23 01/08/23 00:04 00:04 00:04 MCV 93.4 MCH 31.7 MCHC 34.0 RDW 13.5 Plt Count 103 L MPV 10.2 Immature Gran % (Auto) 0.4 Neut % (Auto) 68.9 Lymph % (Auto) 17.2 L [place] % (Auto) 9.4 Eos % (Auto) 3.7 Baso % (Auto) 0.4 Lymph # (Auto) 1.8 [place] # (Auto) 1.0 Eos # (Auto) 0.4 Baso # (Auto) 0.0 Abs Immat Gran (auto) 0.04 H Absolute Neuts (auto) 7.1 Absolute Nucleated RBC 0.000 Nucleated RBC % (auto) 0.0 Anion Gap 14 Estim Creat Clear Calc 33.6 Estimated GFR 30 Random Glucose 152 H Calcium 9.3 Total Creatine Kinase 134 Troponin I High Sens 2.9 Urine Color Urine Appearance Urine pH Ur Specific [place] Urine Protein Urine Glucose (UA) Urine Ketones Urine Blood Urine Nitrite Ur Leukocyte Esterase Urine RBC Urine WBC Ur Squamous Epith Cells Urine Bacteria Hyaline Casts Urine Opiates Screen Urine Fentanyl Screen Ur Barbiturates Screen Ur Phencyclidine Scrn Ur Amphetamines Screen U Benzodiazepines Scrn Urine Cocaine Screen U Marijuana (THC) Screen Ethyl Alcohol 01/08/23 01/08/23 01/08/23 00:04 02:25 02:25 MCV MCH MCHC RDW Plt Count MPV Immature Gran % (Auto) Neut % (Auto) Lymph % (Auto) [place] % (Auto) Eos % (Auto) Baso % (Auto) Lymph # (Auto) [place] # (Auto) Eos # (Auto) Baso # (Auto) Abs Immat Gran (auto) Absolute Neuts (auto) Absolute Nucleated RBC Nucleated RBC % (auto) Anion Gap Estim Creat Clear Calc Estimated GFR Random Glucose Calcium Total Creatine Kinase Troponin I High Sens Urine Color Yellow Urine Appearance Clear Urine pH 5.5 Ur Specific [place] 1.010 Urine Protein Negative Urine Glucose (UA) Negative Urine Ketones Negative Urine Blood Negative Urine Nitrite Negative Ur Leukocyte Esterase Negative Urine RBC 0-2 Urine WBC 0-5 Ur Squamous Epith Cells 0-2 Urine Bacteria None Seen Hyaline Casts 0-2 Urine Opiates Screen POSITIVE H Urine Fentanyl Screen Not Detected Ur Barbiturates Screen Not Detected Ur Phencyclidine Scrn Not Detected Ur Amphetamines Screen Not Detected U Benzodiazepines Scrn Not Detected Urine Cocaine Screen Not Detected U Marijuana (THC) Screen Not Detected Ethyl Alcohol < 10 Imaging Radiologist's Impressions: Impressions Cervical Spine CT 01/08/23 00:50 IMPRESSION: * No acute intracranial findings. Thin right frontal and left parietal subgaleal hematomas. * No acute fracture or traumatic malalignment of the cervical spine. * Large right thyroid nodule, without significant change in size since September 2019. Per report, this has previously been biopsied. If not, ultrasound guided FNA recommended. Head CT 01/08/23 00:50 IMPRESSION: * No acute intracranial findings. Thin right frontal and left parietal subgaleal hematomas. * No acute fracture or traumatic malalignment of the cervical spine. * Large right thyroid nodule, without significant change in size since September 2019. Per report, this has previously been biopsied. If not, ultrasound guided FNA recommended. Chest X-Ray 01/08/23 00:58 IMPRESSION: Clear lungs Assessment and Plan (1) Acute renal failure: Status: Acute (2) Acute dehydration: Status: Acute (3) Falls: Status: Acute (4) Abdominal distension: Status: Acute Plan 62-year-old male with past medical history of diabetes, HLD, history of alcohol use now in remission presents to the hospital with complaints of frequent falls found to have acute kidney injury # LIANA - possibly secondary to dehydration, no urinary tract infection, no history of stone - patient started on IV fluids - follow BMP - given abdominal distension will obtain abdominal pelvic CT # abdominal distension - unclear etiology at this time - will obtain abdominal pelvic CT without contrast - follow results # falls - possibly due to deconditioning - denies any loss of consciousness, no vertigo, no dizziness, no cardiac symptoms - will consult physical therapy # diabetes - continue home insulin - will add low-dose sliding scale insulin - diabetic diet pending med review and reconciliation by pharmacy DVT prophylaxis: Heparin subQ given acute kidney injury requiring IV fluids patient will require minimal 2 night inpatient hospital stay for further management and monitoring Time Spent With Patient Time: Total time managing care of this patient today ____ minutes. Quality Stroke Does the patient have a stroke diagnosis?: No VTE Prior VTE?: No VTE Risk Level:: Medical - moderate - high VTE Device Contraindication: Treatment Not Indicated VTE Drug Contraindication: N/A - Med Ordered
[2023-01-08 06:52] LABS: Alanine Aminotransferase 14 U/L (0-40); Albumin Level 3.7 g/dL (3.5-5.0); Alkaline Phosphatase 89 U/L (39-117); Anion Gap 14 (12-20); Aspartate Amino Transferase 18 U/L (5-37); Bilirubin Total 0.6 mg/dL (0.0-1.0); Blood Urea Nitrogen 38 mg/dL (9-16); Calcium 8.7 mg/dL (8.4-10.2); Carbon Dioxide 24 mmol/L (22-29); Chloride 107 mmol/L (96-108); Creatinine Clr Calc Pharmacy 40.5; Estimated Glomerular Filt Rate 37; Glucose Random 146 mg/dL (60-115); Sodium 141 mmol/L (135-145); Total Protein 6.4 g/dL (6.5-8.0)
--- NOTE | 2023-01-08 07:03 | PC.NURSE ---
attempted to do orthostatics NORMA Cortes attempted to do orthostatics pt not responsive and unable to stand
[2023-01-08 07:10] LABS: Glucose, Whole Blood 136 mg/dL (60-115)
--- NOTE | 2023-01-08 07:40 | PM.EVENT ---
Event Note Date of Service: 01/08/23 Event Note: patient admitted early this morning due to recurrent falls complaining of right elbow discomfort and asking for home medications on examination right elbow good range of motion, no bruising, noted small linear skin tear, well-healed. 62-year-old male with past medical history of? diabetes, HLD, history of alcohol use now in remission presents to the hospital with complaints of frequent falls found to have acute kidney injury #? LIANA -? possibly secondary to diuretics, CT abdomen showed no obstruction continue IV fluids hold diuretics and nephrotoxic avoid hypotension follow BMP #? abdominal distension -? no abdominal discomfort CT abdomen and pelvis showed no acute abnormality , decreased size pancreatic cyst. #?Mechanical falls -? possibly due to deconditioning/neuropathy, left elbow pain no further imaging required -? denies any loss of consciousness, no vertigo, no dizziness, no cardiac symptoms - physical therapy #? diabetes -? 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 Heparin subQ ? given acute kidney injury requiring IV fluids patient will require continued inpatient hospital stay for further management and monitoring Time Spent With Patient Time: Total time managing care of this patient today ____ minutes.
--- NOTE | 2023-01-08 08:07 | PHA.MEDREC ---
Pharmacy Consult ? Medication Reconciliation Pharmacy has completed the medication reconciliation.
[2023-01-08 08:22] LABS: Magnesium 2.1 mg/dL (1.6-2.6)
[2023-01-08] MEDS: QUEtiapine Fumarate 25 MG TABLET 75 MG PO (12:11)
[2023-01-08] MEDS: Midodrine HCl 5 MG TABLET PO ×2 (12:11→21:57)
[2023-01-08] MEDS: Morphine Sulfate ER 30 MG TABLET.ER PO (12:12)
[2023-01-08 12:17] LABS: Glucose, Whole Blood 97 mg/dL (60-115)
--- NOTE | 2023-01-08 12:54 | MHC.CM.PN ---
This technical proposal writer met with patient. He lives @ [facility]- he has lived there for 1 year. Uses wheelchair @ baseline. Observation notice given. Plan is for patient to return w/ BLS for transport. Return referral made.
[2023-01-08] MEDS: Gabapentin 400 MG CAPSULE 800 MG PO ×2 (14:56→21:57)
[2023-01-08] MEDS: oxyCODONE HCl Immed Release 5 MG TABLET PO (14:56)
[2023-01-08 15:28] LABS: Glucose, Whole Blood 150 mg/dL (60-115)
[2023-01-08] MEDS: Nicotine 7 MG PATCH.TD24 TRANSDERMA (16:36)
[2023-01-08 19:27] LABS: Glucose, Whole Blood 180 mg/dL (60-115)
[2023-01-08] MEDS: oxyCODONE HCl Immed Release 5 MG TABLET 2.5 MG PO (19:38)
[2023-01-08] MEDS: 0.9 % Sodium Chloride Flush 3 ML SYRINGE IVFLUSH ×2 (19:39→23:55)
[2023-01-08] MEDS: Lactulose 20 GM/30 ML SOLUTION PO (21:56)
[2023-01-08] MEDS: Melatonin 3 MG TABLET 6 MG PO (21:56)
[2023-01-08] MEDS: Insulin Lispro 100 UNIT/ML 3 ML VIAL SUBCUT (21:57)
[2023-01-08] MEDS: Tamsulosin HCL 0.4 MG CAPSULE PO (21:57)
[2023-01-08] MEDS: QUEtiapine Fumarate 50 MG TABLET PO (21:57)
[2023-01-08] MEDS: Baclofen 20 MG TABLET PO (21:57)
[2023-01-08] MEDS: Ferrous Sulfate 324 MG TABLET.DR PO (21:57)
[2023-01-08] MEDS: Insulin Glargine,Hum.rec.anlog 100 UNIT/ML 10 ML VIAL 20 UNIT SUBCUT (21:58)
[2023-01-08] MEDS: Morphine Sulfate ER 15 MG TABLET.ER PO (23:53)
--- NOTE | 2023-01-09 00:19 | PC.NURSE ---
Addendum entered by Danie Cabrera RN 01/09/23 00:26: Patient was noted to have low blood pressures in ED before coming to med-tele. Patient had a 1 L bolus in ED, and continuous fluids ordered 100 cc/hour, discussed with MD and no need for further bolus. Upon med req, discussed with MD and midodrine given early with good effect. Original Note: Assumed care at 10 am. Patient oriented to person, place, and situation, disoriented to time. Patient has a speech mannerism with vulgarity and poor pronunciation, left his dentures at [facility], and also needs chopped meat in his diet, kitchen staff aware and will cut meat up for him. Patient had a variety of complaints reported about his vision being blurred over last 4-5 days, and having fallen as well multiple times in that time frame, left calf pain, right sided neck pain, as well as that his right elbow had a lump and was painful where he reported having struck it in a fall, MD aware and to bedside to assess. Patient to followup outpatient with opthalmology per MD. Neuros otherwise intact. Medicated per emar. Patient also lethargic and drowsy and falling asleep frequently between sentences, reports history of using CPAP but not recently, serum CO2 was WNL, MD notified.
[2023-01-09] MEDS: Heparin Sodium,Porcine 5,000 UNIT/ML VIAL 5000 UNIT SUBCUT (01:31)
[2023-01-09] MEDS: oxyCODONE HCl Immed Release 5 MG TABLET 2.5 MG PO ×2 (02:42→08:19)
[2023-01-09 03:59] VITALS: BP 92/55; PULSE 73; RESP 16; TEMP 36.6; O2SAT 93
[2023-01-09 07:17] LABS: Glucose, Whole Blood 137 mg/dL (60-115)
[2023-01-09 07:40] VITALS: BP 113/59; PULSE 58; RESP 20; TEMP 36.6; O2SAT 94
[2023-01-09] MEDS: Nicotine 7 MG PATCH.TD24 TRANSDERMA (07:57)
[2023-01-09] MEDS: Lactulose 20 GM/30 ML SOLUTION PO (07:57)
[2023-01-09] MEDS: Ferrous Sulfate 324 MG TABLET.DR PO (07:57)
[2023-01-09] MEDS: Cholecalciferol (Vitamin D3) 25 MCG TABLET PO (07:58)
[2023-01-09] MEDS: Thiamine HCL 100 MG TABLET PO (07:58)
[2023-01-09] MEDS: Midodrine HCl 5 MG TABLET PO ×2 (07:58→14:47)
[2023-01-09] MEDS: Folic Acid 1 MG TABLET PO (07:59)
[2023-01-09] MEDS: Gabapentin 400 MG CAPSULE 800 MG PO ×2 (07:59→14:47)
[2023-01-09] MEDS: Cyanocobalamin (Vitamin B-12) 1,000 MCG TABLET 1000 MCG PO (07:59)
[2023-01-09] MEDS: Multivitamin TABLET 1 TAB PO (07:59)
[2023-01-09] MEDS: Escitalopram Oxalate 5 MG TABLET 15 MG PO (07:59)
[2023-01-09] MEDS: 0.9 % Sodium Chloride Flush 3 ML SYRINGE IVFLUSH (07:59)
[2023-01-09] MEDS: QUEtiapine Fumarate 50 MG TABLET PO ×2 (07:59→11:43)
[2023-01-09] MEDS: Lactated Ringers 1,000 ML 100 ML IVCONT (09:34)
[2023-01-09 09:37] LABS: Hematocrit 30.8 % (42.0-52.0); Hemoglobin 10.4 g/dl (14.0-18.0); Mean Corpuscular HGB Conc 33.8 g/dl (31.0-36.0); Mean Corpuscular Hemoglobin 31.7 pg (27.0-33.0); Mean Corpuscular Volume 93.9 fL (80.0-98.0); Mean Platelet Volume 10.2 fL (9.4-12.4); Red Blood Count 3.28 X10*6/uL (4.60-5.80); Red Cell Distribution Width 13.8 % (11.0-16.0); White Blood Count 6.9 X10*3/uL (4.8-10.8)
[2023-01-09 09:39] LABS: Platelet Count 96 X10*3/uL (160-400)
[2023-01-09 09:53] LABS: Anion Gap 10 (12-20); Blood Urea Nitrogen 28 mg/dL (9-16); Carbon Dioxide 26 mmol/L (22-29); Chloride 108 mmol/L (96-108); Creatinine Clr Calc Pharmacy 51.4; Estimated Glomerular Filt Rate 49; Glucose Random 179 mg/dL (60-115); Potassium 4.4 mmol/L (3.3-5.1); Sodium 140 mmol/L (135-145)
[2023-01-09 10:57] LABS: Glucose, Whole Blood 179 mg/dL (60-115)
[2023-01-09 11:00] VITALS: BP 101/59; PULSE 59; RESP 20; TEMP 36.1; O2SAT 95
[2023-01-09] MEDS: Morphine Sulfate ER 15 MG TABLET.ER PO (11:43)
[2023-01-09] MEDS: Insulin Lispro 100 UNIT/ML 3 ML VIAL SUBCUT (11:43)
--- NOTE | 2023-01-09 12:16 | P.DS_ITS ---
DS: Providers Provider Date of Service: 01/09/23 Date of admission: 01/08/23 02:05 Primary care physician: Jose White MD DS: Diagnosis Discharge Diagnosis (1) Acute renal failure: Status: Acute (2) Acute dehydration: Status: Acute (3) Falls: Status: Acute (4) Abdominal distension: Status: Acute DS: Summary Hospital Course Hospital Course: history of presenting illness: Date of Service: 01/08/23 Chief Complaint: falls ?this is a 62-year-old male with past medical history of diabetes, HLD, history of alcohol use now in remission for past 1 year, presents to the hospital from [facility] with complaints of multiple episodes of fall.? Patient reports that the last episode happened the day prior to presentation, with bruising on his forehead.? He reports that he had no loss of consciousness, reports no dizziness, but he states that after the 1st episode he hit his head and lost consciousness for few seconds.? Denies any evidence of seizures.? But he reports the feeling significantly weak,? denies any chest pain, no shortness of breath, reports abdominal pain as chronic, worse in the right lower quadrant, reports having a c yst in the pancreas, denies any urinary symptoms, no lower extremity edema.? No numbness weakness or tingling in specific area.? On arrival to the ED patient noted to be slightly hypotensive with systolic BP is in the 90s over 60s Labs are significant for WBC count of 10.3, creatinine of 2.23 with a baseline of around 1.3, otherwise unremarkable, UA negative, UDS positive for opioids- he does take oxycodone a baseline patient started on IV fluids and will be admitted for further management. hospital course: 62-year-old male with past medical history of? diabetes, HLD, history of alcohol use now in remission presents to the hospital with complaints of frequent falls found and noted to have acute kidney injury. 1 of #? LIANA-due to volume depletion secondary to diuretics, CT abdomen showed no obstruction , treated with IV fluids, held diuretics, creatinine improved,but remains mildly elevated but patient is eager to be discharged home therefore will discharge to rehab facility, Home dose of diuretics have been discontinued, recommend to follow BMP and resume diuretics low-dose to avoid hypotension and dehydration. #? abdominal distension/pain-?? abdominal pain/ distension improved, CT abdomen and pelvis showed no acute abnormality , decreased size of ch.pancreatic cyst. #?Mechanical falls-? possibly due to deconditioning/neuropathy, multiple sedating medications including Neurontin, Seroquel and narcotics, CT head, C- spine showed no acute abnormality except for thin right frontal and left parietal subgaleal hematomas, patient asymptomatic with no headache, dizziness,no nausea, repeat hematocrit remains stable. seen by Physical therapy they recommend short-term rehab. dose of of noon time, seroquel reduced to 50 mg, dose of MS Contin reduced to 50 mg b.i.d. #? diabetes-?? stable blood sugars, continue diabetic diet, Lantus dose decreased to 35 units, continue insulin sliding scale. #? history of neuropathy,? likely alcohol induced, continue home meds. #? chronic hypotension continue midodrine. Time Spent with Patient Time attestation: Total time managing care of this patient today ____ minutes. Discharge coordination time: Greater than 30 minutes Quality: Safe Use of Opioids Does Pt have an Active Cancer Diagnosis on the Problem List?: No Quality: Stroke Does the patient have a stroke diagnosis?: No Physical Exam Vital Signs: Vital Signs: Last Vital Signs Temp 97.0 F 01/09/23 11:00 Pulse 59 01/09/23 11:00 Resp 20 01/09/23 11:00 BP 101/59 L 01/09/23 11:00 Pulse Ox 95 01/09/23 11:00 O2 Del Method Room Air 01/09/23 11:00 BMI result Body Mass Index 27.2 Const: Other: General awake alert x3, no confusion, resting comfortably in no acute distress. Neck is supple no JVD. CVS regular rate rhythm, Respiratory lungs clear to auscultation, no respiratory distress, no wheeze, no rhonchi. Gastrointestinal abdomen soft, nontender, bowel sounds audible, no guarding , no rigidity. Extremities no edema. Neuro nonfocal ,moving all 4 extremity speech clear. Skin right elbow skin tear psych appropriate affect. DS: Data Data Completed and Pending Completed studies during hospitalization [Text1]: Procedures Detoxification Services for Substance Abuse Treatment (03/15/21) Transfusion of Nonautologous Platelets into Peripheral Vein, Percutaneous Approach (09/12/20) Labs on day of discharge: Laboratory Results - last 24 hr 01/08/23 01/08/23 01/08/23 11:33 15:22 19:13 WBC RBC Hgb Hct MCV MCH MCHC RDW Plt Count MPV Absolute Nucleated RBC Nucleated RBC % (auto) Sodium Potassium Chloride Carbon Dioxide Anion Gap BUN Creatinine Estim Creat Clear Calc Estimated GFR POC Glucose 97 150 H 180 H Random Glucose Calcium 01/09/23 01/09/23 01/09/23 07:14 09:28 09:28 WBC 6.9 RBC 3.28 L Hgb 10.4 L Hct 30.8 L MCV 93.9 MCH 31.7 MCHC 33.8 RDW 13.8 Plt Count 96 L MPV 10.2 Absolute Nucleated RBC 0.000 Nucleated RBC % (auto) 0.0 Sodium 140 Potassium 4.4 Chloride 108 Carbon Dioxide 26 Anion Gap 10 L BUN 28 H Creatinine 1.46 H Estim Creat Clear Calc 51.4 Estimated GFR 49 POC Glucose 137 H Random Glucose 179 H Calcium 9.0 01/09/23 10:52 WBC RBC Hgb Hct MCV MCH MCHC RDW Plt Count MPV Absolute Nucleated RBC Nucleated RBC % (auto) Sodium Potassium Chloride Carbon Dioxide Anion Gap BUN Creatinine Estim Creat Clear Calc Estimated GFR POC Glucose 179 H Random Glucose Calcium Discharge Plan Discharge Anticipated Discharge Date/Time: 01/09/23 12:11 Patient Disposition: Xfer [facility] Discharge Diagnosis: acute renal failure mechanical fall Referrals: Jose White MD [Primary Care Provider] - 1 Week Discharge Medications: New morphine 15 mg Tablet Extended Release 15 mg PO Q12H Qty: 6 0RF Rx Instructions: Partial Fill upon patient request. Continued (DME) FreeStyle Lite Strips Strip See Rx Instructions .Route Qty: 100 6RF Rx Instructions: As directed- In Vitro to test blood sugars TID insulin lispro [Humalog KwikPen Insulin] 100 unit/mL Insulin Pen 0 sliding scale dose SUBCUT QIDACHS Protocol: Insulin Correction Scale Less than or equal to 110 ---- Give (units): 0 111 to 150 Give (units): 0 151 to 200 Give (units): 1 201 to 250 Give (units): 2 251 to 300 Give (units): 4 301 to 350 Give (units): 6 Greater than 350 Give (units): 10 Call MD if Blood Glucose > : 350 baclofen 10 mg Tablet 20 mg PO BEDTIME escitalopram oxalate 10 mg Tablet 15 mg PO DAILY multivitamin Tablet 1 tab PO DAILY cyanocobalamin (vitamin B-12) 1,000 mcg Tablet Extended Release 1,000 mcg PO DAILY polyethylene glycol 3350 [Miralax] 17 gram Powder In Packet 17 g PO BID ondansetron HCl 4 mg Tablet 4 mg PO Q8H PRN (Reason: Nausea) sennosides-docusate sodium [Senna-S] 8.6-50 mg Tablet 2 tab-cap PO BEDTIME thiamine HCl (vitamin B1) 100 mg Tablet 100 mg PO DAILY melatonin 3 mg Tablet 6 mg PO BEDTIME lorazepam 0.5 mg Tablet 0.5 mg PO Q12H PRN (Reason: Anxiety) tamsulosin 0.4 mg Capsule 0.4 mg PO BEDTIME pantoprazole [Protonix] 40 mg Tablet,Delayed Release (Dr/Ec) 40 mg PO DAILY ferrous sulfate 325 mg (65 mg iron) Tablet 325 mg PO BID folic acid 1 mg Tablet 1 mg PO DAILY albuterol sulfate 90 mcg/actuation Hfa Aerosol Inhaler 2 puff INHALATION Q6H PRN (Reason: Wheezing) oxycodone 5 mg Tablet 5 mg PO Q6H PRN (Reason: Pain) quetiapine 50 mg Tablet 50 mg PO BID cholecalciferol (vitamin D3) 25 mcg (1,000 unit) Tablet 25 mcg PO DAILY lactulose 10 gram/15 mL (15 mL) Solution 30 ml PO Q4H PRN (Reason: Constipation) lactulose 10 gram/15 mL (15 mL) Solution 30 ml PO BID midodrine 5 mg Tablet 5 mg PO TID Rx Instructions: do not give last dose of day after 6PM or within 4 hrs of bedtime gabapentin 800 mg Tablet 800 mg PO TID Changed quetiapine 50 mg Tablet 50 mg PO DAILY@1200 Qty: 1 0RF insulin glargine 100 unit/mL (3 mL) Insulin Pen 35 unit SUBCUT BEDTIME Qty: 15 0RF Discontinued furosemide 40 mg Tablet 60 mg PO DAILY spironolactone 100 mg Tablet 100 mg PO DAILY morphine 30 mg Tablet Extended Release 30 mg PO Q12H Discharge Orders: Discharge Order (Routine); Ordered 01/09/23 Ordered By: Vivek Houston Diet: Diabetic diet Activity on Discharge: As tolerated Stand Alone Forms: Patient Portal Discharge page Care Plan Goals: recurrent falls likely due to multiple sedative medications including Seroquel and morphine sulfate dose of Seroquel and morphine reduced, PT recommend short- term rehab acute renal failure likely due to diuretics hold Lasix and spironolactone and resume low-dose once renal function normalized check BMP on Wednesday01/11/23 Health Concerns: diabetes mellitus/neuropathy Plan of Treatment: follow-up with primary care physician Assessment: as above
--- NOTE | 2023-01-09 13:06 | MHC.CM.PN ---
Patient has been medically cleared for dc to LTC today. Patient will return to LTC @ [facility] today at 4PM via [facility]. Patient and his Brother/HCP/Poli @ [phone] are aware of and in agreement with the dc plan.
[2023-01-09 14:13] LABS: COVID-19 Test Negative (Negative); IDNOW Serial# BCCEAD1C
[2023-01-09 15:06] VITALS: BP 106/59; PULSE 57; RESP 20; TEMP 36.2; O2SAT 96
[2023-01-09 16:08] LABS: Glucose, Whole Blood 270 mg/dL (60-115)
== END 2023-01-09 16:35 | disposition skilled nursing facility (03) ==
LOC: HO.ED 01-08 02:23 → HO.EDOVER 01-08 02:28 → HO.IMC 01-08 07:40
PROVIDERS: Admitting Provider Internal Medicine; Emergency Provider Emergency Medicine Emergency Medical Services; PCP Internal Medicine; Visit Provider Hospitalist
DX: E86.0 Dehydration (principal); N17.9 Acute kidney failure, unspecified; R14.0 Abdominal distension (gaseous); S00.83XA Contusion of other part of head, initial encounter; W17.89XA Other fall from one level to another, initial encounter; E11.9 Type 2 diabetes mellitus without complications; G62.9 Polyneuropathy, unspecified; I95.9 Hypotension, unspecified; E04.1 Nontoxic single thyroid nodule; E78.5 Hyperlipidemia, unspecified; F10.21 Alcohol dependence, in remission; Y90.0 Blood alcohol level of less than 20 mg/100 ml; F17.210 Nicotine dependence, cigarettes, uncomplicated; Z79.4 Long term (current) use of insulin; Z79.899 Other long term (current) drug therapy; Y93.9 Activity, unspecified; Y92.9 Unspecified place or not applicable; Y99.9 Unspecified external cause status; Z20.822 Contact with and (suspected) exposure to COVID-19
CPT/HCPCS: 36415; 70450; 71045; 72125; 74176; 80048; 80053; 80307; 81001; 82550; 82947; 83735; 84484; 85025; 85027; 87635; 93005; 96360; 96361; 96372; 97162; 99222; 99285; J1643

== ENCOUNTER 2023-04-02 15:48 | Observation (INO) | payer MEDICAID, SELFPAY ==
--- NOTE | ~2023-04-02 | CT_ITS ---
EXAMINATION: CT ANGIOGRAM NECK WITH CONTRAST CT ANGIOGRAM BRAIN WITH CONTRAST CLINICAL INFORMATION: Aneurysm. COMPARISON: CTA head and neck 06/23/2017.. TECHNIQUE: Test bolus sequences followed by intravenous administration 70 mL of Omnipaque 350. Helical imaging was performed in the axial plane from the thoracic inlet to the skull vertex. Delayed postcontrast imaging of the head was also performed. The data was processed at the imaging technologist workstation for generation of MIP sequences. Angled MIPs and volume rendered reformatted images were also generated at an offline 3D workstation. Stenoses are assessed in accordance with NASCET criteria unless otherwise indicated. This CT examination was performed using dose optimization techniques as appropriate, variously including the following: *Automated exposure control *Adjustment of mA and/or kV according to patient size (this includes techniques or standardized protocols for targeted exams where dose is matched to indication/reason for exam; i.e. extremities or head) *Use of iterative reconstruction technique DLP: 1643 mGy-cm FINDINGS: Head CT: There is no intracranial hemorrhage, extra-axial collection, mass effect, or territorial infarction. No abnormal enhancement is seen. The dural venous sinuses appear grossly normal. The ventricles are normal in size without hydrocephalus. The extracranial structures are unremarkable. Neck CTA: The aortic arch is patent. The right innominate artery is difficult to evaluate due to artifact in the mediastinum. The right common carotid arteries deviated laterally related to the thyroid mass/nodules. Both common carotid arteries are patent. Atheromatous changes are seen at the carotid bifurcations without significant stenosis. There is mild fusiform enlargement of the upper cervical right ICA, similar compared with 2017. Atheromatous changes are seen at the carotid siphons without significant stenosis. Right vertebral artery origin is not well evaluated due to artifact. The vertebral arteries are otherwise unremarkable without stenosis or occlusion. 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 The daughter lobe seen projecting posteriorly and towards the right measures 4.7 mm which is also stable. The largest craniocaudal dimension is 9 mm which appears stable. There is no evidence of mural thrombus or calcification within the aneurysm sac. No new aneurysms are seen. The anterior posterior circulation appears patent. Non-vascular findings: Right lobe of the thyroid is significantly enlarged by multiple nodules measuring approximately 3.8 cm. No consolidation is seen in the upper lungs. The lung parenchyma difficult to evaluate due to motion artifact. Nonenlarged mediastinal lymph nodes. CT/CT angio head neck IMPRESSION: CT HEAD: No intracranial hemorrhage or large acute infarction. CTA NECK: No hemodynamically significant stenosis in the major arteries of the neck. Mild fusiform enlargement of the upper cervical right ICA is stable compared with 2017. 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 Neuro interventional follow-up is recommended. No new aneurysms. Additional findings: Dedicated thyroid ultrasound evaluation recommended for the significantly enlarged right lobe of the thyroid gland nodules measuring up to 3.8 cm.
--- NOTE | ~2023-04-02 | XR_ITS ---
EXAMINATION: XR CHEST CLINICAL INFORMATION: Fatigue. COMPARISON: Chest radiograph 01/08/2023. TECHNIQUE: Frontal view of the chest was obtained. FINDINGS: Examination is limited due to patient's rotation. However, accounting for this limitation, no discrete focal airspace opacity, pleural effusion or pneumothorax are noted. Redemonstration of low lung volumes with minimal bibasilar subsegmental atelectasis. Stable appearance of the cardiomediastinal silhouette. No displaced osseous fractures. Visualized upper abdomen is within normal limits. XR/XR chest 1V IMPRESSION: 1. Low lung volumes with bibasilar subsegmental atelectasis. 2. No focal infiltrate, pleural effusion or pneumothorax.
--- NOTE | ~2023-04-02 | CT_ITS ---
EXAMINATION: CT HEAD WITHOUT CONTRAST CLINICAL INFORMATION: Altered mental status. COMPARISON: CT head 01/08/2023. TECHNIQUE: Contiguous axial imaging was performed from the skull base to vertex without intravenous administration of contrast. This CT examination was performed using dose optimization techniques as appropriate, variously including the following: *Automated exposure control *Adjustment of mA and/or kV according to patient size (this includes techniques or standardized protocols for targeted exams where dose is matched to indication/reason for exam; i.e. extremities or head) *Use of iterative reconstruction technique DLP: 836 mGy-cm FINDINGS: Redemonstration of a basilar tip aneurysm measuring approximately 1.2 x 0.9 cm axial image 174 series 5, slightly increased in size compared to 0.9 and by 0.8 cm on 01/08/2023. There is no evidence of acute intracranial hemorrhage or edematous territorial infarction. There is no abnormal attenuation within the brain parenchyma. James-white matter differentiation is preserved. The ventricles are normal in size and configuration. No evidence for obstructive hydrocephalus. No abnormal mass effect or midline shift. No extra-axial fluid collections. Posterior vertex scalp hematoma. No displaced calvarial fracture. The mastoid air cells and paranasal sinuses are clear. CT/CT head/brain wo IV con IMPRESSION: Redemonstration of a basilar tip aneurysm, slightly increased in size since 01/08/2023. Recommend further evaluation with a CTA. This critical result was discussed with at 04/02/2023 7:09 PM and it was ascertained that the content and urgency of the report was understood at the time of direct communication.
--- NOTE | ~2023-04-02 | US_ITS ---
EXAMINATION: US THYROID CLINICAL INFORMATION: Enlarged thyroid. COMPARISON: 08/10/2017 TECHNIQUE: Linear transducer grayscale and color Doppler examination with attention to the region of the thyroid. FINDINGS: SIZE: Measurements of the thyroid lobes and nodules are given in sagittal, anteroposterior and transverse dimensions respectively. Right Thyroid Lobe: 6.8 x 3.1 x 3.4 cm, volume 37.3 mL. Previously 6.5 x 3.1 x 2.9 cm, volume 30.6 mL. Parenchyma: The gland echotexture is heterogeneous. Thyroid vascularity is normal. Left Thyroid Lobe: 4.4 x 1.8 x 1.4 cm, volume 5.9 mL. Previously 4.9 x 2.0 x 1.3 cm, volume 6.7 mL. Parenchyma: The gland echotexture is homogeneous. Thyroid vascularity is normal. Isthmus: 0.6 cm in maximum AP dimension. Previously 0.4 cm. Estimated total number of nodules greater than or equal to 1 cm: 1. Art Historian nodules are described as follows: 1. Location: Right. Size: 6.3 x 3.9 x 4.6 cm, volume 57.6 mL. Previously: 5.9 x 2.8 x 3.9 cm, volume 33.7 mL. Nodule characteristics: Composition: Solid (2). Echogenicity: Hypoechoic (2). Shape: Not taller than wide (0). Margins: Lobulated (2). Echogenic Foci: Macrocalcifications (1). Punctate echogenic foci (3). ACR TI-RADS total points: 10 ACR TI-RADS category: 5 Significant change in size (>/= 20% in 2 dimensions and minimal increase of 2 mm or 50% or greater increase in volume): Yes Change in features: No Change in ACR TI-RADS risk category: Not available. The previously identified nodule in the lower pole the left lobe seen 2017 exam is not appreciated. NODES: No lymphadenopathy is seen in the tissue surrounding the thyroid gland. US/US thyroid IMPRESSION: Enlarged heterogeneous right lobe. Interval increase in size in the solitary right thyroid nodule. This meets TI RADS criteria for fine-needle aspiration if not already performed. ACR TI-RADS RECOMMENDATION REFERENCE: Ultrasound-guided fine-needle aspiration, follow up ultrasound, no further followup. * TR1 (0 point) and TR2 (2 points): No FNA or followup * TR3 (3 points): FNA if more than or equal to 2.5 cm in maximum dimension, follow up ultrasound in 1, 3 and 5 years if 1.5 to 2.4 cm in maximum dimension. * TR4 (4-6 points): FNA if more than or equal to 1.5 cm in maximum dimension, follow up ultrasound in 1, 2, 3 and 5 years if 1 to 1.4 cm in maximum dimension. * TR5 (more than or equal to 7 points): FNA if more than or equal to 1 cm in maximum dimension, follow up ultrasound every year for 5 years if 0.5 to 0.9 cm in maximum dimension. * TR3, TR4 or TR5 nodules that are below the size threshold for follow up receive no followup.
[2023-04-02 15:58] VITALS: BP 119/75; BP 88/66; PULSE 70; RESP 12; TEMP 36.9; O2SAT 97; O2SAT 98; BMI 28.2
[2023-04-02 16:07] LABS: Glucose, Whole Blood 113 mg/dL (60-115)
[2023-04-02 16:43] LABS: MANUAL DIFF FLAG NO
[2023-04-02 16:44] LABS: Basophils Percent Auto 0.3 % (0-2); Eosinophils Absolute Auto 0.2 X10*3/uL (0.0-0.4); Eosinophils Percent Auto 2.6 % (0-4); Hematocrit 29.9 % (42.0-52.0); Hemoglobin 10.1 g/dl (14.0-18.0); Imm Gran Abs Auto 0.03 X10*3/uL (0.00-0.03); Imm Gran Pct Auto 0.3 % (0.0-0.4); Lymphocytes Absolute Auto 1.7 X10*3/uL (1.2-4.9); Lymphocytes Percent Auto 18.7 % (20-40); Mean Corpuscular HGB Conc 33.8 g/dl (31.0-36.0); Mean Corpuscular Hemoglobin 32.2 pg (27.0-33.0); Mean Corpuscular Volume 95.2 fL (80.0-98.0); Mean Platelet Volume 10.8 fL (9.4-12.4); Monocytes Absolute Auto 0.9 X10*3/uL (0.1-1.2); Monocytes Percent Auto 10.5 % (2-11); Neutrophils Absolute Auto 6.1 x10*3/uL (2.0-8.3); Neutrophils Percent Auto 67.6 % (45-73); Red Blood Count 3.14 X10*6/uL (4.60-5.80); Red Cell Distribution Width 13.5 % (11.0-16.0)
[2023-04-02 16:46] LABS: Platelet Count 96 X10*3/uL (160-400)
[2023-04-02 16:47] LABS: Venous Blood Gas Refer to POC result
[2023-04-02 16:48] LABS: VBG Base Excess -2.9 mmol/L; VBG HCO3 22 mmol/L (22-26); VBG pCO2 38 mmHg; VBG pH 7.36 (7.32-7.43); VBG pO2 99 mmHg
[2023-04-02 16:53] LABS: Ammonia 54 umol/L (13-55)
[2023-04-02] MEDS: Albuterol/Iprat 2.5/0.5MG 3 ML AMPUL.NEB INHALE (16:56)
[2023-04-02 16:57] VITALS: PULSE 64; RESP 12; O2SAT 96
[2023-04-02 16:57] LABS: Lipase 46 U/L (8-78)
[2023-04-02 16:58] VITALS: BP 107/63; PULSE 66; RESP 12; O2SAT 96
[2023-04-02 17:01] LABS: Alanine Aminotransferase 15 U/L (0-40); Alkaline Phosphatase 87 U/L (39-117); Anion Gap 11 (12-20); Aspartate Amino Transferase 26 U/L (5-37); Bilirubin Total 0.5 mg/dL (0.0-1.0); Blood Urea Nitrogen 40 mg/dL (9-16); Calcium 9.2 mg/dL (8.4-10.2); Carbon Dioxide 22 mmol/L (22-29); Chloride 111 mmol/L (96-108); Creatinine Clr Calc Pharmacy 46.2; Estimated Glomerular Filt Rate 42; Glucose Fasting 120 mg/dL (60-99); Potassium 4.2 mmol/L (3.3-5.1); Sodium 140 mmol/L (135-145); Total Protein 7.3 g/dL (6.5-8.0)
[2023-04-02 17:05] LABS: Glucose, Whole Blood 84 mg/dL (60-115)
--- NOTE | 2023-04-02 17:47 | ED_ITS ---
HPI - Altered Mental Status General Chief Complaint: Altered Mental Status Stated Complaint: hypoglycemic, per ems Time Seen by Provider: 04/02/23 16:30 Source: patient and old records reviewed Mode of arrival: EMS Limitations: no limitations History of Present Illness HPI narrative: 62 yo male with PMH of ETOH abuse, renal failure, ETOH pancreatitis, diabetes, HLD noted to have decreased responsiveness - EMS found BS in 50s and given D10 he is perking up more has chronic abdominal pain but had BM today and he cannot tell me what he ate. No other information provided. Has chronic abdominal pain at baseline. MD complaint: decreased responsiveness Onset (ago): unknown Severity: moderate Consistency of symptoms: unknown Context: alcohol abuse and diabetes Associated symptoms: other (chronic abdominal pain) Treatments prior to arrival: glucose Related Data Home Medications Medication Instructions Recorded Confirmed insulin lispro 100 unit/mL 0 sliding scale dose subcut QIDACHS 04/01/21 01/08/23 subcutaneous pen (Humalog KwikPen (U-100) Insulin) baclofen 10 mg tablet 20 mg PO BEDTIME 01/17/22 01/08/23 escitalopram oxalate 10 mg tablet 15 mg PO DAILY 01/17/22 01/08/23 albuterol sulfate 90 mcg/actuation 2 puff inhalation Q6H PRN Wheezing 04/25/22 0 01/08/23 aerosol inhaler cholecalciferol (vitamin D3) 25 25 mcg PO DAILY 04/25/22 01/08/23 mcg (1,000 unit) tablet cyanocobalamin (vitamin B-12) 1,000 mcg PO DAILY 04/25/22 01/08/23 1,000 mcg tablet,extended release ferrous sulfate 325 mg (65 mg 325 mg PO BID 04/25/22 01/08/23 iron) tablet folic acid 1 mg tablet 1 mg PO DAILY 04/25/22 01/08/23 lactulose 10 gram/15 mL (15 mL) 30 ml PO BID 04/25/22 01/08/23 oral solution lactulose 10 gram/15 mL (15 mL) 30 ml PO Q4H PRN Constipation 04/25/22 01/08/23 oral solution lorazepam 0.5 mg tablet 0.5 mg PO Q12H PRN Anxiety 04/25/22 01/08/23 melatonin 3 mg tablet 6 mg PO BEDTIME 04/25/22 01/08/23 multivitamin 1 tab PO DAILY 04/25/22 01/08/23 ondansetron HCl 4 mg tablet 4 mg PO Q8H PRN Nausea 04/25/22 01/08/23 oxycodone 5 mg tablet 5 mg PO Q6H PRN Pain 04/25/22 01/08/23 pantoprazole 40 mg tablet,delayed 40 mg PO DAILY 04/25/22 01/08/23 release (Protonix) polyethylene glycol 3350 17 gram 17 g PO BID 04/25/22 01/08/23 oral powder packet (Miralax) quetiapine 50 mg tablet 50 mg PO BID 04/25/22 01/08/23 sennosides 8.6 mg-docusate sodium 2 tab-cap PO BEDTIME 04/25/22 01/08/23 50 mg tablet (Senna-S) tamsulosin 0.4 mg capsule 0.4 mg PO BEDTIME 04/25/22 01/08/23 thiamine HCl (vitamin B1) 100 mg 100 mg PO DAILY 04/25/22 01/08/23 tablet gabapentin 800 mg tablet 800 mg PO TID 01/08/23 01/08/23 midodrine 5 mg tablet 5 mg PO TID 01/08/23 01/08/23 Previous Rx's Medication Instructions Recorded blood sugar diagnostic (FreeStyle #100 ea 06/23/21 Lite Strips) insulin glargine 100 unit/mL (3 35 unit (0.35 mL) subcut BEDTIME 01/09/23 mL) subcutaneous pen #15 mL morphine 15 mg tablet,extended 15 mg PO Q12H #6 tabs 01/09/23 release quetiapine 50 mg tablet 50 mg PO DAILY@1200 #1 tab 01/09/23 Allergies Allergy/AdvReac Type Severity Reaction Status Date / Time No Known Drug Allergies Allergy Unknown Verified 01/07/23 23:49 Review of Systems Review of Systems: Constitutional : No Weight loss, No Fever, No Chills ENT/Mouth : No sore throat, No Rhinorrhea Eyes: No Swelling, No Redness Cardiovascular : No Chest Pain, No SOB, NoEdema Respiratory : No Cough, No Sputum, No Wheezing Gastrointestinal : no Nausea, no Vomiting, no Diarrhea, positive abdominal Pain, No Hematochezia, No Melena Genitourinary : No Dysuria, No Urinary Frequency, No Hematuria, No Urgency Musculoskeletal : No joint pain, No Myalgias, No Joint Swelling Skin : No Skin Lesions, No rash Neuro : pos Weakness, No Numbness, No Dizziness, No Headache Psych : No Anxiety/Panic, No Depression Heme/Lymph: No Bruising, No Lymphadenopathy Endocrine : No Polyuria, No Polydipsia All other systems reviewed and are negative. [facility] Past Medical History Attestation statement: The following information was validated with the patient. Source: old records reviewed Medical History Acidosis, lactic Acute dehydration Acute hyperglycemia Alcohol abuse Alcohol abuse Alcohol dependence with withdrawal Alcohol use disorder, severe, dependence Alcoholic gastritis Attention deficit disorder Degenerative disc disease, cervical Depression Diabetes mellitus Dyslipidemia Falls Head injury History of substance abuse Hypomagnesemia Hypotestosteronism Osteoarthritis of right hand Pancreatic cyst Pancreatitis Prolonged QT interval Pseudocyst of pancreas Thrombocytopenia Vomiting Surgical History History of surgery Hx of colonoscopy Family History Family History Father Cancer Mother Cancer Diabetes Social History Social History Household Members: None Housing: Alf Do you presently have visiting nurse or other home services: No Unable to assess alcohol history related to: Refusing to respond Alcohol intake: unknown Patient Tobacco Use Status: Current everyday Tobacco user Tobacco use type: Cigar Cigarette Packs Per Day: 2 Cigarettes Per Day: 40.0 Years Smoked: 31 e-Cigarette/Vaping Use: Never Used Second Hand Smoke Exposure: No Substance Use Type: Marijuana Advance Directives: Yes Advance Directives on File: Yes Advance Directives Date on File: 03/05/21 service: No Current occupational status: unemployed and disabled Current occupation: Right Handed Physical Exam ED Vital Signs: Vital Signs - 24 hr 04/02/23 15:58 04/02/23 16:57 04/02/23 16:58 Temperature 98.4 F Pulse Rate 70 64 66 Respiratory Rate 12 12 12 Blood Pressure 119/75 107/63 Pulse Oximetry 97 96 Oxygen Delivery Method Room Air Room Air 04/02/23 18:05 04/02/23 20:41 Temperature 98.5 F Pulse Rate 72 Respiratory Rate 12 18 Blood Pressure 117/86 Pulse Oximetry 95 Oxygen Delivery Method Room Air BMI result Body Mass Index 28.2 Appearance: Alert. Oriented X3. No acute distress. has gained weight from the last time I saw him. Unkempt and disheveled. Eyes: Pupils equal, round and reactive to light. ENT: Pharynx normal. Neck: Normal inspection. Neck supple. CVS: Normal heart rate and rhythm. Pulses normal. Respiratory: No respiratory distress. Breath sounds slight exp wheezes noted. Abdomen: Soft and denies ttp Skin: Skin warm and dry. Normal skin color. Normal skin turgor. Extremities: 1+ bilateral pitting lower extremity edema. shiny venous skin stasis changes. Neuro: Oriented X 3. No motor deficit. No sensory deficit. Course Course Course Narrative: SNF states blood sugar was in 300s they gave insulin but then patient didn't eat. Medications Administered Discontinued Medications Generic Name Dose Route Start Last Admin Trade Name Freq PRN Reason Stop Dose Admin Albuterol/Ipratropium 3 ml 04/02/23 16:35 04/02/23 16:56 Albuterol/Iprat 2.5/0.5mg 3 Ml Ampul.Neb INHALE 04/02/23 16:36 3 ml ONCE ONE Administration Sodium Chloride 500 mls @ 500 mls/hr 04/02/23 19:15 04/02/23 19:21 Ns IV 04/02/23 20:14 500 mls/hr .Q1H JOSE Administration Iohexol 70 ml 04/02/23 20:05 04/02/23 20:05 Iohexol 350 Mg/Ml 100 Ml Infus..Btl IV 04/02/23 20:06 70 ml ONCE ONE Administration Medical Decision Making Medical Decision Making MDM Narrative: 62 yo male with PMH of ETOH abuse, renal failure, ETOH pancreatitis, diabetes, HLD comes in with c/o being weak and lethargic EMS noted BS in 50s given D10 and BS 95 in ED he is waking up he only notes a recent cough and some chronic abdominal pain but no n/v/d and he states he always has abdominal pain. He is very unkempt and I was shocked he came from a rehab facility. He denies fevers. He is still very sleepy but is alert and oriented x 3. He reports he did have a bowel movement today. Differential Diagnosis Differential Diagnoses: The differential diagnosis associated with the presentation includes medication, hepatic encephalopathy, metabolic encephalopathy, toxic encephalopathy Admission/Observation Consideration of admission/observation: Escalation of care including admission/observation considered work up negative still not at baseline on D5NS not eating will admit for further workup Consult Healthcare Provider Management of the patient was discussed with: Hospitalist agrees to admit Lab Data MDM Lab Attestation statement: I reviewed the patient's lab results. 04/02/23 16:38 04/02/23 16:38 Labs: Lab Results 04/02/23 04/02/23 04/02/23 Range/Units 15:57 16:38 16:38 WBC 9.0 (4.8-10.8) X10*3/uL RBC 3.14 L (4.60-5.80) X10*6/uL Hgb 10.1 L (14.0-18.0) g/dl Hct 29.9 L (42.0-52.0) % MCV 95.2 (80.0-98.0) fL MCH 32.2 (27.0-33.0) pg MCHC 33.8 (31.0-36.0) g/dl RDW 13.5 (11.0-16.0) % Plt Count 96 L (160-400) X10*3/uL MPV 10.8 (9.4-12.4) fL Immature Gran % (Auto) 0.3 (0.0-0.4) % Neut % (Auto) 67.6 (45-73) % Lymph % (Auto) 18.7 L (20-40) % [place] % (Auto) 10.5 (2-11) % Eos % (Auto) 2.6 (0-4) % Baso % (Auto) 0.3 (0-2) % Lymph # (Auto) 1.7 (1.2-4.9) X10*3/uL [place] # (Auto) 0.9 (0.1-1.2) X10*3/uL Eos # (Auto) 0.2 (0.0-0.4) X10*3/uL Baso # (Auto) 0.0 (0.0-0.2) X10*3/uL Abs Immat Gran (auto) 0.03 (0.00-0.03) X10*3/uL Absolute Neuts (auto) 6.1 (2.0-8.3) x10*3/uL Absolute Nucleated RBC 0.000 (0.0-0.012) X10*3/uL Nucleated RBC % (auto) 0.0 (0.0-0.2) /100WBC VBG pH (7.32-7.43) VBG pCO2 mmHg VBG pO2 mmHg VBG HCO3 (22-26) mmol/L VBG O2 Saturation % VBG Base Excess mmol/L Sodium 140 (135-145) mmol/L Potassium 4.2 (3.3-5.1) mmol/L Chloride 111 H (96-108) mmol/L Carbon Dioxide 22 (22-29) mmol/L Anion Gap 11 L (12-20) BUN 40 H (9-16) mg/dL Creatinine 1.66 H (0.5-1.4) mg/dL Estim Creat Clear Calc 46.2 Estimated GFR 42 POC Glucose 113 (60-115) mg/dL Fasting Glucose 120 H (60-99) mg/dL Calcium 9.2 (8.4-10.2) mg/dL Magnesium (1.6-2.6) mg/dL Total Bilirubin 0.5 (0.0-1.0) mg/dL AST 26 (5-37) U/L ALT 15 (0-40) U/L Alkaline Phosphatase 87 (39-117) U/L Ammonia (13-55) umol/L Total Protein 7.3 (6.5-8.0) g/dL Albumin 4.0 (3.5-5.0) g/dL Lipase (8-78) U/L Beta-Hydroxybutyrate 0.11 (0.02-0.27) mmol/L Urine Color Urine Appearance Urine pH (5.0-9.0) Ur Specific [place] (1.005-1.025) Urine Protein (Neg-Trace) mg/dL Urine Glucose (UA) (Negative) mg/dL Urine Ketones (Negative) mg/dL Urine Blood (Negative) Urine Nitrite (Negative) Ur Leukocyte Esterase (Negative) Urine Opiates Screen (Not Detect) Urine Fentanyl Screen (Not Detect) Ur Barbiturates Screen (Not Detect) Ur Phencyclidine Scrn (Not Detect) Ur Amphetamines Screen (Not Detect) U Benzodiazepines Scrn (Not Detect) Urine Cocaine Screen (Not Detect) U Marijuana (THC) Screen (Not Detect) 04/02/23 04/02/23 04/02/23 Range/Units 16:38 16:38 16:39 WBC (4.8-10.8) X10*3/uL RBC (4.60-5.80) X10*6/uL Hgb (14.0-18.0) g/dl Hct (42.0-52.0) % MCV (80.0-98.0) fL MCH (27.0-33.0) pg MCHC (31.0-36.0) g/dl RDW (11.0-16.0) % Plt Count (160-400) X10*3/uL MPV (9.4-12.4) fL Immature Gran % (Auto) (0.0-0.4) % Neut % (Auto) (45-73) % Lymph % (Auto) (20-40) % [place] % (Auto) (2-11) % Eos % (Auto) (0-4) % Baso % (Auto) (0-2) % Lymph # (Auto) (1.2-4.9) X10*3/uL [place] # (Auto) (0.1-1.2) X10*3/uL Eos # (Auto) (0.0-0.4) X10*3/uL Baso # (Auto) (0.0-0.2) X10*3/uL Abs Immat Gran (auto) (0.00-0.03) X10*3/uL Absolute Neuts (auto) (2.0-8.3) x10*3/uL Absolute Nucleated RBC (0.0-0.012) X10*3/uL Nucleated RBC % (auto) (0.0-0.2) /100WBC VBG pH 7.36 (7.32-7.43) VBG pCO2 38 mmHg VBG pO2 99 mmHg VBG HCO3 22 (22-26) mmol/L VBG O2 Saturation 96.0 % VBG Base Excess -2.9 mmol/L Sodium (135-145) mmol/L Potassium (3.3-5.1) mmol/L Chloride (96-108) mmol/L Carbon Dioxide (22-29) mmol/L Anion Gap (12-20) BUN (9-16) mg/dL Creatinine (0.5-1.4) mg/dL Estim Creat Clear Calc Estimated GFR POC Glucose (60-115) mg/dL Fasting Glucose (60-99) mg/dL Calcium (8.4-10.2) mg/dL Magnesium 2.4 (1.6-2.6) mg/dL Total Bilirubin (0.0-1.0) mg/dL AST (5-37) U/L ALT (0-40) U/L Alkaline Phosphatase (39-117) U/L Ammonia 54 (13-55) umol/L Total Protein (6.5-8.0) g/dL Albumin (3.5-5.0) g/dL Lipase 46 (8-78) U/L Beta-Hydroxybutyrate (0.02-0.27) mmol/L Urine Color Urine Appearance Urine pH (5.0-9.0) Ur Specific [place] (1.005-1.025) Urine Protein (Neg-Trace) mg/dL Urine Glucose (UA) (Negative) mg/dL Urine Ketones (Negative) mg/dL Urine Blood (Negative) Urine Nitrite (Negative) Ur Leukocyte Esterase (Negative) Urine Opiates Screen (Not Detect) Urine Fentanyl Screen (Not Detect) Ur Barbiturates Screen (Not Detect) Ur Phencyclidine Scrn (Not Detect) Ur Amphetamines Screen (Not Detect) U Benzodiazepines Scrn (Not Detect) Urine Cocaine Screen (Not Detect) U Marijuana (THC) Screen (Not Detect) 04/02/23 04/02/23 04/02/23 Range/Units 17:01 17:52 18:08 WBC (4.8-10.8) X10*3/uL RBC (4.60-5.80) X10*6/uL Hgb (14.0-18.0) g/dl Hct (42.0-52.0) % MCV (80.0-98.0) fL MCH (27.0-33.0) pg MCHC (31.0-36.0) g/dl RDW (11.0-16.0) % Plt Count (160-400) X10*3/uL MPV (9.4-12.4) fL Immature Gran % (Auto) (0.0-0.4) % Neut % (Auto) (45-73) % Lymph % (Auto) (20-40) % [place] % (Auto) (2-11) % Eos % (Auto) (0-4) % Baso % (Auto) (0-2) % Lymph # (Auto) (1.2-4.9) X10*3/uL [place] # (Auto) (0.1-1.2) X10*3/uL Eos # (Auto) (0.0-0.4) X10*3/uL Baso # (Auto) (0.0-0.2) X10*3/uL Abs Immat Gran (auto) (0.00-0.03) X10*3/uL Absolute Neuts (auto) (2.0-8.3) x10*3/uL Absolute Nucleated RBC (0.0-0.012) X10*3/uL Nucleated RBC % (auto) (0.0-0.2) /100WBC VBG pH (7.32-7.43) VBG pCO2 mmHg VBG pO2 mmHg VBG HCO3 (22-26) mmol/L VBG O2 Saturation % VBG Base Excess mmol/L Sodium (135-145) mmol/L Potassium (3.3-5.1) mmol/L Chloride (96-108) mmol/L Carbon Dioxide (22-29) mmol/L Anion Gap (12-20) BUN (9-16) mg/dL Creatinine (0.5-1.4) mg/dL Estim Creat Clear Calc Estimated GFR POC Glucose 84 95 (60-115) mg/dL Fasting Glucose (60-99) mg/dL Calcium (8.4-10.2) mg/dL Magnesium (1.6-2.6) mg/dL Total Bilirubin (0.0-1.0) mg/dL AST (5-37) U/L ALT (0-40) U/L Alkaline Phosphatase (39-117) U/L Ammonia (13-55) umol/L Total Protein (6.5-8.0) g/dL Albumin (3.5-5.0) g/dL Lipase (8-78) U/L Beta-Hydroxybutyrate (0.02-0.27) mmol/L Urine Color Urine Appearance Urine pH (5.0-9.0) Ur Specific [place] (1.005-1.025) Urine Protein (Neg-Trace) mg/dL Urine Glucose (UA) (Negative) mg/dL Urine Ketones (Negative) mg/dL Urine Blood (Negative) Urine Nitrite (Negative) Ur Leukocyte Esterase (Negative) Urine Opiates Screen POSITIVE H (Not Detect) Urine Fentanyl Screen Not Detected (Not Detect) Ur Barbiturates Screen Not Detected (Not Detect) Ur Phencyclidine Scrn Not Detected (Not Detect) Ur Amphetamines Screen Not Detected (Not Detect) U Benzodiazepines Scrn Not Detected (Not Detect) Urine Cocaine Screen Not Detected (Not Detect) U Marijuana (THC) Screen Not Detected (Not Detect) 04/02/23 04/02/23 04/02/23 Range/Units 18:08 19:12 20:39 WBC (4.8-10.8) X10*3/uL RBC (4.60-5.80) X10*6/uL Hgb (14.0-18.0) g/dl Hct (42.0-52.0) % MCV (80.0-98.0) fL MCH (27.0-33.0) pg MCHC (31.0-36.0) g/dl RDW (11.0-16.0) % Plt Count (160-400) X10*3/uL MPV (9.4-12.4) fL Immature Gran % (Auto) (0.0-0.4) % Neut % (Auto) (45-73) % Lymph % (Auto) (20-40) % [place] % (Auto) (2-11) % Eos % (Auto) (0-4) % Baso % (Auto) (0-2) % Lymph # (Auto) (1.2-4.9) X10*3/uL [place] # (Auto) (0.1-1.2) X10*3/uL Eos # (Auto) (0.0-0.4) X10*3/uL Baso # (Auto) (0.0-0.2) X10*3/uL Abs Immat Gran (auto) (0.00-0.03) X10*3/uL Absolute Neuts (auto) (2.0-8.3) x10*3/uL Absolute Nucleated RBC (0.0-0.012) X10*3/uL Nucleated RBC % (auto) (0.0-0.2) /100WBC VBG pH (7.32-7.43) VBG pCO2 mmHg VBG pO2 mmHg VBG HCO3 (22-26) mmol/L VBG O2 Saturation % VBG Base Excess mmol/L Sodium (135-145) mmol/L Potassium (3.3-5.1) mmol/L Chloride (96-108) mmol/L Carbon Dioxide (22-29) mmol/L Anion Gap (12-20) BUN (9-16) mg/dL Creatinine (0.5-1.4) mg/dL Estim Creat Clear Calc Estimated GFR POC Glucose 86 71 (60-115) mg/dL Fasting Glucose (60-99) mg/dL Calcium (8.4-10.2) mg/dL Magnesium (1.6-2.6) mg/dL Total Bilirubin (0.0-1.0) mg/dL AST (5-37) U/L ALT (0-40) U/L Alkaline Phosphatase (39-117) U/L Ammonia (13-55) umol/L Total Protein (6.5-8.0) g/dL Albumin (3.5-5.0) g/dL Lipase (8-78) U/L Beta-Hydroxybutyrate (0.02-0.27) mmol/L Urine Color Yellow Urine Appearance Clear Urine pH 5.5 (5.0-9.0) Ur Specific [place] 1.015 (1.005-1.025) Urine Protein Negative (Neg-Trace) mg/dL Urine Glucose (UA) 100 H (Negative) mg/dL Urine Ketones Negative (Negative) mg/dL Urine Blood Negative (Negative) Urine Nitrite Negative (Negative) Ur Leukocyte Esterase Negative (Negative) Urine Opiates Screen (Not Detect) Urine Fentanyl Screen (Not Detect) Ur Barbiturates Screen (Not Detect) Ur Phencyclidine Scrn (Not Detect) Ur Amphetamines Screen (Not Detect) U Benzodiazepines Scrn (Not Detect) Urine Cocaine Screen (Not Detect) U Marijuana (THC) Screen (Not Detect) ABG Data Attestation ABG: I personally reviewed and interpreted this ABG as follows: Interpretation: VBG no retention Independent Interpretation I performed an independent interpretation of an: EKG, Plain X-Ray and CT Scan (no ICH, no sig change in aneurysm) Interpretation: Rate: 67 Rhythm: NSR [place]: normal Normal P waves. Normal RICARDO. Normal QRS complex. ST T wave : normal no LUIS FERNANDO qTC: normal prior studies: no acute ischemia The study has been interpreted contemporaneously by me. . Radiology Impression Discussion of test interpretation with radiology: I discussed test interpretation with the radiologist and I have reviewed the radiologist's reading. Radiologist Impression: radiologist sees aneurysm wants CTA Independent Historian Clinical information obtained from an independent historian. History obtained from or confirmed by: EMS External Record Review External record reviewed: Inpatient record Discharge Plan Discharge Clinical Impression: Encephalopathy Patient Disposition: Admitted As Inpatient Prescriptions: No Action (DME) FreeStyle Lite Strips Strip See Rx Instructions .Route Qty: 100 6RF Rx Instructions: As directed- In Vitro to test blood sugars TID insulin lispro [Humalog KwikPen Insulin] 100 unit/mL Insulin Pen 0 sliding scale dose SUBCUT QIDACHS Protocol: Insulin Correction Scale Less than or equal to 110 ---- Give (units): 0 111 to 150 Give (units): 0 151 to 200 Give (units): 1 201 to 250 Give (units): 2 251 to 300 Give (units): 4 301 to 350 Give (units): 6 Greater than 350 Give (units): 10 Call MD if Blood Glucose > : 350 baclofen 10 mg Tablet 20 mg PO BEDTIME escitalopram oxalate 10 mg Tablet 15 mg PO DAILY multivitamin Tablet 1 tab PO DAILY cyanocobalamin (vitamin B-12) 1,000 mcg Tablet Extended Release 1,000 mcg PO DAILY polyethylene glycol 3350 [Miralax] 17 gram Powder In Packet 17 g PO BID ondansetron HCl 4 mg Tablet 4 mg PO Q8H PRN (Reason: Nausea) sennosides-docusate sodium [Senna-S] 8.6-50 mg Tablet 2 tab-cap PO BEDTIME thiamine HCl (vitamin B1) 100 mg Tablet 100 mg PO DAILY melatonin 3 mg Tablet 6 mg PO BEDTIME lorazepam 0.5 mg Tablet 0.5 mg PO Q12H PRN (Reason: Anxiety) tamsulosin 0.4 mg Capsule 0.4 mg PO BEDTIME pantoprazole [Protonix] 40 mg Tablet,Delayed Release (Dr/Ec) 40 mg PO DAILY ferrous sulfate 325 mg (65 mg iron) Tablet 325 mg PO BID folic acid 1 mg Tablet 1 mg PO DAILY albuterol sulfate 90 mcg/actuation Hfa Aerosol Inhaler 2 puff INHALATION Q6H PRN (Reason: Wheezing) oxycodone 5 mg Tablet 5 mg PO Q6H PRN (Reason: Pain) quetiapine 50 mg Tablet 50 mg PO BID cholecalciferol (vitamin D3) 25 mcg (1,000 unit) Tablet 25 mcg PO DAILY lactulose 10 gram/15 mL (15 mL) Solution 30 ml PO Q4H PRN (Reason: Constipation) lactulose 10 gram/15 mL (15 mL) Solution 30 ml PO BID midodrine 5 mg Tablet 5 mg PO TID Rx Instructions: do not give last dose of day after 6PM or within 4 hrs of bedtime gabapentin 800 mg Tablet 800 mg PO TID quetiapine 50 mg Tablet 50 mg PO DAILY@1200 Qty: 1 0RF insulin glargine 100 unit/mL (3 mL) Insulin Pen 35 unit SUBCUT BEDTIME Qty: 15 0RF morphine 15 mg Tablet Extended Release 15 mg PO Q12H Qty: 6 0RF Rx Instructions: Partial Fill upon patient request.
[2023-04-02 17:56] LABS: Glucose, Whole Blood 95 mg/dL (60-115)
[2023-04-02 18:05] VITALS: BP 117/86; PULSE 72; RESP 12; TEMP 36.9; O2SAT 95
[2023-04-02 18:08] LABS: Beta-Hydroxybutyrate 0.11 mmol/L (0.02-0.27)
[2023-04-02 18:20] LABS: Appearance Urine Clear; Color Urine Yellow; Glucose Urine UA 100 mg/dL (Negative); Leukocyte Esterase Urine Negative (Negative); Nitrite Urine Negative (Negative); PH 5.5 (5.0-9.0); Specific Gravity - Urine 1.015 (1.005-1.025); Urine Blood Negative (Negative); Urine Ketones Negative (Negative); Urine Protein Negative (Neg-Trace)
[2023-04-02 18:28] LABS: Amphetamine Screen Urine Not Detected (Not Detect); Barbiturates, Urine Not Detected (Not Detect); Benzodiazepines Screen Urine Not Detected (Not Detect); Cannabinoid Screen Urine Not Detected (Not Detect); Cocaine Screen Urine Not Detected (Not Detect); Fentanyl, urine Not Detected (Not Detect); Opiate Screen Urine POSITIVE (Not Detect); Phencyclidine Screen Urine Not Detected (Not Detect)
[2023-04-02 18:44] LABS: Magnesium 2.4 mg/dL (1.6-2.6)
--- NOTE | 2023-04-02 19:13 | ECG_ITS ---
Test Reason : AMS Blood Pressure : / mmHG Vent. Rate : 067 BPM Atrial Rate : 067 BPM P-R Int : 196 ms QRS Dur : 092 ms QT Int : 442 ms P-R-T Axes : -07 038 035 degrees QTc Int : 467 ms Normal sinus rhythm Normal ECG When compared with ECG of 07-JAN-2023 23:49, No significant change was found Referred By: Radha Forrest Electronically Signed By:Paolo Montaño
[2023-04-02 19:20] LABS: Glucose, Whole Blood 86 mg/dL (60-115)
[2023-04-02] MEDS: 0.9 % Sodium Chloride 500 ML IV (19:21)
[2023-04-02] MEDS: iohexoL 350 MG/ML 100 ML INFUS..BTL 70 ML IV (20:05)
[2023-04-02 20:41] VITALS: RESP 18
[2023-04-02 20:42] LABS: Glucose, Whole Blood 71 mg/dL (60-115)
[2023-04-02] MEDS: Dextrose 5 % and 0.9 % NaCl 1,000 ML 100 ML IVCONT (20:54)
[2023-04-02 20:57] VITALS: BP 104/74; PULSE 60; RESP 17; TEMP 36.1; O2SAT 100
[2023-04-02] MEDS: Lactulose 20 GM/30 ML SOLUTION PO (22:10)
[2023-04-02 22:20] LABS: Glucose, Whole Blood 94 mg/dL (60-115)
[2023-04-02 22:31] LABS: VBG Base Excess -3.8 mmol/L; VBG HCO3 22 mmol/L (22-26); VBG pCO2 45 mmHg; VBG pO2 54 mmHg
[2023-04-02 22:35] LABS: Venous Blood Gas Refer to POC result
[2023-04-02] MEDS: oxyCODONE HCl Immed Release 5 MG TABLET PO (23:42)
[2023-04-02] MEDS: Heparin Sodium,Porcine 5,000 UNIT/ML VIAL 5000 UNIT SUBCUT (23:43)
[2023-04-03] MEDS: Gabapentin 400 MG CAPSULE 800 MG PO ×3 (03:20→20:43)
[2023-04-03 03:54] VITALS: BP 114/61; PULSE 60; RESP 17; TEMP 37; O2SAT 94
[2023-04-03 03:59] LABS: Glucose, Whole Blood 146 mg/dL (60-115)
[2023-04-03 06:17] VITALS: BP 124/87; PULSE 65; RESP 17; TEMP 36.7; O2SAT 98
[2023-04-03 06:27] LABS: Glucose, Whole Blood 137 mg/dL (60-115)
[2023-04-03 06:36] LABS: MANUAL DIFF FLAG NO
--- NOTE | 2023-04-03 06:37 | P.HPHOSP_ITS ---
History of Present Illness Date of Service: 04/03/23 Chief Complaint: confused 62-year-old male with past medical history of alcohol abuse, depression, diabetes, thrombocytopenia, comes into the hospital from rehab center with confusion hypoglycemia. Patient comes in from facility for increased confusion, he is sleeping, arousable to painful stimuli, but falls right back asleep. Appears but the facility called EMS for increased lethargy and confusion arrival of EMS patient was found to be hypoglycemic wit he was given D10 and brought to the hospital. A getting more details from the facility, patient had received his insulin without eating which is likely will cause his hypoglycemia. In the hospital patient was placed on D5 and remains low glucose between 50-90. On arrival to the ED patient hemodynamically stable with no significant abnormal vitals Labs are significant for creatinine of 1.66 which is higher than his recent otherwise unremarkable head and neck CT angiogram shows stable redemonstration appearance of the basilar tip aneurysm measuring up to 9 mm, your interventional follow-up is recommended enlarged thyroid gland of 3.8 cm, chest x-ray negative Review of Systems Review of Systems: Yes all other systems are reviewed and are negative [facility] Medical History Acidosis, lactic Acute dehydration Acute hyperglycemia Alcohol abuse Alcohol abuse Alcohol dependence with withdrawal Alcohol use disorder, severe, dependence Alcoholic gastritis Attention deficit disorder Degenerative disc disease, cervical Depression Diabetes mellitus Dyslipidemia Falls Head injury History of substance abuse Hypomagnesemia Hypotestosteronism Osteoarthritis of right hand Pancreatic cyst Pancreatitis Prolonged QT interval Pseudocyst of pancreas Thrombocytopenia Vomiting Family History Father Cancer Mother Cancer Diabetes Surgical History History of surgery Hx of colonoscopy Social History Household Members: None Housing: [facility] Do you presently have visiting nurse or other home services: No Unable to assess alcohol history related to: Refusing to respond Alcohol intake: unknown Patient Tobacco Use Status: Current everyday Tobacco user Tobacco use type: Cigar Cigarette Packs Per Day: 2 Cigarettes Per Day: 40.0 Years Smoked: 31 e-Cigarette/Vaping Use: Never Used Second Hand Smoke Exposure: No Substance Use Type: Marijuana Advance Directives: Yes Advance Directives on File: Yes Advance Directives Date on File: 03/05/21 service: No Current occupational status: unemployed and disabled Current occupation: Right Handed Meds Allergies Allergy/AdvReac Type Severity Reaction Status Date / Time No Known Drug Allergies Allergy Unknown Verified 01/07/23 23:49 Active Medications: Current Medications Acetaminophen (Acetaminophen 325 Mg Tablet) 650 mg PO Q6H PRN PRN Reason: Pain, Mild (Pain Scale 1-3) Dextrose (Dextrose 50 % 25 Gm/50 Ml Syringe) 25 gm IVPUSH Q15M PRN; Protocol PRN Reason: per Hypoglycemia Standing Ord. Docusate Sodium (Docusate Sodium 100 Mg Capsule) 100 mg PO DAILY PRN PRN Reason: Constipation Glucose (Glucose Gel 15 Gm Gel..Gram.) 15 gm PO Q15M PRN; Protocol PRN Reason: per Hypoglycemia Standing Ord. Heparin Sodium (Porcine) (Heparin Sodium,Porcine 5,000 Unit/Ml Vial) 5,000 unit SUBCUT Q12H [facility] Last Admin: 04/02/23 23:43 Dose: 5,000 unit Dextrose/Sodium Chloride (D5ns) 1,000 mls @ 100 mls/hr IVCONT .Q10H [facility] Last Admin: 04/02/23 20:54 Dose: 100 mls/hr Insulin Human Lispro (Insulin Lispro 100 Unit/Ml 3 Ml Vial) 0 unit SUBCUT QIDACHS [facility]; Protocol Ondansetron HCl (Ondansetron Hcl 4 Mg/2 Ml Vial) 4 mg IVPUSH Q8H PRN PRN Reason: Nausea and Vomiting Sodium Chloride (0.9 % Sodium Chloride Flush 3 Ml Syringe) 3 ml IVFLUSH QSHIFT [facility] Last Admin: 04/03/23 01:00 Dose: Not Given Home Medications Medication Instructions Recorded Confirmed Last Taken Type insulin lispro 100 unit/mL 0 sliding scale dose subcut QIDACHS 04/01/21 04/02/23 05/26/21 History subcutaneous pen (Humalog KwikPen (U-100) Insulin) baclofen 10 mg tablet 20 mg PO BEDTIME 01/17/22 04/02/23 Unknown History escitalopram oxalate 10 mg tablet 15 mg PO DAILY 01/17/22 04/02/23 Unknown History albuterol sulfate 90 mcg/actuation 2 puff inhalation Q6H PRN Wheezing 04/25/22 04/02/23 Unknown History aerosol inhaler cholecalciferol (vitamin D3) 25 25 mcg PO DAILY 04/25/22 04/02/23 Unknown History mcg (1,000 unit) tablet cyanocobalamin (vitamin B-12) 1,000 mcg PO DAILY 04/25/22 04/02/23 Unknown History 1,000 mcg tablet,extended release ferrous sulfate 325 mg (65 mg 325 mg PO BID 04/25/22 04/02/23 Unknown History iron) tablet folic acid 1 mg tablet 1 mg PO DAILY 04/25/22 04/02/23 Unknown History lactulose 10 gram/15 mL (15 mL) 30 ml PO BID 04/25/22 04/02/23 Unknown History oral solution lactulose 10 gram/15 mL (15 mL) 30 ml PO Q4H PRN Constipation 04/25/22 04/02/23 Unknown History oral solution lorazepam 0.5 mg tablet 0.5 mg PO Q12H PRN Anxiety 04/25/22 04/02/23 Unknown History melatonin 3 mg tablet 6 mg PO BEDTIME 04/25/22 04/02/23 Unknown History multivitamin 1 tab PO DAILY 04/25/22 04/02/23 Unknown History ondansetron HCl 4 mg tablet 4 mg PO Q8H PRN Nausea 04/25/22 04/02/23 Unknown History oxycodone 5 mg tablet 5 mg PO Q6H PRN Pain 04/25/22 04/02/23 Unknown History pantoprazole 40 mg tablet,delayed 40 mg PO DAILY 04/25/22 04/02/23 Unknown History release (Protonix) polyethylene glycol 3350 17 gram 17 g PO BID 04/25/22 04/02/23 Unknown History oral powder packet (Miralax) quetiapine 50 mg tablet 50 mg PO BID 04/25/22 04/02/23 Unknown History sennosides 8.6 mg-docusate sodium 2 tab-cap PO BEDTIME 04/25/22 04/02/23 Unknown History 50 mg tablet (Senna-S) tamsulosin 0.4 mg capsule 0.4 mg PO BEDTIME 04/25/22 04/02/23 Unknown History thiamine HCl (vitamin B1) 100 mg 100 mg PO DAILY 04/25/22 04/02/23 Unknown History tablet gabapentin 800 mg tablet 800 mg PO TID 01/08/23 04/02/23 Unknown History midodrine 5 mg tablet 5 mg PO TID 01/08/23 04/02/23 Unknown History bisacodyl 10 mg rectal suppository 10 mg MS DAILY PRN Constipation 04/02/23 04/02/23 Unknown History dextrose 40 % oral gel (Glucose 15 g PO Q15M PRN Hypoglycemia 04/02/23 04/02/23 Unknown History Gel) glucagon 1 mg solution for 1 mg subcut Q20M PRN Hypoglycemia 04/02/23 04/02/23 Unknown History injection (GlucaGen HypoKit) insulin glargine 100 unit/mL (3 50 unit subcut BEDTIME 04/02/23 04/02/23 Unknown History mL) subcutaneous pen magnesium hydroxide 400 mg/5 mL 400 mg PO DAILY PRN Constipation 04/02/23 04/02/23 Unknown History oral suspension (Milk of Magnesia) morphine 15 mg tablet,extended 30 mg PO Q12H 04/02/23 04/02/23 Unknown History release naloxone 4 mg/actuation nasal 1 spray intranasal DAILY PRN 04/02/23 04/02/23 Unknown History spray (Narcan) Opioid Overdose sodium phosphates 19 gram-7 118 ml MS DAILY PRN Constipation 04/02/23 04/02/23 Unknown History gram/118 mL enema (Fleet Enema) spironolactone 100 mg tablet 100 mg PO DAILY 04/02/23 04/02/23 Unknown History Physical Exam Vital Signs and Narrative: Vital Signs: Last Vital Signs Temp 98.0 F 04/03/23 06:17 Pulse 65 04/03/23 06:17 Resp 17 04/03/23 06:17 BP 124/87 04/03/23 06:17 Pulse Ox 98 04/03/23 06:17 O2 Del Method Room Air 04/03/23 06:17 BMI result Body Mass Index 28.2 Const: Other: somnolent but arousable poor hygiene General: cooperative and no acute distress Eyes: General: appearance normal, both eyes and all related structures Resp: Effort & Inspection: normal respiratory effort Auscultation: clear to auscultation bilaterally Cardio: Rate: regular rate Rhythm: regular rhythm GI: Palpation (GI): Soft to palpation Auscultation: normal bowel sounds Skin: General skin exam: no rashes or lesions noted Neuro: Cognition (Neuro): normal cognition Extrem: General: Yes normal to inspection and Yes no pedal edema Results Labs 04/02/23 16:38 04/03/23 06:20 Labs: Laboratory Results - last 24 hr 04/02/23 04/02/23 04/02/23 15:57 16:38 16:38 MCV 95.2 MCH 32.2 MCHC 33.8 RDW 13.5 Plt Count 96 L MPV 10.8 Immature Gran % (Auto) 0.3 Neut % (Auto) 67.6 Lymph % (Auto) 18.7 L [place] % (Auto) 10.5 Eos % (Auto) 2.6 Baso % (Auto) 0.3 Lymph # (Auto) 1.7 [place] # (Auto) 0.9 Eos # (Auto) 0.2 Baso # (Auto) 0.0 Abs Immat Gran (auto) 0.03 Absolute Neuts (auto) 6.1 Absolute Nucleated RBC 0.000 Nucleated RBC % (auto) 0.0 VBG pH VBG pCO2 VBG pO2 VBG HCO3 VBG O2 Saturation VBG Base Excess Anion Gap 11 L Estim Creat Clear Calc 46.2 Estimated GFR 42 POC Glucose 113 Fasting Glucose 120 H Calcium 9.2 Magnesium Total Bilirubin 0.5 AST 26 ALT 15 Alkaline Phosphatase 87 Ammonia Total Protein 7.3 Albumin 4.0 Lipase Beta-Hydroxybutyrate 0.11 Urine Color Urine Appearance Urine pH Ur Specific [place] Urine Protein Urine Glucose (UA) Urine Ketones Urine Blood Urine Nitrite Ur Leukocyte Esterase Urine Opiates Screen Urine Fentanyl Screen Ur Barbiturates Screen Ur Phencyclidine Scrn Ur Amphetamines Screen U Benzodiazepines Scrn Urine Cocaine Screen U Marijuana (THC) Screen 04/02/23 04/02/23 04/02/23 16:38 16:38 16:39 MCV MCH MCHC RDW Plt Count MPV Immature Gran % (Auto) Neut % (Auto) Lymph % (Auto) [place] % (Auto) Eos % (Auto) Baso % (Auto) Lymph # (Auto) [place] # (Auto) Eos # (Auto) Baso # (Auto) Abs Immat Gran (auto) Absolute Neuts (auto) Absolute Nucleated RBC Nucleated RBC % (auto) VBG pH 7.36 VBG pCO2 38 VBG pO2 99 VBG HCO3 22 VBG O2 Saturation 96.0 VBG Base Excess -2.9 Anion Gap Estim Creat Clear Calc Estimated GFR POC Glucose Fasting Glucose Calcium Magnesium 2.4 Total Bilirubin AST ALT Alkaline Phosphatase Ammonia 54 Total Protein Albumin Lipase 46 Beta-Hydroxybutyrate Urine Color Urine Appearance Urine pH Ur Specific [place] Urine Protein Urine Glucose (UA) Urine Ketones Urine Blood Urine Nitrite Ur Leukocyte Esterase Urine Opiates Screen Urine Fentanyl Screen Ur Barbiturates Screen Ur Phencyclidine Scrn Ur Amphetamines Screen U Benzodiazepines Scrn Urine Cocaine Screen U Marijuana (THC) Screen 04/02/23 04/02/23 04/02/23 17:01 17:52 18:08 MCV MCH MCHC RDW Plt Count MPV Immature Gran % (Auto) Neut % (Auto) Lymph % (Auto) [place] % (Auto) Eos % (Auto) Baso % (Auto) Lymph # (Auto) [place] # (Auto) Eos # (Auto) Baso # (Auto) Abs Immat Gran (auto) Absolute Neuts (auto) Absolute Nucleated RBC Nucleated RBC % (auto) VBG pH VBG pCO2 VBG pO2 VBG HCO3 VBG O2 Saturation VBG Base Excess Anion Gap Estim Creat Clear Calc Estimated GFR POC Glucose 84 95 Fasting Glucose Calcium Magnesium Total Bilirubin AST ALT Alkaline Phosphatase Ammonia Total Protein Albumin Lipase Beta-Hydroxybutyrate Urine Color Urine Appearance Urine pH Ur Specific [place] Urine Protein Urine Glucose (UA) Urine Ketones Urine Blood Urine Nitrite Ur Leukocyte Esterase Urine Opiates Screen POSITIVE H Urine Fentanyl Screen Not Detected Ur Barbiturates Screen Not Detected Ur Phencyclidine Scrn Not Detected Ur Amphetamines Screen Not Detected U Benzodiazepines Scrn Not Detected Urine Cocaine Screen Not Detected U Marijuana (THC) Screen Not Detected 04/02/23 04/02/23 04/02/23 18:08 19:12 20:39 MCV MCH MCHC RDW Plt Count MPV Immature Gran % (Auto) Neut % (Auto) Lymph % (Auto) [place] % (Auto) Eos % (Auto) Baso % (Auto) Lymph # (Auto) [place] # (Auto) Eos # (Auto) Baso # (Auto) Abs Immat Gran (auto) Absolute Neuts (auto) Absolute Nucleated RBC Nucleated RBC % (auto) VBG pH VBG pCO2 VBG pO2 VBG HCO3 VBG O2 Saturation VBG Base Excess Anion Gap Estim Creat Clear Calc Estimated GFR POC Glucose 86 71 Fasting Glucose Calcium Magnesium Total Bilirubin AST ALT Alkaline Phosphatase Ammonia Total Protein Albumin Lipase Beta-Hydroxybutyrate Urine Color Yellow Urine Appearance Clear Urine pH 5.5 Ur Specific [place] 1.015 Urine Protein Negative Urine Glucose (UA) 100 H Urine Ketones Negative Urine Blood Negative Urine Nitrite Negative Ur Leukocyte Esterase Negative Urine Opiates Screen Urine Fentanyl Screen Ur Barbiturates Screen Ur Phencyclidine Scrn Ur Amphetamines Screen U Benzodiazepines Scrn Urine Cocaine Screen U Marijuana (THC) Screen 04/02/23 04/02/23 04/03/23 22:17 22:22 03:55 MCV MCH MCHC RDW Plt Count MPV Immature Gran % (Auto) Neut % (Auto) Lymph % (Auto) [place] % (Auto) Eos % (Auto) Baso % (Auto) Lymph # (Auto) [place] # (Auto) Eos # (Auto) Baso # (Auto) Abs Immat Gran (auto) Absolute Neuts (auto) Absolute Nucleated RBC Nucleated RBC % (auto) VBG pH 7.30 L VBG pCO2 45 VBG pO2 54 VBG HCO3 22 VBG O2 Saturation 84.0 VBG Base Excess -3.8 Anion Gap Estim Creat Clear Calc Estimated GFR POC Glucose 94 146 H Fasting Glucose Calcium Magnesium Total Bilirubin AST ALT Alkaline Phosphatase Ammonia Total Protein Albumin Lipase Beta-Hydroxybutyrate Urine Color Urine Appearance Urine pH Ur Specific [place] Urine Protein Urine Glucose (UA) Urine Ketones Urine Blood Urine Nitrite Ur Leukocyte Esterase Urine Opiates Screen Urine Fentanyl Screen Ur Barbiturates Screen Ur Phencyclidine Scrn Ur Amphetamines Screen U Benzodiazepines Scrn Urine Cocaine Screen U Marijuana (THC) Screen 04/03/23 06:24 MCV MCH MCHC RDW Plt Count MPV Immature Gran % (Auto) Neut % (Auto) Lymph % (Auto) [place] % (Auto) Eos % (Auto) Baso % (Auto) Lymph # (Auto) [place] # (Auto) Eos # (Auto) Baso # (Auto) Abs Immat Gran (auto) Absolute Neuts (auto) Absolute Nucleated RBC Nucleated RBC % (auto) VBG pH VBG pCO2 VBG pO2 VBG HCO3 VBG O2 Saturation VBG Base Excess Anion Gap Estim Creat Clear Calc Estimated GFR POC Glucose 137 H Fasting Glucose Calcium Magnesium Total Bilirubin AST ALT Alkaline Phosphatase Ammonia Total Protein Albumin Lipase Beta-Hydroxybutyrate Urine Color Urine Appearance Urine pH Ur Specific [place] Urine Protein Urine Glucose (UA) Urine Ketones Urine Blood Urine Nitrite Ur Leukocyte Esterase Urine Opiates Screen Urine Fentanyl Screen Ur Barbiturates Screen Ur Phencyclidine Scrn Ur Amphetamines Screen U Benzodiazepines Scrn Urine Cocaine Screen U Marijuana (THC) Screen Imaging Radiologist's Impressions: Impressions Chest X-Ray 04/02/23 16:54 IMPRESSION: 1. Low lung volumes with bibasilar subsegmental atelectasis. 2. No focal infiltrate, pleural effusion or pneumothorax. Head CT 04/02/23 18:51 IMPRESSION: Redemonstration of a basilar tip aneurysm, slightly increased in size since 01/08/2023. Recommend further evaluation with a CTA. This critical result was discussed with at 04/02/2023 7:09 PM and it was ascertained that the content and urgency of the report was understood at the time of direct communication. Head/Neck CTA 04/02/23 20:11 IMPRESSION: CT HEAD: No intracranial hemorrhage or large acute infarction. CTA NECK: No hemodynamically significant stenosis in the major arteries of the neck. Mild fusiform enlargement of the upper cervical right ICA is stable compared with 2017. 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 Neuro interventional follow-up is recommended. No new aneurysms. Additional findings: Dedicated thyroid ultrasound evaluation recommended for the significantly enlarged right lobe of the thyroid gland nodules measuring up to 3.8 cm. Assessment and Plan (1) Encephalopathy: Status: Acute (2) Acute renal failure: Status: Acute (3) Hypoglycemia: Status: Acute Plan 62-year-old male with past medical history as mentioned above comes into the hospital with encephalopathy after receiving mealtime insulin without eating # encephalopathy - acute - secondary to toxic metabolic encephalopathy in the setting of hypoglycemia - patient on glucose - monitor mentation - Ethan q.3 hours - ammonia levels normal, continue lactulose # acute renal failure - secondary to dehydration - IVF - follow BMP # hyperglycemia - in [place] to insulin mealtime, without eating - resume insulin once glucose - normalizes continue D5 NS - poc 3 hours # thyroid enlargement - as seen on CT scan, will obtain TSH, and thyroid ultrasound # brain aneurysm - increase in side but stable appearance - will need neuro surgery consult outpatient follow-up # Chronic pain - continue home pain medications # diabetes - continue home bedtime insulin, will place on low-dose sliding scale insulin can only get insulin once his POC normalizes DVT prophylaxis: heparin subQ Time Spent With Patient Time: Total time managing care of this patient today ____ minutes. Quality Stroke Does the patient have a stroke diagnosis?: No VTE Prior VTE?: No VTE Risk Level:: Medical - moderate - high VTE Device Contraindication: Treatment Not Indicated VTE Drug Contraindication: N/A - Med Ordered
[2023-04-03] MEDS: Dextrose 5 % and 0.9 % NaCl 1,000 ML 100 ML IVCONT (06:38)
[2023-04-03 06:42] LABS: Basophils Percent Auto 0.4 % (0-2); Eosinophils Absolute Auto 0.3 X10*3/uL (0.0-0.4); Hematocrit 31.3 % (42.0-52.0); Hemoglobin 10.4 g/dl (14.0-18.0); Imm Gran Abs Auto 0.02 X10*3/uL (0.00-0.03); Imm Gran Pct Auto 0.3 % (0.0-0.4); Lymphocytes Absolute Auto 1.5 X10*3/uL (1.2-4.9); Lymphocytes Percent Auto 22.8 % (20-40); Mean Corpuscular HGB Conc 33.2 g/dl (31.0-36.0); Mean Corpuscular Volume 96.3 fL (80.0-98.0); Monocytes Absolute Auto 0.7 X10*3/uL (0.1-1.2); Monocytes Percent Auto 10.7 % (2-11); Neutrophils Absolute Auto 4.2 x10*3/uL (2.0-8.3); Neutrophils Percent Auto 61.8 % (45-73); Platelet Count 103 X10*3/uL (160-400); Red Blood Count 3.25 X10*6/uL (4.60-5.80); Red Cell Distribution Width 13.7 % (11.0-16.0); White Blood Count 6.7 X10*3/uL (4.8-10.8)
[2023-04-03 06:56] LABS: Anion Gap 13 (12-20); Blood Urea Nitrogen 32 mg/dL (9-16); Calcium 8.9 mg/dL (8.4-10.2); Carbon Dioxide 20 mmol/L (22-29); Chloride 113 mmol/L (96-108); Creatinine Clr Calc Pharmacy 52.2; Estimated Glomerular Filt Rate 49; Glucose Random 141 mg/dL (60-115); Potassium 4.4 mmol/L (3.3-5.1); Sodium 142 mmol/L (135-145)
[2023-04-03 07:17] LABS: Thyroid Stimulating Hormone 0.94 uIU/mL (0.32-4.0)
--- NOTE | 2023-04-03 07:23 | PC.NURSE ---
Alert and oriented, BS 130, good po intake and appetite for breakfast. LR running per order. Denies sob or headahce. NSR on monitor. Reports 6/10 abdominal pain, requesting discharge back to long-term
[2023-04-03 07:24] LABS: Glucose, Whole Blood 130 mg/dL (60-115)
--- NOTE | 2023-04-03 08:11 | PHA.MEDREC ---
Pharmacy Consult ? Medication Reconciliation Pharmacy has completed the medication reconciliation. Patient with list from [facility], reviewed med rec done by nursing
[2023-04-03] MEDS: Escitalopram Oxalate 5 MG TABLET 15 MG PO (08:20)
[2023-04-03] MEDS: Lactulose 20 GM/30 ML SOLUTION PO (08:21)
[2023-04-03] MEDS: Midodrine HCl 5 MG TABLET PO ×3 (08:22→20:44)
[2023-04-03] MEDS: Morphine Sulfate ER 30 MG TABLET.ER PO ×2 (08:22→20:43)
[2023-04-03] MEDS: Folic Acid 1 MG TABLET PO (08:22)
[2023-04-03] MEDS: Cholecalciferol (Vitamin D3) 25 MCG TABLET PO (08:22)
[2023-04-03] MEDS: 0.9 % Sodium Chloride Flush 3 ML SYRINGE IVFLUSH ×3 (08:23→20:46)
[2023-04-03] MEDS: Spironolactone 25 MG TABLET 100 MG PO (08:27)
[2023-04-03] MEDS: polyethylene glycoL 3350 17 GM POWD.PACK PO (08:27)
[2023-04-03] MEDS: QUEtiapine Fumarate 50 MG TABLET PO ×2 (08:27→20:44)
[2023-04-03] MEDS: Ferrous Sulfate 324 MG TABLET.DR PO ×2 (08:27→20:44)
[2023-04-03] MEDS: Omeprazole 20 MG CAPSULE.DR PO (08:27)
[2023-04-03] MEDS: Thiamine HCL 100 MG TABLET PO (08:27)
[2023-04-03] MEDS: Cyanocobalamin (Vitamin B-12) 1,000 MCG TABLET 1000 MCG PO (08:27)
[2023-04-03] MEDS: Multivitamin TABLET 1 TAB PO (08:27)
[2023-04-03 09:58] LABS: Estimated Average Glucose 174 mg/dL; Hemoglobin A1c % 7.7 %
[2023-04-03 10:29] LABS: Glucose, Whole Blood 209 mg/dL (60-115)
[2023-04-03] MEDS: Ammonium Lactate 12 % Lotion 226 GM BOTTLE 1 APPL TOPICAL ×2 (10:54→20:41)
[2023-04-03 11:07] VITALS: BP 111/51; PULSE 57; RESP 14; O2SAT 95
[2023-04-03 11:52] LABS: Glucose, Whole Blood 188 mg/dL (60-115)
[2023-04-03] MEDS: Insulin Lispro 100 UNIT/ML 3 ML VIAL SUBCUT ×2 (11:53→17:28)
[2023-04-03] MEDS: Heparin Sodium,Porcine 5,000 UNIT/ML VIAL 5000 UNIT SUBCUT ×2 (11:54→20:45)
--- NOTE | 2023-04-03 12:19 | P.EN_ITS ---
Event Note Date of Service: 04/03/23 Event Note: Seen and evaluated Alert, oriented to self and place BS stable at this point Will DC IVF and let him eat Monitor POC A1c of 7.7 Thyroid US showing Enlarged heterogeneous right lobe. Interval increase in size in the solitary right thyroid nodule. This meets TI RADS criteria for fine- needle aspiration if not already performed. Time Spent With Patient Time: Total time managing care of this patient today ____ minutes.
--- NOTE | 2023-04-03 13:37 | MHC.CM.PN ---
MYA DELIVERED. YELLOW COPY SENT TO HCP LEVY BOWLING VIA MAIL. PT IS A LTC RESIDENT AT [facility]. PT IS LEGALLY BLIND AND USES W/C FOR MOBILITY. +HCP ON FILE PCP DR. MEJIA AT THE CENTER. PT VERY SLEEPY SO INFORMATION OBTAINED FROM ALT HCP HARVINDER BARAHONA (UNABLE TO REACH HCP LEVY) PER BROTHER/HCP HARVINDER, HE AND TIA WOULD LIKE TO SPEAK FURTHER WITH PT WHEN ABLE REGARDING MOLST (THE HCP FEELS HE SHOULD NOT BE A DO NOT HOSPITALIZE ) DP: PT WILL RETURN TO [facility] TO RESUME LTC PER HCP. TRANSPORT VIA BLS AT DC. CM WILL CONTINUE TO FOLLOW FOR ANY CHANGE IN DC NEEDS/PLAN
--- NOTE | 2023-04-03 15:18 | PC.NURSE ---
Report given to accepting unit, transport notified
[2023-04-03 15:47] VITALS: BP 133/70; PULSE 61; RESP 20; TEMP 36.3; O2SAT 95
[2023-04-03 16:21] LABS: Glucose, Whole Blood 190 mg/dL (60-115)
[2023-04-03 16:26] VITALS: BMI 28.3
[2023-04-03] MEDS: oxyCODONE HCl Immed Release 5 MG TABLET PO (17:28)
[2023-04-03] MEDS: LORazepam 0.5 MG TABLET PO (17:28)
[2023-04-03] MEDS: Acetaminophen 325 MG TABLET 650 MG PO (17:28)
[2023-04-03 19:51] VITALS: BP 129/85; PULSE 64; RESP 16; TEMP 36.6; O2SAT 95
[2023-04-03 20:24] LABS: Glucose, Whole Blood 255 mg/dL (60-115)
[2023-04-03] MEDS: Tamsulosin HCL 0.4 MG CAPSULE PO (20:43)
[2023-04-03] MEDS: Baclofen 20 MG TABLET PO (20:43)
[2023-04-03] MEDS: Melatonin 3 MG TABLET PO (20:44)
[2023-04-03] MEDS: Sennosides/Docusate Sodium TABLET 2 TAB PO (20:44)
[2023-04-03] MEDS: Insulin Glargine,Hum.rec.anlog 100 UNIT/ML 10 ML VIAL 35 UNIT SUBCUT (20:44)
[2023-04-04 02:48] VITALS: BP 107/66; PULSE 65; RESP 14; TEMP 36.8; O2SAT 96
[2023-04-04] MEDS: Omeprazole 20 MG CAPSULE.DR PO (06:31)
[2023-04-04 07:32] LABS: Glucose, Whole Blood 272 mg/dL (60-115)
[2023-04-04 08:00] VITALS: BP 120/71; PULSE 60; RESP 16; TEMP 36.6; O2SAT 95
[2023-04-04] MEDS: Insulin Lispro 100 UNIT/ML 3 ML VIAL SUBCUT (08:02)
[2023-04-04] MEDS: 0.9 % Sodium Chloride Flush 3 ML SYRINGE IVFLUSH (08:02)
[2023-04-04] MEDS: polyethylene glycoL 3350 17 GM POWD.PACK PO (08:02)
[2023-04-04] MEDS: Lactulose 20 GM/30 ML SOLUTION PO (08:02)
[2023-04-04] MEDS: QUEtiapine Fumarate 50 MG TABLET PO (08:03)
[2023-04-04] MEDS: Spironolactone 25 MG TABLET 100 MG PO (08:03)
[2023-04-04] MEDS: Folic Acid 1 MG TABLET PO (08:03)
[2023-04-04] MEDS: Cholecalciferol (Vitamin D3) 25 MCG TABLET PO (08:03)
[2023-04-04] MEDS: Midodrine HCl 5 MG TABLET PO (08:03)
[2023-04-04] MEDS: Escitalopram Oxalate 5 MG TABLET 15 MG PO (08:03)
[2023-04-04] MEDS: Cyanocobalamin (Vitamin B-12) 1,000 MCG TABLET 1000 MCG PO (08:03)
[2023-04-04] MEDS: Gabapentin 400 MG CAPSULE 800 MG PO (08:03)
[2023-04-04] MEDS: Morphine Sulfate ER 30 MG TABLET.ER PO (08:03)
[2023-04-04] MEDS: Multivitamin TABLET 1 TAB PO (08:03)
[2023-04-04] MEDS: Thiamine HCL 100 MG TABLET PO (08:03)
[2023-04-04] MEDS: Ferrous Sulfate 324 MG TABLET.DR PO (08:03)
[2023-04-04 08:04] LABS: Anion Gap 11 (12-20); Blood Urea Nitrogen 26 mg/dL (9-16); Calcium 9.1 mg/dL (8.4-10.2); Carbon Dioxide 24 mmol/L (22-29); Chloride 112 mmol/L (96-108); Creatinine Clr Calc Pharmacy 52.9; Estimated Glomerular Filt Rate 49; Glucose Random 277 mg/dL (60-115); Potassium 4.4 mmol/L (3.3-5.1); Sodium 143 mmol/L (135-145)
[2023-04-04] MEDS: Ammonium Lactate 12 % Lotion 226 GM BOTTLE 1 APPL TOPICAL (08:12)
--- NOTE | 2023-04-04 10:36 | MHC.CM.PN ---
PT CLEARED TO DC TODAY UPDATES SENT TO [facility]F [facility] THEY INDICATED THEY WOULD LIKE THE PT TO ARRIVE AFTER 1300 HOURS TRANSPORT BOOKED FOR 1330 VIA [facility] CM CALLED PTS HCP, TIA [phone] AND INFORMED HER OF DC/TIME
--- NOTE | 2023-04-04 11:00 | P.DS_ITS ---
DS: Providers Provider Date of Service: 04/04/23 Date of admission: 04/02/23 22:28 Primary care physician: Unknown Physician DS: Diagnosis Discharge Diagnosis (1) Encephalopathy: Status: Acute (2) Hypoglycemia: Status: Acute DS: Summary Hospital Course Hospital Course: Admission note HPI ?62-year-old male with past medical history of alcohol abuse, depression, diabetes, thrombocytopenia, comes into the hospital from? rehab center with confusion hypoglycemia.? Patient comes in from facility for? increased confusion, he is? sleeping, arousable to? painful stimuli, but falls right back asleep.? Appears but the facility called EMS for increased lethargy and confusion arrival of EMS patient was found to be hypoglycemic wit he was given D10 and brought to the hospital. ? A getting more details from the facility, patient had received his insulin without eating which is likely will cause his hypoglycemia. In the hospital patient was placed on D5 and remains low glucose between 50-90. ? On arrival to the ED patient hemodynamically stable with no significant abnormal vitals. Labs are significant for? creatinine of 1.66 which is higher? than his recent otherwise unremarkable ?head and neck CT angiogram shows stable? 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 the patient mentation improved back to baseline upon correcting his glucose level with PO and IV supplements. once that happened he was able to eat and maintained his glucose level >200. Lantus was decreased to 35 units though. Noticed to have Thyroid gland nodules on CT scan. further evaluated as Thyroid US showed?Enlarged heterogeneous right lobe. Interval increase in size in the solitary right thyroid nodule. This meets TI RADS criteria for fine-needle aspiration as outpatient. To plan a follow up visit with PCP. Encourage breathing exercises for evidence of atelactasis on CXR but no signs or symptoms to suggest lung injury. Decrease Lantus insulin to 45 units at bedtime and monitor glucose readings To follow up with PCP for thyroid gland nodules biopsy Time Spent with Patient Time attestation: Total time managing care of this patient today ____ minutes. Discharge coordination time: Less than 30 minutes Quality: Safe Use of Opioids Does Pt have an Active Cancer Diagnosis on the Problem List?: No Quality: Stroke Does the patient have a stroke diagnosis?: No Physical Exam Vital Signs: Vital Signs: Last Vital Signs Temp 97.8 F 04/04/23 08:00 Pulse 60 04/04/23 08:00 Resp 16 04/04/23 08:00 BP 120/71 04/04/23 08:00 Pulse Ox 95 04/04/23 08:00 O2 Del Method Room Air 04/04/23 08:00 BMI result Body Mass Index 28.3 Const: Other: Constitutional : Awake, interactive, not in distress Neck : Normal inspection, Supple Cardiovascular : RRR, no JVP, no lower extremity edema Respiratory : good bilateral air entry, no crackles, wheezes or rhonchi Gastrointestinal: soft, lax, Normal bowel sounds, Non tender Skin : Warm, Dry Neurological : Alert & oriented x3, No focal deficit DS: Data Data Completed and Pending Completed studies during hospitalization [Text1]: Procedures Detoxification Services for Substance Abuse Treatment (03/15/21) Transfusion of Nonautologous Platelets into Peripheral Vein, Percutaneous Approach (09/12/20) Labs on day of discharge: Laboratory Results - last 24 hr 04/03/23 04/03/23 04/03/23 11:47 16:16 20:21 Sodium Potassium Chloride Carbon Dioxide Anion Gap BUN Creatinine Estim Creat Clear Calc Estimated GFR POC Glucose 188 H 190 H 255 H Random Glucose Calcium 04/04/23 04/04/23 07:28 07:34 Sodium 143 Potassium 4.4 Chloride 112 H Carbon Dioxide 24 Anion Gap 11 L BUN 26 H Creatinine 1.45 H Estim Creat Clear Calc 52.9 Estimated GFR 49 POC Glucose 272 H Random Glucose 277 H Calcium 9.[address] scan - head: Radiologist's impression: ITS Impressions Chest X-Ray 04/02/23 16:54 IMPRESSION: 1. Low lung volumes with bibasilar subsegmental atelectasis. 2. No focal infiltrate, pleural effusion or pneumothorax. Head CT 04/02/23 18:51 IMPRESSION: Redemonstration of a basilar tip aneurysm, slightly increased in size since 01/08/2023. Recommend further evaluation with a CTA. This critical result was discussed with at 04/02/2023 7:09 PM and it was ascertained that the content and urgency of the report was understood at the time of direct communication. Head/Neck CTA 04/02/23 20:11 IMPRESSION: CT HEAD: No intracranial hemorrhage or large acute infarction. CTA NECK: No hemodynamically significant stenosis in the major arteries of the neck. Mild fusiform enlargement of the upper cervical right ICA is stable compared with 2017. 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 Neuro interventional follow-up is recommended. No new aneurysms. Additional findings: Dedicated thyroid ultrasound evaluation recommended for the significantly enlarged right lobe of the thyroid gland nodules measuring up to 3.8 cm. Thyroid Ultrasound 04/03/23 08:26 IMPRESSION: Enlarged heterogeneous right lobe. Interval increase in size in the solitary right thyroid nodule. This meets TI RADS criteria for fine-needle aspiration if not already performed. ACR TI-RADS RECOMMENDATION REFERENCE: Ultrasound-guided fine-needle aspiration, follow up ultrasound, no further followup. * TR1 (0 point) and TR2 (2 points): No FNA or followup * TR3 (3 points): FNA if more than or equal to 2.5 cm in maximum dimension, follow up ultrasound in 1, 3 and 5 years if 1.5 to 2.4 cm in maximum dimension. * TR4 (4-6 points): FNA if more than or equal to 1.5 cm in maximum dimension, follow up ultrasound in 1, 2, 3 and 5 years if 1 to 1.4 cm in maximum dimension. * TR5 (more than or equal to 7 points): FNA if more than or equal to 1 cm in maximum dimension, follow up ultrasound every year for 5 years if 0.5 to 0.9 cm in maximum dimension. * TR3, TR4 or TR5 nodules that are below the size threshold for follow up receive no followup. Discharge Plan Discharge Anticipated Discharge Date/Time: 04/04/23 10:49 Patient Disposition: Xfer SNF Discharge Diagnosis: Altered mentation Low sugar readings. Referrals: [facility] [Outside] Physician,Unknown J [Primary Care Provider] - 1 Week Discharge Medications: Continued (DME) FreeStyle Lite Strips Strip See Rx Instructions .Route Qty: 100 6RF Rx Instructions: As directed- In Vitro to test blood sugars TID insulin lispro [Humalog KwikPen Insulin] 100 unit/mL Insulin Pen 0 sliding scale dose SUBCUT QIDACHS Protocol: Insulin Correction Scale Less than or equal to 110 ---- Give (units): 0 111 to 150 Give (units): 0 151 to 200 Give (units): 2 201 to 250 Give (units): 4 251 to 300 Give (units): 6 301 to 350 Give (units): 8 Greater than 350 Give (units): 10 Call MD if Blood Glucose > : 350 baclofen 10 mg Tablet 20 mg PO BEDTIME escitalopram oxalate 10 mg Tablet 15 mg PO DAILY multivitamin Tablet 1 tab PO DAILY cyanocobalamin (vitamin B-12) 1,000 mcg Tablet Extended Release 1,000 mcg PO DAILY polyethylene glycol 3350 [Miralax] 17 gram Powder In Packet 17 g PO BID ondansetron HCl 4 mg Tablet 4 mg PO Q8H PRN (Reason: Nausea) sennosides-docusate sodium [Senna-S] 8.6-50 mg Tablet 2 tab-cap PO BEDTIME thiamine HCl (vitamin B1) 100 mg Tablet 100 mg PO DAILY melatonin 3 mg Tablet 3 mg PO BEDTIME lorazepam 0.5 mg Tablet 0.5 mg PO Q12H PRN (Reason: Anxiety) tamsulosin 0.4 mg Capsule 0.4 mg PO BEDTIME pantoprazole [Protonix] 40 mg Tablet,Delayed Release (Dr/Ec) 40 mg PO DAILY ferrous sulfate 325 mg (65 mg iron) Tablet 325 mg PO BID folic acid 1 mg Tablet 1 mg PO DAILY albuterol sulfate 90 mcg/actuation Hfa Aerosol Inhaler 2 puff INHALATION Q6H PRN (Reason: Wheezing) oxycodone 5 mg Tablet 5 mg PO Q6H PRN (Reason: Pain) quetiapine 50 mg Tablet 50 mg PO BID cholecalciferol (vitamin D3) 25 mcg (1,000 unit) Tablet 25 mcg PO DAILY lactulose 10 gram/15 mL (15 mL) Solution 30 ml PO Q4H PRN (Reason: Constipation) lactulose 10 gram/15 mL (15 mL) Solution 30 ml PO BID midodrine 5 mg Tablet 5 mg PO TID Rx Instructions: do not give last dose of day after 6PM or within 4 hrs of bedtime gabapentin 800 mg Tablet 800 mg PO TID spironolactone 100 mg Tablet 100 mg PO DAILY dextrose [Glucose Gel] 40 % Gel 15 g PO Q15M PRN (Reason: Hypoglycemia) Rx Instructions: until symptoms of low blood sugar are controlled magnesium hydroxide [Milk of Magnesia] 400 mg/5 mL Suspension 30 ml PO DAILY PRN (Reason: Constipation) Rx Instructions: Give 30 ml by mouth as needed for constipation (step 1) As needed if no bowel movement for three days. (Do not use for hemodialysis patients.) bisacodyl 10 mg Suppository 10 mg NH DAILY PRN (Reason: Constipation) Rx Instructions: insert 1 suppository rectally as needed for if no bowel movement for 8 hours after milk of magnesia Fleet Enema 19-7 gram/118 mL Enema 118 ml NH DAILY PRN (Reason: Constipation) Rx Instructions: insert 1 dose rectally as needed for constipation (step 3) as needed if no bowel movement for 8 hours after Bisacodyl suppository. GlucaGen HypoKit 1 mg Recon Soln 1 mg SUBCUT Q20M PRN (Reason: Hypoglycemia) Rx Instructions: Inject 1mg subcutaneously as needed for hypoglycemic protocol. Special instructions: Glucagen 1mg hypokit subcutaneous is FSBS below 60 and unable to swallow. Recheck FSBS in 10 minutes and update provider. naloxone [Narcan] 4 mg/actuation Halfway,Non-Aerosol 1 spray INTRANASAL DAILY PRN (Reason: Opioid Overdose) Rx Instructions: use as needed for respiratory depression/suspected opioid depression morphine 15 mg tablet extended release 30 mg PO BID Rx Instructions: Partial Fill upon patient request. insulin lispro 100 unit/mL Solution 10 unit SUBCUT TIDAC Changed insulin glargine 100 unit/mL (3 mL) insulin pen 45 unit SUBCUT BEDTIME Qty: 15 0RF Discharge Orders: Discharge Order (Routine); Ordered 04/04/23 Ordered By: Dawit Gomez Diet: Diabetic diet Activity on Discharge: As tolerated Stand Alone Forms: Patient Portal Discharge page Care Plan Goals: Read below Health Concerns: Read below Plan of Treatment: Read below Assessment: Decrease Lantus insulin to 45 units at bedtime and monitor glucose readings To follow up with PCP for thyroid gland nodules biopsy Discharge Date/Time: 04/04/23 14:27
[2023-04-04 11:34] LABS: Glucose, Whole Blood 133 mg/dL (60-115)
[2023-04-04] MEDS: Heparin Sodium,Porcine 5,000 UNIT/ML VIAL 5000 UNIT SUBCUT (11:41)
== END 2023-04-04 14:27 | disposition skilled nursing facility (03) ==
LOC: HO.ED 20:57 → HO.EDOVER 22:43 → HO.S3 04-03 13:24
PROVIDERS: Physician Assistant; Admitting Provider Internal Medicine; Emergency Provider Emergency Medicine; PCP Internal Medicine; Visit Provider Student in an Organized Health Care Education/Training Program
DX: E11.649 Type 2 diabetes mellitus with hypoglycemia without coma (principal); G93.41 Metabolic encephalopathy; N17.9 Acute kidney failure, unspecified; R41.82 Altered mental status, unspecified; E04.9 Nontoxic goiter, unspecified; I67.1 Cerebral aneurysm, nonruptured; E78.5 Hyperlipidemia, unspecified; R53.83 Other fatigue; F10.10 Alcohol abuse, uncomplicated; F17.200 Nicotine dependence, unspecified, uncomplicated; Z79.899 Other long term (current) drug therapy; Z79.4 Long term (current) use of insulin; Z71.6 Tobacco abuse counseling
CPT/HCPCS: 36415; 70450; 70496; 70498; 71045; 76536; 80048; 80053; 80307; 81003; 82010; 82140; 82803; 82947; 83036; 83690; 83735; 84443; 85025; 93005; 94640; 96360; 96361; 96372; 99221; 99285; J1643; Q9967

== ENCOUNTER → 2023-04-02 19:13 | Outpatient (BNV) | payer MEDICAID, SELFPAY | PROVIDERS: Admitting Provider Internal Medicine; Emergency Provider Emergency Medicine; Visit Provider Internal Medicine Cardiovascular Disease | DX: R41.82 Altered mental status, unspecified (principal) | CPT/HCPCS: 93010 ==

== ENCOUNTER → 2023-04-02 22:28 | Outpatient (BNV) | payer MEDICAID, SELFPAY | PROVIDERS: Admitting Provider Internal Medicine; Emergency Provider Emergency Medicine; Visit Provider Internal Medicine | DX: E11.649 Type 2 diabetes mellitus with hypoglycemia without coma (principal); G93.40 Encephalopathy, unspecified | CPT/HCPCS: 99222; 99239; 99499 ==

== ENCOUNTER 2025-02-01 15:30 | Emergency (ER) | payer MEDICAID, SELFPAY ==
--- NOTE | ~2025-02-01 | XR_ITS ---
CLINICAL HISTORY: transient hypoxia 1 view chest x-ray. Comparison: None Findings: There is subsegmental right basilar atelectasis. Lungs appear otherwise clear. Cardiomediastinal silhouette is within normal limits. IMPRESSION: Subsegmental right basilar atelectasis. Otherwise no acute cardiopulmonary abnormality. This document has been electronically signed by: Leland Agrawal MD on 02/01/2025 20:23:03
[2025-02-01 16:06] VITALS: BP 107/68; BP 148/86; PULSE 110; PULSE 95; RESP 14; TEMP 36.8; O2SAT 94; BMI 33.7
[2025-02-01 16:11] VITALS: BP 107/68; PULSE 95; RESP 14; TEMP 36.8; O2SAT 94
--- NOTE | 2025-02-01 16:14 | PC.NURSE ---
pt partially changed over in room 4 by Danny dougherty, allowed to keep pants, pat down by DANNY.
--- NOTE | 2025-02-01 16:15 | PC.NURSE ---
Patient alert and repsonsive. Patient presents to ED from SNF, Patient was aggressive at [facility]. SNF suspected patient of sneaking alcohol in facility. Facility has no alcohol policy. Patient finished nips before arrival. Patient was agitated on arrival and was changed over by security on arrival belongings in [place]. PMH ETOH, depression, diabetes, thrombocytopenia. PAtient on rack cleaner NSR. Patient O2 3L 94% RR 17. Patient c/o SOB, patient wears O2 baseline 3L. Patient c/o pain in pancreas and liver rated 10/10 non radiating. VSS and up to date. Plan of care on going.
--- NOTE | 2025-02-01 16:23 | PC.NURSE ---
[facility]
--- NOTE | 2025-02-01 16:47 | ED.ALCOHOL ---
HPI - Alcohol General Chief Complaint: ETOH/Substance Use Stated Complaint: etoh Time Seen by Provider: 02/01/25 15:56 History of Present Illness ED Provider: gm HPI narrative: 64 M etoh use disorder. BIBEMS. He is purportedly at a [facility] facility where they feel he is drinking alcohol and. Patient offers limited history no suggestion of traumatic injury Related Data Home Medications ?Medication ?Instructions ?Recorded ?Confirmed insulin lispro 100 unit/mL 0 sliding scale dose subcut QIDACHS 04/01/21 04/02/23 subcutaneous pen (Humalog KwikPen (U-100) Insulin) baclofen 10 mg tablet 20 mg PO BEDTIME 01/17/22 04/02/23 escitalopram oxalate 10 mg tablet 15 mg PO DAILY 01/17/22 04/02/23 albuterol sulfate 90 mcg/actuation 2 puff inhalation Q6H PRN Wheezing 04/25/22 04/02/23 aerosol inhaler cholecalciferol (vitamin D3) 25 25 mcg PO DAILY 04/25/22 04/02/23 mcg (1,000 unit) tablet cyanocobalamin (vitamin B-12) 1,000 mcg PO DAILY 04/25/22 04/02/23 1,000 mcg tablet,extended release ferrous sulfate 325 mg (65 mg 325 mg PO BID 04/25/22 04/02/23 iron) tablet folic acid 1 mg tablet 1 mg PO DAILY 04/25/22 04/02/23 lactulose 10 gram/15 mL (15 mL) 30 ml PO BID 04/25/22 04/02/23 oral solution lactulose 10 gram/15 mL (15 mL) 30 ml PO Q4H PRN Constipation 04/25/22 04/02/23 oral solution lorazepam 0.5 mg tablet 0.5 mg PO Q12H PRN Anxiety 04/25/22 04/02/23 melatonin 3 mg tablet 3 mg PO BEDTIME 04/25/22 04/03/23 multivitamin 1 tab PO DAILY 04/25/22 04/02/23 ondansetron HCl 4 mg tablet 4 mg PO Q8H PRN Nausea 04/25/22 04/02/23 oxycodone 5 mg tablet 5 mg PO Q6H PRN Pain 04/25/22 04/02/23 pantoprazole 40 mg tablet,delayed 40 mg PO DAILY 04/25/22 04/02/23 release (Protonix) polyethylene glycol 3350 17 gram 17 g PO BID 04/25/22 04/02/23 oral powder packet (Miralax) quetiapine 50 mg tablet 50 mg PO BID 04/25/22 04/02/23 sennosides 8.6 mg-docusate sodium 2 tab-cap PO BEDTIME 04/25/22 04/02/23 50 mg tablet (Senna-S) tamsulosin 0.4 mg capsule 0.4 mg PO BEDTIME 04/25/22 04/02/23 thiamine HCl (vitamin B1) 100 mg 100 mg PO DAILY 04/25/22 04/02/23 tablet gabapentin 800 mg tablet 800 mg PO TID 01/08/23 04/02/23 midodrine 5 mg tablet 5 mg PO TID 01/08/23 04/02/23 bisacodyl 10 mg rectal suppository 10 mg CO DAILY PRN Constipation 04/02/23 04/02/23 dextrose 40 % oral gel (Glucose 15 g PO Q15M PRN Hypoglycemia 04/02/23 04/02/23 Gel) glucagon 1 mg solution for 1 mg subcut Q20M PRN Hypoglycemia 04/02/23 04/02/23 injection (GlucaGen HypoKit) magnesium hydroxide 400 mg/5 mL 30 ml PO DAILY PRN Constipation 04/02/23 04/03/23 oral suspension (Milk of Magnesia) morphine 15 mg tablet,extended 30 mg PO BID 04/02/23 04/03/23 release naloxone 4 mg/actuation nasal 1 spray intranasal DAILY PRN 04/02/23 04/02/23 spray (Narcan) Opioid Overdose sodium phosphates 19 gram-7 118 ml CO DAILY PRN Constipation 04/02/23 04/02/23 gram/118 mL enema (Fleet Enema) spironolactone 100 mg tablet 100 mg PO DAILY 04/02/23 04/02/23 insulin lispro 100 unit/mL 10 unit subcut TIDAC 04/03/23 04/03/23 subcutaneous solution Previous Rx's ?Medication ?Instructions ?Recorded blood sugar diagnostic (FreeStyle #100 ea 06/23/21 Lite Strips) insulin glargine 100 unit/mL (3 45 unit (0.45 mL) subcut BEDTIME 04/04/23 mL) subcutaneous pen #15 mL Allergies Allergy/AdvReac Type Severity Reaction Status Date / Time No Known Drug Allergies Allergy Unknown Verified 02/01/25 16:10 [facility] Past Medical History Medical History Acidosis, lactic Acute dehydration Acute hyperglycemia Alcohol abuse Alcohol abuse Alcohol dependence with withdrawal Alcohol use disorder, severe, dependence Alcoholic gastritis Attention deficit disorder Degenerative disc disease, cervical Depression Diabetes mellitus Dyslipidemia Falls Head injury History of substance abuse Hypomagnesemia Hypotestosteronism Osteoarthritis of right hand Pancreatic cyst Pancreatitis Prolonged QT interval Pseudocyst of pancreas Thrombocytopenia Vomiting Surgical History History of surgery Hx of colonoscopy Family History Family History Father Cancer Mother Cancer Diabetes Social History Social History Household Members: Other Housing: Residential Unable to assess alcohol history related to: Refusing to respond Alcohol intake: current Alcohol intake frequency: 3 or more drinks per day Alcohol type: hard liquor Comment: pt refuses bed alarm Patient Tobacco Use Status: Never used Tobacco Tobacco use type: Cigar Cigarette Packs Per Day: 2 Cigarettes Per Day: 40.0 Years Smoked: 31 Smoked in Last 30 Days: Yes e-Cigarette/Vaping Use: Never Used Second Hand Smoke Exposure: No Use of substances other than those prescribed or required for medical reasons: No Substance Use Type: Marijuana Advance Directives: Yes Advance Directives on File: Yes Advance Directives Date on File: 03/05/21 Do you have a plan to hurt others: No Plan service: No Current occupational status: unemployed and disabled Current occupation: Right Handed Physical Exam ED Vital Signs: Vital Signs - 24 hr 02/01/25 16:06 02/01/25 16:11 Temperature 98.2 F 98.2 F Pulse Rate 95 95 Respiratory Rate 14 14 Blood Pressure 107/68 107/68 Pulse Oximetry 94 94 Oxygen Delivery Method Nasal Cannula Nasal Cannula BMI result Body Mass Index 33.7 Const Other: EXAM: Gen: resting, easily aroused. Slurring, etoh on breath. Head: Atraumatic Eyes: Anicteric, Normal conjunctiva. ENT: Moist mucosa, no pallor. ? Neck: Supple. Skin: ?No observable rash or bruising on exposed or examined skin Respiratory: Breathing comfortably, No distress.Clear to auscultation bilaterally, symmetric chest expansion, No wheeze, rales, ronchi. Cardiovascular: Regular rate and rhythm. No murmurs or rub. Well perfused periphery, warm extremities. No edema. ? Abdominal: No FOCAL TENDERNESS. Soft, no objective distension. No palpable masses or obvious organomegaly. ?No guarding, no rebound tenderness or other peritoneal findings. : No flank tenderness. Neuro: Alert. Gross movement of all extremities intact. ? Psych: Calm. Cooperative. MSK: No grossly visible deformity. Vital signs: See flowsheet Medical Decision Making Medical Decision Making MDM Narrative: 64-year-old male from [facility] facility suspected to be intoxicated with alcohol. Patient has no external signs of injury lab work was reassuring. He can be discharged back to his safe setting. Facility expressed desire for me to file a section 35 on the patient. No indication nor is there any legal right or obligation for me to file a section 35 never met this patient I do not know the historical substance use disorder history Differential Diagnosis Differential Diagnoses: The differential diagnosis associated with the presentation includes Acute alcohol intoxication, toxic or metabolic encephalopathy, electrolyte derangement, dehydration Lab Data 02/01/25 20:24 02/01/25 20:24 Labs: Lab Results 02/01/25 02/01/25 Range/Units 20:20 20:24 WBC 6.2 (4.8-10.8) X10*3/uL RBC 4.18 L D (4.60-5.80) X10*6/uL Hgb 13.2 L D (14.0-18.0) g/dl Hct 37.5 L (42.0-52.0) % MCV 89.7 (80.0-98.0) fL MCH 31.6 (27.0-33.0) pg MCHC 35.2 (31.0-36.0) g/dl RDW 13.8 (11.0-16.0) % Plt Count 89 L (160-400) X10*3/uL MPV 10.1 (9.4-12.4) fL Immature Gran % (Auto) 0.6 H (0.0-0.4) % Neut % (Auto) 60.5 (45-73) % Lymph % (Auto) 29.8 (20-40) % [place] % (Auto) 6.9 (2-11) % Eos % (Auto) 1.9 (0-4) % Baso % (Auto) 0.3 (0-2) % Lymph # (Auto) 1.9 (1.2-4.9) X10*3/uL [place] # (Auto) 0.4 (0.1-1.2) X10*3/uL Eos # (Auto) 0.1 (0.0-0.4) X10*3/uL Baso # (Auto) 0.0 (0.0-0.2) X10*3/uL Abs Immat Gran (auto) 0.04 H (0.00-0.03) X10*3/uL Absolute Neuts (auto) 3.8 (2.0-8.3) x10*3/uL Absolute Nucleated RBC 0.000 (0.0-0.012) X10*3/uL Nucleated RBC % (auto) 0.0 (0.0-0.2) /100WBC Smear Tech's Comments VERIFIED Sodium 141 (135-145) mmol/L Potassium 4.7 (3.3-5.1) mmol/L Chloride 105 (96-108) mmol/L Carbon Dioxide 25 (22-29) mmol/L Anion Gap 16 (12-20) BUN 18 H (9-16) mg/dL Creatinine 1.45 H (0.5-1.4) mg/dL Estim Creat Clear Calc 46.9 Estimated GFR 49 Random Glucose 88 (60-115) mg/dL Calcium 8.9 (8.4-10.2) mg/dL Total Bilirubin 0.3 (0.0-1.0) mg/dL AST 22 (5-37) U/L ALT 17 (0-40) U/L Alkaline Phosphatase 95 (39-117) U/L Total Protein 7.5 (6.5-8.0) g/dL Albumin 4.6 (3.5-5.0) g/dL Urine Opiates Screen POSITIVE H (Not Detect) Ur Buprenorphine Scrn Not Detected (Not Detect) ng/mL Ur Oxycodone Screen Not Detected (Not Detect) ng/mL Urine Methadone Screen Not Detected (Not Detect) ng/mL Urine Fentanyl Screen Not Detected (Not Detect) Ur Barbiturates Screen Not Detected (Not Detect) Ur Phencyclidine Scrn Not Detected (Not Detect) Ur Amphetamines Screen Not Detected (Not Detect) U Benzodiazepines Scrn Not Detected (Not Detect) Urine Cocaine Screen Not Detected (Not Detect) U Marijuana (THC) Screen Not Detected (Not Detect) Ethyl Alcohol 194 mg/dL Discharge Plan Discharge Clinical Impression: Alcohol intoxication Patient Disposition: Xfer SNF Instructions: Alcohol Intoxication (ED) Additional Instructions: DISCHARGE DIAGNOSES: Alcohol intoxication HISTORY OF PRESENTATION: Suspected to be intoxicated at [facility] facility. Sent for evaluation. EMERGENCY DEPARTMENT COURSE,TESTS, TREATMENTS: While in the ED today you were monitored for several hours. Your alcohol level was positive at 194. You had a chest x-ray with no signs of pneumonia or other acute cardiopulmonary pathology. You had stable CKD with a creatinine of 1.45 and no other actionable lab findings on the chemistry or blood counts DISCHARGE MEDICATIONS: ?[We have made no changes to your regular medication regimen] FOLLOW-UP: ?Call your primary or general physician soon as possible to discuss your symptoms, your ED visit and to discuss follow up plans PCP follow up INSTRUCTIONS ?& RETURN PRECAUTIONS: If any symptoms change first call your primary physician, if it is after-hours your primary doctors office should have a provider a r collections rep you can speak with. If the symptoms are severe or very concerning to you then call 911 or return to the ED. care home facility and/or family can pursue section 35 as outpatient no indication for holding the patient in the emergency department to perform this. Paul Terrell MD Emergency Physician [facility] Prescriptions: No Action (DME) FreeStyle Lite Strips Strip See Rx Instructions .Route Qty: 100 6RF Rx Instructions: As directed- In Vitro to test blood sugars TID insulin lispro [Humalog KwikPen Insulin] 100 unit/mL Insulin Pen 0 sliding scale dose SUBCUT QIDACHS Protocol: Insulin Correction Scale Less than or equal to 110 ---- Give (units): 0 111 to 150 Give (units): 0 151 to 200 Give (units): 2 201 to 250 Give (units): 4 251 to 300 Give (units): 6 301 to 350 Give (units): 8 Greater than 350 Give (units): 10 Call MD if Blood Glucose > : 350 baclofen 10 mg Tablet 20 mg PO BEDTIME escitalopram oxalate 10 mg Tablet 15 mg PO DAILY multivitamin Tablet 1 tab PO DAILY cyanocobalamin (vitamin B-12) 1,000 mcg Tablet Extended Release 1,000 mcg PO DAILY polyethylene glycol 3350 [Miralax] 17 gram Powder In Packet 17 g PO BID ondansetron HCl 4 mg Tablet 4 mg PO Q8H PRN (Reason: Nausea) sennosides-docusate sodium [Senna-S] 8.6-50 mg Tablet 2 tab-cap PO BEDTIME thiamine HCl (vitamin B1) 100 mg Tablet 100 mg PO DAILY melatonin 3 mg Tablet 3 mg PO BEDTIME lorazepam 0.5 mg Tablet 0.5 mg PO Q12H PRN (Reason: Anxiety) tamsulosin 0.4 mg Capsule 0.4 mg PO BEDTIME pantoprazole [Protonix] 40 mg Tablet,Delayed Release (Dr/Ec) 40 mg PO DAILY ferrous sulfate 325 mg (65 mg iron) Tablet 325 mg PO BID folic acid 1 mg Tablet 1 mg PO DAILY albuterol sulfate 90 mcg/actuation Hfa Aerosol Inhaler 2 puff INHALATION Q6H PRN (Reason: Wheezing) oxycodone 5 mg Tablet 5 mg PO Q6H PRN (Reason: Pain) quetiapine 50 mg Tablet 50 mg PO BID cholecalciferol (vitamin D3) 25 mcg (1,000 unit) Tablet 25 mcg PO DAILY lactulose 10 gram/15 mL (15 mL) Solution 30 ml PO Q4H PRN (Reason: Constipation) lactulose 10 gram/15 mL (15 mL) Solution 30 ml PO BID midodrine 5 mg Tablet 5 mg PO TID Rx Instructions: do not give last dose of day after 6PM or within 4 hrs of bedtime gabapentin 800 mg Tablet 800 mg PO TID spironolactone 100 mg Tablet 100 mg PO DAILY dextrose [Glucose Gel] 40 % Gel 15 g PO Q15M PRN (Reason: Hypoglycemia) Rx Instructions: until symptoms of low blood sugar are controlled magnesium hydroxide [Milk of Magnesia] 400 mg/5 mL Suspension 30 ml PO DAILY PRN (Reason: Constipation) Rx Instructions: Give 30 ml by mouth as needed for constipation (step 1) As needed if no bowel movement for three days. (Do not use for hemodialysis patients.) bisacodyl 10 mg Suppository 10 mg CO DAILY PRN (Reason: Constipation) Rx Instructions: insert 1 suppository rectally as needed for if no bowel movement for 8 hours after milk of magnesia Fleet Enema 19-7 gram/118 mL Enema 118 ml CO DAILY PRN (Reason: Constipation) Rx Instructions: insert 1 dose rectally as needed for constipation (step 3) as needed if no bowel movement for 8 hours after Bisacodyl suppository. GlucaGen HypoKit 1 mg Recon Soln 1 mg SUBCUT Q20M PRN (Reason: Hypoglycemia) Rx Instructions: Inject 1mg subcutaneously as needed for hypoglycemic protocol. Special instructions: Glucagen 1mg hypokit subcutaneous is FSBS below 60 and unable to swallow. Recheck FSBS in 10 minutes and update provider. naloxone [Narcan] 4 mg/actuation [place],Non-Aerosol 1 spray INTRANASAL DAILY PRN (Reason: Opioid Overdose) Rx Instructions: use as needed for respiratory depression/suspected opioid depression morphine 15 mg tablet extended release 30 mg PO BID Rx Instructions: Partial Fill upon patient request. insulin lispro 100 unit/mL Solution 10 unit SUBCUT TIDAC insulin glargine 100 unit/mL (3 mL) insulin pen 45 unit SUBCUT BEDTIME Qty: 15 0RF Interventions: ED Discharge Assessment Last Done: 02/02/25 00:06 Discharge Date/Time: 02/02/25 00:38 Print Language: Grenadian
[2025-02-01 18:28] VITALS: BP 107/68; PULSE 95; RESP 14; TEMP 36.8; O2SAT 94
[2025-02-01 20:18] VITALS: BP 118/71; PULSE 78; RESP 18; TEMP 36.8; O2SAT 97
[2025-02-01 20:39] LABS: Hemoglobin 13.2 g/dl (14.0-18.0); PLT CLUMP 1; SCAN SMEAR FLAG 1
[2025-02-01 20:41] LABS: Basophils Percent Auto 0.3 % (0-2); Eosinophils Absolute Auto 0.1 X10*3/uL (0.0-0.4); Eosinophils Percent Auto 1.9 % (0-4); Hematocrit 37.5 % (42.0-52.0); Imm Gran Abs Auto 0.04 X10*3/uL (0.00-0.03); Imm Gran Pct Auto 0.6 % (0.0-0.4); Lymphocytes Absolute Auto 1.9 X10*3/uL (1.2-4.9); Lymphocytes Percent Auto 29.8 % (20-40); MANUAL DIFF FLAG SCAN; Mean Corpuscular HGB Conc 35.2 g/dl (31.0-36.0); Mean Corpuscular Hemoglobin 31.6 pg (27.0-33.0); Mean Corpuscular Volume 89.7 fL (80.0-98.0); Mean Platelet Volume 10.1 fL (9.4-12.4); Monocytes Absolute Auto 0.4 X10*3/uL (0.1-1.2); Monocytes Percent Auto 6.9 % (2-11); Neutrophils Absolute Auto 3.8 x10*3/uL (2.0-8.3); Neutrophils Percent Auto 60.5 % (45-73); Red Blood Count 4.18 X10*6/uL (4.60-5.80); Red Cell Distribution Width 13.8 % (11.0-16.0)
[2025-02-01 20:42] LABS: Alanine Aminotransferase 17 U/L (0-40); Albumin Level 4.6 g/dL (3.5-5.0); Alkaline Phosphatase 95 U/L (39-117); Anion Gap 16 (12-20); Aspartate Amino Transferase 22 U/L (5-37); Bilirubin Total 0.3 mg/dL (0.0-1.0); Blood Urea Nitrogen 18 mg/dL (9-16); Calcium 8.9 mg/dL (8.4-10.2); Carbon Dioxide 25 mmol/L (22-29); Chloride 105 mmol/L (96-108); Creatinine Clr Calc Pharmacy 46.9; Estimated Glomerular Filt Rate 49; Ethanol 194 mg/dL; Glucose Random 88 mg/dL (60-115); Potassium 4.7 mmol/L (3.3-5.1); Sodium 141 mmol/L (135-145); Total Protein 7.5 g/dL (6.5-8.0)
[2025-02-01 20:42] LABS: Amphetamine Screen Urine Not Detected (Not Detect); Barbiturates, Urine Not Detected (Not Detect); Benzodiazepines Screen Urine Not Detected (Not Detect); Buprenorphine Scr Not Detected (Not Detect); Cannabinoid Screen Urine Not Detected (Not Detect); Cocaine Screen Urine Not Detected (Not Detect); Fentanyl, urine Not Detected (Not Detect); Methadone Screen, Urine Not Detected (Not Detect); Opiate Screen Urine POSITIVE (Not Detect); Oxycodone Screen Urine Not Detected (Not Detect); Phencyclidine Screen Urine Not Detected (Not Detect)
[2025-02-01 21:11] LABS: White Blood Count 6.2 X10*3/uL (4.8-10.8)
[2025-02-01 21:59] LABS: Platelet Count 89 X10*3/uL (160-400); SLIDE REVIEW VERIFIED
--- NOTE | 2025-02-01 22:08 | PC.NURSE ---
Spoke to facility practice specialist, updated on plan of care.
--- NOTE | 2025-02-01 23:43 | PC.NURSE ---
Transport to Facility At this time called [facility] and updated nurse Romi of pt's plan. Pt due to D/C and awaiting EMS transfer back to facility.
[2025-02-01 23:56] VITALS: BP 113/74; PULSE 94; RESP 15; TEMP 36.6; O2SAT 99
[2025-02-02 00:06] VITALS: BP 113/74; PULSE 94; RESP 15; TEMP 36.6; O2SAT 99
== END 2025-02-02 00:38 | disposition skilled nursing facility (03) ==
PROVIDERS: Emergency Provider Emergency Medicine
DX: F10.129 Alcohol abuse with intoxication, unspecified (principal); Y90.6 Blood alcohol level of 120-199 mg/100 ml; R09.02 Hypoxemia; Z51.81 Encounter for therapeutic drug level monitoring; Z79.899 Other long term (current) drug therapy
CPT/HCPCS: 36415; 71045; 80053; 80307; 85025; 99284

== ENCOUNTER → 2025-02-01 19:50 | Outpatient (BNV) | payer MEDICAID, SELFPAY | PROVIDERS: Emergency Provider Emergency Medicine; Visit Provider Radiology Diagnostic Radiology | DX: J98.11 Atelectasis (principal) | CPT/HCPCS: 71045 ==